=== PATIENT | female | born 1950 | race Caucasian/White ===

== ENCOUNTER 2016-10-07 19:41 | Emergency (ER) | payer MEDICARE, BC ==
--- NOTE | 2016-10-07 20:11 | XR ---
EXAMINATION TYPE: XR chest 1V portable DATE OF EXAM: 10/07/2016 COMPARISON: 03/19/2014 HISTORY: Altered mental status. Tube placement. TECHNIQUE: Single frontal view of the chest is obtained. FINDINGS: Endotracheal tube appears in good position. There is a nasogastric tube noted. There is le ft axillary pacemaker with the lead tips in the right ventricle. There are chest leads. Exam is limit ed by patient size. There is mild pulmonary congestion. Heart appears enlarged. IMPRESSION: Endotracheal tube is in good position. There is probably congestive heart failure.
[2016-10-07] MEDS ORDERED: PHYTONADIONE 10 MG in SODIUM CHLORIDE 0.9% 50 ML IVPB STA (20:16)
[2016-10-07] MEDS ORDERED: levETIRAcetam IV 1,000 MG in SALINE 1 100ML.BAG IVPB STA (20:17)
--- NOTE | 2016-10-07 20:27 | CT ---
EXAMINATION TYPE: CT brain wo con DATE OF EXAM: 10/07/2016 COMPARISON: NONE HISTORY: Patient unresponsive at time of exam. Altered mental status. CT DLP: 801.5 mGycm Automated exposure control for dose reduction was used. FINDINGS: There is a 5 x 2.5 cm area of increased attenuation in the left frontal lobe related to acute intrapa renchymal hemorrhage. There is slight mass effect and effacement of the adjacent sulci. Ventricles newell ve normal size. The calvarium is intact. IMPRESSION: ACUTE INTRAPARENCHYMAL LEFT FRONTAL LOBE HEMORRHAGE PROBABLY DUE TO HEMORRHAGIC INFARCT. THIS EXAM WA S DISCUSSED WITH EMERGENCY ROOM PHYSICIAN AT 8:25 PM.
[2016-10-07 20:52] LABS: Appearance,Urine Cloudy (Clear); Bacteria,Urine Many /hpf; Bilirubin,Urine Negative (Negative); Glucose,Urine (UA) Negative (Negative); Ketones,Urine 1+ (Negative); Leukocyte Esterase,Urine Large (Negative); Mucus,Urine Occasional /hpf; Nitrite,Urine Positive (Negative); Particle Count 61389; Protein,Urine 2+ (Negative); RBC,Urine 29 /hpf (0-5); Specific Gravity,Urine 1.017 (1.001-1.035); Squamous Epithelial Cell,Urine 2 /hpf (0-4); UA Billing (MACRO vs. MICRO) MICRO; Urobilinogen,Urine <2.0 mg/dL (<2.0); WBC,Urine >182 /hpf (0-5)
[2016-10-07 20:52] LABS: ALT 24 U/L (9-52); AST 20 U/L (14-36); Alkaline Phosphatase 81 U/L (38-126); Anion Gap 11 mmol/L; Anisocytosis Slight; Basophils # (A) 0.1 k/uL (0-0.2); Basophils % (A) 0 %; Blood Urea Nitrogen 19 mg/dL (7-17); CH 27.9; CHCM 32.7; Carbon Dioxide 20 mmol/L (22-30); Chloride 111 mmol/L (98-107); Creatine Kinase 54 U/L (30-135); Eosinophils % (A) 0 %; Glucose 118 mg/dL (74-99); HCT 40.8 % (34.0-46.0); HDW 2.94; HGB 13.6 gm/dL (11.4-16.0); Luc # (Auto) 0.11; Luc % (Auto) 1; Lymphocytes # (A) 0.9 k/uL (1.0-4.8); Lymphocytes % (A) 6 %; MCH 28.6 pg (25.0-35.0); MCHC 33.2 g/dL (31.0-37.0); MCV 85.9 fL (80.0-100.0); Mean Platelet Volume 9.3; Monocytes # (A) 0.4 k/uL (0-1.0); Monocytes % (A) 3 %; Neutrophils # (A) 12.8 k/uL (1.3-7.7); Neutrophils % (A) 90 %; Non-African American GFR(MDRD) >60 (>60 ml/min/1.73 sqM); RBC 4.75 m/uL (3.80-5.40); RDW 17.6 % (11.5-15.5); Sodium 142 mmol/L (137-145); Total Bilirubin 1.3 mg/dL (0.2-1.3); Total Protein 6.8 g/dL (6.3-8.2); WBC 14.3 k/uL (3.8-10.6); WBC (Perox) 13.56
[2016-10-07 20:57] LABS: INR 1.7 (<1.2); Partial Thromboplastin Time 27.3 sec (22.0-30.0); Prothrombin Time 16.8 sec (9.0-12.0)
[2016-10-07 21:04] LABS: Creatine Kinase MB 0.3 ng/mL (0.0-2.4); Troponin I <0.012 ng/mL (0.000-0.034)
[2016-10-07] MEDS ORDERED: PROPOFOL 1,000 MG/100 ML VIAL IV ONE (21:06)
[2016-10-07 21:07] VITALS: RESP 20
--- NOTE | 2016-10-07 21:11 | ED ---
General Adult HPI - General Chief complaint: Altered Mental Status Stated complaint: Unresponsive Time Seen by Provider: 10/07/16 19:52 Source: EMS, RN notes reviewed Mode of arrival: EMS Limitations: altered mental status - History of Present Illness Initial comments: 58-year-old female presenting with altered mental status, patient was transported by EMS. She is unable to give a history. She is on Coumadin. According to EMS history patient did complain of a headache, became unresponsive proximally 2 hours ago. During transport. Blood pressure was 230/ 130, right pupil 4 mm and sluggish, left pupil 3 mm and reactive, patient did have right-sided gaze, she was not moving any extremities spontaneously per EMS. - Related Data Home Medications Medication Instructions Recorded Confirmed Metoprolol Succinate [Toprol XL] 150 mg PO HS 02/09/15 10/07/16 Digoxin [Lanoxin] 125 mcg PO TID 10/07/16 10/07/16 Furosemide [Lasix] 40 mg PO DAILY 10/07/16 10/07/16 Lisinopril [Zestril] 20 mg PO DAILY 10/07/16 10/07/16 Metoprolol Succinate [Toprol XL] 200 mg PO QAM 10/07/16 10/07/16 Pravastatin Sodium [Pravachol] 20 mg PO BID 10/07/16 10/07/16 Allergies Allergy/AdvReac Type Severity Reaction Status Date / Time No Known Drug Allergies Allergy Unknown Verified 10/07/16 20:00 Review of Systems ROS Statement: Those systems with pertinent positive or pertinent negative responses have been documented in the HPI. Limitations: ROS unobtainable due to patients medical condition Past Medical History Past Medical History: Atrial Fibrillation, Heart Failure, COPD, GERD/Reflux, Hyperlipidemia, Hypertension Additional Past Medical History / Comment(s): PATIENT IS VERY SHORT OF BREATH TODAY (02/08/15), STATES SHE HAS BEEN LIKE THIS FOR MONTHS. SEE DR. BURNETT'S NOTE FOR CARDIAC HISTORY. KIDNEY STONES History of Any Multi-Drug Resistant Organisms: None Reported Past Surgical History: Joint Replacement, Pacemaker Additional Past Surgical History / Comment(s): LEFT TOTAL KNEE SURGERY WITH BONE GRAFT. Past Anesthesia/Blood Transfusion Reactions: No Reported Reaction Type of Cardiac Device: Permanent Pacemaker Device Placement Date:: 04/24/2013 Past Psychological History: Depression Smoking Status: Never smoker Past Alcohol Use History: None Reported Past Drug Use History: None Reported - Past Family History Father Additional Family Medical History / Comment(s): BRAIN ANEURYSM Mother Family Medical History: Coronary Artery Disease (CAD), Dementia Additional Family Medical History / Comment(s): FROM "HEART DISEASE " PER PATIENT. General Exam - General Exam Comments Initial Comments: 58-year-old female presented by EMS, initial examination revealed a hypertensive obese female with right gaze palsy, Pupils 4 mm sluggish, left pupil is 3 mm and reactive. Patient was unresponsive to deep sternal rub. She did withdraw to pain in the left upper and left lower extremity. There was no movement in the right upper or right lower extremity. Patient's head. The right. She does spontaneous respirations, however she was not protecting her airway. Lungs were equal, diminished bilaterally. Abdomen obese, soft, nondistended. 2+ pedal edema is present Limitations: altered mental status Course Vital Signs 10/07/16 10/07/16 19:54 20:33 Temperature 99.1 F Pulse Rate 121 H 112 H Respiratory 20 24 Rate Blood Pressure 173/111 166/95 O2 Sat by Pulse 98 99 Oximetry - Reevaluation(s) Reevaluation #1: 10/07/16 21:07 Patient was intubated for airway protection. Urgently taken to head CT. EKG Findings - EKG Comments: EKG Findings:: Sinus tachycardia ventricular rate of 106, QRS 78, QTC 494 Procedures - Intubation Time Out Performed: Yes Sedative: Etomidate Paralytic: Succinylcholine Laryngoscope: Pillo Size: 4 ET Tube Size: 7.5 ET Tube Uncuffed: No Tube Secured Depth (cm): 22 Tube Secured Location: lips Tube Placement Confirmation: visualized tube passing through cords, equal breath sounds bilaterally, no breath sounds over epigastrium, confirmation by capnometry Patient Tolerated Procedure: well Intubation Complications: none Medical Decision Making - Medical Decision Making 58-year-old female presenting with altered mental status, she complained of a headache prior to arrival. Initial evaluation patient is hypertensive, right- sided gaze, unequal pupils, she is on Coumadin. Patient was intubated and urgently taken to head CT. Head CT reviewed by myself reveals intraparenchymal hemorrhage. Patient is on Coumadin, she was given seizure prophylaxis, vitamin K, and fresh frozen plasma. Chest x-ray shows pulmonary edema, ET tube is in proper position. INR is 1.7, all other laboratory studies are pending. Patient will be transferred for neurosurgical evaluation. Diagnosis: Left intraparenchymal hemorrhage, on Coumadin. - Lab Data Result diagrams: 10/07/16 19:55 10/07/16 19:55 Lab Results 10/07/16 10/07/16 10/07/16 Range/Units 19:55 19:55 19:55 WBC 14.3 H (3.8-10.6) k/uL RBC 4.75 (3.80-5.40) m/uL Hgb 13.6 (11.4-16.0) gm/dL Hct 40.8 (34.0-46.0) % MCV 85.9 (80.0-100.0) fL MCH 28.6 (25.0-35.0) pg MCHC 33.2 (31.0-37.0) g/dL RDW 17.6 H (11.5-15.5) % Plt Count 213 (150-450) k/uL Neutrophils % 90 % Lymphocytes % 6 % Monocytes % 3 % Eosinophils % 0 % Basophils % 0 % Neutrophils # 12.8 H (1.3-7.7) k/uL Lymphocytes # 0.9 L (1.0-4.8) k/uL Monocytes # 0.4 (0-1.0) k/uL Eosinophils # 0.0 (0-0.7) k/uL Basophils # 0.1 (0-0.2) k/uL Anisocytosis Slight PT (9.0-12.0) sec INR (<1.2) APTT (22.0-30.0) sec Sodium 142 (137-145) mmol/L Potassium 5.0 (3.5-5.1) mmol/L Chloride 111 H (98-107) mmol/L Carbon Dioxide 20 L (22-30) mmol/L Anion Gap 11 mmol/L BUN 19 H (7-17) mg/dL Creatinine 0.80 (0.52-1.04) mg/dL Est GFR (MDRD) Af Amer >60 (>60 ml/min/1.73 sqM) Est GFR (MDRD) Non-Af >60 (>60 ml/min/1.73 sqM) Glucose 118 H (74-99) mg/dL Calcium 9.0 (8.4-10.2) mg/dL Total Bilirubin 1.3 (0.2-1.3) mg/dL AST 20 (14-36) U/L ALT 24 (9-52) U/L Alkaline Phosphatase 81 (38-126) U/L Total Creatine Kinase 54 (30-135) U/L Total Protein 6.8 (6.3-8.2) g/dL Albumin 4.0 (3.5-5.0) g/dL Urine Color Urine Appearance (Clear) Urine pH (5.0-8.0) Ur Specific [place] (1.001-1.035) Urine Protein (Negative) Urine Glucose (UA) (Negative) Urine Ketones (Negative) Urine Blood (Negative) Urine Nitrite (Negative) Urine Bilirubin (Negative) Urine Urobilinogen (<2.0) mg/dL Ur Leukocyte Esterase (Negative) Urine RBC (0-5) /hpf Urine WBC (0-5) /hpf Urine WBC Clumps (None) /hpf Ur Squamous Epith Cells (0-4) /hpf Urine Bacteria (None) /hpf Urine Mucus (None) /hpf 10/07/16 10/07/16 Range/Units 19:55 20:37 WBC (3.8-10.6) k/uL RBC (3.80-5.40) m/uL Hgb (11.4-16.0) gm/dL Hct (34.0-46.0) % MCV (80.0-100.0) fL MCH (25.0-35.0) pg MCHC (31.0-37.0) g/dL RDW (11.5-15.5) % Plt Count (150-450) k/uL Neutrophils % % Lymphocytes % % Monocytes % % Eosinophils % % Basophils % % Neutrophils # (1.3-7.7) k/uL Lymphocytes # (1.0-4.8) k/uL Monocytes # (0-1.0) k/uL Eosinophils # (0-0.7) k/uL Basophils # (0-0.2) k/uL Anisocytosis PT 16.8 H (9.0-12.0) sec INR 1.7 H (<1.2) APTT 27.3 (22.0-30.0) sec Sodium (137-145) mmol/L Potassium (3.5-5.1) mmol/L Chloride (98-107) mmol/L Carbon Dioxide (22-30) mmol/L Anion Gap mmol/L BUN (7-17) mg/dL Creatinine (0.52-1.04) mg/dL Est GFR (MDRD) Af Amer (>60 ml/min/1.73 sqM) Est GFR (MDRD) Non-Af (>60 ml/min/1.73 sqM) Glucose (74-99) mg/dL Calcium (8.4-10.2) mg/dL Total Bilirubin (0.2-1.3) mg/dL AST (14-36) U/L ALT (9-52) U/L Alkaline Phosphatase (38-126) U/L Total Creatine Kinase (30-135) U/L Total Protein (6.3-8.2) g/dL Albumin (3.5-5.0) g/dL Urine Color Yellow Urine Appearance Cloudy H (Clear) Urine pH 6.0 (5.0-8.0) Ur Specific [place] 1.017 (1.001-1.035) Urine Protein 2+ H (Negative) Urine Glucose (UA) Negative (Negative) Urine Ketones 1+ H (Negative) Urine Blood Moderate H (Negative) Urine Nitrite Positive H (Negative) Urine Bilirubin Negative (Negative) Urine Urobilinogen <2.0 (<2.0) mg/dL Ur Leukocyte Esterase Large H (Negative) Urine RBC 29 H (0-5) /hpf Urine WBC >182 H (0-5) /hpf Urine WBC Clumps Many H (None) /hpf Ur Squamous Epith Cells 2 (0-4) /hpf Urine Bacteria Many H (None) /hpf Urine Mucus Occasional H (None) /hpf Critical Care Time Critical Care Time: Yes Total Critical Care Time: 65 Disposition Clinical Impression: Intracranial hemorrhage Disposition: OTHER INSTITUTION NOT DEFINED Condition: Serious Referrals: Ritchie Rose MD [Primary Care Provider] - 1-2 days Time of Disposition: 21:10 - Out of Hospital Transfer - Req. Specs Out of Hospital Transfer - Requested Specifics: Surgical ICU (Artie Hubbell)
[2016-10-07 21:52] LABS: ABG Base Excess -5.1 mmol/L; ABG HCO3 19 mmol/L (21-25); ABG PCO2 33 mmHg (35-45); ABG PH 7.38 (7.35-7.45); ABG PO2 268 mmHg (83-108); ABG TCO2 20 mmol/L (19-24)
[2016-10-07 21:54] VITALS: BP 166/80; PULSE 103; TEMP 100
== END 2016-10-07 22:24 | disposition short-term general hospital (02) ==
LOC: EC 19:41
DX: I62.9 Nontraumatic intracranial hemorrhage, unspecified (principal); I48.91 Unspecified atrial fibrillation; I11.0 Hypertensive heart disease with heart failure; I50.9 Heart failure, unspecified; E78.5 Hyperlipidemia, unspecified; E66.9 Obesity, unspecified; Z68.43 Body mass index [BMI] 50.0-59.9, adult; Z79.01 Long term (current) use of anticoagulants; Z79.899 Other long term (current) drug therapy
CPT/HCPCS: 99291; 31500; 96365; 96368; 36415; 36600; 94002; 93005; 86900; 86901; 80053; 82550; 82553; 82805; 84484; 85025; 85610; 85730; 86850; 81001; 80306; 71010; 70450; P9059; J3430; J2704; J1953

== ENCOUNTER 2017-06-04 13:42 | Day surgery (SDC) | payer MEDICARE, BC ==
[2017-05-29 14:09] VITALS: BMI 58.7
[~2017-06-04 13:42] MED LIST: SODIUM CHLORIDE 0.9% 1,000 ML IV SCH; ceFAZolin 1,000 MG in SODIUM CHLORIDE 0.9% IRRIGATIO 250 ML IRRIGATION ONE; ceFAZolin IN SWFI 2 GM/20 ML SYRINGE IVP ONE
[2017-06-04 14:20] LABS: Basophils # (A) 0.1 k/uL (0-0.2); Basophils % (A) 1 %; Eosinophils # (A) 0.3 k/uL (0-0.7); Eosinophils % (A) 4 %; HCT 44.5 % (34.0-46.0); HGB 14.9 gm/dL (11.4-16.0); Lymphocytes # (A) 0.9 k/uL (1.0-4.8); Lymphocytes % (A) 11 %; MCH 27.5 pg (25.0-35.0); MCHC 33.4 g/dL (31.0-37.0); MCV 82.4 fL (80.0-100.0); Mean Platelet Volume 8.8; Monocytes # (A) 0.4 k/uL (0-1.0); Monocytes % (A) 5 %; Neutrophils # (A) 6.1 k/uL (1.3-7.7); Neutrophils % (A) 78 %; Platelet Count 200 k/uL (150-450); RBC 5.41 m/uL (3.80-5.40); RDW 15.4 % (11.5-15.5); WBC 7.9 k/uL (3.8-10.6)
[2017-06-04 14:33] LABS: Anion Gap 12 mmol/L; Blood Urea Nitrogen 15 mg/dL (7-17); Calcium 9.6 mg/dL (8.4-10.2); Carbon Dioxide 24 mmol/L (22-30); Chloride 108 mmol/L (98-107); Glucose 98 mg/dL (74-99); Potassium 4.3 mmol/L (3.5-5.1); Sodium 144 mmol/L (137-145)
[2017-06-04] MEDS ORDERED: ACETAMINOPHEN TAB 325 MG TAB PO PRN (17:52)
[2017-06-04] MEDS ORDERED: ceFAZolin IN SWFI 2 GM/20 ML SYRINGE IVP SCH ×2 (18:00→22:00)
--- NOTE | 2017-06-04 18:01 | P.DS ---
Providers Attending physician: Memo Boo Primary care physician: [facility] Course: Patient underwent successful biventricular pacemaker generator change She received 3 g of Kefzol preoperatively and 2 g of at 10 PM and was discharged home on same day Impression Permanent atrial fibrillation Unable to anticoagulate history of intracerebral bleed Cardiomyopathy Left bundle branch block Congestive heart failure Bradycardia Status post biventricular pacemaker generator change Device was at [facility] Plan Oral antibiotics 2 doses She will follow-up with the device clinic in 5 days She is to keep the wound dry for 5 days She will follow-up with Dr. Marshall in about 4 months Plan - Discharge Summary Discharge Rx Participant: Yes New Discharge Prescriptions: Continue Lisinopril [Zestril] 20 mg PO DAILY Digoxin [Lanoxin] 125 mcg PO MOWEFR Atorvastatin [Lipitor] 40 mg PO HS Metoprolol Succinate [Toprol XL] 200 mg PO DAILY traMADol HCL [Ultram] 50 mg PO BID Discharge Medication List Digoxin [Lanoxin] 125 mcg PO MOWEFR 10/07/16 [History] Lisinopril [Zestril] 20 mg PO DAILY 10/07/16 [History] Atorvastatin [Lipitor] 40 mg PO HS 05/29/17 [History] Metoprolol Succinate [Toprol XL] 200 mg PO DAILY 05/29/17 [History] traMADol HCL [Ultram] 50 mg PO BID 05/29/17 [History] Follow up Appointment(s)/Referral(s): Memo Boo MD [STAFF PHYSICIAN] - 6 Weeks Activity/Diet/Wound Care/Special Instructions: Keep wound dry for 5 days. Follow-up in the device clinic in [address] Marshall in about 3-4 months No changes in medications Patient is not a candidate for anticoagulation Discharge Disposition: HOME SELF-CARE
[2017-06-04] MEDS ORDERED: MIDAZOLAM 2 MG/2 ML VIAL ONE (18:02)
[2017-06-04] MEDS ORDERED: fentaNYL (PF) 50 MCG/ML 2 ML AMP ONE (18:02)
[2017-06-04] MEDS ORDERED: MIDAZOLAM 2 MG/2 ML VIAL IV ONE (18:03)
[2017-06-04] MEDS: fentaNYL (PF) 50 MCG/ML 2 ML AMP IV ONE ×2 (18:15→18:53)
[2017-06-04] MEDS ORDERED: LIDOCAINE 1% INJ 10MG/ML (20 ML MDV) SQ ONE ×2 (18:15)
--- NOTE | 2017-06-04 18:57 | P.PCN ---
Preoperative Diagnosis: Patient underwent EP procedure under conscious sedation/moderate sedation, monitoring of the level of consciousness and physiologic parameters including but not limited to vital signs and oxygenation. Patient tolerated the procedure well without any acute complications. Start time: 1812 Stop time: 0 37 minutes
[2017-06-04] MEDS ORDERED: METOPROLOL SUCCINATE (ER) 100 MG TAB.ER.24H PO STA (19:02)
[2017-06-04] MEDS ORDERED: ACETAMINOPHEN IV (For NPO) 1,000 MG in EMPTY BAG 1 BAG IVPB ONE (19:30)
[2017-06-04 19:43] VITALS: PULSE 81; TEMP 97.8
--- NOTE | 2017-06-04 22:31 | CE ---
CARDIAC ELECTROPHYSIOLOGY REPORT Ana Sheppard is a 66-year-old female with known bradycardia, cardiomyopathy, status post biventricular pacemaker, now in permanent atrial fibrillation, whose device was at [facility]. She was brought in for a biventricular pacemaker generator change. She was brought to the EP lab in a fasting state. Written informed consent was obtained prior to the procedure. The left shoulder area was prepped and draped as per protocol. Lidocaine 1% was used for local anesthesia. An incision was made directly over the previous surgical site and carried down to the level of the generator. The scar tissue was excised. Partial capsulectomy was performed. Hemostasis was assured. The old generator (Medtronic C4TR01, serial #[id number]) was explanted. The new generator, [employer] model #HF1652 serial #[id number], was implanted. The atrial lead was a Medtronic model #5592, serial number [id number]. Pacing impedance was 410 ohms. Fibrillatory wave sensing was 1 mV. The RV lead was a Medtronic model #5092, serial #[id number]. R-waves 11.3 mV and pacing impedance 440 ohms. Pacing threshold 0.75 v at 0.4 milliseconds. The LV lead was a Medtronic model #4396, serial #[id number]. Pacing impedance 510 ohms, pacing threshold 3.25 v at 1.5 milliseconds. The device was then programmed to VVTR mode 60-130 ppm. LV offset 20 milliseconds. The wound was closed in 3 layers and dressed per protocol. She received IV antibiotics just prior to the procedure. The patient tolerated the procedure well without any acute complications. RESULT: Successful biventricular pacemaker generator change for device at [facility]. MMODL / IJN: [id number] /
[2017-06-04 22:51] VITALS: BP 173/96
[2017-06-05 00:16] VITALS: RESP 18
== END 2017-06-04 23:15 | disposition home or self-care (01) ==
LOC: CATHEP 13:42 → 3OBS 18:50 → CATHEP 23:15
PROVIDERS: ATTEND Internal Medicine Clinical Cardiac Electrophysiology
DX: Z45.010 Encounter for checking and testing of cardiac pacemaker pulse generator [battery] (principal); I48.2 Chronic atrial fibrillation; I42.9 Cardiomyopathy, unspecified; I44.7 Left bundle-branch block, unspecified; I50.9 Heart failure, unspecified; R00.1 Bradycardia, unspecified; Z79.891 Long term (current) use of opiate analgesic; Z79.899 Other long term (current) drug therapy
CPT/HCPCS: 33229; 80048; 85025; C2621; J2250; J0690 ×3; J2001; J3010

== ENCOUNTER 2018-02-20 09:17 | Inpatient (IN) | payer MEDICARE, BC ==
[2018-02-20] MEDS ORDERED: ALBUTEROL NEBULIZED 2.5 MG/3 ML INHALATION STA (09:27)
[2018-02-20] MEDS ORDERED: IPRATROPIUM 0.5 MG/2.5 ML NEBU INHALATION STA (09:27)
[2018-02-20] MEDS ORDERED: methylPREDNISolone SOD SUCCI 125 MG/2 ML VIAL IV STA (09:27)
[2018-02-20] MEDS ORDERED: FUROSEMIDE 10 MG/ML 4 ML VIAL IV STA ×2 (09:33→11:07)
--- NOTE | 2018-02-20 09:36 | ED ---
General Adult HPI - General Chief complaint: Shortness of Breath Stated complaint: RENZO Time Seen by Provider: 02/20/18 09:25 Source: patient, RN notes reviewed, old records reviewed Mode of arrival: EMS Limitations: no limitations - History of Present Illness Initial comments: 67-year-old female presents with 24 hours of dyspnea. Patient is also had cough and rhinorrhea. No history of COPD, no history of tobacco use. Patient does have previous history of heart failure and history of atrial fibrillation status post pacemaker. Denies fever but states she's had some chills. Denies chest pain. Denies abdominal pain nausea or vomiting. Denies new lower extremity swelling or tenderness patient does have some chronic bilateral lower extremity pain which is unchanged from baseline. Patient reports recent weight gain. - Related Data Home Medications Medication Instructions Recorded Confirmed Digoxin [Lanoxin] 125 mcg PO MOWEFR 10/07/16 02/20/18 Atorvastatin [Lipitor] 40 mg PO HS 05/29/17 02/20/18 Acetaminophen Tab [Tylenol Tab] 1,000 mg PO BID 02/20/18 02/20/18 Irbesartan 300 mg PO DAILY 02/20/18 02/20/18 Metoprolol Succinate (ER) [Toprol 100 mg PO BID 02/20/18 02/20/18 Xl] Allergies Allergy/AdvReac Type Severity Reaction Status Date / Time aspirin AdvReac Unknown STATES SHE Verified 02/20/18 09:28 WAS TOLD NOT TO TAKE. NSAIDS (Non-Steroidal AdvReac Unknown STATES SHE Verified 02/20/18 09:28 Anti-Inflamma WAS TOLD TO AVOID Iodinated Contrast- Oral and AdvReac Verified 02/20/18 10:43 IV Dye Review of Systems ROS Statement: Those systems with pertinent positive or pertinent negative responses have been documented in the HPI. ROS Other: All systems not noted in ROS Statement are negative. 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 History of Any Multi-Drug Resistant Organisms: None Reported Past Surgical History: Joint Replacement, Pacemaker, Tonsillectomy Additional Past Surgical History / Comment(s): LEFT TOTAL KNEE WITH BONE GRAFT., Past Anesthesia/Blood Transfusion Reactions: No Reported Reaction Type of Cardiac Device: Permanent Pacemaker Device Placement Date:: 04/24/2013 Past Psychological History: Anxiety, Depression Smoking Status: Never smoker Past Alcohol Use History: Rare Past Drug Use History: None Reported - Past Family History Father Additional Family Medical History / Comment(s): BRAIN ANEURYSM Mother Family Medical History: Coronary Artery Disease (CAD), Dementia Additional Family Medical History / Comment(s): FROM "HEART DISEASE " PER PATIENT. General Exam Limitations: no limitations General appearance: alert, in no apparent distress Head exam: Present: atraumatic, normocephalic Eye exam: Present: normal appearance, PERRL ENT exam: Present: normal exam Neck exam: Present: normal inspection. Absent: tenderness, meningismus Respiratory exam: Present: respiratory distress, wheezes, decreased breath sounds. Absent: rhonchi Cardiovascular Exam: Present: regular rate, normal rhythm GI/Abdominal exam: Present: soft. Absent: distended, tenderness, guarding, rebound Extremities exam: Present: normal capillary refill, pedal edema. Absent: calf tenderness Neurological exam: Present: alert, oriented X3, motor sensory deficit Psychiatric exam: Present: normal affect, normal mood Skin exam: Present: warm, dry, intact. Absent: cyanosis, diaphoretic Course Vital Signs 02/20/18 02/20/18 02/20/18 09:22 09:30 09:32 Temperature 98.5 F Pulse Rate 71 92 94 Respiratory 30 H 12 Rate Blood Pressure 147/98 147/98 O2 Sat by Pulse 95 92 L Oximetry 02/20/18 02/20/18 02/20/18 10:00 10:10 10:20 Temperature Pulse Rate 92 96 Respiratory 20 19 Rate Blood Pressure 147/113 159/115 159/115 O2 Sat by Pulse 95 92 L Oximetry 02/20/18 02/20/18 02/20/18 10:30 10:40 10:50 Temperature Pulse Rate 89 93 93 Respiratory 20 19 18 Rate Blood Pressure 159/115 150/123 150/123 O2 Sat by Pulse 91 L 91 L 92 L Oximetry 02/20/18 02/20/18 11:21 11:33 Temperature 98.2 F Pulse Rate 96 Respiratory 24 Rate Blood Pressure 175/121 155/88 O2 Sat by Pulse 92 L Oximetry EKG Findings - EKG Comments: EKG Findings:: EKG: Atrial fibrillation left axis deviation, rate 97, QRS duration 82, QTC 431, no ST segment elevation Medical Decision Making - Medical Decision Making 67-year-old female with moderate to severe dyspnea. History of congestive heart failure. X-ray obtained, consistent with venous congestion and congestive heart failure. Significantly elevated BNP 8810. Normal white blood cell count, stable in room, normal CMP, negative troponin. Patient given nitroglycerin and Lasix in the emergency department. On reevaluation symptoms somewhat improved. She will be admitted for continued IV diuresis, telemetry, echo, cardiology consultation. Case discussed with admitting physician who will accept. - Lab Data Result diagrams: 02/20/18 09:35 02/20/18 09:35 Lab Results 02/20/18 02/20/18 02/20/18 Range/Units 09:35 09:35 09:35 WBC 6.2 (3.8-10.6) k/uL RBC 5.12 (3.80-5.40) m/uL Hgb 13.9 (11.4-16.0) gm/dL Hct 44.9 (34.0-46.0) % MCV 87.7 (80.0-100.0) fL MCH 27.2 (25.0-35.0) pg MCHC 31.0 (31.0-37.0) g/dL RDW 17.0 H (11.5-15.5) % Plt Count 155 (150-450) k/uL Neutrophils % 79 % Lymphocytes % 9 % Monocytes % 7 % Eosinophils % 3 % Basophils % 1 % Neutrophils # 4.9 (1.3-7.7) k/uL Lymphocytes # 0.5 L (1.0-4.8) k/uL Monocytes # 0.5 (0-1.0) k/uL Eosinophils # 0.2 (0-0.7) k/uL Basophils # 0.0 (0-0.2) k/uL Hypochromasia Moderate Anisocytosis Slight PT (9.0-12.0) sec INR (<1.2) APTT (22.0-30.0) sec Sodium 147 H (137-145) mmol/L Potassium 4.5 (3.5-5.1) mmol/L Chloride 113 H (98-107) mmol/L Carbon Dioxide 24 (22-30) mmol/L Anion Gap 10 mmol/L BUN 22 H (7-17) mg/dL Creatinine 0.83 (0.52-1.04) mg/dL Est GFR (CKD-EPI)AfAm 84 (>60 ml/min/1.73 sqM) Est GFR (CKD-EPI)NonAf 73 (>60 ml/min/1.73 sqM) Glucose 118 H (74-99) mg/dL Plasma Lactic Acid Eduardo (0.7-2.0) mmol/L Calcium 9.4 (8.4-10.2) mg/dL Magnesium 2.1 (1.6-2.3) mg/dL Total Bilirubin 1.3 (0.2-1.3) mg/dL AST 21 (14-36) U/L ALT 26 (9-52) U/L Alkaline Phosphatase 98 (38-126) U/L Total Creatine Kinase 81 (30-135) U/L CK-MB (CK-2) 1.4 (0.0-2.4) ng/mL CK-MB (CK-2) Rel Index 1.7 Troponin I <0.012 (0.000-0.034) ng/mL NT-Pro-B Natriuret Pep pg/mL Total Protein 7.1 (6.3-8.2) g/dL Albumin 4.0 (3.5-5.0) g/dL 02/20/18 02/20/18 02/20/18 Range/Units 09:35 09:35 09:35 WBC (3.8-10.6) k/uL RBC (3.80-5.40) m/uL Hgb (11.4-16.0) gm/dL Hct (34.0-46.0) % MCV (80.0-100.0) fL MCH (25.0-35.0) pg MCHC (31.0-37.0) g/dL RDW (11.5-15.5) % Plt Count (150-450) k/uL Neutrophils % % Lymphocytes % % Monocytes % % Eosinophils % % Basophils % % Neutrophils # (1.3-7.7) k/uL Lymphocytes # (1.0-4.8) k/uL Monocytes # (0-1.0) k/uL Eosinophils # (0-0.7) k/uL Basophils # (0-0.2) k/uL Hypochromasia Anisocytosis PT 10.7 (9.0-12.0) sec INR 1.1 (<1.2) APTT 22.0 (22.0-30.0) sec Sodium (137-145) mmol/L Potassium (3.5-5.1) mmol/L Chloride (98-107) mmol/L Carbon Dioxide (22-30) mmol/L Anion Gap mmol/L BUN (7-17) mg/dL Creatinine (0.52-1.04) mg/dL Est GFR (CKD-EPI)AfAm (>60 ml/min/1.73 sqM) Est GFR (CKD-EPI)NonAf (>60 ml/min/1.73 sqM) Glucose (74-99) mg/dL Plasma Lactic Acid Eduardo 1.2 (0.7-2.0) mmol/L Calcium (8.4-10.2) mg/dL Magnesium (1.6-2.3) mg/dL Total Bilirubin (0.2-1.3) mg/dL AST (14-36) U/L ALT (9-52) U/L Alkaline Phosphatase (38-126) U/L Total Creatine Kinase (30-135) U/L CK-MB (CK-2) (0.0-2.4) ng/mL CK-MB (CK-2) Rel Index Troponin I (0.000-0.034) ng/mL NT-Pro-B Natriuret Pep 8810 pg/mL Total Protein (6.3-8.2) g/dL Albumin (3.5-5.0) g/dL Critical Care Time Critical Care Time: Yes Total Critical Care Time: 35 Disposition Clinical Impression: Congestive heart failure Disposition: ADMITTED IP TO THIS [facility] Condition: Stable Is patient prescribed a controlled substance at d/c from ED?: No Referrals: Elieser Cooper DO [Primary Care Provider] - 1-2 days Decision to Admit Reason: Admit from EC Decision Date: 02/20/18 Decision Time: 12:05
[2018-02-20 10:07] LABS: Anisocytosis Slight; Basophils % (A) 1 %; Eosinophils # (A) 0.2 k/uL (0-0.7); Eosinophils % (A) 3 %; HCT 44.9 % (34.0-46.0); HGB 13.9 gm/dL (11.4-16.0); Hypochromasia Moderate; Lymphocytes # (A) 0.5 k/uL (1.0-4.8); Lymphocytes % (A) 9 %; MCH 27.2 pg (25.0-35.0); MCV 87.7 fL (80.0-100.0); Mean Platelet Volume 9.2; Monocytes # (A) 0.5 k/uL (0-1.0); Monocytes % (A) 7 %; Neutrophils # (A) 4.9 k/uL (1.3-7.7); Neutrophils % (A) 79 %; Platelet Count 155 k/uL (150-450); RBC 5.12 m/uL (3.80-5.40); WBC 6.2 k/uL (3.8-10.6)
[2018-02-20 10:20] LABS: Calcium 9.4 mg/dL (8.4-10.2); Magnesium 2.1 mg/dL (1.6-2.3); Potassium 4.5 mmol/L (3.5-5.1); Total Bilirubin 1.3 mg/dL (0.2-1.3); Total Protein 7.1 g/dL (6.3-8.2)
--- NOTE | 2018-02-20 10:24 | XR ---
EXAMINATION TYPE: XR chest 2V DATE OF EXAM: 02/20/2018 COMPARISON: 10/07/2016 HISTORY: Shortness of breath TECHNIQUE: Frontal and lateral views of the chest are obtained. FINDINGS: Scattered senescent parenchymal changes noted. Lung volumes are diminished. Perihilar and basilar infiltrates and small effusions are present. There is evidence of pulmonary michael ous congestion. Heart size is enlarged. Mediastinal structures are stable and grossly unremarkable. No evidence for hilar prominence. Degenerative changes dorsal spine. IMPRESSION: 1. Correlate for congestive failure. Underlying pneumonia is not excluded. Correlate clinically progr ess studies are recommended.
[2018-02-20 10:27] LABS: Creatine Kinase 81 U/L (30-135); INR 1.1 (<1.2); Prothrombin Time 10.7 sec (9.0-12.0)
[2018-02-20 10:40] LABS: Creatine Kinase MB 1.4 ng/mL (0.0-2.4); Troponin I <0.012 ng/mL (0.000-0.034)
[2018-02-20] MEDS ORDERED: NITROGLYCERIN SL TABS 0.4 MG TAB SUBLINGUAL STA (10:50)
[2018-02-20] MEDS ORDERED: NALOXONE 0.4 MG/ML 1 ML VIAL IV PRN (12:02)
[2018-02-20] MEDS ORDERED: INFLUENZA VACCINE (6 MOS+) 60 MCG/0.5 ML SYRINGE IM ONE (13:58)
--- NOTE | 2018-02-20 15:14 | ECHOF ---
Referral Reason:chf MEASUREMENTS -------- HEIGHT: 180.3 cm WEIGHT: 145.6 kg BP: 155/88 RVIDd: 4.0 cm (< 3.3) IVSd: 1.6 cm (0.6 - 1.1) LVIDd: 4.3 cm (3.9 - 5.3) LVPWd: 1.6 cm (0.6 - 1.1) IVSs: 1.9 cm LVIDs: 2.9 cm LVPWs: 1.6 cm LAESV Index (A-L): 29.64 ml/m Ao Diam: 3.3 cm (2.0 - 3.7) AV Cusp: 2.3 cm (1.5 - 2.6) LA Diam: 4.2 cm (2.7 - 3.8) MV EXCURSION: 18.351 mm (> 18.000) MV EF SLOPE: 138 mm/s (70 - 150) EPSS: 1.5 cm FINDINGS -------- Atrial fibrillation. Pacerwire seen in RV and RA. This was a technically difficult study with suboptimal views. The left ventricular size is normal. There is moderate concentric left ventricular hypertrophy. O verall left ventricular systolic function is normal with, an EF between 55 - 60 %. The right ventricle is severely enlarged. LA is midly dilated 29-33ml/m2. RA appears enlarged. Lumason used The aortic valve is trileaflet, and appears structurally normal. No aortic stenosis or regurgitation. Moderate mitral regurgitation is present. Moderate tricuspid regurgitation present. There is mild pulmonary hypertension. The right ventric ular systolic pressure, as measured by Doppler, is {RVSP}. The pulmonic valve was not well visualized. The aortic root size is normal. There is no pericardial effusion. CONCLUSIONS -------- 1. Atrial fibrillation. 2. Pacerwire seen in RV and RA. 3. This was a technically difficult study with suboptimal views. 4. The left ventricular size is normal. 5. There is moderate concentric left ventricular hypertrophy. 6. Overall left ventricular systolic function is normal with, an EF between 55 - 60 %. 7. The right ventricle is severely enlarged. 8. LA is midly dilated 29-33ml/m2. 9. RA appears enlarged. 10. Lumason used 11. The aortic valve is trileaflet, and appears structurally normal. No aortic stenosis or regurgitat ion. 12. Moderate mitral regurgitation is present. 13. Moderate tricuspid regurgitation present. 14. There is mild pulmonary hypertension. 15. The pulmonic valve was not well visualized. 16. The aortic root size is normal. 17. There is no pericardial effusion. LICENSE ISSUER: Amanda Craig RDCS
[2018-02-20] MEDS: LOSARTAN 50 MG TAB PO SCH (15:27)
[2018-02-20] MEDS: METOPROLOL SUCCINATE (ER) 100 MG TAB.ER.24H PO SCH ×2 (15:27→22:37)
[2018-02-20] MEDS: DIGOXIN 125 MCG TAB PO SCH (15:27)
[2018-02-20] MEDS: ACETAMINOPHEN TAB 500 MG TAB PO SCH (18:09)
[2018-02-20] MEDS: ATORVASTATIN 40 MG TAB PO SCH (20:56)
[2018-02-20] MEDS: FUROSEMIDE 10 MG/ML 4 ML VIAL IV SCH (20:56)
[2018-02-20] MEDS ORDERED: MAGNESIUM HYDROXIDE 2,400 MG/10 ML CUP PO PRN (23:09)
[2018-02-20] MEDS ORDERED: CALCIUM CARBONATE 500 MG CHEWABLE PO PRN (23:09)
[2018-02-20] MEDS ORDERED: ONDANSETRON 4 MG/2 ML VIAL IVP PRN (23:09)
[2018-02-20] MEDS ORDERED: MELATONIN 3 MG TABLET PO PRN (23:09)
[2018-02-20] MEDS ORDERED: LACTULOSE 20 GM/30 ML CUP PO PRN (23:09)
--- NOTE | 2018-02-21 | HP ---
HISTORY AND PHYSICAL DATE OF ADMISSION: 02/20/2018 DATE OF SERVICE: 02/20/2018 PRESENTING COMPLAINT: Short of breath. HISTORY OF PRESENTING COMPLAINT: This is a 67-year-old patient who follows with Dr. Cooper. She has a rather extensive medical history. Chronic stable medical conditions include hypertension, hyperlipidemia, atrial fibrillation, not taking any anticoagulation because of a brain bleed, GERD, osteoarthritis, diverticulosis, biventricular pacemaker, anxiety, depression. Patient has not been feeling well for a few weeks. Also has physical therapy at home. Lately noted that she was getting more tired, really could not get up, even from sitting positions. Patient's appetite is fair. She became more and more short of breath today and presented to the ER with some wheezing. Patient does sleep on a couch and is pretty much orthopneic. She also has edema of the lower extremities. Patient in the ER was found to have elevated BNP and was given Lasix, with which she is feeling a little bit better. Patient does follow with Dr. Boo from Cardiology. Denies any fever or chills. REVIEW OF SYSTEMS: CONSTITUTIONAL: Tired. HEENT: None. RESPIRATORY: As above. CARDIOVASCULAR: As above. GASTROINTESTINAL: None. GENITOURINARY: Urinary incontinence. MUSCULOSKELETAL: Arthritic pain in many joints. DERMATOLOGICAL: Some skin changes. HEMATOLOGICAL: None. LYMPHATICS: None. PSYCHIATRY: None. NEUROLOGICAL: None. PAST MEDICAL HISTORY: 1. Persistent atrial fibrillation. 2. Congestive heart failure from diastolic dysfunction. 3. Left eye keratoconus causing blurry vision. 4. GERD. 5. Hyperlipidemia. 6. Hypertension. 7. Osteoarthritis. 8. 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 9. Bradycardia. 10.Nephrolithiasis. 11.Anemia. 12.Lower GI bleed. 13.Diverticulosis. 14.Erythema nodosum. 15.Chronic knee pain. 16.Occasional back pain. 17.Right-sided sciatica. PAST SURGICAL HISTORY: 1. Pacemaker. 2. Tonsillectomy. 3. Biventricular pacemaker. Had a generator change in May of this year. 4. Cardioversion. 5. Cardiac cath in 2012 without intervention. 6. Left total knee with bone graft. PSYCH HISTORY: Anxiety, depression, PTSD. SOCIAL HISTORY: Lives by herself. Does use a walker. 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 No smoking. Alcohol rarely. FAMILY HISTORY: Coronary artery disease, brain aneurysm. HOME MEDICATIONS: 1. Lipitor 40 mg at bedtime. 2. Tylenol 1000 mg p.o. b.i.d. 3. Toprol-XL 100 mg b.i.d. 4. Irbesartan 300 mg p.o. daily. 5. Digoxin 125 mcg Sunday, Sunday, Sunday. ALLERGIES: 1. ASPIRIN. 2. IV CONTRAST. 3. NSAIDS. PHYSICAL EXAMINATION: Temperature 98.5, pulse 71, respiration 30, blood pressure 147/98, pulse ox 95% on 5 L. GENERAL APPEARANCE: Morbidly obese; BMI 64.8. Sitting up in a chair. Short of breath. EYES: Pupils equal. Conjunctivae normal. HEENT: External appearance of nose and ears normal. Oral cavity normal. NECK: Short, thick. Unable to assess. RESPIRATORY: Effort increased. LUNGS: Decreased breath sounds. CARDIOVASCULAR: Heart sounds irregular. Some edema. ABDOMEN: Distended. Soft. Liver and spleen not palpable. LYMPHATIC: No lymph node palpable in neck or axillae. PSYCHIATRY: Alert and oriented x3. Mood and affect slightly anxious. NEUROLOGICAL: Pupils equal. Cranial nerves grossly intact. Power and sensation grossly intact. INVESTIGATIONS: White count 6.2, hemoglobin 13.9, potassium 4.5, BUN 22, creatinine 0.83. ProBNP 8810. Troponin negative. Chest x-ray is a poor inspiratory film; maybe venous prominence. Last echocardiogram showed preserved LV function, dilated right ventricle, tricuspid regurgitation. ASSESSMENT: 1. Acute on chronic congestive heart failure from preserved left ventricular function/diastolic dysfunction and possibly from underlying atrial fibrillation. 2. Persistent atrial fibrillation; not a candidate for anticoagulation due to prior intracerebral bleed. 3. Morbid obesity with body mass index 64.8. 4. Essential hypertension. 5. Hyperlipidemia. 6. Gastroesophageal reflux disease. 7. Primary osteoarthritis, especially of the knees. 8. Colonic diverticulosis. 9. Left eye keratoconus with blurred vision, left eye. 10.Chronic urinary stress incontinence. 11.Anxiety and depression not otherwise specified. 12.Biventricular pacemaker. PLAN: Home medications will be resumed. Patient is put on IV Lasix. Cardiology was consulted. We will also get Physical Therapy involved. Electrolytes will be followed closely. Patient will probably need some strengthening exercises for her proximal muscles. Care was discussed with the patient. Questions were answered. MMODL / IJN: [id number] /
[2018-02-21 07:00] LABS: Anisocytosis Slight; Basophils % (A) 0 %; Eosinophils % (A) 0 %; HCT 43.3 % (34.0-46.0); HGB 12.7 gm/dL (11.4-16.0); Hypochromasia Marked; Lymphocytes # (A) 0.3 k/uL (1.0-4.8); Lymphocytes % (A) 5 %; MCH 26.6 pg (25.0-35.0); MCHC 29.4 g/dL (31.0-37.0); MCV 90.4 fL (80.0-100.0); Mean Platelet Volume 8.8; Monocytes # (A) 0.4 k/uL (0-1.0); Monocytes % (A) 7 %; Neutrophils # (A) 5.9 k/uL (1.3-7.7); Neutrophils % (A) 87 %; Platelet Count 146 k/uL (150-450); RBC 4.79 m/uL (3.80-5.40); RDW 16.9 % (11.5-15.5); WBC 6.8 k/uL (3.8-10.6)
[2018-02-21 07:10] LABS: Potassium 4.8 mmol/L (3.5-5.1)
[2018-02-21] MEDS: ACETAMINOPHEN TAB 500 MG TAB PO SCH ×2 (09:35→21:00)
[2018-02-21] MEDS: METOPROLOL SUCCINATE (ER) 100 MG TAB.ER.24H PO SCH ×2 (09:35→21:01)
[2018-02-21] MEDS: LOSARTAN 50 MG TAB PO SCH (09:35)
[2018-02-21] MEDS: FUROSEMIDE 10 MG/ML 4 ML VIAL IV SCH ×2 (09:36→21:02)
[2018-02-21] MEDS: ENOXAPARIN 40 MG/0.4 ML SYRINGE SQ SCH (09:36)
[2018-02-21] MEDS: NYSTATIN 100,000 UNIT/GM POWD 15 GM TOPICAL SCH (09:37)
--- NOTE | 2018-02-21 11:57 | P.CRDCN ---
History of Present Illness Consult date: 02/21/18 Requesting physician: Hector Felipe Consult reason: congestive heart failure Chief complaint: Short of breath History of present illness: This is a 67-year-old female with known history of cardio myopathy, bradycardia, status post biventricular pacemaker, permanent atrial fibrillation , history of intracerebral bleed, presented to the hospital with symptoms of progressively worsening shortness of breath. She did have an echocardiogram with Doppler study performed here which revealed an ejection fraction of 55-60% , moderate mitral regurg and moderate tricuspid regurg noted. Patient also has history of hypertension, hyperlipidemia. Chest x-ray shows congestive heart failure, underlying pneumonia not excluded. EKG shows atrial fibrillation with a moderately rapid ventricular response. White blood cell count 6.8, hemoglobin 12.7, platelet count 146. Sodium 145, potassium 4.8, BUN 24, creatinine 0.8. Magnesium 2.1, BNP 8810, troponin 0.012. Patient was initiated on IV Lasix in the emergency room, she does state today that overall she's feeling better, she's been urinating a significant amount although her weight today is not reflective of this. Past Medical History Past Medical History: Atrial Fibrillation, Heart Failure, CVA/TIA, Eye Disorder , GERD/Reflux, GI Bleed, Hyperlipidemia, Hypertension, Osteoarthritis (OA), Skin Disorder Additional Past Medical History / Comment(s): CVA 09/2016 pt states that it left her with slower speech, cardiopmyopathy, bradycardia, nephrolithiasis-passed stones twice on her own, anemia, lower GI bleed, diverticulosis, benign colon polyps, L eye keratoconus (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 History of Any Multi-Drug Resistant Organisms: None Reported Past Surgical History: Joint Replacement, Pacemaker, Tonsillectomy Additional Past Surgical History / Comment(s): 04/24/13 BiV pacemaker and had gen change in May 2017, cardioversion, cardiac cath in 2012 without intervention, LEFT TOTAL KNEE WITH BONE GRAFT, D&C, colonoscopy. Past Anesthesia/Blood Transfusion Reactions: No Reported Reaction Type of Cardiac Device: Permanent Pacemaker Device Placement Date:: 04/24/2013 placed and gen change in May 2017 Smoking Status: Never smoker - Past Family History Father Additional Family Medical History / Comment(s): BRAIN ANEURYSM Mother Family Medical History: Coronary Artery Disease (CAD), Dementia Additional Family Medical History / Comment(s): FROM "HEART DISEASE " PER PATIENT. Medications and Allergies Home Medications Medication Instructions Recorded Confirmed Type Digoxin [Lanoxin] 125 mcg PO MOWEFR 10/07/16 02/20/18 History Atorvastatin [Lipitor] 40 mg PO HS 05/29/17 02/20/18 History Acetaminophen Tab [Tylenol Tab] 1,000 mg PO BID 02/20/18 02/20/18 History Irbesartan 300 mg PO DAILY 02/20/18 02/20/18 History Metoprolol Succinate (ER) [Toprol 100 mg PO BID 02/20/18 02/20/18 History Xl] Allergies Allergy/AdvReac Type Severity Reaction Status Date / Time aspirin AdvReac Unknown STATES SHE Verified 02/20/18 12:47 WAS TOLD NOT TO TAKE. Iodinated Contrast- Oral and AdvReac Unknown STATES SHE Verified 02/20/18 12:48 IV Dye WAS TOLD TO AVOID NSAIDS (Non-Steroidal AdvReac Unknown STATES SHE Verified 02/20/18 12:47 Anti-Inflamma WAS TOLD TO AVOID Physical Exam Vitals: Vital Signs Temp Pulse Pulse Resp BP BP Pulse Ox 02/21/18 08:00 97.0 F L 76 20 142/95 99 02/21/18 04:00 76 20 02/21/18 03:40 97.5 F L 76 20 142/89 93 L 02/20/18 23:18 80 19 02/20/18 23:15 97.7 F 80 19 138/95 95 02/20/18 23:09 95 02/20/18 20:00 97.6 F 79 20 144/105 93 L 02/20/18 19:38 94 L 02/20/18 14:51 97.3 F L 64 24 166/120 91 L 02/20/18 13:19 90 24 160/93 93 L 02/20/18 11:33 155/88 02/20/18 11:21 98.2 F 96 24 175/121 92 L Intake and Output 02/20/18 02/21/18 02/21/18 22:59 06:59 14:59 Intake Total 522 Output Total 400 Balance 522 -400 Intake: Oral 522 Output: Urine 400 Other: Voiding Method Bedside Commode Bedside Commode # Voids 1 Weight 156.7 kg PHYSICAL EXAMINATION: GENERAL: 67-year-old female in no acute distress at the time of my examination HEENT: Head is atraumatic, normocephalic. Pupils equal, round. Sclera anicteric. Conjunctiva are clear. Mucous membranes of the mouth are moist. Neck is supple. There is no elevated jugular venous pressure. No carotid bruit is heard. HEART EXAMINATION: S1 and S2 irregularly irregular a systolic murmur is heard. CHEST EXAMINATION: Lungs reveal diminished air entry to bilateral bases. ABDOMEN: Soft, nontender. Patient has a significantly large abdominal apron. Bowel sounds are heard. No organomegaly noted. EXTREMITIES: 2+ peripheral pulses with evidence of peripheral edema and no calf tenderness noted. NEUROLOGIC patient is awake, alert and oriented 3 . . Results 02/21/18 06:25 02/21/18 06:25 CBC 02/21/18 Range/Units 06:25 WBC 6.8 (3.8-10.6) k/uL RBC 4.79 (3.80-5.40) m/uL Hgb 12.7 (11.4-16.0) gm/dL Hct 43.3 (34.0-46.0) % Plt Count 146 L (150-450) k/uL Comprehensive Metabolic Panel 02/21/18 Range/Units 06:25 Sodium 145 (137-145) mmol/L Potassium 4.8 (3.5-5.1) mmol/L Chloride 113 H (98-107) mmol/L Carbon Dioxide 23 (22-30) mmol/L BUN 24 H (7-17) mg/dL Creatinine 0.89 (0.52-1.04) mg/dL Glucose 130 H (74-99) mg/dL Calcium 9.0 (8.4-10.2) mg/dL Current Medications Generic Name Dose Route Start Last Admin Trade Name Freq PRN Reason Stop Dose Admin Acetaminophen 1,000 mg 02/20/18 21:00 02/21/18 09:35 Tylenol Tab PO 1,000 mg BID DOC Administration Alprazolam 0.25 mg 02/20/18 23:09 Xanax PO Q6HR PRN Anxiety Atorvastatin Calcium 40 mg 02/20/18 21:00 02/20/18 20:56 Lipitor PO 40 mg HS DOC Administration Calcium Carbonate/Glycine 500 mg 02/20/18 23:09 Tums PO Q4HR PRN Dyspepsia Digoxin 125 mcg 02/20/18 09:00 02/20/18 15:27 Lanoxin PO 125 mcg MOWEFR DOC Administration Enoxaparin Sodium 40 mg 02/21/18 09:00 02/21/18 09:36 Lovenox SQ 40 mg DAILY DOC Administration Furosemide 40 mg 02/20/18 21:00 02/21/18 09:36 Lasix IV 40 mg Q12HR DOC Administration Lactulose 20 gm 02/20/18 23:09 Cephulac PO DAILY PRN Constipation Losartan Potassium 100 mg 02/20/18 15:00 02/21/18 09:35 Cozaar PO 100 mg DAILY DOC Administration Magnesium Hydroxide 2,400 mg 02/20/18 23:09 Milk Of Magnesia PO DAILY PRN Constipation Melatonin 3 mg 02/20/18 23:09 Melatonin PO HS PRN Insomnia Metoprolol Succinate 100 mg 02/20/18 15:00 02/21/18 09:35 Toprol Xl PO 100 mg BID DOC Administration Naloxone HCl 0.2 mg 02/20/18 12:02 Narcan IV Q2M PRN Opioid Reversal Nystatin 1 applic 02/21/18 09:00 02/21/18 09:37 Mycostatin Powder TOPICAL 1 applic BID DOC Administration Ondansetron HCl 4 mg 02/20/18 23:09 Zofran IVP Q8HR PRN Nausea And Vomiting Intake and Output 02/20/18 02/21/18 02/21/18 22:59 06:59 14:59 Intake Total 522 Output Total 400 Balance 522 -400 Intake: Oral 522 Output: Urine 400 Other: Voiding Method Bedside Commode Bedside Commode # Voids 1 Weight 156.7 kg 02/21/18 06:25 02/21/18 06:25 EKG Interpretations (text) EKG shows atrial fibrillation with moderately rapid ventricular response. Assessment and Plan Plan: Assessment and plan #1 diastolic congestive heart failure acute on chronic #2 dilated cardiomyopathy status post bi-V pacemaker #3 chronic persistent atrial fibrillation #4 hypertension #5 diabetes #6 morbid obesity #7 history of cerebral bleed for this reason patient is not on anticoagulation. Plan Echocardiogram with Doppler study was performed which revealed an ejection fraction of 55-60%, moderate mitral regurg and moderate tricuspid regurg. We will continue current dose of IV Lasix, monitoring intake and output along with daily weights and daily lytes BUN and creatinine closely. Continue losartan, Lipitor, and metoprolol. Further recommendations to follow. DNP note has been reviewed, I agree with a documented findings and plan of care. Patient was seen and examined.
[2018-02-21] MEDS: ATORVASTATIN 40 MG TAB PO SCH (21:01)
--- NOTE | 2018-02-21 21:44 | PN ---
PROGRESS NOTE DATE OF SERVICE: 02/21/2018 PRESENTING COMPLAINT: Short of breath. INTERVAL HISTORY: This patient was admitted with CHF exacerbation. The patient has got a pacemaker. Feeling better. Did tolerate some diet. Did use a walker. Contemplating going to the ECF. She does not want to lose her independence from home. Did tolerate a diet. REVIEW OF SYSTEMS: Done for constitutional, cardiovascular, GI, pulmonary; relevant findings as above. CURRENT MEDICATIONS: Reviewed. They include IV Lasix. PHYSICAL EXAMINATION: Temperature 97.2, pulse77, respiration 20, blood pressure 140/90 pulse ox 98% on 4 L. GENERAL APPEARANCE: Sitting up on a chair, awake. EYES: Pupils equal. Conjunctivae normal. NECK: JVD unable to assess. Mass not palpable. RESPIRATORY: Effort increased. LUNGS: Distant breath sounds. CARDIOVASCULAR: Heart sounds irregular. Some edema. ABDOMEN: Distended, soft. Liver and spleen not palpable. PSYCHIATRY: Alert and oriented x3. Mood and affect normal. INVESTIGATIONS: White count 6.8, hemoglobin 12.7, potassium 4.8. BUN 24, creatinine 0.89. ASSESSMENT: 1. Acute on chronic congestive heart failure from preserved left ventricular function/diastolic dysfunction and contribution from atrial fibrillation. 2. Persistent atrial fibrillation. Not a candidate for any anticoagulation due to prior intracerebral bleed. 3. Morbid obesity with body mass index of 64.8. 4. Essential hypertension. 5. Hyperlipidemia. 6. Gastroesophageal reflux disease. 7. Primary osteoarthritis, especially of the knees. 8. Colonic diverticulosis. 9. Left eye keratoconus with blurred vision, left eye. 10.Chronic urinary stress incontinence. 11.Anxiety, depression not otherwise specified. 12.Biventricular pacemaker. 13.Bilateral lower extremity lymphedema. PLAN: Clinically doing better. I spoke to the high risk case manager about possible discharge to the ECF. Will check BNP tomorrow morning. Hopefully can be switched to oral Lasix tomorrow. MMODL / IJN: [id number] /
[2018-02-22 05:08] LABS: Glucose,Whole Blood 65 mg/dL (75-99)
[2018-02-22 05:21] LABS: Glucose,Whole Blood 65 mg/dL (75-99)
[2018-02-22] MEDS: FUROSEMIDE 10 MG/ML 4 ML VIAL IV SCH ×2 (05:36→19:38)
[2018-02-22] MEDS: NYSTATIN 100,000 UNIT/GM POWD 15 GM TOPICAL SCH ×3 (05:37→19:40)
[2018-02-22 05:42] LABS: Glucose,Whole Blood 70 mg/dL (75-99)
[2018-02-22 07:01] LABS: Glucose,Whole Blood 105 mg/dL (75-99)
[2018-02-22 07:59] LABS: Anisocytosis Slight; Basophils % (A) 0 %; Eosinophils # (A) 0.1 k/uL (0-0.7); Eosinophils % (A) 0 %; HCT 47.3 % (34.0-46.0); HGB 13.7 gm/dL (11.4-16.0); Hypochromasia Marked; Lymphocytes # (A) 0.3 k/uL (1.0-4.8); Lymphocytes % (A) 2 %; MCH 27.1 pg (25.0-35.0); MCV 93.5 fL (80.0-100.0); Mean Platelet Volume 8.9; Monocytes # (A) 0.4 k/uL (0-1.0); Monocytes % (A) 3 %; Neutrophils # (A) 15.5 k/uL (1.3-7.7); Neutrophils % (A) 95 %; Platelet Count 148 k/uL (150-450); RBC 5.06 m/uL (3.80-5.40); RDW 16.7 % (11.5-15.5); WBC 16.4 k/uL (3.8-10.6)
[2018-02-22 08:09] LABS: Calcium 9.2 mg/dL (8.4-10.2); Potassium 4.5 mmol/L (3.5-5.1)
[2018-02-22] MEDS: LOSARTAN 50 MG TAB PO SCH (08:21)
[2018-02-22] MEDS: METOPROLOL SUCCINATE (ER) 100 MG TAB.ER.24H PO SCH ×2 (08:21→19:37)
[2018-02-22] MEDS: DIGOXIN 125 MCG TAB PO SCH (08:21)
[2018-02-22] MEDS: ENOXAPARIN 40 MG/0.4 ML SYRINGE SQ SCH (08:21)
[2018-02-22] MEDS: ACETAMINOPHEN TAB 500 MG TAB PO SCH ×2 (08:21→19:37)
--- NOTE | 2018-02-22 14:42 | P.PN ---
Subjective Progress Note Date: 02/22/18 This is a 67-year-old female with known history of cardio myopathy, bradycardia, status post biventricular pacemaker, permanent atrial fibrillation , history of intracerebral bleed, presented to the hospital with symptoms of progressively worsening shortness of breath. She did have an echocardiogram with Doppler study performed here which revealed an ejection fraction of 55-60% , moderate mitral regurg and moderate tricuspid regurg noted. Patient also has history of hypertension, hyperlipidemia. Chest x-ray shows congestive heart failure, underlying pneumonia not excluded. EKG shows atrial fibrillation with a moderately rapid ventricular response. White blood cell count 6.8, hemoglobin 12.7, platelet count 146. Sodium 145, potassium 4.8, BUN 24, creatinine 0.8. Magnesium 2.1, BNP 8810, troponin 0.012. Patient was initiated on IV Lasix in the emergency room, she does state today that overall she's feeling better, she's been urinating a significant amount although her weight today is not reflective of this. 02/22/2018 Patient was seen and examined today, she states she had an episode this morning where she felt extremely chilled and shaky, her blood sugar at that time was in the 60 range. She has been putting out adequate amounts of urine but states that she has not been sleeping consecutively amount of time. Blood pressure 122 /78 with a heart rate in the 90s, 97% on 5 L of oxygen. White blood cell count 16.4, hemoglobin 13.7, platelet count 148. Sodium 148, potassium 4.5, BUN 32, creatinine 1.0. BNP level today 6220. Objective - Vital Signs Vital signs: Vital Signs Temp 97.9 F 02/22/18 11:58 Pulse 95 02/22/18 11:58 Resp 20 02/22/18 11:58 BP 122/79 02/22/18 11:58 Pulse Ox 97 02/22/18 11:58 Intake & Output 02/21/18 02/22/18 02/22/18 18:59 06:59 18:59 Intake Total 300 480 Output Total 300 Balance 0 480 Weight 156.7 kg Intake: Oral 300 480 Output: Urine 300 Other: Voiding Method Bedside Commode # Voids 2 2 2 - Exam PHYSICAL EXAMINATION: GENERAL: 67-year-old female in no acute distress at the time of my examination HEENT: Head is atraumatic, normocephalic. Pupils equal, round. Sclera anicteric. Conjunctiva are clear. Mucous membranes of the mouth are moist. Neck is supple. There is no elevated jugular venous pressure. No carotid bruit is heard. HEART EXAMINATION: S1 and S2 irregularly irregular a systolic murmur is heard. CHEST EXAMINATION: Lungs reveal diminished air entry to bilateral bases. ABDOMEN: Soft, nontender. Patient has a significantly large abdominal apron. Bowel sounds are heard. No organomegaly noted. EXTREMITIES: 2+ peripheral pulses with evidence of peripheral edema and no calf tenderness noted. NEUROLOGIC patient is awake, alert and oriented 3 . - Labs CBC & Chem 7: 02/22/18 06:43 02/22/18 06:43 Labs: Abnormal Lab Results - Last 24 Hours (Table) 02/22/18 02/22/18 02/22/18 Range/Units 05:07 05:20 05:40 WBC (3.8-10.6) k/uL Hct (34.0-46.0) % MCHC (31.0-37.0) g/dL RDW (11.5-15.5) % Plt Count (150-450) k/uL Neutrophils # (1.3-7.7) k/uL Lymphocytes # (1.0-4.8) k/uL Sodium (137-145) mmol/L Chloride (98-107) mmol/L Carbon Dioxide (22-30) mmol/L BUN (7-17) mg/dL POC Glucose (mg/dL) 65 L 65 L 70 L (75-99) mg/dL 02/22/18 02/22/18 02/22/18 Range/Units 06:43 06:43 06:49 WBC 16.4 H (3.8-10.6) k/uL Hct 47.3 H (34.0-46.0) % MCHC 29.0 L (31.0-37.0) g/dL RDW 16.7 H (11.5-15.5) % Plt Count 148 L (150-450) k/uL Neutrophils # 15.5 H (1.3-7.7) k/uL Lymphocytes # 0.3 L (1.0-4.8) k/uL Sodium 148 H (137-145) mmol/L Chloride 112 H (98-107) mmol/L Carbon Dioxide 21 L (22-30) mmol/L BUN 32 H (7-17) mg/dL POC Glucose (mg/dL) 105 H (75-99) mg/dL Microbiology - Last 24 Hours (Table) 02/20/18 09:35 Blood Culture - Preliminary Blood No Growth after 48 hours Assessment and Plan Plan: Assessment and plan #1 diastolic congestive heart failure acute on chronic #2 dilated cardiomyopathy status post bi-V pacemaker #3 chronic persistent atrial fibrillation #4 hypertension #5 diabetes #6 morbid obesity #7 history of cerebral bleed for this reason patient is not on anticoagulation. Plan Echocardiogram with Doppler study was performed which revealed an ejection fraction of 55-60%, moderate mitral regurg and moderate tricuspid regurg. We will continue current dose of IV Lasix, monitoring intake and output along with daily weights and daily lytes BUN and creatinine closely. Continue losartan, Lipitor, and metoprolol. Further recommendations to follow. DNP note has been reviewed, I agree with a documented findings and plan of care. Patient was seen and examined.
[2018-02-22 14:58] VITALS: BMI 69.7
[2018-02-22] MEDS: ATORVASTATIN 40 MG TAB PO SCH (19:37)
--- NOTE | 2018-02-23 01:11 | PN ---
PROGRESS NOTE DATE OF SERVICE: 02/22/2018. PRESENTING COMPLAINT: Chills. INTERVAL HISTORY: This patient presented with CHF exacerbation. Was on IV Lasix. Breathing is much improved. Overall feeling better this morning. An episode the patient was feeling chills but no fevers were noted. No urinary symptoms. The patient otherwise is tolerating a diet. 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 REVIEW OF SYSTEMS: Done for constitutional, cardiovascular, GI, pulmonary and relevant findings as above. CURRENT MEDICATIONS: Reviewed. PHYSICAL EXAMINATION: VITAL SIGNS: Temperature 97.9, pulse 96, respiration 20, blood pressure 100/58, pulse ox 99% on 5 L. GENERAL APPEARANCE: Lying in bed, tired. EYES: Pupils equal. Conjunctivae normal. NECK: JVD unable to assess. Mass not palpable. RESPIRATORY: Effort increased. LUNGS: Decreased distant breath sounds. CARDIOVASCULAR: Heart sounds irregular. Some edema. ABDOMEN: Distended, soft. Liver and spleen not palpable. PSYCHIATRY: Alert and oriented x3. Mood and affect tired-appearing. INVESTIGATIONS: White count 16.4, hemoglobin 13.7, platelets 148, potassium 4.5, sodium 148, BUN 32, creatinine 1.04. ASSESSMENT: 1. Acute on chronic congestive heart failure from preserved LV function/diastolic dysfunction contribution from atrial fibrillation. 2. Persistent atrial fibrillation not a candidate for any anticoagulation due to prior intracerebral bleed. 3. Morbid obesity BMI was 64.8. 4. Essential hypertension. 5. Hyperlipidemia. 6. Gastroesophageal reflux disease. 7. Primary osteoarthritis especially of the knees. 8. Colonic diverticulosis. 9. Left eye greater course with blurred vision. 10.Chronic urinary stress incontinence. 11.Anxiety and depression, not otherwise specified. 12.Biventricular pacemaker. 13.Bilateral lower extremity lymphedema. 14.Episodes of hypoglycemia may contribute to some symptoms. PLAN: Overall she is doing better. Increase the patient's oral intake to prevent hypoglycemia. Await to see if the patient qualifies to go to the [facility]. The patient probably on the hypovolemic side and the patient's Lasix will be discontinued p.o. Patient looking to go to [facility], that will likely happen on Sunday. MMODL / IJN: [id number] /
[2018-02-23 07:26] LABS: Anisocytosis Slight; Basophils % (A) 0 %; Eosinophils % (A) 0 %; HCT 42.9 % (34.0-46.0); Hypochromasia Marked; Lymphocytes # (A) 0.4 k/uL (1.0-4.8); Lymphocytes % (A) 3 %; MCH 27.2 pg (25.0-35.0); MCHC 30.2 g/dL (31.0-37.0); MCV 89.8 fL (80.0-100.0); Mean Platelet Volume 9.9; Monocytes # (A) 0.4 k/uL (0-1.0); Monocytes % (A) 3 %; Neutrophils # (A) 11.3 k/uL (1.3-7.7); Neutrophils % (A) 93 %; Platelet Count 124 k/uL (150-450); RBC 4.77 m/uL (3.80-5.40); RDW 16.8 % (11.5-15.5); WBC 12.2 k/uL (3.8-10.6)
[2018-02-23 07:45] LABS: Calcium 8.7 mg/dL (8.4-10.2); Potassium 4.2 mmol/L (3.5-5.1)
[2018-02-23] MEDS: LOSARTAN 50 MG TAB PO SCH (10:52)
[2018-02-23] MEDS: ACETAMINOPHEN TAB 500 MG TAB PO SCH ×2 (10:53→20:26)
[2018-02-23] MEDS: ENOXAPARIN 40 MG/0.4 ML SYRINGE SQ SCH (10:54)
[2018-02-23] MEDS: FUROSEMIDE 40 MG TAB PO SCH (10:54)
[2018-02-23] MEDS: METOPROLOL SUCCINATE (ER) 100 MG TAB.ER.24H PO SCH ×2 (10:54→20:26)
[2018-02-23] MEDS: NYSTATIN 100,000 UNIT/GM POWD 15 GM TOPICAL SCH ×2 (10:54→20:21)
--- NOTE | 2018-02-23 11:20 | P.PN ---
Subjective Progress Note Date: 02/23/18 This is a 67-year-old female with known history of cardio myopathy, bradycardia, status post biventricular pacemaker, permanent atrial fibrillation , history of intracerebral bleed, presented to the hospital with symptoms of progressively worsening shortness of breath. She did have an echocardiogram with Doppler study performed here which revealed an ejection fraction of 55-60% , moderate mitral regurg and moderate tricuspid regurg noted. Patient also has history of hypertension, hyperlipidemia. Chest x-ray shows congestive heart failure, underlying pneumonia not excluded. EKG shows atrial fibrillation with a moderately rapid ventricular response. White blood cell count 6.8, hemoglobin 12.7, platelet count 146. Sodium 145, potassium 4.8, BUN 24, creatinine 0.8. Magnesium 2.1, BNP 8810, troponin 0.012. Patient was initiated on IV Lasix in the emergency room, she does state today that overall she's feeling better, she's been urinating a significant amount although her weight today is not reflective of this. 02/22/2018 Patient was seen and examined today, she states she had an episode this morning where she felt extremely chilled and shaky, her blood sugar at that time was in the 60 range. She has been putting out adequate amounts of urine but states that she has not been sleeping consecutively amount of time. Blood pressure 122 /78 with a heart rate in the 90s, 97% on 5 L of oxygen. White blood cell count 16.4, hemoglobin 13.7, platelet count 148. Sodium 148, potassium 4.5, BUN 32, creatinine 1.0. BNP level today 6220. 02/23: Patient has been seen and examined today. She states she is feeling better but still has some shortness of breath. Pulse ox is 97% on 4 L, afebrile , heart rate is running in the 70s to 90s. Blood pressure 110/70. White count is 12.2, hemoglobin 13.0, creatinine 1.01. We will plan to increase Lasix to 40 mg IV every 12 hours for today and start oral Lasix tomorrow at 40 mg morning 20 mg in the evening. Patient states her discharge plan is for [facility]. Objective - Vital Signs Vital signs: Vital Signs Temp 97.2 F L 02/23/18 04:00 Pulse 93 02/23/18 08:00 Resp 20 02/23/18 08:00 BP 110/70 02/23/18 08:00 Pulse Ox 97 02/23/18 09:18 Intake & Output 02/22/18 02/23/18 02/23/18 18:59 06:59 18:59 Intake Total 720 300 Output Total 1200 Balance 720 -900 Weight 156.7 kg 155.8 kg Intake: Oral 720 300 Output: Urine 1200 Other: Voiding Method Bedside Commode # Voids 4 2 - Exam PHYSICAL EXAMINATION: GENERAL: 67-year-old female in no acute distress at the time of my examination HEENT: Head is atraumatic, normocephalic. Pupils equal, round. Sclera anicteric. Conjunctiva are clear. Mucous membranes of the mouth are moist. Neck is supple. There is no elevated jugular venous pressure. No carotid bruit is heard. HEART EXAMINATION: S1 and S2 irregularly irregular a systolic murmur is heard. CHEST EXAMINATION: Lungs reveal diminished air entry to bilateral bases. ABDOMEN: Soft, nontender. Patient has a significantly large abdominal apron. Bowel sounds are heard. No organomegaly noted. EXTREMITIES: 2+ peripheral pulses with 1+ evidence of peripheral edema and no calf tenderness noted. NEUROLOGIC patient is awake, alert and oriented 3 . - Labs CBC & Chem 7: 02/23/18 06:41 02/23/18 06:41 Labs: Abnormal Lab Results - Last 24 Hours (Table) 02/23/18 02/23/18 Range/Units 06:41 06:41 WBC 12.2 H (3.8-10.6) k/uL MCHC 30.2 L (31.0-37.0) g/dL RDW 16.8 H (11.5-15.5) % Plt Count 124 L (150-450) k/uL Neutrophils # 11.3 H (1.3-7.7) k/uL Lymphocytes # 0.4 L (1.0-4.8) k/uL Chloride 109 H (98-107) mmol/L BUN 34 H (7-17) mg/dL Microbiology - Last 24 Hours (Table) 02/20/18 09:35 Blood Culture - Preliminary Blood No Growth after 48 hours Assessment and Plan Plan: #1 diastolic congestive heart failure acute on chronic #2 dilated cardiomyopathy status post bi-V pacemaker #3 chronic persistent atrial fibrillation #4 hypertension #5 diabetes #6 morbid obesity #7 history of cerebral bleed for this reason patient is not on anticoagulation. Plan Echocardiogram with Doppler study was performed which revealed an ejection fraction of 55-60%, moderate mitral regurg and moderate tricuspid regurg. Lasix will be changed to IV for 2 doses of 40 mg today and return to oral tomorrow at 40 and the morning and 20 in the afternoon. Continue monitoring intake and output along with daily weights and daily lytes BUN and creatinine closely. Continue losartan, Lipitor, and metoprolol. Further recommendations to follow. Nurse practitioner note has been reviewed, I agree with document of findings and plan of care. Patient has been seen and examined.
[2018-02-23] MEDS: FUROSEMIDE 10 MG/ML 4 ML VIAL IV SCH ×2 (13:46→20:27)
--- NOTE | 2018-02-23 15:05 | P.PN ---
Subjective Progress Note Date: 02/23/18 Principal diagnosis: Ms. Sheppard is a 67-year-old female with a past medical history of morbid obesity , congestive heart failure, atrial fibrillation, hypertension admitted to the hospital with a chief complaint of difficulty in breathing and lower extremity edema. She is currently being treated for CHF exacerbation still on IV Lasix. This morning patient is sitting by a chair besides the appears to be no acute distress. Patient mentions that her breathing is much better compared to yesterday. On review of systems- Constitutional- Patient denies having any fevers chills or rigors. Cardiovascular- no palpitations or chest pain Respiratory-difficulty in breathing is improved. No cough. GI- no abdominal pain nausea vomiting or diarrhea. -no dysuria or hematuria Active Medications Acetaminophen (Tylenol Tab) 1,000 mg PO BID [facility] Last Admin: 02/23/18 10:53 Dose: 1,000 mg Alprazolam (Xanax) 0.25 mg PO Q6HR PRN PRN Reason: Anxiety Atorvastatin Calcium (Lipitor) 40 mg PO HS [facility] Last Admin: 02/22/18 19:37 Dose: 40 mg Calcium Carbonate/Glycine (Tums) 500 mg PO Q4HR PRN PRN Reason: Dyspepsia Digoxin (Lanoxin) 125 mcg PO MOWEFR [facility] Last Admin: 02/22/18 08:21 Dose: 125 mcg Enoxaparin Sodium (Lovenox) 40 mg SQ DAILY [facility] Last Admin: 02/23/18 10:54 Dose: 40 mg Furosemide (Lasix) 40 mg PO DAILY [facility] Last Admin: 02/23/18 10:54 Dose: 40 mg Furosemide (Lasix) 40 mg IV Q12HR [facility] Stop: 02/23/18 21:01 Last Admin: 02/23/18 13:46 Dose: 40 mg Furosemide (Lasix) 20 mg PO 1600 [facility] Lactulose (Cephulac) 20 gm PO DAILY PRN PRN Reason: Constipation Losartan Potassium (Cozaar) 100 mg PO DAILY [facility] Last Admin: 02/23/18 10:52 Dose: 100 mg Magnesium Hydroxide (Milk Of Magnesia) 2,400 mg PO DAILY PRN PRN Reason: Constipation Melatonin (Melatonin) 3 mg PO HS PRN PRN Reason: Insomnia Metoprolol Succinate (Toprol Xl) 100 mg PO BID [facility] Last Admin: 12/08/18 10:54 Dose: 100 mg Naloxone HCl (Narcan) 0.2 mg IV Q2M PRN PRN Reason: Opioid Reversal Nystatin (Mycostatin Powder) 1 applic TOPICAL BID [facility] Last Admin: 02/23/18 10:54 Dose: Not Given Ondansetron HCl (Zofran) 4 mg IVP Q8HR PRN PRN Reason: Nausea And Vomiting Objective - Vital Signs Vital signs: Vital Signs Temp 97.2 F L 02/23/18 04:00 Pulse 85 02/23/18 12:00 Resp 19 02/23/18 12:00 BP 125/65 02/23/18 12:00 Pulse Ox 97 02/23/18 12:00 Intake & Output 02/22/18 02/23/18 02/23/18 18:59 06:59 18:59 Intake Total 720 300 118 Output Total 1200 Balance 720 -900 118 Weight 156.7 kg 155.8 kg Intake: Oral 720 300 118 Output: Urine 1200 Other: Voiding Method Bedside Commode # Voids 4 2 - Exam GENERAL EXAM GEN. APPEARANCE: alert, in no apparent distress: Morbidly obese. HEAD EXAM: atraumatic, normocephalic, normal inspection EYE EXAM: normal appearance, PERRL, EOMI. Absent: scleral icterus, conjunctival injection, periorbital swelling ENT EXAM: normal exam, mucous membranes moist NECK EXAM: normal inspection. Absent: tenderness, meningismus, full ROM, lymphadenopathy RESPIRATORY EXAM: Distant breath sounds bilaterally. No wheezes. Mild basal crackles. CARDIOVASCULAR EXAM: Irregularly irregular GI/ABDOMINAL EXAM: Soft, nontender. Huge body habitus. EXTREMITIES EXAM: Mild pitting edema bilaterally. NEUROLOGICAL EXAM: alert, oriented X3, no focal neurological deficits. PSYCHIATRIC EXAM: normal affect, normal mood - Labs CBC & Chem 7: 02/23/18 06:41 02/23/18 06:41 Labs: Abnormal Lab Results - Last 24 Hours (Table) 02/23/18 02/23/18 Range/Units 06:41 06:41 WBC 12.2 H (3.8-10.6) k/uL MCHC 30.2 L (31.0-37.0) g/dL RDW 16.8 H (11.5-15.5) % Plt Count 124 L (150-450) k/uL Neutrophils # 11.3 H (1.3-7.7) k/uL Lymphocytes # 0.4 L (1.0-4.8) k/uL Chloride 109 H (98-107) mmol/L BUN 34 H (7-17) mg/dL Microbiology - Last 24 Hours (Table) 02/20/18 09:35 Blood Culture - Preliminary Blood No Growth after 72 hours Assessment and Plan Assessment: ASSESSMENT Acute on chronic congestive heart failure with preserved LV function Diastolic dysfunction Persistent atrial fibrillation Essential hypertension Morbid obesity with BMI of 64.8 Hyperlipidemia GERD Primary osteoarthritis of bilateral knees Colonic diverticulosis Chronic urinary stress incontinence Anxiety with depression Biventricular pacemaker Bilateral lower extremity lymphedema Plan; patient is still getting IV Lasix for CHF exacerbation that will be continued. Overall patient's respiratory status has improved. Cardiology on board following the patient. We'll continue with the current medication regimen. Overall prognosis is guarded. Further recommendations to follow depending on the progress of the patient.
[2018-02-23] MEDS: FUROSEMIDE 20 MG TAB PO SCH (15:37)
[2018-02-23] MEDS: ATORVASTATIN 40 MG TAB PO SCH (20:26)
[2018-02-23] MEDS: ALPRAZolam 0.25 MG TAB PO PRN (23:20)
[2018-02-24 06:58] LABS: Calcium 8.3 mg/dL (8.4-10.2); Potassium 3.9 mmol/L (3.5-5.1)
[2018-02-24] MEDS: LOSARTAN 50 MG TAB PO SCH (09:49)
[2018-02-24] MEDS: METOPROLOL SUCCINATE (ER) 100 MG TAB.ER.24H PO SCH ×3 (09:49→20:52)
[2018-02-24] MEDS: ENOXAPARIN 40 MG/0.4 ML SYRINGE SQ SCH (09:49)
[2018-02-24] MEDS: FUROSEMIDE 40 MG TAB PO SCH (09:49)
[2018-02-24] MEDS: NYSTATIN 100,000 UNIT/GM POWD 15 GM TOPICAL SCH ×2 (09:50→20:58)
[2018-02-24] MEDS: ACETAMINOPHEN TAB 500 MG TAB PO SCH ×2 (09:50→20:52)
--- NOTE | 2018-02-24 13:58 | P.PN ---
Subjective Progress Note Date: 02/24/18 Principal diagnosis: CHF exacerbation Ms. Sheppard is a 67-year-old female with a past medical history of morbid obesity , congestive heart failure, atrial fibrillation, hypertension admitted to the hospital with a chief complaint of difficulty in breathing and lower extremity edema. She is currently being treated for CHF exacerbation still on IV Lasix. This morning patient is sitting by a chair besides, having her lunch. She has family members at the bedside. Patient mentions that her breathing is much better compared to yesterday. On review of systems- Constitutional- Patient denies having any fevers chills or rigors. Cardiovascular- no palpitations or chest pain Respiratory-difficulty in breathing is improving. No cough. GI- no abdominal pain nausea vomiting or diarrhea. -no dysuria or hematuria Active Medications Acetaminophen (Tylenol Tab) 1,000 mg PO BID [facility] Last Admin: 02/24/18 09:50 Dose: 1,000 mg Alprazolam (Xanax) 0.25 mg PO Q6HR PRN PRN Reason: Anxiety Last Admin: 02/23/18 23:20 Dose: 0.25 mg Atorvastatin Calcium (Lipitor) 40 mg PO HS [facility] Last Admin: 02/23/18 20:26 Dose: 40 mg Calcium Carbonate/Glycine (Tums) 500 mg PO Q4HR PRN PRN Reason: Dyspepsia Digoxin (Lanoxin) 125 mcg PO MOWEFR [facility] Last Admin: 02/22/18 08:21 Dose: 125 mcg Enoxaparin Sodium (Lovenox) 40 mg SQ DAILY [facility] Last Admin: 02/24/18 09:49 Dose: 40 mg Furosemide (Lasix) 40 mg PO DAILY [facility] Last Admin: 02/24/18 09:49 Dose: 40 mg Furosemide (Lasix) 20 mg PO 1600 [facility] Last Admin: 02/23/18 15:37 Dose: Not Given Lactulose (Cephulac) 20 gm PO DAILY PRN PRN Reason: Constipation Losartan Potassium (Cozaar) 100 mg PO DAILY [facility] Last Admin: 02/24/18 09:49 Dose: 100 mg Magnesium Hydroxide (Milk Of Magnesia) 2,400 mg PO DAILY PRN PRN Reason: Constipation Melatonin (Melatonin) 3 mg PO HS PRN PRN Reason: Insomnia Metoprolol Succinate (Toprol Xl) 100 mg PO TID [facility] Naloxone HCl (Narcan) 0.2 mg IV Q2M PRN PRN Reason: Opioid Reversal Nystatin (Mycostatin Powder) 1 applic TOPICAL BID [facility] Last Admin: 02/24/18 09:50 Dose: Not Given Ondansetron HCl (Zofran) 4 mg IVP Q8HR PRN PRN Reason: Nausea And Vomiting Objective - Vital Signs Vital signs: Vital Signs Temp 97 F L 02/24/18 03:06 Pulse 81 02/24/18 12:00 Resp 16 02/24/18 12:00 BP 99/50 02/24/18 12:00 Pulse Ox 99 02/24/18 12:00 Intake & Output 02/23/18 02/24/18 02/24/18 18:59 06:59 18:59 Intake Total 478 24 240 Output Total 700 300 Balance -222 -276 240 Weight 155.2 kg Intake: IV 24 0.9 20 furosemide 4 Oral 478 240 Output: Urine 700 300 Other: Voiding Method Bedside Commode Bedside Commode Diaper Diaper Incontinent Incontinent # Voids 3 - Exam GEN. APPEARANCE: alert, in no apparent distress: Morbidly obese. HEAD EXAM: atraumatic, normocephalic, normal inspection EYE EXAM: normal appearance, PERRL, EOMI. Absent: scleral icterus, conjunctival injection, periorbital swelling ENT EXAM: normal exam, mucous membranes moist NECK EXAM: normal inspection. Absent: tenderness, meningismus, full ROM, lymphadenopathy RESPIRATORY EXAM: Distant breath sounds bilaterally. No wheezes. Mild basal crackles. CARDIOVASCULAR EXAM: Irregularly irregular GI/ABDOMINAL EXAM: Soft, nontender. Huge body habitus. EXTREMITIES EXAM: Mild pitting edema bilaterally. NEUROLOGICAL EXAM: alert, oriented X3, no focal neurological deficits. PSYCHIATRIC EXAM: normal affect, normal mood - Labs CBC & Chem 7: 02/23/18 06:41 02/24/18 06:09 Labs: Abnormal Lab Results - Last 24 Hours (Table) 02/24/18 Range/Units 06:09 Chloride 111 H (98-107) mmol/L BUN 34 H (7-17) mg/dL Calcium 8.3 L (8.4-10.2) mg/dL Microbiology - Last 24 Hours (Table) 02/20/18 09:35 Blood Culture - Preliminary Blood No Growth after 96 hours Assessment and Plan Assessment: ASSESSMENT Acute on chronic congestive heart failure with preserved LV function Diastolic dysfunction Persistent atrial fibrillation Essential hypertension Morbid obesity with BMI of 64.8 Hyperlipidemia GERD Primary osteoarthritis of bilateral knees Colonic diverticulosis Chronic urinary stress incontinence Anxiety with depression Biventricular pacemaker Bilateral lower extremity lymphedema Plan; patient's IV Lasix has been changed to by mouth. She is getting 40 mg in the morning and 20 mg at night. Overall patient's respiratory status has improved. Cardiology on board following the patient. We'll continue with the current medication regimen. Overall prognosis is guarded. Further recommendations to follow depending on the progress of the patient.Anticipate discharge to [facility] tomorrow. Patient states that she is still concerned about going to a rehab place because she has not been there before, Will have social insurance analyst discuss with her about the discharge tomorrow.
--- NOTE | 2018-02-24 16:02 | PN ---
PROGRESS NOTE This is a 67-year-old obese lady with nonischemic cardiomyopathy, atrial fibrillation and a Bi-V ICD. She is feeling better. Breathing easier but tachycardic still. I will increase the Lopressor to 100 mg t.i.d. S1-S2 heard normally with slight tachycardia, irregular rhythm. Lungs reveal diminished air entry over both bases. Abdomen exam unchanged. Plan is to continue current medical regimen and increase Lopressor for optimizing rate control to 100 mg t.i.d. and see how she does. MMODL / IJN: [id number] /
[2018-02-24] MEDS: FUROSEMIDE 20 MG TAB PO SCH (17:24)
[2018-02-24] MEDS: ATORVASTATIN 40 MG TAB PO SCH (20:52)
[2018-02-25] MEDS: ALPRAZolam 0.25 MG TAB PO PRN (04:44)
[2018-02-25 07:37] LABS: Calcium 8.5 mg/dL (8.4-10.2); Potassium 3.8 mmol/L (3.5-5.1)
[2018-02-25] MEDS: LOSARTAN 50 MG TAB PO SCH (08:39)
[2018-02-25] MEDS: ACETAMINOPHEN TAB 500 MG TAB PO SCH ×2 (08:39→21:42)
[2018-02-25] MEDS: METOPROLOL SUCCINATE (ER) 100 MG TAB.ER.24H PO SCH ×3 (08:39→21:41)
[2018-02-25] MEDS: DIGOXIN 125 MCG TAB PO SCH (08:39)
[2018-02-25] MEDS: FUROSEMIDE 40 MG TAB PO SCH (08:39)
[2018-02-25] MEDS: ENOXAPARIN 40 MG/0.4 ML SYRINGE SQ SCH (08:40)
[2018-02-25] MEDS: NYSTATIN 100,000 UNIT/GM POWD 15 GM TOPICAL SCH ×2 (08:49→21:43)
[2018-02-25] MEDS: FUROSEMIDE 20 MG TAB PO SCH (16:36)
--- NOTE | 2018-02-25 17:17 | P.PN ---
Subjective Progress Note Date: 02/25/18 Principal diagnosis: CHF exacerbation Ms. Sheppard is a 67-year-old female with a past medical history of morbid obesity , congestive heart failure, atrial fibrillation, hypertension admitted to the hospital with a chief complaint of difficulty in breathing and lower extremity edema. She is currently being treated for CHF exacerbation still on IV Lasix. The patient has been [facility]. She is sitting up in a chair by the bedside and appears to be no acute distress. Patient states that she has been thinking of going to a prison and she is okay with it. On review of systems- Constitutional- Patient denies having any fevers chills or rigors. Cardiovascular- no palpitations or chest pain Respiratory-difficulty in breathing is improving. No cough. GI- no abdominal pain nausea vomiting or diarrhea. -no dysuria or hematuria Active Medications Acetaminophen (Tylenol Tab) 1,000 mg PO BID [facility] Last Admin: 02/25/18 08:39 Dose: 1,000 mg Alprazolam (Xanax) 0.25 mg PO Q6HR PRN PRN Reason: Anxiety Last Admin: 02/25/18 04:44 Dose: 0.25 mg Atorvastatin Calcium (Lipitor) 40 mg PO HS [facility] Last Admin: 02/24/18 20:52 Dose: 40 mg Calcium Carbonate/Glycine (Tums) 500 mg PO Q4HR PRN PRN Reason: Dyspepsia Digoxin (Lanoxin) 125 mcg PO MOWEFR [facility] Last Admin: 02/25/18 08:39 Dose: 125 mcg Enoxaparin Sodium (Lovenox) 40 mg SQ DAILY [facility] Last Admin: 02/25/18 08:40 Dose: 40 mg Furosemide (Lasix) 40 mg PO DAILY [facility] Last Admin: 02/25/18 08:39 Dose: 40 mg Furosemide (Lasix) 20 mg PO 1600 [facility] Last Admin: 02/25/18 16:36 Dose: 20 mg Lactulose (Cephulac) 20 gm PO DAILY PRN PRN Reason: Constipation Losartan Potassium (Cozaar) 100 mg PO DAILY [facility] Last Admin: 02/25/18 08:39 Dose: 100 mg Magnesium Hydroxide (Milk Of Magnesia) 2,400 mg PO DAILY PRN PRN Reason: Constipation Melatonin (Melatonin) 3 mg PO HS PRN PRN Reason: Insomnia Metoprolol Succinate (Toprol Xl) 100 mg PO TID [facility] Last Admin: 02/25/18 16:36 Dose: 100 mg Naloxone HCl (Narcan) 0.2 mg IV Q2M PRN PRN Reason: Opioid Reversal Nystatin (Mycostatin Powder) 1 applic TOPICAL BID [facility] Last Admin: 02/25/18 08:49 Dose: 1 applic Ondansetron HCl (Zofran) 4 mg IVP Q8HR PRN PRN Reason: Nausea And Vomiting Objective - Vital Signs Vital signs: Vital Signs Temp 98 F 02/25/18 08:00 Pulse 83 02/25/18 16:10 Resp 16 02/25/18 08:00 BP 108/66 02/25/18 16:10 Pulse Ox 93 L 02/25/18 08:00 Intake & Output 02/24/18 02/25/18 02/25/18 18:59 06:59 18:59 Intake Total 240 605 240 Output Total 700 Balance 240 -95 240 Weight 154.8 kg Intake: IV 0 0.9 0 furosemide 0 Oral 240 605 240 Output: Urine 700 Other: Voiding Method Bedside Commode Bedside Commode Bedside Commode Diaper Diaper Diaper Incontinent Incontinent Incontinent # Voids 2 - Exam GEN. APPEARANCE: alert, in no apparent distress: Morbidly obese. Sitting up in a chair by the bedside HEAD EXAM: atraumatic, normocephalic, normal inspection EYE EXAM : no pallor. No icterus. ENT EXAM: normal exam, mucous membranes moist NECK EXAM: No JVD. No thyromegaly. RESPIRATORY EXAM: Distant breath sounds bilaterally. No wheezes. Mild basal crackles. CARDIOVASCULAR EXAM: Irregularly irregular GI/ABDOMINAL EXAM: Soft, nontender. Huge body habitus. EXTREMITIES EXAM: Mild pitting edema bilaterally. NEUROLOGICAL EXAM: alert, oriented X3, no focal neurological deficits. PSYCHIATRIC EXAM: normal affect, normal mood - Labs CBC & Chem 7: 02/23/18 06:41 02/25/18 06:34 Labs: Abnormal Lab Results - Last 24 Hours (Table) 02/25/18 Range/Units 06:34 BUN 31 H (7-17) mg/dL Microbiology - Last 24 Hours (Table) 02/20/18 09:35 Blood Culture - Preliminary Blood No Growth after 120 hours Assessment and Plan Assessment: ASSESSMENT Acute on chronic congestive heart failure with preserved LV function Diastolic dysfunction Persistent atrial fibrillation Essential hypertension Morbid obesity with BMI of 64.8 Hyperlipidemia GERD Primary osteoarthritis of bilateral knees Colonic diverticulosis Chronic urinary stress incontinence Anxiety with depression Biventricular pacemaker Bilateral lower extremity lymphedema Plan; patient's IV Lasix has been changed to by mouth. She is getting 40 mg in the morning and 20 mg at night. Overall patient's respiratory status has improved. We'll continue with the current medication regimen. Overall prognosis is guarded. Patient has been cleared by cardiology. 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 Anticipate discharge in the next 24 hours.
[2018-02-25] MEDS: ATORVASTATIN 40 MG TAB PO SCH (21:41)
[2018-02-26 06:37] VITALS: TEMP 97.4
[2018-02-26] MEDS: LOSARTAN 50 MG TAB PO SCH (07:36)
[2018-02-26] MEDS: ENOXAPARIN 40 MG/0.4 ML SYRINGE SQ SCH (07:37)
[2018-02-26] MEDS: ACETAMINOPHEN TAB 500 MG TAB PO SCH (07:37)
[2018-02-26] MEDS: FUROSEMIDE 40 MG TAB PO SCH (07:37)
[2018-02-26] MEDS: METOPROLOL SUCCINATE (ER) 100 MG TAB.ER.24H PO SCH ×2 (07:38→15:25)
[2018-02-26] MEDS: NYSTATIN 100,000 UNIT/GM POWD 15 GM TOPICAL SCH (08:38)
[2018-02-26 09:53] LABS: Anion Gap 8 mmol/L; Blood Urea Nitrogen 27 mg/dL (7-17); Calcium 8.9 mg/dL (8.4-10.2); Carbon Dioxide 29 mmol/L (22-30); Chloride 108 mmol/L (98-107); Glucose 91 mg/dL (74-99); Potassium 4.2 mmol/L (3.5-5.1); Sodium 145 mmol/L (137-145)
[2018-02-26 09:55] LABS: Anisocytosis Slight; Basophils % (A) 0 %; Eosinophils # (A) 0.2 k/uL (0-0.7); Eosinophils % (A) 4 %; HCT 41.2 % (34.0-46.0); HGB 12.8 gm/dL (11.4-16.0); Hypochromasia Moderate; Lymphocytes # (A) 0.5 k/uL (1.0-4.8); Lymphocytes % (A) 9 %; MCHC 31.1 g/dL (31.0-37.0); MCV 86.7 fL (80.0-100.0); Monocytes # (A) 0.5 k/uL (0-1.0); Monocytes % (A) 9 %; Neutrophils # (A) 4.1 k/uL (1.3-7.7); Neutrophils % (A) 76 %; Platelet Count 134 k/uL (150-450); RBC 4.75 m/uL (3.80-5.40); RDW 16.4 % (11.5-15.5); WBC 5.4 k/uL (3.8-10.6)
[2018-02-26 12:03] VITALS: BP 142/83; RESP 17
[2018-02-26 12:56] VITALS: PULSE 85
[2018-02-26] MEDS: FUROSEMIDE 20 MG TAB PO SCH (15:25)
== END 2018-02-26 17:30 | DRG 292 ==
LOC: EC 09:17 → 3SCARD 12:02 → 3NMEDONC 02-25 12:00
PROVIDERS: ADMIT Hospitalist; ATTEND Hospitalist
DX: I11.0 Hypertensive heart disease with heart failure (principal); I48.1 Persistent atrial fibrillation; Z68.44 Body mass index [BMI] 60.0-69.9, adult; I50.33 Acute on chronic diastolic (congestive) heart failure; E11.649 Type 2 diabetes mellitus with hypoglycemia without coma; E66.01 Morbid (severe) obesity due to excess calories; L52 Erythema nodosum; I08.1 Rheumatic disorders of both mitral and tricuspid valves; E86.1 Hypovolemia; I42.0 Dilated cardiomyopathy; Z23 Encounter for immunization; E78.5 Hyperlipidemia, unspecified; I89.0 Lymphedema, not elsewhere classified; H18.602 Keratoconus, unspecified, left eye; M17.11 Unilateral primary osteoarthritis, right knee; G89.29 Other chronic pain; K59.00 Constipation, unspecified; G47.00 Insomnia, unspecified; K57.30 Diverticulosis of large intestine without perforation or abscess without bleeding; N39.3 Stress incontinence (female) (male); F41.9 Anxiety disorder, unspecified; F32.9 Major depressive disorder, single episode, unspecified; F43.10 Post-traumatic stress disorder, unspecified; K21.9 Gastro-esophageal reflux disease without esophagitis; M54.41 Lumbago with sciatica, right side; Z79.899 Other long term (current) drug therapy; Z86.73 Personal history of transient ischemic attack (TIA), and cerebral infarction without residual deficits; Z95.0 Presence of cardiac pacemaker; Z87.442 Personal history of urinary calculi; Z96.652 Presence of left artificial knee joint; Z86.2 Personal history of diseases of the blood and blood-forming organs and certain disorders involving the immune mechanism; Z86.010 Personal history of colon polyps; Z88.8 Allergy status to other drugs, medicaments and biological substances; Z91.041 Radiographic dye allergy status; Z82.49 Family history of ischemic heart disease and other diseases of the circulatory system; Z81.8 Family history of other mental and behavioral disorders
CPT/HCPCS: 36415; 71046; 80048; 80053; 82550; 82553; 83605; 83735; 83880; 84484; 85025; 85610; 85730; 87040; 93005; 93306; 94640; 94760; 96374; 99291

== ENCOUNTER 2018-07-25 22:55 | Observation (INO) | payer MEDICARE, BC ==
[2018-07-25] MEDS ORDERED: SODIUM CHLORIDE 0.9% 1,000 ML IV STA (23:16)
[2018-07-25] MEDS ORDERED: IPRATROPIUM-ALBUTEROL 3 ML NEB INHALATION STA (23:19)
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
[2018-07-25 23:33] LABS: Anisocytosis Slight; Basophils # (A) 0.1 k/uL (0-0.2); Basophils % (A) 1 %; Eosinophils # (A) 0.2 k/uL (0-0.7); Eosinophils % (A) 4 %; HCT 43.8 % (34.0-46.0); HGB 13.7 gm/dL (11.4-16.0); Hypochromasia Slight; Lymphocytes # (A) 0.6 k/uL (1.0-4.8); Lymphocytes % (A) 11 %; MCH 27.7 pg (25.0-35.0); MCHC 31.3 g/dL (31.0-37.0); MCV 88.6 fL (80.0-100.0); Monocytes # (A) 0.5 k/uL (0-1.0); Monocytes % (A) 8 %; Neutrophils # (A) 4.1 k/uL (1.3-7.7); Neutrophils % (A) 74 %; Platelet Count 139 k/uL (150-450); RBC 4.95 m/uL (3.80-5.40); RDW 17.2 % (11.5-15.5); WBC 5.5 k/uL (3.8-10.6)
[2018-07-25 23:45] LABS: Calcium 9.7 mg/dL (8.4-10.2); Potassium 3.7 mmol/L (3.5-5.1)
[2018-07-26] MEDS ORDERED: methylPREDNISolone SOD SUCCI 125 MG/2 ML VIAL IV STA ×2 (00:32→16:30)
[2018-07-26] MEDS ORDERED: IPRATROPIUM-ALBUTEROL 3 ML NEB INHALATION PRN (00:32)
--- NOTE | 2018-07-26 00:38 | XR ---
EXAM: XR Chest, 2 Views CLINICAL HISTORY: ITS.REASON XR Reason: difficulty breathing TECHNIQUE: Frontal and lateral views of the chest. COMPARISON: Chest x-ray dated 02/20/2018. FINDINGS: Lungs: Reidentified mild prominence of interstitial structures diffusely, which may represent pulmonary condition/edema. Pleural space: Unremarkable. No pneumothorax. Heart: Moderate to severe cardiomegaly. Mediastinum: This exam is a markedly limited, possibly due to patient's body habitus and/or large hiatal hernia. Bones/joints: Moderate degenerative changes of the thoracic spine. Lymph nodes: Reidentified bilateral perihilar opacities, right greater than left. These could represent pulmonary congestion/edema and/or lymphadenopathy or masses. Tubes, lines and devices: 3-lead AICD overlying the left chest wall. IMPRESSION: 1. This exam is a markedly limited, possibly due to patient's body habitus and/or large hiatal hernia. 2. Reidentified bilateral perihilar opacities, right greater than left. These could represent pulmonary congestion/edema and/or lymphadenopathy or masses. 3. Reidentified mild prominence of interstitial structures diffusely, which may represent pulmonary condition/edema.
[2018-07-26] MEDS ORDERED: ACETAMINOPHEN TAB 500 MG TAB PO PRN (00:45)
[2018-07-26] MEDS: methylPREDNISolone SOD SUCCI 125 MG/2 ML VIAL IV SCH ×3 (05:57→16:32)
[2018-07-26] MEDS: IPRATROPIUM-ALBUTEROL 3 ML NEB INHALATION SCH ×3 (08:27→16:34)
[2018-07-26 08:40] VITALS: PULSE 76
[2018-07-26] MEDS ORDERED: DIGOXIN 125 MCG TAB PO SCH (09:00)
[2018-07-26] MEDS ORDERED: LOSARTAN 50 MG TAB PO SCH (09:00)
[2018-07-26] MEDS ORDERED: FUROSEMIDE 40 MG TAB PO SCH (09:00)
[2018-07-26] MEDS ORDERED: METOPROLOL SUCCINATE (ER) 100 MG TAB.ER.24H PO SCH (09:00)
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
[2018-07-26 14:42] VITALS: BP 154/76; RESP 16; TEMP 97.9
[2018-07-26] MEDS ORDERED: RX INFO: IV CONTRAST WAS GIVEN 1 EACH MISC MISCELLANE PRN (16:13)
[2018-07-26] MEDS ORDERED: FAMOTIDINE 20 MG/2 ML VIAL IV STA (16:30)
[2018-07-26] MEDS ORDERED: diphenhydrAMINE 50 MG/ML 1 ML VIAL IVP STA (16:30)
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
[2018-07-26] MEDS ORDERED: ATORVASTATIN 40 MG TAB PO SCH (21:00)
--- NOTE | 2018-07-27 13:07 | DS ---
DISCHARGE SUMMARY DATE OF ADMISSION: 07/26/2018 DATE OF DISCHARGE: 07/26/2018 ADDENDUM: Please refer to my H and P for the discharge summary on this patient. MMODL / IJN: [id number] /
== END 2018-07-26 18:47 | disposition home or self-care (01) ==
LOC: EC 22:55 → 4SSUR 07-26 00:33
PROVIDERS: ADMIT Hospitalist; ATTEND Hospitalist
DX: J98.01 Acute bronchospasm (principal); E66.01 Morbid (severe) obesity due to excess calories; Z68.44 Body mass index [BMI] 60.0-69.9, adult; J70.5 Respiratory conditions due to smoke inhalation; T59.811A Toxic effect of smoke, accidental (unintentional), initial encounter; X00.0XXA Exposure to flames in uncontrolled fire in building or structure, initial encounter; E78.5 Hyperlipidemia, unspecified; F32.9 Major depressive disorder, single episode, unspecified; F43.10 Post-traumatic stress disorder, unspecified; I11.0 Hypertensive heart disease with heart failure; I42.9 Cardiomyopathy, unspecified; I48.2 Chronic atrial fibrillation; I50.32 Chronic diastolic (congestive) heart failure; I89.0 Lymphedema, not elsewhere classified; J96.01 Acute respiratory failure with hypoxia; K21.9 Gastro-esophageal reflux disease without esophagitis; K44.9 Diaphragmatic hernia without obstruction or gangrene; K57.30 Diverticulosis of large intestine without perforation or abscess without bleeding; M19.91 Primary osteoarthritis, unspecified site; N39.3 Stress incontinence (female) (male); Z79.899 Other long term (current) drug therapy; Z86.010 Personal history of colon polyps; Z86.73 Personal history of transient ischemic attack (TIA), and cerebral infarction without residual deficits; Z87.442 Personal history of urinary calculi; Z95.0 Presence of cardiac pacemaker; Z88.6 Allergy status to analgesic agent; Z91.041 Radiographic dye allergy status; Z82.49 Family history of ischemic heart disease and other diseases of the circulatory system
CPT/HCPCS: 96361 ×2; 99285; 96376; 96374; 36415; 94640 ×2; 94760; 80048; 82375; 85025; 71046; G0378; J2930; 96375

== ENCOUNTER 2018-12-18 15:40 | Emergency (ER) | payer MEDICARE, BC ==
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
[2018-12-18 17:21] LABS: Anisocytosis Slight; Basophils % (A) 1 %; Eosinophils # (A) 0.1 k/uL (0-0.7); Eosinophils % (A) 3 %; HCT 45.9 % (34.0-46.0); HGB 13.6 gm/dL (11.4-16.0); Hypochromasia Marked; Lymphocytes # (A) 0.4 k/uL (1.0-4.8); Lymphocytes % (A) 10 %; MCH 28.9 pg (25.0-35.0); MCHC 29.6 g/dL (31.0-37.0); MCV 97.7 fL (80.0-100.0); Macrocytosis Slight; Mean Platelet Volume 8.8; Monocytes # (A) 0.4 k/uL (0-1.0); Monocytes % (A) 8 %; Neutrophils # (A) 3.5 k/uL (1.3-7.7); Neutrophils % (A) 77 %; Platelet Count 140 k/uL (150-450); RDW 17.2 % (11.5-15.5); WBC 4.6 k/uL (3.8-10.6)
[2018-12-18 17:29] LABS: INR 1.1 (<1.2); Partial Thromboplastin Time 23.1 sec (22.0-30.0); Prothrombin Time 11.5 sec (9.0-12.0)
[2018-12-18 17:30] LABS: Albumin 3.8 g/dL (3.5-5.0); Calcium 9.1 mg/dL (8.4-10.2); Magnesium 2.4 mg/dL (1.6-2.3); Phosphorus 4.9 mg/dL (2.5-4.5); Potassium 4.2 mmol/L (3.5-5.1); Total Bilirubin 1.5 mg/dL (0.2-1.3); Total Protein 6.7 g/dL (6.3-8.2)
--- NOTE | 2018-12-18 17:52 | XR ---
EXAMINATION TYPE: XR abdomen acute w cxr DATE OF EXAM: 12/18/2018 COMPARISON: 07/26/2018 HISTORY: Short of breath TECHNIQUE: Supine, upright, and left side down lateral decubitus views of the abdomen are obtained. FINDINGS: Heart is enlarged. There is blunting right costophrenic angle. There is mild pulmonary congestion. Th ere is a left axillary pacemaker noted.. IMPRESSION: Mild heart failure probably not changed compared to old exam.
[2018-12-18 18:09] VITALS: RESP 20
[2018-12-18] MEDS ORDERED: FAMOTIDINE 20 MG/2 ML VIAL IV STA (18:47)
[2018-12-18] MEDS ORDERED: diphenhydrAMINE 50 MG/ML 1 ML VIAL IVP STA (18:47)
[2018-12-18] MEDS ORDERED: methylPREDNISolone SOD SUCCI 125 MG/2 ML VIAL IV STA (18:47)
[2018-12-18] MEDS ORDERED: FUROSEMIDE 10 MG/ML 4 ML VIAL IV STA (19:31)
[2018-12-18 20:07] VITALS: BP 113/58; PULSE 82; TEMP 98
== END 2018-12-18 20:40 | disposition home or self-care (01) ==
LOC: EC 15:40
DX: I11.0 Hypertensive heart disease with heart failure (principal); I50.9 Heart failure, unspecified; R10.9 Unspecified abdominal pain; I48.91 Unspecified atrial fibrillation; E78.5 Hyperlipidemia, unspecified; M19.90 Unspecified osteoarthritis, unspecified site; Z88.6 Allergy status to analgesic agent; Z91.041 Radiographic dye allergy status; Z79.899 Other long term (current) drug therapy; Z95.0 Presence of cardiac pacemaker; Z96.652 Presence of left artificial knee joint; Z95.818 Presence of other cardiac implants and grafts; Z87.19 Personal history of other diseases of the digestive system; Z82.49 Family history of ischemic heart disease and other diseases of the circulatory system
CPT/HCPCS: 36415; 74022; 80053; 82550; 83735; 83880; 84100; 84443; 84484; 85025; 85610; 85730; 87040; 93005; 99285

== ENCOUNTER 2018-12-18 20:57 | Inpatient (IN) | payer MEDICARE, BC ==
[2018-12-18] MEDS ORDERED: diphenhydrAMINE 50 MG/ML 1 ML VIAL IVP STA (21:55)
[2018-12-18] MEDS ORDERED: FAMOTIDINE 20 MG/2 ML VIAL IV STA (21:55)
[2018-12-18] MEDS ORDERED: methylPREDNISolone SOD SUCCI 125 MG/2 ML VIAL IV STA (21:55)
[2018-12-18] MEDS ORDERED: IPRATROPIUM-ALBUTEROL 3 ML NEB INHALATION STA (21:55)
--- NOTE | 2018-12-18 21:55 | ED ---
SOB HPI - General Chief Complaint: Shortness of Breath Stated Complaint: revisit Time Seen by Provider: 12/18/18 21:40 Source: patient, family, RN notes reviewed, old records reviewed Mode of arrival: ambulatory Limitations: no limitations - History of Present Illness Initial Comments: This is a 68-year-old female the ER for evaluation patient was seen in ER earlier today for similar complaints. Patient's complaining of increasing shortness of breath difficulty breathing difficulty with activities of daily living and difficulty with ambulation. Patient also significant lower extremity and diffuse edema. Increased weight gain. Patient denying any new pain or pain currently. Again no fevers. Patient has no symptoms change from prior to today day MD Complaint: shortness of breath, anxiety -: hour(s) Severity: moderate Severity scale (1-10): 6 Quality: dull Consistency: constant Improves With: oxygen, rest Worsens With: exertion, medication Known History Of: COPD, congestive heart failure Context: recent URI Associated Symptoms: orthopnea, lower abdominal swelling, parasthesias Treatments Prior to Arrival: none - Related Data Home Medications Medication Instructions Recorded Confirmed Digoxin [Lanoxin] 125 mcg PO MOWEFR 10/07/16 12/18/18 Atorvastatin [Lipitor] 40 mg PO HS 05/29/17 12/18/18 Irbesartan [Avapro] 300 mg PO DAILY 07/25/18 12/18/18 Metoprolol Succinate (ER) [Toprol 100 mg PO BID 07/25/18 12/18/18 XL] traMADol HCL 50 mg PO Q6H PRN 12/18/18 12/18/18 Previous Rx's Medication Instructions Recorded Furosemide [Lasix] 40 mg PO DAILY #30 tab 02/26/18 Allergies Allergy/AdvReac Type Severity Reaction Status Date / Time aspirin AdvReac Unknown STATES SHE Verified 12/18/18 21:31 WAS TOLD NOT TO TAKE. Iodinated Contrast Media AdvReac Unknown STATES SHE Verified 12/18/18 21:31 [Iodinated Contrast- Oral WAS TOLD and IV Dye] TO AVOID NSAIDS (Non-Steroidal AdvReac Unknown STATES SHE Verified 12/18/18 21:31 Anti-Inflamma WAS TOLD TO AVOID Review of Systems ROS Statement: Those systems with pertinent positive or pertinent negative responses have been documented in the HPI. ROS Other: All systems not noted in ROS Statement are negative. 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 Past Anesthesia/Blood Transfusion Reactions: No Reported Reaction Type of Cardiac Device: Permanent Pacemaker Device Placement Date:: 04/24/2013 placed and gen change in May 2017 Past Psychological History: Anxiety, Depression, PTSD Smoking Status: Never smoker Past Alcohol Use History: Rare Past Drug Use History: None Reported - Past Family History Father Additional Family Medical History / Comment(s): BRAIN ANEURYSM Mother Family Medical History: Coronary Artery Disease (CAD), Dementia Additional Family Medical History / Comment(s): FROM "HEART DISEASE" PER PATIENT. General Exam Limitations: no limitations General appearance: alert, in no apparent distress Head exam: Present: atraumatic, normocephalic, normal inspection Eye exam: Present: normal appearance, EOMI. Absent: scleral icterus, conjunctival injection, periorbital swelling ENT exam: Present: normal exam, mucous membranes moist Neck exam: Present: normal inspection. Absent: tenderness, meningismus, lymphadenopathy Respiratory exam: Present: respiratory distress, rhonchi, decreased breath sounds, prolonged expiratory. Absent: wheezes, rales, stridor Cardiovascular Exam: Present: regular rate, normal rhythm, normal heart sounds. Absent: systolic murmur, diastolic murmur, rubs, gallop, clicks GI/Abdominal exam: Present: soft, normal bowel sounds. Absent: distended, tenderness, guarding, rebound, rigid Extremities exam: Present: normal inspection, full ROM, normal capillary refill. Absent: tenderness, pedal edema, joint swelling, calf tenderness Back exam: Present: normal inspection Neurological exam: Present: alert, oriented X3, CN II-XII intact Psychiatric exam: Present: normal affect, normal mood Skin exam: Present: warm, dry, intact, normal color. Absent: rash Course Vital Signs 12/18/18 12/18/18 12/18/18 21:22 21:29 22:00 Temperature 98.0 F Pulse Rate 76 114 H 97 Pulse Rate [ Right] Respiratory 22 22 21 Rate Blood Pressure 110/79 145/99 128/88 Blood Pressure [Right Arm] O2 Sat by Pulse 98 94 L 97 Oximetry 12/18/18 12/18/18 12/18/18 22:30 23:00 23:23 Temperature Pulse Rate 108 H 98 90 Pulse Rate [ Right] Respiratory 22 22 Rate Blood Pressure 132/94 172/102 Blood Pressure [Right Arm] O2 Sat by Pulse 97 96 Oximetry 12/18/18 12/19/18 12/19/18 23:30 00:00 01:00 Temperature Pulse Rate 92 99 90 Pulse Rate [ Right] Respiratory 22 20 Rate Blood Pressure 131/96 134/96 Blood Pressure [Right Arm] O2 Sat by Pulse 95 97 Oximetry 12/19/18 12/19/18 12/19/18 02:00 03:00 04:00 Temperature Pulse Rate 95 90 94 Pulse Rate [ Right] Respiratory 21 20 21 Rate Blood Pressure 113/68 130/94 125/68 Blood Pressure [Right Arm] O2 Sat by Pulse 96 95 95 Oximetry 12/19/18 12/19/18 05:00 07:00 Temperature 97.4 F L Pulse Rate 96 Pulse Rate [ 91 Right] Respiratory 22 17 Rate Blood Pressure 122/94 Blood Pressure 116/70 [Right Arm] O2 Sat by Pulse 94 L 92 L Oximetry - Reevaluation(s) Reevaluation #1: 12/18/18 21:54 medical record and ER visits are reviewed Patient is seen in the ER earlier today significant shortness of breath is increasing currently Medical Decision Making - Medical Decision Making 68 female the ER for evaluation of significant shortness of breath especially with exertion severe CHF with underlying obesity hypoventilation syndrome, patient unable to get CAT scan here in the ER secondary to wait and body habitus. Patient be admitted for continued diaphoresis and monitoring of cardiopulmonary status - Lab Data Result diagrams: 12/23/18 04:31 12/23/18 04:31 Lab Results 12/18/18 12/18/18 Range/Units 02:06 22:48 D-Dimer 3.18 H (<0.60) mg/L FEU Sodium 141 (137-145) mmol/L Potassium 4.9 (3.5-5.1) mmol/L Chloride 114 H (98-107) mmol/L Carbon Dioxide 15 L (22-30) mmol/L Anion Gap 12 mmol/L BUN 23 H (7-17) mg/dL Creatinine 0.91 (0.52-1.04) mg/dL Est GFR (CKD-EPI)AfAm 74 (>60 ml/min/1.73 sqM) Est GFR (CKD-EPI)NonAf 64 (>60 ml/min/1.73 sqM) Glucose 90 (74-99) mg/dL Calcium 9.1 (8.4-10.2) mg/dL Total Bilirubin 1.5 H (0.2-1.3) mg/dL AST 18 (14-36) U/L ALT 10 (9-52) U/L Alkaline Phosphatase 62 (38-126) U/L Total Protein 6.7 (6.3-8.2) g/dL Albumin 3.8 (3.5-5.0) g/dL - Radiology Data Radiology results: report reviewed (Chest x-ray and studies from earlier in the day reviewed, unable to obtain computed tomography scan here in the ER) Disposition Clinical Impression: Bronchospasm, acute, Congestive heart failure, Bilateral leg edema, Anasarca Disposition: ADMITTED IP TO THIS HOSP Condition: Fair Is patient prescribed a controlled substance at d/c from ED?: No
[2018-12-18 23:09] LABS: Albumin 3.8 g/dL (3.5-5.0); Calcium 9.1 mg/dL (8.4-10.2); Potassium 4.9 mmol/L (3.5-5.1); Total Bilirubin 1.5 mg/dL (0.2-1.3); Total Protein 6.7 g/dL (6.3-8.2)
[2018-12-19] MEDS ORDERED: LABETALOL 5 MG/ML VIAL MDV IVP STA (00:18)
[2018-12-19] MEDS: FUROSEMIDE 10 MG/ML 4 ML VIAL IV SCH ×4 (00:44→22:16)
[2018-12-19] MEDS ORDERED: ENOXAPARIN 40 MG/0.4 ML SYRINGE SQ STA ×2 (03:19→03:22)
[2018-12-19] MEDS ORDERED: traMADol HCL 50 MG TABLET PO PRN (08:05)
[2018-12-19] MEDS: IPRATROPIUM-ALBUTEROL 3 ML NEB INHALATION PRN (08:13)
[2018-12-19] MEDS: METOPROLOL SUCCINATE (ER) 100 MG TAB.ER.24H PO SCH ×2 (09:36→22:16)
[2018-12-19] MEDS: LOSARTAN 50 MG TAB PO SCH (09:36)
[2018-12-19] MEDS: ENOXAPARIN 40 MG/0.4 ML SYRINGE SQ SCH (09:37)
[2018-12-19] MEDS ORDERED: methylPREDNISolone SOD SUCCI 125 MG/2 ML VIAL IV ONE (10:00)
--- NOTE | 2018-12-19 10:40 | US ---
EXAMINATION TYPE: US venous doppler duplex LE DATE OF EXAM: 12/19/2018 10:26 AM COMPARISON: NONE CLINICAL HISTORY: elevated d-dimer. Exam limited due to large body habitus. SIDE PERFORMED: Bilateral TECHNIQUE: The lower extremity deep venous system is examined utilizing real time linear array sonog pito with graded compression, doppler sonography and color-flow sonography. VESSELS IMAGED: External Iliac Vein (EIV) Common Femoral Vein Deep Femoral Vein Greater Saphenous Vein * Femoral Vein Popliteal Vein Grayscale, color doppler, spectral doppler imaging performed of the deep veins of the lower extremiti es. There is normal flow, compressibility, vascular waveforms. Right Leg: Limited. Appears negative for DVT. Left Leg: Limited. Appears negative for DVT. IMPRESSION: Limited exam due to large body habitus. No sonographic evidence of deep venous thrombosi s within the bilateral lower extremities.
[2018-12-19] MEDS: ACETAMINOPHEN TAB 325 MG TAB PO PRN ×2 (11:14→23:42)
--- NOTE | 2018-12-19 12:00 | ECHOF ---
Referral Reason:CHF MEASUREMENTS -------- HEIGHT: 149.9 cm WEIGHT: 132.9 kg BP: RVIDd: 4.0 cm (< 3.3) IVSd: 1.4 cm (0.6 - 1.1) LVIDd: 3.8 cm (3.9 - 5.3) LVPWd: 1.2 cm (0.6 - 1.1) IVSs: 2.0 cm LVIDs: 2.5 cm LVPWs: 1.9 cm LA Diam: 4.3 cm (2.7 - 3.8) LAESV Index (A-L): 43.02 ml/m Ao Diam: 3.5 cm (2.0 - 3.7) AV Cusp: 1.7 cm (1.5 - 2.6) MV EXCURSION: 26.725 mm (> 18.000) MV EF SLOPE: 128 mm/s (70 - 150) EPSS: 0.3 cm RAP: 15.00 mmHg RVSP: 79.62 mmHg TAPSE: 16.49 mm FINDINGS -------- Atrial fibrillation. This was a technically adequate study. The left ventricular size is normal. There is moderate concentric left ventricular hypertrophy. O verall left ventricular systolic function is normal with, an EF between 65 - 70 %. There is septal flattening in diastole and systole which is consistent with right ventricular pressure and volume ove rload. The right ventricle is moderately enlarged. The right ventricular systolic function is moderately i mpaired. LA is severely dilated >40 ml/m2 The right atrium is normal in size. Interatrial and interventricular septum intact. There is mild aortic valve sclerosis. The mitral valve leaflets are mildly thickened. Mild mitral annular calcification present. Modera te mitral regurgitation is present , predominately a posteriorly directed jet. Moderate prolapse of the anterior mitral valve leaflet. Severe tricuspid regurgitation present. There is severe pulmonary hypertension. The right ventric ular systolic pressure, as measured by Doppler, is 79.62mmHg. Trace/mild (physiologic) pulmonic regurgitation. The aortic root size is normal. The inferior vena cava is dilated with no significant inspiratory collapse which is consistent estima eddie right atrial pressure of >15 mmHg. There is no pericardial effusion. CONCLUSIONS -------- 1. Atrial fibrillation. 2. This was a technically adequate study. 3. The left ventricular size is normal. 4. There is moderate concentric left ventricular hypertrophy. 5. Overall left ventricular systolic function is normal with, an EF between 65 - 70 %. 6. There is septal flattening in diastole and systole which is consistent with right ventricular pres sure and volume overload. 7. The right ventricle is moderately enlarged. 8. The right ventricular systolic function is moderately impaired. 9. LA is severely dilated >40 ml/m2 10. The right atrium is normal in size. 11. Interatrial and interventricular septum intact. 12. There is mild aortic valve sclerosis. 13. The mitral valve leaflets are mildly thickened. 14. Mild mitral annular calcification present. 15. Moderate mitral regurgitation is present. 16. , predominately a posteriorly directed jet. 17. Moderate prolapse of the anterior mitral valve leaflet. 18. Severe tricuspid regurgitation present. 19. There is severe pulmonary hypertension. 20. The right ventricular systolic pressure, as measured by Doppler, is 79.62mmHg. 21. Trace/mild (physiologic) pulmonic regurgitation. 22. The aortic root size is normal. 23. The inferior vena cava is dilated with no significant inspiratory collapse which is consistent es timated right atrial pressure of >15 mmHg. 24. There is no pericardial effusion. [employer] JUSTICE: Araceli Sosa RDCS
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
[2018-12-19] MEDS ORDERED: FAMOTIDINE 20 MG/2 ML VIAL IV ONE (15:30)
[2018-12-19] MEDS ORDERED: diphenhydrAMINE 50 MG/ML 1 ML VIAL IVP ONE (15:30)
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
[2018-12-19] MEDS: ATORVASTATIN 40 MG TAB PO SCH (22:15)
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
[2018-12-20] MEDS: ACETAMINOPHEN TAB 325 MG TAB PO PRN ×2 (07:20→16:50)
[2018-12-20] MEDS: FUROSEMIDE 10 MG/ML 4 ML VIAL IV SCH (07:21)
[2018-12-20] MEDS: ENOXAPARIN 40 MG/0.4 ML SYRINGE SQ SCH (08:43)
[2018-12-20] MEDS: METOPROLOL SUCCINATE (ER) 100 MG TAB.ER.24H PO SCH ×2 (08:46→20:35)
[2018-12-20] MEDS: DIGOXIN 125 MCG TAB PO SCH (08:46)
--- NOTE | 2018-12-20 09:18 | CT ---
CT CHEST FOR PULMONARY EMBOLISM. EXAMINATION TYPE: CT angio chest DATE OF EXAM: 12/19/2018 INDICATION: Short of breath, elevated d-dimer CT DLP: 818.3 mGycm, Automated exposure control for dose reduction was used. CONTRAST: Patient injected with 100 mL of Isovue 370. COMPARISON: None TECHNIQUE: CT of the chest is performed on a spiral scan at 2 mm thick sections. Study is performed with intravenous contrast timed for evaluation for pulmonary embolism. This will limit additional po rtions of the evaluation. 3-D MIP images reconstructed by the technologist are reviewed on the compu ter in the coronal and sagittal planes. Mammogram is limited with loss of contrast during the exam. I mages are presented for final interpretation 12/20/2018. FINDINGS: No persistent filling defects are evident to suggest an acute pulmonary embolism. However, this is so mewhat limited and smaller peripheral pulmonary emboli may not be identified. No mediastinal or hilar adenopathy enlarged by CT criteria is evident. The ascending aorta diameter at the level of the main pulmonary artery is 3.5 cm. The main pulmonary artery diameter at the bifur cation is 3.6 cm. Some mild pulmonary hypertension may be present. No right heart strain is identifie d. There is a small right pleural effusion. Compressive atelectasis is within the dependent right lung b ase. Small amount of ascites is present. Edema within the soft tissues appears to be present. Limited CT section through the upper abdomen are unremarkable. IMPRESSIONS: 1. No large central pulmonary emboli are evident. Smaller pulmonary emboli may not be visualized limi eddie exam. 2. Small right pleural effusion with adjacent compressive atelectasis or pneumonia. 3. Ascites.
[2018-12-20] MEDS ORDERED: SPIRONOLACTONE 25 MG TAB PO SCH (10:15)
[2018-12-20] MEDS: LOSARTAN 50 MG TAB PO SCH (10:39)
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
[2018-12-20 13:05] LABS: Calcium 9.2 mg/dL (8.4-10.2); Potassium 5.1 mmol/L (3.5-5.1)
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
[2018-12-20 15:54] LABS: Appearance,Urine Turbid (Clear); Bilirubin,Urine Negative (Negative); Blood,Urine Large (Negative); Color,Urine Dark Brown; Glucose,Urine (UA) Negative (Negative); Ketones,Urine Negative (Negative); Leukocyte Esterase,Urine Small (Negative); Mucus,Urine Rare /hpf; Nitrite,Urine Negative (Negative); PH, Urine 5.5 (5.0-8.0); Protein,Urine 2+ (Negative); RBC,Urine >182 /hpf (0-5); Specific Gravity,Urine 1.027 (1.001-1.035); WBC,Urine >182 /hpf (0-5)
[2018-12-20] MEDS: FUROSEMIDE 100 MG in SODIUM CHLORIDE 0.9% 90 ML IV SCH (16:00)
[2018-12-20] MEDS: ATORVASTATIN 40 MG TAB PO SCH (20:30)
[2018-12-20] MEDS: SPIRONOLACTONE 25 MG TAB PO SCH (20:35)
[2018-12-20] MEDS: METOLAZONE 5 MG TAB PO SCH (20:35)
--- NOTE | 2018-12-20 23:11 | P.PN ---
Progress Note - Text Progress Note Date: 12/20/18 History of presenting complaint: This is a 68-year-old patient who follows Dr. Cooper. 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 SHELL Dawn. Has a rather extensive medical history. Chronic stable medical conditions include GERD, hyperlipidemia, hypertension, Werner arthritis, had a stroke in 2017 left her with a slow speech, diverticulosis. Patient also has a history of CHF and atrial fibrillation. Patient is chronically short of breath. Put for last few days she's getting more and more short of breath. Slight cough. No sputum production. Some wheezing. No fever no chills. Increasing edema. Decreased appetite. Admitted for the same. Quite a bit short of breath at rest. Admitted with acute CHF exacerbation. Also expressed some suicidal ideation the past. Noticed by the nurse. Psychiatry consultation was done. Today-breathing a bit better. Not suicidal. Sister is visiting. Did tolerate her diet. Review of systems: Was done for constitutional, cardiovascular, GI, pulmonary. relevant finding as above Active Medications Acetaminophen (Tylenol Tab) 650 mg PO Q6HR PRN PRN Reason: Fever and/ or Mild Pain Last Admin: 12/20/18 16:50 Dose: 650 mg Documented by: Albuterol/Ipratropium (Duoneb 0.5 Mg-3 Mg/3 Ml Soln) 3 ml INHALATION RT-QID PRN PRN Reason: Shortness Of Breath Or Wheezing Last Admin: 12/19/18 08:13 Dose: 3 ml Documented by: Atorvastatin Calcium (Lipitor) 40 mg PO HS [facility] Last Admin: 12/20/18 20:30 Dose: Not Given Documented by: Digoxin (Lanoxin) 125 mcg PO MoWeFr@0900 [facility] Last Admin: 12/20/18 08:46 Dose: 125 mcg Documented by: Enoxaparin Sodium (Lovenox) 30 mg SQ DAILY [facility] Furosemide 100 mg/ Sodium (Chloride) 100 mls @ 10 mls/hr IV .Q10H [facility] Last Admin: 12/20/18 16:00 Dose: 10 mg/hr, 10 mls/hr Documented by: Losartan Potassium (Cozaar) 100 mg PO DAILY [facility] Last Admin: 12/20/18 10:39 Dose: Not Given Documented by: Metolazone (Zaroxolyn) 5 mg PO DAILY [facility] Last Admin: 12/20/18 20:35 Dose: 5 mg Documented by: Metoprolol Succinate (Toprol Xl) 100 mg PO BID [facility] Last Admin: 12/20/18 20:35 Dose: 100 mg Documented by: Spironolactone (Aldactone) 25 mg PO BID [facility] Last Admin: 12/20/18 20:35 Dose: 25 mg Documented by: Tramadol HCl (Tramadol Hcl) 50 mg PO Q6H PRN PRN Reason: Moderate Pain Physical examination: VITAL SIGNS: GENERAL: 65.5, laying in bed, short of breath. EYES: Pupils equal. Conjunctiva normal. HEENT: External appearance of nose and ears normal, oral cavity grossly normal. NECK: Short and thick, JVD unable to assess; masses not palpable. HEART: Heart sounds muffled; edema present. LUNGS: Respiratory rate increased; distant breath sounds. ABDOMEN: Soft, nontender, liver spleen not palpable, no masses palpable. PSYCH: [Alert and oriented x3; mood and affect anxious l. NEUROLOGICAL: Cranial nerves grossly intact; no facial asymmetry, power and sensation grossly intact. LYMPHATICS: No lymph nodes palpable in the axilla and neck INVESTIGATIONS, reviewed in the clinical context: Potassium 5.1. Bun 32 pressure 1.52 Chest CTA-negative for PE 2-D echo-EF 65-70%, moderate concentric left medical hypertrophy, moderate mitral regurgitation, severe tricuspid regurgitation, severe pulmonary hypertension, moderate prolapse of the anterior mitral valve leaflet Admission testing Potassium 4.9 bun 23 creatinine 0.91 Lower extremity Doppler-negative Assessment: -Acute congestive heart failure exacerbation from diastolic dysfunction EF 65- 70%, slow to respond -Acute on chronic cor pulmonale, exacerbation, slow to respond -Severe secondary pulmonary hypertension from CHF -Acute renal failure, prerenal from diuresis -Hypertensive heart disease -Moderate mitral regurgitation, severe tricuspid regurgitation, mitral valve prolapse, nontraumatic -GERD -Hyperlipidemia -Essential hypertension -Primary osteoarthritis -Chronic diverticulosis -Morbid obesity BMI 65.5 -Possibly obesity hypoventilation syndrome -Traumatic hematuria -Depression- Plan: Patient on Lasix drip. Continue strict I's and O's. For close eye on renal function. Other medications to continue. Awaiting psych input. Discussed with the patient and the sister..
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
[2018-12-21] MEDS: ACETAMINOPHEN TAB 325 MG TAB PO PRN ×2 (01:42→08:06)
[2018-12-21] MEDS: FUROSEMIDE 100 MG in SODIUM CHLORIDE 0.9% 90 ML IV SCH (02:48)
[2018-12-21] MEDS: METOPROLOL SUCCINATE (ER) 100 MG TAB.ER.24H PO SCH ×2 (08:06→21:37)
[2018-12-21] MEDS: SPIRONOLACTONE 25 MG TAB PO SCH (08:06)
[2018-12-21] MEDS: LOSARTAN 50 MG TAB PO SCH (08:07)
[2018-12-21] MEDS: METOLAZONE 5 MG TAB PO SCH (08:07)
[2018-12-21] MEDS: ENOXAPARIN 30 MG/0.3 ML SYRINGE SQ SCH (08:07)
[2018-12-21] MEDS: NIFEdipine XL 30 MG TAB.ER.24 PO SCH (10:58)
[2018-12-21] MEDS ORDERED: DEXTROSE/WATER 1 250ML.BAG with DOPamine DRIP 800 MG IV SCH (11:00)
--- NOTE | 2018-12-21 12:38 | P.PN ---
Subjective This is a pleasant 68-year-old female past medical history significant for idiopathic nonischemic cardiomyopathy, permanent atrial fibrillation, permanent pacemaker implantation, CVA, hypertension, dyslipidemia, chronic diastolic heart failure and morbid obesity. She follows with Dr. Boo in the office. We have been asked to see her in consultation for shortness of breath. She states she has been getting increasingly short of breath over the past month. She apparently stopped taking her prescribed lasix because it was causing her to urinate too much and she had no control over when she would go. She denies chest pain, dizziness or palpitations. She initially presented on December 18 with multiple complaints including inability to perform activities of daily living however she left AMA. At that time she had a chest x-ray obtained that revealed mild heart failure unchanged from previous exam. She came back to the emergency department a few hours later agreeing to be admitted. She underwent a CT of her chest was negative for pulmonary embolism, small right pleural effusion and ascites. Bilateral venous duplex negative for DVT. Echocardiogram obtained reveals preserved LV systolic function with ejection fraction 65-70%, septal flattening in diastole consistent with RVSP elevation and volume overload, severely dilated left atrium, moderate MR with a predominantly posteriorly directed jet, moderate prolapse of the anterior mitral leaflet, severe tricuspid regurgitation and severe pulmonary hypertension with RVSP of 79 mmHg. Laboratory data reviewed, WBC 4.6, hemoglobin 13.6, platelets 140, sodium 142, potassium 5.1, creatinine 1.52 with a GFR of 35, cardiac enzymes negative 1, proBNP 11,900, magnesium 2.4, TSH 2.71, d-dimer 3.18. Current daily cardiac medications include atorvastatin 40 mg daily, digoxin 125 g on Sunday and Sunday, Lasix 40 mg daily, irbesartan 300 mg daily and Toprol 100 mg twice a day. Barton catheter noted in dependent drainage bag with dark tea-colored urine. 12/21/2018 Patient is seen and examined today with Dr. Dawn. She is sitting up and appears much more comfortable from a respiratory status. Lasix drip initiated yesterday. She only has 300 mL of urine output for the previous 24 hours. Urine in Barton bag continues to be tea-colored. Blood pressure 96/62 heart rate 78 afebrile maintaining oxygen saturation on nasal cannula. Laboratory data reviewed, sodium 143, potassium 1.71. GENERAL: This is a 68-year-old female in no apparent distress at the time of my examination. Morbidly obese. HEENT: Head is atraumatic, normocephalic. Pupils are equal, round. Sclerae anicteric. Conjunctivae are clear. Mucous membranes of the mouth are moist. Neck is supple. Difficult to assess for jugular venous distention secondary to body habitus. No carotid bruit is heard. LUNGS: Clear bilaterally with no rales, rhonchi or wheezes. Diminished bilatera lly. No chest wall tenderness is noted on palpation or with deep breathing. HEART: Irregular rate and rhythm with systolic ejection murmur at the apex, no rubs or gallops. S1 and S2 heard. ABDOMEN: Soft, nontender. Bowel sounds are heard. No organomegaly noted. Morbidly obese. EXTREMITIES: Bilateral lower extremity edema, non-pitting with dry, flaking and cracked skin. ASSESSMENT Acute on chronic diastolic right-sided heart failure Severe pulmonary hypertension History of idiopathic nonischemic cardiomyopathy Permanent atrial fibrillation History of sick sinus syndrome status post permanent pacemaker implantation Hypertension Dyslipidemia Valvular heart disease Morbid obesity, BMI 70 PLAN Discontinue Lasix infusion and Zaroxolyn. Initiate on dopamine for renal perfusion along with Lasix 60 mg by mouth twice a day. Gentle hydration at 50 mL per hour. Initiated on dofetilide 30 mg daily. Transfer to selective care unit. Recommend nephrology consultation. We will continue to follow and make recommendations accordingly. Nurse Practitioner note has been reviewed, I agree with a documented findings and plan of care. Patient was seen and examined. Objective - Vital Signs Vital signs: Vital Signs Temp 98 F 12/21/18 07:00 Pulse 78 12/21/18 08:00 Resp 16 12/21/18 08:00 BP 96/62 12/21/18 07:00 Pulse Ox 96 12/21/18 07:00 Intake & Output 12/20/18 12/21/18 12/21/18 18:59 06:59 18:59 Intake Total 100 Output Total 300 Balance -300 100 Weight 157.5 kg 125.5 kg Intake: Intake, IV Titration 100 Amount Furosemide 100 mg In 100 Sodium Chloride 0.9% 90 ml @ 10 MG/HR 10 mls/hr IV .Q10H DOC Rx#: [id number] Output: Urine 300 Other: Voiding Method Indwelling Catheter Indwelling Catheter Indwelling Catheter - Labs CBC & Chem 7: 12/21/18 06:45 Labs: Abnormal Lab Results - Last 24 Hours (Table) 12/20/18 12/20/18 12/21/18 Range/Units 12:18 15:00 06:45 Chloride 111 H 113 H (98-107) mmol/L Carbon Dioxide 17 L 18 L (22-30) mmol/L BUN 32 H 37 H (7-17) mg/dL Creatinine 1.52 H 1.71 H (0.52-1.04) mg/dL Glucose 122 H (74-99) mg/dL Urine Appearance Turbid H (Clear) Urine Protein 2+ H (Negative) Urine Blood Large H (Negative) Ur Leukocyte Esterase Small H (Negative) Urine RBC >182 H (0-5) /hpf Urine WBC >182 H (0-5) /hpf Urine WBC Clumps Many H (None) /hpf Urine Mucus Rare H (None) /hpf
[2018-12-21] MEDS: DEXTROSE/WATER 1 250ML.BAG with DOPamine DRIP 800 MG IV SCH (13:30)
[2018-12-21] MEDS: SODIUM CHLORIDE 0.9% 1,000 ML IV SCH (16:09)
[2018-12-21] MEDS: DOBUTamine DRIP 500 MG in DEXTROSE/WATER 1 250ML.BAG IV SCH (17:07)
[2018-12-21] MEDS: FUROSEMIDE 20 MG TAB PO SCH (17:08)
--- NOTE | 2018-12-21 19:23 | P.PN ---
Progress Note - Text Progress Note Date: 12/21/18 History of presenting complaint: This is a 68-year-old patient who follows Dr. Cooper. 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 Has a rather extensive medical history. Chronic stable medical conditions include GERD, hyperlipidemia, hypertension, Werner arthritis, had a stroke in 2017 left her with a slow speech, diverticulosis. Patient also has a history of CHF and atrial fibrillation. Patient is chronically short of breath. Put for last few days she's getting more and more short of breath. Slight cough. No sputum production. Some wheezing. No fever no chills. Increasing edema. Decreased appetite. Admitted for the same. Quite a bit short of breath at rest. Admitted with acute CHF exacerbation. Also expressed some suicidal ideation the past. Noticed by the nurse. Psychiatry consultation was done. Seen by psychiatry. Flushing to have PTSD and depression. Patient reluctant to start any antidepressants. Today-Breathing continues to improve. Seen by cardiology. Started on dobutamine drip. Review of systems: Was done for constitutional, cardiovascular, GI, pulmonary. relevant finding as above Active Medications Acetaminophen (Tylenol Tab) 650 mg PO Q6HR PRN PRN Reason: Fever and/ or Mild Pain Last Admin: 12/21/18 08:06 Dose: 650 mg Documented by: Albuterol/Ipratropium (Duoneb 0.5 Mg-3 Mg/3 Ml Soln) 3 ml INHALATION RT-QID PRN PRN Reason: Shortness Of Breath Or Wheezing Last Admin: 12/19/18 08:13 Dose: 3 ml Documented by: Atorvastatin Calcium (Lipitor) 40 mg PO HS [facility] Last Admin: 12/20/18 20:30 Dose: Not Given Documented by: Digoxin (Lanoxin) 125 mcg PO MoWeFr@0900 [facility] Last Admin: 12/20/18 08:46 Dose: 125 mcg Documented by: Enoxaparin Sodium (Lovenox) 30 mg SQ DAILY [facility] Last Admin: 12/21/18 08:07 Dose: 30 mg Documented by: Furosemide (Lasix) 60 mg PO BID@0900,1600 [facility] Last Admin: 12/21/18 17:08 Dose: 60 mg Documented by: Sodium Chloride (Saline 0.9%) 1,000 mls @ 50 mls/hr IV .Q20H [facility] Last Admin: 12/21/18 16:09 Dose: Not Given Documented by: Dopamine HCl/Dextrose 800 mg/ (IV Solution) 250 mls @ 5.883 mls/hr IV .Q24H [facility] Last Admin: 12/21/18 13:30 Dose: Not Given Documented by: Dobutamine HCl/Dextrose 500 mg (/ IV Solution) 250 mls @ 9.413 mls/hr IV .Q24H [facility] Last Admin: 12/21/18 17:07 Dose: 2.5 mcg/kg/min, 9.413 mls/hr Documented by: Losartan Potassium (Cozaar) 50 mg PO DAILY [facility] Metoprolol Succinate (Toprol Xl) 100 mg PO BID [facility] Last Admin: 12/21/18 08:06 Dose: 100 mg Documented by: Nifedipine (Procardia Xl) 30 mg PO DAILY [facility] Last Admin: 12/21/18 10:58 Dose: Not Given Documented by: Spironolactone (Aldactone) 25 mg PO BID [facility] Last Admin: 12/21/18 08:06 Dose: 25 mg Documented by: Tramadol HCl (Tramadol Hcl) 50 mg PO Q6H PRN PRN Reason: Moderate Pain Physical examination: VITAL SIGNS: 98, 78, 16, 96/62, 96% on nasal cannula GENERAL: Sitting up, awake, in bed EYES: Pupils equal. Conjunctiva normal. HEENT: External appearance of nose and ears normal, oral cavity grossly normal. NECK: Short and thick, JVD unable to assess; masses not palpable. HEART: Heart sounds muffled; edema present. LUNGS: Respiratory rate increased; distant breath sounds. ABDOMEN: Soft, nontender, liver spleen not palpable, no masses palpable. PSYCH: [Alert and oriented x3; mood and affect anxious l. INVESTIGATIONS, reviewed in the clinical context: Potassium 5 bun 37 creatinine 1.7 to Chest CTA-negative for PE 2-D echo-EF 65-70%, moderate concentric left medical hypertrophy, moderate mitral regurgitation, severe tricuspid regurgitation, severe pulmonary hypertension, moderate prolapse of the anterior mitral valve leaflet Admission testing Potassium 4.9 bun 23 creatinine 0.91 Lower extremity Doppler-negative Assessment: -Acute congestive heart failure exacerbation from diastolic dysfunction EF 65- 70%, improved -Acute on chronic cor pulmonale, exacerbation, improved -Severe secondary pulmonary hypertension from CHF -Acute renal failure, prerenal from diuresis, worsening -Hypertensive heart disease -Moderate mitral regurgitation, severe tricuspid regurgitation, mitral valve prolapse, nontraumatic -GERD -Hyperlipidemia -Essential hypertension -Primary osteoarthritis -Chronic diverticulosis -Morbid obesity BMI 65.5 -Possibly obesity hypoventilation syndrome -Traumatic hematuria -Depression- Plan: Earlier today patient put on dobutamine drip. Switched to by mouth Lasix. I think patient is euvolemic. Creatinine has been going up.
[2018-12-21] MEDS: ATORVASTATIN 40 MG TAB PO SCH (21:35)
[2018-12-22] MEDS: ACETAMINOPHEN TAB 325 MG TAB PO PRN (00:17)
[2018-12-22] MEDS ORDERED: traMADol HCL 50 MG TABLET PO PRN (02:20)
[2018-12-22] MEDS ORDERED: traMADol 50 MG TAB ONE (02:23)
[2018-12-22] MEDS: SPIRONOLACTONE 25 MG TAB PO SCH ×3 (02:25→20:10)
[2018-12-22] MEDS: SODIUM CHLORIDE 0.9% 1,000 ML IV SCH (06:04)
[2018-12-22 06:29] LABS: Anisocytosis Slight; HCT 43.9 % (34.0-46.0); HGB 13.1 gm/dL (11.4-16.0); Hypochromasia Marked; MCH 30.1 pg (25.0-35.0); MCHC 29.8 g/dL (31.0-37.0); MCV 101.1 fL (80.0-100.0); Macrocytosis Slight; Mean Platelet Volume 8.6; Platelet Count 115 k/uL (150-450); RBC 4.34 m/uL (3.80-5.40); RDW 16.9 % (11.5-15.5); WBC 8.1 k/uL (3.8-10.6)
[2018-12-22 06:31] LABS: Calcium 8.9 mg/dL (8.4-10.2); Potassium 5.1 mmol/L (3.5-5.1)
[2018-12-22] MEDS: ENOXAPARIN 30 MG/0.3 ML SYRINGE SQ SCH (08:16)
[2018-12-22] MEDS: FUROSEMIDE 20 MG TAB PO SCH (08:17)
[2018-12-22] MEDS: METOPROLOL SUCCINATE (ER) 100 MG TAB.ER.24H PO SCH (08:18)
[2018-12-22] MEDS: NIFEdipine XL 30 MG TAB.ER.24 PO SCH (08:18)
[2018-12-22] MEDS: IPRATROPIUM-ALBUTEROL 3 ML NEB INHALATION PRN (08:51)
[2018-12-22] MEDS ORDERED: LOSARTAN 50 MG TAB PO SCH (09:00)
--- NOTE | 2018-12-22 09:09 | XR ---
EXAMINATION TYPE: XR chest 1V portable DATE OF EXAM: 12/22/2018 HISTORY: sob. REFERENCE: Previous study dated 07/26/2018. FINDINGS: There is a bipolar pacemaker place on the left. This appears to be an interval change. The heart is enlarged. There is bibasilar infiltrates. I cannot exclude small effusions. IMPRESSION: 1. LIMITED EXAMINATION DUE TO PATIENT BODY HABITUS. 2. CARDIOMEGALY. 3. BIBASILAR AIRSPACE DISEASE, WORSE ON THE RIGHT LEFT. 4. I CANNOT EXCLUDE SMALL, BILATERAL EFFUSIONS.
[2018-12-22 12:07] LABS: ABG Base Excess -9.3 mmol/L; ABG HCO3 20 mmol/L (21-25); ABG Oxygen Saturation 96.6 % (94-97); ABG PCO2 55 mmHg (35-45); ABG PO2 91 mmHg (83-108); ABG TCO2 21 mmol/L (19-24); Allen Test Performed? Yes
[2018-12-22 12:10] LABS: ABG PH 7.16 (7.35-7.45)
--- NOTE | 2018-12-22 12:30 | CONS ---
CONSULTATION REASON FOR CONSULT: Renal failure. HISTORY OF PRESENT ILLNESS: The patient is a 68-year-old female with a history of coronary artery disease, type 2 diabetes, cardiomyopathy, EF 65-70% on current cardiac echocardiogram. The patient was admitted to the hospital with shortness of breath and volume overload, acute on top of chronic diastolic heart failure. She was diuresed initially. She was maintained on Lasix drip. Serum creatinine has increased from 0.9-1.8 mg/dL today. It looks like patient was started on dobutamine drip and dopamine drip yesterday. She was also maintained on Cozaar. Systolic blood pressure is noted to be low. This morning it was 87 mmHg. Previously she had been at 116-106 mmHg systolic. Lasix has been switched to p.o. The patient has an indwelling Barton catheter. Urine output about 800 mL last 8 hours. The patient is complaining of shortness of breath. She is not sure if she is better than on initial admission. I do see her weight is down quite a bit as compared to her initial admission weight. Patient also had a chest CT angiogram on 12/20/2018 with 100 mL of IV contrast. PAST MEDICAL HISTORY: Significant for atrial fibrillation, CVA/TIA, gastroesophageal reflux disease, hypertension, hyperlipidemia, history of nephrolithiasis, cardiomyopathy, diastolic dysfunction, dilated left atrium, diverticulosis, bradycardia, history of erythema nodosum, depression, posttraumatic stress disorder, osteoarthritis. PAST SURGICAL HISTORY: Pacemaker placement, cardioversion, cardiac cath, left knee arthroplasty with bone graft, colonoscopy, D&Cs. SOCIAL HISTORY: Negative for smoking, drug abuse or alcohol abuse. Meds before admission included digoxin, Lipitor, Lasix, Avapro, Toprol, tramadol. ALLERGIES: Include ASPIRIN, IV CONTRAST, NSAIDS. REVIEW OF SYSTEMS: As per HPI. Other systems negative. EXAMINATION: Patient is comfortable, awake, alert. She is weak, not in any acute distress. Blood pressure this morning 87/54, heart rate 83 per minute, patient is afebrile. Examination of the heart S1, S2. Examination of the lungs, bilateral breath sounds are heard. Abdomen is soft, obese, distended. Examination of lower extremities shows edema with chronic skin changes. There is chronic edema noted which seems to have decreased recently. 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 LAB: Show sodium 141, potassium 5.1, chloride 113, CO2 is 18, BUN 42, serum creatinine 1.8, hemoglobin 13.1 g/dL. UA shows 2+ protein, blood is large, WBCs more than 182. ASSESSMENT: 1. Acute kidney injury, multifactorial, currently nonoliguric secondary to hypotension hypoperfusion as well as recent contrast administration causing some degree of contrast nephropathy. There is also component of cardiorenal syndrome. The patient has diastolic dysfunction. She is maintained on dobutamine and dopamine. Blood pressure remains on the lower side. We need to hold off on the angiotensin receptor blockers and other antihypertensive medications. Potassium is borderline. I will leave the Aldactone on for now and we will repeat labs in a.m. If her urine output remains low we will need to hold off the lactone as she will likely develop hyperkalemia. 2. Acute on top of chronic diastolic heart failure. 3. Mild metabolic acidosis, non gap secondary to renal failure. 4. Pyuria, rule out underlying urine infection. 5. Rule out chronic kidney disease. Patient does have proteinuria. We will need to recheck her urine once the urine is clear. PLAN: 1. DC Cozaar as systolic blood pressure is in the 80s and patient is oliguric. I will add midodrine. Consider discontinuation of dobutamine as ejection fraction is about 65-70 percent. I will discuss with Cardiology. 2. Add oral sodium bicarb if the acidosis is worse. I will hold off on the bicarb for now as it will add a sodium load. 3. Check urine cultures for the pyuria. Avoid any nephrotoxic agents. If serum potassium is higher, we will need to hold off on the Aldactone. Thank you for this consultation. We will continue to follow the patient with you during her hospitalization. MMODL / IJN: [id number] /
[2018-12-22 13:37] LABS: Glucose,Whole Blood 88 mg/dL (75-99)
--- NOTE | 2018-12-22 14:18 | P.PN ---
Subjective Progress Note Date: 12/22/18 Principal diagnosis: Shortness of breath Pt resting in bed this a.m. with mild confusion. She has no current complaints of chest pain, chest pressure or palpitations. Continues with complaints of shortness of breath on 4L NC and with continued oral diuresis. Barton catheter continues to have dark red/tea colored urine. Generalized edema. Low blood pressure, 87/54. Pt refusing to take oral meds at this time. Dobutamine and Dopamine drips continue. No anticoagulation for Atrial Flutter due to GIB HX. Prognosis guarded. WIll follow. PHYSICAL EXAM: VITAL SIGNS: 87/54. HR 85. Tele - atrial flutter GENERAL: Morbid obesity, in no acute distress. HEENT: Head is atraumatic, normocephalic. Pupils are equal, round. Extra ocular movements intact. Mucous membranes moist. Neck supple. No JVD. No carotid bruit. No thyromegaly. LUNGS: CTA in upper lobes but completely diminished at the bases, even with current breathing treatment. No wheezes, rales or rhonchi. No chest wall tenderness on palpation or with deep breathing. HEART: Irregular rate and rhythm, no rubs or gallops. S1 and S2 heard. III/IV systolic murmur. ABDOMEN: Abdominal exam, obese pendulum. Bowel sounds x4 quads. Soft, non- tender, without masses, organomegaly, or abdominal aorta enlargement. EXTREMITIES/VASCULAR: Extremities have easily palpable radial, femoral, dorsalis pedis and posterior tibial pulses. No cyanosis, calf tenderness. 3-4+ BLE edema. NEUROLOGIC: Patient is awake, confused and oriented x1. No focal neurologic abnormalities. Objective - Vital Signs Vital signs: Vital Signs Temp 98.2 F 12/22/18 08:22 Pulse 84 12/22/18 09:04 Resp 28 H 12/22/18 08:22 BP 87/54 12/22/18 08:22 Pulse Ox 95 12/22/18 08:22 Intake & Output 12/21/18 12/22/18 12/22/18 18:59 06:59 18:59 Output Total 200 850 Balance -200 -850 Weight 125.5 kg 123.6 kg Output: Urine 200 850 Other: Voiding Method Indwelling Catheter Indwelling Catheter Indwelling Catheter - Labs CBC & Chem 7: 12/22/18 05:56 12/22/18 05:56 Labs: Abnormal Lab Results - Last 24 Hours (Table) 12/22/18 12/22/18 12/22/18 Range/Units 05:56 05:56 12:03 MCV 101.1 H (80.0-100.0) fL MCHC 29.8 L (31.0-37.0) g/dL RDW 16.9 H (11.5-15.5) % Plt Count 115 L (150-450) k/uL ABG pH 7.16 L* (7.35-7.45) ABG pCO2 55 H (35-45) mmHg ABG HCO3 20 L (21-25) mmol/L Chloride 113 H (98-107) mmol/L Carbon Dioxide 18 L (22-30) mmol/L BUN 42 H (7-17) mg/dL Creatinine 1.80 H (0.52-1.04) mg/dL Glucose 109 H (74-99) mg/dL
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
[2018-12-22] MEDS: traMADol 50 MG TAB PO PRN ×2 (17:12→23:55)
[2018-12-22] MEDS: MIDODRINE 5 MG TAB PO SCH (19:03)
[2018-12-22] MEDS: FUROSEMIDE 10 MG/ML 10 ML VIAL IV SCH (20:01)
[2018-12-22] MEDS: ATORVASTATIN 40 MG TAB PO SCH (20:10)
[2018-12-22] MEDS: DOBUTamine DRIP 500 MG in DEXTROSE/WATER 1 250ML.BAG IV SCH (20:10)
--- NOTE | 2018-12-22 20:12 | P.PN ---
Progress Note - Text Progress Note Date: 12/22/18 Interval history: This is a 68-year-old patient who follows Dr. Cooper. 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 Has a rather extensive medical history. Chronic stable medical conditions include GERD, hyperlipidemia, hypertension, Werner arthritis, had a stroke in 2017 left her with a slow speech, diverticulosis. Patient also has a history of CHF and atrial fibrillation. Patient is chronically short of breath. Put for last few days she's getting more and more short of breath. Slight cough. No sputum production. Some wheezing. No fever no chills. Increasing edema. Decreased appetite. Admitted for the same. Quite a bit short of breath at rest. Admitted with acute CHF exacerbation. Also expressed some suicidal ideation the past. Noticed by the nurse. Psychiatry consultation was done. Seen by psychiatry. Boyce to have PTSD and depression. Patient reluctant to start any antidepressants. On December 21 started on dobutamine drip by cardiology. Today-bit more lethargic. But arousable. Able to answer questions. Patient is refusing oral medications. I did order blood gases. Came back to show elevated pCO2 and a pH of 7.15. Told the nurse to call Dr. Nieves. Patient being moved to ICU. Review of systems: Was done for constitutional, cardiovascular, GI, pulmonary. relevant finding as above Active Medications Acetaminophen (Tylenol Tab) 650 mg PO Q6HR PRN PRN Reason: Fever and/ or Mild Pain Last Admin: 12/22/18 00:17 Dose: 650 mg Documented by: Albuterol/Ipratropium (Duoneb 0.5 Mg-3 Mg/3 Ml Soln) 3 ml INHALATION RT-QID PRN PRN Reason: Shortness Of Breath Or Wheezing Last Admin: 12/22/18 08:51 Dose: 3 ml Documented by: Atorvastatin Calcium (Lipitor) 40 mg PO HS [facility] Last Admin: 12/21/18 21:35 Dose: Not Given Documented by: Digoxin (Lanoxin) 125 mcg PO MoWeFr@0900 [facility] Last Admin: 12/20/18 08:46 Dose: 125 mcg Documented by: Enoxaparin Sodium (Lovenox) 30 mg SQ DAILY [facility] Last Admin: 12/22/18 08:16 Dose: 30 mg Documented by: Furosemide (Lasix) 60 mg IV Q12HR [facility] Last Admin: 12/22/18 20:01 Dose: 60 mg Documented by: Dopamine HCl/Dextrose 800 mg/ (IV Solution) 250 mls @ 5.883 mls/hr IV .Q24H [facility] Last Admin: 12/21/18 13:30 Dose: Not Given Documented by: Dobutamine HCl/Dextrose 500 mg (/ IV Solution) 250 mls @ 9.413 mls/hr IV .Q24H [facility] Last Admin: 12/21/18 17:07 Dose: 2.5 mcg/kg/min, 9.413 mls/hr Documented by: Midodrine (Proamatine) 10 mg PO AC-TID [facility] Last Admin: 12/22/18 19:03 Dose: Not Given Documented by: Spironolactone (Aldactone) 25 mg PO BID [facility] Last Admin: 12/22/18 08:18 Dose: Not Given Documented by: Tramadol HCl (Ultram) 50 mg PO Q6H PRN PRN Reason: Moderate Pain Last Admin: 12/22/18 17:12 Dose: 50 mg Documented by: Physical examination: VITAL SIGNS: 98.2, 85, 28, 87/54, 95% on 4 L GENERAL: Sitting up, lethargic but arousable, on oxygen EYES: Pupils equal. Conjunctiva normal. HEENT: External appearance of nose and ears normal, oral cavity grossly normal. NECK: Short and thick, JVD unable to assess; masses not palpable. HEART: Heart sounds muffled; edema present. LUNGS: Respiratory rate increased; distant breath sounds. ABDOMEN: Soft, nontender, liver spleen not palpable, no masses palpable. PSYCH: Lethargic but arousable can answer questions l. INVESTIGATIONS, reviewed in the clinical context: White count 8.1 hemoglobin 13.1 platelets 115 potassium 5.1 bun 42 creatinine 1.80 bicarb 18 ABGs-pH of 7.16 pCO2 55 bicarb 20 Admission testing Potassium 4.9 bun 23 creatinine 0.91 Lower extremity Doppler-negative Chest CTA-negative for PE 2-D echo-EF 65-70%, moderate concentric left medical hypertrophy, moderate mitral regurgitation, severe tricuspid regurgitation, severe pulmonary hypertension, moderate prolapse of the anterior mitral valve leafle Assessment: -Acute congestive heart failure exacerbation from diastolic dysfunction EF 65- 70%, improved -Acute on chronic cor pulmonale, exacerbation, improved -Severe secondary pulmonary hypertension from CHF -Acute renal failure, prerenal from diuresis, worsening -Acute mixed metabolic and respiratory acidosis -Hypertensive heart disease -Moderate mitral regurgitation, severe tricuspid regurgitation, mitral valve prolapse, nontraumatic -GERD -Hyperlipidemia -Essential hypertension -Primary osteoarthritis -Chronic diverticulosis -Morbid obesity BMI 65.5 -Possibly obesity hypoventilation syndrome -Traumatic hematuria -Depression- -Acute metabolic encephalopathy from electrolyte abnormalities Plan: Patient not doing too well. Patient will be moved to the ICU. I did try to briefly addressed the CODE STATUS with the patient. At this point patient wishes to remain full code. Spoke to the nurse. Patient also put on dopamine drip. Prognosis guarded.
[2018-12-22] MEDS: DEXTROSE/WATER 1 250ML.BAG with DOPamine DRIP 800 MG IV SCH (20:13)
[2018-12-22] MEDS ORDERED: traMADol 50 MG TAB PO STA (21:04)
[2018-12-23 04:49] LABS: Anisocytosis Slight; HCT 42.9 % (34.0-46.0); HGB 12.9 gm/dL (11.4-16.0); Hypochromasia Marked; MCH 29.8 pg (25.0-35.0); MCHC 30.2 g/dL (31.0-37.0); MCV 98.8 fL (80.0-100.0); Macrocytosis Slight; Mean Platelet Volume 9.1; RBC 4.34 m/uL (3.80-5.40); RDW 16.8 % (11.5-15.5); WBC 7.1 k/uL (3.8-10.6)
[2018-12-23 05:10] LABS: Calcium 8.9 mg/dL (8.4-10.2)
[2018-12-23 05:23] LABS: Potassium 5.3 mmol/L (3.5-5.1)
[2018-12-23 06:30] LABS: Platelet Count 82 k/uL (150-450)
[2018-12-23] MEDS: MIDODRINE 5 MG TAB PO SCH ×3 (06:36→17:54)
[2018-12-23] MEDS: IPRATROPIUM-ALBUTEROL 3 ML NEB INHALATION PRN ×2 (07:49→10:55)
--- NOTE | 2018-12-23 07:58 | XR ---
EXAMINATION TYPE: XR chest 1V portable DATE OF EXAM: 12/23/2018 COMPARISON: 12/22/2018 HISTORY: Shortness of breath TECHNIQUE: Single frontal view of the chest is obtained. FINDINGS: There is a trace left pleural effusion that is partially obscured by the patient's multile ad left-sided cardiac device and small right pleural effusion. Bibasilar airspace disease is also aga in seen. Cardiomediastinal silhouette is rotated an enlarged. No sizable pneumothorax. Osseous struct ures appear intact. IMPRESSION: Stable small right and trace left pleural effusion and bibasilar airspace disease. Given the enlarged cardiomediastinal silhouette findings are likely on the basis of congestive heart failu re.
[2018-12-23] MEDS: DIGOXIN 125 MCG TAB PO SCH (09:27)
[2018-12-23] MEDS: FUROSEMIDE 10 MG/ML 10 ML VIAL IV SCH ×2 (09:28→21:09)
[2018-12-23] MEDS: ENOXAPARIN 30 MG/0.3 ML SYRINGE SQ SCH (09:28)
--- NOTE | 2018-12-23 09:32 | PN ---
PROGRESS NOTE PULMONARY/CRITICAL CARE PROGRESS NOTE DATE OF SERVICE: December 23, 2018 This is a 68-year-old female who was admitted on December 19. She came to the ICU on December 22 primarily because of mental status changes and lethargy. Her blood gases at that time showed a pO2 of 91, a pCO2 of 55, and a pH 7.16. The blood gases are consistent with a combined respiratory and metabolic acidosis. Anyway, the patient was placed on BiPAP at 12 and 4 and 35%. I told the nurse this morning to see if we could not transition her to nasal cannula at 2 to 3 L. Currently, she is on dopamine at 2.5 mcg/kg per minute and dobutamine at 2.5 mcg/kg per minute. Her IV is 0.9 at 20 mL an hour. She seems to be doing reasonably well, although it is difficult to assess her with a BiPAP mask in place. Her medical problems include acute exacerbation of chronic congestive heart failure, severe pulmonary hypertension, chronic atrial fibrillation, cardiomyopathy, anxiety/depression, status post pacemaker insertion, GERD, history of CVA, hypertension, hyperlipidemia, morbid obesity, medical debility, gait dysfunction, and medical noncompliance. Her acute hypercapnic respiratory failure is certainly multifactorial in part related to Pickwickian syndrome as well as diastolic congestive heart failure and obesity related restrictive lung disease. Again we will try to transition her over to nasal cannula today. PHYSICAL EXAMINATION: VITAL SIGNS: Current vital signs are reviewed. Her temperature is 97.4, heart rate 85 and irregular, respiratory rate 12, blood pressure 106/85, mean 92 and 3 L saturations is 98%. GENERAL: Appears in no acute distress. Currently with BiPAP mask in place. HEENT: Examination is grossly unremarkable. Mask is noted. NECK: Supple. Full range of motion. No adenopathy or thyromegaly. Neck veins are flat. CARDIOVASCULAR: Examination reveals irregular rhythm and rate. S1, S2 normal. Heart rate about 85 to 90 beats per minute. No distinct murmur noted. No S3, S4. LUNGS: Reveal diminished breath sounds throughout. A few scattered rhonchi. No wheezes or crackles. Breath sounds diminished. ABDOMEN: Obese. Bowel sounds are heard. EXTREMITIES: Are intact. Mild edema noted. No cyanosis or clubbing. SKIN: Without rash. NEUROLOGIC: Examination is difficult to assess. LABS: Labs are reviewed. White count 7.1, hemoglobin 12.9 hematocrit 42.9, platelet count 82,000. The blood gases are noted. Sodium 140, potassium 5.3, chloride 113, CO2 of 14. Anion gap is 13. BUN and creatinine were 45 and 1.72. Chest x-ray shows small bilateral pleural effusions and bibasilar airspace disease. It appears that she probably has evidence of CHF on chest x-ray given her cardiomegaly. Microbiology is currently negative. MEDICATIONS: Medications are reviewed. ASSESSMENT: 1. Acute exacerbation of chronic congestive heart failure, with diastolic dysfunction. 2. No evidence of pulmonary embolism on CT angiogram. 3. Probable congestive heart failure. 4. Severe pulmonary hypertension. 5. Chronic atrial fibrillation. 6. History of gastrointestinal bleed. 7. History of cardiomyopathy, status post pacemaker placement. 8. Anxiety/depression. 9. Gastroesophageal reflux disease. 10.Previous history of cerebrovascular accident. 11.History of hypertension. 12.History of hyperlipidemia. 13.History of morbid obesity. 14.General medical debility. 15.Medical noncompliance. 16.Acute hypercapnic respiratory failure, multifactorial in part related to Pickwickian syndrome, diastolic congestive heart failure, and restrictive lung disease secondary to obesity. PLAN: Currently, the patient will be trialed off the BiPAP to nasal cannula at 2 to 3 L. She continues on dopamine and dobutamine per Cardiology. Repeat blood gas could not be obtained. Additional recommendations and suggestions are forthcoming. We will make sure that she is not on any sedatives, hypnotics, narcotics or tranquilizers, which may affect her respiratory status. Prognosis is guarded. We will continue to follow closely. MMODL / IJN: [id number] /
--- NOTE | 2018-12-23 12:28 | PN ---
PROGRESS NOTE The patient is seen for followup for acute kidney injury. She was transferred to the ICU yesterday afternoon because of hypotension, borderline urine output. Patient remains on dobutamine and dopamine at 2.5 mcg. Urine output seems to have improved. I added midodrine 10 mg t.i.d. The patient's Lasix has been switched to IV. She has put out about 80 to 85 mL of urine per hour. PHYSICAL EXAMINATION: On examination this morning, patient is comfortable. She is not in any acute distress. Blood pressure this morning was 114/61, O2 sats 94% on 3 L nasal cannula. EXAMINATION OF THE HEART: S1, S2. EXAMINATION OF THE LUNGS: Decreased breath sounds at the bases. ABDOMEN: Soft. Morbidly obese. Examination of lower extremities shows chronic skin changes and chronic edema, which seems to have decreased. PAINT GRINDER EXAM: Grossly intact. LAB: Labs show sodium 140, potassium 5.3, chloride 113, CO2 is 14, BUN 45, serum creatinine 1.72. Hemoglobin was 12.9 g/dL. ASSESSMENT: 1. Acute kidney injury, cardiorenal and secondary to hypotension hypoperfusion currently nonoliguric with some improvement in serum creatinine. Continue with the IV Lasix for now. Consider decreasing Lasix to 40 mg q.12 hours depending upon hemodynamic status and respiratory status later this afternoon. 2. Mild hyperkalemia associated with acute kidney injury. Maintain patient off of Aldactone. 3. Metabolic acidosis secondary to renal failure. No ongoing diarrhea noted. Will add sodium bicarb. If her acidosis worsens, I will switch her to IV bicarb. 4. Severe pulmonary hypertension. 5. Severe right-sided heart failure. 6. Acute hypoxic respiratory failure secondary to congestive heart failure. PLAN: Continue with IV Lasix for now. Add oral sodium bicarb. Repeat labs in a.m. Decrease Lasix depending on hemodynamics status and volume status later today. MMODL / IJN: [id number] /
--- NOTE | 2018-12-23 17:04 | P.PN ---
Progress Note - Text Progress Note Date: 12/23/18 Interval history: This is a 68-year-old patient who follows Dr. Cooper. 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 Has a rather extensive medical history. Chronic stable medical conditions include GERD, hyperlipidemia, hypertension, Werner arthritis, had a stroke in 2017 left her with a slow speech, diverticulosis. Patient also has a history of CHF and atrial fibrillation. Patient is chronically short of breath. Put for last few days she's getting more and more short of breath. Slight cough. No sputum production. Some wheezing. No fever no chills. Increasing edema. Decreased appetite. Admitted for the same. Quite a bit short of breath at rest. Admitted with acute CHF exacerbation. Also expressed some suicidal ideation the past. Noticed by the nurse. Psychiatry consultation was done. Seen by psychiatry. [place] to have PTSD and depression. Patient reluctant to start any antidepressants. On December 21 started on dobutamine drip by cardiology. Also put on a dopamine drip.. Patient was moved to the ICU. Today-in the ICU. Remains on dopamine and dobutamine drip.. Some urine output. Nephrology switched and IV bicarbonate. Also on Lasix IV 60 mg every 12. Patient not been wanting to eat her food also refusing her medications. Does feel rather tired. Sleeping most of the time. But arousable. Review of systems: Was done for constitutional, cardiovascular, GI, pulmonary. relevant finding as above Active Medications Acetaminophen (Tylenol Tab) 650 mg PO Q6HR PRN PRN Reason: Fever and/ or Mild Pain Last Admin: 12/22/18 00:17 Dose: 650 mg Documented by: Albuterol/Ipratropium (Duoneb 0.5 Mg-3 Mg/3 Ml Soln) 3 ml INHALATION RT-QID PRN PRN Reason: Shortness Of Breath Or Wheezing Last Admin: 12/23/18 10:55 Dose: 3 ml Documented by: Atorvastatin Calcium (Lipitor) 40 mg PO [facility] Last Admin: 12/22/18 20:10 Dose: Not Given Documented by: Digoxin (Lanoxin) 125 mcg PO [id number] [facility] Last Admin: 12/23/18 09:27 Dose: 125 mcg Documented by: Enoxaparin Sodium (Lovenox) 30 mg SQ DAILY [facility] Last Admin: 12/23/18 09:28 Dose: 30 mg Documented by: Furosemide (Lasix) 60 mg IV Q12HR [facility] Last Admin: 12/23/18 09:28 Dose: 60 mg Documented by: Dopamine HCl/Dextrose 800 mg/ (IV Solution) 250 mls @ 5.883 mls/hr IV .Q24H [facility] Last Admin: 12/22/18 20:13 Dose: 5.883 mls/hr Documented by: Dobutamine HCl/Dextrose 500 mg (/ IV Solution) 250 mls @ 9.413 mls/hr IV .Q24H [facility] Last Admin: 12/22/18 20:10 Dose: 2.5 mcg/kg/min, 9.413 mls/hr Documented by: Midodrine (Proamatine) 10 mg PO AC-TID [facility] Last Admin: 12/23/18 12:19 Dose: 10 mg Documented by: Sodium Bicarbonate (Sodium Bicarbonate Tab) 650 mg PO BID [facility] Tramadol HCl (Ultram) 50 mg PO Q6H PRN PRN Reason: Moderate Pain Last Admin: 12/22/18 23:55 Dose: 50 mg Documented by: Physical examination: VITAL SIGNS: 96.6, 80, 11, 11 6/63, 96% on 3 L GENERAL: Propped up in bed, lethargic but arousable with nasal cannula EYES: Pupils equal. Conjunctiva normal. HEENT: External appearance of nose and ears normal, oral cavity grossly normal. NECK: Short and thick, JVD unable to assess; masses not palpable. HEART: Heart sounds muffled; edema present. LUNGS: Respiratory rate normal; distant breath sounds. ABDOMEN: Soft, nontender, liver spleen not palpable, no masses palpable. PSYCH: Lethargic but arousable can answer questions . INVESTIGATIONS, reviewed in the clinical context: White count 7.1 hemoglobin 12.9 platelets 82 potassium 5.3 bun 45 creatinine 1.72, bicarb 14 Admission testing Potassium 4.9 bun 23 creatinine 0.91 Lower extremity Doppler-negative Chest CTA-negative for PE 2-D echo-EF 65-70%, moderate concentric left medical hypertrophy, moderate mitral regurgitation, severe tricuspid regurgitation, severe pulmonary hypertension, moderate prolapse of the anterior mitral valve leafle Assessment: -Acute congestive heart failure exacerbation from diastolic dysfunction EF 65- 70%, slowly improving, remains on IV Lasix -Acute on chronic cor pulmonale, exacerbation, slowly improving -Severe secondary pulmonary hypertension from CHF -Acute renal failure, prerenal from diuresis, not improving, admission creatinine was normal at 0.91 -Acute mixed metabolic and respiratory acidosis -Hypertensive heart disease -Moderate mitral regurgitation, severe tricuspid regurgitation, mitral valve prolapse, nontraumatic -GERD -Hyperlipidemia -Essential hypertension -Primary osteoarthritis -Chronic diverticulosis -Morbid obesity BMI 65.5 -Possibly obesity hypoventilation syndrome -Traumatic hematuria -Depression- -Acute metabolic encephalopathy from electrolyte abnormalities -Medical deconditioning, worsening Plan: I did talk to the patient at length. Did reinforce the fact that she has to take her medicines and food otherwise she's she is getting progressively get much worse and deconditioning. Patient did express that she understands. Patient is agreeable to eat her food with assistance. Did speak to nurse Mathias. Prognosis guarded.
[2018-12-23] MEDS: DEXTROSE/WATER 1 250ML.BAG with DOPamine DRIP 800 MG IV SCH (19:30)
--- NOTE | 2018-12-23 20:46 | PN ---
PROGRESS NOTE This lady has severe pulmonary hypertension, right heart failure, chronic atrial fibrillation and also a biventricular ICD. She was transferred to the ICU yesterday because of both dopamine and dobutamine drips, low urine output. With the addition of dopamine and dobutamine drip, her urine output has improved. She looks clinically somewhat better, more stable than yesterday. She is making urine. Her potassium is high. I will discontinue Aldactone. Her vitals are stable today. There is JVD of 1 to 2 cm. No carotid bruit, S1, S2 heard normally. Systolic murmur is audible at the left lower sternal border. Lungs reveal diminished air entry. Abdomen is distended. Lower extremity edema has improved. RECOMMENDATIONS: I am recommending that we continue dopamine and dobutamine at 2.5 mcg and also discontinue Aldactone. Urine output is good. We will continue current management. Prognosis remains guarded. MMODL / IJN: [id number] /
[2018-12-23] MEDS: traMADol 50 MG TAB PO PRN (21:06)
[2018-12-23] MEDS: ATORVASTATIN 40 MG TAB PO SCH (21:09)
[2018-12-23] MEDS: SODIUM BICARBONATE TAB 650 MG TAB PO SCH (21:11)
[2018-12-23 22:29] LABS: ABG Base Excess -5.5 mmol/L; ABG HCO3 21 mmol/L (21-25); ABG Oxygen Saturation 93.4 % (94-97); ABG PCO2 44 mmHg (35-45); ABG PH 7.29 (7.35-7.45); ABG PO2 68 mmHg (83-108); ABG TCO2 23 mmol/L (19-24); Allen Test Performed? Yes
[2018-12-23] MEDS: DOBUTamine DRIP 500 MG in DEXTROSE/WATER 1 250ML.BAG IV SCH (22:50)
[2018-12-24] MEDS: traMADol 50 MG TAB PO PRN (05:06)
[2018-12-24 06:09] LABS: Anisocytosis Slight; HCT 45.9 % (34.0-46.0); HGB 13.5 gm/dL (11.4-16.0); Hypochromasia Marked; MCH 30.1 pg (25.0-35.0); MCHC 29.5 g/dL (31.0-37.0); Macrocytosis Moderate; Mean Platelet Volume 9.1; RDW 16.9 % (11.5-15.5); WBC 6.8 k/uL (3.8-10.6)
[2018-12-24 06:19] LABS: Platelet Count 98 k/uL (150-450)
[2018-12-24 06:22] LABS: Calcium 9.1 mg/dL (8.4-10.2); Potassium 4.7 mmol/L (3.5-5.1)
[2018-12-24] MEDS: MIDODRINE 5 MG TAB PO SCH ×3 (06:38→17:50)
[2018-12-24 07:03] LABS: Albumin 3.9 g/dL (3.5-5.0); Total Bilirubin 1.3 mg/dL (0.2-1.3); Total Protein 6.8 g/dL (6.3-8.2)
--- NOTE | 2018-12-24 07:29 | PN ---
PROGRESS NOTE PULMONARY/CRITICAL CARE PROGRESS NOTE DATE OF SERVICE: December 24, 2018 This is a 68-year-old female who was admitted back on December 19. She came to the ICU on the because of mental status changes and lethargy. At that time, blood gases showed a pO2 of 91, a pCO2 of 55, and a pH of 7.16. Blood gases are consistent with a combined respiratory and metabolic acidosis. Anyway, the patient was placed on BiPAP at 12 and 4 and 35%. The patient was transitioned over to nasal cannula at 4 L. She remains on dopamine at 2.5 mcg/kg per minute and dobutamine at 2.5 mcg/kg per minute as per Cardiology. Her saline IV is running at 20 mL an hour. I did tell the nurse to make sure all sedatives, hypnotics, tranquilizers and narcotics were discontinued as last night, her mental status really worsened. This morning, she seemed to be much more awake and alert. In addition to the above, she has a history of congestive heart failure, severe pulmonary hypertension, chronic atrial fibrillation, cardiomyopathy, anxiety/depression, status post pacemaker insertion, GERD, history of CVA, hypertension, hyperlipidemia, morbid obesity, general medical debility, gait dysfunction, and medical noncompliance. Her hypercapnic respiratory failure is multifactorial in part related to Pickwickian syndrome as well as diastolic heart failure and restrictive lung disease secondary to obesity. PHYSICAL EXAMINATION: VITAL SIGNS: Current vital signs are reviewed. Her temperature is 96.9, heart rate 98, respiratory rate 16, blood pressure 122/62, mean 82, saturations are 96% on 4 L. GENERAL: Appears in no acute distress. HEENT: Examination is grossly unremarkable. Mucous membranes are moist. Nasal O2 noted. NECK: Supple. Full range of motion. No adenopathy. Neck veins are flat. CARDIOVASCULAR: Examination reveals irregular rhythm and rate. Heart rate 98 beats per minute. The patient is clearly in atrial fibrillation. S1, S2 normal. No distinct murmur noted. LUNGS: Reveal a few scattered rhonchi. No wheezes or crackles. Breath sounds are equal bilaterally. ABDOMEN: Obese. Bowel sounds are heard. EXTREMITIES: Are intact. There is mild edema. SKIN: Without rash. NEUROLOGIC: Examination is difficult to assess but she does appear to be alert and oriented. She does move all 4 extremities. Microbiology is showing gram-negative bacilli in the urine. LABS: Labs are reviewed. White count 6.8, hemoglobin 13.5, hematocrit 45.9, platelet count 98,000. Repeat blood gases last night show pO2 of 68, a pCO2 of 44, and a pH of 7.29, certainly much improved over her initial blood gases. Sodium 140, potassium 4.7, chloride 110, CO2 is 20. Anion gap is 10. BUN and creatinine were 44 and 1.53. Chest x-ray done this morning, not yet officially read, shows some fluid in the right chest. There is a right pleural effusion. The patient is rotated. There may be some basilar atelectasis or infiltrate. MEDICATIONS: Medications are reviewed. She remains on Tylenol, Lipitor, dopamine, digoxin, dobutamine, Lovenox, Lasix, updrafts, metoprolol, midodrine, and sodium bicarbonate tablets. ASSESSMENT: 1. Acute exacerbation of chronic congestive heart failure with diastolic dysfunction. 2. No evidence of pulmonary embolism on CT angiogram. 3. Congestive heart failure. 4. Severe pulmonary hypertension. 5. Chronic atrial fibrillation. 6. History of gastrointestinal bleed. 7. History of cardiomyopathy, status post pacemaker placement. 8. Anxiety/depression. 9. Gastroesophageal reflux disease. 10.Previous history of cerebrovascular accident. 11.History of hypertension. 12.Hyperlipidemia. 13.Morbid obesity. 14.General medical debility. 15.Medical noncompliance. 16.Hypercapnic respiratory failure, multifactorial, in part related to Pickwickian syndrome, diastolic congestive heart failure, and restrictive lung disease secondary to obesity. 17.Rule out urinary tract infection with gram negatives, identification pending. 18.Renal insufficiency. PLAN: The patient's medications are reviewed. She is currently not on any antibiotics. I will add an antibiotic for potential urinary tract infection. I probably will add some Rocephin. Otherwise, the patient seems to be doing better. Her blood gases certainly were improved. Her medications are reviewed. Everything seems to be appropriate. Hopefully, we will be able to wean off the dobutamine and dopamine. Code status needs to be addressed again. Prognosis is guarded. We will continue to follow. No additional recommendations are made. Will await identification and sensitivities on the gram-negative in her urine. MMODL / IJN: [id number] /
[2018-12-24] MEDS: FUROSEMIDE 10 MG/ML 10 ML VIAL IV SCH ×2 (08:15→21:16)
[2018-12-24] MEDS: ENOXAPARIN 30 MG/0.3 ML SYRINGE SQ SCH (08:15)
[2018-12-24] MEDS: METOPROLOL TARTRATE 25 MG TAB PO SCH ×2 (08:17→21:17)
[2018-12-24] MEDS: SODIUM BICARBONATE TAB 650 MG TAB PO SCH ×2 (08:17→21:18)
--- NOTE | 2018-12-24 08:24 | XR ---
EXAMINATION TYPE: XR chest 1V portable DATE OF EXAM: 12/24/2018 COMPARISON: 12/23/2018 HISTORY: Congestive heart failure. Follow-up exam. TECHNIQUE: Single frontal view of the chest is obtained. FINDINGS: Similar fluid overload is seen with small layering right pleural effusion and associated a irspace disease and trace left pleural effusion. Cardiomediastinal silhouette is enlarged and shifted to the right secondary to patient rotation. Right minor fissural fluid is also noted. Multilead left -sided cardiac device is seen. No acute osseous pathology. IMPRESSION: Stable cardiogenic fluid overload with small layering right pleural effusion and associa eddie airspace disease and trace left pleural effusion.
[2018-12-24] MEDS ORDERED: cefTRIAXone 1,000 MG VIAL (IM USE) IM SCH (09:00)
[2018-12-24] MEDS: SODIUM CHLORIDE 0.9% 500 ML 500 ML IV SCH ×2 (09:39→21:15)
--- NOTE | 2018-12-24 10:21 | PN ---
PROGRESS NOTE Mrs. Sheppard has a right heart failure, probable sleep apnea syndrome, chronic atrial fibrillation. She is making urine. Dopamine and dobutamine drips are at 2.5 mcg. I will add a small dose of Lopressor provided the heart rate and blood pressure are acceptable. Urine output has improved a lot. Vitals are stable today. She is on midodrine. S1, S2 heard normally, but irregular rate and rhythm. Short systolic murmur noted. Lungs reveal improved air entry. Abdomen is distended. Bowel sounds are diminished. Lower extremities reveal diminished pulses. No significant edema. Plan is to continue current medical regimen. Add a small dose of Lopressor if she tolerates. MMODL / IJN: [id number] /
--- NOTE | 2018-12-24 16:03 | PN ---
PROGRESS NOTE Patient is seen for followup for acute kidney injury which is mainly cardiorenal as well as secondary to hypotension and hypoperfusion. Urine output has picked up. Patient remains on dobutamine and dopamine. Her creatinine is down to 1.53. Patient is maintained on Lasix 60 mg IV q.12 hours. Overall she is much better. Her mentation has improved as well. On examination this morning, blood pressure was 139/90, heart rate of 87 per minute. She is afebrile. EXAMINATION OF THE HEART: S1 and S2. EXAMINATION OF LUNGS: Bilateral breath sounds are heard. ABDOMEN: Soft, non-tender. Morbidly obese. Examination of lower extremities shows chronic skin changes. Chronic edema is noted. DIRECTOR PAYMENT exam is grossly intact. Labs show sodium 140, potassium 4.7, BUN 44, creatinine 1.53, hemoglobin 13.5 g/dL. ASSESSMENT: 1. Acute kidney injury, cardiorenal as well as secondary to hypotension and hypoperfusion, currently improving. We can discontinue the dopamine, as blood pressure is currently on the higher side. 2. Non-gap metabolic acidosis secondary to renal failure, maintained on oral sodium bicarb and improved. 3. Severe right-sided heart failure. 4. Severe pulmonary hypertension. 5. Morbid obesity. PLAN: Continue with IV Lasix. Recommend discontinuation of dopamine. Repeat labs in a.m. Continue to avoid nephrotoxic agents. MMODL / IJN: [id number] /
--- NOTE | 2018-12-24 17:24 | P.PN ---
Progress Note - Text Progress Note Date: 12/24/18 Interval history: This is a 68-year-old patient who follows Dr. Cooper. 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 Has a rather extensive medical history. Chronic stable medical conditions include GERD, hyperlipidemia, hypertension, Werner arthritis, had a stroke in 2017 left her with a slow speech, diverticulosis. Patient also has a history of CHF and atrial fibrillation. Patient is chronically short of breath. Put for last few days she's getting more and more short of breath. Slight cough. No sputum production. Some wheezing. No fever no chills. Increasing edema. Decreased appetite. Admitted for the same. Quite a bit short of breath at rest. Admitted with acute CHF exacerbation. Also expressed some suicidal ideation the past. Noticed by the nurse. Psychiatry consultation was done. Seen by psychiatry. [place] to have PTSD and depression. Patient reluctant to start any antidepressants. On December 21 started on dobutamine drip by cardiology. Also put on a dopamine drip.. Patient was moved to the ICU. Today-in the ICU. Patient remains on dobutamine and dopamine drip. Up in a chair. Tired. Oral intake variable. Tired. Still lethargic. But able to answer questions. Has been over 5 L in negative fluid balance last 2 days Review of systems: Was done for constitutional, cardiovascular, GI, pulmonary. relevant finding as above Active Medications Acetaminophen (Tylenol Tab) 650 mg PO Q6HR PRN PRN Reason: Fever and/ or Mild Pain Last Admin: 12/22/18 00:17 Dose: 650 mg Documented by: Albuterol/Ipratropium (Duoneb 0.5 Mg-3 Mg/3 Ml Soln) 3 ml INHALATION RT-QID PRN PRN Reason: Shortness Of Breath Or Wheezing Last Admin: 12/23/18 10:55 Dose: 3 ml Documented by: Atorvastatin Calcium (Lipitor) 40 mg PO HS [facility] Last Admin: 12/23/18 21:09 Dose: 40 mg Documented by: Digoxin (Lanoxin) 125 mcg PO [id number] [facility] Last Admin: 12/23/18 09:27 Dose: 125 mcg Documented by: Enoxaparin Sodium (Lovenox) 30 mg SQ DAILY [facility] Last Admin: 12/24/18 08:15 Dose: 30 mg Documented by: Furosemide (Lasix) 60 mg IV Q12HR [facility] Last Admin: 12/24/18 08:15 Dose: 60 mg Documented by: Dopamine HCl/Dextrose 800 mg/ (IV Solution) 250 mls @ 5.883 mls/hr IV .Q24H [facility] Last Admin: 12/23/18 19:30 Dose: 5.883 mls/hr Documented by: Dobutamine HCl/Dextrose 500 mg (/ IV Solution) 250 mls @ 9.413 mls/hr IV .Q24H [facility] Last Admin: 12/23/18 22:50 Dose: 2.5 mcg/kg/min, 9.413 mls/hr Documented by: Ceftriaxone Sodium 1 gm/ (Sodium Chloride) 50 mls @ 100 mls/hr IVPB Q24HR [facility] Last Admin: 12/24/18 09:21 Dose: 100 mls/hr Documented by: Sodium Chloride (Saline 0.9%) 500 mls @ 20 mls/hr IV .Q24H [facility] Last Admin: 12/24/18 09:39 Dose: 20 mls/hr Documented by: Metoprolol Tartrate (Lopressor) 25 mg PO BID [facility] Last Admin: 12/24/18 08:17 Dose: 25 mg Documented by: Midodrine (Proamatine) 10 mg PO AC-TID [facility] Last Admin: 12/24/18 12:48 Dose: 10 mg Documented by: Sodium Bicarbonate (Sodium Bicarbonate Tab) 650 mg PO BID [facility] Last Admin: 12/24/18 08:17 Dose: 650 mg Documented by: Physical examination: VITAL SIGNS: 98.6, 93, 22, 127/92, 93% on 4 L GENERAL: Sitting up in a easy chair tired but awake EYES: Pupils equal. Conjunctiva normal. HEENT: External appearance of nose and ears normal, oral cavity grossly normal. NECK: Short and thick, JVD unable to assess; masses not palpable. HEART: Heart sounds muffled; edema present. LUNGS: Respiratory rate increased distant breath sounds. ABDOMEN: Soft, nontender, liver spleen not palpable, no masses palpable. Barton catheter. PSYCH: Tired but able to answer questions INVESTIGATIONS, reviewed in the clinical context: 16.8 hemoglobin 13.5 potassium 4.7 bun 44 creatinine 1.53 Admission testing Potassium 4.9 bun 23 creatinine 0.91 Lower extremity Doppler-negative Chest CTA-negative for PE 2-D echo-EF 65-70%, moderate concentric left medical hypertrophy, moderate mitral regurgitation, severe tricuspid regurgitation, severe pulmonary hypertension, moderate prolapse of the anterior mitral valve leafle Assessment: -Acute congestive heart failure exacerbation from diastolic dysfunction EF 65- 70%, slow to respond, remains on IV Lasix IV dobutamine and dopamine. -Acute on chronic cor pulmonale, exacerbation, slow to respond -Severe secondary pulmonary hypertension from CHF -Acute renal failure, prerenal from diuresis, cardiorenal, not improving, admission creatinine was normal at 0.91 -Acute mixed metabolic and respiratory acidosis -Hypertensive heart disease -Moderate mitral regurgitation, severe tricuspid regurgitation, mitral valve prolapse, nonrheumatic -GERD -Hyperlipidemia -Essential hypertension -Primary osteoarthritis -Chronic diverticulosis -Morbid obesity BMI 65.5 -Possibly obesity hypoventilation syndrome -Traumatic hematuria -Depression- -Acute metabolic encephalopathy from electrolyte abnormalities -Medical deconditioning, worsening Plan: Continue patient on IV Lasix, IV dobutamine, IV dopamine. Following that less closely. Prognosis guarded. Remains in ICU.
[2018-12-24] MEDS: ATORVASTATIN 40 MG TAB PO SCH (21:17)
[2018-12-25] MEDS: DEXTROSE/WATER 1 250ML.BAG with DOPamine DRIP 800 MG IV SCH ×2 (03:53→17:40)
[2018-12-25] MEDS: DOBUTamine DRIP 500 MG in DEXTROSE/WATER 1 250ML.BAG IV SCH ×2 (03:53→17:40)
[2018-12-25 05:36] LABS: Anisocytosis Slight; HGB 13.4 gm/dL (11.4-16.0); Hypochromasia Moderate; MCH 30.1 pg (25.0-35.0); MCHC 31.2 g/dL (31.0-37.0); Mean Platelet Volume 8.1; RBC 4.45 m/uL (3.80-5.40); RDW 16.3 % (11.5-15.5); WBC 6.7 k/uL (3.8-10.6)
[2018-12-25 05:39] LABS: MCV 96.6 fL (80.0-100.0)
[2018-12-25 05:43] LABS: Calcium 8.9 mg/dL (8.4-10.2); Potassium 4.2 mmol/L (3.5-5.1)
[2018-12-25 05:56] LABS: Platelet Count 97 k/uL (150-450)
--- NOTE | 2018-12-25 07:34 | PN ---
PROGRESS NOTE PULMONARY/CRITICAL CARE PROGRESS NOTE: DATE OF SERVICE: December 25, 2018 This is a 68-year-old female who was admitted back on December 19. She came to the ICU on the because of mental status changes and lethargy. At that time her blood gases revealed a metabolic and a respiratory acidosis with her pCO2 being 55 and a pH being 7.16. The patient was placed on BiPAP at 12 and 4 and 35% and more recently has transitioned over to nasal prongs at 4 L. She remains on 0.9 at 20 mL an hour. She is getting dopamine at 2.5 mcg/kg per minute dobutamine at 2.5 mcg/kg per minute. Her chest x-ray continues to show worsening volume status. She is diuresing well. Over the last 4 or 5 days, she is minus 6 L. Klebsiella pneumoniae was found in her urine, which is sensitive to the Rocephin that she is on. She has a number of medical problems that has been delineated in my notes ongoing. Her dopamine and dobutamine are being managed by Cardiology. I am not sure what the endpoint is. The patient herself is doing reasonably well. She is lying flat in bed. Does not appear to be in any respiratory distress. Is not moving about very much though. PHYSICAL EXAMINATION: VITAL SIGNS: Current vital signs include a temperature 98.5, heart rate 87, respiratory rate 16, blood pressure 97/77, and saturations are 97% on 4 L. GENERAL: Appears in no acute distress. HEENT: Examination is grossly unremarkable. Nasal prongs noted. NECK: Supple. Full range of motion. No adenopathy or thyromegaly. Neck veins are flat. CARDIOVASCULAR: Examination reveals a regular rhythm rate. Heart rate about 85 to 90 beats per minute. It is hard to tell if she is in atrial fibrillation or is just the sinus rhythm with premature beats. No clear-cut murmur. Heart sounds are distant. LUNGS: Reveal coarse rhonchi. There are some bibasilar crackles. No wheezes. ABDOMEN: Is obese. Bowel sounds are heard. EXTREMITIES: Reveal edema. It is improved. SKIN: Without rash. NEUROLOGIC: Examination is brief but nonfocal. LABS: Labs are reviewed. White count 6.7, hemoglobin 13.4, hematocrit 43, platelet count 97,000. Sodium, potassium normal. Chloride 109, CO2 of 22. Anion gap of 9. BUN and creatinine were 42 and 1.27. Microbiology as I mentioned earlier shows evidence of Klebsiella pneumoniae in the urine. It is sensitive to Rocephin. Chest x-ray has been evaluated. MEDICATIONS: The rest of her medications have been evaluated. ASSESSMENT: 1. Acute exacerbation of chronic congestive heart failure with diastolic dysfunction. 2. No evidence of pulmonary embolism on CT angiogram. 3. Severe pulmonary hypertension. 4. Chronic atrial fibrillation. 5. History of gastrointestinal bleed. 6. History of cardiomyopathy, status post pacemaker placement. 7. Anxiety/depression. 8. Gastroesophageal reflux disease. 9. Previous history of cerebrovascular accident. 10.History of hypertension. 11.Hyperlipidemia. 12.Morbid obesity. 13.General medical debility. 14.Medical noncompliance. 15.Hypercapnic respiratory failure, multifactorial, in part related to Pickwickian syndrome, diastolic congestive heart failure, and restrictive lung disease secondary to obesity. 16.Klebsiella pneumoniae urinary tract infection. 17.Renal insufficiency. PLAN: Currently, the patient is receiving appropriate medications. Cardiology is managing for dopamine and dobutamine. We will continue to follow. She is on Rocephin for a Klebsiella pneumoniae urinary tract infection. Chest x-ray continues to show diffuse bilateral infiltrates consistent with fluid overload. She is still a FULL CODE. That needs to be addressed in my opinion. Her overall prognosis remains poor. We will continue to follow. MMODL / IJN: [id number] /
[2018-12-25] MEDS: MIDODRINE 5 MG TAB PO SCH ×4 (08:16→17:41)
[2018-12-25] MEDS: SODIUM BICARBONATE TAB 650 MG TAB PO SCH ×3 (08:16→20:40)
[2018-12-25] MEDS: ENOXAPARIN 30 MG/0.3 ML SYRINGE SQ SCH ×2 (08:17→08:22)
[2018-12-25] MEDS: METOPROLOL TARTRATE 25 MG TAB PO SCH ×4 (08:17→20:39)
[2018-12-25] MEDS: FUROSEMIDE 10 MG/ML 10 ML VIAL IV SCH ×3 (08:17→20:40)
[2018-12-25] MEDS: DIGOXIN 125 MCG TAB PO SCH ×3 (08:17→11:06)
--- NOTE | 2018-12-25 08:38 | XR ---
EXAMINATION TYPE: XR chest 1V portable DATE OF EXAM: 12/25/2018 COMPARISON: 12/24/2018 HISTORY: Adventitious breath sounds returned as of breath. TECHNIQUE: Single frontal view of the chest is obtained. FINDINGS: Cardiomediastinal silhouette is again markedly enlarged and rotated secondary to patient p ositioning. Increasing right pleural effusion now moderate and persistent trace left pleural effusion . Right minor fissural fluid is seen. Minimal pulmonary vascular congestion. No acute osseous patholo gy. No sizable pneumothorax. IMPRESSION: Slightly worsening moderate right pleural effusion and persistent trace left pleural eff usion with mild pulmonary vascular congestion, cardiogenic fluid overload sequela.
--- NOTE | 2018-12-25 11:00 | PN ---
PROGRESS NOTE Mrs. Sheppard has chronic pulmonary hypertension with sleep apnea syndrome. She has chronic atrial fibrillation and also Bi V pacemaker. On a dobutamine and dopamine drip, she is doing better. She is putting out urine, hemodynamically stable. Blood pressure is decent. Tolerating the beta blockers well. Vitals are stable. Blood pressure 120/70, pulse rate of 80 per minute, irregular. JVD of 1 cm. No carotid bruit. S1, S2 heard normally, short systolic murmur is audible at the left sternal border. There are no gallops. Lungs reveal improved air entry. Abdomen is distended, nontender. Lower extremities reveal significant improvement in edema. Plan is to continue the current program of diuresis and dobutamine and dopamine for 1 more day and keep an eye on the electrolytes. Based on the progress tomorrow, we can hopefully change the diuretic regimen. We will increase the patient and increase activity for the patient have her sit up in the chair. MMYOKASTA / ELAINEN: [id number] /
[2018-12-25] MEDS: SODIUM CHLORIDE 0.9% 500 ML 500 ML IV SCH (11:11)
[2018-12-25] MEDS: ACETAMINOPHEN TAB 325 MG TAB PO PRN (19:08)
--- NOTE | 2018-12-25 20:16 | PN ---
PROGRESS NOTE Patient is seen for followup for acute kidney injury, mainly associated with hypotension, some element of contrast nephropathy and cardiorenal syndrome. She currently has been refusing medications this morning. Patient stated that she did not want to take the Lasix. Her renal function has improved significantly. Urine output is improved. Patient remains on IV Lasix 60 mg q.12 hours. Her creatinine is down to 1.27 today. On examination this morning, blood pressure was 132/92, heart rate 90 per minute. She is afebrile. EXAMINATION OF THE HEART: S1 and S2. EXAMINATION OF LUNGS: Decreased breath sounds at bases. ABDOMEN: Soft, obese. Examination of lower extremities shows chronic skin changes. 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 Labs show sodium of 140, potassium 4.2, BUN 42, creatinine 1.27, hemoglobin 13.4. ASSESSMENT: Acute kidney injury secondary to hypotension, contrast nephropathy, cardiorenal syndrome, currently improving. Continue with IV Lasix. I have discussed with the patient that if she wants to stop all medications, then she needs to consider other options like hospice. However, given significant improvement in her overall condition and renal function, she should consider otherwise. Repeat labs in a.m. MMODL / IJN: [id number] /
[2018-12-25] MEDS: ATORVASTATIN 40 MG TAB PO SCH (20:39)
--- NOTE | 2018-12-25 21:00 | P.PN ---
Progress Note - Text Progress Note Date: 12/25/18 Interval history: This is a 68-year-old patient who follows Dr. Cooper. Her rib stiffener and heel dipper Dr. SHELL Dawn. Has a rather extensive medical history. Chronic stable medical conditions include GERD, hyperlipidemia, hypertension, Werner arthritis, had a stroke in 2017 left her with a slow speech, diverticulosis. Patient also has a history of CHF and atrial fibrillation. Patient is chronically short of breath. Put for last few days she's getting more and more short of breath. Slight cough. No sputum production. Some wheezing. No fever no chills. Increasing edema. Decreased appetite. Admitted for the same. Quite a bit short of breath at rest. Admitted with acute CHF exacerbation. Also expressed some suicidal ideation the past. Noticed by the nurse. Psychiatry consultation was done. Seen by psychiatry. Apollo to have PTSD and depression. Patient reluctant to start any antidepressants. On December 21 started on dobutamine drip by cardiology. Also put on a dopamine drip. Today-in the ICU. Patient remains on dobutamine and dopamine drip. Remains on Lasix 60 mg IV every 12. Continues to include negative fluid balance. Patient eating smaller amounts. More awake a bit. Also's questions. Review of systems: Was done for constitutional, cardiovascular, GI, pulmonary. relevant finding as above Active Medications Acetaminophen (Tylenol Tab) 650 mg PO Q6HR PRN PRN Reason: Fever and/ or Mild Pain Last Admin: 12/25/18 19:08 Dose: 650 mg Documented by: Albuterol/Ipratropium (Duoneb 0.5 Mg-3 Mg/3 Ml Soln) 3 ml INHALATION RT-QID PRN PRN Reason: Shortness Of Breath Or Wheezing Last Admin: 12/23/18 10:55 Dose: 3 ml Documented by: Atorvastatin Calcium (Lipitor) 40 mg PO HS [facility] Last Admin: 12/25/18 20:39 Dose: Not Given Documented by: Digoxin (Lanoxin) 125 mcg PO [id number] [facility] Last Admin: 12/25/18 11:06 Dose: 125 mcg Documented by: Enoxaparin Sodium (Lovenox) 30 mg SQ DAILY [facility] Last Admin: 12/25/18 08:22 Dose: Not Given Documented by: Furosemide (Lasix) 60 mg IV Q12HR [facility] Last Admin: 12/25/18 20:40 Dose: 60 mg Documented by: Dopamine HCl/Dextrose 800 mg/ (IV Solution) 250 mls @ 5.883 mls/hr IV .Q24H [facility] Last Admin: 12/25/18 17:40 Dose: Not Given Documented by: Dobutamine HCl/Dextrose 500 mg (/ IV Solution) 250 mls @ 9.413 mls/hr IV .Q24H [facility] Last Admin: 12/25/18 17:40 Dose: Not Given Documented by: Ceftriaxone Sodium 1 gm/ (Sodium Chloride) 50 mls @ 100 mls/hr IVPB Q24HR [facility] Last Admin: 12/25/18 08:17 Dose: 100 mls/hr Documented by: Sodium Chloride (Saline 0.9%) 500 mls @ 20 mls/hr IV .Q24H [facility] Last Admin: 12/25/18 11:11 Dose: Not Given Documented by: Metoprolol Tartrate (Lopressor) 25 mg PO BID [facility] Last Admin: 12/25/18 20:39 Dose: 25 mg Documented by: Midodrine (Proamatine) 10 mg PO AC-TID [facility] Last Admin: 12/25/18 17:41 Dose: Not Given Documented by: Sodium Bicarbonate (Sodium Bicarbonate Tab) 650 mg PO BID [facility] Last Admin: 12/25/18 20:40 Dose: 650 mg Documented by: Physical examination: VITAL SIGNS: 98.8, 90, 19, 129/74, 91% on 5 L GENERAL: EYES: Pupils equal. Conjunctiva normal. HEENT: External appearance of nose and ears normal, oral cavity grossly normal. NECK: Short and thick, JVD unable to assess; masses not palpable. HEART: Heart sounds muffled; edema present. LUNGS: Respiratory rate increased distant breath sounds. ABDOMEN: Soft, nontender, liver spleen not palpable, no masses palpable. Barton catheter. PSYCH: Tired but able to answer questions INVESTIGATIONS, reviewed in the clinical context: Bun 42 creatinine 1.27 potassium 4.2 Admission testing Potassium 4.9 bun 23 creatinine 0.91 Lower extremity Doppler-negative Chest CTA-negative for PE 2-D echo-EF 65-70%, moderate concentric left medical hypertrophy, moderate mitral regurgitation, severe tricuspid regurgitation, severe pulmonary hypertension, moderate prolapse of the anterior mitral valve leafle Assessment: -Acute congestive heart failure exacerbation from diastolic dysfunction EF 65- 70%, slow to respond, remains on IV Lasix IV dobutamine and dopamine. -Acute on chronic cor pulmonale, exacerbation, slow to respond -Severe secondary pulmonary hypertension from CHF -Acute renal failure, prerenal from diuresis, cardiorenal, some improvement, admission creatinine was normal at 0.91 -Acute mixed metabolic and respiratory acidosis -Hypertensive heart disease -Moderate mitral regurgitation, severe tricuspid regurgitation, mitral valve prolapse, nonrheumatic -GERD -Hyperlipidemia -Essential hypertension -Primary osteoarthritis -Chronic diverticulosis -Morbid obesity BMI 65.5 -Possibly obesity hypoventilation syndrome -Traumatic hematuria -Depression- -Acute metabolic encephalopathy from electrolyte abnormalities -Medical deconditioning, worsening Plan: Continue patient on IV Lasix, IV dobutamine, IV dopamine. Discussed with the patient. Prognosis guarded. Making good urine output. Creatinine is actually improving. Remains in the ICU.
[2018-12-26 04:51] LABS: Anisocytosis Slight; HCT 42.2 % (34.0-46.0); HGB 13.3 gm/dL (11.4-16.0); Hypochromasia Slight; MCH 29.5 pg (25.0-35.0); MCHC 31.6 g/dL (31.0-37.0); MCV 93.6 fL (80.0-100.0); Mean Platelet Volume 8.4; Platelet Count 100 k/uL (150-450); RBC 4.51 m/uL (3.80-5.40); RDW 16.4 % (11.5-15.5)
[2018-12-26 05:01] LABS: Potassium 3.8 mmol/L (3.5-5.1)
--- NOTE | 2018-12-26 07:20 | XR ---
EXAMINATION TYPE: XR chest 1V portable DATE OF EXAM: 12/26/2018 CLINICAL HISTORY: Difficulty breathing progress study. TECHNIQUE: Single AP portable upright view of the chest is obtained. COMPARISON: Chest x-ray from one day earlier and older studies. CTA chest 1 week earlier. FINDINGS: Persistent marked cardiomegaly with dual lead pacemaker. Persistent small to moderate size right pleural effusion and associated right basilar atelectasis and/or infiltrate. Osseous structure s are intact. Left lung is clear. IMPRESSION: Overall stable findings, significant cardiomegaly with small to moderate size right ple ural effusion and associated right lower lung atelectasis and/or infiltrate all noted.
[2018-12-26] MEDS: MIDODRINE 5 MG TAB PO SCH ×3 (07:52→18:18)
--- NOTE | 2018-12-26 07:53 | PN ---
PROGRESS NOTE PULMONARY CRITICAL CARE PROGRESS NOTE: DATE OF SERVICE: 12/26/2018 This is a 68-year-old female admitted back on December 19, 2018. She came to the ICU on 12/22 because of mental status changes and lethargy. At that time, blood gases revealed a respiratory and metabolic acidosis. Her pCO2 was 55 and pH of 7.16. She was placed on BiPAP at 12 and 4 and 35% and more recently has been transitioned over to 4 L by nasal cannula. Per Cardiology, she remains on dopamine at 2.5 mcg/kg per minute and dobutamine at 2.5 mcg/kg per minute. Her O2 saturation at 4 L. Her 0.9 IV is at 20 mL an hour. She was discovered to have a Klebsiella pneumoniae urinary tract infection and for that she was on Rocephin. The plan is hopefully to discontinue the cardiotonic agents sometime this morning. She remains a FULL CODE. She feels like she is improving. We would like to see her get out of bed. She denies any chest pain or chest discomfort. She is not short of breath at this time. She has diuresed significantly, more than 6 L. Vital signs are reviewed. Temperature is 98, heart rate 102, respiratory rate 19, blood pressure 116/87 mean 96, saturations are 92%-93% on 4 L. Appears in no acute distress. HEENT: Examination is grossly unremarkable. Mucous membranes are moist. Nasal O2 noted. Neck is supple. Full range of motion. No adenopathy, thyromegaly or neck vein distention. CARDIOVASCULAR: Examination reveals a regular rhythm and rate. She is clearly in atrial fibrillation. Heart rate is hovering right around 100 to 105 beats per minute. No murmur noted. Heart sounds are distant. LUNGS: Reveal a few scattered rhonchi and crackles. Breath sounds are diminished. She does not really take deep breaths. ABDOMEN: Obese. Bowel sounds are heard. EXTREMITIES: Intact. There is edema. SKIN: Without rash. NEUROLOGIC: Examination is brief but nonfocal. LABS: Reviewed. White count 9, hemoglobin 13.3, hematocrit 42.2, platelet count 100,000. Sodium 140, potassium 3.8, chloride is 105, CO2 is 28, anion gap is is 7. BUN and creatinine were 39 and 1.05. Cortisol was 26. Microbiologic study show Klebsiella pneumoniae in the urine. Sensitivities have been checked. Chest x-ray shows diffuse bilateral infiltrates with bilateral pleural effusions. Generally speaking, her chest x-ray has shown improvement. Medications are all reviewed. ASSESSMENT: 1. Acute exacerbation of chronic congestive heart failure with diastolic dysfunction. 2. No evidence of pulmonary embolism on CT angiogram. 3. Severe pulmonary hypertension. 4. Chronic atrial fibrillation. 5. History of gastrointestinal bleed. 6. History of cardiomyopathy, status post pacemaker placement. 7. Anxiety/depression. 8. Gastroesophageal reflux disease. 9. Previous history of cerebrovascular accident. 10.History of hypertension. 11.History of hyperlipidemia. 12.Morbid obesity. 13.General medical debility. 14.Medical noncompliance. 15.Klebsiella pneumoniae urinary tract infection. 16.Hypercapnic respiratory failure, multifactorial in part related to Pickwickian syndrome, diastolic heart failure, and obesity related to restrictive lung disease. 17.Renal insufficiency. PLAN: Hopefully, Cardiology will turn off the dopamine and dobutamine so we can progress this lady. Currently, she is a FULL CODE. Her IV is at 0.9 at 20 mL an hour. She is receiving 4 L nasal cannula. She has been significantly diuresed. Would like to see her, get up out of bed and sit in the chair. Additional recommendations and suggestions are forthcoming. Prognosis is guarded. We will continue to follow. MMODL / IJN: [id number] /
[2018-12-26] MEDS ORDERED: POTASSIUM CHLORIDE ER 20 MEQ TAB.ER PO SCH (08:00)
[2018-12-26] MEDS: METOPROLOL TARTRATE 25 MG TAB PO SCH ×2 (08:02→21:34)
[2018-12-26] MEDS: ENOXAPARIN 30 MG/0.3 ML SYRINGE SQ SCH (08:02)
[2018-12-26] MEDS: SODIUM BICARBONATE TAB 650 MG TAB PO SCH ×2 (08:02→21:34)
[2018-12-26] MEDS: FUROSEMIDE 10 MG/ML 10 ML VIAL IV SCH ×2 (08:02→21:34)
[2018-12-26] MEDS: LOSARTAN 25 MG TAB PO SCH (08:03)
--- NOTE | 2018-12-26 08:13 | PN ---
PROGRESS NOTE Mrs. Sheppard has right heart failure, pulmonary hypertension with history of obstructive sleep apnea syndrome. In addition, she has renal failure secondary to hypovolemia and decreased cardiac output, but this has improved. She has chronic atrial fibrillation. With a combination of dopamine and dobutamine drip, she has improved a lot. Weight is done. Fluid is out. Creatinine has improved. I will discontinue both the dopamine and dobutamine and will place her on 12.5 mg of losartan, increase activity and move her to telemetry. Vitals are stable. Urine output is excellent. Weight is down. JVD is 1 cm. No carotid bruit. S1, S2 heard normally, short systolic murmur is audible at left lower sternal border. No gallops. Lungs reveal improved air entry. Abdomen is soft. Lower extremity edema has almost completely resolved. MMODL / IJN: [id number] /
[2018-12-26] MEDS: ACETAMINOPHEN TAB 325 MG TAB PO PRN ×2 (08:14→23:42)
[2018-12-26] MEDS: SODIUM CHLORIDE 0.9% 500 ML 500 ML IV SCH (08:19)
--- NOTE | 2018-12-26 14:26 | CDI ---
Documentation Clarification Form Date: December 26, 2018 CDS: Meri Kearney, CCS, CCDS Admit Date: 12/19/2018 Patient Name: Ana Sheppard Discharge Date: ATTENTION: The Clinical Documentation Specialists (CDI) and [facility] Coding Staff appreciate your assistance in clarifying documentation. Please respond to the clarification below the line at the bottom and electronically sign. The CDI & [facility] Coding staff will review the response and follow-up if needed. Please note: Queries are made part of the Legal Health Record. If you have any questions, please contact the author of this message via ITS. Dear Dr. Mary Durand: Per Nephrology consult: "Rule out chronic kidney disease. Patient does have proteinuria. We will need to recheck her urine once the urine is clear." History/Risk Factors: GERD, Hyperlipidemia, hypertension, OA, CVA 2017 w/residual slow speech, diverticulosis, CHF, obesity & atrial fibrillation Clinical Indicators: Presented with SOB & decreased appetite. Admitted with acute exacerbation of CHF & OHS. BUN: - - 37 - 42 - 45 - 44 - 42 - 39 Creatinine: (0.91) - 1.52^ - 1.71^ - 1.80^ - 1.72^ - 1.53^ - 1.27^ - 1.05^ GFR: 64 - 35 - 30 - 28 - 30 - 34 - 43 - 54 Treatment: INH Albuterol, IV Benadryl, IV Pepcid, IV Solumedrol, IV Lasix, IV Trandate In order to capture the severity of condition, please clarify if the condition signifies: CKD ruled out CKD ruled in: CKD Stage 1 (GFR > 90) CKD Stage 2 (GFR 60-89) CKD Stage 3 (GFR 30-59) Other, please specify Unable to determine (Last Revision: June 2017) likely stage 3CKD MTDD
--- NOTE | 2018-12-26 16:14 | PN ---
PROGRESS NOTE Patient is seen for followup for acute kidney injury. Renal function has improved significantly. Patient is off the dobutamine and dopamine drips. She has had good urine output. She is maintained on IV Lasix. On examination, blood pressure was 110/72, heart rate 77 per minute. Patient is afebrile. EXAMINATION OF THE HEART: S1 and S2. EXAMINATION OF LUNGS: Bilateral breath sounds are heard. ABDOMEN: Soft, non-tender, obese. Examination of lower extremities shows chronic skin changes. Chronic edema is noted. Labs show sodium 140, potassium 3.8, chloride 105, BUN 39, creatinine 1.05, hemoglobin 13.3 g/dL. ASSESSMENT: 1. Acute kidney injury, component of acute tubular necrosis from contrast nephropathy as well as hypotension, hypoperfusion and cardiorenal syndrome, now improving. Continue with IV Lasix. 2. Severe right-sided heart failure. 3. Hypervolemia and acute on top of chronic congestive heart failure, now improved. Continue with the IV Lasix for now. 4. Morbid obesity. 5. Metabolic acidosis secondary to renal failure, currently improved. PLAN: Repeat labs as outpatient. Avoid nephrotoxic medications. Continue with IV Lasix. MMODL / IJN: [id number] /
[2018-12-26] MEDS: ATORVASTATIN 40 MG TAB PO SCH ×2 (21:34→21:36)
[2018-12-27 05:13] LABS: Anisocytosis Slight; HCT 39.7 % (34.0-46.0); HGB 12.8 gm/dL (11.4-16.0); Hypochromasia Slight; MCH 30.3 pg (25.0-35.0); MCHC 32.2 g/dL (31.0-37.0); Mean Platelet Volume 8.5; Platelet Count 109 k/uL (150-450); RBC 4.22 m/uL (3.80-5.40); WBC 8.3 k/uL (3.8-10.6)
[2018-12-27 05:29] LABS: Calcium 8.6 mg/dL (8.4-10.2); Potassium 3.5 mmol/L (3.5-5.1)
[2018-12-27] MEDS ORDERED: Potassium Replacement Protocol 1 EACH MISC MISCELLANE PRN (06:50)
--- NOTE | 2018-12-27 08:18 | PN ---
PROGRESS NOTE DATE OF SERVICE: December 27, 2018 This is a 68-year-old female who was admitted back on December 19. She initially came to the ICU on the 22 of December with complaints of mental status changes and lethargy. At that time, a blood gas showed both metabolic and respiratory acidosis. Her pCO2 was 55 and a pH was 7.16. She was initially placed on BiPAP at 12 and 4 at 35%. She was transitioned over to nasal O2 at 3 L. She is doing relatively well. Yesterday, her dopamine at 2.5 mcg/kg per minute was discontinued as well dobutamine at 2.5 mcg/kg per minute was discontinued. She was discovered to have a Klebsiella pneumoniae urinary tract infection. Some of her mental status changes could relate to septic encephalopathy. She remains a FULL CODE. She is not getting any additional IV fluids. Her O2 has been titrated down from 4 to 3 L. She is feeling better. She has been diuresed significantly more than 6.5 L. Overall situation has improved. She is much more awake and alert. The patient could be transferred out to the cardiac unit. PHYSICAL EXAMINATION: VITAL SIGNS: Current vital signs are reviewed. Temperature is 97.8, heart rate 87, respiratory rate 22, blood pressure 114/69, mean 84, saturations are in the mid 90s on the 3 L. GENERAL: Appears in no acute distress. Much more awake and alert. No respiratory difficulty. No audible wheezing or use of accessory muscles. No conversational dyspnea. HEENT: Examination is grossly unremarkable. Nasal prongs are noted. NECK: Supple. Full range of motion. No adenopathy or thyromegaly. Neck veins are flat. CARDIOVASCULAR: Examination reveals an irregular rhythm and rate. The patient is clearly in atrial fibrillation. Heart rate in the high 80s and low 90s. No murmur. S1, S2 normal. LUNGS: Reveal a few scattered rhonchi and crackles. Breath sounds have improved. No wheezes. Breath sounds are equal bilaterally. They are diminished throughout. ABDOMEN: Obese. Bowel sounds are heard. EXTREMITIES: Are intact. There is some mild edema. No cyanosis or clubbing. SKIN: Without rash. NEUROLOGIC: Examination is brief but nonfocal. LABS: Labs are reviewed. White count 8.3, hemoglobin 12.8, hematocrit 39.7, platelet count 109,000. Sodium, potassium, chloride normal. CO2 is 32. Anion gap 6. BUN and creatinine were 36 and 0.94. She does have prerenal azotemia from her diuresis. Microbiology as I mentioned was positive for Klebsiella pneumoniae in her urine from December 22. She is being treated for that. Her most recent chest x-ray was done yesterday. It shows stable findings with cardiomegaly and small to moderate right pleural effusion. There is some minimal basilar atelectasis or infiltrate. MEDICATIONS: Medications are reviewed. ASSESSMENT: 1. Acute exacerbation of chronic congestive heart failure with diastolic dysfunction, much improved. 2. No evidence of pulmonary embolism on CT angiogram. 3. Severe pulmonary hypertension. 4. Chronic atrial fibrillation. 5. History of gastrointestinal bleed. 6. History of cardiomyopathy, status post pacemaker placement. 7. History of anxiety/depression. 8. History of gastroesophageal reflux disease. 9. Previous history of cerebrovascular accident. 10.History of hypertension. 11.History of hyperlipidemia. 12.Morbid obesity. 13.General medical debility. 14.Medical noncompliance. 15.Klebsiella pneumoniae urinary tract infection. 16.Renal insufficiency. 17.Hypercapnic respiratory failure, multifactorial, in part related to Pickwickian syndrome, diastolic heart failure, and obesity related to restrictive lung disease. PLAN: The patient is currently off the dopamine and dobutamine. She has been significantly diuresed. She has some mild prerenal azotemia. Chest x-ray is stable to improved. Her oxygenation has improved. Her mental status is vastly improved. We are waiting to transfer her out to the cardiac unit. MMODL / ELAINEN: [id number] /
[2018-12-27] MEDS: ENOXAPARIN 40 MG/0.4 ML SYRINGE SQ SCH (08:22)
[2018-12-27] MEDS: FUROSEMIDE 10 MG/ML 10 ML VIAL IV SCH ×2 (08:22→22:21)
[2018-12-27] MEDS: POTASSIUM CHLORIDE ER 20 MEQ TAB.ER PO SCH ×2 (08:23→08:30)
[2018-12-27] MEDS: MIDODRINE 5 MG TAB PO SCH ×3 (08:24→18:09)
[2018-12-27] MEDS: METOPROLOL TARTRATE 25 MG TAB PO SCH ×2 (08:25→22:20)
[2018-12-27] MEDS: SODIUM BICARBONATE TAB 650 MG TAB PO SCH (08:25)
[2018-12-27] MEDS: LOSARTAN 25 MG TAB PO SCH (08:25)
[2018-12-27] MEDS: DIGOXIN 125 MCG TAB PO SCH (08:25)
[2018-12-27 10:37] VITALS: BMI 60.5
--- NOTE | 2018-12-27 10:44 | P.PN ---
Progress Note - Text Progress Note Date: 12/26/18 Interval history: This is a 68-year-old patient who follows Dr. Cooper. Her benefit director Dr. SHELL Dawn. Has a rather extensive medical history. Chronic stable medical conditions include GERD, hyperlipidemia, hypertension, Werner arthritis, had a stroke in 2017 left her with a slow speech, diverticulosis. Patient also has a history of CHF and atrial fibrillation. Patient is chronically short of breath. Put for last few days she's getting more and more short of breath. Slight cough. No sputum production. Some wheezing. No fever no chills. Increasing edema. Decreased appetite. Admitted for the same. Quite a bit short of breath at rest. Admitted with acute CHF exacerbation. Also expressed some suicidal ideation the past. Noticed by the nurse. Psychiatry consultation was done. Seen by psychiatry. [place] to have PTSD and depression. Patient reluctant to start any antidepressants. On December 21 started on dobutamine drip by cardiology. Also put on a dopamine drip. Today-dopamine and dobutamine drip have been stopped. Feels a bit better. Oral intake improving. More perky.. Review of systems: Was done for constitutional, cardiovascular, GI, pulmonary. relevant finding as above Active Medications Acetaminophen (Tylenol Tab) 650 mg PO Q6HR PRN PRN Reason: Fever and/ or Mild Pain Last Admin: 12/25/18 19:08 Dose: 650 mg Documented by: Albuterol/Ipratropium (Duoneb 0.5 Mg-3 Mg/3 Ml Soln) 3 ml INHALATION RT-QID PRN PRN Reason: Shortness Of Breath Or Wheezing Last Admin: 12/23/18 10:55 Dose: 3 ml Documented by: Atorvastatin Calcium (Lipitor) 40 mg PO HS [facility] Last Admin: 12/25/18 20:39 Dose: Not Given Documented by: Digoxin (Lanoxin) 125 mcg PO MoWeFr@0900 [facility] Last Admin: 12/25/18 11:06 Dose: 125 mcg Documented by: Enoxaparin Sodium (Lovenox) 30 mg SQ DAILY [facility] Last Admin: 12/25/18 08:22 Dose: Not Given Documented by: Furosemide (Lasix) 60 mg IV Q12HR [facility] Last Admin: 12/25/18 20:40 Dose: 60 mg Documented by: Dopamine HCl/Dextrose 800 mg/ (IV Solution) 250 mls @ 5.883 mls/hr IV .Q24H [facility] Last Admin: 12/25/18 17:40 Dose: Not Given Documented by: Dobutamine HCl/Dextrose 500 mg (/ IV Solution) 250 mls @ 9.413 mls/hr IV .Q24H [facility] Last Admin: 12/25/18 17:40 Dose: Not Given Documented by: Ceftriaxone Sodium 1 gm/ (Sodium Chloride) 50 mls @ 100 mls/hr IVPB Q24HR [facility] Last Admin: 12/25/18 08:17 Dose: 100 mls/hr Documented by: Sodium Chloride (Saline 0.9%) 500 mls @ 20 mls/hr IV .Q24H [facility] Last Admin: 12/25/18 11:11 Dose: Not Given Documented by: Metoprolol Tartrate (Lopressor) 25 mg PO BID [facility] Last Admin: 12/25/18 20:39 Dose: 25 mg Documented by: Midodrine (Proamatine) 10 mg PO AC-TID [facility] Last Admin: 12/25/18 17:41 Dose: Not Given Documented by: Sodium Bicarbonate (Sodium Bicarbonate Tab) 650 mg PO BID [facility] Last Admin: 12/25/18 20:40 Dose: 650 mg Documented by: Physical examination: VITAL SIGNS: 98.2, 84, 23, 11 4/69, 94% on 4 L GENERAL: Propped up in bed, awake EYES: Pupils equal. Conjunctiva normal. HEENT: External appearance of nose and ears normal, oral cavity grossly normal. NECK: Short and thick, JVD unable to assess; masses not palpable. HEART: Heart sounds muffled; edema present. LUNGS: Respiratory rate increased distant breath sounds. ABDOMEN: Soft, nontender, liver spleen not palpable, no masses palpable. Barton catheter. PSYCH: Tired but able to answer questions INVESTIGATIONS, reviewed in the clinical context: Potassium 3.5 creatinine 0.94 white count 8.3 Admission testing Potassium 4.9 bun 23 creatinine 0.91 Lower extremity Doppler-negative Chest CTA-negative for PE 2-D echo-EF 65-70%, moderate concentric left medical hypertrophy, moderate mitral regurgitation, severe tricuspid regurgitation, severe pulmonary hypertension, moderate prolapse of the anterior mitral valve leafle Assessment: -Acute congestive heart failure exacerbation from diastolic dysfunction EF 65- 70%, improving slowly, remains on IV Lasix . -Acute on chronic cor pulmonale, exacerbation, improving slowly -Severe secondary pulmonary hypertension from CHF -Acute renal failure, prerenal from diuresis, cardiorenal, some improvement, admission creatinine was normal at 0.91 -Acute mixed metabolic and respiratory acidosis -Hypertensive heart disease -Moderate mitral regurgitation, severe tricuspid regurgitation, mitral valve prolapse, nonrheumatic -GERD -Hyperlipidemia -Essential hypertension -Primary osteoarthritis -Chronic diverticulosis -Morbid obesity BMI 65.5 -Possibly obesity hypoventilation syndrome -Traumatic hematuria -Depression- -Acute metabolic encephalopathy from electrolyte abnormalities, with some improvement -Medical deconditioning, Plan: Remains on IV Lasix. Dopamine and dobutamine have been discontinued by cardiology.. Renal function is improving actually. Patient encouraged again to increase oral intake.
--- NOTE | 2018-12-27 13:44 | PN ---
PROGRESS NOTE This lady has right heart failure, pulmonary hypertension, chronic atrial fib with a wide Bi V pacemaker. She is doing well overall. Urine output is excellent. Blood pressure is maintaining. She is off dopamine and dobutamine for 24 hours and urine output is well maintained. Vital signs stable. S1, S2 heard normally, irregular rate and rhythm noted, short systolic murmur noted. Lungs revealed improved air entry. Abdomen is soft. Lower extremity edema has resolved. I am recommending that we can increase activity and move her to telemetry. She is slightly hypokalemic. I will supplement potassium. MMODL / IJN: [id number] /
--- NOTE | 2018-12-27 17:48 | PN ---
PROGRESS NOTE Patient is seen for followup for acute kidney injury which was multifactorial, including secondary to hypotension, contrast nephropathy and cardiorenal syndrome. Renal function has improved significantly. Serum creatinine is down to 0.9 mg/dL today. Patient has had good urine output. She is maintained on IV Lasix. Overall she is doing much better, with improvement in mentation and volume status as well. On examination this morning, blood pressure was 114/69, heart rate 87 per minute. Patient is afebrile. EXAMINATION OF THE HEART: S1 and S2. EXAMINATION OF LUNGS: Bilateral breath sounds are heard. ABDOMEN: Soft, non-tender. Abdomen is morbidly obese. Examination of lower extremities shows chronic skin changes. Edema is much improved. DIRECTOR MUSIC exam is grossly intact. Labs show sodium 141, potassium 3.5, chloride 103. CO2 is 32. BUN 36, creatinine 0.94. ASSESSMENT: 1. Acute kidney injury, multifactorial, including contrast nephropathy, hypotension, hypoperfusion and cardiorenal syndrome, currently improved. Continue with the IV Lasix for now. 2. Metabolic acidosis initially, currently resolved. I will discontinue the sodium bicarb, particularly as mild mild metabolic alkalosis is expected from diuresis as well. 3. Chronic hypotension, maintained on midodrine. Cortisol level was not low. Status post dopamine and dobutamine. 4. Hyperkalemia initially, currently improved. 5. Severe volume overload, now improved. 6. Severely dilated right ventricle with elevated right heart pressures and severe pulmonary hypertension. 7. Diastolic heart failure. PLAN: Discontinue sodium bicarb. Replace potassium. Repeat labs in a.m. We may continue with the Lasix for now. MMODL / IJN: [id number] /
--- NOTE | 2018-12-27 17:54 | P.PN ---
Progress Note - Text Progress Note Date: 12/27/18 Interval history: This is a 68-year-old patient who follows Dr. Cooper. Her dope worker Dr. SHELL Dawn. Has a rather extensive medical history. Chronic stable medical conditions include GERD, hyperlipidemia, hypertension, Werner arthritis, had a stroke in 2017 left her with a slow speech, diverticulosis. Patient also has a history of CHF and atrial fibrillation. Patient is chronically short of breath. Put for last few days she's getting more and more short of breath. Slight cough. No sputum production. Some wheezing. No fever no chills. Increasing edema. Decreased appetite. Admitted for the same. Quite a bit short of breath at rest. Admitted with acute CHF exacerbation. Also expressed some suicidal ideation the past. Noticed by the nurse. Psychiatry consultation was done. Seen by psychiatry. [place] to have PTSD and depression. Patient reluctant to start any antidepressants. On December 21 started on dobutamine and dopamine drip. Was transferred to the ICU. On December 26 dopamine and dobutamine drip was discontinued. Today-slowly eating small amounts. Remains on IV bolus Lasix. Making good urine output. about 13 L in negative fluid balance. Up in a easy chair. More awake. Review of systems: Was done for constitutional, cardiovascular, GI, pulmonary. relevant finding as above Active Medications Acetaminophen (Tylenol Tab) 650 mg PO Q6HR PRN PRN Reason: Fever and/ or Mild Pain Last Admin: 12/26/18 23:42 Dose: 650 mg Documented by: Albuterol/Ipratropium (Duoneb 0.5 Mg-3 Mg/3 Ml Soln) 3 ml INHALATION RT-QID PRN PRN Reason: Shortness Of Breath Or Wheezing Last Admin: 12/23/18 10:55 Dose: 3 ml Documented by: Atorvastatin Calcium (Lipitor) 40 mg PO HS [facility] Last Admin: 12/26/18 21:36 Dose: Not Given Documented by: Cephalexin (Keflex) 250 mg PO TID [facility] Digoxin (Lanoxin) 125 mcg PO MoWeFr@0900 [facility] Last Admin: 12/27/18 08:25 Dose: 125 mcg Documented by: Enoxaparin Sodium (Lovenox) 40 mg SQ DAILY [facility] Last Admin: 12/27/18 08:22 Dose: 40 mg Documented by: Furosemide (Lasix) 60 mg IV Q12HR [facility] Last Admin: 12/27/18 08:22 Dose: 60 mg Documented by: Losartan Potassium (Cozaar) 12.5 mg PO DAILY [facility] Last Admin: 12/27/18 08:25 Dose: 12.5 mg Documented by: Metoprolol Tartrate (Lopressor) 25 mg PO BID [facility] Last Admin: 12/27/18 08:25 Dose: 25 mg Documented by: Midodrine (Proamatine) 10 mg PO AC-TID [facility] Last Admin: 12/27/18 12:22 Dose: 10 mg Documented by: Miscellaneous Information (Potassium Per Protocol) 1 each MISCELLANE DAILY PRN; Protocol PRN Reason: Per Protocol Physical examination: VITAL SIGNS: 98.7, 22, 128/89, 84% on 4 L GENERAL: Sitting up in a recliner. A bit more awake EYES: Pupils equal. Conjunctiva normal. HEENT: External appearance of nose and ears normal, oral cavity grossly normal. NECK: Short and thick, JVD unable to assess; masses not palpable. HEART: Heart sounds muffled; edema present. LUNGS: Respiratory rate increased distant breath sounds. ABDOMEN: Soft, nontender, liver spleen not palpable, no masses palpable. Barton catheter. PSYCH: Tired but able to answer questions INVESTIGATIONS, reviewed in the clinical context: White count 8.3 hemoglobin 12.8 platelets 109 potassium 3.5 bun 36 creatinine 0.94 Admission testing Potassium 4.9 bun 23 creatinine 0.91 Lower extremity Doppler-negative Chest CTA-negative for PE 2-D echo-EF 65-70%, moderate concentric left medical hypertrophy, moderate mitral regurgitation, severe tricuspid regurgitation, severe pulmonary hypertension, moderate prolapse of the anterior mitral valve leafle Assessment: -Acute congestive heart failure exacerbation from diastolic dysfunction EF 65- 70%, improving slowly, remains on IV Lasix . -Acute on chronic cor pulmonale, exacerbation, improving slowly -Severe secondary pulmonary hypertension from CHF -Acute renal failure, prerenal from diuresis, cardiorenal, some improvement, admission creatinine was normal at 0.91 -Acute mixed metabolic and respiratory acidosis -Hypertensive heart disease -Moderate mitral regurgitation, severe tricuspid regurgitation, mitral valve prolapse, nonrheumatic -GERD -Hyperlipidemia -Essential hypertension -Primary osteoarthritis -Chronic diverticulosis -Morbid obesity BMI 65.5 -Possibly obesity hypoventilation syndrome -Traumatic hematuria -Depression- -Acute metabolic encephalopathy from electrolyte abnormalities, with some improvement -Medical deconditioning, Plan: Remains on IV bolus Lasix. Follow I's closely. Orders have been placed to be moved out of the ICU. Encouraged to increase oral intake. Discharge planning: [facility]
[2018-12-27] MEDS: ATORVASTATIN 40 MG TAB PO SCH (22:20)
[2018-12-27] MEDS: CEPHALEXIN 250 MG CAP PO SCH (22:20)
[2018-12-28 07:22] LABS: Basophils % (A) 0 %; Eosinophils # (A) 0.3 k/uL (0-0.7); Eosinophils % (A) 3 %; HCT 41.8 % (34.0-46.0); Hypochromasia Slight; Lymphocytes # (A) 0.4 k/uL (1.0-4.8); Lymphocytes % (A) 5 %; MCH 29.6 pg (25.0-35.0); MCHC 31.2 g/dL (31.0-37.0); MCV 94.9 fL (80.0-100.0); Mean Platelet Volume 8.9; Monocytes # (A) 0.8 k/uL (0-1.0); Monocytes % (A) 10 %; Neutrophils # (A) 6.5 k/uL (1.3-7.7); Neutrophils % (A) 80 %; Platelet Count 112 k/uL (150-450); RDW 15.9 % (11.5-15.5); WBC 8.2 k/uL (3.8-10.6)
[2018-12-28 07:38] LABS: Calcium 8.6 mg/dL (8.4-10.2)
[2018-12-28] MEDS: FUROSEMIDE 10 MG/ML 10 ML VIAL IV SCH ×2 (08:25→21:04)
[2018-12-28] MEDS: MIDODRINE 5 MG TAB PO SCH ×3 (08:26→17:58)
[2018-12-28] MEDS: ENOXAPARIN 40 MG/0.4 ML SYRINGE SQ SCH (08:26)
[2018-12-28] MEDS: LOSARTAN 25 MG TAB PO SCH (08:26)
[2018-12-28] MEDS: METOPROLOL TARTRATE 25 MG TAB PO SCH ×2 (08:26→21:04)
[2018-12-28] MEDS: CEPHALEXIN 250 MG CAP PO SCH ×3 (09:29→21:34)
--- NOTE | 2018-12-28 10:41 | P.PN ---
Subjective Patient is seen in follow-up for acute kidney injury. Renal function has improved since admission. Currently maintained on IV Lasix 60 mg twice daily. Patient has diastolic CHF with moderate mitral regurgitation and severe tricuspid regurgitation and pulmonary hypertension. Dyspnea and edema have both improved. She admits to good urine output. Oral intake is gradually improving. Vital signs are stable. General: The patient appeared well nourished and normally developed. HEENT: Head exam is unremarkable. Neck is without jugular venous distension. LUNGS: Breath sounds decreased. HEART: Rate and Rhythm are regular. First and second heart sounds normal. No murmurs, rubs or gallops. ABDOMEN: Abdominal exam reveals normal bowel sounds. Non-tender. EXTREMITITES: 1+ edema. Objective - Vital Signs Vital signs: Vital Signs Temp 98.2 F 12/28/18 07:00 Pulse 87 12/28/18 07:00 Resp 20 12/28/18 07:00 BP 116/78 12/28/18 07:00 Pulse Ox 96 12/28/18 07:00 Intake & Output 12/27/18 12/28/18 12/28/18 18:59 06:59 18:59 Intake Total 50 Output Total 1750 1600 425 Balance -1700 -1600 -425 Weight 136 kg Intake: IV 50 cefTRIAXone 1 gm In 50 Sodium Chloride 0.9% 50 ml @ 100 mls/hr IVPB Q24HR [facility] Rx#:[id number] Output: Urine 1750 1600 425 Other: Voiding Method Indwelling Catheter Indwelling Catheter Indwelling Catheter # Voids 480 # Bowel Movements 1 - Labs CBC & Chem 7: 12/28/18 06:58 12/28/18 06:58 Labs: Abnormal Lab Results - Last 24 Hours (Table) 12/28/18 12/28/18 Range/Units 06:58 06:58 RDW 15.9 H (11.5-15.5) % Plt Count 112 L (150-450) k/uL Lymphocytes # 0.4 L (1.0-4.8) k/uL Carbon Dioxide 36 H (22-30) mmol/L BUN 34 H (7-17) mg/dL Assessment and Plan Plan: Assessment: 1. Acute kidney injury mostly prerenal secondary to cardiorenal syndrome. Renal function improved. Creatinine 0.94 today. 2. Acute on chronic diastolic CHF with moderate mitral regurgitation, severe tricuspid regurgitation and pulmonary hypertension. 3. Volume overload maintained on diuretics. Improving. 4. Chronic hypotension maintained on midodrine. Status post dopamine and dobutamine. 5. Metabolic acidosis due to acute kidney injury. Resolved. Plan: Maintain IV Lasix 60 mg twice daily. Encourage oral intake. Avoid nephrotoxins. Repeat electrolytes in the morning.
--- NOTE | 2018-12-28 12:28 | P.PN ---
Subjective Progress Note Date: 12/28/18 Principal diagnosis: CHF This is a pleasant 68-year-old female patient with a past medical history significant for chronic diastolic congestive heart failure, valvular heart disea se with known moderate MR and moderate TR, chronic atrial fibrillation, status post pacemaker, as well as obesity, was admitted to the hospital with acute exacerbation of congestive heart failure as well as acute renal failure. On follow-up with her today, she seems to be doing better indeterminable shortness of breath. She denies any chest pain or chest discomfort. The kidney function has been trending in the right direction. She maintain on Lasix at 60 mg twice a day. Nephrology service continued to follow-up with the patient. The plan is to send the patient to extended-care facility probably this coming Sunday. Objective - Vital Signs Vital signs: Vital Signs Temp 98.2 F 12/28/18 07:00 Pulse 87 12/28/18 07:00 Resp 20 12/28/18 07:00 BP 116/78 12/28/18 07:00 Pulse Ox 96 12/28/18 07:00 Intake & Output 12/27/18 12/28/18 12/28/18 18:59 06:59 18:59 Intake Total 50 Output Total 1750 1600 425 Balance -1700 -1600 -425 Weight 136 kg Intake: IV 50 cefTRIAXone 1 gm In 50 Sodium Chloride 0.9% 50 ml @ 100 mls/hr IVPB Q24HR [facility] Rx#:[id number] Output: Urine 1750 1600 425 Other: Voiding Method Indwelling Catheter Indwelling Catheter Indwelling Catheter # Voids 480 # Bowel Movements 1 - Constitutional General appearance: Present: no acute distress - Respiratory Respiratory: bilateral: diminished - Cardiovascular Rhythm: irregularly irregular Heart sounds: normal: S1, S2 - Labs CBC & Chem 7: 12/28/18 06:58 12/28/18 06:58 Labs: Abnormal Lab Results - Last 24 Hours (Table) 12/28/18 12/28/18 Range/Units 06:58 06:58 RDW 15.9 H (11.5-15.5) % Plt Count 112 L (150-450) k/uL Lymphocytes # 0.4 L (1.0-4.8) k/uL Carbon Dioxide 36 H (22-30) mmol/L BUN 34 H (7-17) mg/dL Assessment and Plan Assessment: Assessment #1 congestive heart failure exacerbation secondary to diastole dysfunction #2 chronic atrial fibrillation was controlled heart rate #3 status post by the pacemaker acute renal failure which has improved Plan #1 continue the current medical regimen #2 continue monitoring the kidney function and electrolytes #3 follow-up with the patient
--- NOTE | 2018-12-28 13:28 | PN ---
PROGRESS NOTE DATE OF SERVICE: December 28, 2018 This is a 68-year-old female who was admitted way back on December 19. She initially came into the ICU on the with complaints of mental status changes and lethargy and a blood gas showed metabolic and respiratory acidosis. She was initially treated with BiPAP therapy and then transitioned over to 4 L and 3 L by nasal cannula. Initially, she was on dopamine at 2.5 mcg/kg per minute dobutamine at 2.5 mcg/minute for a number of days. They were eventually weaned off. The patient was also discovered to have a Klebsiella pneumoniae urinary tract infection. Currently, she is doing much better. The patient's overall status is much improved. She was transferred out of the ICU to the floor. She has been diuresed significantly. Her breathing has dramatically improved. Her oxygenation has improved. PHYSICAL EXAMINATION: VITAL SIGNS: Current vital signs reviewed. Temperature 98.2, heart rate 87, respiratory 20, blood pressure 116/78 mean 90 and saturations are 96% on 3 L. GENERAL: Appears in no acute distress. HEENT examination is grossly unremarkable. Mucous membranes are moist. No oral lesions. NECK: Supple. Full range of motion. No adenopathy or thyromegaly. Neck veins are flat. CARDIOVASCULAR examination reveals irregular rhythm rate. She is clearly in atrial fibrillation. Heart rate about 80 beats per minute. S1, S2 normal. No murmur. Heart sounds are distant. LUNGS: Reveal relatively clear breath sounds. A few scattered crackles. No wheezes or rhonchi. ABDOMEN: Obese. Bowel sounds are heard. EXTREMITIES are intact. She does have edema. It is improved. There is also some chronic venous stasis changes and erythema of the lower extremities. SKIN without any significant rash other than areas of ecchymoses. NEUROLOGIC: Examination is nonfocal. LABS: Reviewed. White count 8.2, hemoglobin 13, hematocrit 41.8, platelet count 112,000, sodium 142, potassium 4, chloride 99, CO2 36. Anion gap is 7. BUN and creatinine were 34 and 0.94. The rest of the labs look okay. Microbiology reveals Klebsiella pneumoniae in the urine from December 22. Medications are reviewed. No x-rays to review. ASSESSMENT: 1. Acute exacerbation of chronic congestive heart failure with diastolic dysfunction, much improved. 2. No evidence of pulmonary embolism on CT angiogram. 3. Severe pulmonary hypertension. 4. Chronic atrial fibrillation. 5. History of gastrointestinal bleed. 6. History of cardiomyopathy, status post pacemaker placement. 7. History of anxiety/depression. 8. History of gastroesophageal reflux disease. 9. Previous history of cerebrovascular accident. 10.History of hypertension. 11.History of hyperlipidemia. 12.Morbid obesity. 13.General medical debility. 14.Medical noncompliance. 15.Klebsiella pneumoniae urinary tract infection. 16.Renal insufficiency. 17.Hypercapnic respiratory failure, multifactorial, in part related to Pickwickian syndrome, diastolic heart failure, and obesity related to restrictive lung disease. PLAN: All-in-all, the patient is doing well. She is certainly not ready for discharge. From the pulmonary standpoint, she is much more stable. Her respiratory status has improved dramatically over the last 4 or 5 days. She is currently just on O2 at 3 L. Not using the BiPAP anymore. We will continue to see the patient only as needed. Additional recommendations and suggestions are forthcoming. [id number] / IJN: [id number] /
[2018-12-28] MEDS: ATORVASTATIN 40 MG TAB PO SCH (21:12)
--- NOTE | 2018-12-28 22:49 | P.PN ---
Subjective Progress Note Date: 12/28/18 Principal diagnosis: Acute on Chronic CHF exacerbation is a 68-year-old patient who follows Dr. Cooper. 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 Has a rather extensive medical history. Chronic stable medical conditions include GERD, hyperlipidemia, hypertension, Werner arthritis, had a stroke in 2017 left her with a slow speech, diverticulosis. Patient also has a history of CHF and atrial fibrillation. Patient is chronically short of breath. Put for last few days she's getting more and more short of breath. Slight cough. No sputum production. Some wheezing. No fever no chills. Increasing edema. Decreased appetite. Admitted for the same. Quite a bit short of breath at rest. Admitted with acute CHF exacerbation. Also expressed some suicidal ideation the past. Noticed by the nurse. Psychiatry consultation was done. Seen by psychiatry. [place] to have PTSD and depression. Patient reluctant to start any antidepressants. On December 21 started on dobutamine and dopamine drip. Was transferred to the ICU. On December 26 dopamine and dobutamine drip was d iscontinued. Transfered out of ICU on December 27. On 12/28/18 - Patient is seen on the general medical floors. Patient states that she is short of breath. She still continues to be on IV Lasix. Overall the patient states that she is doing much better. She denies having any chest pain or palpitations. Still has mild swelling of her lower extremities. She denies having any abdominal pain nausea vomiting or diarrhea. Active Medications Acetaminophen (Tylenol Tab) 650 mg PO Q6HR PRN PRN Reason: Fever and/ or Mild Pain Last Admin: 12/26/18 23:42 Dose: 650 mg Documented by: Albuterol/Ipratropium (Duoneb 0.5 Mg-3 Mg/3 Ml Soln) 3 ml INHALATION RT-QID PRN PRN Reason: Shortness Of Breath Or Wheezing Last Admin: 12/23/18 10:55 Dose: 3 ml Documented by: Atorvastatin Calcium (Lipitor) 40 mg PO HS [facility] Last Admin: 12/28/18 21:12 Dose: Not Given Documented by: Cephalexin (Keflex) 250 mg PO TID [facility] Last Admin: 12/28/18 21:34 Dose: 250 mg Documented by: Digoxin (Lanoxin) 125 mcg PO MoWeFr@0900 [facility] Last Admin: 12/27/18 08:25 Dose: 125 mcg Documented by: Enoxaparin Sodium (Lovenox) 40 mg SQ DAILY [facility] Last Admin: 12/28/18 08:26 Dose: 40 mg Documented by: Furosemide (Lasix) 60 mg IV Q12HR [facility] Last Admin: 12/28/18 21:04 Dose: 60 mg Documented by: Losartan Potassium (Cozaar) 12.5 mg PO DAILY [facility] Last Admin: 12/28/18 08:26 Dose: 12.5 mg Documented by: Metoprolol Tartrate (Lopressor) 25 mg PO BID [facility] Last Admin: 12/28/18 21:04 Dose: 25 mg Documented by: Midodrine (Proamatine) 10 mg PO AC-TID [facility] Last Admin: 12/28/18 17:58 Dose: 10 mg Documented by: Miscellaneous Information (Potassium Per Protocol) 1 each MISCELLANE DAILY PRN; Protocol PRN Reason: Per Protocol Objective - Vital Signs Vital signs: Vital Signs Temp 98.9 F 12/28/18 19:48 Pulse 82 12/28/18 19:48 Resp 16 12/28/18 19:48 BP 115/71 12/28/18 19:48 Pulse Ox 95 12/28/18 19:48 Intake & Output 12/28/18 12/28/18 12/29/18 06:59 18:59 06:59 Intake Total 200 Output Total 1600 1025 Balance -1600 -825 Intake: Oral 200 Output: Urine 1600 1025 Other: Voiding Method Indwelling Catheter Indwelling Catheter Indwelling Catheter # Voids 480 # Bowel Movements 1 - Exam GENERAL: Sitting up in a recliner. A bit more awake EYES: Pupils equal. Conjunctiva normal. HEENT: External appearance of nose and ears normal, oral cavity grossly normal. NECK: Short and thick, JVD unable to assess; masses not palpable. HEART: Heart sounds muffled; edema present. LUNGS: Respiratory rate increased distant breath sounds. ABDOMEN: Soft, nontender, normal bowel sounds , no masses palpable. PSYCH: Tired , not depressed - Labs CBC & Chem 7: 12/28/18 06:58 12/29/18 06:18 Labs: Abnormal Lab Results - Last 24 Hours (Table) 12/28/18 12/28/18 Range/Units 06:58 06:58 RDW 15.9 H (11.5-15.5) % Plt Count 112 L (150-450) k/uL Lymphocytes # 0.4 L (1.0-4.8) k/uL Carbon Dioxide 36 H (22-30) mmol/L BUN 34 H (7-17) mg/dL Assessment and Plan Assessment: Assessment: -Acute congestive heart failure exacerbation from diastolic dysfunction EF 65- 70%, improving slowly, remains on IV Lasix . -Acute on chronic cor pulmonale, exacerbation, improving slowly -Severe secondary pulmonary hypertension from CHF -Acute renal failure, prerenal from diuresis and cardiorenal syndrome -Acute mixed metabolic and respiratory acidosis -Hypertensive heart disease -Moderate mitral regurgitation, severe tricuspid regurgitation, mitral valve prolapse, nonrheumatic -GERD -Hyperlipidemia -Essential hypertension -Primary osteoarthritis -Chronic diverticulosis -Morbid obesity BMI 65.5 -Possibly obesity hypoventilation syndrome -Traumatic hematuria -Depression- -Acute metabolic encephalopathy from electrolyte abnormalities, with some improvement -Medical deconditioning, Plan: Remains on IV Lasix 60 mg BID. Follow I's closely. Continue with the rest of her medication regimen. Encouraged to increase oral intake. Discharge planning: [facility]
[2018-12-29 07:09] LABS: Calcium 8.6 mg/dL (8.4-10.2); Magnesium 1.7 mg/dL (1.6-2.3); Potassium 3.7 mmol/L (3.5-5.1)
--- NOTE | 2018-12-29 09:18 | P.PN ---
Subjective Progress Note Date: 12/29/18 Principal diagnosis: CHF This is a pleasant 68-year-old female patient with a past medical history significant for chronic diastolic congestive heart failure, valvular heart disea se with known moderate MR and moderate TR, chronic atrial fibrillation, status post pacemaker, as well as obesity, was admitted to the hospital with acute exacerbation of congestive heart failure as well as acute renal failure. On follow-up with the patient today, December 292018, the patient stated that the shortness of breath is better. She denies any symptoms of chest pain or chest discomfort. She continues to be on Lasix IV. The kidney function continues to be stable. The plan is to discharge the patient to extended-care facility this coming Sunday. I would keep the patient on Lasix IV till tomorrow and she can be switched into Lasix by mouth. Objective - Vital Signs Vital signs: Vital Signs Temp 98.6 F 12/29/18 01:21 Pulse 87 12/29/18 01:21 Resp 18 12/29/18 01:21 BP 123/79 12/29/18 01:21 Pulse Ox 97 12/29/18 01:21 Intake & Output 12/28/18 12/29/18 12/29/18 18:59 06:59 18:59 Intake Total 200 Output Total 1025 1875 Balance -825 -1875 Intake: Oral 200 Output: Urine 1025 1875 Other: Voiding Method Indwelling Catheter Indwelling Catheter - Constitutional General appearance: Present: no acute distress - Respiratory Respiratory: bilateral: diminished - Cardiovascular Heart sounds: normal: S1, S2 - Labs CBC & Chem 7: 12/28/18 06:58 12/29/18 06:18 Labs: Abnormal Lab Results - Last 24 Hours (Table) 12/29/18 Range/Units 06:18 Carbon Dioxide 35 H (22-30) mmol/L BUN 33 H (7-17) mg/dL Assessment and Plan Assessment: Assessment #1 congestive heart failure exacerbation secondary to diastole dysfunction #2 chronic atrial fibrillation was controlled heart rate #3 status post by the pacemaker acute renal failure which has improved Plan #1 continue the current medical regimen including Lasix IV till tomorrow #2 continue monitoring the kidney function and electrolytes #3 follow-up with the patient
[2018-12-29] MEDS: CEPHALEXIN 250 MG CAP PO SCH ×3 (09:41→21:00)
[2018-12-29] MEDS: METOPROLOL TARTRATE 25 MG TAB PO SCH ×2 (09:41→21:00)
[2018-12-29] MEDS: LOSARTAN 25 MG TAB PO SCH (09:41)
[2018-12-29] MEDS: ACETAMINOPHEN TAB 325 MG TAB PO PRN (09:42)
[2018-12-29] MEDS: MIDODRINE 5 MG TAB PO SCH ×3 (09:42→17:48)
[2018-12-29] MEDS: FUROSEMIDE 10 MG/ML 10 ML VIAL IV SCH ×2 (09:42→20:59)
[2018-12-29] MEDS: ENOXAPARIN 40 MG/0.4 ML SYRINGE SQ SCH (09:42)
--- NOTE | 2018-12-29 11:10 | P.PN ---
Subjective Patient is seen in follow-up for acute kidney injury. Renal function has improved since admission. Currently maintained on IV Lasix 60 mg twice daily. Patient has diastolic CHF with moderate mitral regurgitation and severe tricuspid regurgitation and pulmonary hypertension. Dyspnea and edema have both improved. She admits to good urine output. Oral intake is gradually improving. No active complaints at this time. No changes overnight. Vital signs are stable. General: The patient appeared well nourished and normally developed. HEENT: Head exam is unremarkable. Neck is without jugular venous distension. LUNGS: Breath sounds decreased. HEART: Rate and Rhythm are regular. First and second heart sounds normal. No murmurs, rubs or gallops. ABDOMEN: Abdominal exam reveals normal bowel sounds. Non-tender. EXTREMITITES: 1+ edema. Objective - Vital Signs Vital signs: Vital Signs Temp 98.2 F 12/29/18 07:00 Pulse 87 12/29/18 08:00 Resp 14 12/29/18 08:00 BP 114/71 12/29/18 07:00 Pulse Ox 93 L 12/29/18 07:00 Intake & Output 12/28/18 12/29/18 12/29/18 18:59 06:59 18:59 Intake Total 200 296 Output Total 1025 1875 350 Balance -825 -1875 -54 Intake: Oral 200 296 Output: Urine 1025 1875 350 Other: Voiding Method Indwelling Catheter Indwelling Catheter Indwelling Catheter # Voids 480 - Labs CBC & Chem 7: 12/28/18 06:58 12/29/18 06:18 Labs: Abnormal Lab Results - Last 24 Hours (Table) 12/29/18 Range/Units 06:18 Carbon Dioxide 35 H (22-30) mmol/L BUN 33 H (7-17) mg/dL Assessment and Plan Plan: Assessment: 1. Acute kidney injury mostly prerenal secondary to cardiorenal syndrome. Renal function improved. Creatinine 0.84 today. 2. Acute on chronic diastolic CHF with moderate mitral regurgitation, severe tricuspid regurgitation and pulmonary hypertension. 3. Volume overload maintained on diuretics. Improving. 4. Chronic hypotension maintained on midodrine. Status post dopamine and dobutamine. 5. Metabolic acidosis due to acute kidney injury. Resolved. Plan: Maintain IV Lasix 60 mg twice daily. Encourage oral intake. Avoid nephrotoxins. Repeat electrolytes in the morning.
[2018-12-29] MEDS: ATORVASTATIN 40 MG TAB PO SCH (20:59)
--- NOTE | 2018-12-30 | P.PN ---
Subjective Progress Note Date: 12/29/18 Principal diagnosis: Acute on Chronic CHF exacerbation is a 68-year-old patient who follows Dr. Cooper. 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 Has a rather extensive medical history. Chronic stable medical conditions include GERD, hyperlipidemia, hypertension, Werner arthritis, had a stroke in 2017 left her with a slow speech, diverticulosis. Patient also has a history of CHF and atrial fibrillation. Patient is chronically short of breath. Put for last few days she's getting more and more short of breath. Slight cough. No sputum production. Some wheezing. No fever no chills. Increasing edema. Decreased appetite. Admitted for the same. Quite a bit short of breath at rest. Admitted with acute CHF exacerbation. Also expressed some suicidal ideation the past. Noticed by the nurse. Psychiatry consultation was done. Seen by psychiatry. [place] to have PTSD and depression. Patient reluctant to start any antidepressants. On December 21 started on dobutamine and dopamine drip. Was transferred to the ICU. On December 26 dopamine and dobutamine drip was d iscontinued. Transfered out of ICU on December 27. On 12/29 - Patient is seen on the general medical floors. Patient states that she is short of breath. She still continues to be on IV Lasix. Overall the patient states that she is doing much better. She denies having any chest pain or palpitations. Still has mild swelling of her lower extremities. She denies having any abdominal pain nausea vomiting or diarrhea. Active Medications Acetaminophen (Tylenol Tab) 650 mg PO Q6HR PRN PRN Reason: Fever and/ or Mild Pain Last Admin: 12/29/18 09:42 Dose: 650 mg Documented by: Albuterol/Ipratropium (Duoneb 0.5 Mg-3 Mg/3 Ml Soln) 3 ml INHALATION RT-QID PRN PRN Reason: Shortness Of Breath Or Wheezing Last Admin: 12/23/18 10:55 Dose: 3 ml Documented by: Atorvastatin Calcium (Lipitor) 40 mg PO HS [facility] Last Admin: 12/29/18 20:59 Dose: Not Given Documented by: Cephalexin (Keflex) 250 mg PO TID [facility] Last Admin: 12/29/18 21:00 Dose: 250 mg Documented by: Digoxin (Lanoxin) 125 mcg PO MoWeFr@0900 [facility] Last Admin: 12/27/18 08:25 Dose: 125 mcg Documented by: Enoxaparin Sodium (Lovenox) 40 mg SQ DAILY [facility] Last Admin: 12/29/18 09:42 Dose: 40 mg Documented by: Furosemide (Lasix) 60 mg IV Q12HR [facility] Last Admin: 12/29/18 20:59 Dose: 60 mg Documented by: Losartan Potassium (Cozaar) 12.5 mg PO DAILY [facility] Last Admin: 12/29/18 09:41 Dose: 12.5 mg Documented by: Metoprolol Tartrate (Lopressor) 25 mg PO BID [facility] Last Admin: 12/29/18 21:00 Dose: 25 mg Documented by: Midodrine (Proamatine) 10 mg PO AC-TID [facility] Last Admin: 12/29/18 17:48 Dose: 10 mg Documented by: Miscellaneous Information (Potassium Per Protocol) 1 each MISCELLANE DAILY PRN; Protocol PRN Reason: Per Protocol Objective - Vital Signs Vital signs: Vital Signs Temp 97.9 F 12/29/18 14:32 Pulse 81 12/29/18 14:32 Resp 16 12/29/18 14:32 BP 113/76 12/29/18 14:32 Pulse Ox 95 12/29/18 14:32 Intake & Output 12/28/18 12/29/18 12/29/18 18:59 06:59 18:59 Intake Total 200 922 Output Total 1025 1875 1450 Balance -825 -1875 -528 Intake: Oral 200 922 Output: Urine 1025 1875 1450 Uretheral (Barton) 1100 Other: Voiding Method Indwelling Catheter Indwelling Catheter Indwelling Catheter # Voids 480 - Exam GENERAL: Sitting up in a recliner. EYES: Pupils equal. Conjunctiva normal. HEENT: External appearance of nose and ears normal, oral cavity grossly normal. NECK: Short and thick, JVD unable to assess; masses not palpable. HEART: Heart sounds muffled; edema present. LUNGS: Respiratory rate increased distant breath sounds. ABDOMEN: Soft, nontender, normal bowel sounds , no masses palpable. - Labs CBC & Chem 7: 12/28/18 06:58 12/29/18 06:18 Labs: Abnormal Lab Results - Last 24 Hours (Table) 12/29/18 Range/Units 06:18 Carbon Dioxide 35 H (22-30) mmol/L BUN 33 H (7-17) mg/dL Assessment and Plan Assessment: Assessment: -Acute congestive heart failure exacerbation from diastolic dysfunction EF 65- 70%, improving slowly . -Acute on chronic cor pulmonale, exacerbation, improving slowly -Severe secondary pulmonary hypertension from CHF -Acute renal failure, prerenal from diuresis and cardiorenal syndrome -Acute mixed metabolic and respiratory acidosis -Hypertensive heart disease -Moderate mitral regurgitation, severe tricuspid regurgitation, mitral valve prolapse, nonrheumatic -GERD -Hyperlipidemia -Essential hypertension -Primary osteoarthritis -Chronic diverticulosis -Morbid obesity BMI 65.5 -Possibly obesity hypoventilation syndrome -Traumatic hematuria -Depression- -Acute metabolic encephalopathy from electrolyte abnormalities, with some improvement -Medical deconditioning, Plan: Remains on IV Lasix 60 mg BID. Follow I's closely. Continue with the rest of her medication regimen. Encouraged to increase oral intake. Continue with the current medication regimen. Anticipate discharge in the next 24-48 hrs. Overall prognosis is poor.
[2018-12-30] MEDS: ACETAMINOPHEN TAB 325 MG TAB PO PRN (04:29)
[2018-12-30 07:35] VITALS: RESP 16
[2018-12-30] MEDS: FUROSEMIDE 10 MG/ML 10 ML VIAL IV SCH (09:38)
[2018-12-30] MEDS: ENOXAPARIN 40 MG/0.4 ML SYRINGE SQ SCH (09:38)
[2018-12-30] MEDS: METOPROLOL TARTRATE 25 MG TAB PO SCH (09:39)
[2018-12-30] MEDS: MIDODRINE 5 MG TAB PO SCH ×2 (09:39→12:40)
[2018-12-30] MEDS: CEPHALEXIN 250 MG CAP PO SCH ×2 (09:39→15:53)
[2018-12-30] MEDS: LOSARTAN 25 MG TAB PO SCH (09:40)
[2018-12-30] MEDS: DIGOXIN 125 MCG TAB PO SCH (09:40)
[2018-12-30] MEDS ORDERED: SPIRONOLACTONE 25 MG TAB PO SCH (10:15)
--- NOTE | 2018-12-30 10:44 | P.PN ---
Subjective This is a pleasant 68-year-old female past medical history significant for idiopathic nonischemic cardiomyopathy, permanent atrial fibrillation, permanent pacemaker implantation, CVA, hypertension, dyslipidemia, chronic diastolic heart failure and morbid obesity. She follows with Dr. Boo in the office. She is seen and examined sitting up in bed on the medical floor in no acute distress. The plan is transfer to [facility] today. She denies worsening shortness of breath. She has had no chest pain, dizziness or palpitations. She states she has been working with physical therapy daily. Blood pressure 134/76 heart rate 82 afebrile and maintaining oxygen saturation on nasal cannula. Laboratory data reviewed, sodium 142, potassium 3.7, creatinine 0.84, magnesium 1.7. Currently maintained on IV lasix 60 BID, digoxin 125 mcg, atorvastatin 40 mg daily, losartan 12.5 mg daily, lopressor 25 mg BID and midodrine 10 mg TID. GENERAL: This is a 68-year-old female in no apparent distress at the time of my examination. Morbidly obese. HEENT: Head is atraumatic, normocephalic. Pupils are equal, round. Sclerae anicteric. Conjunctivae are clear. Mucous membranes of the mouth are moist. Neck is supple. Difficult to assess for jugular venous distention secondary to body habitus. No carotid bruit is heard. LUNGS: Clear bilaterally with no rales, rhonchi or wheezes. Diminished bilaterally. No chest wall tenderness is noted on palpation or with deep breathing. HEART: Irregular rate and rhythm with systolic ejection murmur at the apex, no rubs or gallops. S1 and S2 heard. ABDOMEN: Soft, nontender. Bowel sounds are heard. No organomegaly noted. Morbidly obese. EXTREMITIES: Bilateral lower extremity trace pitting edema. ASSESSMENT Acute on chronic diastolic right-sided heart failure Severe pulmonary hypertension History of idiopathic nonischemic cardiomyopathy Permanent atrial fibrillation History of sick sinus syndrome status post permanent pacemaker implantation Hypertension Dyslipidemia Valvular heart disease Morbid obesity, BMI 70 PLAN Transition to oral diuretics, lasix 80 mg BID and initiate on aldactone 25 mg daily. Discontinue digoxin. BMP in 1 week as an outpatient. Follow up with Dr. Boo in 2 weeks, appointment to be made prior to discharge. Nurse Practitioner note has been reviewed, I agree with a documented findings and plan of care. Patient was seen and examined. Objective - Vital Signs Vital signs: Vital Signs Temp 98.4 F 12/30/18 06:50 Pulse 82 12/30/18 06:50 Resp 16 12/30/18 06:50 BP 134/76 12/30/18 06:50 Pulse Ox 95 12/30/18 07:17 Intake & Output 12/29/18 12/30/18 12/30/18 18:59 06:59 18:59 Intake Total 922 180 Output Total 1450 600 Balance -528 -600 180 Intake: Oral 922 180 Output: Urine 1450 600 Uretheral (Barton) 1100 Other: Voiding Method Indwelling Catheter Indwelling Catheter Indwelling Catheter # Voids 480 - Labs CBC & Chem 7: 12/28/18 06:58 12/29/18 06:18
--- NOTE | 2018-12-30 13:58 | PN ---
PROGRESS NOTE Patient is seen for followup for acute kidney injury. Her renal function has improved significantly. Volume status has also improved. PHYSICAL EXAMINATION: On examination today, blood pressure was 134/76, heart rate of 82 per minute, she is afebrile. Examination of the heart S1, S2. Examination of the lungs, bilateral breath sounds are heard. Abdomen is soft. Morbidly obese. Examination of the lower extremities shows chronic skin changes. Edema is significantly improved. LABS: Show sodium 142, potassium 3.7, chloride 98, BUN 33, serum creatinine 0.84. ASSESSMENT: 1. Acute kidney injury cardiorenal and secondary to contrast nephropathy as well as hypotension. Renal function has improved significantly. 2. Volume overload, status post diuresis. 3. Severe right-sided heart failure. 4. Chronic hypotension, maintained on midodrine. PLAN: Continue current dose of Lasix. May continue with the Cozaar. I will DC the midodrine and we will sign off. MMODL / IJN: [id number] /
[2018-12-30 14:35] VITALS: BP 135/88; PULSE 77; TEMP 97.8
--- NOTE | 2018-12-30 14:59 | P.DS ---
Providers Date of admission: 12/19/18 15:46 Expected date of discharge: 12/30/18 Attending physician: Hector Felipe Consults: 12/19/18 08:02 Consult Physician Urgent Consulting Provider: Brianna Archuleta Consult Reason/Comments: Elevated D-dimer, SOB Do you want consulting provider notified?: Yes 12/19/18 12:30 Consult Physician Urgent Consulting Provider: Hu Cruz Consult Reason/Comments: Client stated suicidal thoughts in the recent past Do you want consulting provider notified?: Yes 12/19/18 14:40 Consult Physician Urgent Consulting Provider: Ezequiel Aguilera Consult Reason/Comments: Increased hematuria Do you want consulting provider notified?: Yes 12/19/18 23:26 Consult Physician Routine Consulting Provider: Benigno Rai Consult Reason/Comments: chf Do you want consulting provider notified?: Yes 12/21/18 10:33 Consult Physician Routine Consulting Provider: Mary Durand Consult Reason/Comments: poor urine output Do you want consulting provider notified?: Yes Primary care physician: Elieser Cooper [facility] Course: Chief complaint: Shortness of breath, swelling in lower extremities, and abdominal wall History of present illness: Ms. Sheppard is a 68-year-old morbidly obese white female patient of Dr. Cooper with past medical history of chronic A. fib not on chronic anticoagulation for history of GI bleeding, cardiomyopathy with permanent pacemaker implantation, chronic congestive heart failure with diastolic dysfunction, anxiety, depression, GERD/reflux, hypertension, hyperlipidemia, previous history of CVA, and a lifetime nonsmoker. Patient came into the emergency Department for evaluation on 12/18/2018 with multiple complaints including decreased ability to function, inability to ambulate, shortness of breath, abdominal pain, distended abdomen, and tenderness throughout her abdomen and lower extremity edema. Denies any chest pain, denied any fever or chills, denied any palpitations, no cough or congestion. Acute abdomen series revealed enlarged heart, blunting of the right costophrenic angle, mild pulmonary congestion, consistent with mild heart failure. Labs revealed normal white count, a 4.6, hemoglobin was 13.6, chemistry revealed sodium of 141, potassium is 4.9, chloride is 114, CO2 is 15, B1 is 23, creatinine 0.91. ProBNP was significantly elevated , troponin was negative 1, LFTs were within normal limits, d-dimer was elevated at 3.18. She underwent a CT of her chest was negative for pulmonary embolism, small right pleural effusion and ascites. Bilateral venous duplex negative for DVT. Echocardiogram obtained reveals preserved LV systolic function with ejection fraction 65-70%, septal flattening in diastole consistent with RVSP elevation and volume overload, severely dilated left atrium, moderate MR with a predominantly posteriorly directed jet, moderate prolapse of the anterior mitral leaflet, severe tricuspid regurgitation and severe pulmonary hypertension with RVSP of 79 mmHg. Barton catheter noted in dependent drainage bag with dark tea- colored urine.Also expressed some suicidal ideation the past. Noticed by the nurse. Psychiatry consultation was done. Seen by psychiatry. [place] to have PTSD and depression. Patient reluctant to start any antidepressants. Lower extremity Doppler-negative Chest CTA-negative for PE 2-D echo-EF 65-70%, moderate concentric left medical hypertrophy, moderate mitral regurgitation, severe tricuspid regurgitation, severe pulmonary hypertension, moderate prolapse of the anterior mitral valve leafle Patient was treated for acute CHF exacerbation with aggressive diuresis, her symptoms of lower extremity swelling and breathing improved significantly. She was in the ICU from December 21 to December 26. Patient's urine culture was also positive for Klebsiella pneumonia and completed antibiotic treatment. Her Barton's catheter has been discontinued. During her hospital stay she was followed by cardiology, pulmonary, nephrology services very closely. She has been cleared by all of them to be discharged. Patient states that she is back to her baseline. Patient's vitals Vital Signs - 8 hr 12/30/18 12/30/18 07:17 14:11 Temperature 97.8 F Pulse Rate [ 77 Pulse Oximetery ] Respiratory 16 Rate Blood Pressure 135/88 [Right Arm] O2 Sat by Pulse 95 93 L Oximetry - Exam GENERAL: Sitting up in a recliner. EYES: Pupils equal. Conjunctiva normal. HEENT: External appearance of nose and ears normal, oral cavity grossly normal. NECK: Short and thick, JVD unable to assess; masses not palpable. HEART: Heart sounds muffled; edema present. LUNGS: Respiratory rate increased distant breath sounds. ABDOMEN: Soft, nontender, normal bowel sounds , no masses palpable. PSYCH: Tired , not depressed DISCHARGE DIAGNOSIS -Acute congestive heart failure exacerbation from diastolic dysfunction EF 65- 70% -Acute on chronic cor pulmonale, exacerbation -Severe secondary pulmonary hypertension from CHF -Acute renal failure, prerenal from diuresis and cardiorenal syndrome -Acute mixed metabolic and respiratory acidosis -Hypertensive heart disease -Moderate mitral regurgitation, severe tricuspid regurgitation, mitral valve prolapse, nonrheumatic -GERD - UTI with Klebisella pneumonia -Hyperlipidemia -Essential hypertension -Primary osteoarthritis -Chronic diverticulosis -Morbid obesity BMI 65.5 -Possibly obesity hypoventilation syndrome -Traumatic hematuria -Depression -Acute metabolic encephalopathy from electrolyte abnormalities, with some improvement -Chronic Medical deconditioning, Follow up : She is advised to follow up with cardiology Dr. Boo in 1 week. Urology appointment was made in the first week of January. And advised to follow up with her PCP in 1-2 days. [facility] More than 40 minutes spent worse that discharge of the patient. Patient Condition at Discharge: Fair Plan - Discharge Summary Discharge Rx Participant: Yes New Discharge Prescriptions: No Action Digoxin [Lanoxin] 125 mcg PO MOWEFR Atorvastatin [Lipitor] 40 mg PO HS Furosemide [Lasix] 40 mg PO DAILY #30 tab Irbesartan [Avapro] 300 mg PO DAILY Metoprolol Succinate (ER) [Toprol XL] 100 mg PO BID traMADol HCL 50 mg PO Q6H PRN PRN Reason: Pain Discharge Medication List Digoxin [Lanoxin] 125 mcg PO MOWEFR 10/07/16 [History] Atorvastatin [Lipitor] 40 mg PO HS 05/29/17 [History] Furosemide [Lasix] 40 mg PO DAILY #30 tab 02/26/18 [Rx] Irbesartan [Avapro] 300 mg PO DAILY 07/25/18 [History] Metoprolol Succinate (ER) [Toprol XL] 100 mg PO BID 07/25/18 [History] traMADol HCL 50 mg PO Q6H PRN 12/18/18 [History] Follow up Appointment(s)/Referral(s): Memo Boo MD [STAFF PHYSICIAN] - 01/13/19 9:45 am (Appt on 01/07 for echo was cancelled) Ezequiel Aguilera MD [STAFF PHYSICIAN] - 01/21/19 2:20 pm (for cystoscopy ) [facility], [NON-STAFF] - As Needed Elieser Cooper DO [Primary Care Provider] - 1-2 days Ambulatory/Diagnostic Orders: Basic Metabolic Panel [LAB.AMB] Time Frame: 1 Week, Location: None Selected
[2018-12-30] MEDS ORDERED: FUROSEMIDE 80 MG TAB PO SCH (16:00)
== END 2018-12-30 16:56 | DRG 291 ==
LOC: EC 20:57 → UNDOADMOB 23:38 → 3NMEDONC 23:38 → 4SSUR 23:38 → OBSVTOIN 12-19 15:46 → 3SCARD 12-21 13:09 → 2SICU 12-22 13:17 → 4SSUR 12-28 03:44
PROVIDERS: ADMIT Hospitalist; ATTEND Hospitalist
PROC: 05HD33Z Insertion of Infusion Device into Right Cephalic Vein, Percutaneous Approach (ICD-10-PCS; principal; 2018-12-23 10:00)
DX: I13.0 Hypertensive heart and chronic kidney disease with heart failure and stage 1 through stage 4 chronic kidney disease, or unspecified chronic kidney disease (principal); J96.02 Acute respiratory failure with hypercapnia; G93.41 Metabolic encephalopathy; J96.01 Acute respiratory failure with hypoxia; I50.33 Acute on chronic diastolic (congestive) heart failure; N17.0 Acute kidney failure with tubular necrosis; E66.2 Morbid (severe) obesity with alveolar hypoventilation; E87.4 Mixed disorder of acid-base balance; N39.0 Urinary tract infection, site not specified; T83.83XA Hemorrhage due to genitourinary prosthetic devices, implants and grafts, initial encounter; Z68.44 Body mass index [BMI] 60.0-69.9, adult; I48.20 Chronic atrial fibrillation, unspecified; I42.8 Other cardiomyopathies; E87.5 Hyperkalemia; B96.1 Klebsiella pneumoniae [K. pneumoniae] as the cause of diseases classified elsewhere; T50.8X5A Adverse effect of diagnostic agents, initial encounter; N14.1 Nephropathy induced by other drugs, medicaments and biological substances; I27.81 Cor pulmonale (chronic); E11.22 Type 2 diabetes mellitus with diabetic chronic kidney disease; I25.10 Atherosclerotic heart disease of native coronary artery without angina pectoris; N20.0 Calculus of kidney; I27.29 Other secondary pulmonary hypertension; R26.9 Unspecified abnormalities of gait and mobility; K57.90 Diverticulosis of intestine, part unspecified, without perforation or abscess without bleeding; K21.9 Gastro-esophageal reflux disease without esophagitis; E78.5 Hyperlipidemia, unspecified; I08.1 Rheumatic disorders of both mitral and tricuspid valves; E87.6 Hypokalemia; R31.0 Gross hematuria; M19.91 Primary osteoarthritis, unspecified site; R53.81 Other malaise; N18.3 Chronic kidney disease, stage 3 (moderate); T50.2X5A Adverse effect of carbonic-anhydrase inhibitors, benzothiadiazides and other diuretics, initial encounter; I95.89 Other hypotension; E86.1 Hypovolemia; J44.9 Chronic obstructive pulmonary disease, unspecified; F43.10 Post-traumatic stress disorder, unspecified; M25.569 Pain in unspecified knee; F32.9 Major depressive disorder, single episode, unspecified; Z96.652 Presence of left artificial knee joint; Z91.19 Patient's noncompliance with other medical treatment and regimen; Z95.0 Presence of cardiac pacemaker; Z79.899 Other long term (current) drug therapy; Z86.73 Personal history of transient ischemic attack (TIA), and cerebral infarction without residual deficits; Z87.442 Personal history of urinary calculi; Z87.19 Personal history of other diseases of the digestive system; Z87.440 Personal history of urinary (tract) infections; Z82.49 Family history of ischemic heart disease and other diseases of the circulatory system; Z88.6 Allergy status to analgesic agent; Z91.041 Radiographic dye allergy status; Z90.89 Acquired absence of other organs; Z81.8 Family history of other mental and behavioral disorders; Z91.81 History of falling; Z86.2 Personal history of diseases of the blood and blood-forming organs and certain disorders involving the immune mechanism
CPT/HCPCS: 36410; 36415; 36600; 51702; 71045; 71275; 74022; 76937; 80048; 80053; 81001; 82533; 82550; 82805; 83735; 83880; 84100; 84443; 84484; 85025; 85027; 85379; 85610; 85730; 87040; 87077; 87086; 87186; 93005; 93306; 93970; 94640; 94660; 94760; 96374; 96375; 99285

== ENCOUNTER 2019-01-21 17:41 | Inpatient (IN) | payer MEDICARE, BC ==
[2019-01-21] MEDS ORDERED: SODIUM CHLORIDE 0.9% 500 ML 500 ML IV STA (18:06)
[2019-01-21] MEDS ORDERED: HYDROmorphone 1 MG/ML 1 ML SYRINGE IVP STA (18:06)
[2019-01-21] MEDS ORDERED: ONDANSETRON 4 MG/2 ML VIAL IVP STA (18:06)
--- NOTE | 2019-01-21 18:14 | ED ---
General Adult HPI - General Chief complaint: Abdominal Pain Stated complaint: abdominal pain/vomiting Time Seen by Provider: 01/21/19 17:45 Source: patient, EMS, RN notes reviewed Mode of arrival: EMS - History of Present Illness Initial comments: This is a 68-year-old female presents emergency department stating she had diverticulitis and was in the ICU at the beginning of December. Patient states from there she went to the shelter. Patient states last night she started having abdominal pain and abdominal pain is gotten worse. Patient also states she's been vomiting since this morning. Patient states she's had no diarrhea but had a small bowel movement. Patient denies any fever chills. Patient states the pain is in the middle abdomen of the bellybutton. Patient denies any chest pain difficulty breathing first breath. Patient denies any dysuria hematuria urinary frequency. Patient states the pain does radiate to her back a little. Patient denies any previous abdominal surgeries. - Related Data Home Medications Medication Instructions Recorded Confirmed Atorvastatin [Lipitor] 40 mg PO HS 05/29/17 12/18/18 traMADol HCL 50 mg PO Q6H PRN 12/18/18 12/18/18 Previous Rx's Medication Instructions Recorded Furosemide [Lasix] 80 mg PO BID@0900,1600 30 Days #60 12/30/18 tab Losartan [Cozaar] 12.5 mg PO DAILY 30 Days #30 tab 12/30/18 Metoprolol Tartrate [Lopressor] 25 mg PO BID 30 Days #60 tab 12/30/18 Spironolactone [Aldactone] 25 mg PO DAILY 30 Days #30 tab 12/30/18 Allergies Allergy/AdvReac Type Severity Reaction Status Date / Time aspirin AdvReac Unknown STATES SHE Verified 12/18/18 21:31 WAS TOLD NOT TO TAKE. Iodinated Contrast Media AdvReac Unknown STATES SHE Verified 12/18/18 21:31 [Iodinated Contrast- Oral WAS TOLD and IV Dye] TO AVOID NSAIDS (Non-Steroidal AdvReac Unknown STATES SHE Verified 12/18/18 21:31 Anti-Inflamma WAS TOLD TO AVOID Review of Systems ROS Statement: Those systems with pertinent positive or pertinent negative responses have been documented in the HPI. ROS Other: All systems not noted in ROS Statement are negative. 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 Past Anesthesia/Blood Transfusion Reactions: No Reported Reaction Type of Cardiac Device: Permanent Pacemaker Device Placement Date:: 04/24/2013 placed and gen change in May 2017 Past Psychological History: Anxiety, Depression, PTSD Smoking Status: Never smoker Past Alcohol Use History: Rare Past Drug Use History: None Reported - Past Family History Father Additional Family Medical History / Comment(s): BRAIN ANEURYSM Mother Family Medical History: Coronary Artery Disease (CAD), Dementia Additional Family Medical History / Comment(s): FROM "HEART DISEASE" PER PATIENT. General Exam - General Exam Comments Initial Comments: GENERAL: Patient is well-developed and well-nourished. Patient is nontoxic and well- hydrated and is in moderate distress. ENT: Neck is soft and supple. No significant lymphadenopathy is noted. Oropharynx is clear. Moist mucous membranes. Neck has full range of motion without eliciting any pain. EYES: The sclera were anicteric and conjunctiva were pink and moist. Extraocular movements were intact and pupils were equal round and reactive to light. Eyelids were unremarkable. PULMONARY: Unlabored respirations. Good breath sounds bilaterally. No audible rales rhonchi or wheezing was noted. CARDIOVASCULAR: There is a regular rate and rhythm without any murmurs gallops or rubs. ABDOMEN: Abdomen is very tender just above the umbilicus there is an area of firmness that could be consistent with a hernia. SKIN: Skin is clear with no lesions or rashes and otherwise unremarkable. NEUROLOGIC: Patient is alert and oriented x3. Cranial nerves II through XII are grossly intact. Motor and sensory are also intact. Normal speech, volume and content. Symmetrical smile. MUSCULOSKELETAL: Normal extremities with adequate strength and full range of motion. LYMPHATICS: No significant lymphadenopathy is noted PSYCHIATRIC: Normal psychiatric evaluation. Course Vital Signs 01/21/19 01/21/19 01/21/19 17:45 19:00 19:25 Temperature 97 F L Pulse Rate 102 H 108 H Respiratory 18 16 Rate Blood Pressure 138/109 141/98 O2 Sat by Pulse 95 92 L 93 L Oximetry Medical Decision Making - Medical Decision Making EKG shows atrial fibrillation with rapid ventricular response at 106 bpm QRS is 94 QT interval 346 QTC is 459. Patient's EKG shows no ST segment elevation there is some T-wave inversions in the inferior leads. I evaluated the patient's old labs and chart and I did not see any indication of diverticulitis even though that is with the patient told me was the reason she was noted to ICU. From reading the chart sounds that she was negative for congestive heart. Computed tomography scan shows incarcerated hernia with small bowel obstruction. I started the patient on antibiotics I gave the patient pain medicine nausea medicine and IV fluids. I also put an NG and the patient. I spoke with Dr. Clement he wanted the patient hydrated and receive fluids as well as an NG tube and he would take the patient to the OR. - Lab Data Result diagrams: 01/21/19 18:40 01/21/19 18:40 Lab Results 01/21/19 01/21/19 01/21/19 Range/Units 18:40 18:40 18:40 WBC 9.5 (3.8-10.6) k/uL RBC 5.10 (3.80-5.40) m/uL Hgb 14.9 (11.4-16.0) gm/dL Hct 45.1 (34.0-46.0) % MCV 88.4 D (80.0-100.0) fL MCH 29.2 (25.0-35.0) pg MCHC 33.0 (31.0-37.0) g/dL RDW 15.9 H (11.5-15.5) % Plt Count 144 L (150-450) k/uL Neutrophils % 92 % Lymphocytes % 4 % Monocytes % 3 % Eosinophils % 0 % Basophils % 0 % Neutrophils # 8.7 H (1.3-7.7) k/uL Lymphocytes # 0.4 L (1.0-4.8) k/uL Monocytes # 0.3 (0-1.0) k/uL Eosinophils # 0.0 (0-0.7) k/uL Basophils # 0.0 (0-0.2) k/uL Sodium 141 (137-145) mmol/L Potassium 4.7 (3.5-5.1) mmol/L Chloride 98 (98-107) mmol/L Carbon Dioxide 25 (22-30) mmol/L Anion Gap 18 mmol/L BUN 24 H (7-17) mg/dL Creatinine 1.34 H (0.52-1.04) mg/dL Est GFR (CKD-EPI)AfAm 46 (>60 ml/min/1.73 sqM) Est GFR (CKD-EPI)NonAf 40 (>60 ml/min/1.73 sqM) Glucose 134 H (74-99) mg/dL Plasma Lactic Acid Eduardo 2.7 H* (0.7-2.0) mmol/L Calcium 10.3 H (8.4-10.2) mg/dL Total Bilirubin 2.4 H (0.2-1.3) mg/dL AST 36 (14-36) U/L ALT 26 (9-52) U/L Alkaline Phosphatase 109 (38-126) U/L Troponin I (0.000-0.034) ng/mL Total Protein 8.1 (6.3-8.2) g/dL Albumin 4.7 (3.5-5.0) g/dL Amylase 70 (30-110) U/L Lipase 146 (23-300) U/L 01/21/19 Range/Units 18:40 WBC (3.8-10.6) k/uL RBC (3.80-5.40) m/uL Hgb (11.4-16.0) gm/dL Hct (34.0-46.0) % MCV (80.0-100.0) fL MCH (25.0-35.0) pg MCHC (31.0-37.0) g/dL RDW (11.5-15.5) % Plt Count (150-450) k/uL Neutrophils % % Lymphocytes % % Monocytes % % Eosinophils % % Basophils % % Neutrophils # (1.3-7.7) k/uL Lymphocytes # (1.0-4.8) k/uL Monocytes # (0-1.0) k/uL Eosinophils # (0-0.7) k/uL Basophils # (0-0.2) k/uL Sodium (137-145) mmol/L Potassium (3.5-5.1) mmol/L Chloride (98-107) mmol/L Carbon Dioxide (22-30) mmol/L Anion Gap mmol/L BUN (7-17) mg/dL Creatinine (0.52-1.04) mg/dL Est GFR (CKD-EPI)AfAm (>60 ml/min/1.73 sqM) Est GFR (CKD-EPI)NonAf (>60 ml/min/1.73 sqM) Glucose (74-99) mg/dL Plasma Lactic Acid Eduardo (0.7-2.0) mmol/L Calcium (8.4-10.2) mg/dL Total Bilirubin (0.2-1.3) mg/dL AST (14-36) U/L ALT (9-52) U/L Alkaline Phosphatase (38-126) U/L Troponin I 0.016 (0.000-0.034) ng/mL Total Protein (6.3-8.2) g/dL Albumin (3.5-5.0) g/dL Amylase (30-110) U/L Lipase (23-300) U/L Critical Care Time Critical Care Time: Yes Total Critical Care Time: 35 Disposition Clinical Impression: Incarcerated hernia, Lactic acidosis, Small bowel obstruction Disposition: ADMITTED IP TO THIS HOSP Referrals: Elieser Cooper DO [Primary Care Provider] - 1-2 days Time of Disposition: 20:02
[2019-01-21 18:55] LABS: Albumin 4.7 g/dL (3.5-5.0); Calcium 10.3 mg/dL (8.4-10.2); Potassium 4.7 mmol/L (3.5-5.1); Total Bilirubin 2.4 mg/dL (0.2-1.3); Total Protein 8.1 g/dL (6.3-8.2)
--- NOTE | 2019-01-21 18:57 | CT ---
EXAMINATION TYPE: CT abdomen pelvis wo con DATE OF EXAM: 01/21/2019 COMPARISON: None HISTORY: Abdominal and back pain. Vomiting. CT DLP: 1319.4 mGycm Automated exposure control for dose reduction was used. TECHNIQUE: Helical acquisition of images was performed from the lung bases through the pelvis. FINDINGS: There is some mild atelectasis at the lung bases. Heart is moderately enlarged. Liver shows no focal defect. There are multiple calcified gallstones. Spleen is intact. There is no pancreatic mass. The b ile ducts are not dilated. There is a large right-sided ventral hernia that contains multiple bowel l oops. There are some dilated fluid-filled loops of small bowel that measure up to 4.5 cm. This hernia is a periumbilical hernia. There is fat stranding around the anterior abdomen. The distal ileum is n ot dilated. Appendix appears normal. There are numerous diverticula in the sigmoid colon. Bladder dis tends smoothly. There is no free fluid in the pelvis. Kidneys have normal size and contour. There is no hydronephrosis. There are few right side renal calc josette up to 5 mm. There is no evidence of a solid renal mass. There is tiny calculus posterior left kid mathieu. There is no ascites. There is no sign of free air. There is a degenerative first-degree L4-5 spo ndylolisthesis. There is no spondylolysis. IMPRESSION: THERE IS LARGE INCARCERATED PERIUMBILICAL HERNIA THAT CONTAINS MULTIPLE BOWEL LOOPS. THERE IS SMALL B OWEL DILATION SUGGESTIVE OF MECHANICAL BOWEL OBSTRUCTION RELATED TO THE HERNIA. MULTIPLE NONOBSTRUCTING RENAL CALCULI. CHOLELITHIASIS. MODERATELY SEVERE CARDIOMEGALY.
[2019-01-21 19:02] LABS: Basophils % (A) 0 %; Eosinophils % (A) 0 %; HCT 45.1 % (34.0-46.0); HGB 14.9 gm/dL (11.4-16.0); Lymphocytes # (A) 0.4 k/uL (1.0-4.8); Lymphocytes % (A) 4 %; MCH 29.2 pg (25.0-35.0); Mean Platelet Volume 9.6; Monocytes # (A) 0.3 k/uL (0-1.0); Monocytes % (A) 3 %; Neutrophils # (A) 8.7 k/uL (1.3-7.7); Neutrophils % (A) 92 %; Platelet Count 144 k/uL (150-450); RDW 15.9 % (11.5-15.5); WBC 9.5 k/uL (3.8-10.6)
[2019-01-21 19:17] LABS: MCV 88.4 fL (80.0-100.0)
[2019-01-21] MEDS ORDERED: PIPERACILLIN-TAZOBACTAM 3.375 GM in SODIUM CHLORIDE 0.9% 100 ML IVPB STA (19:55)
[2019-01-21] MEDS ORDERED: SODIUM CHLORIDE 0.9% 1,000 ML IV ONE ×2 (19:57→20:03)
--- NOTE | 2019-01-21 20:56 | XR ---
EXAMINATION TYPE: XR chest 1V portable DATE OF EXAM: 01/21/2019 COMPARISON: 12/26/2018 HISTORY: Check tube placement TECHNIQUE: Single frontal view of the chest is obtained. FINDINGS: Heart is enlarged. There is mild pulmonary congestion. There is left axillary pacemaker. T here is nasogastric tube with the tip in the gastric fundus. There is slight blunting right costophre akua angle. IMPRESSION: Mild congestive heart failure that is improved compared to last exam. NG tube in good po sition.
[2019-01-21] MEDS ORDERED: ROCURONIUM BROMIDE 10 MG/ML 10 ML VIAL IV ONE (21:11)
[2019-01-21] MEDS ORDERED: MIDAZOLAM 2 MG/2 ML VIAL ONE (21:11)
[2019-01-21] MEDS ORDERED: GLYCOPYRROLATE 0.2 MG/ML 2 ML VIAL ONE (21:11)
[2019-01-21] MEDS ORDERED: SUCCINYLCHOLINE CHLORIDE VIAL 200 MG/10 ML VIAL IV ONE (21:11)
[2019-01-21] MEDS ORDERED: NEOSTIGMINE 1 MG/ML 10 ML VIAL ONE (21:11)
[2019-01-21] MEDS ORDERED: fentaNYL (PF) 50 MCG/ML 2 ML AMP ONE (21:11)
[2019-01-21] MEDS ORDERED: PHENYLEPHRINE-0.9% NACL SYG 1 MG/10 ML SYRINGE ONE (21:11)
[2019-01-21] MEDS ORDERED: ETOMIDATE 2 MG/ML 10 ML VIAL ONE (21:11)
[2019-01-21] MEDS ORDERED: LACTATED RINGERS 1,000 ML IV ONE ×3 (21:20→22:29)
--- NOTE | 2019-01-21 21:21 | P.GSHP ---
History of Present Illness H&P Date: 01/21/19 Chief Complaint: Nausea vomiting, abdominal pain This is a 68-year-old female who was admitted through the emergency room. Patient complaints of abdominal pain severe nausea vomiting. Patient's found have an incarcerated ventral hernia with a large amount of small bowel within the hernia. 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 Past Anesthesia/Blood Transfusion Reactions: No Reported Reaction Type of Cardiac Device: Permanent Pacemaker Device Placement Date:: 04/24/2013 placed and gen change in May 2017 Past Psychological History: Anxiety, Depression, PTSD Smoking Status: Never smoker Past Alcohol Use History: Rare Past Drug Use History: None Reported - Past Family History Father Additional Family Medical History / Comment(s): BRAIN ANEURYSM Mother Family Medical History: Coronary Artery Disease (CAD), Dementia Additional Family Medical History / Comment(s): FROM "HEART DISEASE" PER PATIENT. Medications and Allergies Home Medications Medication Instructions Recorded Confirmed Type Atorvastatin [Lipitor] 40 mg PO HS 05/29/17 01/21/19 History Furosemide [Lasix] 80 mg PO BID@0900,1600 30 Days #60 12/30/18 01/21/19 Rx tab Losartan [Cozaar] 12.5 mg PO DAILY 30 Days #30 tab 12/30/18 01/21/19 Rx Metoprolol Tartrate [Lopressor] 25 mg PO BID 30 Days #60 tab 12/30/18 01/21/19 Rx Acetaminophen [Tylenol] 650 mg PO Q6H PRN 01/21/19 01/21/19 History Magnesium Hydroxide [Milk of 2,400 mg PO Q72H PRN 01/21/19 01/21/19 History Magnesia] Potassium Chloride ER [K-Dur 20] 20 meq PO BID@0800,2000 01/21/19 01/21/19 History Spironolactone 50 mg PO DAILY 01/21/19 01/21/19 History Tolnaftate [Tolnaftate 1%] 1 applic TOPICAL TID PRN 01/21/19 01/21/19 History Allergies Allergy/AdvReac Type Severity Reaction Status Date / Time aspirin AdvReac Unknown STATES SHE Verified 01/21/19 20:24 WAS TOLD NOT TO TAKE. Iodinated Contrast Media AdvReac Unknown STATES SHE Verified 01/21/19 20:24 [Iodinated Contrast- Oral WAS TOLD and IV Dye] TO AVOID NSAIDS (Non-Steroidal AdvReac Unknown STATES SHE Verified 01/21/19 20:24 Anti-Inflamma WAS TOLD TO AVOID Surgical - Exam Vital Signs Temp Pulse Resp BP Pulse Ox 97 F L 102 H 18 138/109 95 01/21/19 17:45 01/21/19 17:45 01/21/19 17:45 01/21/19 17:45 01/21/19 17:45 - General well developed, well nourished, no distress - Eyes PERRL - ENT normal pinna - Neck no masses - Respiratory normal expansion - Cardiovascular Rhythm: regular - Abdomen Abdomen is distended. There is marked tenderness throughout. There is a large supraumbilical mass containing bowel. Abdomen: soft Results - Labs 01/21/19 18:40 01/21/19 18:40 Abnormal Lab Results - Last 24 Hours (Table) 01/21/19 01/21/19 01/21/19 Range/Units 18:40 18:40 18:40 RDW 15.9 H (11.5-15.5) % Plt Count 144 L (150-450) k/uL Neutrophils # 8.7 H (1.3-7.7) k/uL Lymphocytes # 0.4 L (1.0-4.8) k/uL BUN 24 H (7-17) mg/dL Creatinine 1.34 H (0.52-1.04) mg/dL Glucose 134 H (74-99) mg/dL Plasma Lactic Acid Eduardo 2.7 H* (0.7-2.0) mmol/L Calcium 10.3 H (8.4-10.2) mg/dL Total Bilirubin 2.4 H (0.2-1.3) mg/dL Diabetes panel 01/21/19 Range/Units 18:40 Sodium 141 (137-145) mmol/L Potassium 4.7 (3.5-5.1) mmol/L Chloride 98 (98-107) mmol/L Carbon Dioxide 25 (22-30) mmol/L BUN 24 H (7-17) mg/dL Creatinine 1.34 H (0.52-1.04) mg/dL Glucose 134 H (74-99) mg/dL Calcium 10.3 H (8.4-10.2) mg/dL AST 36 (14-36) U/L ALT 26 (9-52) U/L Alkaline Phosphatase 109 (38-126) U/L Total Protein 8.1 (6.3-8.2) g/dL Albumin 4.7 (3.5-5.0) g/dL Calcium panel 01/21/19 Range/Units 18:40 Calcium 10.3 H (8.4-10.2) mg/dL Albumin 4.7 (3.5-5.0) g/dL Pituitary panel 01/21/19 Range/Units 18:40 Sodium 141 (137-145) mmol/L Potassium 4.7 (3.5-5.1) mmol/L Chloride 98 (98-107) mmol/L Carbon Dioxide 25 (22-30) mmol/L BUN 24 H (7-17) mg/dL Creatinine 1.34 H (0.52-1.04) mg/dL Glucose 134 H (74-99) mg/dL Calcium 10.3 H (8.4-10.2) mg/dL Adrenal panel 01/21/19 Range/Units 18:40 Sodium 141 (137-145) mmol/L Potassium 4.7 (3.5-5.1) mmol/L Chloride 98 (98-107) mmol/L Carbon Dioxide 25 (22-30) mmol/L BUN 24 H (7-17) mg/dL Creatinine 1.34 H (0.52-1.04) mg/dL Glucose 134 H (74-99) mg/dL Calcium 10.3 H (8.4-10.2) mg/dL Total Bilirubin 2.4 H (0.2-1.3) mg/dL AST 36 (14-36) U/L ALT 26 (9-52) U/L Alkaline Phosphatase 109 (38-126) U/L Total Protein 8.1 (6.3-8.2) g/dL Albumin 4.7 (3.5-5.0) g/dL Assessment and Plan Assessment: Incarcerated ventral hernia. Patient will undergo exploratory laparotomy tonight. The risk of bowel resection has been discussed the patient's family.
[2019-01-21] MEDS ORDERED: ACETAMINOPHEN TAB 325 MG TAB PO PRN (22:29)
[2019-01-21] MEDS ORDERED: NALOXONE 0.4 MG/ML 1 ML VIAL IV PRN (22:29)
--- NOTE | 2019-01-21 22:35 | P.OP ---
Date of Procedure: 01/21/19 Preoperative Diagnosis: Incarcerated ventral hernia Postoperative Diagnosis: Strangulated of ventral hernia with ischemic small bowel Incarcerated umbilical hernia Procedure(s) Performed: Exploratory laparotomy Small bowel resection Repair of strangulated ventral hernia Repair of incarcerated umbilical hernia Partial omentectomy Anesthesia: FLORENTINO Surgeon: Oren Clement Estimated Blood Loss (ml): 10 Pathology: other (Small bowel, omentum, incarcerated umbilical hernia, ventral hernia sac) Condition: stable Disposition: PACU Description of Procedure: The patient's placed the operative table in the supine position. She received general anesthesia. Her abdomen was prepped and draped usual fashion. The abdomen was entered through a midline incision. There was a large incarcerated ventral hernia. The hernia sac was dissected free from some taste tissues. The hernia sac was then opened. There was serosanguineous ascites within the hernia sac. There is also evidence of gangrenous small bowel. The hernia sac was opened and then the neck of the hernia was opened. There was internal hernia within the ventral hernia. Creating a strangulated segment of small bowel. The small bowel resected by using the GI stapler and the Enseal device. A [id number] functional end-to-end staple anastomosis created using the MARTHA and TA staplers. Another incarcerated umbilical hernia was seen. This contained pressured omentum. The hernia sac was dissected free the omentum was within the hernia sac this was transected with the Enseal device. The hernia was quite large measured prostate 4 cm diameter and 10 cm in length with. The umbilicus was taken with the hernia. The specimens of pathology. At this point the fascia was closed with looped #1 PDS suture. The suture was used to repair both the ventral and umbilical hernia. A JESSIKA drain is placed in the subcutaneous tissues. This was brought through separate stab incision. The skin was closed alesha. Patient top she will was sent to recovery room in stable condition.
[2019-01-21] MEDS: HYDROmorphone 0.5 MG/0.5 ML SYRINGE IVP ONE ×2 (23:20→23:27)
[2019-01-22] LABS: Glucose,Whole Blood 117 mg/dL (75-99)
[2019-01-22] MEDS ORDERED: SODIUM CHLORIDE 0.9% 2,000 ML IV ONE (02:46)
[2019-01-22 04:56] LABS: Basophils % (A) 0 %; Eosinophils # (A) 0.1 k/uL (0-0.7); Eosinophils % (A) 1 %; HCT 37.1 % (34.0-46.0); Hypochromasia Slight; Lymphocytes # (A) 0.5 k/uL (1.0-4.8); Lymphocytes % (A) 4 %; MCH 29.9 pg (25.0-35.0); MCHC 32.4 g/dL (31.0-37.0); MCV 92.5 fL (80.0-100.0); Mean Platelet Volume 9.4; Monocytes # (A) 0.9 k/uL (0-1.0); Monocytes % (A) 7 %; Neutrophils # (A) 12.4 k/uL (1.3-7.7); Neutrophils % (A) 87 %; Platelet Count 119 k/uL (150-450); RBC 4.01 m/uL (3.80-5.40); RDW 15.8 % (11.5-15.5); WBC 14.2 k/uL (3.8-10.6)
[2019-01-22 05:10] LABS: Albumin 3.3 g/dL (3.5-5.0); Calcium 8.4 mg/dL (8.4-10.2); Potassium 5.2 mmol/L (3.5-5.1); Total Bilirubin 1.7 mg/dL (0.2-1.3); Total Protein 6.1 g/dL (6.3-8.2)
[2019-01-22] MEDS: HYDROmorphone 0.5 MG/0.5 ML SYRINGE IVP PRN ×3 (05:14→23:56)
[2019-01-22] MEDS: NOREPINEPHRINE 4 MG in SODIUM CHLORIDE 0.9% 250 ML IV SCH (06:30)
[2019-01-22] MEDS ORDERED: SODIUM CHLORIDE 0.9% 1,000 ML IV ONE (07:07)
--- NOTE | 2019-01-22 07:39 | XR ---
EXAMINATION TYPE: XR chest 1V DATE OF EXAM: 01/22/2019 COMPARISON: 01/21/2019 HISTORY: Congestive heart failure TECHNIQUE: Single frontal view of the chest is obtained. FINDINGS: There is improved aeration of the lungs. Cardiomediastinal silhouette is enlarged with mul tilead left-sided cardiac device. Enteric tube appears stable in placement. This appears to extend pa st the [id number]. No sizable pneumothorax. Subtle blunting of the left costophrenic angle is impr edward aeration of the right. IMPRESSION: Overall improved aeration of the lungs with trace left pleural effusion remaining.
[2019-01-22] MEDS: PIPERACILLIN-TAZOBACTAM 3.375 GM in SODIUM CHLORIDE 0.9% 100 ML IVPB SCH ×3 (08:52→23:29)
[2019-01-22] MEDS ORDERED: ENOXAPARIN 30 MG/0.3 ML SYRINGE SQ SCH (09:00)
[2019-01-22] MEDS: SODIUM CHLORIDE 0.9% 1,000 ML IV SCH ×3 (10:00→23:30)
--- NOTE | 2019-01-22 11:41 | CDI ---
Documentation Clarification Form Date: 01/22/2019 11:29:54 AM From: Christine Daniels RN CCDS Admit Date: 01/21/2019 8:03:00 PM Patient Name: Ana Sheppard Visit Number: [id number] Discharge Date: ATTENTION: The Clinical Documentation Specialists (CDI) and [facility] Coding Staff appreciate your assistance in clarifying documentation. Please respond to the clarification below the line at the bottom and electronically sign. The CDI & [facility] Coding staff will review the response and follow-up if needed. Please note: Queries are made part of the Legal Health Record. If you have any questions, please contact the author of this message via ITS. Dr. Oren Clement Heart Failure is documented in the H&P under medical history 01/21/2019 History/Risk Factors: 68-year-old female presents to the ED with abdominal pain with vomiting. Medical history Atrial Fibrillation, Heart Failure Clinical Indicators: VS/Pulse OX: 138/109 102 97.0 18 95% ra Echocardiogram Results:12/19/2018 Moderate concentric left ventricular hypertrophy. Left ventricular systolic function is normal with an EF between 65% - 70% there is septal flattening is diastole and systole which is consistent with right ventricular pressure and volume overload Chest X Ray:01/21/2019 mild congestive heart failure that is improved compared to prior exam. Treatment: Home Medications include Lasix 80mg po bid; Spironolactone 50mg po daily; Cozaar 12.5mg po daily In your professional opinion, can you please clarify the acuity and type of CHF if known? * Chronic Diastolic Heart Failure * Heart failure ruled out * Unable to Determine * Other, please specify (Last Revision: June 2017) Unable to determine MTDD
[2019-01-22 11:56] LABS: Appearance,Urine Turbid (Clear); Bacteria,Urine Few /hpf; Bilirubin,Urine Negative (Negative); Blood,Urine Moderate (Negative); Color,Urine Dark Brown; Glucose,Urine (UA) Negative (Negative); Ketones,Urine Negative (Negative); Leukocyte Esterase,Urine Large (Negative); Nitrite,Urine Negative (Negative); PH, Urine 5.5 (5.0-8.0); Protein,Urine 2+ (Negative); RBC,Urine >182 /hpf (0-5); Specific Gravity,Urine 1.017 (1.001-1.035); Squamous Epithelial Cell,Urine 4 /hpf (0-4); Urobilinogen,Urine <2.0 mg/dL (<2.0)
--- NOTE | 2019-01-22 13:29 | P.PN ---
Subjective Progress Note Date: 01/22/19 CHIEF COMPLAINT: Abdominal pain HISTORY OF PRESENT ILLNESS: 68-year-old female who is status post exploratory laparotomy, small bowel resection, repair of strangulated ventral hernia, repair of incarcerated umbilical hernia, and partial omentectomy with Dr. Clement. Postop day #1. Patient examined this morning in the ICU. She reports her abdominal pain is tolerable. Denies nausea. NG to LIS with minimal output. Denies passing flatus. JESSIKA with 140 mL sanguinous drainage thus far today. Hemoglobin 12.0, down from 14.9. Patient has received 3L in fluid boluses. Urinary output has been marginal but improving per nursing. She is on Levophed at 4mcg currently. PHYSICAL EXAM: VITAL SIGNS: Reviewed. GENERAL: Well-developed in no acute distress. HEENT: NG to LIS. No sclera icterus. Extraocular movements grossly intact. Moist buccal mucosa. Head is atraumatic, normocephalic. ABDOMEN: Obese. Soft. Nondistended. Midline incision with shadowing present. JESSIKA drain with sanguinous drainage. Abdominal binder present. NEUROLOGIC: Alert and oriented. Cranial nerves II through XII grossly intact. ASSESSMENT: 1. Strangulated ventral hernia with ischemic small bowel and incarcerated umbilical hernia, s/p exploratory laparotomy, small bowel resection, repair of strangulated ventral hernia, repair of incarcerated umbilical hernia, and partial omentectomy 2. Acute blood loss anemia, secondary to surgery, expected PLAN: 1. Continue ICU management per Dr. Magaña 2. Continue IV fluids. Wean levophed as tolerated to maintain MAP greater than 65. 3. Continue montes catheter for strict I&O 4. Continue NG to LIS. Nursing to advance NG slightly. 5. NPO except ice chips 6. Obtain incentive spirometer. Patient encouraged to use 10 times an hour while awake 7. Consult PT/OT Nurse practitioner note has been reviewed by physician. Signing provider agrees with the documented findings, assessment, and plan of care. Objective - Vital Signs Vital signs: Vital Signs Temp 97.6 F 01/22/19 07:45 Pulse 101 H 01/22/19 11:00 Resp 11 L 01/22/19 11:00 BP 95/73 01/22/19 11:00 Pulse Ox 94 L 01/22/19 11:00 Intake & Output 1101/22/19 01/22/19 18:59 06:59 18:59 Intake Total 3400 1742.432 Output Total 455 335 Balance 2945 1407.432 Weight 127.006 kg 103.6 kg Intake: IV 3400 1700 Lactated Ringers 1,000 ml 750 250 @ 150 mls/hr IV .Q6H40M [facility] Rx#:[id number] Sodium Chloride 0.9% 1, 200 000 ml @ 100 mls/hr IV . Q10H [facility] Rx#:[id number] Sodium Chloride 0.9% 1, 250 000 ml @ 150 mls/hr IV . Q6H40M [facility] Rx#:[id number] Sodium Chloride 0.9% 1, 1000 1200 000 ml @ 999 mls/hr IV . Q1H1M [facility] Rx#:[id number] Intake, IV Titration 42.432 Amount Norepinephrine 4 mg In 42.432 Sodium Chloride 0.9% 250 ml @ 0.05 MCG/KG/MIN 19. 736 mls/hr IV .[id number] [facility] Rx#:[id number] Output: Drainage 30 30 Abdomen 30 30 Urine 225 305 Estimated Blood Loss 200 Other: Voiding Method Indwelling Catheter - Labs CBC & Chem 7: 01/22/19 04:43 01/22/19 04:43 Labs: Abnormal Lab Results - Last 24 Hours (Table) 01/21/19 01/21/19 01/21/19 Range/Units 18:40 18:40 18:40 WBC (3.8-10.6) k/uL RDW 15.9 H (11.5-15.5) % Plt Count 144 L (150-450) k/uL Neutrophils # 8.7 H (1.3-7.7) k/uL Lymphocytes # 0.4 L (1.0-4.8) k/uL Potassium (3.5-5.1) mmol/L BUN 24 H (7-17) mg/dL Creatinine 1.34 H (0.52-1.04) mg/dL Glucose 134 H (74-99) mg/dL POC Glucose (mg/dL) (75-99) mg/dL Plasma Lactic Acid Eduardo 2.7 H* (0.7-2.0) mmol/L Calcium 10.3 H (8.4-10.2) mg/dL Total Bilirubin 2.4 H (0.2-1.3) mg/dL Total Protein (6.3-8.2) g/dL Albumin (3.5-5.0) g/dL 01/21/19 01/22/19 01/22/19 Range/Units 23:49 04:43 04:43 WBC 14.2 H (3.8-10.6) k/uL RDW 15.8 H (11.5-15.5) % Plt Count 119 L (150-450) k/uL Neutrophils # 12.4 H (1.3-7.7) k/uL Lymphocytes # 0.5 L (1.0-4.8) k/uL Potassium 5.2 H (3.5-5.1) mmol/L BUN 27 H (7-17) mg/dL Creatinine 1.25 H (0.52-1.04) mg/dL Glucose 107 H (74-99) mg/dL POC Glucose (mg/dL) 117 H (75-99) mg/dL Plasma Lactic Acid Eduardo (0.7-2.0) mmol/L Calcium (8.4-10.2) mg/dL Total Bilirubin 1.7 H (0.2-1.3) mg/dL Total Protein 6.1 L (6.3-8.2) g/dL Albumin 3.3 L (3.5-5.0) g/dL
--- NOTE | 2019-01-22 16:19 | P.CNPUL ---
History of Present Illness Consult date: 01/22/19 Chief complaint: Abdominal pain History of present illness: This is a 68-year-old female patient who came into the emergency department yesterday because of an acute abdominal pain. The patient had severe abdominal pain associated with some nausea and vomiting. The patient was seen by general surgery. The patient underwent a CAT scan of the abdomen and pelvis in the emergency department and the patient was found to have a large incarcerated umbilical hernia that contained multiple bowel loops. There was a small bowel dilatation suggestive of mechanical bowel obstruction related to the hernia. At that point, the patient a white cell count of 9.5. The patient left against level was at 2.4. The patient's creatinine was at 1.34. The patient was taken to the operating room and the patient was found to have incarcerated/strangulate d ventral hernia with ischemic small bowel. A slight laparotomy was done. The patient underwent repair of a significant ventral hernia. The patient underwent a repair of the incarcerated umbilical hernia. Partial omentectomy was done. Estimated blood loss was less than 10 mL. The JESSKIA drain was placed and following that the patient was brought into the intensive care unit. The patient overnig ht required a total of 3 L of IV fluids for hemodynamic support. She was becoming hypotensive. She received maintenance IV fluids and currently she is on normal saline at the rate of 150 mL an hour. Levo fed was also added at a dose of 0.05 mg per KG per minute which is minimal at this point in time. The patient is covered with antibiotics and currently is on IV Zosyn. She is awake and alert. No signs of any significant respiratory distress. No bowel sounds are activity at this point in time. No major edema lower extremities. No angina. No altered mentation. Family is at the bedside. Lactic acid level has dropped down to 1.4. The patient's kidney function is also improved and the patient's creatinine is down to 1.25. Rest of the liver function tests are all within normal limits. Review of Systems Constitutional: Reports lethargy, Reports night sweats Eyes: denies as per HPI, denies blurred vision, denies bulging eye, denies decreased vision, denies diplopia, denies discharge, denies dry eye, denies irritation, denies itching, denies pain, denies photophobia, denies loss of peripheral vision, denies loss of vision, denies tunnel vision/blind spots Ears: deny: decreased hearing, ear discharge, earache, tinnitus Ears, nose, mouth and throat: Denies headache, Denies sore throat Breasts: absent: as per HPI, change in shape, gynecomastia, masses, nipple discharge, pain, skin changes, swelling Cardiovascular: Reports decreased exercise tolerance, Reports dyspnea on exertion, Reports irregular heart beat, Reports shortness of breath (Chronic shortness of breath and exertional dyspnea) Respiratory: Reports dyspnea Gastrointestinal: Reports abdominal pain, Reports loss of appetite, Reports nausea, Reports vomiting Genitourinary: Reports as per HPI Menstruation: Reports as per HPI Musculoskeletal: Reports as per HPI Musculoskeletal: bilateral: ankle swelling, absent: ankle pain, ankle stiffness Integumentary: Denies pruritus, Denies rash Neurological: Reports as per HPI, Reports weakness Psychiatric: Reports as per HPI Endocrine: Reports as per HPI, Reports fatigue Hematologic/Lymphatic: Reports as per HPI Allergic/Immunologic: Reports as per HPI Past Medical History Past Medical History: Atrial Fibrillation, Heart Failure, CVA/TIA, Eye Disorder, GERD/Reflux, GI Bleed, Hyperlipidemia, Hypertension, Osteoarthritis (OA), Skin Disorder Additional Past Medical History / Comment(s): CVA with previous history of left- sided weakness and impaired speech, right-sided heart failure with significant pulmonary hypertension and a preserved LV function, chronic atrial fibrillation, hyperlipidemia, hypertension, osteoarthritis, benign colonic polyps, diverticulosis, previous history of GI bleed, chronic knee pain and lower extremities bilaterally, severe pulmonary hypertension/cor pulmonale, moderate mitral regurgitation and severe tricuspid regurgitation and mitral valve prolapse related to non-rheumatologic, diverticulosis, depression, morbid obesity with a BMI of 46.1.occasional back pain and R sided sciatica History of Any Multi-Drug Resistant Organisms: None Reported Past Surgical History: Joint Replacement, Pacemaker, Tonsillectomy Additional Past Surgical History / Comment(s): 04/24/13 BiV pacemaker and had gen change in May 2017, cardioversion, cardiac cath in 2012 without intervention, LEFT TOTAL KNEE WITH BONE GRAFT, D&C, colonoscopy. Past Anesthesia/Blood Transfusion Reactions: No Reported Reaction Type of Cardiac Device: Permanent Pacemaker Device Placement Date:: 04/24/2013 placed and gen change in May 2017 Past Psychological History: Anxiety, Depression, PTSD Smoking Status: Never smoker Past Alcohol Use History: Rare Past Drug Use History: None Reported - Past Family History Father Additional Family Medical History / Comment(s): BRAIN ANEURYSM Mother Family Medical History: Coronary Artery Disease (CAD), Dementia Additional Family Medical History / Comment(s): FROM "HEART DISEASE" PER PATIENT. Medications and Allergies Home Medications Medication Instructions Recorded Confirmed Type Atorvastatin [Lipitor] 40 mg PO HS 05/29/17 01/21/19 History Furosemide [Lasix] 80 mg PO BID@0900,1600 30 Days #60 12/30/18 01/21/19 Rx tab Losartan [Cozaar] 12.5 mg PO DAILY 30 Days #30 tab 12/30/18 01/21/19 Rx Metoprolol Tartrate [Lopressor] 25 mg PO BID 30 Days #60 tab 12/30/18 01/21/19 Rx Acetaminophen [Tylenol] 650 mg PO Q6H PRN 01/21/19 01/21/19 History Magnesium Hydroxide [Milk of 2,400 mg PO Q72H PRN 01/21/19 01/21/19 History Magnesia] Potassium Chloride ER [K-Dur 20] 20 meq PO BID@0800,199901/21/19 01/21/19 History Spironolactone 50 mg PO DAILY 01/21/19 01/21/19 History Tolnaftate [Tolnaftate 1%] 1 applic TOPICAL TID PRN 01/21/19 01/21/19 History Allergies Allergy/AdvReac Type Severity Reaction Status Date / Time aspirin AdvReac Unknown STATES SHE Verified 01/21/19 20:24 WAS TOLD NOT TO TAKE. Iodinated Contrast Media AdvReac Unknown STATES SHE Verified 01/21/19 20:24 [Iodinated Contrast- Oral WAS TOLD and IV Dye] TO AVOID NSAIDS (Non-Steroidal AdvReac Unknown STATES SHE Verified 01/21/19 20:24 Anti-Inflamma WAS TOLD TO AVOID Physical Exam Vitals: Vital Signs Temp Pulse Pulse Resp BP BP Pulse Ox 01/22/19 15:00 120 H 17 108/70 96 01/22/19 14:45 117 H 23 101/71 96 01/22/19 14:30 105 H 17 99/68 96 01/22/19 14:15 110 H 18 79/54 97 01/22/19 14:00 121 H 15 91/61 97 01/22/19 13:45 121 H 14 93/49 96 01/22/19 13:30 113 H 14 102/61 96 01/22/19 13:15 104 H 18 106/69 97 01/22/19 13:00 122 H 21 101/68 99 01/22/19 12:45 110 H 12 107/69 96 01/22/19 12:30 105 H 17 89/62 99 01/22/19 12:15 109 H 16 84/65 96 01/22/19 12:00 107 H 12 94/66 95 01/22/19 11:45 112 H 15 105/72 97 01/22/19 11:30 113 H 22 90/67 97 01/22/19 11:15 111 H 14 96/63 97 01/22/19 11:00 101 H 11 L 95/73 94 L 01/22/19 10:45 109 H 15 102/66 97 01/22/19 10:30 112 H 18 95/61 95 01/22/19 10:15 105 H 13 90/59 94 L 01/22/19 10:00 117 H 14 85/64 95 01/22/19 09:45 106 H 13 85/69 94 L 01/22/19 09:30 100 12 85/65 94 L 01/22/19 09:15 107 H 13 97/73 94 L 01/22/19 09:00 103 H 12 92/63 95 01/22/19 08:45 104 H 11 L 109/95 94 L 01/22/19 08:30 98 12 101/58 95 01/22/19 08:15 104 H 11 L 102/70 94 L 01/22/19 08:00 112 H 14 90/68 95 01/22/19 07:45 97.6 F 105 H 11 L 99/61 97 01/22/19 07:40 21 01/22/19 07:30 105 H 12 87/52 95 01/22/19 07:15 105 H 11 L 84/60 94 L 01/22/19 07:00 101 H 11 L 84/67 95 01/22/19 06:45 105 H 12 79/58 94 L 01/22/19 06:30 125 H 14 66/38 94 L 01/22/19 06:15 129 H 12 62/41 94 L 11/06/19 06:00 128 H 11 L 89/72 95 01/22/19 05:30 12 86/68 96 01/22/19 05:00 113 H 16 90/59 97 01/22/19 04:30 107 H 17 83/62 97 01/22/19 04:00 98 F 121 H 20 85/54 97 01/22/19 03:30 107 H 16 95/60 97 01/22/19 03:00 104 H 17 84/37 96 01/22/19 02:30 112 H 16 88/64 95 01/22/19 02:00 112 H 15 86/67 93 L 01/22/19 01:30 105 H 18 80/61 94 L 01/22/19 01:00 110 H 17 76/57 95 01/22/19 00:30 112 H 16 99/60 94 L 01/22/19 00:00 97.7 F 117 H 20 102/85 93 L 01/21/19 23:55 94 L 01/21/19 23:30 120 H 20 146/79 93 L 01/21/19 23:15 119 H 20 148/70 100 01/21/19 22:58 98.8 F 142 H 22 140/77 95 01/21/19 21:30 100 18 107/63 93 L 01/21/19 19:25 93 L 01/21/19 19:00 108 H 16 141/98 92 L 01/21/19 17:45 97 F L 102 H 18 138/109 95 Intake and Output 01/22/19 01/22/19 01/22/19 06:59 14:59 22:59 Intake Total 2100 2237.429 150 Output Total 205 585 45 Balance 1895 1652.429 105 Intake: IV 2100 2150 150 Lactated Ringers 1,000 ml 750 250 @ 150 mls/hr IV .Q6H40M [facility] Rx#:[id number] Sodium Chloride 0.9% 1, 200 000 ml @ 100 mls/hr IV . Q10H [facility] Rx#:[id number] Sodium Chloride 0.9% 1, 700 150 000 ml @ 150 mls/hr IV . Q6H40M [facility] Rx#:[id number] Sodium Chloride 0.9% 1, 1000 1200 000 ml @ 999 mls/hr IV . Q1H1M [facility] Rx#:[id number] Intake, IV Titration 87.429 Amount Norepinephrine 4 mg In 87.429 Sodium Chloride 0.9% 250 ml @ 0.05 MCG/KG/MIN 19. 736 mls/hr IV .[id number] [facility] Rx#:[id number] Output: Gastric Drainage 100 Drainage 30 70 Abdomen 30 70 Urine 175 415 45 Other: Voiding Method Indwelling Catheter Indwelling Catheter Weight 103.6 kg Morbidly obese, comfortable likely distress. The patient has an NG tube in place. Head exam was generally normal. There was no scleral icterus or corneal arcus. Mucous membranes were moist. Neck was supple and without jugular venous distension, thyromegaly, or carotid bruits. Carotids were easily palpable bilaterally. There was no adenopathy. Mallampati class IV and the patient has significant crowding of posterior oropharynx. Lungs sounds are diminished in lung bases bilaterally otherwise clear. Heart sounds reveal accentuation of second heart sound. It's irregular S1-S2. No significant right ventricular heave or thrill. The patient has a grade 2 systolic ejection murmur in the left lateral sternal border. Abdomen is obese soft nontender. No direct tenderness or rebound tensile guarding at this point in time. Bowel sounds are absent. Surgical wound site over the mid abdominal wall is dry clean and intact. JESSIKA drain is in place. Output is serosanguineous. Examination of the extremities revealed easily palpable radial, femoral and pedal pulses. There was no cyanosis, clubbing there is trace edema in lower extremity bilaterally and poor toenail hygiene Neurologically the patient is awake and alert and is no focal neurological deficit. Examination of the skin revealed no evidence of significant rashes, suspicious appearing nevi or other concerning lesions. The wound over the anterior abdominal wall is dry clean and intact and there is no evidence of any bleeding. Results - Laboratory Findings CBC and BMP: 01/22/19 04:43 01/22/19 04:43 Abnormal lab findings: Abnormal Labs 01/21/19 01/21/19 01/21/19 18:40 18:40 18:40 WBC RDW 15.9 H Plt Count 144 L Neutrophils # 8.7 H Lymphocytes # 0.4 L Potassium BUN 24 H Creatinine 1.34 H Glucose 134 H POC Glucose (mg/dL) Plasma Lactic Acid Eduardo 2.7 H* Calcium 10.3 H Total Bilirubin 2.4 H Total Protein Albumin Urine Appearance Urine Protein Urine Blood Ur Leukocyte Esterase Urine RBC Urine WBC Urine WBC Clumps Urine Bacteria 01/21/19 01/22/19 01/22/19 23:49 04:43 04:43 WBC 14.2 H RDW 15.8 H Plt Count 119 L Neutrophils # 12.4 H Lymphocytes # 0.5 L Potassium 5.2 H BUN 27 H Creatinine 1.25 H Glucose 107 H POC Glucose (mg/dL) 117 H Plasma Lactic Acid Eduardo Calcium Total Bilirubin 1.7 H Total Protein 6.1 L Albumin 3.3 L Urine Appearance Urine Protein Urine Blood Ur Leukocyte Esterase Urine RBC Urine WBC Urine WBC Clumps Urine Bacteria 01/22/19 11:15 WBC RDW Plt Count Neutrophils # Lymphocytes # Potassium BUN Creatinine Glucose POC Glucose (mg/dL) Plasma Lactic Acid Eduardo Calcium Total Bilirubin Total Protein Albumin Urine Appearance Turbid H Urine Protein 2+ H Urine Blood Moderate H Ur Leukocyte Esterase Large H Urine RBC >182 H Urine WBC >182 H Urine WBC Clumps Many H Urine Bacteria Few H - Diagnostic Findings Chest x-ray: image reviewed Assessment and Plan Plan: 1 incarcerated small bowel with strangulation and a large ventral hernia. The patient underwent small bowel resection, expiratory laparotomy, repair of ventral hernia with partial omentectomy and the patient is postop day #1 2 hypotension, he sustained IV fluids and the patient is also on low-dose pressors. 3 mild lactic acidosis, improving 4 acute kidney injury secondary to above, none oliguric in nature. Rule out prerenal factors versus ATN 5 morbid obesity with a BMI of 46.1 6 Cor pulmonale with severe pulmonary hypertension and right-sided heart failure 7 non-rheumatologic mitral regurgitation moderate in severity and severe tricuspid regurgitation 8 hyperlipidemia 9 hypertension 10 acid reflux 11 severe osteoarthritis 12 chronic diverticulosis 13 suspect chronic obesity hypoventilation syndrome/obstructive sleep apnea. 14 chronic medical deconditioning Plan Continue IV fluids with normal saline today to 150 mL an hour. Wean pressors. Continue IV Zosyn. The left for pain control. Lovenox for DVT prophylaxis. Monitor NG output. Keep the patient nothing by mouth for now. Monitor JESSIKA output. Keep the patient ICU for now. Discussed the case with general surgery. We'll follow.
[2019-01-22] MEDS ORDERED: SODIUM CHLORIDE 0.9% 500 ML 500 ML IV ONE (18:15)
[2019-01-23 05:59] LABS: Anisocytosis Slight; Basophils % (A) 0 %; Eosinophils % (A) 0 %; HCT 31.5 % (34.0-46.0); HGB 10.2 gm/dL (11.4-16.0); Hypochromasia Slight; Lymphocytes # (A) 0.4 k/uL (1.0-4.8); Lymphocytes % (A) 5 %; MCH 30.1 pg (25.0-35.0); MCHC 32.3 g/dL (31.0-37.0); MCV 93.4 fL (80.0-100.0); Mean Platelet Volume 8.9; Monocytes # (A) 0.6 k/uL (0-1.0); Monocytes % (A) 7 %; Neutrophils # (A) 7.2 k/uL (1.3-7.7); Neutrophils % (A) 86 %; Platelet Count 115 k/uL (150-450); RBC 3.38 m/uL (3.80-5.40); RDW 16.3 % (11.5-15.5); WBC 8.3 k/uL (3.8-10.6)
[2019-01-23 06:17] LABS: Potassium 4.5 mmol/L (3.5-5.1)
[2019-01-23] MEDS: HYDROmorphone 0.5 MG/0.5 ML SYRINGE IVP PRN (06:17)
--- NOTE | 2019-01-23 06:55 | P.CONS ---
History of Present Illness - Reason for Consult Consult date: 01/22/19 Abdominal infection Requesting physician: Oren Clement - Chief Complaint Abdominal pain and vomiting 1 day - History of Present Illness Patient is a 68-year-old female presenting to the ER at [facility] yesterday with a chief complaints of abdominal pain and vomiting of one days duration the patient described the pain to be more acute in onset and has been mostly in the mid abdominal area described the pain to be more of a sharp and colicky in nature with intensity of almost 10 out of 10 and no significant radiation but with associated nausea and vomiting the patient did have some chills but denies high-grade fever with these symptoms the patient was evaluated by the ER physician with a CT of abdominal pelvis suggestive of mechanical small bowel obstruction patient had did have a lactic acid of 2.4 and white count was 9.5 patient was subsequently evaluated by the surgery and was taken to the OR she was noticed to have strngulated ventral hernia with loops of bowel patient is status post repair of the ventral and a umbilical hernia the patient subsequently has been admitted to the ICU because of hypotension requiring fluid boluses patient was started on Zosyn and infectious disease was consulted for further recommendation for antibiotic therapy Patient has time of my evaluation today is afebrile, she has been complaining of some nausea but no further vomiting abdominal pain is currently controlled with the pain medication and denies having any chest pain shortness of breath or cough and no urinary symptoms Review of Systems Positive point has been mentioned in the HPI rest of the systems are negative 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 states that it left her with slower speech, cardiopmyopathy, bradycardia, nephrolithiasis-passed stones twice on her own, anemia, lower GI bleed, diverticulosis, benign colon polyps, 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 Past Anesthesia/Blood Transfusion Reactions: No Reported Reaction Type of Cardiac Device: Permanent Pacemaker Device Placement Date:: 04/24/2013 placed and gen change in May 2017 Past Psychological History: Anxiety, Depression, PTSD Smoking Status: Never smoker Past Alcohol Use History: Rare Past Drug Use History: None Reported - Past Family History Father Additional Family Medical History / Comment(s): BRAIN ANEURYSM Mother Family Medical History: Coronary Artery Disease (CAD), Dementia Additional Family Medical History / Comment(s): FROM "HEART DISEASE" PER PATIENT. Medications and Allergies Home Medications Medication Instructions Recorded Confirmed Type Atorvastatin [Lipitor] 40 mg PO HS 05/29/17 01/21/19 History Furosemide [Lasix] 80 mg PO BID@0900,1600 30 Days #60 12/30/18 01/21/19 Rx tab Losartan [Cozaar] 12.5 mg PO DAILY 30 Days #30 tab 12/30/18 01/21/19 Rx Metoprolol Tartrate [Lopressor] 25 mg PO BID 30 Days #60 tab 12/30/18 01/21/19 Rx Acetaminophen [Tylenol] 650 mg PO Q6H PRN 01/21/19 01/21/19 History Magnesium Hydroxide [Milk of 2,400 mg PO Q72H PRN 01/21/19 01/21/19 History Magnesia] Potassium Chloride ER [K-Dur 20] 20 meq PO BID@0800,2000 01/21/19 01/21/19 History Spironolactone 50 mg PO DAILY 01/21/19 01/21/19 History Tolnaftate [Tolnaftate 1%] 1 applic TOPICAL TID PRN 01/21/19 01/21/19 History Allergies Allergy/AdvReac Type Severity Reaction Status Date / Time aspirin AdvReac Unknown STATES SHE Verified 01/21/19 20:24 WAS TOLD NOT TO TAKE. Iodinated Contrast Media AdvReac Unknown STATES SHE Verified 01/21/19 20:24 [Iodinated Contrast- Oral WAS TOLD and IV Dye] TO AVOID NSAIDS (Non-Steroidal AdvReac Unknown STATES SHE Verified 01/21/19 20:24 Anti-Inflamma WAS TOLD TO AVOID Physical Exam Vitals: Vital Signs Temp Pulse Pulse Resp BP BP Pulse Ox 01/22/19 13:00 122 H 21 101/68 99 01/22/19 12:45 110 H 12 107/69 96 01/22/19 12:30 105 H 18 89/62 99 01/22/19 12:15 109 H 16 84/65 96 01/22/19 12:00 107 H 12 94/66 95 01/22/19 11:45 112 H 15 105/72 97 01/22/19 11:30 113 H 22 90/67 97 01/22/19 11:15 111 H 14 96/63 97 01/22/19 11:00 101 H 11 L 95/73 94 L 01/22/19 10:45 109 H 15 102/66 97 01/22/19 10:30 112 H 18 95/61 95 01/22/19 10:15 105 H 13 90/59 94 L 01/22/19 10:00 117 H 14 85/64 95 01/22/19 09:45 106 H 13 85/69 94 L 01/22/19 09:30 100 12 85/65 94 L 01/22/19 09:15 107 H 13 97/73 94 L 01/22/19 09:00 103 H 12 92/63 95 01/22/19 08:45 104 H 11 L 109/95 94 L 01/22/19 08:30 98 12 101/58 95 01/22/19 08:15 104 H 11 L 102/70 94 L 01/22/19 08:00 112 H 14 90/68 95 01/22/19 07:45 97.6 F 105 H 11 L 99/61 97 01/22/19 07:30 105 H 12 87/52 95 01/22/19 07:15 105 H 11 L 84/60 94 L 01/22/19 07:00 101 H 11 L 84/67 95 01/22/19 06:45 105 H 12 79/58 94 L 01/22/19 06:30 125 H 14 66/38 94 L 01/22/19 06:15 129 H 12 62/41 94 L 01/22/19 06:00 128 H 11 L 89/72 95 01/22/19 05:30 12 86/68 96 01/22/19 05:00 113 H 16 90/59 97 01/22/19 04:30 107 H 17 83/62 97 01/22/19 04:00 98 F 121 H 20 85/54 97 01/22/19 03:30 107 H 16 95/60 97 01/22/19 03:00 104 H 17 84/37 96 01/22/19 02:30 112 H 16 88/64 95 01/22/19 02:00 112 H 15 86/67 93 L 01/22/19 01:30 105 H 18 80/61 94 L 01/22/19 01:00 110 H 17 76/57 95 01/22/19 00:30 112 H 16 99/60 94 L 01/22/19 00:00 97.7 F 117 H 20 102/85 93 L 01/21/19 23:55 94 L 01/21/19 23:30 120 H 20 146/79 93 L 01/21/19 23:15 119 H 20 148/70 100 01/21/19 22:58 98.8 F 142 H 22 140/77 95 01/21/19 21:30 100 18 107/63 93 L 01/21/19 19:25 93 L 01/21/19 19:00 108 H 16 141/98 92 L 01/21/19 17:45 97 F L 102 H 18 138/109 95 Intake and Output 01/21/19 01/22/19 01/22/19 22:59 06:59 14:59 Intake Total 1300 2100 2042.432 Output Total 250 205 510 Balance 1050 1895 1532.432 Intake: IV 1300 2100 2000 Lactated Ringers 1,000 ml 750 250 @ 150 mls/hr IV .Q6H40M [facility] Rx#:[id number] Sodium Chloride 0.9% 1, 200 000 ml @ 100 mls/hr IV . Q10H [facility] Rx#:[id number] Sodium Chloride 0.9% 1, 550 000 ml @ 150 mls/hr IV . Q6H40M [facility] Rx#:[id number] Sodium Chloride 0.9% 1, 1000 1200 000 ml @ 999 mls/hr IV . Q1H1M [facility] Rx#:[id number] Intake, IV Titration 42.432 Amount Norepinephrine 4 mg In 42.432 Sodium Chloride 0.9% 250 ml @ 0.05 MCG/KG/MIN 19. 736 mls/hr IV .[id number] [facility] Rx#:[id number] Output: Gastric Drainage 100 Drainage 30 30 Abdomen 30 30 Urine 50 175 380 Estimated Blood Loss 200 Other: Voiding Method Indwelling Catheter Weight 127.006 kg 103.6 kg GENERAL DESCRIPTION: An elderly female lying in bed, no distress. No tachypnea or accessory muscle of respiration use. HEENT: Shows Pallor , no scleral icterus. Oral mucous membrane is dry. No pharyngeal erythema or thrush NECK: Trachea central, no thyromegaly. LUNGS: Unlabored breathing. Clear to auscultation anteriorly. No wheeze or crackle. HEART: S1, S2, regular rate and rhythm. No loud murmur ABDOMEN: Soft, mild distention and mid abdominal tenderness , no guarding or rigidity, no organomegaly EXTREMITIES: No edema of feet. SKIN: No rash, no masses palpable. NEUROLOGICAL: The patient is awake, alert, oriented x3, mood and affect normal. Results CBC & Chem 7: 01/23/19 05:09 01/23/19 05:09 Labs: Abnormal Lab Results - Last 24 Hours (Table) 01/21/19 01/21/19 01/21/19 Range/Units 18:40 18:40 18:40 WBC (3.8-10.6) k/uL RDW 15.9 H (11.5-15.5) % Plt Count 144 L (150-450) k/uL Neutrophils # 8.7 H (1.3-7.7) k/uL Lymphocytes # 0.4 L (1.0-4.8) k/uL Potassium (3.5-5.1) mmol/L BUN 24 H (7-17) mg/dL Creatinine 1.34 H (0.52-1.04) mg/dL Glucose 134 H (74-99) mg/dL POC Glucose (mg/dL) (75-99) mg/dL Plasma Lactic Acid Eduardo 2.7 H* (0.7-2.0) mmol/L Calcium 10.3 H (8.4-10.2) mg/dL Total Bilirubin 2.4 H (0.2-1.3) mg/dL Total Protein (6.3-8.2) g/dL Albumin (3.5-5.0) g/dL Urine Appearance (Clear) Urine Protein (Negative) Urine Blood (Negative) Ur Leukocyte Esterase (Negative) Urine RBC (0-5) /hpf Urine WBC (0-5) /hpf Urine WBC Clumps (None) /hpf Urine Bacteria (None) /hpf 01/21/19 01/22/19 01/22/19 Range/Units 23:49 04:43 04:43 WBC 14.2 H (3.8-10.6) k/uL RDW 15.8 H (11.5-15.5) % Plt Count 119 L (150-450) k/uL Neutrophils # 12.4 H (1.3-7.7) k/uL Lymphocytes # 0.5 L (1.0-4.8) k/uL Potassium 5.2 H (3.5-5.1) mmol/L BUN 27 H (7-17) mg/dL Creatinine 1.25 H (0.52-1.04) mg/dL Glucose 107 H (74-99) mg/dL POC Glucose (mg/dL) 117 H (75-99) mg/dL Plasma Lactic Acid Eduardo (0.7-2.0) mmol/L Calcium (8.4-10.2) mg/dL Total Bilirubin 1.7 H (0.2-1.3) mg/dL Total Protein 6.1 L (6.3-8.2) g/dL Albumin 3.3 L (3.5-5.0) g/dL Urine Appearance (Clear) Urine Protein (Negative) Urine Blood (Negative) Ur Leukocyte Esterase (Negative) Urine RBC (0-5) /hpf Urine WBC (0-5) /hpf Urine WBC Clumps (None) /hpf Urine Bacteria (None) /hpf 01/22/19 Range/Units 11:15 WBC (3.8-10.6) k/uL RDW (11.5-15.5) % Plt Count (150-450) k/uL Neutrophils # (1.3-7.7) k/uL Lymphocytes # (1.0-4.8) k/uL Potassium (3.5-5.1) mmol/L BUN (7-17) mg/dL Creatinine (0.52-1.04) mg/dL Glucose (74-99) mg/dL POC Glucose (mg/dL) (75-99) mg/dL Plasma Lactic Acid Eduardo (0.7-2.0) mmol/L Calcium (8.4-10.2) mg/dL Total Bilirubin (0.2-1.3) mg/dL Total Protein (6.3-8.2) g/dL Albumin (3.5-5.0) g/dL Urine Appearance Turbid H (Clear) Urine Protein 2+ H (Negative) Urine Blood Moderate H (Negative) Ur Leukocyte Esterase Large H (Negative) Urine RBC >182 H (0-5) /hpf Urine WBC >182 H (0-5) /hpf Urine WBC Clumps Many H (None) /hpf Urine Bacteria Few H (None) /hpf Assessment and Plan Assessment: 1-patient admitted hospital with acute abdominal this patient who did have a strangulated ventral hernia patient is status post repair of the same the likely organism we need to cover will be the enteric gram-negative both aerobes and anaerobes (1) Incarcerated hernia Current Visit: Yes Status: Acute Code(s): K46.0 - UNSP ABDOMINAL HERNIA WITH OBSTRUCTION, WITHOUT GANGRENE SNOMED Code(s): 22474682 Plan: 1-the patient will be covered with Zosyn 3.375 g every 8 hours 2-gentle IV fluid We will follow on clinical condition and cultures to further adjust medication if needed Thank you for this consultation will follow this patient with you Time with Patient: Greater than 30
[2019-01-23] MEDS: SODIUM CHLORIDE 0.9% 1,000 ML IV SCH ×3 (07:12→19:53)
[2019-01-23] MEDS: NOREPINEPHRINE 4 MG in SODIUM CHLORIDE 0.9% 250 ML IV SCH ×3 (08:31→16:27)
[2019-01-23] MEDS: PIPERACILLIN-TAZOBACTAM 3.375 GM in SODIUM CHLORIDE 0.9% 100 ML IVPB SCH ×2 (08:32→16:11)
--- NOTE | 2019-01-23 09:26 | P.PN ---
Subjective Progress Note Date: 01/23/19 On 01/23/2019 the patient is postop day #1. The patient is awake and alert. The patient was able to sit up on a chair. She is in a positive fluid balance as the patient was given several boluses of IV fluid and currently she is on a normal saline running at 150 mL an hour. Urine output has dropped since early this morning as the patient was taken off the norepinephrine infusion. Currently she is having urine output of less than 20 mL. Heart rate is in atrial fibrillation and on and off she is tachycardic with a maximum heart rate of 140. Output from the NG is minimal at this point in time. She hasn't been taking her beta blockers. The patient is afebrile. Her renal function is stable at creatinine of 1.23 which is essentially comparable to yesterday. BUN is at 2016 pressors at present within normal limits. White cell count is at 8.3. Hemoglobin is at 10.2. The patient has a JESSIKA drain and output is less than 100 mL an hour. No bowel activity year. No gas. No flatus. No other significant events overnight. She is awake and alert. No altered mentation. Objective - Vital Signs Vital signs: Vital Signs Temp 97.6 F 01/23/19 08:00 Pulse 116 H 01/23/19 09:00 Resp 19 01/23/19 09:00 BP 86/69 01/23/19 09:00 Pulse Ox 94 L 01/23/19 09:00 Intake & Output 01/22/19 01/23/19 01/23/19 18:59 06:59 18:59 Intake Total 3043.350 1876.835 450 Output Total 755 690 55 Balance 2288.350 1186.835 395 Weight 108.6 kg Intake: IV 2950 1800 450 Lactated Ringers 1,000 ml 250 @ 150 mls/hr IV .Q6H40M [facility] Rx#:[id number] Piperacillin-Tazobactam 3 200 .375 gm In Sodium Chloride 0.9% 100 ml @ 200 mls/hr IVPB ONCE STA Rx#:[id number] Sodium Chloride 0.9% 1, 1300 1800 450 000 ml @ 150 mls/hr IV . Q6H40M [facility] Rx#:[id number] Sodium Chloride 0.9% 1, 1200 000 ml @ 999 mls/hr IV . Q1H1M [facility] Rx#:[id number] Intake, IV Titration 93.350 76.835 Amount Norepinephrine 4 mg In 93.350 76.835 Sodium Chloride 0.9% 250 ml @ 0.05 MCG/KG/MIN 19. 736 mls/hr IV .[id number] [facility] Rx#:[id number] Output: Gastric Drainage 100 50 Drainage 70 80 30 Abdomen 70 80 30 Urine 585 560 25 Other: Voiding Method Indwelling Catheter Indwelling Catheter - Exam Morbidly obese, comfortable likely distress. The patient has an NG tube in place. Head exam was generally normal. There was no scleral icterus or corneal arcus. Mucous membranes were moist. Neck was supple and without jugular venous distension, thyromegaly, or carotid bruits. Carotids were easily palpable bilaterally. There was no adenopathy. Mallampati class IV and the patient has significant crowding of posterior oropharynx. Lungs sounds are diminished in lung bases bilaterally otherwise clear. Heart sounds reveal accentuation of second heart sound. It's irregular S1-S2. No significant right ventricular heave or thrill. The patient has a grade 2 systolic ejection murmur in the left lateral sternal border. Abdomen is obese soft nontender. No direct tenderness or rebound tensile guarding at this point in time. Bowel sounds are absent. Surgical wound site over the mid abdominal wall is dry clean and intact. JESSIKA drain is in place. Output is serosanguineous. Examination of the extremities revealed easily palpable radial, femoral and pedal pulses. There was no cyanosis, clubbing there is trace edema in lower extremity bilaterally and poor toenail hygiene Neurologically the patient is awake and alert and is no focal neurological deficit. Examination of the skin revealed no evidence of significant rashes, suspicious appearing nevi or other concerning lesions. The wound over the anterior abdominal wall is dry clean and intact and there is no evidence of any bleeding. - Labs CBC & Chem 7: 01/23/19 05:09 01/23/19 05:09 Labs: Abnormal Lab Results - Last 24 Hours (Table) 01/22/19 01/23/19 01/23/19 Range/Units 11:15 05:09 05:09 RBC 3.38 L (3.80-5.40) m/uL Hgb 10.2 L (11.4-16.0) gm/dL Hct 31.5 L (34.0-46.0) % RDW 16.3 H (11.5-15.5) % Plt Count 115 L (150-450) k/uL Lymphocytes # 0.4 L (1.0-4.8) k/uL Chloride 109 H (98-107) mmol/L BUN 26 H (7-17) mg/dL Creatinine 1.23 H (0.52-1.04) mg/dL Calcium 8.0 L (8.4-10.2) mg/dL Urine Appearance Turbid H (Clear) Urine Protein 2+ H (Negative) Urine Blood Moderate H (Negative) Ur Leukocyte Esterase Large H (Negative) Urine RBC >182 H (0-5) /hpf Urine WBC >182 H (0-5) /hpf Urine WBC Clumps Many H (None) /hpf Urine Bacteria Few H (None) /hpf Microbiology - Last 24 Hours (Table) 01/21/19 23:52 Blood Culture - Preliminary Blood No Growth after 24 hours 01/22/19 11:15 Urine Culture - Preliminary Urine,Clean Catch Assessment and Plan Plan: 1 incarcerated small bowel with strangulation and a large ventral hernia. The patient underwent small bowel resection, expiratory laparotomy, repair of ventral hernia with partial omentectomy and the patient is postop day #2 on today's evaluation, the JESSIKA drain is in place. The NG tube is in place. Output is minimal. Surgical wound site is dry clean and intact. No flatus for bowel moments.. 2 hypotension, he sustained IV fluids and the patient is also on low-dose pressors. The patient's blood pressure improved and she was taken off the pressors earlier this morning at around 3 AM. Currently she is having a low ur ine output. Nevertheless her mean arterial pressure is around 80 and the patient is receiving normal saline at the rate of 150 mL an hour. 3 mild lactic acidosis, improving 4 acute kidney injury secondary to above, none oliguric in nature. Rule out prerenal factors versus ATN creatinine stable at 1.2 5 morbid obesity with a BMI of 46.1 6 Cor pulmonale with severe pulmonary hypertension and right-sided heart failure 7 non-rheumatologic mitral regurgitation moderate in severity and severe t ricuspid regurgitation 8 hyperlipidemia 9 hypertension 10 acid reflux 11 severe osteoarthritis 12 chronic diverticulosis 13 suspect chronic obesity hypoventilation syndrome/obstructive sleep apnea. 14 chronic medical deconditioning Plan Continue IV fluids with normal saline today to 150 mL an hour. A bolus of half a liter of normal saline. Discontinue the pressors. Continued IV Zosyn. Lovenox for DVT prophylaxis. May start metoprolol low-dose metoprolol 12.5 mg by mouth twice a day through the NG. Monitor the heart rate. Mobility. Incentive spirometer. Routine postoperative postsurgical management. We'll continue to follow. Monitor the platelet count. Monitor the cultures were obtained intraoperatively. Continued IV Zosyn. Keep the patient ICU.
[2019-01-23] MEDS ORDERED: SODIUM CHLORIDE 0.9% 500 ML 500 ML IV ONE (09:27)
[2019-01-23] MEDS: ENOXAPARIN 40 MG/0.4 ML SYRINGE SQ SCH (09:38)
[2019-01-23] MEDS: METOPROLOL TARTRATE 12.5 MG TAB PO SCH ×2 (09:39→21:42)
--- NOTE | 2019-01-23 13:41 | P.PN ---
Subjective Progress Note Date: 01/23/19 CHIEF COMPLAINT: Abdominal pain HISTORY OF PRESENT ILLNESS: 68-year-old female who is status post exploratory laparotomy, small bowel resection, repair of strangulated ventral hernia, repair of incarcerated umbilical hernia, and partial omentectomy with Dr. Clement. Postop day #2. Patient examined at the bedside in the intensive care unit with Dr. Clement. Patient is currently sitting up in the chair. She reports her pain is tolerable at this time. NG tube with minimal output over the last 24 hours. She denies passing flatus. WBC 8.3. Hemoglobin 10.2. PHYSICAL EXAM: VITAL SIGNS: Reviewed. GENERAL: Well-developed in no acute distress. HEENT: NG to LIS. No sclera icterus. Extraocular movements grossly intact. Moist buccal mucosa. Head is atraumatic, normocephalic. ABDOMEN: Obese. Soft. Nondistended. Midline incision with shadowing present. JESSIKA drain with sanguinous drainage. Abdominal binder present. NEUROLOGIC: Alert and oriented. Cranial nerves II through XII grossly intact. ASSESSMENT: 1. Strangulated ventral hernia with ischemic small bowel and incarcerated umbilical hernia, s/p exploratory laparotomy, small bowel resection, repair of strangulated ventral hernia, repair of incarcerated umbilical hernia, and partial omentectomy 2. Acute blood loss anemia, secondary to surgery, expected PLAN: 1. Continue ICU management per Dr. Magaña 2. Continue IV fluids 3. Continue montes catheter for strict I&O 4. Discontinue NG tube 5. Begin ice chips and popsicles today 6. Continue use of incentive spirometer. Patient encouraged to use 10 times an hour while awake 7. Increase activity as tolerated. PT/OT on consult 8. Monitor labs. Repeat in AM 9. Consult Dr. Felipe for medical management Nurse practitioner note has been reviewed by physician. Signing provider agrees with the documented findings, assessment, and plan of care. Objective - Vital Signs Vital signs: Vital Signs Temp 98.7 F 01/23/19 12:00 Pulse 112 H 01/23/19 13:15 Resp 16 01/23/19 13:15 BP 107/62 01/23/19 13:15 Pulse Ox 86 L 01/23/19 13:15 Intake & Output 01/22/19 01/23/19 01/23/19 18:59 06:59 18:59 Intake Total 3043.350 3671.168 0265 Output Total 755 690 152 Balance 2288.350 5177.116 4270 Weight 108.6 kg Intake: IV 2950 1800 1650 Lactated Ringers 1,000 ml 250 @ 150 mls/hr IV .Q6H40M [facility] Rx#:[id number] Piperacillin-Tazobactam 3 200 .375 gm In Sodium Chloride 0.9% 100 ml @ 200 mls/hr IVPB ONCE ST[facility] Rx#:[id number] Piperacillin-Tazobactam 3 100 .375 gm In Sodium Chloride 0.9% 100 ml @ 25 mls/hr IVPB Q8HR [facility] Rx# :[id number] Sodium Chloride 0.9% 1, 1300 1800 1050 000 ml @ 150 mls/hr IV . Q6H40M [facility] Rx#:[id number] Sodium Chloride 0.9% 1, 1200 000 ml @ 999 mls/hr IV . Q1H1M [facility] Rx#:[id number] Sodium Chloride 0.9% 500 500 ml 500 ml @ 999 mls/hr IV .Q31M [facility] Rx#:[id number] Intake, IV Titration 93.350 76.835 0 Amount Norepinephrine 4 mg In 93.350 76.835 0 Sodium Chloride 0.9% 250 ml @ 0.05 MCG/KG/MIN 19. 736 mls/hr IV .[id number] [facility] Rx#:[id number] Oral 360 Output: Gastric Drainage 100 50 Drainage 70 80 30 Abdomen 70 80 30 Urine 585 560 122 Other: Voiding Method Indwelling Catheter Indwelling Catheter Indwelling Catheter - Labs CBC & Chem 7: 01/23/19 05:09 01/23/19 05:09 Labs: Abnormal Lab Results - Last 24 Hours (Table) 01/23/19 01/23/19 Range/Units 05:09 05:09 RBC 3.38 L (3.80-5.40) m/uL Hgb 10.2 L (11.4-16.0) gm/dL Hct 31.5 L (34.0-46.0) % RDW 16.3 H (11.5-15.5) % Plt Count 115 L (150-450) k/uL Lymphocytes # 0.4 L (1.0-4.8) k/uL Chloride 109 H (98-107) mmol/L BUN 26 H (7-17) mg/dL Creatinine 1.23 H (0.52-1.04) mg/dL Calcium 8.0 L (8.4-10.2) mg/dL Microbiology - Last 24 Hours (Table) 01/21/19 23:52 Blood Culture - Preliminary Blood No Growth after 24 hours 01/22/19 11:15 Urine Culture - Preliminary Urine,Clean Catch
--- NOTE | 2019-01-23 17:46 | PN ---
PROGRESS NOTE DATE OF SERVICE: 01/23/2019 REASON FOR FOLLOWUP: Secondary peritonitis and abdominal wall infection. INTERVAL HISTORY: The patient is currently afebrile. Patient is breathing comfortably. The patient's pain is currently controlled. Denies having any chest pain, shortness of breath or cough. No nausea, vomiting. PHYSICAL EXAMINATION: Blood pressure 102/58 with a pulse of 103. Temperature 98. She is 96% on 2 L nasal cannula. General description is an elderly female up in the chair in no distress. Respiratory system: Unlabored breathing. Clear to auscultation anteriorly. Heart S1, S2. Regular rate and rhythm. Abdomen soft, no tenderness. LABS: Hemoglobin 10.2, white count 8.3 with a BUN of 26, creatinine 1.23. Urine has been positive. Urine showing gram-negative bacilli. DIAGNOSTIC IMPRESSION AND PLAN: Patient admitted to the hospital with acute abdomen in this patient who did have an incarcerated ventral hernia status post repair. The patient at this time is covered with Zosyn. White count has normalized. That will be continued for now. Monitor clinical course closely. Continue supportive care. MMODL / IJN: [id number] /
[2019-01-23] MEDS ORDERED: DEXTROSE/WATER 1 250ML.BAG with DOPamine DRIP 800 MG IV SCH (18:00)
--- NOTE | 2019-01-23 19:49 | P.CONS ---
History of Present Illness - Reason for Consult Consult date: 01/23/19 Medical management Requesting physician: Oren Clement - Chief Complaint Abdominal pain - History of Present Illness History of presenting complaint: This is a 68-year-old patient who follows Dr. Cooper. Her animal nutrition consultant Dr. SHELL Dawn. Has a rather extensive medical history. Chronic stable medical conditions include GERD, hyperlipidemia, hypertension, Werner arthritis, had a stroke in 2017 left her with a slow speech, diverticulosis. Also has PTSD and depression. Patient also has a history of CHF EF of 65-70%, chronic cor pulmonale, severe secondary pulmonary hypertension and atrial fibrillation. At the [facility] patient started having increasing nausea vomiting abdominal pain that persisted. Patient brought down to the ER. Computed tomography scan of the abdomen showed incarcerated abdominal wall hernia., But small bowel obstruction. Patient underwent small bowel resection, repair of strangulated ventral hernia and incarcerated umbilical hernia and partial omentectomy. Patient has a JESSIKA drain. Initially in the ICU. Today-laying in bed. Remains nothing by mouth with medications. Patient has received at least 4 L of fluid. Not much urine output. Patient's a been on low-dose levo fed. Review of systems: GEN.: Tired EYES: None HEENT: None NECK: None RESPIRATORY: As above CARDIOVASCULAR: None GASTROINTESTINAL: Has a GENITOURINARY: None MUSCULOSKELETAL: Pain in the joints LYMPHATICS: None HEMATOLOGICAL: None PSYCHIATRY: Anxious NEUROLOGICAL: Slow speech from previous stroke Social history: Does not smoke. Alcohol rarely. 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 At the [facility] Physical examination: VITAL SIGNS: 97.6, 105, 21, 102/72, 97% on 3 L GENERAL: BMI 40.4, laying in bed, tired. EYES: Pupils equal. Conjunctiva pale HEENT: External appearance of nose and ears normal, oral cavity grossly normal. NECK: Short and thick, JVD unable to assess; masses not palpable. HEART: Heart sounds muffled; edema present. LUNGS: Respiratory rate increased; distant breath sounds. ABDOMEN: Soft, tender, dressing over the incision wound, liver spleen not palpable, no masses palpable. PSYCH: [Alert and oriented x3; mood and affect normal. NEUROLOGICAL: Cranial nerves grossly intact; no facial asymmetry, power and sensation grossly intact. LYMPHATICS: No lymph nodes palpable in the axilla and neck INVESTIGATIONS, reviewed in the clinical context: White count 8.3 hemoglobin 10.2. Has 115 potassium 4.5 bun 26 creatinine 1.23 UA positive Computed tomography scan abdomen-incarcerated abdominal wall hernia with small bowel at the same. Patient's creatinine was 0.84 on 12/29/2018 Assessment: -Acute incarcerated abdominal ventral wall hernia with small bowel, leading to repair of the same, -Acute kidney injury likely ATN, from hypertension -Chronic congestive heart failure from diastolic dysfunction EF 65-70% -Chronic cor pulmonale -Severe secondary pulmonary hypertension from CHF -Hypertensive heart disease -Moderate mitral regurgitation, severe tricuspid regurgitation, mitral valve prolapse, nontraumatic t -GERD -Hyperlipidemia -Essential hypertension -Primary osteoarthritis -Chronic diverticulosis -Morbid obesity BMI 65.5 -Possibly obesity hypoventilation syndrome Plan: Patient has received at least 4 L of fluid. Poor urine output. Patient getting levo fed for blood pressure support. We'll add dopamine 2.5 mcg/m. Follows I's and O's closely. Patient in the ICU. Other medications to continue. Remains nothing by mouth. Patient is also on IV Zosyn. Thank you Dr. 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 Past Anesthesia/Blood Transfusion Reactions: No Reported Reaction Type of Cardiac Device: Permanent Pacemaker Device Placement Date:: 04/24/2013 placed and gen change in May 2017 Past Psychological History: Anxiety, Depression, PTSD Smoking Status: Never smoker Past Alcohol Use History: Rare Past Drug Use History: None Reported - Past Family History Father Additional Family Medical History / Comment(s): BRAIN ANEURYSM Mother Family Medical History: Coronary Artery Disease (CAD), Dementia Additional Family Medical History / Comment(s): FROM "HEART DISEASE" PER PATIENT. Medications and Allergies Home Medications Medication Instructions Recorded Confirmed Type Atorvastatin [Lipitor] 40 mg PO HS 05/29/17 01/21/19 History Furosemide [Lasix] 80 mg PO BID@0900,1600 30 Days #60 12/30/18 01/21/19 Rx tab Losartan [Cozaar] 12.5 mg PO DAILY 30 Days #30 tab 12/30/18 01/21/19 Rx Metoprolol Tartrate [Lopressor] 25 mg PO BID 30 Days #60 tab 12/30/18 01/21/19 Rx Acetaminophen [Tylenol] 650 mg PO Q6H PRN 01/21/19 01/21/19 History Magnesium Hydroxide [Milk of 2,400 mg PO Q72H PRN 01/21/19 01/21/19 History Magnesia] Potassium Chloride ER [K-Dur 20] 20 meq PO BID@0800,199901/21/19 01/21/19 History Spironolactone 50 mg PO DAILY 01/21/19 01/21/19 History Tolnaftate [Tolnaftate 1%] 1 applic TOPICAL TID PRN 01/21/19 01/21/19 History Allergies Allergy/AdvReac Type Severity Reaction Status Date / Time aspirin AdvReac Unknown STATES SHE Verified 01/21/19 20:24 WAS TOLD NOT TO TAKE. Iodinated Contrast Media AdvReac Unknown STATES SHE Verified 01/21/19 20:24 [Iodinated Contrast- Oral WAS TOLD and IV Dye] TO AVOID NSAIDS (Non-Steroidal AdvReac Unknown STATES SHE Verified 01/21/19 20:24 Anti-Inflamma WAS TOLD TO AVOID Physical Exam Vitals: Vital Signs Temp Pulse Resp BP Pulse Ox 01/23/19 19:00 125 H 16 137/89 93 L 01/23/19 18:45 121 H 17 112/82 91 L 01/23/19 18:30 105 H 16 130/79 94 L 01/23/19 18:15 108 H 20 110/64 93 L 01/23/19 18:00 105 H 17 106/69 95 01/23/19 17:45 110 H 17 115/69 95 01/23/19 17:30 100 16 104/73 97 01/23/19 17:15 96 23 110/68 95 01/23/19 17:00 100 20 104/54 99 01/23/19 16:45 96 16 98/65 96 01/23/19 16:30 117 H 20 95/68 95 01/23/19 16:15 108 H 19 110/71 96 01/23/19 16:00 97.6 F 105 H 21 102/72 97 01/23/19 15:45 97 12 96/74 92 L 01/23/19 15:30 100 16 101/74 97 01/23/19 15:15 105 H 21 104/72 90 L 01/23/19 15:00 106 H 13 100/73 98 01/23/19 14:45 113 H 23 118/76 98 01/23/19 14:30 111 H 22 107/78 100 01/23/19 14:15 112 H 20 103/63 97 01/23/19 14:00 98 16 95/73 95 01/23/19 13:45 106 H 17 102/68 96 01/23/19 13:30 108 H 22 96/61 97 01/23/19 13:15 112 H 16 107/62 86 L 01/23/19 13:00 101 H 25 H 103/59 85 L 01/23/19 12:45 113 H 27 H 105/68 95 01/23/19 12:30 110 H 22 111/68 93 L 01/23/19 12:15 106 H 14 94/70 96 01/23/19 12:00 98.7 F 109 H 20 117/68 97 01/23/19 11:45 107 H 22 102/80 96 01/23/19 11:30 110 H 24 117/79 96 01/23/19 11:15 112 H 25 H 89/72 96 01/23/19 11:00 101 H 13 97/69 95 01/23/19 10:45 106 H 17 99/73 97 01/23/19 10:30 112 H 17 110/71 96 01/23/19 10:15 104 H 12 103/71 99 01/23/19 10:00 110 H 13 106/73 96 01/23/19 09:45 122 H 24 94/69 95 01/23/19 09:30 121 H 14 104/71 97 01/23/19 09:15 129 H 17 97/70 96 01/23/19 09:00 116 H 19 86/69 94 L 01/23/19 08:45 122 H 17 95/74 97 01/23/19 08:30 116 H 21 99/72 96 01/23/19 08:15 117 H 16 98/43 94 L 01/23/19 08:00 97.6 F 125 H 12 90/69 92 L 01/23/19 07:45 128 H 17 86/60 95 01/23/19 07:30 124 H 13 84/54 94 L 01/23/19 07:15 124 H 14 93/55 93 L 01/23/19 07:00 133 H 10 L 80/60 94 L 01/23/19 06:45 131 H 11 L 85/59 94 L 01/23/19 06:30 130 H 16 118/60 92 L 01/23/19 06:15 123 H 19 105/76 92 L 01/23/19 06:00 124 H 21 92/70 95 01/23/19 05:45 114 H 13 89/71 95 01/23/19 05:30 118 H 19 100/71 94 L 01/23/19 05:15 108 H 17 91/60 96 01/23/19 05:00 118 H 16 108/74 95 01/23/19 04:45 117 H 14 84/61 95 01/23/19 04:30 116 H 15 76/60 95 01/23/19 04:15 118 H 16 101/66 94 L 01/23/19 04:00 97.9 F 122 H 22 86/63 95 01/23/19 03:45 112 H 12 87/57 93 L 01/23/19 03:30 113 H 12 98/53 93 L 01/23/19 03:15 122 H 16 105/75 93 L 01/23/19 03:00 123 H 14 99/61 95 01/23/19 02:45 120 H 12 90/61 93 L 01/23/19 02:30 118 H 13 90/62 92 L 01/23/19 02:15 121 H 18 101/66 92 L 01/23/19 02:00 116 H 19 94/66 93 L 01/23/19 01:45 125 H 14 77/58 94 L 01/23/19 01:30 120 H 12 80/54 92 L 01/23/19 01:15 122 H 15 85/55 93 L 01/23/19 01:00 138 H 22 83/65 93 L 01/23/19 00:45 138 H 18 90/59 94 L 01/23/19 00:30 131 H 15 82/57 93 L 01/23/19 00:15 133 H 14 94/61 93 L 01/23/19 00:00 97.9 F 128 H 20 106/64 95 01/22/19 23:45 116 H 17 109/69 95 01/22/19 23:30 121 H 21 105/73 94 L 01/22/19 23:15 125 H 21 93/72 97 01/22/19 23:00 116 H 16 97/71 96 01/22/19 22:45 124 H 16 95/68 95 01/22/19 22:30 114 H 16 101/66 95 01/22/19 22:15 117 H 22 108/72 95 01/22/19 22:00 122 H 22 103/78 97 01/22/19 21:45 122 H 21 102/68 98 01/22/19 21:30 120 H 15 87/63 96 01/22/19 21:15 126 H 16 91/60 96 01/22/19 21:00 123 H 19 108/71 95 01/22/19 20:45 120 H 20 102/76 98 01/22/19 20:30 109 H 15 115/68 95 01/22/19 20:15 116 H 19 105/72 95 01/22/19 20:00 97.8 F 113 H 15 94/69 97 01/22/19 19:45 115 H 17 106/65 94 L Intake and Output 01/23/19 01/23/19 01/23/19 06:59 14:59 22:59 Intake Total 8979.447 8669 1126.241 Output Total 430 227 205 Balance 087.241 9012 921.241 Intake: IV 1200 1800 800 Piperacillin-Tazobactam 3 100 50 .375 gm In Sodium Chloride 0.9% 100 ml @ 25 mls/hr IVPB Q8HR [facility] Rx# :[id number] Sodium Chloride 0.9% 1, 1200 1200 750 000 ml @ 150 mls/hr IV . Q6H40M [facility] Rx#:[id number] Sodium Chloride 0.9% 500 500 ml 500 ml @ 999 mls/hr IV .Q31M ONE Rx#:[id number] Intake, IV Titration 11.709 0 86.241 Amount Norepinephrine 4 mg In 11.709 0 86.241 Sodium Chloride 0.9% 250 ml @ 0.05 MCG/KG/MIN 19. 736 mls/hr IV .[id number] [facility] Rx#:[id number] Oral 360 240 Output: Gastric Drainage 50 15 Drainage 40 60 35 Abdomen 40 60 35 Urine 340 152 170 Other: Voiding Method Indwelling Catheter Indwelling Catheter Indwelling Catheter Weight 108.6 kg Results CBC & Chem 7: 01/23/19 05:09 01/23/19 05:09 Labs: Abnormal Lab Results - Last 24 Hours (Table) 01/23/19 01/23/19 Range/Units 05:09 05:09 RBC 3.38 L (3.80-5.40) m/uL Hgb 10.2 L (11.4-16.0) gm/dL Hct 31.5 L (34.0-46.0) % RDW 16.3 H (11.5-15.5) % Plt Count 115 L (150-450) k/uL Lymphocytes # 0.4 L (1.0-4.8) k/uL Chloride 109 H (98-107) mmol/L BUN 26 H (7-17) mg/dL Creatinine 1.23 H (0.52-1.04) mg/dL Calcium 8.0 L (8.4-10.2) mg/dL Microbiology - Last 24 Hours (Table) 01/22/19 11:15 Urine Culture - Preliminary Urine,Clean Catch Gram Neg Bacilli 01/21/19 23:52 Blood Culture - Preliminary Blood No Growth after 24 hours
[2019-01-23] MEDS: METOCLOPRAMIDE 5 MG/ML 2 ML VIAL IVP PRN (19:55)
[2019-01-24] MEDS: PIPERACILLIN-TAZOBACTAM 3.375 GM in SODIUM CHLORIDE 0.9% 100 ML IVPB SCH ×4 (00:38→23:43)
[2019-01-24] MEDS: SODIUM CHLORIDE 0.9% 1,000 ML IV SCH ×3 (03:37→17:32)
[2019-01-24 05:16] LABS: Anisocytosis Slight; HCT 26.5 % (34.0-46.0); HGB 8.8 gm/dL (11.4-16.0); Hypochromasia Slight; MCH 30.2 pg (25.0-35.0); MCV 91.5 fL (80.0-100.0); Mean Platelet Volume 8.9; RDW 16.4 % (11.5-15.5)
[2019-01-24 05:21] LABS: Calcium 7.7 mg/dL (8.4-10.2); Potassium 3.8 mmol/L (3.5-5.1)
[2019-01-24 05:46] LABS: Eosinophils # (M) 0.14 k/uL (0-0.7); Lymphocytes # (M) 0.63 k/uL (1.0-4.8); Monocytes # (M) 0.63 k/uL (0-1.0); Neutrophils % (M) 80 %; Nucleated Red Blood Cells 0 /100 WBC (0-0); Platelet Count 93 k/uL (150-450); Total Cells Counted 100
[2019-01-24] MEDS ORDERED: Potassium Replacement Protocol 1 EACH MISC MISCELLANE PRN (06:15)
[2019-01-24] MEDS ORDERED: POTASSIUM CHLORIDE ER 20 MEQ TAB.ER PO SCH (07:00)
--- NOTE | 2019-01-24 07:50 | XR ---
EXAMINATION TYPE: XR chest 1V DATE OF EXAM: 01/24/2019 COMPARISON: 01/22/2019 HISTORY: Shortness of breath TECHNIQUE: Single frontal view of the chest is obtained. FINDINGS: Cardiomediastinal silhouette is enlarged. And enteric tube has been removed in the interim . Multilead left-sided cardiac device is seen. Improved aeration of the lung bases. No sizable pneumo thorax or pleural effusion remaining. Trace amount interfissural fluid on the right. Diffuse osseous demineralization. IMPRESSION: Redemonstration of enlarged cardiac mediastinal silhouette. No sizable remaining pleural effusion or pneumothorax. No pulmonary vascular congestion.
[2019-01-24] MEDS: METOPROLOL TARTRATE 12.5 MG TAB PO SCH ×2 (08:26→20:55)
[2019-01-24] MEDS: ENOXAPARIN 40 MG/0.4 ML SYRINGE SQ SCH (08:26)
[2019-01-24] MEDS: HYDROcodone/APAP 5-325MG 1 EACH TAB PO PRN (10:27)
[2019-01-24] MEDS: NOREPINEPHRINE 4 MG in SODIUM CHLORIDE 0.9% 250 ML IV SCH (11:37)
[2019-01-24] MEDS: METOCLOPRAMIDE 5 MG/ML 2 ML VIAL IVP PRN (13:07)
--- NOTE | 2019-01-24 13:51 | P.PN ---
Subjective Progress Note Date: 01/24/19 Principal diagnosis: Incarcerated small bowel with strangulation and a large ventral hernia, status post a small bowel resection, exposure laparotomy and repair of ventral hernia On 01/24/2019 patient seen in follow-up in the intensive care unit, this is postoperative day 3, status post small bowel resection, exploratory laparotomy and repair of ventral hernia with partial omentectomy for incarcerated small bowel, strangulation and large ventral hernia. Denies any acute complaints, vital signs have been stable, she is on 2 L of oxygen with a pulse ox of 94-97%, hemodynamically stable. Urine output has improved, and patient is making about 30-35 ML per hour, she was briefly on dopamine however she became tachycardic and dopamine has been discontinued, she remains in A. fib with a controlled rate. No difficulty breathing. She is working on her incentive spirometer, lung sounds are diminished, with a few bibasilar crackles, no cough or congestion. Bowel sounds are present, hypoactive, patient has not passed any gas yet or has not had any bowel movement. At abdominal incisions clean dry and intact, covered with dressing, and there is abdominal binder in place, no fever or chills. She remains on IV fluids with 0.9 normal saline at a rate of 150 ML per hour, she is tolerating ice chips, no nausea vomiting no diarrhea, today's labs have been reviewed, showing white blood cell count of 7.0, hemoglobin is 8.8, sodium of 142, potassium is 3.8, chloride is 114, CO2 is 21, B1 is 25 and creatinine is 1.09. Urinalysis showed a limited white count and positive leuks, and urine culture was positive for Enterobacter cloacae, antibiotic coverage is with Zosyn which the organism is susceptible to. Otherwise patient is doing well, and she is stable to go out of intensive care unit today. Follow-up chest x-ray has been reviewed, showing no pulmonary vessel congestion or pleural effusion or pneumothorax Objective - Vital Signs Vital signs: Vital Signs Temp 98.6 F 01/24/19 08:15 Pulse 93 01/24/19 12:00 Resp 21 01/24/19 12:00 BP 107/62 01/24/19 12:00 Pulse Ox 88 L 01/24/19 12:00 Intake & Output 01/23/19 01/24/19 01/24/19 18:59 06:59 18:59 Intake Total 3108.478 1831.842 950 Output Total 372 740 710 Balance 2736.478 1091.842 240 Weight 111.9 kg 111.9 kg Intake: IV 2425 1825 900 Piperacillin-Tazobactam 3 125 25 100 .375 gm In Sodium Chloride 0.9% 100 ml @ 25 mls/hr IVPB Q8HR [facility] Rx# :[id number] Sodium Chloride 0.9% 1, 1800 1800 800 000 ml @ 100 mls/hr IV . Q10H [facility] Rx#:[id number] Sodium Chloride 0.9% 500 500 ml 500 ml @ 999 mls/hr IV .Q31M [facility] Rx#:[id number] Intake, IV Titration 83.478 6.842 Amount Norepinephrine 4 mg In 83.478 6.842 Sodium Chloride 0.9% 250 ml @ 0.05 MCG/KG/MIN 19. 736 mls/hr IV .[id number] [facility] Rx#:[id number] Oral 600 50 Output: Gastric Drainage 15 Drainage 95 65 40 Abdomen 95 65 40 Urine 262 675 670 Other: Voiding Method Indwelling Catheter Indwelling Catheter Indwelling Catheter - Exam GENERAL EXAM: Alert, pleasant, 68-year-old obese white female, on 2 L of oxygen, sitting up in the recliner in no acute distress HEAD: Normocephalic/atraumatic. EYES: Normal reaction of pupils, equal size. Conjunctiva pink, sclera white. NOSE: Clear with pink turbinates. THROAT: No erythema or exudates. NECK: No masses, no JVD, no thyroid enlargement, no adenopathy. CHEST: No chest wall deformity. Symmetrical expansion. LUNGS: Equal air entry with no crackles, wheeze, rhonchi or dullness. CVS: Regular rate and rhythm, normal S1 and S2, no gallops, no murmurs, no rubs ABDOMEN: Soft, obese, nontender. Surgical incision is clean dry and intact, covered with the dressing, JESSIKA drain with small amount of serosanguineous output, compress and draining. Abdominal binder is on No hepatosplenomegaly, normal bowel sounds, no guarding or rigidity. EXTREMITIES: No clubbing, 1+ nonpitting edema, no cyanosis, 2+ pulses and upper and lower extremities. MUSCULOSKELETAL: Muscle strength and tone normal. SPINE: No scoliosis or deformity SKIN: No rashes CENTRAL NERVOUS SYSTEM: Alert and oriented -3. No focal deficits, tone is normal in all 4 extremities. PSYCHIATRIC: Alert and oriented -3. Appropriate affect. Intact judgment and insight. - Labs CBC & Chem 7: 01/24/19 04:44 01/24/19 04:44 Labs: Abnormal Lab Results - Last 24 Hours (Table) 01/24/19 01/24/19 Range/Units 04:44 04:44 RBC 2.90 L (3.80-5.40) m/uL Hgb 8.8 L (11.4-16.0) gm/dL Hct 26.5 L (34.0-46.0) % RDW 16.4 H (11.5-15.5) % Plt Count 93 L (150-450) k/uL Lymphocytes # (Manual) 0.63 L (1.0-4.8) k/uL Chloride 114 H (98-107) mmol/L Carbon Dioxide 21 L (22-30) mmol/L BUN 25 H (7-17) mg/dL Creatinine 1.09 H (0.52-1.04) mg/dL Calcium 7.7 L (8.4-10.2) mg/dL Microbiology - Last 24 Hours (Table) 01/22/19 11:15 Urine Culture - Final Urine,Clean Catch Enterobacter cloacae 01/21/19 23:52 Blood Culture - Preliminary Blood No Growth after 48 hours Assessment and Plan Plan: 1 incarcerated small bowel with strangulation and a large ventral hernia. The patient underwent small bowel resection, expiratory laparotomy, repair of ventral hernia with partial omentectomy and the patient is postop day #3 on today's evaluation, the JESSIKA drain is in place. The NG tube is in place. Output is minimal. Surgical wound site is dry clean and intact. No flatus for bowel moments.. 2 hypotension, he sustained IV fluids and the patient is also on low-dose pressors. The patient's blood pressure improved and she was taken off the pressors earlier this morning at around 3 AM. Currently she is having a low urine output. Nevertheless her mean arterial pressure is around 80 and the patient is receiving normal saline at the rate of 150 mL an hour. 3 mild lactic acidosis, improving 4 acute kidney injury secondary to above, none oliguric in nature. Rule out prerenal factors versus ATN creatinine stable at 1.2 5 morbid obesity with a BMI of 46.1 6 Cor pulmonale with severe pulmonary hypertension and right-sided heart failure 7 non-rheumatologic mitral regurgitation moderate in severity and severe tricuspid regurgitation 8 hyperlipidemia 9 hypertension 10 acid reflux 11 severe osteoarthritis 12 chronic diverticulosis 13 suspect chronic obesity hypoventilation syndrome/obstructive sleep apnea. 14 chronic medical deconditioning Plan: Continue encouraging deep breathing and coughing, today's chest x-ray has been reviewed. Patient is maintaining stable O2 saturations on 2 L, continue with IV fluids at a rate of 100 ML per hour, patient is tolerating ice chips, no nausea or vomiting, has not has gas, but bowel sounds are active, incisions clean dry and intact, today's labs have been reviewed, no acute events overnight, patient is tolerating activity, sitting up in the chair, in no acute distress. From pulmonary perspective she stable to go out of intensive care unit today to regular general medical floor with remote telemetry, heart rate is better controlled, remains in A. fib. Urine output has improved. Continue encouraging incentive spirometry use I performed a history & physical examination of the patient and discussed their management with my nurse practitioner, Ct Palomares. I reviewed the nurse practitioner's note and agree with the documented findings and plan of care. L annette sounds are positive for diminished breath sounds. The findings and the impression was discussed with the patient. I attest to the documentation by the nurse practitioner. Time with Patient: Less than 30
--- NOTE | 2019-01-24 16:08 | P.PN ---
Progress Note - Text Progress Note Date: 01/24/19 The patient is resting comfortably in her chair. She states she feels better. She has minimal incisional pain. She has not had any significant flatus. On exam her vital signs are stable. Her abdomen is soft. Incision site is clean dry and intact. Status post small bowel resection and repair of strangulated ventral hernia. Patient will have her diet advanced once she has return of bowel function.
--- NOTE | 2019-01-24 18:02 | PN ---
PROGRESS NOTE DATE OF SERVICE: 01/24/2019 REASON FOR FOLLOWUP: Incarcerated abdominal hernia and possible secondary peritonitis. INTERVAL HISTORY: The patient is currently afebrile. The patient has been breathing comfortably. The patient has been transferred out of the ICU. Currently denies having any chest pain. No cough. No nausea. His abdominal pain is currently controlled. No diarrhea. PHYSICAL EXAMINATION: Blood pressure 107/62 with a pulse of 93, temperature 98.6. She is 94% on 2 L nasal cannula. General description is an elderly female up in the chair in no distress. Respiratory system: Unlabored breathing. Decreased breath sounds in the bases. No wheeze. Heart S1, S2. Regular rate and rhythm. Abdomen soft, no tenderness. LABS: Hemoglobin 8.8, white count 7.0, BUN of 25, creatinine 1.09. DIAGNOSTIC IMPRESSION AND PLAN: Patient with incarcerated abdominal hernia, status post operative repair of the same with concern for possible secondary peritonitis with ischemic bowel status post resection. Patient is currently covered with Zosyn. White count is normal. The patient advised incentive spirometry and monitor clinical course closely. Continue supportive care. MMODL / IJN: [id number] /
--- NOTE | 2019-01-24 18:27 | P.PN ---
Progress Note - Text Progress Note Date: 01/24/19 - Chief Complaint Abdominal pain - History of Present Illness History of presenting complaint: This is a 68-year-old patient who follows Dr. Cooper. Her cost recorder Dr. SHELL Dawn. Has a rather extensive medical history. Chronic stable medical conditions include GERD, hyperlipidemia, hypertension, Wenrer arthritis, had a stroke in 2017 left her with a slow speech, diverticulosis. Also has PTSD and depression. Patient also has a history of CHF EF of 65-70%, chronic cor pulmonale, severe secondary pulmonary hypertension and atrial fibrillation. At the [facility] patient started having increasing nausea vomiting abdominal pain that persisted. Patient brought down to the ER. Computed tomography scan of the abdomen showed incarcerated abdominal wall hernia., But small bowel obstruction. Patient underwent small bowel resection, repair of strangulated ventral hernia and incarcerated umbilical hernia and partial omentectomy. Patient has a JESSIKA drain. Initially in the ICU. Today-patient has been up in a chair. On ice chips and popsicles. No flatus. Pain is controlled. Had some nausea earlier. Review of systems: Was done for constitutional, cardiovascular, GI, pulmonary. relevant finding as above Active Medications Acetaminophen (Tylenol Tab) 650 mg PO Q6HR PRN PRN Reason: Mild Pain or Fever >= 100.5 Last Admin: 01/23/19 11:48 Dose: 650 mg Documented by: Hydrocodone Bitart/Acetaminophen ([place] 5-325) 2 each PO Q6HR PRN PRN Reason: Moderate to Severe Pain Last Admin: 01/24/19 10:27 Dose: 1 each Documented by: Enoxaparin Sodium (Lovenox) 40 mg SQ DAILY COUNTS INCLUDE 234 BEDS AT THE [facility] Last Admin: 01/24/19 08:26 Dose: 40 mg Documented by: Hydromorphone HCl (Dilaudid) 1 mg IVP Q3HR PRN PRN Reason: Moderate to Severe Pain Last Admin: 01/23/19 06:17 Dose: 0.5 mg Documented by: Piperacillin Sod/Tazobactam (Sod 3.375 gm/ Sodium Chloride) 100 mls @ 25 mls/hr IVPB Q8HR DOC Last Admin: 01/24/19 17:26 Dose: 25 mls/hr Documented by: Sodium Chloride (Saline 0.9%) 1,000 mls @ 100 mls/hr IV .Q10H COUNTS INCLUDE 234 BEDS AT THE [facility] Last Admin: 01/24/19 17:32 Dose: Not Given Documented by: Metoclopramide HCl (Reglan) 10 mg IVP Q6H PRN PRN Reason: Nausea And Vomiting Last Admin: 01/24/19 13:07 Dose: 10 mg Documented by: Metoprolol Tartrate (Lopressor) 12.5 mg PO BID COUNTS INCLUDE 234 BEDS AT THE [facility] Last Admin: 01/24/19 08:26 Dose: 12.5 mg Documented by: Miscellaneous Information (Potassium Per Protocol) 1 each MISCELLANE DAILY PRN; Protocol PRN Reason: Per Protocol Naloxone HCl (Narcan) 0.2 mg IV Q2M PRN PRN Reason: Opioid Reversal Physical examination: VITAL SIGNS: Afebrile, 90, 17, 98/66, 97% on 2 L GENERAL: Laying in bed, awake EYES: Pupils equal. Conjunctiva pale HEENT: External appearance of nose and ears normal, oral cavity grossly normal. NECK: Short and thick, JVD unable to assess; masses not palpable. HEART: Heart sounds muffled; edema present. LUNGS: Respiratory rate increased; distant breath sounds. ABDOMEN: Soft, tender, dressing over the incision wound, liver spleen not palpable, no masses palpable. Bowel sounds present PSYCH: [Alert and oriented x3; mood and affect normal. INVESTIGATIONS, reviewed in the clinical context: White count 7 hemoglobin 8.8 calcium 3.8 bun 25 creatinine 1.09 Previous testing White count 8.3 hemoglobin 10.2. Has 115 potassium 4.5 bun 26 creatinine 1.23 UA positive Computed tomography scan abdomen-incarcerated abdominal wall hernia with small bowel at the same. Patient's creatinine was 0.84 on 12/29/2018 Assessment: -Acute incarcerated abdominal ventral wall hernia with small bowel, leading to repair of the same, -Acute kidney injury likely ATN, from hypotension -Acute postop blood loss anemia as expected from surgery -Chronic congestive heart failure from diastolic dysfunction EF 65-70% -Chronic cor pulmonale -Severe secondary pulmonary hypertension from CHF -Hypertensive heart disease -Moderate mitral regurgitation, severe tricuspid regurgitation, mitral valve prolapse, nontraumatic t -GERD -Hyperlipidemia -Essential hypertension -Primary osteoarthritis -Chronic diverticulosis -Morbid obesity BMI 65.5 -Possibly obesity hypoventilation syndrome Plan: Patient moved out of ICU. On ice chips and popsicles. Keep a eye on hemoglobin. Repeat labs in the morning. Care was discussed with the patient. Thank you Dr. Clement
[2019-01-25] MEDS: SODIUM CHLORIDE 0.9% 1,000 ML IV SCH ×2 (05:30→07:48)
[2019-01-25 07:42] LABS: Anisocytosis Slight; Basophils % (A) 0 %; Eosinophils # (A) 0.1 k/uL (0-0.7); Eosinophils % (A) 1 %; HCT 25.3 % (34.0-46.0); HGB 8.2 gm/dL (11.4-16.0); Hypochromasia Slight; Lymphocytes # (A) 0.4 k/uL (1.0-4.8); Lymphocytes % (A) 7 %; MCHC 32.5 g/dL (31.0-37.0); MCV 92.4 fL (80.0-100.0); Mean Platelet Volume 9.5; Monocytes # (A) 0.3 k/uL (0-1.0); Monocytes % (A) 5 %; Neutrophils # (A) 4.9 k/uL (1.3-7.7); Neutrophils % (A) 84 %; RBC 2.74 m/uL (3.80-5.40); RDW 16.5 % (11.5-15.5); WBC 5.8 k/uL (3.8-10.6)
[2019-01-25] MEDS: ENOXAPARIN 40 MG/0.4 ML SYRINGE SQ SCH (07:48)
[2019-01-25] MEDS: METOPROLOL TARTRATE 12.5 MG TAB PO SCH ×2 (07:48→20:34)
[2019-01-25 07:53] LABS: Calcium 7.8 mg/dL (8.4-10.2); Platelet Count 96 k/uL (150-450)
[2019-01-25] MEDS: METOCLOPRAMIDE 5 MG/ML 2 ML VIAL IVP PRN ×3 (07:54→23:40)
[2019-01-25] MEDS: PIPERACILLIN-TAZOBACTAM 3.375 GM in SODIUM CHLORIDE 0.9% 100 ML IVPB SCH ×3 (08:08→23:42)
--- NOTE | 2019-01-25 10:13 | XR ---
EXAMINATION TYPE: XR chest 1V DATE OF EXAM: 01/25/2019 HISTORY: Shortness of breath. COMPARISON: 01/24/2019 TECHNIQUE: Single view of the chest is submitted. FINDINGS: Demonstrated are scattered senescent parenchymal change. There is no evidence for focal infiltrate. The heart is stable. Hilar and mediastinal structures are within normal limits. Degenerative changes are seen of the dorsal spine. IMPRESSION: 1. Chronic changes without evidence for acute pulmonary disease.
--- NOTE | 2019-01-25 12:41 | PN ---
PROGRESS NOTE DATE OF SERVICE: 01/25/2019 REASON FOR FOLLOWUP: Incarcerated bowel and possible secondary peritonitis. INTERVAL HISTORY: The patient is currently afebrile. Patient is breathing comfortably. Denies having any nausea or vomiting. Has been tolerating ice chips. Denies any chest pain. No shortness of breath or cough. PHYSICAL EXAMINATION: Blood pressure is 113/75 with a pulse of 90, temperature 97.8. She is 92% on room air. General description is an elderly female up in the bed in no distress. Respiratory system: Unlabored breathing with decreased breath sounds at the base. No wheeze. Heart S1, S2. Regular rate and rhythm. Abdomen soft, no tenderness. LABS: Hemoglobin 8.1, white count 5.8. BUN of 23, creatinine 1.02. DIAGNOSTIC IMPRESSION AND PLAN: Patient with strangulated internal hernia status post repair with concern for possible secondary peritonitis with ischemic small bowel status post resection. Patient is currently covered with Zosyn, to continue for now. Her white count is normal. She is afebrile. Family at the bedside. Their questions were answered. MMODL / IJN: [id number] /
--- NOTE | 2019-01-25 13:07 | P.PN ---
Subjective Progress Note Date: 01/25/19 On 01/25/2019, the patient is doing well. She is postop day #4. status post small bowel resection, exploratory laparotomy and repair of ventral hernia with partial omentectomy for incarcerated small bowel, strangulation and large ventral hernia. The patient is doing well. NG tube is removed. He is passing flatus. No stool or bowel activity yet. No pain on than some limited pain at the surgical wound site. She remains on IV Zosyn. Her usual urine culture was also positive for Enterobacter and the patient is covered with antibiotics. No fever. No chills. JESSIKA drain is in place. Also taking some ice chips and popsicles. She remains in atrial fibrillation. Rates controlled for now. Objective - Vital Signs Vital signs: Vital Signs Temp 97.8 F 01/25/19 11:14 Pulse 98 01/25/19 11:14 Resp 20 01/25/19 11:14 BP 113/75 01/25/19 11:14 Pulse Ox 92 L 01/25/19 11:14 Intake & Output 01/24/19 01/25/19 01/25/19 18:59 06:59 18:59 Intake Total 950 Output Total 710 1030 20 Balance 240 -1030 -20 Weight 111.9 kg Intake: IV 900 Piperacillin-Tazobactam 3 100 .375 gm In Sodium Chloride 0.9% 100 ml @ 25 mls/hr IVPB Q8HR DOC Rx# :[id number] Sodium Chloride 0.9% 1, 800 000 ml @ 100 mls/hr IV . Q10H DOC Rx#:[id number] Oral 50 Output: Drainage 40 30 20 Abdomen 40 30 20 Urine 670 1000 Other: Voiding Method Indwelling Catheter - Exam Morbidly obese, comfortable likely distress. Head exam was generally normal. There was no scleral icterus or corneal arcus. Mucous membranes were moist. Neck was supple and without jugular venous distension, thyromegaly, or carotid bruits. Carotids were easily palpable bilaterally. There was no adenopathy. M allampati class IV and the patient has significant crowding of posterior oropharynx. Lungs sounds are diminished in lung bases bilaterally otherwise clear. Heart sounds reveal accentuation of second heart sound. It's irregular S1-S2. No significant right ventricular heave or thrill. The patient has a grade 2 systolic ejection murmur in the left lateral sternal border. Abdomen is obese soft nontender. No direct tenderness or rebound tensile guarding at this point in time. Bowel sounds are absent. Surgical wound site over the mid abdominal wall is dry clean and intact. JESSIKA drain is in place. Output is serosanguineous. Examination of the extremities revealed easily palpable radial, femoral and pedal pulses. There was no cyanosis, clubbing there is trace edema in lower extremity bilaterally and poor toenail hygiene Neurologically the patient is awake and alert and is no focal neurological deficit. Examination of the skin revealed no evidence of significant rashes, suspicious appearing nevi or other concerning lesions. The wound over the anterior abdominal wall is dry clean and intact and there is no evidence of any bleeding. - Labs CBC & Chem 7: 01/25/19 07:22 01/25/19 07:22 Labs: Abnormal Lab Results - Last 24 Hours (Table) 01/25/19 01/25/19 Range/Units 07:22 07:22 RBC 2.74 L (3.80-5.40) m/uL Hgb 8.2 L (11.4-16.0) gm/dL Hct 25.3 L (34.0-46.0) % RDW 16.5 H (11.5-15.5) % Plt Count 96 L (150-450) k/uL Lymphocytes # 0.4 L (1.0-4.8) k/uL Sodium 146 H (137-145) mmol/L Chloride 116 H (98-107) mmol/L BUN 23 H (7-17) mg/dL Calcium 7.8 L (8.4-10.2) mg/dL Microbiology - Last 24 Hours (Table) 01/21/19 23:52 Blood Culture - Preliminary Blood No Growth after 72 hours 01/22/19 11:15 Urine Culture - Final Urine,Clean Catch Enterobacter cloacae Assessment and Plan Plan: 1 incarcerated small bowel with strangulation and a large ventral hernia. The patient underwent small bowel resection, expiratory laparotomy, repair of ventral hernia with partial omentectomy and the patient is postop day #4 on today's evaluation, the JESSIKA drain is in place. The NG tube removed and the JESSIKA drain is still in place. 2 Enterobacter UTI 3 mild lactic acidosis, improving 4 acute kidney injury secondary to above, recovered 5 morbid obesity with a BMI of 46.1 6 Cor pulmonale with severe pulmonary hypertension and right-sided heart failure 7 non-rheumatologic mitral regurgitation moderate in severity and severe tricuspid regurgitation 8 hyperlipidemia 9 hypertension 10 acid reflux 11 severe osteoarthritis 12 chronic diverticulosis 13 suspect chronic obesity hypoventilation syndrome/obstructive sleep apnea. 14 chronic medical deconditioning Plan Continue IV fluids with normal saline today to 75 mL an hour. The IV Zosyn. Incentive spirometer. Mobility. Advance diet as tolerated. We'll continue to see on a when necessary basis.
[2019-01-25] MEDS: SODIUM CHLORIDE 0.45% 1,000 ML IV SCH (14:06)
--- NOTE | 2019-01-25 14:09 | P.PN ---
Subjective Progress Note Date: 01/25/19 CHIEF COMPLAINT: Small bowel obstruction HISTORY OF PRESENT ILLNESS: The patient is a 68-year-old female status post resection for incarcerated ventral umbilical hernia. Her pain is controlled. She is clinically stable. No increased abdominal pain. She is tolerating ice chips and popsicles. ROS: No reports of nausea and vomiting. No bowel movements. No fevers or chills. No new chest pain. No productive sputum PHYSICAL EXAM: VITAL SIGNS: Reviewed CONSTITUTIONAL: Well developed and in no acute distress. EYES: Conjuctivae without sclera icterus. Extraocular movements grossly intact. HEAD, EARS, NOSE, THROAT: Moist buccal mucosa. Head is atraumatic, normocephalic. Hears conversational speech. No nasal drainage. RESPIRATORY: Non-labored respirations and equal bilateral excursions. CARDIOVASCULAR: Palpable 2+ radial pulses. ABDOMEN: Morbidly obese. Soft. No peritonitis. JESSIKA serosanguineous. Dressing intact MUSCULOSKELETAL: No gross deformity of the lower extremities noted. No clubbing. No cyanosis. SKIN: Good skin turgor. Well perfused. NEUROLOGIC: Cranial nerves I through XII grossly intact. No focal or lateralizing signs. PSYCH: Appropriate affect. Alert and oriented to person, place and time. : Barton catheter is present. CLINCAL LABS: White blood cell count normal ASSESSMENT: 1. Small bowel obstruction PLAN: 1. Recommend removal of Barton. 2. Ambulation advised. Objective - Vital Signs Vital signs: Vital Signs Temp 97.8 F 01/25/19 11:14 Pulse 98 01/25/19 11:14 Resp 20 01/25/19 11:14 BP 113/75 01/25/19 11:14 Pulse Ox 92 L 01/25/19 11:14 Intake & Output 01/24/19 01/25/19 01/25/19 18:59 06:59 18:59 Intake Total 950 900 Output Total 710 1030 20 Balance 240 -1030 880 Weight 111.9 kg Intake: IV 900 900 Piperacillin-Tazobactam 3 100 100 .375 gm In Sodium Chloride 0.9% 100 ml @ 25 mls/hr IVPB Q8HR DOC Rx# :[id number] Sodium Chloride 0.9% 1, 800 800 000 ml @ 100 mls/hr IV . Q10H DOC Rx#:[id number] Oral 50 Output: Drainage 40 30 20 Abdomen 40 30 20 Urine 670 1000 Other: Voiding Method Indwelling Catheter - Labs CBC & Chem 7: 01/26/19 07:29 01/26/19 07:29 Labs: Abnormal Lab Results - Last 24 Hours (Table) 01/25/19 01/25/19 Range/Units 07:22 07:22 RBC 2.74 L (3.80-5.40) m/uL Hgb 8.2 L (11.4-16.0) gm/dL Hct 25.3 L (34.0-46.0) % RDW 16.5 H (11.5-15.5) % Plt Count 96 L (150-450) k/uL Lymphocytes # 0.4 L (1.0-4.8) k/uL Sodium 146 H (137-145) mmol/L Chloride 116 H (98-107) mmol/L BUN 23 H (7-17) mg/dL Calcium 7.8 L (8.4-10.2) mg/dL Microbiology - Last 24 Hours (Table) 01/21/19 23:52 Blood Culture - Preliminary Blood No Growth after 72 hours 01/22/19 11:15 Urine Culture - Final Urine,Clean Catch Enterobacter cloacae Assessment and Plan (1) Morbid obesity due to excess calories Current Visit: Yes Status: Acute Code(s): E66.01 - MORBID (SEVERE) OBESITY DUE TO EXCESS CALORIES SNOMED Code(s): 144025700 (2) BMI 50.0-59.9, adult Current Visit: Yes Status: Acute Code(s): Z68.43 - BODY MASS INDEX (BMI) 50.0-59.9, ADULT SNOMED Code(s): 466653763 (3) Ischemic necrosis of small bowel Current Visit: Yes Status: Acute Code(s): K55.029 - ACUTE INFARCTION OF SMALL INTESTINE, EXTENT UNSPECIFIED SNOMED Code(s): 440798382 (4) Strangulated ventral hernia Current Visit: Yes Status: Acute Code(s): K43.6 - OTHER AND UNSP VENTRAL HERNIA WITH OBSTRUCTION, W/O GANGRENE SNOMED Code(s): 143006812 (5) Strangulated ventral incisional hernia Current Visit: Yes Status: Acute Code(s): K43.0 - INCISIONAL HERNIA WITH OBSTRUCTION, WITHOUT GANGRENE SNOMED Code(s): 521991652 (6) Incarcerated hernia Current Visit: Yes Status: Acute Code(s): K46.0 - UNSP ABDOMINAL HERNIA WITH OBSTRUCTION, WITHOUT GANGRENE SNOMED Code(s): 49760942 (7) Small bowel obstruction Current Visit: Yes Status: Acute Code(s): K56.609 - UNSP INTESTNL OBST, UNSP TO PARTIAL VERSUS COMPLETE OBST SNOMED Code(s): 665215206 (8) Anasarca Current Visit: No Status: Acute Code(s): R60.1 - GENERALIZED EDEMA SNOMED Code(s): 192402402 (9) Bilateral leg edema Current Visit: No Status: Acute Code(s): R60.0 - LOCALIZED EDEMA SNOMED Code(s): 435962796 (10) Congestive heart failure Current Visit: No Status: Acute Code(s): I50.9 - HEART FAILURE, UNSPECIFIED SNOMED Code(s): 85924791
--- NOTE | 2019-01-25 14:25 | P.PN ---
Subjective 68-year-old patient who follows Dr. Cooper. Her licensed surveyor Dr. SHELL Dawn. Has a rather extensive medical history. Chronic stable medical conditions include GERD, hyperlipidemia, hypertension, Werner arthritis, had a stroke in 2017 left her with a slow speech, diverticulosis. Also has PTSD and depression. Patient also has a history of CHF EF of 65-70%, chronic cor pulmonale, severe secondary pulmonary hypertension and atrial fibrillation. At the ECF patient started having increasing nausea vomiting abdominal pain that persisted. Patient brought down to the ER. Computed tomography scan of the abdomen showed incarcerated abdominal wall hernia., But small bowel obstruction. Patient underwent small bowel resection, repair of strangulated ventral hernia and incarcerated umbilical hernia and partial omentectomy. Patient has a JESSIKA drain. Initially in the ICU. 01/25/2019 Patient was evaluated on the floor today. Patient is clinically doing well patient still has a Barton catheter which need to be removed. Patient has Enterobacter cloaca in the urine which is resistant to Zosyn she is receiving. Infectious disease is following the patient patient may not require antibiotics for this once the Barton catheter is removed. Constitutional: Denied any fatigue denied any fever. Cardio vascular: denied any chest pain, palpitations Gastrointestinal denied any nausea vomiting Pulmonary: Denied any shortness of breath cough Neurologic denied any new focal deficits All inpatient medications were reviewed and appropriate changes in these medications as dictated in the interval history and assessment and plan. Objective - Vital Signs Vital signs: Vital Signs Temp 97.8 F 01/25/19 11:14 Pulse 98 01/25/19 11:14 Resp 20 01/25/19 11:14 BP 113/75 01/25/19 11:14 Pulse Ox 92 L 01/25/19 11:14 Intake & Output 01/24/19 01/25/19 01/25/19 18:59 06:59 18:59 Intake Total 950 900 Output Total 710 1030 20 Balance 240 -1030 880 Weight 111.9 kg Intake: IV 900 900 Piperacillin-Tazobactam 3 100 100 .375 gm In Sodium Chloride 0.9% 100 ml @ 25 mls/hr IVPB Q8HR DOC Rx# :[id number] Sodium Chloride 0.9% 1, 800 800 000 ml @ 100 mls/hr IV . Q10H DOC Rx#:[id number] Oral 50 Output: Drainage 40 30 20 Abdomen 40 30 20 Urine 670 1000 Other: Voiding Method Indwelling Catheter - Exam PHYSICAL EXAMINATION: GENERAL: The patient is alert and oriented x3, not in any acute distress. Obese HEENT: Pupils are round and equally reacting to light. EOMI. No scleral icterus. No conjunctival pallor. Normocephalic, atraumatic. No pharyngeal erythema. No thyromegaly. CARDIOVASCULAR: S1 and S2 present. No murmurs, rubs, or gallops. PULMONARY: Chest is clear to auscultation, no wheezing or crackles. ABDOMEN: Surgical site area is clean and does have good bowel sounds for the catheter in place MUSCULOSKELETAL: No joint swelling or deformity. EXTREMITIES: No cyanosis, clubbing, or pedal edema. NEUROLOGICAL: Gross neurological examination did not reveal any focal deficits. SKIN: No rashes. - Labs CBC & Chem 7: 01/25/19 07:22 01/25/19 07:22 Labs: Abnormal Lab Results - Last 24 Hours (Table) 01/25/19 01/25/19 Range/Units 07:22 07:22 RBC 2.74 L (3.80-5.40) m/uL Hgb 8.2 L (11.4-16.0) gm/dL Hct 25.3 L (34.0-46.0) % RDW 16.5 H (11.5-15.5) % Plt Count 96 L (150-450) k/uL Lymphocytes # 0.4 L (1.0-4.8) k/uL Sodium 146 H (137-145) mmol/L Chloride 116 H (98-107) mmol/L BUN 23 H (7-17) mg/dL Calcium 7.8 L (8.4-10.2) mg/dL Microbiology - Last 24 Hours (Table) 01/21/19 23:52 Blood Culture - Preliminary Blood No Growth after 72 hours 01/22/19 11:15 Urine Culture - Final Urine,Clean Catch Enterobacter cloacae Assessment and Plan Plan: -Acute incarcerated abdominal ventral wall hernia with small bowel, leading to repair of the same, she will Zosyn which will be continued -Possible Barton catheter related urinary tract infection Barton catheter will be removed and patient is on Zosyn although Citrobacter in the urine is resistant to Zosyn may not be additional antibiotics and medics at as per infectious disease -Acute kidney injury likely ATN, from hypotension improved now If and patient oxygen saturations are down because of which I'll obtain a chest x-ray which shows any fluid overload IV fluids will be discontinued -Acute postop blood loss anemia as expected from surgery -Chronic congestive heart failure from diastolic dysfunction EF 65-70% doubt any acute exacerbation -Chronic cor pulmonale -Severe secondary pulmonary hypertension from CHF and multiple valvular disease -Hypertensive heart disease -Moderate mitral regurgitation, severe tricuspid regurgitation, mitral valve prolapse, nontraumatic t -GERD -Hyperlipidemia -Essential hypertension -Primary osteoarthritis -Chronic diverticulosis -Morbid obesity BMI 65.5 -Possibly obesity hypoventilation syndrome
[2019-01-26] MEDS: SODIUM CHLORIDE 0.45% 1,000 ML IV SCH (03:44)
[2019-01-26 07:55] LABS: Anisocytosis Slight; Basophils % (A) 0 %; Eosinophils # (A) 0.1 k/uL (0-0.7); Eosinophils % (A) 1 %; HCT 27.6 % (34.0-46.0); HGB 8.9 gm/dL (11.4-16.0); Hypochromasia Slight; Lymphocytes # (A) 0.5 k/uL (1.0-4.8); Lymphocytes % (A) 9 %; MCH 29.5 pg (25.0-35.0); MCHC 32.1 g/dL (31.0-37.0); MCV 91.9 fL (80.0-100.0); Mean Platelet Volume 10.3; Monocytes # (A) 0.3 k/uL (0-1.0); Monocytes % (A) 5 %; Neutrophils # (A) 4.4 k/uL (1.3-7.7); Neutrophils % (A) 83 %; Platelet Count 112 k/uL (150-450); Poikilocytosis Slight; RDW 16.9 % (11.5-15.5); WBC 5.3 k/uL (3.8-10.6)
[2019-01-26 08:08] LABS: Calcium 8.4 mg/dL (8.4-10.2); Magnesium 1.2 mg/dL (1.6-2.3); Potassium 4.1 mmol/L (3.5-5.1)
--- NOTE | 2019-01-26 08:14 | XR ---
EXAMINATION TYPE: XR chest 1V DATE OF EXAM: 01/26/2019 HISTORY: SOB. REFERENCE: Previous study dated 01/25/2019. FINDINGS: There is a bipolar pacemaker place on the left. There is cardiomegaly. The study is rotated but I could not exclude some right basilar airspace disea se. The left lung appears clear. Pleural spaces are clear. IMPRESSION: 1. CARDIOMEGALY. 2. I COULD NOT EXCLUDE SOME RIGHT BASILAR AIRSPACE DISEASE.
[2019-01-26] MEDS: METOPROLOL TARTRATE 12.5 MG TAB PO SCH ×2 (08:34→19:59)
[2019-01-26] MEDS: METOCLOPRAMIDE 5 MG/ML 2 ML VIAL IVP PRN ×2 (08:35→13:47)
[2019-01-26] MEDS: ENOXAPARIN 40 MG/0.4 ML SYRINGE SQ SCH (08:38)
[2019-01-26] MEDS: HYDROcodone/APAP 5-325MG 1 EACH TAB PO PRN (08:38)
[2019-01-26] MEDS: PIPERACILLIN-TAZOBACTAM 3.375 GM in SODIUM CHLORIDE 0.9% 100 ML IVPB SCH ×3 (08:38→23:38)
--- NOTE | 2019-01-26 13:39 | P.PN ---
Subjective 68-year-old patient who follows Dr. Cooper. 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 Has a rather extensive medical history. Chronic stable medical conditions include GERD, hyperlipidemia, hypertension, Werner arthritis, had a stroke in 2017 left her with a slow speech, diverticulosis. Also has PTSD and depression. Patient also has a history of CHF EF of 65-70%, chronic cor pulmonale, severe secondary pulmonary hypertension and atrial fibrillation. At the [facility] patient started having increasing nausea vomiting abdominal pain that persisted. Patient brought down to the ER. Computed tomography scan of the abdomen showed incarcerated abdominal wall hernia., But small bowel obstruction. Patient underwent small bowel resection, repair of strangulated ventral hernia and incarcerated umbilical hernia and partial omentectomy. Patient has a JESSIKA drain. Initially in the ICU. 01/25/2019 Patient was evaluated on the floor today. Patient is clinically doing well patient still has a Barton catheter which need to be removed. Patient has Enterobacter cloaca in the urine which is resistant to Zosyn she is receiving. Infectious disease is following the patient patient may not require antibiotics for this once the Barton catheter is removed. 01/26/2019 Patient is complaining of some nausea may be related to medications Constitutional: Denied any fatigue denied any fever. Cardio vascular: denied any chest pain, palpitations Gastrointestinal denied any vomiting Pulmonary: Denied any shortness of breath cough Neurologic denied any new focal deficits All inpatient medications were reviewed and appropriate changes in these medications as dictated in the interval history and assessment and plan. Objective - Vital Signs Vital signs: Vital Signs Temp 97.6 F 01/26/19 11:04 Pulse 106 H 01/26/19 11:04 Resp 18 01/26/19 11:04 BP 116/72 01/26/19 11:04 Pulse Ox 93 L 01/26/19 11:04 Intake & Output 01/25/19 01/26/19 01/26/19 18:59 06:59 18:59 Intake Total 900 1620 600 Output Total 60 40 Balance 840 1580 600 Intake: IV 900 Piperacillin-Tazobactam 3 100 .375 gm In Sodium Chloride 0.9% 100 ml @ 25 mls/hr IVPB Q8HR DOC Rx# :[id number] Sodium Chloride 0.9% 1, 800 000 ml @ 100 mls/hr IV . Q10H DOC Rx#:[id number] Intake, IV Titration 900 600 Amount Piperacillin-Tazobactam 3 100 .375 gm In Sodium Chloride 0.9% 100 ml @ 25 mls/hr IVPB Q8HR [facility] Rx# :[id number] Sodium Chloride 0.45% 1, 800 600 000 ml @ 75 mls/hr IV . [id number] [facility] Rx#:[id number] Oral 720 Output: Drainage 60 40 Abdomen 60 40 Other: Voiding Method Diaper Incontinent # Voids 2 - Exam PHYSICAL EXAMINATION: GENERAL: The patient is alert and oriented x3, not in any acute distress. Obese HEENT: Pupils are round and equally reacting to light. EOMI. No scleral icterus. No conjunctival pallor. Normocephalic, atraumatic. No pharyngeal erythema. No thyromegaly. CARDIOVASCULAR: S1 and S2 present. No murmurs, rubs, or gallops. PULMONARY: Chest is clear to auscultation, no wheezing or crackles. ABDOMEN: Surgical site area is clean and does have good bowel sounds for the catheter in place MUSCULOSKELETAL: No joint swelling or deformity. EXTREMITIES: No cyanosis, clubbing, or pedal edema. NEUROLOGICAL: Gross neurological examination did not reveal any focal deficits. SKIN: No rashes. - Labs CBC & Chem 7: 01/26/19 07:29 01/26/19 07:29 Labs: Abnormal Lab Results - Last 24 Hours (Table) 01/26/19 01/26/19 Range/Units 07:29 07:29 RBC 3.00 L (3.80-5.40) m/uL Hgb 8.9 L (11.4-16.0) gm/dL Hct 27.6 L (34.0-46.0) % RDW 16.9 H (11.5-15.5) % Plt Count 112 L (150-450) k/uL Lymphocytes # 0.5 L (1.0-4.8) k/uL Chloride 114 H (98-107) mmol/L Carbon Dioxide 20 L (22-30) mmol/L BUN 23 H (7-17) mg/dL Creatinine 1.07 H (0.52-1.04) mg/dL Magnesium 1.2 L (1.6-2.3) mg/dL Microbiology - Last 24 Hours (Table) 01/21/19 23:52 Blood Culture - Preliminary Blood No Growth after 96 hours Assessment and Plan Plan: -Acute incarcerated abdominal ventral wall hernia with small bowel, leading to repair of the same, she will Zosyn which will be continued -Possible Barton catheter related urinary tract infection Barton catheter will be removed and patient is on Zosyn although Citrobacter in the urine is resistant to Zosyn may not be additional antibiotics and medics at as per infectious disease -Acute kidney injury likely ATN, from hypotension improved now If and patient oxygen saturations are down because of which I'll obtain a chest x-ray which shows any fluid overload IV fluids will be discontinued -Acute postop blood loss anemia as expected from surgery -Chronic congestive heart failure from diastolic dysfunction EF 65-70% doubt any acute exacerbation -Chronic cor pulmonale -Severe secondary pulmonary hypertension from CHF and multiple valvular disease -Hypertensive heart disease -Moderate mitral regurgitation, severe tricuspid regurgitation, mitral valve prolapse, nontraumatic t -GERD -Hyperlipidemia -Essential hypertension -Primary osteoarthritis -Chronic diverticulosis -Morbid obesity BMI 65.5 -Possibly obesity hypoventilation syndrome
--- NOTE | 2019-01-26 15:42 | P.PN ---
Subjective Progress Note Date: 01/26/19 CHIEF COMPLAINT: Small bowel obstruction HISTORY OF PRESENT ILLNESS: The patient is a 68-year-old female status post resection for incarcerated ventral umbilical hernia. She has nausea today compared to yesterday. Barton was discontinued from yesterday. She is tolerating ice and some popsicles. ROS: No fevers or chills. No new chest pain. No productive sputum PHYSICAL EXAM: VITAL SIGNS: Reviewed CONSTITUTIONAL: Well developed and in no acute distress. EYES: Conjuctivae without sclera icterus. Extraocular movements grossly intact. HEAD, EARS, NOSE, THROAT: Moist buccal mucosa. Head is atraumatic, normocephalic. Hears conversational speech. No nasal drainage. RESPIRATORY: Non-labored respirations and equal bilateral excursions. CARDIOVASCULAR: Palpable 2+ radial pulses. Tachycardic. ABDOMEN: Obese, no peritonitis. JESSIKA sanguineous MUSCULOSKELETAL: No gross deformity of the lower extremities noted. No clubbing. No cyanosis. SKIN: Good skin turgor. Well perfused. NEUROLOGIC: Cranial nerves I through XII grossly intact. No focal or lateralizing signs. PSYCH: Appropriate affect. Alert and oriented to person, place and time. : Barton catheter is present. CLINCAL LABS: White blood cell count normal ASSESSMENT: 1. Small bowel obstruction PLAN: 1. Continue ice chips and popsicles only. 2. Antiemetics advised. Objective - Vital Signs Vital signs: Vital Signs Temp 97.6 F 01/26/19 11:04 Pulse 106 H 01/26/19 11:04 Resp 18 01/26/19 11:04 BP 116/72 01/26/19 11:04 Pulse Ox 93 L 01/26/19 11:04 Intake & Output 01/25/19 01/26/19 01/26/19 18:59 06:59 18:59 Intake Total 900 1620 600 Output Total 60 40 Balance 840 1580 600 Intake: IV 900 Piperacillin-Tazobactam 3 100 .375 gm In Sodium Chloride 0.9% 100 ml @ 25 mls/hr IVPB Q8HR DOC Rx# :[id number] Sodium Chloride 0.9% 1, 800 000 ml @ 100 mls/hr IV . Q10H [facility] Rx#:[id number] Intake, IV Titration 900 600 Amount Piperacillin-Tazobactam 3 100 .375 gm In Sodium Chloride 0.9% 100 ml @ 25 mls/hr IVPB Q8HR [facility] Rx# :[id number] Sodium Chloride 0.45% 1, 800 600 000 ml @ 75 mls/hr IV . [id number] [facility] Rx#:[id number] Oral 720 Output: Drainage 60 40 Abdomen 60 40 Other: Voiding Method Diaper Incontinent # Voids 2 - Labs CBC & Chem 7: 01/26/19 07:29 01/26/19 07:29 Labs: Abnormal Lab Results - Last 24 Hours (Table) 01/26/19 01/26/19 Range/Units 07:29 07:29 RBC 3.00 L (3.80-5.40) m/uL Hgb 8.9 L (11.4-16.0) gm/dL Hct 27.6 L (34.0-46.0) % RDW 16.9 H (11.5-15.5) % Plt Count 112 L (150-450) k/uL Lymphocytes # 0.5 L (1.0-4.8) k/uL Chloride 114 H (98-107) mmol/L Carbon Dioxide 20 L (22-30) mmol/L BUN 23 H (7-17) mg/dL Creatinine 1.07 H (0.52-1.04) mg/dL Magnesium 1.2 L (1.6-2.3) mg/dL Microbiology - Last 24 Hours (Table) 01/21/19 23:52 Blood Culture - Preliminary Blood No Growth after 96 hours Assessment and Plan (1) BMI 50.0-59.9, adult Current Visit: Yes Status: Acute Code(s): Z68.43 - BODY MASS INDEX (BMI) 50.0-59.9, ADULT SNOMED Code(s): 863873356 (2) Incarcerated hernia Current Visit: Yes Status: Acute Code(s): K46.0 - UNSP ABDOMINAL HERNIA WITH OBSTRUCTION, WITHOUT GANGRENE SNOMED Code(s): 04238045 (3) Ischemic necrosis of small bowel Current Visit: Yes Status: Acute Code(s): K55.029 - ACUTE INFARCTION OF SMALL INTESTINE, EXTENT UNSPECIFIED SNOMED Code(s): 087276176 (4) Morbid obesity due to excess calories Current Visit: Yes Status: Acute Code(s): E66.01 - MORBID (SEVERE) OBESITY DUE TO EXCESS CALORIES SNOMED Code(s): 642901505 (5) Small bowel obstruction Current Visit: Yes Status: Acute Code(s): K56.609 - UNSP INTESTNL OBST, UNSP TO PARTIAL VERSUS COMPLETE OBST SNOMED Code(s): 895420087 (6) Strangulated ventral hernia Current Visit: Yes Status: Acute Code(s): K43.6 - OTHER AND UNSP VENTRAL HERNIA WITH OBSTRUCTION, W/O GANGRENE SNOMED Code(s): 748669674 (7) Strangulated ventral incisional hernia Current Visit: Yes Status: Acute Code(s): K43.0 - INCISIONAL HERNIA WITH OBSTRUCTION, WITHOUT GANGRENE SNOMED Code(s): 239665807
--- NOTE | 2019-01-26 17:32 | PN ---
PROGRESS NOTE DATE OF SERVICE: 01/26/2019 REASON FOR FOLLOWUP: 1. Incarcerated internal hernia with possible secondary peritonitis. 2. Positive urine culture, likely colonization/contamination. INTERVAL HISTORY: The patient is currently afebrile. Patient has been breathing comfortably. The patient denies having any chest pain. No shortness of breath. No cough. No nausea, vomiting. Abdominal pain is currently controlled. No nausea. Denies having any diarrhea. Barton catheter has been discontinued. Denies any urinary symptoms. PHYSICAL EXAMINATION: Blood pressure 116/72 with a pulse of 106, temperature 97.6. She is 93% on 2 L nasal cannula. General description is an elderly female up in the chair in no distress. Respiratory system: Unlabored breathing. Clear to auscultation anteriorly. Heart S1, S2. Regular rate and rhythm. Abdomen soft. No tenderness. Extremities: No edema of the feet. LABS: Hemoglobin 8.8, white count 5.3 with a BUN of 23, creatinine 1.07. DIAGNOSTIC IMPRESSION AND PLAN: 1. Patient with internal hernia with small bowel ischemia status post resection and repair of the internal hernia. The patient seems to have shown overall clinical improvement on Zosyn to continue to finish therapy with oral antibiotics on discharge. 2. Positive urine cultures, low Enterobacter likely contamination/colonizer. Clinically doubt symptomatic urinary tract infection. MMODL / IJN: [id number] /
[2019-01-27 07:48] LABS: Anisocytosis Slight; HCT 28.3 % (34.0-46.0); Hypochromasia Slight; MCH 29.5 pg (25.0-35.0); MCHC 31.7 g/dL (31.0-37.0); MCV 92.8 fL (80.0-100.0); Mean Platelet Volume 9.6; Platelet Count 110 k/uL (150-450); Poikilocytosis Slight; RBC 3.05 m/uL (3.80-5.40); RDW 16.8 % (11.5-15.5); WBC 5.8 k/uL (3.8-10.6)
[2019-01-27 07:58] LABS: Calcium 8.6 mg/dL (8.4-10.2); Potassium 4.1 mmol/L (3.5-5.1)
[2019-01-27] MEDS: PIPERACILLIN-TAZOBACTAM 3.375 GM in SODIUM CHLORIDE 0.9% 100 ML IVPB SCH ×3 (08:04→23:57)
[2019-01-27] MEDS: ENOXAPARIN 40 MG/0.4 ML SYRINGE SQ SCH (08:04)
[2019-01-27] MEDS: METOPROLOL TARTRATE 12.5 MG TAB PO SCH ×2 (08:04→20:36)
[2019-01-27] MEDS: METOCLOPRAMIDE 5 MG/ML 2 ML VIAL IVP PRN (08:04)
--- NOTE | 2019-01-27 10:35 | P.PN ---
Subjective Progress Note Date: 01/27/19 CHIEF COMPLAINT: Abdominal pain HISTORY OF PRESENT ILLNESS: 68-year-old female who is status post exploratory laparotomy, small bowel resection, repair of strangulated ventral hernia, repair of incarcerated umbilical hernia, and partial omentectomy with Dr. Clement performed on 01/21/2019. Patient reports 3-4 episodes of bilious emesis yesterday. She denies emesis this morning but states she felt very nauseous and was close to vomiting but received antiemetics which helped her nausea. She has been able to tolerate some ice chips and half a popsicle. Patient reports she is passing flatus. She denies bowel movement. She reports she is out of bed yesterday for a majority of the day. She does feel very weak and rundown. PHYSICAL EXAM: VITAL SIGNS: Reviewed. GENERAL: Well-developed in no acute distress. HEENT: No sclera icterus. Extraocular movements grossly intact. Moist buccal mucosa. Head is atraumatic, normocephalic. ABDOMEN: Obese. Soft. Nondistended. Midline incision with shadowing present. JESSIKA drain with sanguinous drainage. Abdominal binder present. NEUROLOGIC: Alert and oriented. Cranial nerves II through XII grossly intact. ASSESSMENT: 1. Strangulated ventral hernia with ischemic small bowel and incarcerated umbilical hernia, s/p exploratory laparotomy, small bowel resection, repair of strangulated ventral hernia, repair of incarcerated umbilical hernia, and partial omentectomy 2. Acute blood loss anemia, secondary to surgery, expected PLAN: 1. Continue ice chips and popsicles only. May have a few sips of juice per patient request 2. Begin Reglan 10mg IV Q6 hours 3. Continue antiemetics 4. Begin PPN as patient has been almost a week without significant nutrition 5. Obtain midline catheter 6. Replace magnesium IV 7. Will advance diet when patients nausea improves 8. Continue use of incentive spirometer. Patient encouraged to use 10 times an hour while awake 9. Increase activity as tolerated. PT/OT on consult Nurse practitioner note has been reviewed by physician. Signing provider agrees with the documented findings, assessment, and plan of care. Objective - Vital Signs Vital signs: Vital Signs Temp 98.3 F 01/27/19 05:00 Pulse 103 H 01/27/19 05:00 Resp 16 01/27/19 05:00 BP 116/78 01/27/19 05:00 Pulse Ox 96 01/27/19 05:00 Intake & Output 01/26/19 01/27/19 01/27/19 18:59 06:59 18:59 Intake Total 600 100 Output Total 40 30 Balance 600 60 -30 Intake: IV 100 Piperacillin-Tazobactam 3 100 .375 gm In Sodium Chloride 0.9% 100 ml @ 25 mls/hr IVPB Q8HR DOC Rx# :[id number] Intake, IV Titration 600 Amount Sodium Chloride 0.45% 1, 600 000 ml @ 75 mls/hr IV . [id number] DOC Rx#:[id number] Output: Drainage 40 30 Abdomen 40 30 Other: Voiding Method Diaper Diaper Incontinent Incontinent # Voids 1 - Labs CBC & Chem 7: 01/27/19 06:36 01/27/19 06:36 Labs: Abnormal Lab Results - Last 24 Hours (Table) 01/27/19 01/27/19 01/27/19 Range/Units 06:36 06:36 06:36 RBC 3.05 L (3.80-5.40) m/uL Hgb 9.0 L (11.4-16.0) gm/dL Hct 28.3 L (34.0-46.0) % RDW 16.8 H (11.5-15.5) % Plt Count 110 L (150-450) k/uL Chloride 113 H (98-107) mmol/L Carbon Dioxide 19 L (22-30) mmol/L BUN 24 H (7-17) mg/dL Creatinine 1.08 H (0.52-1.04) mg/dL Magnesium 1.3 L (1.6-2.3) mg/dL Microbiology - Last 24 Hours (Table) 01/21/19 23:52 Blood Culture - Preliminary Blood No Growth after 120 hours
[2019-01-27 10:55] LABS: Phosphorus 3.4 mg/dL (2.5-4.5)
[2019-01-27] MEDS ORDERED: MVI, ADULT NO.4 WITH VIT K 10 ML, TRACE (CONC-1ML/DOSE) 1 ML in AMINO ACID 4.25%-D10W+L... IV SCH ×3 (11:30)
[2019-01-27] MEDS ORDERED: FAT EMULSION 20% 250 ML IV SCH (11:30)
[2019-01-27] MEDS ORDERED: BARIUM SULFATE 450 ML ORAL.SUSP BOTTLE PO PRN (11:33)
[2019-01-27] MEDS: MAGNESIUM SULFATE-D5W PMX 1 GM in DEXTROSE/WATER 1 100ML.BAG IVPB SCH ×3 (13:23→19:20)
[2019-01-27] MEDS: METOCLOPRAMIDE 5 MG/ML 2 ML VIAL IVP SCH ×3 (13:23→23:57)
--- NOTE | 2019-01-27 14:32 | P.PN ---
Subjective Progress Note Date: 01/27/19 Principal diagnosis: 68-year-old patient who follows Dr. Cooper. 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 Has a rather extensive medical history. Chronic stable medical conditions include GERD, hyperlipidemia, hypertension, Werner arthritis, had a stroke in 2017 left her with a slow speech, diverticulosis. Also has PTSD and depression. Patient also has a history of CHF EF of 65-70%, chronic cor pulmonale, severe secondary pulmonary hypertension and atrial fibrillation. At the [facility] patient started having increasing nausea vomiting abdominal pain that persisted. Patient brought down to the ER. Computed tomography scan of the abdomen showed incarcerated abdominal wall hernia., But small bowel obstruction. Patient underwent small bowel resection, repair of strangulated ventral hernia and incarcerated umbilical hernia and partial omentectomy. Patient has a JESSIKA drain. Initially in the ICU. 01/25/2019 Patient was evaluated on the floor today. Patient is clinically doing well patient still has a Barton catheter which need to be removed. Patient has Enterobacter cloaca in the urine which is resistant to Zosyn she is receiving. Infectious disease is following the patient patient may not require antibiotics for this once the Barton catheter is removed. 01/26/2019 Patient is complaining of some nausea may be related to medications Constitutional: Denied any fatigue denied any fever. Cardio vascular: denied any chest pain, palpitations Gastrointestinal denied any vomiting Pulmonary: Denied any shortness of breath cough Neurologic denied any new focal deficits All inpatient medications were reviewed and appropriate changes in these medications as dictated in the interval history and assessment and plan. 01/27/2019 Patient is sitting up in bed in no acute distress. No acute overnight issues. Patient states that she is fatigued and having generalized weakness and states that she has been up multiple times with physical therapy and was up for long periods of time in the chair yesterday and would like to get some rest. Patient states that she did not sleep very well last night. Currently patient denies any chest pain, palpitations, or shortness of breath. Patient has been afebrile. Patient continues to have some intermittent nausea but is tolerating ice chips. Surgery is following closely. Patient is being started on PPN for poor oral intake and will be monitored closely. Surgical dressing is dry and intact and JESSIKA drain noted to have sanguinous drainage. Abdominal binder noted on exam and expressed the importance with the patient wearing the abdominal binder around the surgical site to help with discomfort as it was noted to be rolled up underneath the breasts. Patient states that is seen as she moves positions the abdominal binder moves up and rolls up around her breasts. Discussed with the patient at length about continuing to use her incentive spirometer and patient states that she has been. PT/OT following. When discussed with the patient about possible discharge plans patient states that she will be returning to [facility]. Case management and social work are following. Objective - Vital Signs Vital signs: Vital Signs Temp 97.8 F 01/27/19 12:03 Pulse 92 01/27/19 12:03 Resp 17 01/27/19 12:03 BP 105/69 01/27/19 12:03 Pulse Ox 95 01/27/19 12:03 Intake & Output 01/26/19 01/27/19 01/27/19 18:59 06:59 18:59 Intake Total 600 100 Output Total 40 30 Balance 600 60 -30 Weight 111.9 kg Intake: IV 100 Piperacillin-Tazobactam 3 100 .375 gm In Sodium Chloride 0.9% 100 ml @ 25 mls/hr IVPB Q8HR [facility] Rx# :[id number] Intake, IV Titration 600 Amount Sodium Chloride 0.45% 1, 600 000 ml @ 75 mls/hr IV . [id number] [facility] Rx#:[id number] Output: Drainage 40 30 Abdomen 40 30 Other: Voiding Method Diaper Diaper Incontinent Incontinent # Voids 1 - Exam GENERAL: The patient is alert and oriented x3, not in any acute distress. Obese HEENT: Pupils are round and equally reacting to light. EOMI. No scleral icterus. No conjunctival pallor. Normocephalic, atraumatic. No pharyngeal erythema. No thyromegaly. CARDIOVASCULAR: S1 and S2 present. No murmurs, rubs, or gallops. PULMONARY: Chest is clear to auscultation, no wheezing or crackles. ABDOMEN: Surgical site area is clean, dressing is dry and intact, and does have good bowel sounds, Barton catheter in place MUSCULOSKELETAL: No joint swelling or deformity. EXTREMITIES: No cyanosis, clubbing, or pedal edema. SCDs noted bilaterally NEUROLOGICAL: Gross neurological examination did not reveal any focal deficits. SKIN: No rashes. - Labs CBC & Chem 7: 01/27/19 06:36 01/27/19 06:36 Labs: Abnormal Lab Results - Last 24 Hours (Table) 01/27/19 01/27/19 01/27/19 Range/Units 06:36 06:36 06:36 RBC 3.05 L (3.80-5.40) m/uL Hgb 9.0 L (11.4-16.0) gm/dL Hct 28.3 L (34.0-46.0) % RDW 16.8 H (11.5-15.5) % Plt Count 110 L (150-450) k/uL Chloride 113 H (98-107) mmol/L Carbon Dioxide 19 L (22-30) mmol/L BUN 24 H (7-17) mg/dL Creatinine 1.08 H (0.52-1.04) mg/dL Magnesium 1.3 L (1.6-2.3) mg/dL Microbiology - Last 24 Hours (Table) 01/21/19 23:52 Blood Culture - Preliminary Blood No Growth after 120 hours Assessment and Plan Assessment: -Acute incarcerated abdominal ventral wall hernia with small bowel, leading to repair of the same, she is currently on Zosyn which will be continued -Possible Barton catheter related urinary tract infection. Barton catheter will be removed and patient is on Zosyn although Citrobacter in the urine is resistant to Zosyn may not be additional antibiotics and medics at as per infectious disease -Acute kidney injury likely ATN, from hypotension improved now -Hypomagnesemia, currently being replaced -Acute postop blood loss anemia as expected from surgery; current hemoglobin is 9.0 -Chronic congestive heart failure from diastolic dysfunction EF 65-70% doubt any acute exacerbation -Chronic cor pulmonale -Severe secondary pulmonary hypertension from CHF and multiple valvular disease -Hypertensive heart disease -Moderate mitral regurgitation, severe tricuspid regurgitation, mitral valve prolapse, non-traumatic -GERD -Hyperlipidemia -Essential hypertension -Primary osteoarthritis -Chronic diverticulosis -Morbid obesity BMI 65.5 -Possibly obesity hypoventilation syndrome
--- NOTE | 2019-01-27 15:17 | PN ---
PROGRESS NOTE DATE OF SERVICE: 01/27/2019 REASON FOR FOLLOWUP: A strangulated internal hernia with possible secondary peritonitis. INTERVAL HISTORY: The patient is currently afebrile. Patient complains of feeling slightly nauseated today but did not have any vomiting except one episode yesterday. Denies having any chest pain, shortness of breath or cough, no worsening abdominal pain. Did not have any bowel movement, though has positive gas. PHYSICAL EXAMINATION: Blood pressure is 105/69 with a pulse of 92, temperature 97.8, she is 95% on room air. General description is an elderly female, lying in bed in no distress. RESPIRATORY SYSTEM: Unlabored breathing, decreased breath sounds at the base, no wheeze. HEART: S1, S2. Regular rate and rhythm. ABDOMEN: Soft, no tenderness. LABS: Hemoglobin with white count 5.8, BUN of 24, creatinine 1.08. DIAGNOSTIC IMPRESSION AND PLAN: Patient with an strangulated internal hernia, status post laparotomy and repair of the same with resection of the ischemic small bowel with concern for possible secondary peritonitis. Patient is currently covered with Zosyn to continue. Will monitor her clinical course closely. Switching to p.o. once her oral intake is improved. Continue supportive care. MMODL / IJN: [id number] /
--- NOTE | 2019-01-27 17:46 | CT ---
EXAMINATION TYPE: CT abdomen pelvis wo con DATE OF EXAM: 01/27/2019 COMPARISON: 01/21/2019 HISTORY: nausea CT DLP: 1199.40 mGycm Automated exposure control for dose reduction was used. TECHNIQUE: Helical acquisition of images was performed from the lung bases through the pelvis. FINDINGS: Heart is enlarged. There is mild right pleural effusion. There is mild pleural thickening also left p osterior lung base. There is some atelectasis at both lung bases. There is no pericardial effusion. Liver shows no focal defect. Spleen is intact. There is no sign of pancreatic mass. There are multipl e calcified gallstones. Bile ducts are not dilated. Stomach is intact. There is no adrenal mass. Kidneys have normal size. There is no hydronephrosis. Th ere are a few right-sided renal calculi that measure up to 4 mm. There is no hydronephrosis. There is no retroperitoneal adenopathy. Ureters are not dilated. There is some free fluid in the pelvis. There are multiple sigmoid diverticula. There is oral contrast in the small bowel and also in the large bowel down to the rectum. I do not se e evidence for mechanical obstruction. There are multiple distended gas-filled loops of small bowel t hat measure up to 3.3 cm. There is extensive subcutaneous edema around the abdomen and anterior pelvis. There is a first-degree L4-5 spondylolisthesis without spondylolysis. There is no lumbar compression fracture. Bony pelvis i s intact. There is a large rounded subcutaneous fluid collection over the anterior abdomen with a drain. This m easures 10 cm with high attenuation. IMPRESSION: COMPARED TO RECENT EXAM THERE HAS BEEN CLOSURE OF THE LARGE RIGHT SIDE ABDOMINAL WALL VENTRAL HERNIA. THERE IS HIGH ATTENUATION LARGE SUBCUTANEOUS FLUID COLLECTION IN THE MIDLINE ANTERIOR ABDOMEN CONSIS TENT WITH SUBCUTANEOUS HEMATOMA WITH A DRAIN IN GOOD POSITION. EXTENSIVE SUBCUTANEOUS EDEMA IS A CHANGE COMPARED TO OLD EXAM. SMALL BOWEL IS DILATED CONSISTENT WITH ILEUS. I DO NOT SEE EVIDENCE FOR MECHANICAL BOWEL OBSTRUCTION. NONOBSTRUCTING RIGHT RENAL CALCULI. CHOLELITHIASIS. PLEURAL EFFUSIONS AND BASILAR ATELECTASIS COULD R ELATE TO SOME CONGESTIVE HEART FAILURE THAT IS NEW COMPARED TO LAST EXAM.
[2019-01-27 18:22] LABS: Glucose,Whole Blood 141 mg/dL (75-99)
[2019-01-27 23:56] LABS: Glucose,Whole Blood 101 mg/dL (75-99)
[2019-01-28] MEDS ORDERED: 1: MVI, ADULT NO.4 WITH VIT K 10 ML, TRACE (CONC-1ML/DOSE) 1 ML in AMINO ACID 4.25%-D10W IV SCH ×3 (05:00)
[2019-01-28 05:47] LABS: Glucose,Whole Blood 152 mg/dL (75-99)
[2019-01-28] MEDS: INSULIN ASPART (NovoLOG) 100 UNIT/ML VIAL SQ SCH ×5 (05:50→22:12)
[2019-01-28] MEDS: METOCLOPRAMIDE 5 MG/ML 2 ML VIAL IVP SCH ×3 (05:50→17:57)
[2019-01-28] MEDS: 1: MVI, ADULT NO.4 WITH VIT K 10 ML, TRACE (CONC-1ML/DOSE) 1 ML in AMINO ACID 4.25%-D10W IV SCH ×9 (05:56→22:13)
[2019-01-28] MEDS: PIPERACILLIN-TAZOBACTAM 3.375 GM in SODIUM CHLORIDE 0.9% 100 ML IVPB SCH ×3 (07:43→23:59)
[2019-01-28] MEDS: METOPROLOL TARTRATE 12.5 MG TAB PO SCH ×2 (07:46→21:03)
[2019-01-28] MEDS: ENOXAPARIN 40 MG/0.4 ML SYRINGE SQ SCH (07:46)
[2019-01-28 08:11] LABS: Albumin 3.1 g/dL (3.5-5.0); Calcium 8.6 mg/dL (8.4-10.2); Magnesium 1.7 mg/dL (1.6-2.3); Phosphorus 3.1 mg/dL (2.5-4.5); Potassium 3.7 mmol/L (3.5-5.1); Total Bilirubin 1.1 mg/dL (0.2-1.3); Total Protein 5.7 g/dL (6.3-8.2)
[2019-01-28 12:04] LABS: Glucose,Whole Blood 144 mg/dL (75-99)
--- NOTE | 2019-01-28 14:13 | P.PN ---
Subjective Progress Note Date: 01/28/19 CHIEF COMPLAINT: Abdominal pain HISTORY OF PRESENT ILLNESS: 68-year-old female who is status post exploratory laparotomy, small bowel resection, repair of strangulated ventral hernia, repair of incarcerated umbilical hernia, and partial omentectomy with Dr. Clement performed on 01/21/2019. Patient denies any further episodes of vomiting. She does report some mild nausea this morning. Passing flatus and having bowel movements. Pain is controlled with current regimen. She reports she was up in the chair yesterday for most of the day. PHYSICAL EXAM: VITAL SIGNS: Reviewed. GENERAL: Well-developed in no acute distress. HEENT: No sclera icterus. Extraocular movements grossly intact. Moist buccal mucosa. Head is atraumatic, normocephalic. ABDOMEN: Obese. Soft. Nondistended. Midline incision with shadowing present. JESSIKA drain with sanguinous drainage. NEUROLOGIC: Alert and oriented. Cranial nerves II through XII grossly intact. ASSESSMENT: 1. Strangulated ventral hernia with ischemic small bowel and incarcerated umbilical hernia, s/p exploratory laparotomy, small bowel resection, repair of strangulated ventral hernia, repair of incarcerated umbilical hernia, and partial omentectomy 2. Acute blood loss anemia, secondary to surgery, expected PLAN: -Begin clear liquid diet. If patient tolerates, may advance to full liquid diet -If patient is able to tolerate full liquid diet for dinner, wean off PPN tonight -Increase activity as tolerated. PT/OT on consult -Incentive spirometer 10 times an hour while awake -Possible discharge within the next 24-48 hours. Patient to be discharged to [facility] at discharge Nurse practitioner note has been reviewed by physician. Signing provider agrees with the documented findings, assessment, and plan of care. Objective - Vital Signs Vital signs: Vital Signs Temp 97.6 F 01/28/19 12:10 Pulse 100 01/28/19 12:10 Resp 18 01/28/19 12:10 BP 112/64 01/28/19 12:10 Pulse Ox 93 L 01/28/19 12:10 Intake & Output 01/27/19 01/28/19 01/28/19 18:59 06:59 18:59 Intake Total 1100 1624 Output Total 30 19 30 Balance 1070 1605 -30 Weight 122 kg Intake: IV 900 280 Piperacillin-Tazobactam 3 100 200 .375 gm In Sodium Chloride 0.9% 100 ml @ 25 mls/hr IVPB Q8HR DOC Rx# :[id number] Sodium Chloride 0.9% 1, 800 80 000 ml @ 100 mls/hr IV . Q10H [facility] [place] Rx#:[id number] Intake, IV Titration 1194 Amount Fat Emulsion 20% 250 ml @ 80 21 mls/hr IV MoWeFr@0900 DOC Rx#:[id number] Magnesium Sulfate-D5w Pmx 200 1 gm In Dextrose/Water 1 100ml.bag @ 100 mls/hr IVPB Q1H DOC Rx#: [id number] Mvi, Adult No.4 with Vit 200 K 10 ml Trace (Conc-1Ml/ Dose) 1 ml In Amino Acid 4.25%-D10w+Lytes*E* 1,000 ml @ 50 mls/hr IV . [id number] DOC Rx#:[id number] Mvi, Adult No.4 with Vit 714 K 10 ml Trace (Conc-1Ml/ Dose) 1 ml In Amino Acid 4.25%-D10w+Lytes*E* 1,000 ml @ 83 mls/hr IV .BY DURATION [facility] [place] Rx#: [id number] Oral 200 150 Output: Drainage 30 19 30 Abdomen 30 19 30 Other: Voiding Method Diaper Diaper Diaper Incontinent Incontinent Incontinent # Voids 1 1 # Bowel Movements 1 - Labs CBC & Chem 7: 01/27/19 06:36 01/28/19 06:42 Labs: Abnormal Lab Results - Last 24 Hours (Table) 01/27/19 01/27/19 01/28/19 Range/Units 18:09 23:54 05:46 Chloride (98-107) mmol/L Carbon Dioxide (22-30) mmol/L BUN (7-17) mg/dL Glucose (74-99) mg/dL POC Glucose (mg/dL) 141 H 101 H 152 H (75-99) mg/dL Total Protein (6.3-8.2) g/dL Albumin (3.5-5.0) g/dL 01/28/19 01/28/19 Range/Units 06:42 11:48 Chloride 110 H (98-107) mmol/L Carbon Dioxide 19 L (22-30) mmol/L BUN 23 H (7-17) mg/dL Glucose 144 H (74-99) mg/dL POC Glucose (mg/dL) 144 H (75-99) mg/dL Total Protein 5.7 L (6.3-8.2) g/dL Albumin 3.1 L (3.5-5.0) g/dL Microbiology - Last 24 Hours (Table) 01/21/19 23:52 Blood Culture - Final Blood No Growth after 144 hours
--- NOTE | 2019-01-28 14:57 | P.PN ---
Subjective Progress Note Date: 01/28/19 Principal diagnosis: 68-year-old patient who follows Dr. Cooper. 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 Has a rather extensive medical history. Chronic stable medical conditions include GERD, hyperlipidemia, hypertension, Werner arthritis, had a stroke in 2017 left her with a slow speech, diverticulosis. Also has PTSD and depression. Patient also has a history of CHF EF of 65-70%, chronic cor pulmonale, severe secondary pulmonary hypertension and atrial fibrillation. At the [facility] patient started having increasing nausea vomiting abdominal pain that persisted. Patient brought down to the ER. Computed tomography scan of the abdomen showed incarcerated abdominal wall hernia., But small bowel obstruction. Patient underwent small bowel resection, repair of strangulated ventral hernia and incarcerated umbilical hernia and partial omentectomy. Patient has a JESSIKA drain. Initially in the ICU. 01/25/2019 Patient was evaluated on the floor today. Patient is clinically doing well patient still has a Barton catheter which need to be removed. Patient has Enterobacter cloaca in the urine which is resistant to Zosyn she is receiving. Infectious disease is following the patient patient may not require antibiotics for this once the Barton catheter is removed. 01/26/2019 Patient is complaining of some nausea may be related to medications Constitutional: Denied any fatigue denied any fever. Cardio vascular: denied any chest pain, palpitations Gastrointestinal denied any vomiting Pulmonary: Denied any shortness of breath cough Neurologic denied any new focal deficits All inpatient medications were reviewed and appropriate changes in these medications as dictated in the interval history and assessment and plan. 01/27/2019 Patient is sitting up in bed in no acute distress. No acute overnight issues. Patient states that she is fatigued and having generalized weakness and states that she has been up multiple times with physical therapy and was up for long periods of time in the chair yesterday and would like to get some rest. Patient states that she did not sleep very well last night. Currently patient denies any chest pain, palpitations, or shortness of breath. Patient has been afebrile. Patient continues to have some intermittent nausea but is tolerating ice chips. Surgery is following closely. Patient is being started on PPN for poor oral intake and will be monitored closely. Surgical dressing is dry and intact and JESSIKA drain noted to have sanguinous drainage. Abdominal binder noted on exam and expressed the importance with the patient wearing the abdominal binder around the surgical site to help with discomfort as it was noted to be rolled up underneath the breasts. Patient states that is seen as she moves positions the abdominal binder moves up and rolls up around her breasts. Discussed with the patient at length about continuing to use her incentive spirometer and patient states that she has been. PT/OT following. When discussed with the patient about possible discharge plans patient states that she will be returning to [facility]. Case management and social work are following. 01/28/2019 Patient is sitting up in the bed in no acute distress with no acute overnight issues. Patient states that she feels slightly better today and was seen by surgery today and is starting clear liquids and may advance as tolerated. Patient is currently maintained on PPN for poor oral intake and is being monitored closely. Surgical dressing remains dry and intact with alesha noted. Patient will continue to work with PT/OT for strength and mobility and will be returning to [facility] upon discharge. Currently patient denies any chest pain, shortness of breath, or palpitations. Patient is afebrile. Joni perez denies any nausea or vomiting and is currently tolerating clear liquids. Will continue to monitor closely. Objective - Vital Signs Vital signs: Vital Signs Temp 97.6 F 01/28/19 12:10 Pulse 100 01/28/19 12:10 Resp 18 01/28/19 12:10 BP 112/64 01/28/19 12:10 Pulse Ox 93 L 01/28/19 12:10 Intake & Output 01/27/19 01/28/19 01/28/19 18:59 06:59 18:59 Intake Total 1100 1624 Output Total 30 19 30 Balance 1070 1605 -30 Weight 122 kg Intake: IV 900 280 Piperacillin-Tazobactam 3 100 200 .375 gm In Sodium Chloride 0.9% 100 ml @ 25 mls/hr IVPB Q8HR DOC Rx# :[id number] Sodium Chloride 0.9% 1, 800 80 000 ml @ 100 mls/hr IV . Q10H DOC Rx#:[id number] Intake, IV Titration 1194 Amount Fat Emulsion 20% 250 ml @ 80 21 mls/hr IV MoWeFr@0900 DOC Rx#:[id number] Magnesium Sulfate-D5w Pmx 200 1 gm In Dextrose/Water 1 100ml.bag @ 100 mls/hr IVPB Q1H DOC Rx#: [id number] Mvi, Adult No.4 with Vit 200 K 10 ml Trace (Conc-1Ml/ Dose) 1 ml In Amino Acid 4.25%-D10w+Lytes*E* 1,000 ml @ 50 mls/hr IV . [id number] [facility] Rx#:[id number] Mvi, Adult No.4 with Vit 714 K 10 ml Trace (Conc-1Ml/ Dose) 1 ml In Amino Acid 4.25%-D10w+Lytes*E* 1,000 ml @ 83 mls/hr IV .BY DURATION DOC Rx#: [id number] Oral 200 150 Output: Drainage 30 19 30 Abdomen 30 19 30 Other: Voiding Method Diaper Diaper Diaper Incontinent Incontinent Incontinent # Voids 1 1 # Bowel Movements 1 - Exam GENERAL: The patient is alert and oriented x3, not in any acute distress. Obese HEENT: Pupils are round and equally reacting to light. EOMI. No scleral icterus. No conjunctival pallor. Normocephalic, atraumatic. No pharyngeal erythema. No thyromegaly. CARDIOVASCULAR: S1 and S2 present. No murmurs, rubs, or gallops. PULMONARY: Chest is clear to auscultation, no wheezing or crackles. ABDOMEN: Surgical site area is clean, dressing is dry and intact, alesha noted, and does have good bowel sounds, Barton catheter in place, JESSIKA drain noted on the right with sanguinous drainage MUSCULOSKELETAL: No joint swelling or deformity. EXTREMITIES: No cyanosis, clubbing, or pedal edema. SCDs noted bilaterally NEUROLOGICAL: Gross neurological examination did not reveal any focal deficits. SKIN: No rashes. - Labs CBC & Chem 7: 01/27/19 06:36 01/28/19 06:42 Labs: Abnormal Lab Results - Last 24 Hours (Table) 01/27/19 01/27/19 01/28/19 Range/Units 18:09 23:54 05:46 Chloride (98-107) mmol/L Carbon Dioxide (22-30) mmol/L BUN (7-17) mg/dL Glucose (74-99) mg/dL POC Glucose (mg/dL) 141 H 101 H 152 H (75-99) mg/dL Total Protein (6.3-8.2) g/dL Albumin (3.5-5.0) g/dL 01/28/19 01/28/19 Range/Units 06:42 11:48 Chloride 110 H (98-107) mmol/L Carbon Dioxide 19 L (22-30) mmol/L BUN 23 H (7-17) mg/dL Glucose 144 H (74-99) mg/dL POC Glucose (mg/dL) 144 H (75-99) mg/dL Total Protein 5.7 L (6.3-8.2) g/dL Albumin 3.1 L (3.5-5.0) g/dL Microbiology - Last 24 Hours (Table) 01/21/19 23:52 Blood Culture - Final Blood No Growth after 144 hours Assessment and Plan Assessment: -Acute incarcerated abdominal ventral wall hernia with small bowel, leading to repair of the same, she is currently on Zosyn which will be continued -Possible Barton catheter related urinary tract infection. Barton catheter will be removed and patient is on Zosyn although Citrobacter in the urine is resistant to Zosyn may not be additional antibiotics and medics at as per infectious disease -Acute kidney injury likely ATN, from hypotension improved now -Hypomagnesemia, improved currently 1.7 -Acute postop blood loss anemia as expected from surgery; current hemoglobin is 9.0 -Chronic congestive heart failure from diastolic dysfunction EF 65-70% doubt any acute exacerbation -Chronic cor pulmonale -Severe secondary pulmonary hypertension from CHF and multiple valvular disease -Hypertensive heart disease -Moderate mitral regurgitation, severe tricuspid regurgitation, mitral valve prolapse, non-traumatic -GERD -Hyperlipidemia -Essential hypertension -Primary osteoarthritis -Chronic diverticulosis -Morbid obesity BMI 65.5 -Possibly obesity hypoventilation syndrome -DVT prophylaxis: Lovenox
--- NOTE | 2019-01-28 23:26 | PN ---
PROGRESS NOTE DATE OF SERVICE: 01/28/2019 REASON FOR FOLLOWUP: Incarcerated internal hernia with ischemic small bowel, status post resection. INTERVAL HISTORY: The patient is currently afebrile. The patient is breathing comfortably. The patient did have bowel movement. He denies any further nausea or vomiting. No chest pain, shortness of breath or cough. PHYSICAL EXAMINATION: Blood pressure 131/79 with a pulse of 103, temperature of 97.8. She is 98% on 2 L nasal cannula. General description is an elderly female up in the bed in no distress. RESPIRATORY SYSTEM: Unlabored breathing with decreased breath sounds at the base. No wheeze. HEART: S1, S2. Regular rate and rhythm. ABDOMEN: Soft. No tenderness. LABS: BUN of 23, creatinine 0.87. DIAGNOSTIC IMPRESSION AND PLAN: Patient with secondary peritonitis in this patient who did have incarcerated internal hernia and small bowel ischemia, status post resection and repair of the internal hernia. The patient is slowly clinically improving. We will keep the patient on Zosyn and switch to oral antibiotic when overall intake is improved and continue with supportive care. MMODL / IJN: [id number] /
[2019-01-29] MEDS: METOCLOPRAMIDE 5 MG/ML 2 ML VIAL IVP SCH ×4 (00:01→18:05)
[2019-01-29] MEDS: INSULIN ASPART (NovoLOG) 100 UNIT/ML VIAL SQ SCH ×3 (04:08→16:01)
[2019-01-29 07:42] LABS: Albumin 2.8 g/dL (3.5-5.0); Calcium 8.5 mg/dL (8.4-10.2); Magnesium 1.7 mg/dL (1.6-2.3); Phosphorus 3.2 mg/dL (2.5-4.5); Potassium 3.5 mmol/L (3.5-5.1); Total Bilirubin 1.3 mg/dL (0.2-1.3); Total Protein 5.3 g/dL (6.3-8.2)
[2019-01-29] MEDS: 1: MVI, ADULT NO.4 WITH VIT K 10 ML, TRACE (CONC-1ML/DOSE) 1 ML in AMINO ACID 4.25%-D10W IV SCH ×3 (08:27)
[2019-01-29] MEDS: PIPERACILLIN-TAZOBACTAM 3.375 GM in SODIUM CHLORIDE 0.9% 100 ML IVPB SCH ×2 (09:54→16:23)
[2019-01-29] MEDS: METOPROLOL TARTRATE 12.5 MG TAB PO SCH ×2 (09:55→21:01)
[2019-01-29] MEDS: ENOXAPARIN 40 MG/0.4 ML SYRINGE SQ SCH (09:55)
--- NOTE | 2019-01-29 11:34 | P.PN ---
Subjective Progress Note Date: 01/29/19 CHIEF COMPLAINT: Abdominal pain HISTORY OF PRESENT ILLNESS: 68-year-old female who is status post exploratory laparotomy, small bowel resection, repair of strangulated ventral hernia, repair of incarcerated umbilical hernia, and partial omentectomy with Dr. Clement performed on 01/21/2019. Patient examined at the bedside. Abdominal pain is tolerable. Tolerating liquid diet. Denies nausea vomiting. Passing flatus and having bowel movements. PHYSICAL EXAM: VITAL SIGNS: Reviewed. GENERAL: Well-developed in no acute distress. HEENT: No sclera icterus. Extraocular movements grossly intact. Moist buccal mucosa. Head is atraumatic, normocephalic. ABDOMEN: Obese. Soft. Nondistended. Midline incision with shadowing present. JESSIKA drain with sanguinous drainage. NEUROLOGIC: Alert and oriented. Cranial nerves II through XII grossly intact. ASSESSMENT: 1. Strangulated ventral hernia with ischemic small bowel and incarcerated umbilical hernia, s/p exploratory laparotomy, small bowel resection, repair of strangulated ventral hernia, repair of incarcerated umbilical hernia, and partial omentectomy 2. Acute blood loss anemia, secondary to surgery, expected PLAN: -Advance diet -Increase activity as tolerated. PT/OT on consult -Incentive spirometer 10 times an hour while awake -Patient requesting to stay until tomorrow as she does not feel she is ready to be discharged today. Will plan on DC tomorrow morning to [facility] at discharge Nurse practitioner note has been reviewed by physician. Signing provider agrees with the documented findings, assessment, and plan of care. Objective - Vital Signs Vital signs: Vital Signs Temp 97.4 F L 01/29/19 04:52 Pulse 75 01/29/19 08:19 Resp 18 01/29/19 08:45 BP 100/61 01/29/19 08:19 Pulse Ox 93 L 01/29/19 08:19 Intake & Output 01/28/19 01/29/19 01/29/19 18:59 06:59 18:59 Intake Total 1128.45 1120 2.55 Output Total 480 18 Balance 648.45 1102 2.55 Weight 122.6 kg 122.3 kg Intake: IV 400 Piperacillin-Tazobactam 3 200 .375 gm In Sodium Chloride 0.9% 100 ml @ 25 mls/hr IVPB Q8HR DOC Rx# :[id number] Sodium Chloride 0.9% 1, 200 000 ml @ 100 mls/hr IV . Q10H DOC Rx#:[id number] Intake, IV Titration 1008.45 2.55 Amount Mvi, Adult No.4 with Vit 1008.45 2.55 K 10 ml Trace (Conc-1Ml/ Dose) 1 ml In Amino Acid 4.25%-D10w+Lytes*E* 1,000 ml @ 83 mls/hr IV .BY DURATION DOC Rx#: [id number] Oral 120 720 Output: Drainage 80 18 Abdomen 80 18 Urine 400 Other: Voiding Method Diaper Diaper Diaper Incontinent Incontinent Incontinent # Voids 2 1 - Labs CBC & Chem 7: 01/27/19 06:36 01/29/19 06:50 Labs: Abnormal Lab Results - Last 24 Hours (Table) 01/28/19 01/29/19 Range/Units 11:48 06:50 Chloride 110 H (98-107) mmol/L Carbon Dioxide 21 L (22-30) mmol/L BUN 23 H (7-17) mg/dL POC Glucose (mg/dL) 144 H (75-99) mg/dL Total Protein 5.3 L (6.3-8.2) g/dL Albumin 2.8 L (3.5-5.0) g/dL
--- NOTE | 2019-01-29 14:03 | PN ---
PROGRESS NOTE DATE OF SERVICE: 01/29/2019 REASON FOR FOLLOWUP: Secondary peritonitis, strangulated abdominal hernia. INTERVAL HISTORY: The patient is currently afebrile. The patient is breathing comfortably. The patient denies having any chest pain. No shortness of breath or cough. No nausea, no vomiting. Did have a bowel movement and no diarrhea. PHYSICAL EXAMINATION: Blood pressure is 169/62 with a pulse of 101, temperature 97.8, she is 97% on room air. General description is an elderly female, lying in bed in no distress. RESPIRATORY SYSTEM: Unlabored breathing, clear to auscultation anteriorly. HEART: S1, S2. Regular rate and rhythm. ABDOMEN: Soft, no distention, guarding or rigidity. LABS: Creatinine 0.80. No CBC was done today. Recent CT done on the 01/27 did show large fluid collection, likely hematoma. Clinically, patient not behaving as abscess. DIAGNOSTIC IMPRESSION AND PLAN: Patient with recent abdominal surgery for incarcerated strangulated hernia with small- bowel resection, concern for possible secondary peritonitis. Patient is currently on Zosyn. Patient's white count is normal. Not running any fever. CT did show large fluid, possible hematoma, as clinically not behaving as abscess. Keep the patient on Zosyn and watch the clinical course closely. Continue supportive care. MMODL / IJN: [id number] /
[2019-01-29] MEDS: HYDROcodone/APAP 5-325MG 1 EACH TAB PO PRN (16:20)
--- NOTE | 2019-01-29 19:18 | P.PN ---
Progress Note - Text Progress Note Date: 01/29/19 - Chief Complaint Abdominal pain History of presenting complaint: This is a 68-year-old patient who follows Dr. Cooper. 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 Has a rather extensive medical history. Chronic stable medical conditions include GERD, hyperlipidemia, hypertension, Werner arthritis, had a stroke in 2017 left her with a slow speech, diverticulosis. Also has PTSD and depression. Patient also has a history of CHF EF of 65-70%, chronic cor pulmonale, severe secondary pulmonary hypertension and atrial fibrillation. At the ECF patient started having increasing nausea vomiting abdominal pain that persisted. Patient brought down to the ER. Computed tomography scan of the abdomen showed incarcerated abdominal wall hernia., But small bowel obstruction. Patient underwent small bowel resection, repair of strangulated ventral hernia and incarcerated umbilical hernia and partial omentectomy. Concern for secondary peritonitis. Patient on IV Zosyn. Computed tomography scan done on January 27 showed a large subcutaneous fluid collection believed to be hematoma. Patient has a JESSIKA drain. Patient initially was in the ICU then moved to the medical floor.. Today-sitting up in a chair. Brother and [id number] visiting. Diet was advanced to a regular diet by surgery this morning. Has had bowel movements. No pain. No nausea vomiting. Did walk 20 feet with a rolling walker but physical therapy Review of systems: Was done for constitutional, cardiovascular, GI, pulmonary. relevant finding as above Active Medications Acetaminophen (Tylenol Tab) 650 mg PO Q6HR PRN PRN Reason: Mild Pain or Fever >= 100.5 Last Admin: 01/23/19 11:48 Dose: 650 mg Documented by: Hydrocodone Bitart/Acetaminophen ([place] 5-325) 2 each PO Q6HR PRN PRN Reason: Moderate to Severe Pain Last Admin: 01/29/19 16:20 Dose: 1 each Documented by: Enoxaparin Sodium (Lovenox) 40 mg SQ DAILY DOC Last Admin: 01/29/19 09:55 Dose: 40 mg Documented by: Piperacillin Sod/Tazobactam (Sod 3.375 gm/ Sodium Chloride) 100 mls @ 25 mls/hr IVPB Q8HR DOC Last Admin: 01/29/19 16:23 Dose: 25 mls/hr Documented by: Insulin Aspart (Novolog) 0 unit SQ Q6HR DOC; Protocol Last Admin: 01/29/19 16:01 Dose: Not Given Documented by: Metoclopramide HCl (Reglan) 10 mg IVP Q6HR [facility] Last Admin: 01/29/19 18:05 Dose: 10 mg Documented by: Metoprolol Tartrate (Lopressor) 12.5 mg PO BID [facility] Last Admin: 01/29/19 09:55 Dose: 12.5 mg Documented by: Miscellaneous Information (Potassium Per Protocol) 1 each MISCELLANE DAILY PRN; Protocol PRN Reason: Per Protocol Naloxone HCl (Narcan) 0.2 mg IV Q2M PRN PRN Reason: Opioid Reversal Physical examination: VITAL SIGNS: 97.8, 101, 18, 11 6/62, 97% on room air GENERAL: Sitting up in a chair, comfortable EYES: Pupils equal. Conjunctiva pale HEENT: External appearance of nose and ears normal, oral cavity grossly normal. NECK: Short and thick, JVD unable to assess; masses not palpable. HEART: Heart sounds muffled; edema present. LUNGS: Respiratory rate normal; distant breath sounds. ABDOMEN: Soft, tender, dressing over the incision wound, liver spleen not palpable, no masses palpable. Bowel sounds present PSYCH: Alert and oriented x3; mood and affect normal. INVESTIGATIONS, reviewed in the clinical context: Potassium 3.5 creatinine 0.8 hemoglobin 9 Previous testing White count 8.3 hemoglobin 10.2. Has 115 potassium 4.5 bun 26 creatinine 1.23 UA positive Computed tomography scan abdomen-incarcerated abdominal wall hernia with small bowel at the same. Patient's creatinine was 0.84 on 12/29/2018 Assessment: -Acute incarcerated abdominal ventral wall hernia with small bowel, leading to repair of the same, -Acute kidney injury likely ATN, from hypotension, corrected -Acute postop blood loss anemia as expected from surgery -Chronic congestive heart failure from diastolic dysfunction EF 65-70% -Chronic cor pulmonale -Severe secondary pulmonary hypertension from CHF -Hypertensive heart disease -Moderate mitral regurgitation, severe tricuspid regurgitation, mitral valve prolapse, nontraumatic t -GERD -Hyperlipidemia -Essential hypertension -Primary osteoarthritis -Chronic diverticulosis -Morbid obesity BMI 54.5 -Possibly obesity hypoventilation syndrome Plan: Care was discussed with the patient and family the bedside. Questions were answered. Overall doing much better. Hopefully DC'd to the the F tomorrow. Thank you Dr. Clement
[2019-01-30] MEDS: PIPERACILLIN-TAZOBACTAM 3.375 GM in SODIUM CHLORIDE 0.9% 100 ML IVPB SCH ×2 (00:10→08:35)
[2019-01-30] MEDS: METOCLOPRAMIDE 5 MG/ML 2 ML VIAL IVP SCH ×3 (00:10→11:27)
[2019-01-30 07:52] LABS: ALT 20 U/L (9-52); AST 16 U/L (14-36); African American GFR (CKD) >90 (>60 ml/min/1.73 sqM); Alkaline Phosphatase 55 U/L (38-126); Anion Gap 9 mmol/L; Blood Urea Nitrogen 20 mg/dL (7-17); Calcium 8.8 mg/dL (8.4-10.2); Carbon Dioxide 21 mmol/L (22-30); Chloride 109 mmol/L (98-107); Glucose 84 mg/dL (74-99); Magnesium 1.7 mg/dL (1.6-2.3); Phosphorus 3.3 mg/dL (2.5-4.5); Potassium 3.5 mmol/L (3.5-5.1); Sodium 139 mmol/L (137-145); Total Bilirubin 1.5 mg/dL (0.2-1.3); Total Protein 5.6 g/dL (6.3-8.2)
[2019-01-30] MEDS: METOPROLOL TARTRATE 12.5 MG TAB PO SCH (08:36)
[2019-01-30] MEDS: ENOXAPARIN 40 MG/0.4 ML SYRINGE SQ SCH (08:36)
[2019-01-30 09:36] VITALS: BMI 54.5
--- NOTE | 2019-01-30 09:52 | P.DS ---
Providers Date of admission: 01/21/19 20:03 Expected date of discharge: 01/30/19 Attending physician: Oren Clement Consults: 01/21/19 22:29 Consult Physician Routine Consulting Provider: Soledad Magaña Consult Reason/Comments: Medical management Do you want consulting provider notified?: Yes Consult Physician Routine Consulting Provider: Darian Lassiter Consult Reason/Comments: Strangulated hernia, small bowel resection Do you want consulting provider notified?: Yes, Notify in am 01/21/19 22:32 Consult Physician Routine Consulting Provider: Soledad Magaña Consult Reason/Comments: ICU management Do you want consulting provider notified?: Already Contacted 01/23/19 12:24 Consult Physician Routine Consulting Provider: Hector Felipe Consult Reason/Comments: medical management Do you want consulting provider notified?: Yes Primary care physician: Elieser Va Hospital Course: 68-year-old female who presented to the ER with a chief complaint of abdominal pain. Patient underwent exploratory laparotomy, small bowel resection, repair of strangulated ventral hernia, repair of incarcerated umbilical hernia, and partial omentectomy with Dr. Clement on 01/21/2019. Patient is doing well postoperatively without any immediate complications. She is tolerating diet. Passing flatus and having bowel movements. Pain is controlled on oral medi cations. Vital signs have been stable. She is stable for discharge to subacute rehab today. Please see EMR for further hospital course details. Discharge Diagnosis: 1. Strangulated ventral hernia with ischemic small bowel and incarcerated umbilical hernia, s/p exploratory laparotomy, small bowel resection, repair of strangulated ventral hernia, repair of incarcerated umbilical hernia, and partial omentectomy 2. Acute blood loss anemia, secondary to surgery, expected Nurse practitioner note has been reviewed by physician. Signing provider agrees with the documented findings, assessment, and plan of care. Plan - Discharge Summary Discharge Rx Participant: Yes New Discharge Prescriptions: New Acetaminophen Tab [Tylenol Tab] 650 mg PO Q4H PRN #30 tablet PRN Reason: Pain No Action Atorvastatin [Lipitor] 40 mg PO HS Losartan [Cozaar] 12.5 mg PO DAILY 30 Days #30 tab Furosemide [Lasix] 80 mg PO BID@0900,1600 30 Days #60 tab Metoprolol Tartrate [Lopressor] 25 mg PO BID 30 Days #60 tab Acetaminophen [Tylenol] 650 mg PO Q6H PRN PRN Reason: Pain Or Fever > 100.5 Tolnaftate [Tolnaftate 1%] 1 applic TOPICAL TID PRN PRN Reason: CANDIDIASIS Potassium Chloride ER [K-Dur 20] 20 meq PO BID@799,1999 Spironolactone 50 mg PO DAILY Magnesium Hydroxide [Milk of Magnesia] 2,400 mg PO Q72H PRN PRN Reason: Constipation Discharge Medication List Atorvastatin [Lipitor] 40 mg PO HS 05/29/17 [History] Furosemide [Lasix] 80 mg PO BID@0900,1600 30 Days #60 tab 12/30/18 [Rx] Losartan [Cozaar] 12.5 mg PO DAILY 30 Days #30 tab 12/30/18 [Rx] Metoprolol Tartrate [Lopressor] 25 mg PO BID 30 Days #60 tab 12/30/18 [Rx] Acetaminophen [Tylenol] 650 mg PO Q6H PRN 01/21/19 [History] Magnesium Hydroxide [Milk of Magnesia] 2,400 mg PO Q72H PRN 01/21/19 [History] Potassium Chloride ER [K-Dur 20] 20 meq PO BID@01/21/19 [History] Spironolactone 50 mg PO DAILY 01/21/19 [History] Tolnaftate [Tolnaftate 1%] 1 applic TOPICAL TID PRN 01/21/19 [History] Acetaminophen Tab [Tylenol Tab] 650 mg PO Q4H PRN #30 tablet 01/30/19 [Rx] Follow up Appointment(s)/Referral(s): Elieser Cooper DO [Primary Care Provider] - 1-2 days Oren Clement MD [STAFF PHYSICIAN] - 1 Week Activity/Diet/Wound Care/Special Instructions: Tylenol as needed for pain Keep a log of JESSIKA drain output You may shower. No tub baths or soaking Activity as tolerated Diet as tolerated
--- NOTE | 2019-01-30 12:20 | PN ---
PROGRESS NOTE DATE OF SERVICE: 01/30/2019 REASON FOR FOLLOWUP: Incarcerated internal hernia with secondary peritonitis. INTERVAL HISTORY: The patient is currently afebrile. The patient is breathing comfortably. Patient denies having any chest pain or cough. Nausea but no vomiting. Has been tolerating her diet and no diarrhea. PHYSICAL EXAMINATION: Blood pressure is 118/75 with a pulse of 68, temperature is 97.4. She is 92% on room air. General description is an elderly female up in the chair in no distress. RESPIRATORY SYSTEM: Unlabored breathing and is clear to auscultation anteriorly. HEART: S1, S2. Regular rate and rhythm. ABDOMEN: Soft. No tenderness. LABS: BUN is 20, creatinine 0.77. DIAGNOSTIC IMPRESSION AND PLAN: Patient with secondary peritonitis in a patient who did have an incarcerated internal hernia with strangulation, status post resection of portion bowel. The patient is currently covered with Zosyn with overall improvement being afebrile. White count normal. We will give a short course of oral Cipro and Flagyl for about a week and close outpatient followup. Plan of care was discussed with the nurse practitioner for admitting team. MMODL / IJN: [id number] /
[2019-01-30 12:26] VITALS: BP 120/76; PULSE 73; RESP 17; TEMP 98
--- NOTE | 2019-01-31 19:58 | P.PN ---
Progress Note - Text Progress Note Date: 01/30/19 - Chief Complaint Abdominal pain History of presenting complaint: This is a 68-year-old patient who follows Dr. Cooper. 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 Has a rather extensive medical history. Chronic stable medical conditions include GERD, hyperlipidemia, hypertension, Werner arthritis, had a stroke in 2017 left her with a slow speech, diverticulosis. Also has PTSD and depression. Patient also has a history of CHF EF of 65-70%, chronic cor pulmonale, severe secondary pulmonary hypertension and atrial fibrillation. At the [facility] patient started having increasing nausea vomiting abdominal pain that persisted. Patient brought down to the ER. Computed tomography scan of the abdomen showed incarcerated abdominal wall hernia., But small bowel obstruction. Patient underwent small bowel resection, repair of strangulated ventral hernia and incarcerated umbilical hernia and partial omentectomy. Concern for secondary peritonitis. Patient on IV Zosyn. Computed tomography scan done on January 27 showed a large subcutaneous fluid collection believed to be hematoma. Patient has a JESSIKA drain. Patient initially was in the ICU then moved to the medical floor.. Today-sitting up in a chair. Cough. Did tolerate her meals. Had a bowel movement. Pain well controlled. No new issues. Review of systems: Was done for constitutional, cardiovascular, GI, pulmonary. relevant finding as above current medications reviewed in today's electronic records Physical examination: VITAL SIGNS: 97.4, 68, 16, 11 8/75, 92% room air GENERAL: Sitting up in a chair, comfortable EYES: Pupils equal. Conjunctiva pale HEENT: External appearance of nose and ears normal, oral cavity grossly normal. NECK: Short and thick, JVD unable to assess; masses not palpable. HEART: Heart sounds muffled; edema present. LUNGS: Respiratory rate normal; distant breath sounds. ABDOMEN: Soft, tender, dressing over the incision wound, liver spleen not palpable, no masses palpable. Bowel sounds present PSYCH: Alert and oriented x3; mood and affect normal. INVESTIGATIONS, reviewed in the clinical context: potassium 3.5 creatinine 0.77 Previous testing White count 8.3 hemoglobin 10.2. Has 115 potassium 4.5 bun 26 creatinine 1.23 UA positive Computed tomography scan abdomen-incarcerated abdominal wall hernia with small bowel at the same. Patient's creatinine was 0.84 on 12/29/2018 Assessment: -Acute incarcerated abdominal ventral wall hernia with small bowel, leading to repair of the same, -Acute kidney injury likely ATN, from hypotension, corrected -Acute postop blood loss anemia as expected from surgery -Chronic congestive heart failure from diastolic dysfunction EF 65-70% -Chronic cor pulmonale -Severe secondary pulmonary hypertension from CHF -Hypertensive heart disease -Moderate mitral regurgitation, severe tricuspid regurgitation, mitral valve prolapse, nontraumatic t -GERD -Hyperlipidemia -Essential hypertension -Primary osteoarthritis -Chronic diverticulosis -Morbid obesity BMI 54.5 -Possibly obesity hypoventilation syndrome Plan: continue current medication treatment plan. Stable to discharge to [facility]. Care was discussed the patient. Thank you Dr. Clement
--- NOTE | 2019-02-03 12:16 | CDI ---
Documentation Clarification Form Date: 02/03/2019 12:05:39 PM From: Letha Rizo Phone: If you have a question about this query, please contact Jimena Brewer Continuous Improvement Manager at [phone] between 8am and 5pm. Admit Date: 01/21/2019 8:03:00 PM Patient Name: Ana Sheppard Visit Number: [id number] Discharge Date: 01/30/2019 3:10:00 PM ATTENTION: The Clinical Documentation Specialists (CDI) and [facility] Coding Staff appreciate your assistance in clarifying documentation. Please respond to the clarification below the line at the bottom and electronically sign. The CDI & [facility] Coding staff will review the response and follow-up if needed. Please note: Queries are made part of the Legal Health Record. If you have any questions, please contact the author of this message via ITS. Dr. Oren Clement Conflicting documentation has been found in the medical record: PN 01/28 "Possilbe Barton Catheter related UTI" ID documents the patient may not require antibiotics once Barton Catheter is removed. PN 01/26 Lcinically doubt symptomatic UTI. Please clarify if patient had a UTI, if so was it due to Barton, or was UTI ruled out. History/Risk Factors: Perotinitis, gangrenous small bowel with incarcerated hernia. Barton catheter Treatment: antibiotics In your opinion, what is the most clinically appropriate diagnosis for this patient? UTI UTI due to Barton catheter UTI ruled out Other explanation of clinical findings Unable to determine (no explanation for clinical findings) unable to determine MTDD
== END 2019-01-30 15:10 | DRG 329 ==
LOC: SUPCPDRO 17:41 → EC 17:41 → 4SSUR 20:03 → 2SICU 22:20 → 3NMEDONC 01-24 12:52
PROVIDERS: ADMIT Surgery; ATTEND Surgery
PROC: 0WQF0ZZ Repair Abdominal Wall, Open Approach (ICD-10-PCS; 2019-01-21)
PROC: 0WQF0ZZ Repair Abdominal Wall, Open Approach (ICD-10-PCS; 2019-01-21)
PROC: 0DB80ZZ Excision of Small Intestine, Open Approach (ICD-10-PCS; principal; 2019-01-21 20:33)
PROC: 0DBU0ZZ Excision of Omentum, Open Approach (ICD-10-PCS; 2019-01-21 20:33)
PROC: 05HY33Z Insertion of Infusion Device into Upper Vein, Percutaneous Approach (ICD-10-PCS; 2019-01-27)
DX: K43.1 Incisional hernia with gangrene (principal); K65.9 Peritonitis, unspecified; N17.0 Acute kidney failure with tubular necrosis; I50.32 Chronic diastolic (congestive) heart failure; N39.0 Urinary tract infection, site not specified; D62 Acute posthemorrhagic anemia; E87.2 Acidosis; I48.20 Chronic atrial fibrillation, unspecified; Z16.11 Resistance to penicillins; Z68.44 Body mass index [BMI] 60.0-69.9, adult; I69.354 Hemiplegia and hemiparesis following cerebral infarction affecting left non-dominant side; I42.9 Cardiomyopathy, unspecified; R18.8 Other ascites; K55.1 Chronic vascular disorders of intestine; Z68.42 Body mass index [BMI] 45.0-49.9, adult; L76.32 Postprocedural hematoma of skin and subcutaneous tissue following other procedure; K42.0 Umbilical hernia with obstruction, without gangrene; B96.89 Other specified bacterial agents as the cause of diseases classified elsewhere; E66.01 Morbid (severe) obesity due to excess calories; E78.5 Hyperlipidemia, unspecified; E83.42 Hypomagnesemia; F32.9 Major depressive disorder, single episode, unspecified; F43.10 Post-traumatic stress disorder, unspecified; I08.1 Rheumatic disorders of both mitral and tricuspid valves; I11.0 Hypertensive heart disease with heart failure; I27.29 Other secondary pulmonary hypertension; K21.9 Gastro-esophageal reflux disease without esophagitis; M19.91 Primary osteoarthritis, unspecified site; Z79.899 Other long term (current) drug therapy; Z82.49 Family history of ischemic heart disease and other diseases of the circulatory system; Z87.19 Personal history of other diseases of the digestive system; Z87.442 Personal history of urinary calculi; Z86.010 Personal history of colon polyps; I95.9 Hypotension, unspecified; I69.328 Other speech and language deficits following cerebral infarction; H54.62 Unqualified visual loss, left eye, normal vision right eye; M54.31 Sciatica, right side; G89.29 Other chronic pain; Z82.0 Family history of epilepsy and other diseases of the nervous system; K57.90 Diverticulosis of intestine, part unspecified, without perforation or abscess without bleeding; Z88.6 Allergy status to analgesic agent; Z91.041 Radiographic dye allergy status; I27.81 Cor pulmonale (chronic)
CPT/HCPCS: 36410; 36415; 71045; 74176; 76937; 80048; 80053; 81001; 82150; 82330; 83605; 83690; 83735; 84100; 84478; 84484; 85025; 85027; 87040; 87077; 87086; 87186; 88302; 88307; 96361; 96374; 96375; 99291

== ENCOUNTER 2019-03-18 17:02 | Inpatient (IN) | payer MEDICARE, BC ==
--- NOTE | 2019-03-18 17:33 | ED ---
General Adult HPI - General Chief complaint: Skin/Abscess/Foreign Body Stated complaint: Postsurgical drainage Time Seen by Provider: 03/18/19 17:14 Source: patient, RN notes reviewed Mode of arrival: EMS Limitations: no limitations - History of Present Illness Initial comments: Patient is a pleasant 68-year-old female presenting to the emergency department with drainage from her abdomen. Patient did have emergent hernia repair surgery done recently. Today after physical therapy agent did notice a large amount of drainage which continues. Patient denies any pain. Patient has had decreased appetite since surgery but is still tolerating oral intake. Patient denies any fevers. No constipation or diarrhea. Patient has been passing less gas than normal. - Related Data Home Medications Medication Instructions Recorded Confirmed Atorvastatin [Lipitor] 40 mg PO HS 05/29/17 01/21/19 Magnesium Hydroxide [Milk of 2,400 mg PO Q72H PRN 01/21/19 01/21/19 Magnesia] Spironolactone 50 mg PO DAILY 01/21/19 01/21/19 Tolnaftate [Tolnaftate 1%] 1 applic TOPICAL TID PRN 01/21/19 01/21/19 Previous Rx's Medication Instructions Recorded Metoprolol Tartrate [Lopressor] 25 mg PO BID 30 Days #60 tab 12/30/18 Acetaminophen Tab [Tylenol Tab] 650 mg PO Q4H PRN #30 tablet 01/30/19 Ciprofloxacin HCl [Cipro] 500 mg PO Q12H #14 tab 01/30/19 Metoprolol Tartrate [Lopressor] 12.5 mg PO BID tab 01/30/19 metroNIDAZOLE [Flagyl] 500 mg PO Q8HR #21 tab 01/30/19 Allergies Allergy/AdvReac Type Severity Reaction Status Date / Time aspirin AdvReac Unknown STATES SHE Verified 03/18/19 17:22 WAS TOLD NOT TO TAKE. Iodinated Contrast Media AdvReac Unknown STATES SHE Verified 03/18/19 17:22 [Iodinated Contrast- Oral WAS TOLD and IV Dye] TO AVOID NSAIDS (Non-Steroidal AdvReac Unknown STATES SHE Verified 03/18/19 17:22 Anti-Inflamma WAS TOLD TO AVOID Review of Systems ROS Statement: Those systems with pertinent positive or pertinent negative responses have been documented in the HPI. ROS Other: All systems not noted in ROS Statement are negative. Constitutional: Denies: fever Eyes: Denies: eye pain ENT: Denies: ear pain Respiratory: Denies: cough Cardiovascular: Denies: chest pain Endocrine: Denies: fatigue Gastrointestinal: Reports: as per HPI Genitourinary: Denies: dysuria Musculoskeletal: Denies: back pain Skin: Denies: rash Neurological: Denies: weakness 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 states that it left her with slower speech, cardiopmyopathy, bradycardia, nephrolithiasis-passed stones twice on her own, anemia, lower GI bleed, diverticulosis, benign colon polyps, 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 Past Anesthesia/Blood Transfusion Reactions: No Reported Reaction Type of Cardiac Device: Permanent Pacemaker Device Placement Date:: 04/24/2013 placed and gen change in May 2017 Past Psychological History: Anxiety, Depression, PTSD Smoking Status: Never smoker Past Alcohol Use History: Rare Past Drug Use History: None Reported - Past Family History Father Additional Family Medical History / Comment(s): BRAIN ANEURYSM Mother Family Medical History: Coronary Artery Disease (CAD), Dementia Additional Family Medical History / Comment(s): FROM "HEART DISEASE" PER PATIENT. General Exam Limitations: no limitations General appearance: alert Head exam: Present: normocephalic Eye exam: Present: normal appearance, PERRL ENT exam: Present: normal oropharynx Neck exam: Present: normal inspection Respiratory exam: Present: normal lung sounds bilaterally Cardiovascular Exam: Present: regular rate, normal rhythm GI/Abdominal exam: Present: soft, other (Vertical incision with him. Portion with pinpoint opening with serous brown fluid drainage.). Absent: distended, tenderness Extremities exam: Present: normal inspection Neurological exam: Present: alert Psychiatric exam: Present: normal affect, normal mood Skin exam: Present: erythema (Trace erythema near the surgical site) Course Vital Signs 03/18/19 03/18/19 17:19 18:07 Temperature 98.3 F 98.9 F Pulse Rate 108 H 110 H Respiratory 21 17 Rate Blood Pressure 138/89 113/86 O2 Sat by Pulse 96 97 Oximetry EKG Findings - EKG Comments: EKG Findings:: Demand pacer with a rate of 99. QRS 88. QT 338. QTC 433. Right axis. Nonspecific ST-T. Medical Decision Making - Medical Decision Making Case was detail with Dr. Sarah who does feel the patient needs to be admitted and recommends computed tomography scan of the abdomen pelvis with oral contrast, long preparation. - Lab Data Result diagrams: 03/18/19 17:44 Lab Results 03/18/19 03/18/19 Range/Units 17:44 17:44 Sodium 139 (137-145) mmol/L Potassium 3.8 (3.5-5.1) mmol/L Chloride 110 H (98-107) mmol/L Carbon Dioxide 17 L (22-30) mmol/L Anion Gap 12 mmol/L BUN 15 (7-17) mg/dL Creatinine 0.67 (0.52-1.04) mg/dL Est GFR (CKD-EPI)AfAm >90 (>60 ml/min/1.73 sqM) Est GFR (CKD-EPI)NonAf 90 (>60 ml/min/1.73 sqM) Glucose 96 (74-99) mg/dL Plasma Lactic Acid Eduardo 1.4 (0.7-2.0) mmol/L Calcium 9.1 (8.4-10.2) mg/dL Total Bilirubin 1.2 (0.2-1.3) mg/dL AST 21 (14-36) U/L ALT 10 (4-34) U/L Alkaline Phosphatase 119 (38-126) U/L Total Protein 6.7 (6.3-8.2) g/dL Albumin 3.4 L (3.5-5.0) g/dL Disposition Clinical Impression: Fistula Disposition: ADMITTED IP TO THIS HOSP Is patient prescribed a controlled substance at d/c from ED?: No Referrals: Elieser Cooper DO [Primary Care Provider] - 1-2 days Decision Time: 18:11
[2019-03-18] MEDS ORDERED: IOPAMIDOL CONTRAST (ORAL USE) VIAL PO PRN (18:07)
[2019-03-18 18:08] LABS: ALT 10 U/L (4-34); AST 21 U/L (14-36); African American GFR (CKD) >90 (>60 ml/min/1.73 sqM); Albumin 3.4 g/dL (3.5-5.0); Alkaline Phosphatase 119 U/L (38-126); Anion Gap 12 mmol/L; Blood Urea Nitrogen 15 mg/dL (7-17); Calcium 9.1 mg/dL (8.4-10.2); Carbon Dioxide 17 mmol/L (22-30); Chloride 110 mmol/L (98-107); Glucose 96 mg/dL (74-99); Non-African American GFR(CKD) 90 (>60 ml/min/1.73 sqM); Potassium 3.8 mmol/L (3.5-5.1); Sodium 139 mmol/L (137-145); Total Bilirubin 1.2 mg/dL (0.2-1.3); Total Protein 6.7 g/dL (6.3-8.2)
[2019-03-18] MEDS ORDERED: FAMOTIDINE 20 MG/2 ML VIAL IV ONE (18:09)
[2019-03-18] MEDS ORDERED: diphenhydrAMINE 50 MG/ML 1 ML VIAL IVP ONE (18:09)
[2019-03-18] MEDS ORDERED: methylPREDNISolone SOD SUCCI 125 MG/2 ML VIAL IV ONE (18:09)
[2019-03-18] MEDS ORDERED: AMPICILLIN-SULBACTAM 1.5 GM in SODIUM CHLORIDE 0.9% 50 ML IVPB STA (18:11)
[2019-03-18] MEDS ORDERED: NALOXONE 0.4 MG/ML 1 ML VIAL IV PRN (18:12)
[2019-03-18 18:13] LABS: INR 1.1 (<1.2); Partial Thromboplastin Time 31.5 sec (22.0-30.0); Prothrombin Time 11.4 sec (9.0-12.0)
[2019-03-18] MEDS: SODIUM CHLORIDE 0.9% 1,000 ML IV SCH (18:17)
[2019-03-18 19:00] LABS: Appearance,Urine Cloudy (Clear); Bacteria,Urine Many /hpf; Bilirubin,Urine Negative (Negative); Blood,Urine Negative (Negative); Color,Urine Yellow; Glucose,Urine (UA) Negative (Negative); Hyaline Casts,Urine 16 /lpf (0-2); Ketones,Urine Negative (Negative); Leukocyte Esterase,Urine Negative (Negative); Mucus,Urine Rare /hpf; Nitrite,Urine Negative (Negative); PH, Urine 5.5 (5.0-8.0); Protein,Urine 1+ (Negative); RBC,Urine 2 /hpf (0-5); Specific Gravity,Urine 1.034 (1.001-1.035); WBC,Urine 6 /hpf (0-5)
[2019-03-18 19:07] LABS: Anisocytosis Slight; Basophils % (A) 0 %; Eosinophils # (A) 0.1 k/uL (0-0.7); Eosinophils % (A) 1 %; HCT 36.9 % (34.0-46.0); HGB 11.3 gm/dL (11.4-16.0); Hypochromasia Slight; Lymphocytes # (A) 0.3 k/uL (1.0-4.8); Lymphocytes % (A) 5 %; MCHC 30.7 g/dL (31.0-37.0); MCV 94.5 fL (80.0-100.0); Mean Platelet Volume 9.3; Monocytes # (A) 0.4 k/uL (0-1.0); Monocytes % (A) 5 %; Neutrophils # (A) 5.8 k/uL (1.3-7.7); Neutrophils % (A) 88 %; RDW 17.3 % (11.5-15.5); WBC 6.6 k/uL (3.8-10.6)
[2019-03-18 19:16] LABS: Platelet Count 287 k/uL (150-450)
--- NOTE | 2019-03-18 22:19 | CT ---
EXAMINATION TYPE: CT abdomen pelvis wo con DATE OF EXAM: 03/18/2019 COMPARISON: 01/27/2019 HISTORY: Post double hernia surgery. CT DLP: 2077.2 mGycm Automated exposure control for dose reduction was used. Multiple axial sections were obtained from the diaphragm to the floor the pelvis with oral contrast o nly. There is right pleural effusion. Heart is enlarged. There is no pericardial effusion. There is hiatal hernia. There are multiple calcified gallstones. Liver shows no focal defect. Spleen is intact. There is no e vidence of pancreatic mass. There is no adrenal mass. Kidneys have normal size. There is no hydronephrosis. There are a few calcu li in the right kidney that measure up to 5 mm. There is no retroperitoneal adenopathy. Appendix appe ars normal. Bladder distends smoothly. There is small amount of free fluid in the pelvis. There is si gmoid diverticula. There is no sign of diverticulitis. There is no ascites. There is no mesenteric edema. There is no sign of a bowel obstruction. There is extensive subcutaneous edema around the Abdomen. There is lower abdominal anterior wall fluid collection that measures 9 x 4 cm extending to the skin surface. This is apparently at the site of umbilical hernia. There is multilevel spondylotic change in the lumbar spine. There is a degenerative first-degree L4-5 spondylolisthesis. Bony pelvis appears intact. IMPRESSION: Large subcutaneous fluid collection on the lower anterior abdominal wall consistent with umbilical he rnia that contains low-attenuation fluid in could BE seroma or chronic hematoma. Abscess is possible. There is been removal of drainage catheter in the fluid collection compared to last exam. Fluid appe ars overall slightly smaller. There is extensive subcutaneous edema around the abdomen that is probably worse than last exam. Right pleural effusion and cardiomegaly. Pleural fluid improved compared to last exam. Cholelithiasis . There is small amount of fluid in the pelvis improved slightly compared to last exam.
[2019-03-18] MEDS: AMPICILLIN-SULBACTAM 1.5 GM in SODIUM CHLORIDE 0.9% 50 ML IVPB SCH (23:51)
[2019-03-19] MEDS: ACETAMINOPHEN TAB 325 MG TAB PO PRN ×2 (01:17→05:21)
[2019-03-19] MEDS: SODIUM CHLORIDE 0.9% 1,000 ML IV SCH ×3 (01:44→15:42)
[2019-03-19] MEDS: METOPROLOL SUCCINATE (ER) 100 MG TAB.ER.24H PO SCH ×3 (01:44→21:00)
[2019-03-19 12:18] LABS: Anisocytosis Slight; Basophils % (A) 0 %; Eosinophils # (A) 0.1 k/uL (0-0.7); Eosinophils % (A) 2 %; HCT 34.2 % (34.0-46.0); HGB 10.7 gm/dL (11.4-16.0); Hypochromasia Moderate; Lymphocytes # (A) 0.5 k/uL (1.0-4.8); Lymphocytes % (A) 9 %; MCHC 31.3 g/dL (31.0-37.0); MCV 95.8 fL (80.0-100.0); Macrocytosis Slight; Mean Platelet Volume 9.4; Monocytes # (A) 0.4 k/uL (0-1.0); Monocytes % (A) 7 %; Neutrophils # (A) 4.8 k/uL (1.3-7.7); Neutrophils % (A) 80 %; Platelet Count 341 k/uL (150-450); RBC 3.57 m/uL (3.80-5.40); RDW 17.4 % (11.5-15.5)
[2019-03-19 12:27] LABS: Potassium 4.5 mmol/L (3.5-5.1)
[2019-03-19 12:28] LABS: African American GFR (CKD) >90 (>60 ml/min/1.73 sqM); Anion Gap 10 mmol/L; Blood Urea Nitrogen 14 mg/dL (7-17); Calcium 8.6 mg/dL (8.4-10.2); Carbon Dioxide 14 mmol/L (22-30); Chloride 113 mmol/L (98-107); Glucose 80 mg/dL (74-99); Non-African American GFR(CKD) >90 (>60 ml/min/1.73 sqM); Sodium 137 mmol/L (137-145)
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
[2019-03-19] MEDS: AMPICILLIN-SULBACTAM 1.5 GM in SODIUM CHLORIDE 0.9% 50 ML IVPB SCH ×2 (14:33→15:42)
[2019-03-19] MEDS: PANTOPRAZOLE 40 MG/10 ML VIAL IV SCH (14:33)
[2019-03-20] MEDS: AMPICILLIN-SULBACTAM 1.5 GM in SODIUM CHLORIDE 0.9% 50 ML IVPB SCH ×3 (00:19→17:55)
[2019-03-20] MEDS: SODIUM CHLORIDE 0.9% 1,000 ML IV SCH ×3 (00:21→20:02)
--- NOTE | 2019-03-20 06:55 | CONS ---
CONSULTATION REASON FOR CONSULTATION: Advice regarding atrial ablation, CHF and other multiple medical issues requested by Dr. Monte. HISTORY OF PRESENT ILLNESS: This 68-year-old woman with a past medical history of atrial fibrillation, history of CVA, TIA, GERD, history of hypertension, hyperlipidemia, being followed by Dr. Elieser Cooper in the outpatient setting was admitted with history of the complaints of drainage from the right anterior abdominal wound. The patient had emergency surgery for small bowel obstruction due to incisional hernia. The patient has some darkish of fluid oozing from the abdominal cavity from the abdominal wall and the patient was taken to [facility] and admitted for further evaluation and treatment. The abdomen pelvis CAT scan done in the ER showed large subcutaneous fluid collection in the lower anterior abdominal wall consistent with umbilical hernia contains low attenuation fluid could be seroma or chronic hematoma or abscess. Extensive subcutaneous edema was also noted. There is no history of any fever, rigors. No history of headache, loss of consciousness, seizure. No history of shortness of breath. PAST MEDICAL HISTORY: History of CHF, history of atrial fibrillation, history of DJD, history of hypertension, hyperlipidemia, history of CVA, TIA. MEDICATIONS: Medications prior to admission home medications are: 1. Aldactone 50 mg p.o. daily. 2. Toprol XL 100 mg p.o. b.i.d. 3. Tylenol 650 q.4 p.r.n. ALLERGIES: ASPIRIN, IODINATED CONTRAST, NSAIDS. FAMILY HISTORY: History of CAD, dementia, brain aneurysm. SOCIAL HISTORY: No history of smoking. No history of alcohol intake. REVIEW OF SYSTEMS: ENT: No diminished hearing or diminished vision. CARDIOVASCULAR SYSTEM: No angina. RESPIRATORY SYSTEM: No cough or hemoptysis. GI: As mentioned earlier. : No dysuria. NERVOUS SYSTEM: No numbness or weakness. ALLERGY/IMMUNOLOGY: No asthma or hayfever. MUSCULOSKELETAL: As mentioned earlier. HEMATOLOGY/ONCOLOGY: No history of anemia. ENDOCRINE: No history of diabetes or hypothyroidism. CONSTITUTIONAL: As mentioned earlier. DERMATOLOGY: Negative. RHEUMATOLOGY: Negative. PSYCHIATRY: As mentioned earlier. PHYSICAL EXAMINATION: The patient is alert and oriented x3. Pulse 58, blood pressure 119/84, respirations 16, temperature 98.2, pulse ox 97% on room air. HEENT: Conjunctivae normal. NECK: No jugular venous distention. CARDIOVASCULAR: S1, S2 muffled. RESPIRATORY: Breath sounds diminished at the bases. Scattered rhonchi. No crackles. ABDOMEN: Soft, minimal discomfort on the right lower part and status post incision and drainage recently which has mostly healed. The dressing over the lower abdominal part is soft with brownish fluid. There was no guarding or rigidity. No mass palpable. Bowel sounds present. No ascites. LEGS: No edema, no swelling. NERVOUS SYSTEM: Higher function as mentioned earlier. Moves all 4 limbs. No focal motor or sensory deficits. LYMPHATICS: No lymphadenopathy of the neck, axillae or groin. SKIN: No ulcer, rash or bleeding. JOINTS: No active deforming arthropathy. LABS: WBC 6, hemoglobin 10.7. Sodium 137, potassium 4.5. CO2 is 14. ASSESSMENT: 1. Large subcutaneous fluid collection in the lower anterior abdominal wall, possibly seroma. Rule out abscess or infection. 2. Morbid obesity. 3. Recent acute incarcerated abdominal ventral hernia with small bowel and repair. 4. Congestive heart failure with chronic diastolic dysfunction, ejection fraction 65% to 70%. 5. Chronic cor pulmonale. 6. Severe pulmonary hypertension. 7. Hypertension. 8. Moderate mitral regurgitation, severe tricuspid disease, mitral prolapse, nonrheumatic. 9. Gastroesophageal reflux disease. 10.Hyperlipidemia. 11.History of hypertension. 12.History of degenerative joint disease. 13.History of chronic diverticulosis. 14.Obesity with body mass index of 58.6. 15.Anemia, normocytic anemia of chronic disease. 16.Decreased CO2. RECOMMENDATION: This 68-year-old woman who presented with multiple medical issues, at this time I recommend to continue current medications, continue symptomatic treatment, continue with broad-spectrum IV antibiotics. Otherwise I would also recommend cultures. Resume the home medications. Continue with Lasix. Also recommend a chest x-ray to evaluate for any evidence of fluid overload and continue to monitor. Further recommendations to follow. Closely follow with Surgery. See orders for details. Repeat labs will be ordered. MMODL / IJN: [id number] /
[2019-03-20 07:29] LABS: INR 1.2 (<1.2); Prothrombin Time 12.5 sec (9.0-12.0)
[2019-03-20] MEDS: PANTOPRAZOLE 40 MG/10 ML VIAL IV SCH (08:56)
[2019-03-20 09:42] VITALS: BMI 58.6
--- NOTE | 2019-03-20 11:20 | P.PN ---
<Devora Grant Aby - Last Filed: 03/20/19 11:12> Subjective Progress Note Date: 03/20/19 CHIEF COMPLAINT: Surgical site infection HISTORY OF PRESENT ILLNESS: Patient examined at the bedside. She reports mild abdominal discomfort. She continues to have brown drainage from her abdominal incision. Denies nausea or vomiting. Vital signs are stable. She is afebrile. PHYSICAL EXAM: VITALS: Reviewed CONSTITUTIONAL: Well developed and in no acute distress. EYES: Conjuctivae without sclera icterus. Pupils are equally round and reactive to light. Extraocular movements grossly intact. HEAD, EARS, NOSE, THROAT: Moist buccal mucosa. Head is atraumatic, normo cephalic. Hears conversational speech. No nasal drainage. NECK: Supple. No JV distention. RESPIRATORY: Non-labored respirations and equal bilateral excursions. CARDIOVASCULAR: Palpable 2+ radial pulses. ABDOMEN: Soft. Non-tender. Nondistended. Protuberant pannus. Small amount of brown/sanguinous drainage at midline incision site. LYMPH: No neck lymphadenopathy. No axillary lymphadenopathy. MUSCULOSKELETAL: Nail and fingers with good capillary refill. SKIN: Warm and well perfused with good skin turgor. NEUROLOGIC: Cranial nerves I through XII grossly intact. Sensation upper and extremities intact. No focal or lateralizing signs. PSYCH: Appropriate affect. Alert and oriented to person, place and time. Displays appropriate insight. ASSESSMENT: 1. Large subcutaneous abdominal wall fluid collection 2. Anasarca 3. Dilated congestive cardiomyopathy 4. Super morbid obesity, BMI 58.6 5. Inadequate protein intake PLAN: Patient scheduled for drainage of fluid collection with drain placement today per IR Continue antibiotics. Await culture results from fluid drainage. Advance diet this afternoon after IR drainage Nurse practitioner note has been reviewed by physician. Signing provider agrees with the documented findings, assessment, and plan of care. Objective - Vital Signs Vital signs: Vital Signs Temp 97.8 F 03/20/19 07:47 Pulse 94 03/20/19 08:00 Resp 18 03/20/19 08:00 BP 118/83 03/20/19 07:47 Pulse Ox 92 L 03/20/19 07:47 Intake & Output 03/19/19 03/20/19 03/20/19 18:59 06:59 18:59 Intake Total 540 Balance 540 Weight 136.078 kg Intake: Oral 540 Other: Voiding Method Diaper Diaper Diaper # Voids 1 1 - Labs CBC & Chem 7: 03/19/19 11:39 03/19/19 11:39 Labs: Abnormal Lab Results - Last 24 Hours (Table) 03/19/19 03/19/19 03/20/19 Range/Units 11:39 11:39 07:09 RBC 3.57 L (3.80-5.40) m/uL Hgb 10.7 L (11.4-16.0) gm/dL RDW 17.4 H (11.5-15.5) % Lymphocytes # 0.5 L (1.0-4.8) k/uL PT 12.5 H (9.0-12.0) sec INR 1.2 H (<1.2) Chloride 113 H (98-107) mmol/L Carbon Dioxide 14 L (22-30) mmol/L Microbiology - Last 24 Hours (Table) 03/18/19 17:20 Gram Stain - Preliminary Abdomen Wound Culture - Preliminary Gram Neg Bacilli 03/18/19 17:44 Blood Culture - Preliminary Blood No Growth after 24 hours <Toya Monte N - Last Filed: 03/20/19 22:57> Subjective Patient is s/p drainage of fluid collection seroma over 40+mL. Cultures obtained. May need tailor of antibiotics. Objective - Vital Signs Vital signs: Vital Signs Temp 97.4 F L 03/20/19 13:25 Pulse 96 03/20/19 16:15 Resp 17 03/20/19 16:15 BP 165/89 03/20/19 13:25 Pulse Ox 94 L 03/20/19 13:25 Intake & Output 03/20/19 03/20/19 03/21/19 06:59 18:59 06:59 Intake Total 1130 Output Total 45 Balance 1085 Weight 136.078 kg Intake: Intake, IV Titration 450 Amount Ampicillin-Sulbactam 1.5 50 gm In Sodium Chloride 0.9 % 50 ml @ 100 mls/hr IVPB Q8HR DOC Rx#:[id number] Sodium Chloride 0.9% 1, 400 000 ml @ 130 mls/hr IV . Q7H42M DOC Rx#:[id number] Oral 680 Output: Drainage 45 Abdomen 45 Other: Voiding Method Diaper Diaper # Voids 1 3 - Labs CBC & Chem 7: 03/19/19 11:39 03/19/19 11:39 Labs: Abnormal Lab Results - Last 24 Hours (Table) 03/20/19 Range/Units 07:09 PT 12.5 H (9.0-12.0) sec INR 1.2 H (<1.2) Microbiology - Last 24 Hours (Table) 03/20/19 11:30 Gram Stain - Preliminary Aspirate Body Fluid Culture - Preliminary 03/18/19 17:20 Gram Stain - Final Abdomen Wound Culture - Final Klebsiella pneumoniae 03/18/19 17:44 Blood Culture - Preliminary Blood No Growth after 48 hours 03/19/19 11:30 Fungal Culture - Preliminary Abdominal Fluid 03/20/19 11:30 Anaerobic Culture - Preliminary Abdominal Fluid Assessment and Plan (1) Abdominal wall abscess at site of surgical wound Current Visit: Yes Status: Acute Code(s): T81.49XA - INFECTION FOLLOWING A P ROCEDURE, OTHER SURGICAL SITE, INIT SNOMED Code(s): 609732388 (2) History of small bowel obstruction Current Visit: Yes Status: Acute Code(s): Z87.19 - PERSONAL HISTORY OF OTHER DISEASES OF THE DIGESTIVE SYSTEM SNOMED Code(s): 209200485722424 (3) Recurrent right pleural effusion Current Visit: Yes Status: Acute Code(s): J90 - PLEURAL EFFUSION, NOT EL SEWHERE CLASSIFIED SNOMED Code(s): 49431866 (4) Dilated cardiomyopathy Current Visit: Yes Status: Acute Code(s): I42.0 - DILATED CARDIOMYOPATHY SNOMED Code(s): 302030419 (5) Anasarca Current Visit: No Status: Acute Code(s): R60.1 - GENERALIZED EDEMA SNOMED Code(s): 892190620 (6) BMI 50.0-59.9, adult Current Visit: No Status: Acute Code(s): Z68.43 - BODY MASS INDEX (BMI) 50.0-59.9, ADULT SNOMED Code(s): 360831706 (7) Congestive heart failure Current Visit: No Status: Acute Code(s): I50.9 - HEART FAILURE, UNSPECIFIED SNOMED Code(s): 25581139 (8) Incarcerated hernia Current Visit: No Status: Acute Code(s): K46.0 - UNSP ABDOMINAL HERNIA WITH OBSTRUCTION, WITHOUT GANGRENE SNOMED Code(s): 40695557 (9) Morbid obesity due to excess calories Current Visit: No Status: Acute Code(s): E66.01 - MORBID (SEVERE) OBESITY DUE TO EXCESS CALORIES SNOMED Code(s): 828313055 (10) Small bowel obstruction Current Visit: No Status: Acute Code(s): K56.609 - UNSP INTESTNL OBST, UNSP TO PARTIAL VERSUS COMPLETE OBST SNOMED Code(s): 307637450
--- NOTE | 2019-03-20 11:38 | US ---
Ultrasound-guided drainage catheter insertion. DATE OF EXAM: 03/20/2019 CLINICAL HISTORY: Anterior subcutaneous fluid collection requested for drainage catheter insertion The procedure was discussed with the patient. The risks, complications, benefits, and alternatives we re discussed and any questions were answered. Informed consent was obtained. The patient was placed s upine on the ultrasound table and prepped and draped in the usual sterile fashion. All elements of maximal barrier technique were utilized. Under ultrasound guidance, access into the subcutaneous collection was easily achieved utilizing a catheter trocar system following application of local anesthesia. Catheter was placed within the cavity and repeat imaging demonstrated ideal plac ement under real-time and post procedure. Sample sent to pathology for analysis. The patient was stable throughout the procedure and remained stable upon discharge from Department of Radiology. IMPRESSION: Successful subcutaneous fluid collection drainage catheter insertion under ultrasound guidance.
[2019-03-20] MEDS: ENOXAPARIN 40 MG/0.4 ML SYRINGE SQ SCH (11:58)
[2019-03-20] MEDS: SPIRONOLACTONE 25 MG TAB PO SCH (12:02)
[2019-03-20] MEDS: METOPROLOL SUCCINATE (ER) 100 MG TAB.ER.24H PO SCH ×2 (12:02→22:01)
[2019-03-20] MEDS: ACETAMINOPHEN TAB 325 MG TAB PO PRN ×2 (17:57→22:41)
--- NOTE | 2019-03-20 22:09 | PN ---
PROGRESS NOTE DATE OF SERVICE: 03/20/2019 This 68-year-old woman who was admitted with large subcutaneous fluid collection in the lower anterior abdominal wall, had a JESSIKA drain ultrasound replaced by Interventional Radiology. Darkish brownish fluid is being draining at this time. No chest pain. No palpitations. No fever. The wound cultures growing gram-negative bacilli. PHYSICAL EXAM: Alert and oriented x3. The pulse is 96. Blood pressure 160/89, respiration 17, temperature 97.4, pulse ox 94% on room air. HEENT: Conjunctivae normal. NECK: No JVD. CARDIOVASCULAR SYSTEM: S1, S2 muffled. RESPIRATORY SYSTEM: Breath sounds diminished at the bases. No rhonchi. No crackles. ABDOMEN: Soft, obese. Abdominal wall fluid collection present. Drainage present as mentioned earlier. Otherwise, soft, nontender. No guarding. No rigidity. No mass palpable. Legs are no edema. No swelling. LABS: WBC 6, hemoglobin 10.7, and CO2 is 14. Cultures are pending at this time. ASSESSMENT: 1. Large subcutaneous fluid collection in the lower anterior abdominal wall, possibly seroma hematoma, rule out abscess or infection status post JESSIKA drain ultrasound- guided. 2. Morbid obesity. 3. Recent acute incarcerated abdominal wall hernia with small-bowel repair. 4. Congestive heart failure with chronic diastolic dysfunction ejection fraction 65% to 70%. 5. Chronic cor pulmonale. 6. Severe pulmonary hypertension. 7. Hypertension. 8. Moderate mitral regurgitation, severe tricuspid regurgitation, mitral valve prolapse, nonrheumatic. 9. Gastroesophageal reflux disease. 10.Hyperlipidemia. 11.History of hypertension. 12.History of degenerative joint disease. 13.History of chronic diverticulosis. 14.Obesity with body mass index of 58.6. 15.Anemia, normocytic anemia of chronic disease. 16.Decreased CO2. RECOMMENDATIONS AND DISCUSSION: Recommend to continue current medications, monitor, management and symptomatic treatment. Otherwise, at this time, I recommend continue with current medications, continue with symptomatic treatment. Continue with repeat labs ordered. Continue the broad-spectrum IV antibiotics. I would also recommend infectious disease evaluation, gram-negative bacilli grown from the culture. Guarded prognosis. Further recommendations to follow. MMODL / IJN: [id number] /
[2019-03-21] MEDS: AMPICILLIN-SULBACTAM 1.5 GM in SODIUM CHLORIDE 0.9% 50 ML IVPB SCH ×3 (00:45→16:18)
[2019-03-21] MEDS: SODIUM CHLORIDE 0.9% 1,000 ML IV SCH ×2 (01:11→16:18)
[2019-03-21] MEDS: ACETAMINOPHEN TAB 325 MG TAB PO PRN (04:29)
[2019-03-21 07:49] LABS: Potassium 5.3 mmol/L (3.5-5.1)
[2019-03-21 08:09] LABS: Glucose,Whole Blood 92 mg/dL (75-99)
[2019-03-21] MEDS: PANTOPRAZOLE 40 MG/10 ML VIAL IV SCH (08:09)
[2019-03-21] MEDS: ENOXAPARIN 40 MG/0.4 ML SYRINGE SQ SCH (08:09)
[2019-03-21 08:13] LABS: Anisocytosis Slight; Basophils # (A) 0.1 k/uL (0-0.2); Basophils % (A) 1 %; Eosinophils # (A) 0.1 k/uL (0-0.7); Eosinophils % (A) 2 %; HCT 36.8 % (34.0-46.0); HGB 11.3 gm/dL (11.4-16.0); Hypochromasia Marked; Lymphocytes # (A) 0.7 k/uL (1.0-4.8); Lymphocytes % (A) 12 %; MCH 29.9 pg (25.0-35.0); MCHC 30.7 g/dL (31.0-37.0); MCV 97.4 fL (80.0-100.0); Macrocytosis Slight; Mean Platelet Volume 9.6; Monocytes # (A) 0.6 k/uL (0-1.0); Monocytes % (A) 10 %; Neutrophils # (A) 4.3 k/uL (1.3-7.7); Neutrophils % (A) 72 %; Platelet Count 381 k/uL (150-450); RBC 3.78 m/uL (3.80-5.40); RDW 17.6 % (11.5-15.5); WBC 5.9 k/uL (3.8-10.6)
[2019-03-21] MEDS: SPIRONOLACTONE 25 MG TAB PO SCH (10:59)
[2019-03-21] MEDS: METOPROLOL SUCCINATE (ER) 100 MG TAB.ER.24H PO SCH ×2 (10:59→20:53)
--- NOTE | 2019-03-21 11:13 | P.PN ---
<Devora Grant A - Last Filed: 03/21/19 11:08> Subjective Progress Note Date: 03/21/19 CHIEF COMPLAINT: Surgical site infection HISTORY OF PRESENT ILLNESS: Patient examined at the bedside. She underwent drainage of subcutaneous fluid collection with drainage catheter insertion. Cultures are pending. Culture from abdomen completed on 03/18/19 are positive for Klebsiella. Infectious disease has been consulted. She denies abdominal pain this morning. She reports being tired and did not sleep well last night. PHYSICAL EXAM: VITALS: Reviewed CONSTITUTIONAL: Well developed and in no acute distress. EYES: Conjuctivae without sclera icterus. Pupils are equally round and reactive to light. Extraocular movements grossly intact. HEAD, EARS, NOSE, THROAT: Moist buccal mucosa. Head is atraumatic, normocephalic. Hears conversational speech. No nasal drainage. NECK: Supple. No JV distention. RESPIRATORY: Non-labored respirations and equal bilateral excursions. CARDIOVASCULAR: Palpable 2+ radial pulses. ABDOMEN: Soft. Non-tender. Nondistended. Protuberant pannus. Drainage catheter with brown/sanguinous drainage. LYMPH: No neck lymphadenopathy. No axillary lymphadenopathy. MUSCULOSKELETAL: Nail and fingers with good capillary refill. SKIN: Warm and well perfused with good skin turgor. NEUROLOGIC: Cranial nerves I through XII grossly intact. Sensation upper and extremities intact. No focal or lateralizing signs. PSYCH: Appropriate affect. Alert and oriented to person, place and time. Displays appropriate insight. ASSESSMENT: 1. Large subcutaneous abdominal wall fluid collection 2. Anasarca 3. Dilated congestive cardiomyopathy 4. Super morbid obesity, BMI 58.6 5. Inadequate protein intake PLAN: Continue diet as tolerated Increase activity as tolerated. PT/OT on consult Continue antibiotics. Infectious disease on consult. Await culture results from fluid drainage. Nurse practitioner note has been reviewed by physician. Signing provider agrees with the documented findings, assessment, and plan of care. Objective - Vital Signs Vital signs: Vital Signs Temp 97.6 F 03/21/19 07:20 Pulse 99 03/21/19 11:00 Resp 15 03/21/19 07:20 BP 110/70 03/21/19 11:00 Pulse Ox 96 03/21/19 07:20 Intake & Output 03/20/19 03/21/19 03/21/19 18:59 06:59 18:59 Intake Total 1130 Output Total 45 Balance 1085 Weight 136.078 kg Intake: Intake, IV Titration 450 Amount Ampicillin-Sulbactam 1.5 50 gm In Sodium Chloride 0.9 % 50 ml @ 100 mls/hr IVPB Q8HR [facility] Rx#:[id number] Sodium Chloride 0.9% 1, 400 000 ml @ 60 mls/hr IV . [id number] DOC Rx#:[id number] Oral 680 Output: Drainage 45 Abdomen 45 Other: Voiding Method Diaper Diaper # Voids 3 2 - Labs CBC & Chem 7: 03/21/19 07:08 03/21/19 07:08 Labs: Abnormal Lab Results - Last 24 Hours (Table) 03/21/19 03/21/19 Range/Units 07:08 07:08 RBC 3.78 L (3.80-5.40) m/uL Hgb 11.3 L (11.4-16.0) gm/dL MCHC 30.7 L (31.0-37.0) g/dL RDW 17.6 H (11.5-15.5) % Lymphocytes # 0.7 L (1.0-4.8) k/uL Sodium 136 L (137-145) mmol/L Potassium 5.3 H (3.5-5.1) mmol/L Chloride 109 H (98-107) mmol/L Carbon Dioxide 17 L (22-30) mmol/L BUN 20 H (7-17) mg/dL Microbiology - Last 24 Hours (Table) 03/20/19 11:30 Gram Stain - Preliminary Aspirate Body Fluid Culture - Preliminary 03/18/19 17:20 Gram Stain - Final Abdomen Wound Culture - Final Klebsiella pneumoniae 03/18/19 17:44 Blood Culture - Preliminary Blood No Growth after 48 hours 03/19/19 11:30 Fungal Culture - Preliminary Abdominal Fluid 03/20/19 11:30 Anaerobic Culture - Preliminary Abdominal Fluid <Toya Monte N - Last Filed: 03/22/19 08:27> Subjective Notify the cultures grew Klebsiella. Otherwise, management per infectious disease. No additional surgical intervention. Continue drain likely upon discharge Objective - Vital Signs Vital signs: Vital Signs Temp 98.0 F 03/22/19 00:51 Pulse 79 03/22/19 01:37 Resp 16 03/22/19 03:26 BP 114/69 03/22/19 00:51 Pulse Ox 97 03/22/19 00:51 Intake & Output 03/21/19 03/22/19 03/22/19 18:59 06:59 18:59 Output Total 350 Balance -350 Output: Urine 350 Other: Voiding Method Diaper - Labs CBC & Chem 7: 03/22/19 05:53 03/22/19 05:53 Labs: Abnormal Lab Results - Last 24 Hours (Table) 03/22/19 03/22/19 Range/Units 05:53 05:53 Hgb 11.3 L (11.4-16.0) gm/dL MCHC 30.8 L (31.0-37.0) g/dL RDW 17.9 H (11.5-15.5) % Lymphocytes # 0.7 L (1.0-4.8) k/uL Sodium 136 L (137-145) mmol/L Chloride 109 H (98-107) mmol/L Carbon Dioxide 17 L (22-30) mmol/L BUN 25 H (7-17) mg/dL Microbiology - Last 24 Hours (Table) 03/18/19 17:44 Blood Culture - Preliminary Blood No Growth after 72 hours Assessment and Plan (1) Abdominal wall abscess at site of surgical wound Current Visit: Yes Status: Acute Code(s): T81.49XA - INFECTION FOLLOWING A PROCEDURE, OTHER SURGICAL SITE, INIT SNOMED Code(s): 604028589 (2) History of small bowel obstruction Current Visit: Yes Status: Acute Code(s): Z87.19 - PERSONAL HISTORY OF OTHER DISEASES OF THE DIGESTIVE SYSTEM SNOMED Code(s): 861826772052858 (3) Recurrent right pleural effusion Current Visit: Yes Status: Acute Code(s): J90 - PLEURAL EFFUSION, NOT ELSEWHERE CLASSIFIED SNOMED Code(s): 41633869 (4) Dilated cardiomyopathy Current Visit: Yes Status: Acute Code(s): I42.0 - DILATED CARDIOMYOPATHY SNOMED Code(s): 685027711 (5) Anasarca Current Visit: No Status: Acute Code(s): R60.1 - GENERALIZED EDEMA SNOMED Code(s): 750098588 (6) BMI 50.0-59.9, adult Current Visit: No Status: Acute Code(s): Z68.43 - BODY MASS INDEX (BMI) 50.0-59.9, ADULT SNOMED Code(s): 277122762 (7) Congestive heart failure Current Visit: No Status: Acute Code(s): I50.9 - HEART FAILURE, UNSPECIFIED SNOMED Code(s): 85950851 (8) Incarcerated hernia Current Visit: No Status: Acute Code(s): K46.0 - UNSP ABDOMINAL HERNIA WITH OBSTRUCTION, WITHOUT GANGRENE SNOMED Code(s): 36265195 (9) Morbid obesity due to excess calories Current Visit: No Status: Acute Code(s): E66.01 - MORBID (SEVERE) OBESITY DUE TO EXCESS CALORIES SNOMED Code(s): 310860074 (10) Small bowel obstruction Current Visit: No Status: Acute Code(s): K56.609 - UNSP INTESTNL OBST, UNSP TO PARTIAL VERSUS COMPLETE OBST SNOMED Code(s): 460018647
[2019-03-21 11:35] LABS: Glucose,Whole Blood 94 mg/dL (75-99)
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
[2019-03-21 17:01] LABS: Glucose,Whole Blood 95 mg/dL (75-99)
--- NOTE | 2019-03-21 21:12 | PN ---
PROGRESS NOTE DATE OF SERVICE: 03/21/2019 This 68-year-old woman who was admitted with a large subcutaneous fluid collection is also having possible seroma hematoma. The patient had a JESSIKA drain yesterday. The patient is on broad-spectrum IV antibiotics. Infectious Disease, Dr. Lassiter, is seeing the patient and the cultures showing possible Klebsiella pneumonia. The patient is on Rocephin 2 g and med line for IV antibiotics for at least 2-3 weeks is being plan at this time. No chest pain, no palpitation. EXAM: Alert and oriented x3. Pulse 93, blood pressure 131/87, respiration 16, temp 97.2, pulse ox 98% on room air. HEENT: Conjunctivae normal. Oral mucosa moist. NECK: No jugular venous distention. No lymph node enlargement. CARDIOVASCULAR: S1, S2. RESPIRATORY: Diminished breath sounds at the bases. No rhonchi, no crackles. ABDOMEN: Soft, obese. LEGS: No edema, no swelling. NERVOUS SYSTEM: No focal deficits. LAB STUDIES: WBC 5.2, hemoglobin 11.2, sodium 130, potassium 5.3. ASSESSMENT: 1. Large subcutaneous fluid collection of low anterior abdominal wall with possible seroma hematoma with Klebsiella pneumonia, status post JESSIKA drain ultrasound-guided. 2. Morbid obesity. 3. Recent incarcerated abdominal wall hernia repair with small bowel repair. 4. Congestive heart failure with chronic diastolic dysfunction, ejection fraction 65- 70%. 5. Chronic cor pulmonale. 6. Severe pulmonary hypertension. 7. Hypertension. 8. Moderate mitral regurgitation, severe tricuspid regurgitation, mitral prolapse, nonrheumatic. 9. Gastroesophageal reflux disease. 10.Hyperlipidemia. 11.History of hypertension. 12.History of degenerative joint disease. 13.History of chronic diverticulosis. 14.Obesity with body mass index of 58.6. 15.Anemia, normocytic anemia of chronic disease. 16.Decreased CO2. DISCUSSION AND RECOMMENDATIONS: Continue current medications, continue to monitor, continue symptomatic treatment. Otherwise, at this time I recommend continue with broad-spectrum IV antibiotics as mentioned earlier. Closely follow with Surgery. PICC line insertion for prolonged antibiotic treatment. Further recommendations to follow. MMODL / IJN: [id number] /
[2019-03-22] MEDS: ACETAMINOPHEN TAB 325 MG TAB PO PRN ×2 (01:31→22:24)
[2019-03-22 06:35] LABS: Calcium 8.9 mg/dL (8.4-10.2); Potassium 4.7 mmol/L (3.5-5.1)
[2019-03-22 07:06] LABS: Anisocytosis Slight; Basophils % (A) 1 %; Eosinophils # (A) 0.2 k/uL (0-0.7); Eosinophils % (A) 2 %; HCT 36.8 % (34.0-46.0); HGB 11.3 gm/dL (11.4-16.0); Hypochromasia Slight; Lymphocytes # (A) 0.7 k/uL (1.0-4.8); Lymphocytes % (A) 10 %; MCH 29.4 pg (25.0-35.0); MCHC 30.8 g/dL (31.0-37.0); MCV 95.5 fL (80.0-100.0); Macrocytosis Slight; Mean Platelet Volume 9.4; Monocytes # (A) 0.6 k/uL (0-1.0); Monocytes % (A) 9 %; Neutrophils # (A) 5.2 k/uL (1.3-7.7); Neutrophils % (A) 77 %; Platelet Count 354 k/uL (150-450); RBC 3.85 m/uL (3.80-5.40); RDW 17.9 % (11.5-15.5); WBC 6.7 k/uL (3.8-10.6)
[2019-03-22 07:23] LABS: Large Platelets Present
[2019-03-22] MEDS: ENOXAPARIN 40 MG/0.4 ML SYRINGE SQ SCH (08:15)
[2019-03-22] MEDS: SPIRONOLACTONE 25 MG TAB PO SCH (08:16)
[2019-03-22] MEDS: METOPROLOL SUCCINATE (ER) 100 MG TAB.ER.24H PO SCH ×2 (08:16→19:42)
[2019-03-22] MEDS: PANTOPRAZOLE 40 MG TABLET PO SCH (08:16)
[2019-03-22] MEDS: SODIUM CHLORIDE 0.9% 1,000 ML IV SCH ×2 (10:33→19:45)
--- NOTE | 2019-03-22 11:53 | PN ---
PROGRESS NOTE DATE OF SERVICE: 03/22/2019 REASON FOR FOLLOWUP: Infected abdominal wall seroma. INTERVAL HISTORY: The patient is currently afebrile. Patient is breathing comfortably. Patient denies having any chest pain. No shortness of breath or cough. There has been generalized weakness. Denies having any worsening abdominal pain. No nausea, no vomiting and no diarrhea. PHYSICAL EXAMINATION: Blood pressure 113/82 with a pulse of 99, temperature 97.4. She is 92% on room air. General description is an elderly female, lying in bed in no distress. RESPIRATORY SYSTEM: Unlabored breathing, clear to auscultation anteriorly. HEART: S1, S2. Regular rate and rhythm. ABDOMEN: Soft, no tenderness. The drainage catheter mostly with dark fluid, nonpurulent. LABS: Hemoglobin 11.2, white count of 6.7, creatinine 0.94. DIAGNOSTIC IMPRESSION AND PLAN: Patient with abdominal wall seroma/hematoma with question of possible infected culture with Klebsiella. Patient is covered with Rocephin 2 g daily to continue. Will monitor clinical course closely. Continue supportive care. MMODL / IJN: [id number] /
--- NOTE | 2019-03-22 22:13 | PN ---
PROGRESS NOTE DATE OF SERVICE: 03/22/2019 This 68-year-old woman was admitted with large subcutaneous collection after surgery. She has a JESSIKA drain at this time. The culture showed Klebsiella pneumonia and as well as current bacterium strain. The patient is on broad-spectrum IV antibiotics. Dr. Lassiter is following the patient closely. No chest pain. No palpitations. No fever. EXAM: Alert and oriented x3. The pulse is 92, blood pressure 121/87, respirations 16, temperature 98 degrees, pulse ox 93% on room air. HEENT: Conjunctivae normal. Oral mucosa moist. NECK: No jugular venous distention. No lymph node enlargement. CARDIOVASCULAR: S1, S2. RESPIRATORY: Diminished breath sounds at the bases. A few scattered rhonchi and crackles. ABDOMEN: Soft. Abdominal wall swelling present. LEGS: No edema, no swelling. NERVOUS SYSTEM: No focal deficits. LABS: WBC 6.2, hemoglobin 11.3. ASSESSMENT: 1. Subcutaneous fluid collection of low anterior abdominal wall with possible seroma hematoma with infected hematoma with Klebsiella pneumonia, status post JESSIKA drain ultrasound-guided. 2. Morbid obesity. 3. Recent incarcerated abdominal hernia repair with small bowel repair. 4. Congestive heart failure with chronic diastolic dysfunction, ejection fraction 65- 70%. 5. Chronic cor pulmonale. 6. History of pulmonary hypertension. 7. Hypertension. 8. Moderate mitral regurgitation, severe tricuspid regurgitation, mitral valve prolapse but nonrheumatic. 9. Gastroesophageal reflux disease. 10.Hyperlipidemia. 11.History of hypertension. 12.History of degenerative joint disease. 13.History of colonic diverticulosis. 14.Obesity with body mass index of 58.6. 15.Anemia, normocytic anemia of chronic disease. 16.Decreased CO2. RECOMMENDATIONS AND DISCUSSION: Recommend to continue current medications, continue symptomatic treatment. Otherwise, at this time I recommend continue the IV antibiotics per Dr. Lassiter. The patient is on IV Rocephin. Closely monitor with Surgery. Further recommendations to follow. MMODL / IJN: [id number] /
[2019-03-23 07:31] LABS: Anisocytosis Slight; Basophils % (A) 1 %; Eosinophils # (A) 0.2 k/uL (0-0.7); Eosinophils % (A) 3 %; HCT 36.7 % (34.0-46.0); HGB 11.4 gm/dL (11.4-16.0); Hypochromasia Moderate; Lymphocytes # (A) 0.7 k/uL (1.0-4.8); Lymphocytes % (A) 11 %; MCH 30.3 pg (25.0-35.0); MCHC 31.2 g/dL (31.0-37.0); MCV 97.2 fL (80.0-100.0); Macrocytosis Slight; Mean Platelet Volume 9.4; Monocytes # (A) 0.5 k/uL (0-1.0); Monocytes % (A) 8 %; Neutrophils # (A) 4.8 k/uL (1.3-7.7); Neutrophils % (A) 76 %; Platelet Count 378 k/uL (150-450); RBC 3.78 m/uL (3.80-5.40); RDW 17.9 % (11.5-15.5); WBC 6.3 k/uL (3.8-10.6)
[2019-03-23 07:41] LABS: Calcium 9.2 mg/dL (8.4-10.2); Potassium 4.9 mmol/L (3.5-5.1)
[2019-03-23] MEDS: ENOXAPARIN 40 MG/0.4 ML SYRINGE SQ SCH (08:37)
[2019-03-23] MEDS: SPIRONOLACTONE 25 MG TAB PO SCH (08:38)
[2019-03-23] MEDS: PANTOPRAZOLE 40 MG TABLET PO SCH (08:38)
[2019-03-23] MEDS: METOPROLOL SUCCINATE (ER) 100 MG TAB.ER.24H PO SCH ×2 (08:38→19:16)
--- NOTE | 2019-03-23 11:34 | P.PN ---
Progress Note - Text Progress Note Date: 03/23/19 Patient's resting comfortably. She is has no complaints of pain. On exam her vital signs are stable. Abdomen soft. She has less drainage in her pigtail drainage catheter bag. Status post drainage of abdominal wall seroma. Patient is stable from a surgical standpoint and may be discharged home per medicine.
[2019-03-23] MEDS: SODIUM CHLORIDE 0.9% 1,000 ML IV SCH (18:56)
--- NOTE | 2019-03-23 19:50 | PN ---
PROGRESS NOTE DATE OF SERVICE: 03/23/2019 REASON FOR FOLLOW UP: Abdominal wall seroma. INTERVAL HISTORY: The patient is currently afebrile. Patient is breathing comfortably. Denies having any chest pain or cough. Still having drainage from her drainage catheter, but no worsening. Denies abdominal pain. No nausea, vomiting or diarrhea. PHYSICAL EXAMINATION: Blood pressure 120/77 with a pulse of 90, temperature 97.5. She is 93% on room air. General description is an elderly female lying in bed in no distress. Respiratory system: Unlabored breathing, clear to auscultation anteriorly. Heart S1, S2. Regular rate and rhythm. Abdomen soft, no tenderness. Extremities: No edema of the feet. LABS: Hemoglobin 11.4, white count 6.2, BUN of 27, creatinine 0.97. The CT-guided drainage fluid showing corynebacterium species which is more likely skin juan. Abdominal culture with Klebsiella pneumonia. DIAGNOSTIC IMPRESSION AND PLAN: Patient with abdominal wall seroma. Clinical suspicion is low for underlying abscess in this patient with no fever or elevated white count and the fluid looks mostly blood- stained. Will discuss with the medical team. Discharge is to home. Will go with p.o. antibiotic. However, for any reason, patient needs to go to the rehab may consider short course of IV Rocephin and monitor clinical course closely. MMODL / IJN: [id number] /
--- NOTE | 2019-03-23 21:18 | PN ---
PROGRESS NOTE DATE OF SERVICE: 03/23/2019 This 68-year-old woman who was admitted with abdominal wall infected hematoma possibly, had a JESSIKA drain. No chest pain. No palpitations. No fever. The culture is showing Klebsiella pneumonia as well as Corynebacterium strain. Multiple consultants including Surgery and Infectious Disease following the patient. No chest pain. No palpitations. No fever. EXAM: Alert and oriented x3. Pulse 88, blood pressure 149/80, respiration 17, temperature 98 degrees, pulse ox 94% on room air. HEENT: Conjunctivae normal. Oral mucosa moist. NECK: No jugular venous distention. No lymph node enlargement. CARDIOVASCULAR: S1, S2. RESPIRATORY: Diminished breath sounds at the bases. Scattered rhonchi and crackles. ABDOMEN: Soft. JESSIKA drain present. Minimal tenderness. LEGS: No edema, no swelling. NERVOUS SYSTEM: No focal deficits. LABS: WBC 6.2, hemoglobin 11.4, sodium 136. ASSESSMENT: 1. Subcutaneous fluid collection over the anterior abdominal wall with possible seroma hematoma with infected wound with Klebsiella pneumonia status post JESSIKA drain, ultrasound-guided. 2. Morbid obesity. 3. Recent incarcerated abdominal hernia repair with small bowel repair. 4. Congestive heart failure with chronic diastolic dysfunction, ejection fraction 65- 70%. 5. Chronic cor pulmonale. 6. History of pulmonary hypertension. 7. Hypertension. 8. Moderate mitral regurgitation, severe tricuspid regurgitation, mitral valve prolapse, nonrheumatic. 9. Gastroesophageal reflux disease. 10.Hyperlipidemia. 11.History of hypertension. 12.History of degenerative joint disease. 13.History of colonic diverticulosis. 14.Obesity with body mass index of 58.6. 15.Anemia, normocytic anemia of chronic disease. 16.Decreased CO2. RECOMMENDATION: Recommend to continue current medication, continue symptomatic treatment. Otherwise, at this time I would recommend continue with broad-spectrum IV antibiotics prolonged IV antibiotics per Infectious Disease. Guarded prognosis. Further recommendations to follow. MMODL / IJN: [id number] /
[2019-03-24] MEDS: ACETAMINOPHEN TAB 325 MG TAB PO PRN ×3 (00:28→21:25)
[2019-03-24 03:19] VITALS: RESP 16
[2019-03-24] MEDS: ENOXAPARIN 40 MG/0.4 ML SYRINGE SQ SCH (07:54)
[2019-03-24] MEDS: PANTOPRAZOLE 40 MG TABLET PO SCH (07:54)
[2019-03-24] MEDS: SPIRONOLACTONE 25 MG TAB PO SCH (08:05)
[2019-03-24] MEDS: METOPROLOL SUCCINATE (ER) 100 MG TAB.ER.24H PO SCH ×2 (08:05→21:23)
[2019-03-24] MEDS: SODIUM CHLORIDE 0.9% 1,000 ML IV SCH (10:58)
--- NOTE | 2019-03-24 11:44 | P.PN ---
Subjective Progress Note Date: 03/24/19 CHIEF COMPLAINT: Surgical site infection HISTORY OF PRESENT ILLNESS: Patient examined at the bedside. She underwent drainage of subcutaneous fluid collection with drainage catheter insertion. She denies abdominal pain this morning. Tolerating diet. Denies nausea or vomiting. Vital signs stable. She is afebrile. PHYSICAL EXAM: VITALS: Reviewed CONSTITUTIONAL: Well developed and in no acute distress. ABDOMEN: Soft. Non-tender. Nondistended. Protuberant pannus. Drainage catheter with brown/sanguinous drainage. SKIN: Warm and well perfused with good skin turgor. PSYCH: Appropriate affect. Alert and oriented to person, place and time. Displays appropriate insight. ASSESSMENT: 1. Large subcutaneous abdominal wall fluid collection 2. Anasarca 3. Dilated congestive cardiomyopathy 4. Super morbid obesity, BMI 58.6 5. Inadequate protein intake PLAN: Continue diet as tolerated Increase activity as tolerated. PT/OT on consult Continue antibiotics. Infectious disease on consult. Discharge per medicine with drainage catheter in place. Patient to follow up outpatient with Dr. Clement. Nurse practitioner note has been reviewed by physician. Signing provider agrees with the documented findings, assessment, and plan of care. Objective - Vital Signs Vital signs: Vital Signs Temp 97.5 F L 03/24/19 07:00 Pulse 76 03/24/19 07:00 Resp 16 03/24/19 07:00 BP 112/72 03/24/19 08:17 Pulse Ox 97 03/24/19 07:00 Intake & Output 03/23/19 03/24/19 03/24/19 18:59 06:59 18:59 Intake Total 236 Output Total 10 10 Balance -10 -10 236 Intake: Oral 236 Output: Drainage 10 10 Abdomen 10 10 Other: Voiding Method Diaper Diaper - Labs CBC & Chem 7: 03/23/19 07:11 03/23/19 07:11 Labs: Microbiology - Last 24 Hours (Table) 03/18/19 17:44 Blood Culture - Preliminary Blood No Growth after 120 hours 03/20/19 11:30 Anaerobic Culture - Preliminary Abdominal Fluid
--- NOTE | 2019-03-24 22:14 | P.PN ---
Progress Note - Text Progress Note Date: 03/24/19 Interval history: This is a 68-year-old patient who follows Dr. Cooper. Her venture capital analyst Dr. SHELL Dawn. Has a rather extensive medical history. Chronic stable medical conditions include GERD, hyperlipidemia, hypertension, Werner arthritis, had a stroke in 2017 left her with a slow speech, diverticulosis. Also has PTSD and depression. Patient also has a history of CHF EF of 65-70%, chronic cor pulmonale, severe secondary pulmonary hypertension and atrial fibrillation. 2 months ago-underwent small bowel resection, repair of strangulated ventral hernia and incarcerated umbilical hernia and partial omentectomy. Now presents with lower abdominal pain and distention. Computed tomography scan showed a large subcutaneous fluid collection on the lower anterior abdominal wall . Drain has been placed. Today-idiopathic chair. Tired. Drain in place. Some lower back pain. No fever no chills.. Review of systems: Was done for constitutional, cardiovascular, GI, pulmonary. relevant finding as above Active Medications Acetaminophen (Tylenol Tab) 650 mg PO Q4H PRN PRN Reason: Pain Last Admin: 03/24/19 21:25 Dose: 650 mg Documented by: Enoxaparin Sodium (Lovenox) 40 mg SQ DAILY [facility] Last Admin: 03/24/19 07:54 Dose: 40 mg Documented by: Sodium Chloride (Saline 0.9%) 1,000 mls @ 60 mls/hr IV .[id number] [facility] Last Admin: 03/24/19 10:58 Dose: Not Given Documented by: Ceftriaxone Sodium 2 gm/ (Sodium Chloride) 50 mls @ 100 mls/hr IVPB Q24HR [facility] Last Admin: 03/24/19 07:54 Dose: 100 mls/hr Documented by: Metoprolol Succinate (Toprol Xl) 100 mg PO BID [facility] Last Admin: 03/24/19 21:23 Dose: 100 mg Documented by: Naloxone HCl (Narcan) 0.2 mg IV Q2M PRN PRN Reason: Opioid Reversal Pantoprazole Sodium (Protonix) 40 mg PO AC-BRKFST [facility] Last Admin: 03/24/19 07:54 Dose: 40 mg Documented by: Spironolactone (Aldactone) 50 mg PO DAILY [facility] Last Admin: 03/24/19 08:05 Dose: 50 mg Documented by: Physical examination: VITAL SIGNS: 97.7, 87, 16, 126/79, 90% room air GENERAL: Sitting up in a chair, comfortable EYES: Pupils equal. Conjunctiva pale HEENT: External appearance of nose and ears normal, oral cavity grossly normal. NECK: Short and thick, JVD unable to assess; masses not palpable. HEART: Heart sounds muffled; edema present. LUNGS: Respiratory rate normal; distant breath sounds. ABDOMEN: Soft, tender, JESSIKA drain in place,, liver spleen not palpable, no masses palpable. Bowel sounds present PSYCH: Alert and oriented x3; mood and affect normal. INVESTIGATIONS, reviewed in the clinical context: White count 6.3 hemoglobin 11.4 potassium 4.9 creatinine 0.97 Previous testing Computed tomography scan of the abdomen-fluid collection of lower anterior abdominal wall Wound culture-Corynebacterium striatum, Klebsiella pneumoniae, Assessment: -Acute lower abdominal wall fluid collection, JESSIKA drain in place, with cultures growing Pneumoniae No Corynebacterium Stratum. -Status post-incarcerated abdominal ventral wall hernia with small bowel, leading to repair of the same,-2 months ago -Chronic congestive heart failure from diastolic dysfunction EF 65-70% -Chronic cor pulmonale -Severe secondary pulmonary hypertension from CHF -Hypertensive heart disease -Moderate mitral regurgitation, severe tricuspid regurgitation, mitral valve prolapse, nontraumatic t -GERD -Hyperlipidemia -Essential hypertension -Primary osteoarthritis -Chronic diverticulosis -Morbid obesity BMI 54.5 -Possibly obesity hypoventilation syndrome Plan: Patient currently in IV ceftriaxone. Due to prophylaxis. Continue current medication treatment plan. Oral intake improving though patient does not have much of an appetite.
--- NOTE | 2019-03-24 23:17 | PN ---
PROGRESS NOTE DATE OF SERVICE: 03/24/2019 REASON FOR FOLLOWUP: Abdominal wall seroma. INTERVAL HISTORY: The patient is currently afebrile. Patient has been complaining of not feeling well. Denies having any chest pain, shortness of breath or cough. No significant abdominal pain. No nausea, vomiting or diarrhea. PHYSICAL EXAMINATION: Blood pressure 126/79 with a pulse of 87, temperature 97.7. She is 90% on room air. General description is an elderly female in the bed in no distress. Respiratory system: Unlabored breathing, clear to auscultation anteriorly. Heart S1, S2. Regular rate and rhythm. ABDOMEN: Soft. Drainage catheter to help drain blood-stained dark fluid. LABS: Hemoglobin 11.4, white count 6.3, creatinine 0.97. Abdominal culture with chronic bacteria. DIAGNOSTIC IMPRESSION AND PLAN: Patient admitted to the hospital with bleeding from upper abdominal incision in this patient who did have recent surgery for a hernia with evidence of fluid collection that has been drained, superficial culture positive for Klebsiella, is mostly chronic bacteria, more likely skin juan. The patient is currently on Rocephin that she will continue for about 2 weeks and close outpatient followup. Continue supportive care. MMODL / IJN: [id number] /
[2019-03-25] MEDS: ACETAMINOPHEN TAB 325 MG TAB PO PRN (07:00)
[2019-03-25] MEDS: PANTOPRAZOLE 40 MG TABLET PO SCH (07:03)
[2019-03-25] MEDS: SPIRONOLACTONE 25 MG TAB PO SCH (07:17)
[2019-03-25] MEDS: METOPROLOL SUCCINATE (ER) 100 MG TAB.ER.24H PO SCH (07:17)
[2019-03-25] MEDS: ENOXAPARIN 40 MG/0.4 ML SYRINGE SQ SCH (07:18)
--- NOTE | 2019-03-25 12:54 | P.PN ---
Subjective Progress Note Date: 03/25/19 CHIEF COMPLAINT: Surgical site infection HISTORY OF PRESENT ILLNESS: Patient examined at the bedside. She underwent drainage of subcutaneous fluid collection with drainage catheter insertion. She denies abdominal pain this morning. Tolerating diet. Denies nausea or vomiting. Vital signs stable. She is afebrile. PHYSICAL EXAM: VITALS: Reviewed CONSTITUTIONAL: Well developed and in no acute distress. ABDOMEN: Soft. Non-tender. Nondistended. Protuberant pannus. Drainage catheter with brown/sanguinous drainage. SKIN: Warm and well perfused with good skin turgor. PSYCH: Appropriate affect. Alert and oriented to person, place and time. Displays appropriate insight. ASSESSMENT: 1. Large subcutaneous abdominal wall fluid collection 2. Anasarca 3. Dilated congestive cardiomyopathy 4. Super morbid obesity, BMI 58.6 5. Inadequate protein intake PLAN: Continue diet as tolerated Increase activity as tolerated. PT/OT on consult Continue antibiotics. Infectious disease on consult. Discharge per medicine with drainage catheter in place. Patient to follow up outpatient with Dr. Clement. Nurse practitioner note has been reviewed by physician. Signing provider agrees with the documented findings, assessment, and plan of care. Objective - Vital Signs Vital signs: Vital Signs Temp 98.2 F 03/25/19 07:00 Pulse 73 03/25/19 07:00 Resp 16 03/25/19 07:00 BP 115/84 03/25/19 07:00 Pulse Ox 91 L 03/25/19 07:00 Intake & Output 03/24/19 03/25/19 03/25/19 18:59 06:59 18:59 Intake Total 416 Output Total 450 Balance 416 -450 Weight 136.078 kg Intake: Oral 416 Output: Urine 450 Other: Voiding Method Diaper Diaper - Labs CBC & Chem 7: 03/23/19 07:11 03/23/19 07:11 Labs: Microbiology - Last 24 Hours (Table) 03/18/19 17:44 Blood Culture - Final Blood No Growth after 144 hours 03/20/19 11:30 Anaerobic Culture - Final Abdominal Fluid
--- NOTE | 2019-03-25 14:26 | P.DS ---
Providers Date of admission: 03/20/19 15:15 Expected date of discharge: 03/25/19 Attending physician: Hector Felipe Consults: 03/18/19 18:12 Consult Physician Urgent Consulting Provider: Oren Clement Consult Reason/Comments: medical care Do you want consulting provider notified?: Yes 03/20/19 18:48 Consult Physician Routine Consulting Provider: Darian Lassiter Consult Reason/Comments: ABD WALL infection? Do you want consulting provider notified?: Yes Primary care physician: Elieserkeeley Cooper [facility] Course: Regarding course: This is a 68-year-old patient who follows Dr. Cooper. Her radiation technician Dr. SHELL Dawn. Has a rather extensive medical history. Chronic stable medical conditions include GERD, hyperlipidemia, hypertension, osteoarthritis, had a stroke in 2017 left her with a slow speech, diverticulosis. Also has PTSD and depression. CHF EF of 65-70%, chronic cor pulmonale, severe secondary pulmonary hypertension and atrial fibrillation. 2 months ago-underwent small bowel resection, repair of strangulated ventral hernia and incarcerated umbilical hernia and partial omentectomy. Now presents with lower abdominal pain and distention. Computed tomography scan showed a large subcutaneous fluid collection on the lower anterior abdominal wall . Drain has been placed. Cultures were positive for Corynebacterium stratum and Klebsiella pneumoniae. Treat with IV ceftriaxone. Today-. Drain remains in place. We will complete 2 more weeks of IV antibiotics. Has been cleared both by ID and general surgery. Care was discussed with the patient. Appetite is slowly improving. Did have a bowel movement. Pain is controlled. Discussion and discharge planning more than 35 minutes Physical examination: VITAL SIGNS: 98.2, 73, 16, 11 5/84, 91% GENERAL: Sitting up in a chair, comfortable EYES: Pupils equal. Conjunctiva pale HEENT: External appearance of nose and ears normal, oral cavity grossly normal. NECK: Short and thick, JVD unable to assess; masses not palpable. HEART: Heart sounds muffled; edema present. LUNGS: Respiratory rate normal; distant breath sounds. ABDOMEN: Soft, tender, JESSIKA drain in place,, liver spleen not palpable, no masses palpable. Bowel sounds present PSYCH: Alert and oriented x3; mood and affect normal. INVESTIGATIONS, reviewed in the clinical context: White count 6.3 hemoglobin 11.4 potassium 4.9 creatinine 0.97 Previous testing Computed tomography scan of the abdomen-fluid collection of lower anterior abdominal wall Wound culture-Corynebacterium striatum, Klebsiella pneumoniae, Assessment: -Acute lower abdominal wall fluid collection, JESSIKA drain in place, with cultures growing Klebsiella Pneumoniae and Corynebacterium Stratum. -Status post-incarcerated abdominal ventral wall hernia with small bowel, leading to repair of the same,-2 months ago -Chronic congestive heart failure from diastolic dysfunction EF 65-70% -Chronic cor pulmonale -Severe secondary pulmonary hypertension from CHF -Hypertensive heart disease -Moderate mitral regurgitation, severe tricuspid regurgitation, mitral valve prolapse, nontraumatic t -GERD -Hyperlipidemia -Essential hypertension -Primary osteoarthritis -Chronic diverticulosis -Morbid obesity BMI 54.5 -Possibly obesity hypoventilation syndrome Disposition: [facility]CF/[facility] Patient Condition at Discharge: Stable Plan - Discharge Summary Discharge Rx Participant: No New Discharge Prescriptions: New cefTRIAXone [Rocephin] 2 gm IVPB Q24HR #14 vial Continue Spironolactone 50 mg PO DAILY Acetaminophen Tab [Tylenol] 650 mg PO Q4H PRN #30 tablet PRN Reason: Pain Metoprolol Succinate (ER) [Toprol XL] 100 mg PO BID Discharge Medication List Spironolactone 50 mg PO DAILY 01/21/19 [History] Acetaminophen Tab [Tylenol] 650 mg PO Q4H PRN #30 tablet 01/30/19 [Rx] Metoprolol Succinate (ER) [Toprol XL] 100 mg PO BID 03/18/19 [History] cefTRIAXone [Rocephin] 2 gm IVPB Q24HR #14 vial 03/25/19 [Rx] Follow up Appointment(s)/Referral(s): Hu Patterson DO [STAFF PHYSICIAN] - 03/26/19 Elieser Cooper DO [Primary Care Provider] - 2 Weeks Darian Lassiter MD [STAFF PHYSICIAN] - 2 Weeks Oren Clement MD [STAFF PHYSICIAN] - 1 Week
[2019-03-25 16:30] VITALS: BP 114/82; PULSE 75; TEMP 98
--- NOTE | 2019-03-25 22:54 | PN ---
PROGRESS NOTE DATE OF SERVICE: 03/25/2019 REASON FOR FOLLOWUP: Abdominal wall seroma, infected. INTERVAL HISTORY: The patient was seen on rounds this morning. The patient has been afebrile. She was breathing comfortably. Still complaining of not feeling well. No chest pain, shortness of breath or cough. No abdominal pain. Overall drainage in the drainage catheter has decreased. PHYSICAL EXAMINATION: Blood pressure 114/82 with a pulse of 75, temperature 98. She is 92% on room air. General description is an elderly female up in the chair in no distress. RESPIRATORY SYSTEM: Unlabored breathing. Clear to auscultation anteriorly. HEART: S1, S2. Regular rate and rhythm. ABDOMEN: Soft. No tenderness. Drainage catheter mostly blood-stained drainage. LABS: Hemoglobin 11.4, white count 6.3, BUN of 27, creatinine 0.97. DIAGNOSTIC IMPRESSION AND PLAN: Patient with abdominal wall seroma, question of infection, as the superficial cultures were positive, though deep culture has been mostly corynebacterium, likely contamination. The patient at this time is covered with Rocephin 2 grams; to continue for about a week or 10 days with close outpatient followup. MMODL / IJN: [id number] /
== END 2019-03-25 17:35 | DRG 863 ==
LOC: EC 17:02 → INTOOBSV 18:12 → 4SSUR 18:12 → OBSVTOIN 03-20 15:15
PROVIDERS: ADMIT Hospitalist; ATTEND Hospitalist
PROC: 0J9830Z Drainage of Abdomen Subcutaneous Tissue and Fascia with Drainage Device, Percutaneous Approach (ICD-10-PCS; principal; 2019-03-20)
PROC: 05HY33Z Insertion of Infusion Device into Upper Vein, Percutaneous Approach (ICD-10-PCS; 2019-03-24 18:50)
DX: T81.41XA Infection following a procedure, superficial incisional surgical site, initial encounter (principal); L02.211 Cutaneous abscess of abdominal wall; I42.0 Dilated cardiomyopathy; Z68.43 Body mass index [BMI] 50.0-59.9, adult; I50.32 Chronic diastolic (congestive) heart failure; E66.01 Morbid (severe) obesity due to excess calories; I27.29 Other secondary pulmonary hypertension; D63.8 Anemia in other chronic diseases classified elsewhere; L52 Erythema nodosum; I11.0 Hypertensive heart disease with heart failure; B96.1 Klebsiella pneumoniae [K. pneumoniae] as the cause of diseases classified elsewhere; I69.928 Other speech and language deficits following unspecified cerebrovascular disease; R40.2362 Coma scale, best motor response, obeys commands, at arrival to emergency department; R40.2142 Coma scale, eyes open, spontaneous, at arrival to emergency department; R40.2252 Coma scale, best verbal response, oriented, at arrival to emergency department; I08.1 Rheumatic disorders of both mitral and tricuspid valves; E11.9 Type 2 diabetes mellitus without complications; K21.9 Gastro-esophageal reflux disease without esophagitis; E78.5 Hyperlipidemia, unspecified; F43.10 Post-traumatic stress disorder, unspecified; F32.9 Major depressive disorder, single episode, unspecified; M54.41 Lumbago with sciatica, right side; G89.29 Other chronic pain; M19.91 Primary osteoarthritis, unspecified site; K57.30 Diverticulosis of large intestine without perforation or abscess without bleeding; H18.602 Keratoconus, unspecified, left eye; M25.569 Pain in unspecified knee; Z79.899 Other long term (current) drug therapy; Z71.3 Dietary counseling and surveillance; Z86.79 Personal history of other diseases of the circulatory system; Z87.442 Personal history of urinary calculi; Z87.19 Personal history of other diseases of the digestive system; Z86.010 Personal history of colon polyps; Z95.0 Presence of cardiac pacemaker; Z96.652 Presence of left artificial knee joint; Z88.6 Allergy status to analgesic agent; Z91.041 Radiographic dye allergy status; Y83.8 Other surgical procedures as the cause of abnormal reaction of the patient, or of later complication, without mention of misadventure at the time of the procedure; Y92.039 Unspecified place in apartment as the place of occurrence of the external cause; W19.XXXA Unspecified fall, initial encounter; Z82.49 Family history of ischemic heart disease and other diseases of the circulatory system
CPT/HCPCS: 10030; 36410; 36415; 74176; 76937; 76942; 80048; 80053; 81001; 83605; 85025; 85610; 85730; 87040; 87070; 87075; 87077; 87102; 87186; 87205; 88108; 88305; 93005; 96365; 99284

== ENCOUNTER 2019-04-01 06:31 | Inpatient (IN) | payer MEDICARE, BC ==
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
[2019-04-01 08:11] LABS: Amorphous Sediment,Urine Few /hpf; Appearance,Urine Turbid (Clear); Bacteria,Urine Occasional /hpf; Bilirubin,Urine Negative (Negative); Blood,Urine Moderate (Negative); Color,Urine Yellow; Glucose,Urine (UA) Negative (Negative); Hyaline Casts,Urine 30 /lpf (0-2); Ketones,Urine Trace (Negative); Leukocyte Esterase,Urine Large (Negative); Mucus,Urine Occasional /hpf; Nitrite,Urine Negative (Negative); PH, Urine 5.5 (5.0-8.0); Protein,Urine 2+ (Negative); RBC,Urine 10 /hpf (0-5); Specific Gravity,Urine 1.022 (1.001-1.035); Squamous Epithelial Cell,Urine 17 /hpf (0-4); Urobilinogen,Urine <2.0 mg/dL (<2.0); WBC,Urine 88 /hpf (0-5)
--- NOTE | 2019-04-01 08:18 | XR ---
EXAMINATION TYPE: XR chest 2V DATE OF EXAM: 04/01/2019 COMPARISON: Prior chest x-ray dated 01/26/2019 HISTORY: Shortness of breath and weakness TECHNIQUE: Frontal and lateral views of the chest are obtained. FINDINGS: The heart remains enlarged, patient is rotated. Generator is in left pectoral region, ther e are leads in the right atrium, right ventricle, coronary sinus. No evident pneumothorax or sizable effusion. Central vascularity appears prominently, the aorta is dense. Right hemidiaphragm remains el evated. Difficult to exclude retrocardiac density. IMPRESSION: Rotated exam, cardiomegaly. Correlate to exclude pulmonary venous hypertension and early interstitial edema, volume overload. Follow-up recommended.
[2019-04-01 08:49] LABS: INR 1.4 (<1.2); Partial Thromboplastin Time 31.5 sec (22.0-30.0); Prothrombin Time 14.4 sec (9.0-12.0)
[2019-04-01 09:04] LABS: Anisocytosis Slight; HCT 39.4 % (34.0-46.0); HGB 12.1 gm/dL (11.4-16.0); Hypochromasia Marked; MCHC 30.8 g/dL (31.0-37.0); MCV 97.4 fL (80.0-100.0); Macrocytosis Slight; Mean Platelet Volume 10.7; Platelet Count 168 k/uL (150-450); Poikilocytosis Moderate; RBC 4.05 m/uL (3.80-5.40); RDW 18.6 % (11.5-15.5)
[2019-04-01 09:09] LABS: Calcium 8.6 mg/dL (8.4-10.2); Magnesium 2.2 mg/dL (1.6-2.3); Potassium 4.8 mmol/L (3.5-5.1); Total Bilirubin 0.8 mg/dL (0.2-1.3); Total Protein 6.1 g/dL (6.3-8.2)
[2019-04-01 09:29] LABS: Eosinophils # (M) 0.11 k/uL (0-0.7); Lymphocytes # (M) 0.54 k/uL (1.0-4.8); Monocytes # (M) 0.97 k/uL (0-1.0); Neutrophils # (M) 9.29 k/uL (1.3-7.7); Neutrophils % (M) 86 %; Nucleated Red Blood Cells 1 /100 WBC (0-0); Total Cells Counted 200; WBC 10.8 k/uL (3.8-10.6)
[2019-04-01 09:31] LABS: Large Platelets Present; Polychromasia Present
[2019-04-01] MEDS ORDERED: FUROSEMIDE 10 MG/ML 4 ML VIAL IV STA (09:56)
[2019-04-01] MEDS ORDERED: NITROGLYCERIN SL TABS 0.4 MG TAB SUBLINGUAL PRN (09:58)
[2019-04-01] MEDS ORDERED: FUROSEMIDE 100 MG in SODIUM CHLORIDE 0.9% 90 ML IV SCH (12:30)
[2019-04-01] MEDS ORDERED: DOBUTamine DRIP 500 MG in DEXTROSE/WATER 1 250ML.BAG IV SCH (12:30)
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
[2019-04-01] MEDS: SODIUM CHLORIDE 0.9% 1,000 ML IV SCH ×2 (14:35→21:19)
[2019-04-01] MEDS ORDERED: traMADol 50 MG TAB PO PRN (15:43)
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
[2019-04-01] MEDS ORDERED: FUROSEMIDE 10 MG/ML 4 ML VIAL IV SCH ×2 (16:00→21:00)
[2019-04-01] MEDS: PANTOPRAZOLE 40 MG/10 ML VIAL IVP SCH (16:59)
[2019-04-01] MEDS: HEPARIN SODIUM,PORCINE 5,000 UNIT/ML 1 ML VIAL SQ SCH (16:59)
[2019-04-01 17:26] LABS: Glucose,Whole Blood 90 mg/dL (75-99)
--- NOTE | 2019-04-01 18:27 | XR ---
EXAMINATION TYPE: XR chest 1V portable DATE OF EXAM: 04/01/2019 COMPARISON: Today HISTORY: Short of breath TECHNIQUE: FINDINGS: There is some mild infiltrate right lower lobe. There is no gross heart failure. Heart is m oderately enlarged. There is a left axillary pacemaker. There is right-sided central venous catheter with the tip in the right atrium. No pneumothorax. IMPRESSION: Cardiomegaly. There is some infiltrate right lower lobe that appears slightly worse than exam this morning. No obvious heart failure.
--- NOTE | 2019-04-01 18:48 | PN ---
see consult report MMODL / IJN: [id number] / MARKELL
[2019-04-01] MEDS: ONDANSETRON 4 MG/2 ML VIAL IVP PRN (19:24)
[2019-04-01] MEDS: DOBUTamine DRIP 500 MG in DEXTROSE/WATER 1 250ML.BAG IV SCH (19:51)
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
[2019-04-01] MEDS: CEFEPIME 2 GM in SODIUM CHLORIDE 0.9% 100 ML IVPB SCH (21:18)
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
[2019-04-02] MEDS: HEPARIN SODIUM,PORCINE 5,000 UNIT/ML 1 ML VIAL SQ SCH ×4 (01:17→23:46)
[2019-04-02 03:05] LABS: Glucose,Whole Blood 91 mg/dL (75-99)
[2019-04-02 04:55] LABS: Anisocytosis Slight; HCT 33.2 % (34.0-46.0); HGB 10.4 gm/dL (11.4-16.0); Hypochromasia Marked; MCH 29.9 pg (25.0-35.0); MCHC 31.3 g/dL (31.0-37.0); MCV 95.7 fL (80.0-100.0); Macrocytosis Slight; Platelet Count 106 k/uL (150-450); Poikilocytosis Moderate; RBC 3.47 m/uL (3.80-5.40); RDW 18.4 % (11.5-15.5); WBC 8.3 k/uL (3.8-10.6)
[2019-04-02 05:13] LABS: Calcium 8.2 mg/dL (8.4-10.2); Potassium 4.4 mmol/L (3.5-5.1)
--- NOTE | 2019-04-02 05:27 | PCN ---
PROCEDURE NOTE PROCEDURE: Placement of right subclavian central line. PREOPERATIVE DIAGNOSIS: Acute congestive heart failure and hypotension requiring Dobutrex. POSTOPERATIVE DIAGNOSIS: Acute congestive heart failure and hypotension requiring Dobutrex. ANESTHESIA USED: 2 mL of 1% lidocaine. PROCEDURE: The patient was placed in a Trendelenburg position, the area below the clavicle and the area posterior to the sternocleidomastoid muscle were prepared in a sterile fashion and drapes were applied. Initially I attempted to cannulate the right internal jugular vein; however, wire would not thread easily through the internal jugular vein after cannulation. Then moved to the right subclavian, using the infraclavicular approach. The right subclavian vein was easily cannulated, and a guidewire was placed. A Cook catheter was inserted over the guidewire, and the guidewire was removed. Good blood flow was noted. No evidence of any immediate complications. Chest x-ray was ordered postoperatively. MMODL / IJN: [id number] /
--- NOTE | 2019-04-02 05:34 | PCN ---
PROCEDURE NOTE PROCEDURE: Placement of left brachial arterial line. PREOPERATIVE DIAGNOSES: Hypotension, congestive heart failure, and possible sepsis. POSTOPERATIVE DIAGNOSES: Hypotension, congestive heart failure, and possible sepsis. ANESTHESIA USED: None deployed. PROCEDURE: The left brachial region was prepared in a sterile fashion and drapes were applied. The left brachial artery was palpated, cannulated, and a guidewire was placed. A Cook catheter was inserted over the guidewire, and the guidewire was removed. Good blood flow and good waveform were noted, no evidence of any immediate complication. Line was secured using 3.0 silk sutures. MMODL / IJN: [id number] /
[2019-04-02] MEDS: DOBUTamine DRIP 500 MG in DEXTROSE/WATER 1 250ML.BAG IV SCH ×2 (06:16→20:13)
[2019-04-02] MEDS ORDERED: FUROSEMIDE 10 MG/ML 4 ML VIAL IV STA (07:37)
--- NOTE | 2019-04-02 08:04 | XR ---
EXAMINATION TYPE: XR chest 1V portable DATE OF EXAM: 04/02/2019 COMPARISON: 04/01/2019 INDICATION: CHF TECHNIQUE: Single frontal view of the chest is obtained. FINDINGS: The heart size is enlarged. The pulmonary vasculature is normal. There appears to be subsegmental atelectasis at the right base which may have some change release manager the in terval. Worsening is not clearly evident. Pacemaker overlies left chest. IMPRESSION: 1. Cardiomegaly. 2. Mild right lower lobe subsegmental atelectasis
--- NOTE | 2019-04-02 08:34 | PN ---
PROGRESS NOTE This is a 68-year-old lady with a chronic persistent atrial fibrillation, history of severe sleep apnea syndrome, pulmonary hypertension, right heart failure, who came into the hospital with significant weight gain, edema, hypotension. She was in the right heart failure yesterday. Her BNP was over 52,000. She has been initiated on aggressive diuresis and dobutamine. This morning, she feels somewhat better. She is making urine. Her blood pressure is in the 116 systolic on dobutamine 5 mcg. Vitals are stable. Heart rate is in the 80s, atrial fibrillation. Her blood pressure is about 116/70. There is JVD of 2 cm. No carotid bruit, S1-S2 heard normally, ejection systolic murmur audible at left lower sternal border and base. Lungs reveal diminished air entry both bases. Abdomen is distended. Lower extremity edema is significant. IMPRESSION: 1. Right heart failure with severe pulmonary hypertension secondary to sleep apnea syndrome. 2. Morbid obesity. 3. Chronic persistent atrial fibrillation. 4. History of biventricular pacemaker with generator change in 2018. PLAN: For today is to place her on a Lasix drip at 10 mg/hour, continue the dobutamine drip, supplement her potassium, add a small dose of amlodipine and metoprolol and see how she does. Her creatinine is better. She is making urine. Clinically there is modest but definite improvement. MMODL / IJN: [id number] /
[2019-04-02] MEDS: FUROSEMIDE 100 MG in SODIUM CHLORIDE 0.9% 90 ML IV SCH ×2 (09:05→20:12)
[2019-04-02] MEDS: METOPROLOL TARTRATE 25 MG TAB PO SCH ×2 (09:06→21:13)
[2019-04-02] MEDS: amLODIPine 2.5 MG TAB PO SCH (09:06)
[2019-04-02] MEDS: PANTOPRAZOLE 40 MG/10 ML VIAL IVP SCH (09:06)
--- NOTE | 2019-04-02 11:54 | ECHOF ---
Referral Reason:chf MEASUREMENTS -------- HEIGHT: 149.9 cm WEIGHT: 121.1 kg BP: 103/67 RVIDd: 4.9 cm (< 3.3) IVSd: 1.1 cm (0.6 - 1.1) LVIDd: 4.3 cm (3.9 - 5.3) LVPWd: 1.4 cm (0.6 - 1.1) IVSs: 1.9 cm LVIDs: 2.2 cm LVPWs: 2.0 cm LAESV Index (A-L): 67.92 ml/m Ao Diam: 3.4 cm (2.0 - 3.7) AV Cusp: 1.7 cm (1.5 - 2.6) RAP: 20.00 mmHg RVSP: 115.19 mmHg FINDINGS -------- Undetermined rhythm. This was a technically adequate study. The left ventricular size is normal. There is mild concentric left ventricular hypertrophy. Overa ll left ventricular systolic function is low-normal with, an EF between 50 - 55 %. Left ventricular fillimg pressure cannot be estimated due to severe mitral regurgitation. The right ventricle is severely enlarged. The right ventricular systolic function is moderately imp aired. Paradoxical motion of the right ventricular septum is consistent with right ventricular over load and/or elevated right ventricular end-diastolic pressure. LA is severely dilated >40 ml/m2 The right atrium is moderately enlarged. Electronic pacemaker lead seen in the right atrial cavity. Interatrial and interventricular septum intact. The aortic valve is trileaflet and appears structurally normal. There is no evidence of aortic regu rgitation. There is no evidence of aortic stenosis. Moderate mitral annular calcification present. Severe mitral regurgitation is present. Severe tricuspid regurgitation present. There is severe pulmonary hypertension. The right ventric ular systolic pressure, as measured by Doppler, is 115.19mmHg. Trace/mild (physiologic) pulmonic regurgitation. The aortic root size is normal. The inferior vena cava is dilated with no significant inspiratory collapse which is consistent estima eddie right atrial pressure of >20 mmHg. There is a trivial pericardial effusion present. CONCLUSIONS -------- 1. Undetermined rhythm. 2. This was a technically adequate study. 3. The left ventricular size is normal. 4. There is mild concentric left ventricular hypertrophy. 5. Overall left ventricular systolic function is low-normal with, an EF between 50 - 55 %. 6. Left ventricular fillimg pressure cannot be estimated due to severe mitral regurgitation. 7. The right ventricle is severely enlarged. 8. The right ventricular systolic function is moderately impaired. 9. Paradoxical motion of the right ventricular septum is consistent with right ventricular overload a nd/or elevated right ventricular end-diastolic pressure. 10. LA is severely dilated >40 ml/m2 11. The right atrium is moderately enlarged. 12. Electronic pacemaker lead seen in the right atrial cavity. 13. Interatrial and interventricular septum intact. 14. The aortic valve is trileaflet and appears structurally normal. 15. There is no evidence of aortic regurgitation. 16. There is no evidence of aortic stenosis. 17. Moderate mitral annular calcification present. 18. Severe mitral regurgitation is present. 19. Severe tricuspid regurgitation present. 20. There is severe pulmonary hypertension. 21. The right ventricular systolic pressure, as measured by Doppler, is 115.19mmHg. 22. Trace/mild (physiologic) pulmonic regurgitation. 23. The aortic root size is normal. 24. The inferior vena cava is dilated with no significant inspiratory collapse which is consistent es timated right atrial pressure of >20 mmHg. 25. There is a trivial pericardial effusion present. PROPERTY CLERK: Jeanie Brown RDCS
--- NOTE | 2019-04-02 12:59 | P.PN ---
Subjective Progress Note Date: 04/02/19 Principal diagnosis: Acute on chronic diastolic congestive heart failure and hypotension, possible sepsis. 68-year-old female patient of Dr. Cooper, with past medical history of chronic congestive heart failure with diastolic dysfunction, chronic A. fib not on chronic anticoagulation for history of GI bleeding, cardiomyopathy with permanent pacemaker implantation, anxiety, depression, GERD/reflux, hypertension, hyperlipidemia, previous history of CVA, morbid obesity, gait dy sfunction. In January 2019 patient was hospitalized for acute abdominal pain and was found to have an incarcerated umbilical hernia that contained multiple bowel loops. She underwent surgery for strangulated ventral hernia repair, patient had recovered and was sent to [facility] on Cipro and Flagyl for 1 week. In February while working with physical therapy there was any drainage noted from the abdominal wound, patient was hospitalized again, wound culture positive for Klebsiella pneumonia. She was treated with Unasyn, she underwent ultrasound guided continuous catheter placement for abdominal fluid collection, she was discharged back to [facility] with Rocephin infusions. On 04/01/2019 patient presented to the emergency department with low blood pressure readings, and she had been complaining of generalized weakness, fatigue 's been progressive. Patient is also admitted to shortness of breath when lying flat. She states that she had had some bilious vomiting, nausea, she had reached oral intake, denied any cough or congestion, no chest pain. Denied any diarrhea, denied any abdominal pain, umbilical percutaneous drain is still in place with small amount of bilious drainage. According to the nursing staff show blood pressures were acceptable however subsequently patient did become hypotensive with a systolic blood pressures as low as 50-80. Chest x-ray showed cardiomegaly, pulmonary venous hypertension and early interstitial edema, volume overload. EKG showed the ventricular paced rhythm, labs were reviewed showing low blood cell count of 10.8, hemoglobin of 12.1, INR 1.4, sodium is 138, potassium is 4.8, chloride is 108, CO2 17, BUN is 50 creatinine is 2.25, troponins were negative 2, proBNP was 53,200, urinalysis showed evidence of large amount of leuks, bacteria and white blood cells. Patient has received a dose of Rocephin, she has been started on dobutamine per cardiology recommendations, echocardiogram is pending, currently blood pressures have improved, 100/73, patient is in A. fib with a controlled rate, room air pulse ox is 99%. She is awaiting a bed in the intensive care unit Patient was reevaluated today on 04/02/2019, patient remains on Dobutrex, remains on Lasix drip which was recommended by cardiology. She is on 10 mg of Lasix per hour. And Dobutrex at 5 mcg/kg/m. Feeling better, breathing easier, she seems to have excellent urine output with the Lasix drip. Patient remains empirically on antibiotics, cultures are pending. Shortly after the patient arrived to the ICU yesterday, I placed a right subclavian central line, and a left brachial arterial line. Her labs today showed WBC count of 8.3 hemoglobin is 10.4, electrolytes are normal however she has slightly low bicarb of 18 and her renal functioning showed a BUN of 49 and creatinine 2.0. Slightly improved compared to yesterday, and I believe that's mostly with Dobutrex. Patient is not requiring any pressors, she is only on inotropic support. Echocardiogram showed good LV function. However she has significantly elevated right-sided ventricular systolic pressure of 1:15. She has severe mitral regurgitation and severe tricuspid regurgitation. Objective - Vital Signs Vital signs: Vital Signs Temp 98.1 F 04/02/19 12:00 Pulse 94 04/02/19 12:30 Resp 15 04/02/19 12:30 BP 98/69 04/01/19 17:00 Pulse Ox 96 04/02/19 12:30 Intake & Output 04/01/19 04/02/19 04/02/19 18:59 06:59 18:59 Intake Total 495.229 130 Output Total 150 1540 600 Balance -150 -1044.771 -470 Weight 121.109 kg 126.7 kg 126.7 kg Intake: IV 306 130 Pressure bags 66 30 Sodium Chloride 0.9% 1, 240 100 000 ml @ 20 mls/hr IV . Q24H DOC Rx#:[id number] Intake, IV Titration 189.229 Amount DOBUTamine DRIP 500 mg In 189.229 Dextrose/Water 1 250ml. bag @ 5 MCG/KG/MIN 18.166 mls/hr IV .[id number] DOC Rx#:[id number] Output: Urine 150 1540 600 Uretheral (Barton) 150 Other: Voiding Method Indwelling Catheter Indwelling Catheter Indwelling Catheter ABP, PAP, CO, CI - Last Documented Arterial Blood Pressure 97/60 - Exam Physical Exam: Revealed a 68-year-old female, morbidly obese, on 2 L nasal cannula, in no distress. Head: Atraumatic, normocephalic. HEENT:[Neck is supple.] [No neck masses.] [No thyromegaly.] [No JVD.] PERRLA, EOMI, dry mucous membranes. Right subclavian central line is noted. Chest: Symmetrical chest expansion. [Clear throughout, no crackles, no rhonchi, no wheezes.] Cardiac Exam: Irregular irregular rhythm. [Normal S1 and S2, no S3 gallop, 3/6 systolic murmur thought the precordium.] Abdomen: [Soft, nontender. No hepatosplenomegaly, normal bowel sounds, no guarding or rigidity. Abdomen is nontender, obese, there is intra umbilical drain with small amount of bilious drainage Extremities: [No clubbing, chronic venous stasis changes noted bilaterally with 2+ pitting edema. Neurological Exam: Alert and oriented 3. [No focal neurologic deficit.] Psychiatric: Normal mood, affect and normal mental status examination. Skin: Chronic venous stasis changes noted in lower extremities otherwise unremarkable Musculoskeletal good muscle tone, no deformities, good muscle strength bilaterally. - Labs CBC & Chem 7: 04/02/19 04:41 04/02/19 04:41 Labs: Abnormal Lab Results - Last 24 Hours (Table) 04/02/19 04/02/19 Range/Units 04:41 04:41 RBC 3.47 L (3.80-5.40) m/uL Hgb 10.4 L (11.4-16.0) gm/dL Hct 33.2 L (34.0-46.0) % RDW 18.4 H (11.5-15.5) % Plt Count 106 L (150-450) k/uL Sodium 136 L (137-145) mmol/L Chloride 110 H (98-107) mmol/L Carbon Dioxide 18 L (22-30) mmol/L BUN 49 H (7-17) mg/dL Creatinine 2.00 H (0.52-1.04) mg/dL Calcium 8.2 L (8.4-10.2) mg/dL HDL Cholesterol 20 L (40-60) mg/dL Microbiology - Last 24 Hours (Table) 04/01/19 07:40 Urine Culture - Preliminary Urine,Voided Assessment and Plan Assessment: #1. Acute on chronic diastolic congestive heart failure. #2. Acute kidney injury related to ATN #3. Acute urinary tract infection, urine cultures pending #4. Recent hospitalization in February for intra-abdominal abscess, with placement of ultrasound-guided percutaneous drain, with wound cultures positive for Klebsiella pneumonia patient was discharged back to subacute rehab with Rocephin infusions #5. Recent surgery in January 2019 for repair of incarcerated internal hernia with secondary peritonitis, status post resection of a portion of the bowel, at that time patient completed a course of Cipro and Flagyl for 1 week at the [facility] post discharge #6. Chronic A. fib, not on anticoagulation related to history of GI bleeding #7. Severe pulmonary hypertension #8. Morbid obesity #9. Non-rheumatic mitral regurgitation, moderate in severity and severe tricuspid regurgitation #10. Hypertension #11. Hyperlipidemia #12. GERD/reflux #13. Severe osteoarthritis #14. Suspect chronic obesity hypoventilation syndrome/obstructive sleep apnea #15. Chronic medical deconditioning #16. Chronic diverticulosis #17: Hypotension on presentation, possibility of sepsis is not entirely ruled out. Especially with the patient having previous history of multiple urinary tract infections and intra-abdominal abscess. Hence we'll continue antibiotics. Her hypotension could be also related to her diastolic congestive heart failure. Recommendation: Continue to monitor in the ICU. Continue Lasix drip. Continue dobutamine. Continue GI and DVT prophylaxis. Continue antibiotics. Continue GI and DVT prophylaxis. We'll continue to follow closely in the ICU. Time with Patient: Less than 30
--- NOTE | 2019-04-02 14:55 | CONS ---
CONSULTATION REASON FOR CONSULTATION: Renal failure. HISTORY OF PRESENT ILLNESS: The patient is a 68-year-old female who was admitted to the hospital yesterday with complaints of shortness of breath, weakness. The patient was also hypotensive. She was initially on pressors, currently off of pressors. The patient was noted to be significantly volume overloaded and is maintained on a Lasix drip. Yesterday she was on intravenous push Lasix q. 12 hours and this morning it was changed to a drip. The patient was hospitalized in January for incarcerated umbilical hernia and is status post surgery and repair of ventral hernia. She was discharged to [facility] following the surgery. The patient did have complication of wound infection and has been on antibiotics. She denied any nausea or vomiting. Serum creatinine was 2.25 mg/dL yesterday, it is at 2.0 mg/dL today. Previous laboratories showed serum creatinine 0.97 on 03/23/2019. Currently the patient is off of pressors. PAST MEDICAL HISTORY: Hypertension, recent abdominal surgery for incarcerated umbilical hernia, history of atrial fibrillation, cerebrovascular accident, transient ischemic attack, gastroesophageal reflux disease, hypertension, osteoarthritis, hyperlipidemia, cardiomyopathy. PAST SURGICAL HISTORY: Bowel resection, tonsillectomy, cardiac catheterization, left total knee arthroplasty, colonoscopy, cardioversion. SOCIAL HISTORY: Negative for smoking, drug abuse, or alcohol abuse. MEDICATIONS: Medications prior to admission included Dulcolax, Lopressor, Aldactone, Ultram, Rocephin. ALLERGIES: ALLERGIES INCLUDE ASPIRIN, INTRAVENOUS CONTRAST, AND NSAIDS. PHYSICAL EXAMINATION: On examination, patient is currently comfortable, awake. She is not in any acute distress. Blood pressure is 97/60, heart rate 94 per minute. Patient is afebrile. EXAMINATION OF THE HEART: S1, S2. EXAMINATION OF THE LUNGS: Decreased breath sounds at the bases. Bilateral basilar crackles are heard. ABDOMEN: Soft, nontender, obese. Examination of lower extremities shows edema 2+ bilaterally. HOME DECORATOR EXAM: Grossly intact. LABORATORY DATA: Laboratories show sodium 136, potassium 4.4, chloride 110, CO2 is 18, BUN 14, and creatinine 2.0. Hemoglobin of 10.4 grams/dL. Urinalysis shows 2+ protein, blood moderate, WBCs 88. ASSESSMENT: 1. Acute kidney injury, cardiorenal, currently slightly improved. Continue with the Lasix drip for now. 2. Metabolic acidosis, non-gap, secondary to renal failure. Patient was also hypotensive yesterday. I do not see a recent lactic acid level. Continue to monitor for now and repeat laboratories in the morning. Suspect some degree of alkalosis associated with diuresis. 3. Congestive heart failure, acute on top of chronic, mainly diastolic. Ejection fraction 50% to 55% on echocardiogram. Left atrium is severely dilated. 4. Recent surgery for incarcerated umbilical hernia, incarcerated ventral hernia in January 2019, status post surgery and antibiotics for wound infection and intraabdominal abscess formation. 5. Chronic atrial fibrillation maintained on anticoagulation. 6. Severe pulmonary hypertension. PLAN: Continue with the Lasix drip. Repeat laboratories in the a.m. Continue to avoid nephrotoxic agents. Thank you for this consultation. Will continue to follow the patient with you during her hospitalization. MMODL / IJN: [id number] /
[2019-04-02] MEDS ORDERED: BARIUM SULFATE 450 ML ORAL.SUSP BOTTLE PO PRN (15:02)
[2019-04-02] MEDS: ONDANSETRON 4 MG/2 ML VIAL IVP PRN (15:47)
[2019-04-02] MEDS: FLUCONAZOLE 100 MG TAB PO SCH (15:48)
--- NOTE | 2019-04-02 16:07 | P.PN ---
Progress Note - Text Progress Note Date: 04/02/19 Chief Complaint: Feeling unwell Interval history: This is a 68-year-old patient who follows Dr. Cooper. hospital cna Dr. SHELL Dawn. extensive medical history. Chronic stable medical conditions include GERD, hyperlipidemia, hypertension, osteoarthritis, had a stroke in 2017 left her with a slow speech, diverticulosis, PTSD ,depression, CHF EF of 65-70%, chronic cor pulmonale, severe secondary pulmonary hypertension and atrial fibrillation. 2 months ago-underwent small bowel resection, repair of strangulated ventral hernia and incarcerated umbilical hernia and partial omentectomy. On March 20 admitted with abdominal pain computed tomography scan-showed a large subcutaneous fluid collection on the lower anterior abdominal wall . Drain was placed. Cultures were positive for Corynebacterium stratum and Klebsiella pneumoniae. Treat with IV ceftriaxone. Discharged on March 25 to the [facility]. Patient now presents with increasing weakness tiredness fatigue. Decreased appetite. Some shortness of breath. Increasing lower extremity swelling. The patient running low. Occasional bowel movement. Feeling tired and rundown. Initial blood pressure was in the 80s. Admitted to ICU. Started on IV fluids and dobutamine. Denies any obvious fever and chills. Admitted with-hypotension, acute kidney injury from a cardiorenal syndrome, acute on chronic cor pulmonale exacerbation. Today-. Remains in the ICU. Tired. Oral intake appetite minimally improved. Remains on Lasix and dobutamine drip. Patient is a 2000 mL in negative fluid balance. Review of systems: Was done for constitutional, cardiovascular, GI, pulmonary. relevant finding as above Active Medications Amlodipine Besylate (Norvasc) 2.5 mg PO DAILY [facility] Last Admin: 04/02/19 09:06 Dose: 2.5 mg Documented by: Fluconazole (Diflucan) 100 mg PO DAILY [facility] Last Admin: 04/02/19 15:48 Dose: 100 mg Documented by: Heparin Sodium (Porcine) (Heparin) 5,000 unit SQ Q8HR [facility] Last Admin: 04/02/19 09:06 Dose: 5,000 unit Documented by: Sodium Chloride (Saline 0.9%) 1,000 mls @ 20 mls/hr IV .Q24H [facility] Last Admin: 04/01/19 21:19 Dose: 20 mls/hr Documented by: Dobutamine HCl/Dextrose 500 mg (/ IV Solution) 250 mls @ 18.166 mls/hr IV .[id number] [facility] Last Admin: 04/02/19 06:16 Dose: 5 mcg/kg/min, 18.166 mls/hr Documented by: Cefepime HCl 2 gm/ Sodium (Chloride) 100 mls @ 200 mls/hr IVPB Q24H [facility] Last Admin: 04/01/19 21:18 Dose: 200 mls/hr Documented by: Furosemide 100 mg/ Sodium (Chloride) 100 mls @ 10 mls/hr IV .Q10H [facility] Last Admin: 04/02/19 09:05 Dose: 10 mg/hr, 10 mls/hr Documented by: Metoprolol Tartrate (Lopressor) 25 mg PO BID [facility] Last Admin: 04/02/19 09:06 Dose: 25 mg Documented by: Nitroglycerin (Nitrostat) 0.4 mg SUBLINGUAL Q5M PRN PRN Reason: Chest Pain Ondansetron HCl (Zofran) 4 mg IVP Q6HR PRN PRN Reason: Nausea And Vomiting Last Admin: 04/02/19 15:47 Dose: 4 mg Documented by: Pantoprazole Sodium (Protonix) 40 mg PO AC-BRKFST [facility] Tramadol HCl (Ultram) 50 mg PO Q6H PRN PRN Reason: Pain Physical examination: VITAL SIGNS: 98.1, 92, 15, 94/51, 99% GENERAL: Propped up in bed, tired, awake EYES: Pupils equal. Conjunctiva pale HEENT: External appearance of nose and ears normal, oral cavity grossly normal. NECK: Short and thick, JVD unable to assess; masses not palpable. HEART: Heart sounds muffled; edema present. LUNGS: Respiratory rate normal; distant breath sounds. ABDOMEN: Soft, tender, JESSIKA drain in place,, liver spleen not palpable, no masses palpable. Bowel sounds present PSYCH: Alert and oriented x3; mood and affect low INVESTIGATIONS, reviewed in the clinical context: White count 8.3, hemoglobin 10.4, platelets 106, potassium 4.4, bun 49, creatinine 2 Previous testing White count 10.8 hemoglobin 12.1 ProTime 14.4 potassium 4.8 BUN 50 creatinine 2.25 Bun 27 creatinine 0.97 on March 23 Chest x-ray film personally reviewed by me-cardiomegaly, questionable right- sided infiltrate EKG tracing personally reviewed by Meghan paced rhythm Previous testing Computed tomography scan of the abdomen-fluid collection of lower anterior abdominal wall Wound culture-Corynebacterium striatum, Klebsiella pneumoniae, Assessment: -Hypotension from acute cardiorenal syndrome -Acute lower abdominal wall fluid collection, JESSIKA drain in place, with cultures growing Klebsiella Pneumoniae and Corynebacterium Stratum., From last admission -Status post-incarcerated abdominal ventral wall hernia with small bowel, leading to repair of the same,-2 months ago -Acute on Chronic congestive heart failure from diastolic dysfunction EF 65-70%, slow to respond -Acute on Chronic cor pulmonale, exacerbation -Severe secondary pulmonary hypertension from CHF -Hypertensive heart disease -Moderate mitral regurgitation, severe tricuspid regurgitation, mitral valve prolapse, nontraumatic t -GERD -Hyperlipidemia -Essential hypertension, history of -Primary osteoarthritis -Chronic diverticulosis -Morbid obesity BMI 54.5 -Possibly obesity hypoventilation syndrome -Biventricular pacemaker -Metabolic acidosis from acute kidney injury Plan: Patient remains on IV cefepime, IV dobutamine, IV Lasix drip. Care was discussed with the patient and encourage oral intake. Follow I's and O's. Be f ollowed by multiple consultants. Patient also have some volume contraction.
--- NOTE | 2019-04-02 16:25 | CT ---
EXAMINATION TYPE: CT abdomen pelvis wo con DATE OF EXAM: 04/02/2019 HISTORY: Abdominal wall infected seroma. CT DLP: 1378.2 mGycm. Automated Exposure Control for Dose Reduction was Utilized. TECHNIQUE: CT scan of the abdomen and pelvis is performed without oral or IV contrast. COMPARISON: CT abdomen and pelvis March 18, 2019 and older CTs FINDINGS: Within the limitations of a non-contrast study, the following observations are made. Exam noticed suboptimal due to patient's large body habitus. LUNG BASES: Persistent cardiomegaly. Persistent small to moderate-sized right pleural effusion partia lly imaged with tiny left pleural effusion on current study. Both are increased in size from prior st udies. There is associated right basilar atelectasis and/or consolidation. LIVER/GB: Small dependent calcified gallstones in gallbladder redemonstrated without surrounding infl ammatory change. PANCREAS: No significant abnormality is seen. SPLEEN: No significant abnormality is seen. ADRENALS: Slight thickening to left adrenal gland stable. KIDNEYS: Barton catheter in decompressed bladder on current study. Cortical thinning bilaterally with small nonobstructing right renal calculi. BOWEL: No suspicious small or large bowel dilatation. Diverticula in left and sigmoid colon. Surgical changes to bowel with with sutures left upper quadrant axial image 36 redemonstrated. Focal mild pro minence and fecal material at this level again seen as there is suspected [id number]-sk-[id number] anastomosis. GENITAL ORGANS: Anteverted uterus. LYMPH NODES: No greater than 1cm abdominal or pelvic lymph nodes are appreciated. OSSEOUS STRUCTURES: Slight grade 1 anterolisthesis L4 on L5 mild to moderate disc space narrowing and vacuum disc phenomenon L4-L5 level. Multilevel spurring in the spine. Facet arthropathy lower lumbar levels. OTHER: Severe diffuse soft tissue anasarca. Inferior percutaneous pigtail drainage catheter through t hin-walled hypodense fluid collection left lower quadrant not as well-seen on prior study measuring a pproximately 6.8 x 3.5 cm current study axial image 59. If this correlates with fluid collection prio r study in the midline likely slightly smaller in size. IMPRESSION: Anterior abdominal wall thin-walled hyperdense fluid collection has new pigtail catheter and slightly smaller in size. Correlate with output results from drainage catheter. Severe diffuse so ft tissue anasarca redemonstrated.
--- NOTE | 2019-04-02 20:14 | PN ---
PROGRESS NOTE DATE OF SERVICE: 04/02/2019 REASON FOR FOLLOWUP: 1. Abdominal wall infected seroma. 2. UTI. INTERVAL HISTORY: The patient is currently afebrile. The patient is breathing comfortably. The patient denies having any chest pain or cough. No nausea, vomiting or abdominal pain or diarrhea. Overall output in the drainage catheter has significant decreased per the nurse. PHYSICAL EXAMINATION: Blood pressure 101/57 with a pulse of 90, temperature 98.1. She is 95% on room air. General description is an elderly female lying in bed in no distress. RESPIRATORY SYSTEM: Unlabored breathing. Clear to auscultation anteriorly. HEART: S1, S2. Regular rate and rhythm. ABDOMEN: Soft. No tenderness. LABS: Hemoglobin is 10.4, white count 8.3, BUN of 49, creatinine 2.0. Urine with Frida albicans. Blood culture has been negative. DIAGNOSTIC IMPRESSION AND PLAN: 1. Patient admitted to hospital with hypertension which is likely multifactorial in this patient with a possible cardiac component. She also has a urinary tract infection with urine showing Frida albicans. Diflucan will be added. 2. Patient with history of abdominal wall seroma, infected in this patient who has been on Rocephin in the outpatient setting. Overall drainage has decreased. We will obtain a CT with oral contrast only to determine if the seroma has resolved; to consider removal of the drainage catheter. Monitor clinical course closely. MMODL / IJN: [id number] /
[2019-04-02] MEDS: CEFEPIME 2 GM in SODIUM CHLORIDE 0.9% 100 ML IVPB SCH (21:10)
[2019-04-02] MEDS: SODIUM CHLORIDE 0.9% 1,000 ML IV SCH (21:15)
[2019-04-03] MEDS: FUROSEMIDE 100 MG in SODIUM CHLORIDE 0.9% 90 ML IV SCH ×2 (04:22→09:15)
[2019-04-03 04:30] LABS: Anisocytosis Slight; HCT 34.8 % (34.0-46.0); HGB 10.3 gm/dL (11.4-16.0); Hypochromasia Marked; MCH 28.4 pg (25.0-35.0); MCHC 29.7 g/dL (31.0-37.0); MCV 95.7 fL (80.0-100.0); Macrocytosis Slight; Mean Platelet Volume 10.6; Poikilocytosis Moderate; RBC 3.64 m/uL (3.80-5.40); RDW 18.7 % (11.5-15.5); WBC 7.5 k/uL (3.8-10.6)
[2019-04-03 04:49] LABS: Calcium 8.1 mg/dL (8.4-10.2); Potassium 4.4 mmol/L (3.5-5.1)
[2019-04-03 04:55] LABS: Platelet Count 94 k/uL (150-450)
--- NOTE | 2019-04-03 09:03 | XR ---
EXAMINATION TYPE: XR chest 1V portable DATE OF EXAM: 04/03/2019 COMPARISON: 04/02/2019 HISTORY: Congestive heart failure. Shortness of breath. TECHNIQUE: Single frontal view of the chest is obtained. FINDINGS: There is redemonstration of marked cardiomegaly. Multilead left-sided cardiac device is ag ain seen. There is blunting of the costophrenic angles with small layering pleural effusions. Diffuse interstitial prominence. Right-sided subclavian approach central venous catheter is similar in posit ion. IMPRESSION: Unchanged exam from the prior with small bilateral layering pleural effusions, interstit ial edema, and marked cardiomegaly.
--- NOTE | 2019-04-03 09:09 | PN ---
PROGRESS NOTE Mrs. Ana Sheppard is on a dobutamine and Lasix drip. Her creatinine has improved. Edema has come down. Weight has decreased. She is clinically doing better. Vital signs are stable. Blood pressure 110/70, pulse rate is about 80, irregular. JVD 2 cm. No carotid bruit. S1, S2 heard normally. Ejection systolic murmur at left lower sternal border. Lungs reveal diminished air entry. Lower extremity edema has improved. We will continue IV Lasix drip as well as the dobutamine drip and monitor her electrolytes closely. Prognosis remains guarded. MMODL / IJN: [id number] /
[2019-04-03] MEDS: FLUCONAZOLE 100 MG TAB PO SCH (09:15)
[2019-04-03] MEDS: METOPROLOL TARTRATE 25 MG TAB PO SCH ×2 (09:15→21:26)
[2019-04-03] MEDS: HEPARIN SODIUM,PORCINE 5,000 UNIT/ML 1 ML VIAL SQ SCH ×3 (09:15→23:47)
[2019-04-03] MEDS: PANTOPRAZOLE 40 MG TABLET PO SCH (09:15)
[2019-04-03] MEDS: DOBUTamine DRIP 500 MG in DEXTROSE/WATER 1 250ML.BAG IV SCH ×2 (10:18→23:48)
[2019-04-03] MEDS: amLODIPine 2.5 MG TAB PO SCH (10:39)
--- NOTE | 2019-04-03 11:41 | CDI ---
Documentation Clarification Form Date: 04/03/2019 11:30:54 AM From: Meri Kearney CCS, CCDS Admit Date: 04/01/2019 09:56:00 AM Patient Name: Ana Sheppard Visit Number: [id number] Discharge Date: ATTENTION: The Clinical Documentation Specialists (CDI) and [facility] Coding Staff appreciate your assistance in clarifying documentation. Please respond to the clarification below the line at the bottom and electronically sign. The CDI & [facility] Coding staff will review the response and follow-up if needed. Please note: Queries are made part of the Legal Health Record. If you have any questions, please contact the author of this message via ITS. Dr. Hector Felipe: A diagnosis of anemia lacks specificity to accurately reflect your patients severity of condition and clarification is needed. History/Risk Factors: Anemia nos, GERD, Hyperlipidemia, Hypertension, Osteoarthritis, Stroke '17 with residual slow speech, Diverticulosis status post recent bowel resection & ventral hernia repair, PTSD, Depression, Diastolic CHF, Chronic cor pulmonale, severe secondary pulmonary hypertension & atrial fibrillation. Clinical indicators: Presented with increasing weakness & fatigue, decreased appetite, sob, increasing lower extremity swelling, hypotensive, admitted to ICU with cardiorenal syndrome: LEAH with ATN & acute on chronic diastolic CHF & UTI, possible Sepsis. Hemoglobin: 12.1 - 10.4* - 10.3* Hematocrit: 39.4 - 33.2* - 34.8 Treatment: IV Rocephin, IV fluid rate 20, IV Dobutamine HCI/Dextrose, IV Protonix, IV Zofran, IV Lasix In order to capture the severity of condition, please clarify the type of anemia and etiology if known: Acute blood loss anemia Acute on chronic blood loss anemia Chronic blood loss anemia Iron deficiency anemia Hemolytic anemia Drug induced anemia Nutritional anemia Anemia of chronic kidney disease, if CKD is present Unable to determine Other, please specify (Last Revision: December 2016) Anemia of chronic disease MTDD
--- NOTE | 2019-04-03 12:24 | P.PN ---
Subjective Progress Note Date: 04/03/19 Principal diagnosis: Acute on chronic diastolic congestive heart failure and hypotension, possible sepsis. 68-year-old female patient of Dr. Cooper, with past medical history of chronic congestive heart failure with diastolic dysfunction, chronic A. fib not on chronic anticoagulation for history of GI bleeding, cardiomyopathy with permanent pacemaker implantation, anxiety, depression, GERD/reflux, hypertension, hyperlipidemia, previous history of CVA, morbid obesity, gait dy sfunction. In January 2019 patient was hospitalized for acute abdominal pain and was found to have an incarcerated umbilical hernia that contained multiple bowel loops. She underwent surgery for strangulated ventral hernia repair, patient had recovered and was sent to [facility] [place] on Cipro and Flagyl for 1 week. In February while working with physical therapy there was any drainage noted from the abdominal wound, patient was hospitalized again, wound culture positive for Klebsiella pneumonia. She was treated with Unasyn, she underwent ultrasound guided continuous catheter placement for abdominal fluid collection, she was discharged back to [facility] with Rocephin infusions. On 04/01/2019 patient presented to the emergency department with low blood pressure readings, and she had been complaining of generalized weakness, fatigue 's been progressive. Patient is also admitted to shortness of breath when lying flat. She states that she had had some bilious vomiting, nausea, she had reached oral intake, denied any cough or congestion, no chest pain. Denied any diarrhea, denied any abdominal pain, umbilical percutaneous drain is still in place with small amount of bilious drainage. According to the nursing staff show blood pressures were acceptable however subsequently patient did become hypotensive with a systolic blood pressures as low as 50-80. Chest x-ray showed cardiomegaly, pulmonary venous hypertension and early interstitial edema, volume overload. EKG showed the ventricular paced rhythm, labs were reviewed showing low blood cell count of 10.8, hemoglobin of 12.1, INR 1.4, sodium is 138, potassium is 4.8, chloride is 108, CO2 17, BUN is 50 creatinine is 2.25, troponins were negative 2, proBNP was 53,200, urinalysis showed evidence of large amount of leuks, bacteria and white blood cells. Patient has received a dose of Rocephin, she has been started on dobutamine per cardiology recommendations, echocardiogram is pending, currently blood pressures have improved, 100/73, patient is in A. fib with a controlled rate, room air pulse ox is 99%. She is awaiting a bed in the intensive care unit Patient was reevaluated today on 04/02/2019, patient remains on Dobutrex, remains on Lasix drip which was recommended by cardiology. She is on 10 mg of Lasix per hour. And Dobutrex at 5 mcg/kg/m. Feeling better, breathing easier, she seems to have excellent urine output with the Lasix drip. Patient remains empirically on antibiotics, cultures are pending. Shortly after the patient arrived to the ICU yesterday, I placed a right subclavian central line, and a left brachial arterial line. Her labs today showed WBC count of 8.3 hemoglobin is 10.4, electrolytes are normal however she has slightly low bicarb of 18 and her renal functioning showed a BUN of 49 and creatinine 2.0. Slightly improved compared to yesterday, and I believe that's mostly with Dobutrex. Patient is not requiring any pressors, she is only on inotropic support. Echocardiogram showed good LV function. However she has significantly elevated right-sided ventricular systolic pressure of 1:15. She has severe mitral regurgitation and severe tricuspid regurgitation. Reevaluated today on 04/03/2019, patient remains on Lasix drip at 10 mg per hour remains on dobutamine at 5 mcg/kg/m. Continues to have excellent urine output, patient is negative over 3-1/2 L in the last 3 days. Her renal functioning is surprisingly better. Patient is on 2 L nasal cannula, comfortable, in no distress, blood pressure is marginal but not requiring any pressors. Remains mostly on inotropic support/dobutamine. WBC count is 7.5 hemoglobin is 10.3 left lites are normal BUN is down to 47 creatinine is down to 1.88. Blood cultures are negative. Urine is showing some Frida. Patient is being followed by infectious disease on the case. Objective - Vital Signs Vital signs: Vital Signs Temp 97.4 F L 04/03/19 08:00 Pulse 76 04/03/19 11:00 Resp 13 04/03/19 11:00 BP 105/77 04/03/19 11:00 Pulse Ox 97 04/03/19 11:00 Intake & Output 04/02/19 04/03/19 04/03/19 18:59 06:59 18:59 Intake Total 412 862.000 374 Output Total 1525 1950 660 Balance -1113 -1088.000 -286 Weight 126.4 kg 125.2 kg Intake: IV 312 412 124 Cefepime 2 gm In Sodium 100 Chloride 0.9% 100 ml @ 200 mls/hr IVPB Q24H DOC Rx#:[id number] Pressure bags 72 72 24 Sodium Chloride 0.9% 1, 240 240 100 000 ml @ 20 mls/hr IV . Q24H DOC Rx#:[id number] Intake, IV Titration 450.000 250 Amount DOBUTamine DRIP 500 mg In 250 250 Dextrose/Water 1 250ml. bag @ 5 MCG/KG/MIN 18.166 mls/hr IV .[id number] DOC Rx#:[id number] Furosemide 100 mg In 200.000 Sodium Chloride 0.9% 90 ml @ 10 MG/HR 10 mls/hr IV .Q10H DOC Rx#: [id number] Oral 100 Output: Urine 1525 1950 660 Other: Voiding Method Indwelling Catheter Indwelling Catheter Indwelling Catheter ABP, PAP, CO, CI - Last Documented Arterial Blood Pressure 98/57 - Exam Physical Exam: Revealed a 68-year-old female, morbidly obese, on 2 L nasal cannula, in no distress. Head: Atraumatic, normocephalic. HEENT:[Neck is supple.] [No neck masses.] [No thyromegaly.] [No JVD.] PERRLA, EOMI, dry mucous membranes. Chest: Symmetrical chest expansion. [Clear throughout, no crackles, no rhonchi, no wheezes.] Cardiac Exam: Irregular irregular rhythm. [Normal S1 and S2, no S3 gallop, 3/6 systolic murmur thought the precordium.] Abdomen: [Soft, nontender. No hepatosplenomegaly, normal bowel sounds, no guarding or rigidity. Abdomen is nontender, obese, there is intra umbilical drain with small amount of bilious drainage Extremities: [No clubbing, chronic venous stasis changes noted bilaterally with 2+ pitting edema. Right brachial PICC line is noted. Neurological Exam: Alert and oriented 3. [No focal neurologic deficit.] Psychiatric: Normal mood, affect and normal mental status examination. Skin: Chronic venous stasis changes noted in lower extremities otherwise unremarkable Musculoskeletal good muscle tone, no deformities, good muscle strength bilaterally. - Labs CBC & Chem 7: 04/03/19 04:15 04/03/19 04:15 Labs: Abnormal Lab Results - Last 24 Hours (Table) 04/03/19 04/03/19 Range/Units 04:15 04:15 RBC 3.64 L (3.80-5.40) m/uL Hgb 10.3 L (11.4-16.0) gm/dL MCHC 29.7 L (31.0-37.0) g/dL RDW 18.7 H (11.5-15.5) % Plt Count 94 L (150-450) k/uL Sodium 136 L (137-145) mmol/L Chloride 110 H (98-107) mmol/L Carbon Dioxide 18 L (22-30) mmol/L BUN 47 H (7-17) mg/dL Creatinine 1.88 H (0.52-1.04) mg/dL Calcium 8.1 L (8.4-10.2) mg/dL Microbiology - Last 24 Hours (Table) 04/01/19 10:53 Blood Culture - Preliminary Blood No Growth after 24 hours 04/01/19 07:40 Urine Culture - Final Urine,Voided Frida albicans Assessment and Plan Assessment: #1. Acute on chronic diastolic congestive heart failure. #2. Acute kidney injury related to ATN #3. Acute urinary tract infection, urine cultures pending #4. Recent hospitalization in February for intra-abdominal abscess, with placement of ultrasound-guided percutaneous drain, with wound cultures positive for Klebsiella pneumonia patient was discharged back to subacute rehab with Rocephin infusions #5. Recent surgery in January 2019 for repair of incarcerated internal hernia with secondary peritonitis, status post resection of a portion of the bowel, at that time patient completed a course of Cipro and Flagyl for 1 week at the [facility] post discharge #6. Chronic A. fib, not on anticoagulation related to history of GI bleeding #7. Severe pulmonary hypertension #8. Morbid obesity #9. Non-rheumatic mitral regurgitation, moderate in severity and severe tricuspid regurgitation #10. Hypertension #11. Hyperlipidemia #12. GERD/reflux #13. Severe osteoarthritis #14. Suspect chronic obesity hypoventilation syndrome/obstructive sleep apnea #15. Chronic medical deconditioning #16. Chronic diverticulosis #17: Hypotension on presentation, possibility of sepsis is not entirely ruled out. Especially with the patient having previous history of multiple urinary tract infections and intra-abdominal abscess. Hence we'll continue antibiotics. Her hypotension could be also related to her diastolic congestive heart failure. Cultures have remained negative. Recommendation: Continue to monitor in the ICU. As long as the patient is on dobutamine. And as long as we are keeping Lasix drip. Continue Lasix drip. Continue dobutamine. Continue GI and DVT prophylaxis. Continue antibiotics. As per infectious disease on the case. Continue GI and DVT prophylaxis. Advice RN to check the PICC line, if nonfunctional these to be removed. If functional will keep it and use it as needed. We'll continue to follow. Time with Patient: Less than 30
--- NOTE | 2019-04-03 15:42 | PN ---
PROGRESS NOTE Patient is seen for followup for acute kidney injury, mainly cardiorenal. She remains on dobutamine drip and Lasix drip. Overall, she has improved and she is complaining of less shortness of breath. PHYSICAL EXAMINATION: On examination today, blood pressure was 108/76, heart rate 84 per minute. She is afebrile. Examination of the heart S1, S2. Examination of the lungs, bilateral breath sounds are heard. Abdomen is soft, nontender, distended, obese with a JESSIKA drain noted. Examination of the lower extremities shows edema 2+ bilaterally. [employer] exam grossly intact. Patient moving all 4 extremities. LABS: Show sodium 136, potassium 4.4, chloride 110, CO2 is 18, BUN 47, creatinine 1.8. ASSESSMENT: 1. Acute kidney injury, cardiorenal, currently improving, continue with the dobutamine and Lasix drip. 2. Volume overload, now improving slowly. 3. Congestive heart failure, acute on top of chronic, mainly diastolic, ejection fraction 50%-55%. 4. Severely dilated left atrium. 5. Recent surgery for incarcerated umbilical hernia. In January, status post surgery and antibiotics and drainage of intraabdominal abscess formation postoperatively. 6. Chronic atrial fibrillation, maintained on anticoagulation. 7. Severe pulmonary hypertension. PLAN: Continue with the dobutamine drip and Lasix drip for now. Repeat labs in a.m. Monitor electrolytes. MMODL / IJN: [id number] /
--- NOTE | 2019-04-03 20:39 | P.PN ---
Progress Note - Text Progress Note Date: 04/03/19 Chief Complaint: Feeling unwell Interval history: This is a 68-year-old patient who follows Dr. Cooper. 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 SHELL Dawn. extensive medical history. Chronic stable medical conditions include GERD, hyperlipidemia, hypertension, osteoarthritis, had a stroke in 2017 left her with a slow speech, diverticulosis, PTSD ,depression, CHF EF of 65-70%, chronic cor pulmonale, severe secondary pulmonary hypertension and atrial fibrillation. 2 months ago-underwent small bowel resection, repair of strangulated ventral hernia and incarcerated umbilical hernia and partial omentectomy. On March 20 admitted with abdominal pain computed tomography scan-showed a large subcutaneous fluid collection on the lower anterior abdominal wall . Drain was placed. Cultures were positive for Corynebacterium stratum and Klebsiella pneumoniae. Treat with IV ceftriaxone. Discharged on March 25 to the [facility]. Patient now presents with increasing weakness tiredness fatigue. Decreased appetite. Some shortness of breath. Increasing lower extremity swelling. The patient running low. Occasional bowel movement. Feeling tired and rundown. Initial blood pressure was in the 80s. Admitted to ICU. Started on IV fluids and dobutamine. Denies any obvious fever and chills. Admitted with-hypotension, acute kidney injury from a cardiorenal syndrome, acute on chronic cor pulmonale exacerbation. Today-. ICU. Tired lethargic. Barely eating. Remains a bit. Remains on do butamine and Lasix drip. About 4.4 L in negative fluid balance is admission. Review of systems: Was done for constitutional, cardiovascular, GI, pulmonary. relevant finding as above Active Medications Amlodipine Besylate (Norvasc) 2.5 mg PO DAILY [facility] Last Admin: 04/03/19 10:39 Dose: 2.5 mg Documented by: Fluconazole (Diflucan) 100 mg PO DAILY [facility] Last Admin: 04/03/19 09:15 Dose: 100 mg Documented by: Heparin Sodium (Porcine) (Heparin) 5,000 unit SQ Q8HR [facility] Last Admin: 04/03/19 16:52 Dose: 5,000 unit Documented by: Sodium Chloride (Saline 0.9%) 1,000 mls @ 20 mls/hr IV .Q24H [facility] Last Admin: 04/02/19 21:15 Dose: 20 mls/hr Documented by: Dobutamine HCl/Dextrose 500 mg (/ IV Solution) 250 mls @ 18.166 mls/hr IV .[id number] [facility] Last Admin: 04/03/19 10:18 Dose: 5 mcg/kg/min, 18.166 mls/hr Documented by: Cefepime HCl 2 gm/ Sodium (Chloride) 100 mls @ 200 mls/hr IVPB Q24H [facility] Last Admin: 04/02/19 21:10 Dose: 200 mls/hr Documented by: Furosemide 100 mg/ Sodium (Chloride) 100 mls @ 10 mls/hr IV .Q10H [facility] Last Admin: 04/03/19 09:15 Dose: 10 mg/hr, 10 mls/hr Documented by: Metoprolol Tartrate (Lopressor) 25 mg PO BID [facility] Last Admin: 04/03/19 09:15 Dose: 25 mg Documented by: Nitroglycerin (Nitrostat) 0.4 mg SUBLINGUAL Q5M PRN PRN Reason: Chest Pain Ondansetron HCl (Zofran) 4 mg IVP Q6HR PRN PRN Reason: Nausea And Vomiting Last Admin: 04/02/19 15:47 Dose: 4 mg Documented by: Pantoprazole Sodium (Protonix) 40 mg PO AC-BRKFST [facility] Last Admin: 04/03/19 09:15 Dose: 40 mg Documented by: Tramadol HCl (Ultram) 50 mg PO Q6H PRN PRN Reason: Pain Last Admin: 04/02/19 17:33 Dose: 50 mg Documented by: Physical examination: VITAL SIGNS: 97.9, 80, 20, 108/76, 99% on 2 L GENERAL: Laying in bed, lethargic does open eyes EYES: Pupils equal. Conjunctiva pale HEENT: External appearance of nose and ears normal, oral cavity grossly normal. NECK: Short and thick, JVD unable to assess; masses not palpable. HEART: Heart sounds muffled; edema present. LUNGS: Respiratory rate normal; distant breath sounds. ABDOMEN: Soft, tender, JESSIKA drain in place,, liver spleen not palpable, no masses palpable. Bowel sounds present PSYCH: Tired, hardly answering questions INVESTIGATIONS, reviewed in the clinical context: White count 7.5 hemoglobin 10.3 potassium 4.4 bun 47 creatinine 1.88 Previous testing White count 10.8 hemoglobin 12.1 ProTime 14.4 potassium 4.8 BUN 50 creatinine 2.25 Bun 27 creatinine 0.97 on March 23 Chest x-ray film personally reviewed by me-cardiomegaly, questionable right- sided infiltrate EKG tracing personally reviewed by me-Prashant paced rhythm Previous testing Computed tomography scan of the abdomen-fluid collection of lower anterior abdominal wall Wound culture-Corynebacterium striatum, Klebsiella pneumoniae, Assessment: -Hypotension from acute cardiorenal syndrome -Acute lower abdominal wall fluid collection, JESSIKA drain in place, with cultures growing Klebsiella Pneumoniae and Corynebacterium Stratum., From last admission -Status post-incarcerated abdominal ventral wall hernia with small bowel, leading to repair of the same,-2 months ago -Acute on Chronic congestive heart failure from diastolic dysfunction EF 65-70%, slow to respond, remains a Lasix drip -Acute on Chronic cor pulmonale, exacerbation -Severe secondary pulmonary hypertension from CHF -Hypertensive heart disease -Moderate mitral regurgitation, severe tricuspid regurgitation, mitral valve prolapse, nontraumatic -GERD -Hyperlipidemia -Essential hypertension, history of -Primary osteoarthritis -Chronic diverticulosis -Morbid obesity BMI 54.5 -Possibly obesity hypoventilation syndrome -Biventricular pacemaker -Metabolic acidosis from acute kidney injury related -possible depression Plan: Patient encouraged to eat.. May be depressed. We'll get a psychiatry opinion. Remains on Lasix and dobutamine drip. Prognosis is guarded. Remains in the ICU. Making urine.
[2019-04-03] MEDS: CEFEPIME 2 GM in SODIUM CHLORIDE 0.9% 100 ML IVPB SCH (21:26)
[2019-04-03] MEDS: SODIUM CHLORIDE 0.9% 1,000 ML IV SCH (23:58)
--- NOTE | 2019-04-04 05:38 | PN ---
PROGRESS NOTE DATE OF SERVICE: 04/03/2019 REASON FOR FOLLOWUP: 1. Urinary tract infection. 2. Abdominal wall seroma. INTERVAL HISTORY: The patient is currently afebrile. The patient is breathing comfortably, complaining of feeling tired. No energy. Denies having any chest pain. No shortness of breath or cough. No abdominal pain. No diarrhea. PHYSICAL EXAMINATION: On examination, blood pressure is 101/67 with a pulse of 85, temperature 98. She is 95% on room air. General description is an elderly female lying in bed in no distress. RESPIRATORY SYSTEM: Unlabored breathing. Clear to auscultation anteriorly. HEART: S1, S2. Regular rate and rhythm. ABDOMEN: Soft. No tenderness. LABS: Hemoglobin is 10.3, white count 7.5, BUN of 47, creatinine 1.88. Urine with Frida albicans. Blood culture has been negative. CT of abdomen and pelvis did show decrease in size of the seroma but not complete resolution. DIAGNOSTIC IMPRESSION AND PLAN: 1. Patient with urinary tract infection. Urine with Frida albicans, covered with Diflucan. 2. Patient with abdominal wall seroma. Previous culture positive for Klebsiella. Patient is covered with cefepime. CT will be reviewed with the radiologist as the drainage catheter is likely draining and may need to have repositioning. Continue with supportive care. MMODL / IJN: [id number] /
[2019-04-04 06:11] LABS: Anisocytosis Slight; HCT 34.2 % (34.0-46.0); HGB 10.3 gm/dL (11.4-16.0); Hypochromasia Marked; MCH 28.8 pg (25.0-35.0); Macrocytosis Slight; Mean Platelet Volume 10.4; Poikilocytosis Moderate; RBC 3.56 m/uL (3.80-5.40); RDW 18.6 % (11.5-15.5); WBC 7.7 k/uL (3.8-10.6)
[2019-04-04 06:22] LABS: Calcium 8.1 mg/dL (8.4-10.2); Potassium 4.2 mmol/L (3.5-5.1)
[2019-04-04 06:28] LABS: Platelet Count 97 k/uL (150-450)
[2019-04-04] MEDS: FUROSEMIDE 100 MG in SODIUM CHLORIDE 0.9% 90 ML IV SCH ×3 (06:54→21:07)
[2019-04-04] MEDS: PANTOPRAZOLE 40 MG TABLET PO SCH (06:57)
--- NOTE | 2019-04-04 08:30 | XR ---
EXAMINATION TYPE: XR chest 1V portable DATE OF EXAM: 04/04/2019 COMPARISON: 04/03/2019 HISTORY: Congestive heart failure. Shortness of breath. TECHNIQUE: Single frontal view of the chest is obtained. FINDINGS: There is marked enlargement of the cardiomediastinal silhouette is seen on the prior with multilead left-sided cardiac device. Subclavian central venous catheter is seen on the right. Similar small layering pleural effusions and associated bibasilar airspace disease with interstitial promine nce throughout. IMPRESSION: Continued stability of the small pleural effusions and diffuse interstitial prominence, a result of cardiogenic fluid overload
[2019-04-04] MEDS: HEPARIN SODIUM,PORCINE 5,000 UNIT/ML 1 ML VIAL SQ SCH ×2 (08:53→16:28)
[2019-04-04] MEDS: METOPROLOL TARTRATE 25 MG TAB PO SCH ×2 (08:53→21:13)
[2019-04-04] MEDS: FLUCONAZOLE 100 MG TAB PO SCH (08:53)
[2019-04-04] MEDS: amLODIPine 2.5 MG TAB PO SCH (08:54)
--- NOTE | 2019-04-04 09:38 | PN ---
PROGRESS NOTE Mrs. Sheppard is in atrial fib controlled rate. She has severe right-sided failure with pulmonary hypertension and sleep apnea syndrome and chronic atrial fib with a biventricular pacemaker. She is on dobutamine and Lasix drips. We will continue this for at least another 24 hours. Urine output is decent. Creatinine has come down. Patient feels better. JVD is 2 cm. S1, S2 heard normally with irregular rate and rhythm. Short systolic murmur is audible at the base and left lower sternal border. Lungs reveal improved air entry. Abdomen is soft. Lower extremity edema has improved. IMPRESSION: 1. Sleep apnea syndrome with severe pulmonary hypertension and right heart failure. 2. Chronic atrial fibrillation. 3. Morbid obesity. 4. History of biventricular pacemaker. RECOMMENDATIONS: I am recommending that we continue the IV Lasix and dobutamine drip for now and possibly switch her to IV push Lasix tomorrow. MMODL / IJN: [id number] /
--- NOTE | 2019-04-04 11:38 | PN ---
PROGRESS NOTE The patient is seen for followup for acute kidney injury mainly cardiorenal. She has been maintained on Lasix drip and dobutamine drip. Renal function has been improving. Volume status has also improved. PHYSICAL EXAMINATION: On examination this morning, patient is comfortable. Blood pressure was 120/65, heart rate 89 per minute. Patient is afebrile. EXAMINATION OF THE HEART: S1, S2. EXAMINATION OF THE LUNGS: Decreased breath sounds at the bases. ABDOMEN: Soft, obese, nontender. Drain noted for intraabdominal abscess on previous admission. Examination lower extremities shows chronic skin changes, edema 1+ bilaterally. LABS: Labs show sodium 136, potassium 4.2, chloride 108, CO2 is 20, BUN 46, creatinine 1.84, hemoglobin 10.3 g/dL. ASSESSMENT: 1. Acute kidney injury, cardiorenal, somewhat improved. Renal function is stable since yesterday. Urine output was about 3.3 L for 24 hours. The patient is in negative balance of about 2 L. We will continue with the Lasix drip for now. 2. Metabolic acidosis secondary to renal failure, now improved. 3. Congestive heart failure acute on top of chronic mainly diastolic, ejection fraction 50% to 55%. 4. Severely dilated left atrium. 5. Recent surgery for incarcerated umbilical hernia, status post drainage of an intraabdominal abscess postoperatively. The patient still has a drain, however, output is significantly low. She has been maintained on antibiotics. Initial surgery was in January of 2019. 6. Chronic atrial fibrillation, maintained on anticoagulation. 7. Severe pulmonary hypertension. PLAN: Continue with the Lasix drip for now. Consider switching to IV push Lasix tomorrow. MMODL / IJN: [id number] /
--- NOTE | 2019-04-04 11:47 | P.PN ---
Subjective Progress Note Date: 04/04/19 Principal diagnosis: Acute on chronic diastolic congestive heart failure and hypotension, possible sepsis. 68-year-old female patient of Dr. Cooper, with past medical history of chronic congestive heart failure with diastolic dysfunction, chronic A. fib not on chronic anticoagulation for history of GI bleeding, cardiomyopathy with permanent pacemaker implantation, anxiety, depression, GERD/reflux, hypertension, hyperlipidemia, previous history of CVA, morbid obesity, gait dy sfunction. In January 2019 patient was hospitalized for acute abdominal pain and was found to have an incarcerated umbilical hernia that contained multiple bowel loops. She underwent surgery for strangulated ventral hernia repair, patient had recovered and was sent to [facility] [place] on Cipro and Flagyl for 1 week. In February while working with physical therapy there was any drainage noted from the abdominal wound, patient was hospitalized again, wound culture positive for Klebsiella pneumonia. She was treated with Unasyn, she underwent ultrasound guided continuous catheter placement for abdominal fluid collection, she was discharged back to [facility] with Rocephin infusions. On 04/01/2019 patient presented to the emergency department with low blood pressure readings, and she had been complaining of generalized weakness, fatigue 's been progressive. Patient is also admitted to shortness of breath when lying flat. She states that she had had some bilious vomiting, nausea, she had reached oral intake, denied any cough or congestion, no chest pain. Denied any diarrhea, denied any abdominal pain, umbilical percutaneous drain is still in place with small amount of bilious drainage. According to the nursing staff show blood pressures were acceptable however subsequently patient did become hypotensive with a systolic blood pressures as low as 50-80. Chest x-ray showed cardiomegaly, pulmonary venous hypertension and early interstitial edema, volume overload. EKG showed the ventricular paced rhythm, labs were reviewed showing low blood cell count of 10.8, hemoglobin of 12.1, INR 1.4, sodium is 138, potassium is 4.8, chloride is 108, CO2 17, BUN is 50 creatinine is 2.25, troponins were negative 2, proBNP was 53,200, urinalysis showed evidence of large amount of leuks, bacteria and white blood cells. Patient has received a dose of Rocephin, she has been started on dobutamine per cardiology recommendations, echocardiogram is pending, currently blood pressures have improved, 100/73, patient is in A. fib with a controlled rate, room air pulse ox is 99%. She is awaiting a bed in the intensive care unit Patient was reevaluated today on 04/02/2019, patient remains on Dobutrex, remains on Lasix drip which was recommended by cardiology. She is on 10 mg of Lasix per hour. And Dobutrex at 5 mcg/kg/m. Feeling better, breathing easier, she seems to have excellent urine output with the Lasix drip. Patient remains empirically on antibiotics, cultures are pending. Shortly after the patient arrived to the ICU yesterday, I placed a right subclavian central line, and a left brachial arterial line. Her labs today showed WBC count of 8.3 hemoglobin is 10.4, electrolytes are normal however she has slightly low bicarb of 18 and her renal functioning showed a BUN of 49 and creatinine 2.0. Slightly improved compared to yesterday, and I believe that's mostly with Dobutrex. Patient is not requiring any pressors, she is only on inotropic support. Echocardiogram showed good LV function. However she has significantly elevated right-sided ventricular systolic pressure of 1:15. She has severe mitral regurgitation and severe tricuspid regurgitation. Reevaluated today on 04/03/2019, patient remains on Lasix drip at 10 mg per hour remains on dobutamine at 5 mcg/kg/m. Continues to have excellent urine output, patient is negative over 3-1/2 L in the last 3 days. Her renal functioning is surprisingly better. Patient is on 2 L nasal cannula, comfortable, in no distress, blood pressure is marginal but not requiring any pressors. Remains mostly on inotropic support/dobutamine. WBC count is 7.5 hemoglobin is 10.3 left lites are normal BUN is down to 47 creatinine is down to 1.88. Blood cultures are negative. Urine is showing some Frida. Patient is being followed by infectious disease on the case. Reevaluated today on 04/04/2019, patient remains in the ICU, remains on the Peter X at 5 mcg/kg/m, and remains on Lasix at 10 mg per hour. Patient continues to have significant negative fluid balance, her renal functioning is continuing to improve, remains on 2 L nasal cannula, breathing is easier, and she was seen by cardiology today, I recommended that she stays on the Peter X and Lasix drip at 10 mg per hour. Patient is hemodynamically stable, not requiring any pressors. Her PICC line was checked yesterday and seems to be functional. Her CBC today showed a hemoglobin of 10.3 stable WBC count is 7.7 and a crit are normal BUN is 46 and creatinine is improving down to 1.84 from 2.25 on admission Objective - Vital Signs Vital signs: Vital Signs Temp 97.7 F 04/04/19 08:00 Pulse 89 04/04/19 09:00 Resp 23 04/04/19 09:00 BP 94/67 04/04/19 09:00 Pulse Ox 97 04/04/19 09:00 Intake & Output 04/03/19 04/04/19 04/04/19 18:59 06:59 18:59 Intake Total 612 777.241 78 Output Total 1710 1655 420 Balance -1098 -877.759 -342 Weight 125.2 kg 124.1 kg Intake: IV 362 432 78 Cefepime 2 gm In Sodium 100 Chloride 0.9% 100 ml @ 200 mls/hr IVPB Q24H DOC Rx#:[id number] Pressure bags 72 72 18 Sodium Chloride 0.9% 1, 290 260 60 000 ml @ 20 mls/hr IV . Q24H DOC Rx#:[id number] Intake, IV Titration 250 345.241 Amount DOBUTamine DRIP 500 mg In 250 245.241 Dextrose/Water 1 250ml. bag @ 5 MCG/KG/MIN 18.166 mls/hr IV .[id number] DOC Rx#:[id number] Furosemide 100 mg In 100 Sodium Chloride 0.9% 90 ml @ 10 MG/HR 10 mls/hr IV .Q10H DOC Rx#: [id number] Output: Urine 1710 1655 420 Other: Voiding Method Indwelling Catheter Indwelling Catheter Indwelling Catheter ABP, PAP, CO, CI - Last Documented Arterial Blood Pressure 109/59 - Exam Physical Exam: Revealed a 68-year-old female, morbidly obese, asymptomatic, remains on 2 L nasal cannula Head: Atraumatic, normocephalic. HEENT:[Neck is supple.] [No neck masses.] [No thyromegaly.] [No JVD.] PERRLA, EOMI, dry mucous membranes. Chest: Symmetrical chest expansion. [Clear throughout, no crackles, no rhonchi, no wheezes.] Right subclavian central line is noted. Cardiac Exam: Irregular irregular rhythm. [Normal S1 and S2, no S3 gallop, 3/6 systolic murmur thought the precordium.] Abdomen: [Soft, nontender. Morbidly obese. No hepatosplenomegaly, normal bowel sounds, no guarding or rigidity. Umbilical drain is noted, and that is to be addressed by interventional radiology today possibly will be discontinued. Extremities: [No clubbing, chronic venous stasis changes noted bilaterally with 2+ pitting edema. Right brachial PICC line is noted. Neurological Exam: Alert and oriented 3. [No focal neurologic deficit.] Psychiatric: Normal mood, affect and normal mental status examination. Skin: Chronic venous stasis changes noted in lower extremities Musculoskeletal good muscle tone, no deformities, good muscle strength bilaterally. - Labs CBC & Chem 7: 04/04/19 05:55 04/04/19 05:55 Labs: Abnormal Lab Results - Last 24 Hours (Table) 04/04/19 04/04/19 Range/Units 05:55 05:55 RBC 3.56 L (3.80-5.40) m/uL Hgb 10.3 L (11.4-16.0) gm/dL MCHC 30.0 L (31.0-37.0) g/dL RDW 18.6 H (11.5-15.5) % Plt Count 97 L (150-450) k/uL Sodium 136 L (137-145) mmol/L Chloride 108 H (98-107) mmol/L Carbon Dioxide 20 L (22-30) mmol/L BUN 46 H (7-17) mg/dL Creatinine 1.84 H (0.52-1.04) mg/dL Calcium 8.1 L (8.4-10.2) mg/dL Microbiology - Last 24 Hours (Table) 04/01/19 10:53 Blood Culture - Preliminary Blood No Growth after 48 hours Assessment and Plan Assessment: Acute on chronic diastolic congestive heart failure Acute urinary tract infection Acute kidney injury, cardiorenal, improving with inotropes. Recent history of intra-abdominal abscess requiring tube drainage. Chronic atrial fibrillation. History of incarcerated hernia repair with secondary peritonitis. Severe pulmonary hypertension Morbid obesity Moderate severe mitral regurgitation and severe tricuspid regurgitation Benign essential hypertension Chronic medical debility Obesity hypoventilation syndrome Severe osteoarthritis Dyslipidemia Recommendation: Continue to monitor in the ICU. While on Dobutrex. And while on Lasix drip. Continue Lasix drip. Continue dobutamine. Continue GI and DVT prophylaxis. Continue antibiotics. As per infectious disease on the case. Patient is now on cefepime. Continue GI and DVT prophylaxis. We'll continue to monitor. Long-term prognosis is definitely poor and guarded. Interventional radiology to address the umbilical drain and possibly discontinue it or advance it if necessary. Time with Patient: Less than 30
--- NOTE | 2019-04-04 12:21 | US ---
Ultrasound subcutaneous fluid collection with drainage catheter DATE OF EXAM: 04/04/2019 CLINICAL HISTORY: Assess catheter position Ultrasound performed bedside demonstrates a marked reduction in size the previously noted collection. The catheter is ideally situated within the collection. Approximately 3 cc of turbulent material was aspirated to confirm placement catheter. IMPRESSION: Catheter appears in good position
--- NOTE | 2019-04-04 14:01 | P.CN ---
Psychiatric Consult - . Consult date: 04/04/19 Consult:: 04/04/19 13:49 IDENTIFYING DATA: This patient is a 68-year-old female with chronic and multiple medical issues who currently lives in a house with her sister and is has no kids. HISTORY OF PRESENT ILLNESS: The patient underwent small bowel resection and repair of ventral hernia approximately 2 months ago and was admitted to the hospital on 03/20 for large fluid collection and treatment of infection and had a drain placed. Patient was presenting with shortness of breath decrease in appetite and lethargy and was placed on antibiotics and dobutamine for treatment. Patient was transferred to the ICU for management. Psychiatry was consulted for decreased interest in activities, eating and getting out of bed. Patient was seen at the bedside by report writer and was agreeable to speak. Patient spoke in a soft tone however states that she is feeling "better today" as compared to yesterday. She states that she is overwhelmed with her chronic medical conditions and spoke about having to make many decisions about her health care and her home environment and states that she is not able to care for herself at home and became dehydrated. Patient states that "I just want to be healthy that's what was making me sad". She spoke about ending up in the ICU after her bowel surgery and also going to [place] and having recurrent problems with her surgery postop care. She claims her mood is "sad" at this time and mainly correlated to her declining medical condition. She endorsed poor appetite and poor sleep at night. At this time patient denies any suicidal or homical ideations, intent or plan. Patient denies any auditory, visual hallucinations and denies any paranoia or delusions. At this time patient denies any recreational substance use or alcohol or cigarettes. PAST PSYCHIATRIC HISTORY: Patient denies any psychiatric inpatient admissions and denies being on any psychiatric medications in the past. She did state that she used to see a therapist as an outpatient approximately 3 years ago however cannot remember where. PAST MEDICAL HISTORY: GERD, hypertension, osteoarthritis, CVA in 2017, diverticulosis, H Opie, A. fib, cor pulmonale, CHF ALLERGIES: as per EMR. CHEMICAL DEPENDENCY HISTORY: as per HPI. FAMILY PSYCHIATRIC/SUBSTANCE USE HISTORY: She states that her brother had schizophrenia and her dad had depression. 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 She states that she is currently has no kids and lives with her sister in her house. MENTAL STATUS EXAM: General Appearance: Patient appears to be stated age is alert, attempts to cooperate however appears to be medically ill with marginal hygiene and grooming. Behavior: Patient is calmly lying in bed without any agitated behavior. Speech: Patient's speech is fluent and nonpressured. Soft tone of voice. Mood/Affect: Patient reports their mood is "sad", affect is congruent Suicidality/Homicidality: Patient denies having any suicidal or homicidal ideation intent or plan. Perceptions: Patient denies any visual hallucinations and denies any auditory hallucinations Though content/process: There is no evidence of any delusional thought content and thought process is linear and goal-directed. Memory and concentration: AOX3, grossly intact for the purposes of this session. Can spell "WORLD" backwards Judgment and insight: Fair IMPRESSIONS: Depressive disorder unspecified, rule out secondary to general medical conditions versus adjustment disorder with depressed mood. PLAN: -At this time patient does NOT meet criteria for inpatient psychiatric admission. -Would recommend the following medication changes/additions: We'll start Remeron 7.5 mg daily at bedtime for sleep/mood/appetite. This dose can be increased to 15 mg if patient is continuing to report poor sleep. Will hold off on any SSRIs at this time as it may negatively affect patient's bowels/stomach. -Offered support and empathy during evaluation at the bedside, as patient is dealing with multiple medical comorbidities/surgical complications and a poor quality of life which are having a direct impact on patient's mood and sleep at this time and mood/energy/sleep will likely improve with continued treatment and improvement in patient's medical condition. -Psychiatry will sign off at this point, please contact with any questions.
[2019-04-04 14:39] LABS: Color,BF Brown
[2019-04-04 14:40] LABS: Appearance,BF Cloudy; Nucleated Cells, Body Fluid 92500 /uL; RBC, Body Fluid 24500 /uL
[2019-04-04 14:43] LABS: Mononuclear WBC,Body Fluid 2 %; Polynuclear WBC,Body Fluid 97 %; Total Cells Counted,Body Fluid 100
--- NOTE | 2019-04-04 16:11 | PN ---
PROGRESS NOTE DATE OF SERVICE: 04/04/2019. REASON FOR FOLLOWUP: 1. UTI. 2. Abdominal wall seroma. INTERVAL HISTORY: The patient is currently afebrile. The patient is status post manipulation of her drainage catheter which has been advanced. Fluid seems to have been obtained for repeat cultures. The patient tolerated the procedure. Denies any chest pain. No nausea, no vomiting, no abdominal pain or diarrhea. PHYSICAL EXAMINATION: Blood pressure is 111/59 with a pulse of 96, temperature 97.7. She is 96% on 2 L nasal cannula. General description is a middle-aged female lying in bed in no distress. RESPIRATORY SYSTEM: Unlabored breathing. Clear to auscultation anteriorly. HEART: S1, S2. Regular rate and rhythm. ABDOMEN: Soft. No tenderness. LABS: White count 7.7. DIAGNOSTIC IMPRESSION AND PLAN: Patient admitted to hospital with hypertension which is likely multifactorial in this patient who did have a recent history of abdominal wall seroma that was drained. Culture was Klebsiella and Corynebacterium in a patient who is covered with Rocephin. She also has a component of UTI. The patient is currently covered with cefepime and Diflucan; to continue while waiting for the repeat urine culture to finalize. Monitor her clinical course closely. MMODL / IJN: [id number] /
[2019-04-04] MEDS: DOBUTamine DRIP 500 MG in DEXTROSE/WATER 1 250ML.BAG IV SCH (16:28)
--- NOTE | 2019-04-04 19:59 | P.PN ---
Progress Note - Text Progress Note Date: 04/04/19 Chief Complaint: Feeling unwell Interval history: This is a 68-year-old patient who follows Dr. Cooper. director foundation Dr. SHELL Dawn. extensive medical history. Chronic stable medical conditions include GERD, hyperlipidemia, hypertension, osteoarthritis, had a stroke in 2017 left her with a slow speech, diverticulosis, PTSD ,depression, CHF EF of 65-70%, chronic cor pulmonale, severe secondary pulmonary hypertension and atrial fibrillation. 2 months ago-underwent small bowel resection, repair of strangulated ventral hernia and incarcerated umbilical hernia and partial omentectomy. On March 20 admitted with abdominal pain computed tomography scan-showed a large subcutaneous fluid collection on the lower anterior abdominal wall . Drain was placed. Cultures were positive for Corynebacterium stratum and Klebsiella pneumoniae. Treat with IV ceftriaxone. Discharged on March 25 to the [facility]. Patient now presents with increasing weakness tiredness fatigue. Decreased appetite. Some shortness of breath. Increasing lower extremity swelling. The patient running low. Occasional bowel movement. Feeling tired and rundown. Initial blood pressure was in the 80s. Admitted to ICU. Started on IV fluids and dobutamine. Denies any obvious fever and chills. Admitted with-hypotension, acute kidney injury from a cardiorenal syndrome, acute on chronic cor pulmonale exacerbation. Today-. ICU. Remains weak and tired. Remains on IV Lasix drip and dobutamine drip. Good urine output. Seen by psychiatry. 4 depression. Add and Remeron. Eating small amounts. Being visited by her sister. Continues to be negative fluid balance Review of systems: Was done for constitutional, cardiovascular, GI, pulmonary. relevant finding as above Active Medications Amlodipine Besylate (Norvasc) 2.5 mg PO DAILY [facility] Last Admin: 04/04/19 08:54 Dose: 2.5 mg Documented by: Fluconazole (Diflucan) 100 mg PO DAILY [facility] Last Admin: 04/04/19 08:53 Dose: 100 mg Documented by: Heparin Sodium (Porcine) (Heparin) 5,000 unit SQ Q8HR [facility] Last Admin: 04/04/19 16:28 Dose: 5,000 unit Documented by: Sodium Chloride (Saline 0.9%) 1,000 mls @ 20 mls/hr IV .Q24H [facility] Last Admin: 01/16/20 23:58 Dose: 20 mls/hr Documented by: Dobutamine HCl/Dextrose 500 mg (/ IV Solution) 250 mls @ 18.166 mls/hr IV .[id number] [facility] Last Admin: 04/04/19 16:28 Dose: 5 mcg/kg/min, 18.166 mls/hr Documented by: Cefepime HCl 2 gm/ Sodium (Chloride) 100 mls @ 200 mls/hr IVPB Q24H [facility] Last Admin: 04/03/19 21:26 Dose: 200 mls/hr Documented by: Furosemide 100 mg/ Sodium (Chloride) 100 mls @ 10 mls/hr IV .Q10H [facility] Last Admin: 04/04/19 16:28 Dose: 10 mg/hr, 10 mls/hr Documented by: Metoprolol Tartrate (Lopressor) 25 mg PO BID [facility] Last Admin: 04/04/19 08:53 Dose: 25 mg Documented by: Mirtazapine (Remeron) 7.5 mg PO [facility] Nitroglycerin (Nitrostat) 0.4 mg SUBLINGUAL Q5M PRN PRN Reason: Chest Pain Ondansetron HCl (Zofran) 4 mg IVP Q6HR PRN PRN Reason: Nausea And Vomiting Last Admin: 04/02/19 15:47 Dose: 4 mg Documented by: Pantoprazole Sodium (Protonix) 40 mg PO AC-BRKFST [facility] Last Admin: 04/04/19 06:57 Dose: 40 mg Documented by: Tramadol HCl (Ultram) 50 mg PO Q12HR PRN PRN Reason: Pain Physical examination: VITAL SIGNS: 87, 16, 120/83, 93% on nasal cannula GENERAL: Laying in bed, but more awake today EYES: Pupils equal. Conjunctiva pale HEENT: External appearance of nose and ears normal, oral cavity grossly normal. NECK: Short and thick, JVD unable to assess; masses not palpable. HEART: Heart sounds muffled; edema present. LUNGS: Respiratory rate normal; distant breath sounds. ABDOMEN: Soft, tender, JESSIKA drain in the abdominal wall,, liver spleen not palpable, no masses palpable. Bowel sounds present PSYCH: Answering questions more awake INVESTIGATIONS, reviewed in the clinical context: White count 7.7 hemoglobin 10.3 progression 4.2 bun 46 creatinine 1.84 Previous testing White count 10.8 hemoglobin 12.1 ProTime 14.4 potassium 4.8 BUN 50 creatinine 2.25 Bun 27 creatinine 0.97 on March 23 Chest x-ray film personally reviewed by me-cardiomegaly, questionable right- sided infiltrate EKG tracing personally reviewed by me-Prashant paced rhythm Previous testing Computed tomography scan of the abdomen-fluid collection of lower anterior abdominal wall Wound culture-Corynebacterium striatum, Klebsiella pneumoniae, Assessment: -Hypotension from acute cardiorenal syndrome -Acute lower abdominal wall fluid collection, JESSIKA drain in place, with cultures growing Klebsiella Pneumoniae and Corynebacterium Stratum., From last admission -Status post-incarcerated abdominal ventral wall hernia with small bowel, leading to repair of the same,-2 months ago -Acute on Chronic congestive heart failure from diastolic dysfunction EF 65- 70%,, remains on dobutamine and Lasix drip, slow to respond -Acute on Chronic cor pulmonale, exacerbation -Severe secondary pulmonary hypertension from CHF -Hypertensive heart disease -Moderate mitral regurgitation, severe tricuspid regurgitation, mitral valve pro lapse, nontraumatic -GERD -Hyperlipidemia -Essential hypertension, history of -Primary osteoarthritis -Chronic diverticulosis -Morbid obesity BMI 54.5 -Possibly obesity hypoventilation syndrome -Biventricular pacemaker -Metabolic acidosis from acute kidney injury related -Depressive disorder unspecified Plan: Oral intake continues to report. Making good urine output. Started on Remeron as per psychiatry. Care was discussed with the patient. Continued Lasix and dobutamine drip.
[2019-04-04] MEDS: MIRTAZAPINE 15 MG TAB PO SCH (21:13)
[2019-04-04] MEDS: CEFEPIME 2 GM in SODIUM CHLORIDE 0.9% 100 ML IVPB SCH (21:14)
[2019-04-04] MEDS: SODIUM CHLORIDE 0.9% 1,000 ML IV SCH (22:30)
[2019-04-05] MEDS: HEPARIN SODIUM,PORCINE 5,000 UNIT/ML 1 ML VIAL SQ SCH ×4 (01:24→22:58)
[2019-04-05] MEDS: FUROSEMIDE 100 MG in SODIUM CHLORIDE 0.9% 90 ML IV SCH ×2 (03:10→16:30)
[2019-04-05] MEDS: DOBUTamine DRIP 500 MG in DEXTROSE/WATER 1 250ML.BAG IV SCH ×2 (03:10→04:48)
[2019-04-05 05:39] LABS: Anisocytosis Slight; HCT 35.8 % (34.0-46.0); Hypochromasia Marked; MCH 28.7 pg (25.0-35.0); MCHC 30.7 g/dL (31.0-37.0); MCV 93.5 fL (80.0-100.0); Macrocytosis Slight; Mean Platelet Volume 10.5; Platelet Count 105 k/uL (150-450); Poikilocytosis Moderate; RBC 3.83 m/uL (3.80-5.40); RDW 18.6 % (11.5-15.5); WBC 8.2 k/uL (3.8-10.6)
--- NOTE | 2019-04-05 06:29 | XR ---
EXAMINATION TYPE: XR chest 1V DATE OF EXAM: 04/05/2019 HISTORY: Follow up . REFERENCE: Previous study dated 04/04/2019. FINDINGS: A multilead pacing device is in place on the left. There is a right subclavian catheter in place. Its tip is in the superior vena cava. The heart is enlarged. There is vascular congestion and pulmonary edema. There are small, bilateral e ffusions. There is confluent bibasilar airspace disease. This may have worsened slightly. IMPRESSION: SLIGHT WORSENING IN APPEARANCE OF THE PATIENT'S PULMONARY EDEMA.
[2019-04-05 06:34] LABS: Eosinophils # (M) 0.08 k/uL (0-0.7); Lymphocytes # (M) 0.25 k/uL (1.0-4.8); Monocytes # (M) 0.82 k/uL (0-1.0); Neutrophils # (M) 7.05 k/uL (1.3-7.7); Neutrophils % (M) 86 %; Nucleated Red Blood Cells 0 /100 WBC (0-0); Total Cells Counted 100
[2019-04-05] MEDS: FLUCONAZOLE 100 MG TAB PO SCH (08:12)
[2019-04-05] MEDS: amLODIPine 2.5 MG TAB PO SCH (08:12)
[2019-04-05] MEDS: PANTOPRAZOLE 40 MG TABLET PO SCH (08:12)
[2019-04-05] MEDS: METOPROLOL TARTRATE 25 MG TAB PO SCH ×2 (08:13→20:37)
[2019-04-05] MEDS: ONDANSETRON 4 MG/2 ML VIAL IVP PRN (08:23)
--- NOTE | 2019-04-05 11:11 | P.PN ---
Subjective Progress Note Date: 04/05/19 This is 68-year-old obese female admitted because of shortness of breath and weakness hypotension. She has acute kidney injury from cardiorenal syndrome. She is responding to IV Lasix drip improved symptoms of less shortness of breath. She does have mild nausea sometimes. No chest pain. No fever chills no abdominal pain. She is a maintained IV Lasix drip at 10 mg and she may about 4 L of urine She is known with recent abdominal surgery for incarcerated umbilical hernia, atrial fibrillation CVA hypertension and cardiomyopathy. She had bowel resection cardiac catheterization in the past she had cardioversion as well Objective - Vital Signs Vital signs: Vital Signs Temp 98.5 F 04/05/19 04:00 Pulse 87 04/05/19 07:00 Resp 21 04/05/19 07:00 BP 132/70 04/05/19 07:00 Pulse Ox 91 L 04/05/19 07:00 Intake & Output 04/04/19 04/05/19 04/05/19 18:59 06:59 18:59 Intake Total 657.667 730.047 23 Output Total 1865 2615 175 Balance -1207.333 -1884.953 -152 Weight 121 kg Intake: IV 312 406 23 Cefepime 2 gm In Sodium 100 Chloride 0.9% 100 ml @ 200 mls/hr IVPB Q24H DOC Rx#:[id number] Pressure bags 72 66 3 Sodium Chloride 0.9% 1, 240 240 20 000 ml @ 20 mls/hr IV . Q24H DOC Rx#:[id number] Intake, IV Titration 345.667 324.047 Amount DOBUTamine DRIP 500 mg In 250 224.047 Dextrose/Water 1 250ml. bag @ 5 MCG/KG/MIN 18.166 mls/hr IV .[id number] DOC Rx#:[id number] Furosemide 100 mg In 95.667 100.0 Sodium Chloride 0.9% 90 ml @ 10 MG/HR 10 mls/hr IV .Q10H DOC Rx#: [id number] Output: Urine 1865 2615 175 Other: Voiding Method Indwelling Catheter Indwelling Catheter ABP, PAP, CO, CI - Last Documented Arterial Blood Pressure 100/71 Examination she is awake alert oriented. She is on nasal cannula oxygen HEENT exam no JVP neck is supple no facial asymmetry Lungs are significant for bilateral fine crackles at bases fair air entry bilaterally Heart sounds are unremarkable with normal sinus rhythm on the monitor Abdomen soft nontender obese Extremity exam was moderate edema Neurologically awake alert oriented but has generalized weakness. - Labs CBC & Chem 7: 04/05/19 05:22 04/05/19 05:22 Labs: Abnormal Lab Results - Last 24 Hours (Table) 04/05/19 04/05/19 Range/Units 05:22 05:22 Hgb 11.0 L (11.4-16.0) gm/dL MCHC 30.7 L (31.0-37.0) g/dL RDW 18.6 H (11.5-15.5) % Plt Count 105 L (150-450) k/uL Lymphocytes # (Manual) 0.25 L (1.0-4.8) k/uL Carbon Dioxide 21 L (22-30) mmol/L BUN 49 H (7-17) mg/dL Creatinine 1.71 H (0.52-1.04) mg/dL Calcium 8.0 L (8.4-10.2) mg/dL Microbiology - Last 24 Hours (Table) 04/04/19 11:45 Gram Stain - Preliminary Aspirate Body Fluid Culture - Preliminary 04/01/19 10:53 Blood Culture - Preliminary Blood No Growth after 72 hours Assessment and Plan Assessment: Impression 1. Acute kidney injury from cardiorenal syndrome. Creatinine improving to 1.71 today, from a peak of 2.25 on 04/01/2019. 2. Baseline creatinine 0.97 as of 03/23/2019 3. Mild degree of non-gap acidosis from acute kidney injury bicarb is improving to 21 4. Congestive heart failure with chest x-ray on 04/04/2019 showing the same Recommendation 1. Maintain IV Lasix drip at 10 mg an hour. 2. Watch her blood pressure she is on amlodipine 2.5, blood pressure in the 107 mm to 132 mm systolic. 3. Continue to monitor labs on a daily basis
--- NOTE | 2019-04-05 13:06 | P.PN ---
Subjective Progress Note Date: 04/05/19 Principal diagnosis: Heart failure/atrial fibrillation This is a very pleasant 68-year-old female patient with a past medical history significant for long-standing persistent atrial fibrillation, history of chronic diastolic congestive heart failure, hypertension, dyslipidemia, as well as history pacemaker, was admitted to the intensive care unit with heart failure. She was seen this morning, the chest x-ray this morning showed worsening in her heart failure. She continues to be on Lasix drip along with dobutamine. The kidney function continues to be stable. No indication that she did have any symptoms of chest pain or chest discomfort. The plan is to continue the patient on Lasix drip along with dobutamine drip for additional 24 hours. Objective - Vital Signs Vital signs: Vital Signs Temp 97.8 F 04/05/19 12:00 Pulse 80 04/05/19 12:00 Resp 16 04/05/19 12:00 BP 115/85 04/05/19 12:00 Pulse Ox 92 L 04/05/19 12:00 Intake & Output 04/04/19 04/05/19 04/05/19 18:59 06:59 18:59 Intake Total 657.667 730.047 338 Output Total 1865 2615 1325 Balance -1207.333 -1884.953 -987 Weight 121 kg Intake: IV 312 406 138 Cefepime 2 gm In Sodium 100 Chloride 0.9% 100 ml @ 200 mls/hr IVPB Q24H DOC Rx#:[id number] Pressure bags 72 66 18 Sodium Chloride 0.9% 1, 240 240 120 000 ml @ 20 mls/hr IV . Q24H DOC Rx#:[id number] Intake, IV Titration 345.667 324.047 Amount DOBUTamine DRIP 500 mg In 250 224.047 Dextrose/Water 1 250ml. bag @ 5 MCG/KG/MIN 18.166 mls/hr IV .[id number] DOC Rx#:[id number] Furosemide 100 mg In 95.667 100.0 Sodium Chloride 0.9% 90 ml @ 10 MG/HR 10 mls/hr IV .Q10H DOC Rx#: [id number] Oral 200 Output: Urine 1865 2615 1325 Other: Voiding Method Indwelling Catheter Indwelling Catheter Indwelling Catheter ABP, PAP, CO, CI - Last Documented Arterial Blood Pressure 100/71 - Constitutional General appearance: Present: no acute distress - Respiratory Respiratory: bilateral: diminished - Cardiovascular Rhythm: irregularly irregular - Labs CBC & Chem 7: 04/05/19 05:22 04/05/19 05:22 Labs: Abnormal Lab Results - Last 24 Hours (Table) 04/05/19 04/05/19 Range/Units 05:22 05:22 Hgb 11.0 L (11.4-16.0) gm/dL MCHC 30.7 L (31.0-37.0) g/dL RDW 18.6 H (11.5-15.5) % Plt Count 105 L (150-450) k/uL Lymphocytes # (Manual) 0.25 L (1.0-4.8) k/uL Carbon Dioxide 21 L (22-30) mmol/L BUN 49 H (7-17) mg/dL Creatinine 1.71 H (0.52-1.04) mg/dL Calcium 8.0 L (8.4-10.2) mg/dL Microbiology - Last 24 Hours (Table) 04/04/19 11:45 Gram Stain - Preliminary Aspirate Body Fluid Culture - Preliminary 04/01/19 10:53 Blood Culture - Preliminary Blood No Growth after 72 hours Assessment and Plan Assessment: Assessment #1 CHF exacerbation secondary to diastole dysfunction #2 long-standing persistent atrial fibrillation #3 status post permanent pacemaker #4 chronic renal failure #5 cor pulmonale #6 multiple comorbid conditions Plan #1 continue Lasix drip along with dobutamine drip #2 continue monitoring the kidney function and electrolytes #3 continue monitoring the chest x-ray #4 follow-up with the patient
--- NOTE | 2019-04-05 13:13 | P.PN ---
Subjective Progress Note Date: 04/05/19 Principal diagnosis: Acute on chronic diastolic congestive heart failure and hypotension, possible sepsis. 68-year-old female patient of Dr. Cooper, with past medical history of chronic congestive heart failure with diastolic dysfunction, chronic A. fib not on chronic anticoagulation for history of GI bleeding, cardiomyopathy with permanent pacemaker implantation, anxiety, depression, GERD/reflux, hypertension, hyperlipidemia, previous history of CVA, morbid obesity, gait dy sfunction. In January 2019 patient was hospitalized for acute abdominal pain and was found to have an incarcerated umbilical hernia that contained multiple bowel loops. She underwent surgery for strangulated ventral hernia repair, patient had recovered and was sent to [facility] [place] on Cipro and Flagyl for 1 week. In February while working with physical therapy there was any drainage noted from the abdominal wound, patient was hospitalized again, wound culture positive for Klebsiella pneumonia. She was treated with Unasyn, she underwent ultrasound guided continuous catheter placement for abdominal fluid collection, she was discharged back to [facility] with Rocephin infusions. On 04/01/2019 patient presented to the emergency department with low blood pressure readings, and she had been complaining of generalized weakness, fatigue 's been progressive. Patient is also admitted to shortness of breath when lying flat. She states that she had had some bilious vomiting, nausea, she had reached oral intake, denied any cough or congestion, no chest pain. Denied any diarrhea, denied any abdominal pain, umbilical percutaneous drain is still in place with small amount of bilious drainage. According to the nursing staff show blood pressures were acceptable however subsequently patient did become hypotensive with a systolic blood pressures as low as 50-80. Chest x-ray showed cardiomegaly, pulmonary venous hypertension and early interstitial edema, volume overload. EKG showed the ventricular paced rhythm, labs were reviewed showing low blood cell count of 10.8, hemoglobin of 12.1, INR 1.4, sodium is 138, potassium is 4.8, chloride is 108, CO2 17, BUN is 50 creatinine is 2.25, troponins were negative 2, proBNP was 53,200, urinalysis showed evidence of large amount of leuks, bacteria and white blood cells. Patient has received a dose of Rocephin, she has been started on dobutamine per cardiology recommendations, echocardiogram is pending, currently blood pressures have improved, 100/73, patient is in A. fib with a controlled rate, room air pulse ox is 99%. She is awaiting a bed in the intensive care unit Patient was reevaluated today on 04/02/2019, patient remains on Dobutrex, remains on Lasix drip which was recommended by cardiology. She is on 10 mg of Lasix per hour. And Dobutrex at 5 mcg/kg/m. Feeling better, breathing easier, she seems to have excellent urine output with the Lasix drip. Patient remains empirically on antibiotics, cultures are pending. Shortly after the patient arrived to the ICU yesterday, I placed a right subclavian central line, and a left brachial arterial line. Her labs today showed WBC count of 8.3 hemoglobin is 10.4, electrolytes are normal however she has slightly low bicarb of 18 and her renal functioning showed a BUN of 49 and creatinine 2.0. Slightly improved compared to yesterday, and I believe that's mostly with Dobutrex. Patient is not requiring any pressors, she is only on inotropic support. Echocardiogram showed good LV function. However she has significantly elevated right-sided ventricular systolic pressure of 1:15. She has severe mitral regurgitation and severe tricuspid regurgitation. Reevaluated today on 04/03/2019, patient remains on Lasix drip at 10 mg per hour remains on dobutamine at 5 mcg/kg/m. Continues to have excellent urine output, patient is negative over 3-1/2 L in the last 3 days. Her renal functioning is surprisingly better. Patient is on 2 L nasal cannula, comfortable, in no distress, blood pressure is marginal but not requiring any pressors. Remains mostly on inotropic support/dobutamine. WBC count is 7.5 hemoglobin is 10.3 left lites are normal BUN is down to 47 creatinine is down to 1.88. Blood cultures are negative. Urine is showing some Frida. Patient is being followed by infectious disease on the case. Reevaluated today on 04/04/2019, patient remains in the ICU, remains on dobutamine 5 mcg/kg/m, and remains on Lasix at 10 mg per hour. Patient continues to have significant negative fluid balance, her renal functioning is continuing to improve, remains on 2 L nasal cannula, breathing is easier, and she was seen by cardiology today, I recommended that she stays on the Peter X and Lasix drip at 10 mg per hour. Patient is hemodynamically stable, not requiring any pressors. Her PICC line was checked yesterday and seems to be functional. Her CBC today showed a hemoglobin of 10.3 stable WBC count is 7.7 and a crit are normal BUN is 46 and creatinine is improving down to 1.84 from 2.25 on admission Reevaluated today on 04/05/2019, remains in the ICU,remains on dobutamine at 5 mcg/kg/m, remains on Lasix at 10 mg per hour. Patient is feeling better, however her chest x-ray continues to show evidence of interstitial edema. Renal functioning seems to be improving. And that is mostly because of better renal perfusion while on Dobutrex. Remains in a negative fluid balance, she is over 6 L negative in the last few days. Hence I would recommend that we continue the same medications including dobutamine and Lasix drip.CBC is relatively normal electrodes are normal BUN is 49 creatinine is 1.71. Objective - Vital Signs Vital signs: Vital Signs Temp 97.8 F 04/05/19 12:00 Pulse 80 04/05/19 12:00 Resp 16 04/05/19 12:00 BP 115/85 04/05/19 12:00 Pulse Ox 92 L 04/05/19 12:00 Intake & Output 04/04/19 04/05/19 04/05/19 18:59 06:59 18:59 Intake Total 657.667 730.047 338 Output Total 1865 2615 1325 Balance -1207.333 -1884.953 -987 Weight 121 kg Intake: IV 312 406 138 Cefepime 2 gm In Sodium 100 Chloride 0.9% 100 ml @ 200 mls/hr IVPB Q24H DOC Rx#:[id number] Pressure bags 72 66 18 Sodium Chloride 0.9% 1, 240 240 120 000 ml @ 20 mls/hr IV . Q24H DOC Rx#:[id number] Intake, IV Titration 345.667 324.047 Amount DOBUTamine DRIP 500 mg In 250 224.047 Dextrose/Water 1 250ml. bag @ 5 MCG/KG/MIN 18.166 mls/hr IV .[id number] DOC Rx#:[id number] Furosemide 100 mg In 95.667 100.0 Sodium Chloride 0.9% 90 ml @ 10 MG/HR 10 mls/hr IV .Q10H [facility] Rx#: [id number] Oral 200 Output: Urine 3288 6525 1325 Other: Voiding Method Indwelling Catheter Indwelling Catheter Indwelling Catheter ABP, PAP, CO, CI - Last Documented Arterial Blood Pressure 100/71 - Exam Physical Exam: Revealed a 68-year-old female, morbidly obese, asymptomatic, remains on 3 L nasal cannula. Head: Atraumatic, normocephalic. HEENT:[Neck is supple.] [No neck masses.] [No thyromegaly.] [No JVD.] PERRLA, EOMI, dry mucous membranes. Chest: Symmetrical chest expansion. [Clear throughout, no crackles, no rhonchi, no wheezes.] Right subclavian central line is noted. Cardiac Exam: Irregular irregular rhythm. [Normal S1 and S2, no S3 gallop, 3/6 systolic murmur thought the precordium.] Abdomen: [Soft, nontender. Morbidly obese. No hepatosplenomegaly, normal bowel sounds, no guarding or rigidity. Umbilical drain is noted, and that is to be addressed by interventional radiology today possibly will be discontinued. Extremities: [No clubbing, chronic venous stasis changes noted bilaterally with 2+ pitting edema. Right brachial PICC line is noted. Neurological Exam: Alert and oriented 3. [No focal neurologic deficit.] Psychiatric: Normal mood, affect and normal mental status examination. Skin: Chronic venous stasis changes noted in lower extremities Musculoskeletal good muscle tone, no deformities, good muscle strength bilaterally. - Labs CBC & Chem 7: 04/05/19 05:22 04/05/19 05:22 Labs: Abnormal Lab Results - Last 24 Hours (Table) 04/05/19 04/05/19 Range/Units 05:22 05:22 Hgb 11.0 L (11.4-16.0) gm/dL MCHC 30.7 L (31.0-37.0) g/dL RDW 18.6 H (11.5-15.5) % Plt Count 105 L (150-450) k/uL Lymphocytes # (Manual) 0.25 L (1.0-4.8) k/uL Carbon Dioxide 21 L (22-30) mmol/L BUN 49 H (7-17) mg/dL Creatinine 1.71 H (0.52-1.04) mg/dL Calcium 8.0 L (8.4-10.2) mg/dL Microbiology - Last 24 Hours (Table) 04/01/19 10:53 Blood Culture - Preliminary Blood No Growth after 96 hours 04/04/19 11:45 Gram Stain - Preliminary Aspirate Body Fluid Culture - Preliminary Assessment and Plan Assessment: Acute on chronic diastolic congestive heart failure Acute urinary tract infection Acute kidney injury, cardiorenal, improving with inotropes. Recent history of intra-abdominal abscess requiring tube drainage. Chronic atrial fibrillation. History of incarcerated hernia repair with secondary peritonitis. Severe pulmonary hypertension Morbid obesity Moderate severe mitral regurgitation and severe tricuspid regurgitation Benign essential hypertension Chronic medical debility Obesity hypoventilation syndrome Severe osteoarthritis Dyslipidemia Recommendation: continue dobutamine and Lasix drip. Continue GI and DVT prophylaxis. Continue antibiotics. As per infectious disease on the case. Continue GI and DVT prophylaxis. We'll continue to monitor. Long-term prognosis is definitely poor and guarded. Interventional radiology addressed the umbilical drained yesterday, and it was advanced with ultrasound guidance consider switching to IV push Lasix or oral Lasix tomorrow and consider stopping Dobutrex in the next 24 hours. Time with Patient: Less than 30
[2019-04-05] MEDS: CEFEPIME 2 GM in SODIUM CHLORIDE 0.9% 100 ML IVPB SCH (20:36)
[2019-04-05] MEDS: MIRTAZAPINE 15 MG TAB PO SCH (20:38)
--- NOTE | 2019-04-05 21:58 | P.PN ---
Progress Note - Text Progress Note Date: 04/05/19 Chief Complaint: Feeling unwell Interval history: This is a 68-year-old patient who follows Dr. Cooper. medical translator Dr. SHELL Dawn. extensive medical history. Chronic stable medical conditions include GERD, hyperlipidemia, hypertension, osteoarthritis, had a stroke in 2017 left her with a slow speech, diverticulosis, PTSD ,depression, CHF EF of 65-70%, chronic cor pulmonale, severe secondary pulmonary hypertension and atrial fibrillation. 2 months ago-underwent small bowel resection, repair of strangulated ventral hernia and incarcerated umbilical hernia and partial omentectomy. On March 20 admitted with abdominal pain computed tomography scan-showed a large subcutaneous fluid collection on the lower anterior abdominal wall . Drain was placed. Cultures were positive for Corynebacterium stratum and Klebsiella pneumoniae. Treat with IV ceftriaxone. Discharged on March 25 to the [facility]. Patient now presents with increasing weakness tiredness fatigue. Decreased appetite. Some shortness of breath. Increasing lower extremity swelling. The patient running low. Occasional bowel movement. Feeling tired and rundown. Initial blood pressure was in the 80s. Admitted to ICU. Started on IV fluids and dobutamine. Denies any obvious fever and chills. Admitted with-hypotension, acute kidney injury from a cardiorenal syndrome, acute on chronic cor pulmonale exacerbation. Diagnosed with depression. Today-. ICU. Remains on IV Lasix and dobutamine drip. Remains in negative fluid balance. Close to 8 L. Oral appetite slightly better. Review of systems: Was done for constitutional, cardiovascular, GI, pulmonary. relevant finding as above Active Medications Amlodipine Besylate (Norvasc) 2.5 mg PO DAILY [facility] Last Admin: 04/05/19 08:12 Dose: 2.5 mg Documented by: Fluconazole (Diflucan) 100 mg PO DAILY [facility] Last Admin: 04/05/19 08:12 Dose: 100 mg Documented by: Heparin Sodium (Porcine) (Heparin) 5,000 unit SQ Q8HR [facility] Last Admin: 04/05/19 16:31 Dose: 5,000 unit Documented by: Sodium Chloride (Saline 0.9%) 1,000 mls @ 20 mls/hr IV .Q24H [facility] Last Admin: 04/04/19 22:30 Dose: 20 mls/hr Documented by: Dobutamine HCl/Dextrose 500 mg (/ IV Solution) 250 mls @ 18.166 mls/hr IV .[id number] [facility] Last Admin: 04/05/19 04:48 Dose: 5 mcg/kg/min, 18.166 mls/hr Documented by: Cefepime HCl 2 gm/ Sodium (Chloride) 100 mls @ 200 mls/hr IVPB Q24H [facility] Last Admin: 04/05/19 20:36 Dose: 200 mls/hr Documented by: Furosemide 100 mg/ Sodium (Chloride) 100 mls @ 10 mls/hr IV .Q10H [facility] Last Admin: 04/05/19 16:30 Dose: 10 mg/hr, 10 mls/hr Documented by: Metoprolol Tartrate (Lopressor) 25 mg PO BID [facility] Last Admin: 04/05/19 20:37 Dose: 25 mg Documented by: Mirtazapine (Remeron) 7.5 mg PO HS [facility] Last Admin: 04/05/19 20:38 Dose: 7.5 mg Documented by: Nitroglycerin (Nitrostat) 0.4 mg SUBLINGUAL Q5M PRN PRN Reason: Chest Pain Ondansetron HCl (Zofran) 4 mg IVP Q6HR PRN PRN Reason: Nausea And Vomiting Last Admin: 04/05/19 08:23 Dose: 4 mg Documented by: Pantoprazole Sodium (Protonix) 40 mg PO AC-BRKFST [facility] Last Admin: 04/05/19 08:12 Dose: 40 mg Documented by: Tramadol HCl (Ultram) 50 mg PO Q12HR PRN PRN Reason: Pain Physical examination: VITAL SIGNS: 97.6, 86, 15, 11 5/73, 92% on 2 L GENERAL: Laying in bed, awake, tired EYES: Pupils equal. Conjunctiva pale HEENT: External appearance of nose and ears normal, oral cavity grossly normal. NECK: Short and thick, JVD unable to assess; masses not palpable. HEART: Heart sounds muffled; edema decreased LUNGS: Respiratory rate normal; distant breath sounds. ABDOMEN: Soft, tender, JESSIKA drain in the abdominal wall,, liver spleen not palpable, no masses palpable. Bowel sounds present PSYCH: Answering questions INVESTIGATIONS, reviewed in the clinical context: White count 8.2 hemoglobin 11 progression for bun 49 creatinine 1.71 Previous testing White count 10.8 hemoglobin 12.1 ProTime 14.4 potassium 4.8 BUN 50 creatinine 2.25 Bun 27 creatinine 0.97 on March 23 Chest x-ray film personally reviewed by me-cardiomegaly, questionable right- sided infiltrate EKG tracing personally reviewed by me-Prashant paced rhythm Previous testing Computed tomography scan of the abdomen-fluid collection of lower anterior abdominal wall Wound culture-Corynebacterium striatum, Klebsiella pneumoniae, Assessment: -Hypotension from acute cardiorenal syndrome -Acute lower abdominal wall fluid collection, JESSIKA drain in place, with cultures growing Klebsiella Pneumoniae and Corynebacterium Stratum., From last admission -Status post-incarcerated abdominal ventral wall hernia with small bowel, leading to repair of the same,-2 months ago -Acute on Chronic congestive heart failure from diastolic dysfunction EF 65- 70%,, remains on dobutamine and Lasix drip, slow to respond -Acute on Chronic cor pulmonale, exacerbation -Severe secondary pulmonary hypertension from CHF -Hypertensive heart disease -Moderate mitral regurgitation, severe tricuspid regurgitation, mitral valve prolapse, nontraumatic -GERD -Hyperlipidemia -Essential hypertension, history of -Primary osteoarthritis -Chronic diverticulosis -Morbid obesity BMI 54.5 -Possibly obesity hypoventilation syndrome -Biventricular pacemaker -Metabolic acidosis from acute kidney injury related -Depressive disorder unspecified, started on Remeron Plan: Patient only slowly improving. Though continues to be negative fluid balance. Remains on IV Lasix and dobutamine drip. Encouraged patient to increase oral intake. Prognosis guarded.
[2019-04-05] MEDS: traMADol 50 MG TAB PO PRN (22:52)
--- NOTE | 2019-04-05 23:05 | PN ---
PROGRESS NOTE DATE OF SERVICE: 04/05/2019. REASON FOR FOLLOWUP: 1. UTI. 2. Abdominal wall seroma. INTERVAL HISTORY: The patient is currently afebrile. She has been breathing comfortably. The patient is hemodynamically stable, not requiring any pressor support. No nausea, no vomiting. No abdominal pain. No diarrhea. PHYSICAL EXAMINATION: Blood pressure is 111/55 with a pulse of 94, temperature 98. She is 96% on 2 L nasal cannula. General description is an elderly female lying in bed in no distress. RESPIRATORY SYSTEM: Unlabored breathing. Clear to auscultation anteriorly. Heart S1, S2. Regular rate and rhythm. ABDOMEN: Soft, no tenderness. EXTREMITIES: No edema of the feet. LABS: Hemoglobin is 11.1, white count 8.2, BUN of 49, and creatinine is 1.71. DIAGNOSTIC IMPRESSION AND PLAN: 1. Patient with a urinary tract infection, urine with Frida albicans with Diflucan. 2. The patient with abdominal wall seroma, previous culture, Klebsiella, status post drainage. Culture is pending. 3. Continue Cefepime. Monitor clinical course closely. MMODL / IJN: [id number] /
[2019-04-06 05:36] LABS: Anisocytosis Slight; HCT 34.8 % (34.0-46.0); HGB 10.8 gm/dL (11.4-16.0); Hypochromasia Marked; MCH 29.5 pg (25.0-35.0); MCV 95.3 fL (80.0-100.0); Macrocytosis Slight; Mean Platelet Volume 11.1; Platelet Count 108 k/uL (150-450); Poikilocytosis Moderate; RBC 3.66 m/uL (3.80-5.40); RDW 18.6 % (11.5-15.5); WBC 7.8 k/uL (3.8-10.6)
[2019-04-06 05:41] LABS: Potassium 4.2 mmol/L (3.5-5.1)
--- NOTE | 2019-04-06 05:53 | XR ---
EXAMINATION TYPE: XR chest 1V portable DATE OF EXAM: 04/06/2019 HISTORY: exertional dyspnea. REFERENCE: Previous study dated 04/05/2019. FINDINGS: The bipolar pacemaker is in place on the left. There is a right subclavian catheter in plac e. Its tip is in the right atrium. There is multichamber cardiac enlargement. There is bibasilar airspace disease. I suspect a left-side d effusion. There is vascular congestion and mild edema. There may be slight improvement in compariso n with previous study. The right hilum is prominent. I cannot exclude right hilar mass. IMPRESSION: THERE MAY BE SLIGHT IMPROVEMENT IN THE APPEARANCE OF THE CHEST.
[2019-04-06] MEDS: FUROSEMIDE 100 MG in SODIUM CHLORIDE 0.9% 90 ML IV SCH ×2 (05:58→17:40)
[2019-04-06] MEDS: SODIUM CHLORIDE 0.9% 1,000 ML IV SCH (05:58)
[2019-04-06] MEDS: DOBUTamine DRIP 500 MG in DEXTROSE/WATER 1 250ML.BAG IV SCH ×2 (05:59→22:32)
[2019-04-06] MEDS: PANTOPRAZOLE 40 MG TABLET PO SCH (06:00)
--- NOTE | 2019-04-06 07:26 | P.PN ---
Subjective Progress Note Date: 04/06/19 Principal diagnosis: Heart failure/atrial fibrillation This is a very pleasant 68-year-old female patient with a past medical history significant for long-standing persistent atrial fibrillation, history of chronic diastolic congestive heart failure, hypertension, dyslipidemia, as well as history pacemaker, was admitted to the intensive care unit with heart failure. The patient was on Lasix drip as well as dobutamine drip. She was seen today, April 062019. Overall she is feeling better. Clinically she looks better. Hemodynamically the blood pressure is marginally low and around 90 mmHg systolic. The creatinine continues to be stable. The chest x-ray was reviewed and showed some improvement. I would suggest DC the Lasix drip and start the patient on Lasix by mouth and also DC the dobutamine at this point. The patient is not on anticoagulation because of history of GI bleeding. Objective - Vital Signs Vital signs: Vital Signs Temp 98 F 04/06/19 04:30 Pulse 83 04/06/19 06:00 Resp 16 04/06/19 06:00 BP 96/86 04/06/19 06:00 Pulse Ox 93 L 04/06/19 06:00 Intake & Output 04/05/19 04/06/19 04/06/19 18:59 06:59 18:59 Intake Total 826 330 Output Total 2200 1865 Balance -1374 -1535 Weight 118 kg Intake: IV 276 230 Pressure bags 36 30 Sodium Chloride 0.9% 1, 240 200 000 ml @ 20 mls/hr IV . Q24H DOC Rx#:[id number] Intake, IV Titration 350 100 Amount DOBUTamine DRIP 500 mg In 250 Dextrose/Water 1 250ml. bag @ 5 MCG/KG/MIN 18.166 mls/hr IV .[id number] DOC Rx#:[id number] Furosemide 100 mg In 100 100 Sodium Chloride 0.9% 90 ml @ 10 MG/HR 10 mls/hr IV .Q10H DOC Rx#: [id number] Oral 200 Output: Urine 2200 1865 Other: Voiding Method Indwelling Catheter Indwelling Catheter ABP, PAP, CO, CI - Last Documented Arterial Blood Pressure 100/71 - Constitutional General appearance: Present: no acute distress - Respiratory Respiratory: bilateral: diminished - Cardiovascular Rhythm: irregularly irregular Heart sounds: normal: S1, S2 - Labs CBC & Chem 7: 04/06/19 05:07 04/06/19 05:07 Labs: Abnormal Lab Results - Last 24 Hours (Table) 04/06/19 04/06/19 Range/Units 05:07 05:07 RBC 3.66 L (3.80-5.40) m/uL Hgb 10.8 L (11.4-16.0) gm/dL RDW 18.6 H (11.5-15.5) % Plt Count 108 L (150-450) k/uL Sodium 136 L (137-145) mmol/L BUN 49 H (7-17) mg/dL Creatinine 1.68 H (0.52-1.04) mg/dL Calcium 8.0 L (8.4-10.2) mg/dL Microbiology - Last 24 Hours (Table) 04/01/19 10:53 Blood Culture - Preliminary Blood No Growth after 96 hours Assessment and Plan Assessment: Assessment #1 CHF exacerbation secondary to diastole dysfunction #2 long-standing persistent atrial fibrillation #3 status post permanent pacemaker #4 chronic renal failure #5 cor pulmonale #6 multiple comorbid conditions Plan #1 DC the Lasix drip and start the patient on Lasix by mouth #2 DC dobutamine #3 continue monitor the kidney function and electrolytes #4 follow-up with the patient
[2019-04-06] MEDS: METOPROLOL TARTRATE 25 MG TAB PO SCH ×2 (09:33→20:43)
[2019-04-06] MEDS: FLUCONAZOLE 100 MG TAB PO SCH (09:33)
[2019-04-06] MEDS: amLODIPine 2.5 MG TAB PO SCH (09:33)
[2019-04-06] MEDS: HEPARIN SODIUM,PORCINE 5,000 UNIT/ML 1 ML VIAL SQ SCH ×3 (09:33→20:44)
--- NOTE | 2019-04-06 10:14 | P.PN ---
Subjective Progress Note Date: 04/06/19 This is 68-year-old obese female admitted because of shortness of breath and weakness hypotension. She has acute kidney injury from cardiorenal syndrome. She is continuing to slowly improve. She is responding to IV Lasix drip improved symptoms of less shortness of breath. She denies any chest pain. No fever chills no abdominal pain. She is a maintained IV Lasix drip at 10 mg and she made about 4.6 L of urine She is known with recent abdominal surgery for incarcerated umbilical hernia, atrial fibrillation CVA hypertension and cardiomyopathy. She had bowel resection cardiac catheterization in the past she had cardioversion as well Objective - Vital Signs Vital signs: Vital Signs Temp 97.8 F 04/06/19 08:00 Pulse 102 H 04/06/19 09:30 Resp 21 04/06/19 09:30 BP 102/73 04/06/19 09:30 Pulse Ox 95 04/06/19 09:30 Intake & Output 04/05/19 04/06/19 04/06/19 18:59 06:59 18:59 Intake Total 826 353 69 Output Total 2200 2065 525 Balance -1460 -6661 -017 Weight 118 kg Intake: IV 276 253 69 Pressure bags 36 33 9 Sodium Chloride 0.9% 1, 240 220 60 000 ml @ 20 mls/hr IV . Q24H DOC Rx#:[id number] Intake, IV Titration 350 100 Amount DOBUTamine DRIP 500 mg In 250 Dextrose/Water 1 250ml. bag @ 5 MCG/KG/MIN 18.166 mls/hr IV .[id number] DOC Rx#:[id number] Furosemide 100 mg In 100 100 Sodium Chloride 0.9% 90 ml @ 10 MG/HR 10 mls/hr IV .Q10H [facility] Rx#: [id number] Oral 200 Output: Urine 2200 2065 525 Other: Voiding Method Indwelling Catheter Indwelling Catheter ABP, PAP, CO, CI - Last Documented Arterial Blood Pressure 100/71 Exam she is awake alert oriented. She is on nasal cannula oxygen sitting out in a chair obese. HEENT exam JVP is not noted neck is supple no facial asymmetry Lungs are significant for an occasional fine crackle at bases. Slightly harsh breath sounds Heart sounds are unremarkable she is in atrial flutter. No murmur rub gallop heard Abdomen soft nontender obese Extremity exam was moderate edema neurologically awake alert oriented - Labs CBC & Chem 7: 04/06/19 05:07 04/06/19 05:07 Labs: Abnormal Lab Results - Last 24 Hours (Table) 04/06/19 04/06/19 Range/Units 05:07 05:07 RBC 3.66 L (3.80-5.40) m/uL Hgb 10.8 L (11.4-16.0) gm/dL RDW 18.6 H (11.5-15.5) % Plt Count 108 L (150-450) k/uL Sodium 136 L (137-145) mmol/L BUN 49 H (7-17) mg/dL Creatinine 1.68 H (0.52-1.04) mg/dL Calcium 8.0 L (8.4-10.2) mg/dL Microbiology - Last 24 Hours (Table) 04/01/19 10:53 Blood Culture - Preliminary Blood No Growth after 96 hours Assessment and Plan Assessment: Impression 1. Acute kidney injury from cardiorenal syndrome. Creatinine improving to 1.68 today, from a peak of 2.25 on 04/01/2019. Urine output is 4.6 L on Lasix drip 2. Baseline creatinine 0.97 as of 03/23/2019 3. Mild degree of non-gap acidosis from acute kidney injury bicarb is improving to 21 to 25 4. Congestive heart failure with chest x-ray on 04/04/2019 showing radiological improvement Recommendation 1. Maintain IV Lasix drip at 10 mg an hour. 2. Maintain dobutamine 2. Watch her blood pressure she is on amlodipine 2.5, blood pressure in the 102 mm to 138 mm systolic. 3. Continue to monitor labs on a daily basis
--- NOTE | 2019-04-06 13:31 | P.PN ---
Subjective Progress Note Date: 04/06/19 Principal diagnosis: Acute on chronic diastolic congestive heart failure and hypotension, possible sepsis. 68-year-old female patient of Dr. Cooper, with past medical history of chronic congestive heart failure with diastolic dysfunction, chronic A. fib not on chronic anticoagulation for history of GI bleeding, cardiomyopathy with permanent pacemaker implantation, anxiety, depression, GERD/reflux, hypertension, hyperlipidemia, previous history of CVA, morbid obesity, gait dy sfunction. In January 2019 patient was hospitalized for acute abdominal pain and was found to have an incarcerated umbilical hernia that contained multiple bowel loops. She underwent surgery for strangulated ventral hernia repair, patient had recovered and was sent to [facility] [place] on Cipro and Flagyl for 1 week. In February while working with physical therapy there was any drainage noted from the abdominal wound, patient was hospitalized again, wound culture positive for Klebsiella pneumonia. She was treated with Unasyn, she underwent ultrasound guided continuous catheter placement for abdominal fluid collection, she was discharged back to [facility] with Rocephin infusions. On 04/01/2019 patient presented to the emergency department with low blood pressure readings, and she had been complaining of generalized weakness, fatigue 's been progressive. Patient is also admitted to shortness of breath when lying flat. She states that she had had some bilious vomiting, nausea, she had reached oral intake, denied any cough or congestion, no chest pain. Denied any diarrhea, denied any abdominal pain, umbilical percutaneous drain is still in place with small amount of bilious drainage. According to the nursing staff show blood pressures were acceptable however subsequently patient did become hypotensive with a systolic blood pressures as low as 50-80. Chest x-ray showed cardiomegaly, pulmonary venous hypertension and early interstitial edema, volume overload. EKG showed the ventricular paced rhythm, labs were reviewed showing low blood cell count of 10.8, hemoglobin of 12.1, INR 1.4, sodium is 138, potassium is 4.8, chloride is 108, CO2 17, BUN is 50 creatinine is 2.25, troponins were negative 2, proBNP was 53,200, urinalysis showed evidence of large amount of leuks, bacteria and white blood cells. Patient has received a dose of Rocephin, she has been started on dobutamine per cardiology recommendations, echocardiogram is pending, currently blood pressures have improved, 100/73, patient is in A. fib with a controlled rate, room air pulse ox is 99%. She is awaiting a bed in the intensive care unit Patient was reevaluated today on 04/02/2019, patient remains on Dobutrex, remains on Lasix drip which was recommended by cardiology. She is on 10 mg of Lasix per hour. And Dobutrex at 5 mcg/kg/m. Feeling better, breathing easier, she seems to have excellent urine output with the Lasix drip. Patient remains empirically on antibiotics, cultures are pending. Shortly after the patient arrived to the ICU yesterday, I placed a right subclavian central line, and a left brachial arterial line. Her labs today showed WBC count of 8.3 hemoglobin is 10.4, electrolytes are normal however she has slightly low bicarb of 18 and her renal functioning showed a BUN of 49 and creatinine 2.0. Slightly improved compared to yesterday, and I believe that's mostly with Dobutrex. Patient is not requiring any pressors, she is only on inotropic support. Echocardiogram showed good LV function. However she has significantly elevated right-sided ventricular systolic pressure of 1:15. She has severe mitral regurgitation and severe tricuspid regurgitation. Reevaluated today on 04/03/2019, patient remains on Lasix drip at 10 mg per hour remains on dobutamine at 5 mcg/kg/m. Continues to have excellent urine output, patient is negative over 3-1/2 L in the last 3 days. Her renal functioning is surprisingly better. Patient is on 2 L nasal cannula, comfortable, in no distress, blood pressure is marginal but not requiring any pressors. Remains mostly on inotropic support/dobutamine. WBC count is 7.5 hemoglobin is 10.3 left lites are normal BUN is down to 47 creatinine is down to 1.88. Blood cultures are negative. Urine is showing some Frida. Patient is being followed by infectious disease on the case. Reevaluated today on 04/04/2019, patient remains in the ICU, remains on dobutamine 5 mcg/kg/m, and remains on Lasix at 10 mg per hour. Patient continues to have significant negative fluid balance, her renal functioning is continuing to improve, remains on 2 L nasal cannula, breathing is easier, and she was seen by cardiology today, I recommended that she stays on the Peter X and Lasix drip at 10 mg per hour. Patient is hemodynamically stable, not requiring any pressors. Her PICC line was checked yesterday and seems to be functional. Her CBC today showed a hemoglobin of 10.3 stable WBC count is 7.7 and a crit are normal BUN is 46 and creatinine is improving down to 1.84 from 2.25 on admission Reevaluated today on 04/05/2019, remains in the ICU,remains on dobutamine at 5 mcg/kg/m, remains on Lasix at 10 mg per hour. Patient is feeling better, however her chest x-ray continues to show evidence of interstitial edema. Renal functioning seems to be improving. And that is mostly because of better renal perfusion while on Dobutrex. Remains in a negative fluid balance, she is over 6 L negative in the last few days. Hence I would recommend that we continue the same medications including dobutamine and Lasix drip.CBC is relatively normal electrodes are normal BUN is 49 creatinine is 1.71. Reevaluated today on 04/06/2019, patient remains in the ICU, remains on dobutamine and Lasix drip. However today I cut down the dose of dobutamine to 2.5 mcg/kg/m, and I cut down the Lasix to 5 mg per hour. Patient is clinically better, breathing easier, chest x-ray is showing improvement in her pulmonary edema, and her renal functioning seems to be steadily improving with Dobutrex. Patient remains in a negative fluid balance. Objective - Vital Signs Vital signs: Vital Signs Temp 97.8 F 04/06/19 08:00 Pulse 93 04/06/19 10:30 Resp 14 04/06/19 10:30 BP 113/76 04/06/19 10:30 Pulse Ox 91 L 04/06/19 10:30 Intake & Output 04/05/19 04/06/19 04/06/19 18:59 06:59 18:59 Intake Total 826 353 69 Output Total 2200 4715 525 Balance -3388 -4642 -979 Weight 118 kg Intake: IV 276 253 69 Pressure bags 36 33 9 Sodium Chloride 0.9% 1, 240 220 60 000 ml @ 20 mls/hr IV . Q24H [facility] Rx#:[id number] Intake, IV Titration 350 100 Amount DOBUTamine DRIP 500 mg In 250 Dextrose/Water 1 250ml. bag @ 5 MCG/KG/MIN 18.166 mls/hr IV .[id number] DOC Rx#:[id number] Furosemide 100 mg In 100 100 Sodium Chloride 0.9% 90 ml @ 10 MG/HR 10 mls/hr IV .Q10H DOC Rx#: [id number] Oral 200 Output: Urine 2200 2065 525 Other: Voiding Method Indwelling Catheter Indwelling Catheter ABP, PAP, CO, CI - Last Documented Arterial Blood Pressure 100/71 - Exam Physical Exam: Revealed a 68-year-old female, morbidly obese, asymptomatic, remains on 2 L nasal cannula Head: Atraumatic, normocephalic. HEENT:[Neck is supple.] [No neck masses.] [No thyromegaly.] [No JVD.] PERRLA, EOMI, dry mucous membranes. Chest: Symmetrical chest expansion. [Clear throughout, no crackles, no rhonchi, no wheezes.] Right subclavian central line is noted. Cardiac Exam: Irregular irregular rhythm. [Normal S1 and S2, no S3 gallop, 3/6 systolic murmur thought the precordium.] Abdomen: [Soft, nontender. Morbidly obese. No hepatosplenomegaly, normal bowel sounds, no guarding or rigidity. Umbilical drain is noted, and that is to be addressed by interventional radiology today possibly will be discontinued. Extremities: [No clubbing, chronic venous stasis changes noted bilaterally with 2+ pitting edema. Right brachial PICC line is noted. Neurological Exam: Alert and oriented 3. [No focal neurologic deficit.] Psychiatric: Normal mood, affect and normal mental status examination. Skin: Chronic venous stasis changes noted in lower extremities Musculoskeletal good muscle tone, no deformities, good muscle strength bilaterally. - Labs CBC & Chem 7: 04/06/19 05:07 04/06/19 05:07 Labs: Abnormal Lab Results - Last 24 Hours (Table) 04/06/19 04/06/19 Range/Units 05:07 05:07 RBC 3.66 L (3.80-5.40) m/uL Hgb 10.8 L (11.4-16.0) gm/dL RDW 18.6 H (11.5-15.5) % Plt Count 108 L (150-450) k/uL Sodium 136 L (137-145) mmol/L BUN 49 H (7-17) mg/dL Creatinine 1.68 H (0.52-1.04) mg/dL Calcium 8.0 L (8.4-10.2) mg/dL Microbiology - Last 24 Hours (Table) 04/01/19 10:53 Blood Culture - Preliminary Blood No Growth after 120 hours Assessment and Plan Assessment: Acute on chronic diastolic congestive heart failure Acute urinary tract infection Acute kidney injury, cardiorenal, improving with inotropes. Recent history of intra-abdominal abscess requiring tube drainage. This was readjusted by interventional radiology 2 days ago Chronic atrial fibrillation. History of incarcerated hernia repair with secondary peritonitis. Severe pulmonary hypertension Morbid obesity Moderate severe mitral regurgitation and severe tricuspid regurgitation Benign essential hypertension Chronic medical debility Obesity hypoventilation syndrome Severe osteoarthritis Dyslipidemia Recommendation: continue dobutamine and Lasix drip. However I cut down the dose to 5 mg of Lasix per hour and dobutamine to 2.5 mcg/kg/h Continue GI and DVT prophylaxis. Continue antibiotics. Continue GI and DVT prophylaxis. Consider transferring the patient to a monitor bed on selective once a bed becomes available. Long-term prognosis is definitely poor and guarded. Consider stopping Lasix and Dobutrex tomorrow and switching to oral Lasix at least 80 mg twice a day. We'll continue to follow. Updated her on her condition Time with Patient: Less than 30
--- NOTE | 2019-04-06 18:24 | P.PN ---
Progress Note - Text Progress Note Date: 04/06/19 Chief Complaint: Feeling unwell Interval history: This is a 68-year-old patient who follows Dr. Cooper. administration clerk Dr. SHELL Dawn. extensive medical history. Chronic stable medical conditions include GERD, hyperlipidemia, hypertension, osteoarthritis, had a stroke in 2017 left her with a slow speech, diverticulosis, PTSD ,depression, CHF EF of 65-70%, chronic cor pulmonale, severe secondary pulmonary hypertension and atrial fibrillation. 2 months ago-underwent small bowel resection, repair of strangulated ventral hernia and incarcerated umbilical hernia and partial omentectomy. On March 20 admitted with abdominal pain computed tomography scan-showed a large subcutaneous fluid collection on the lower anterior abdominal wall . Drain was placed. Cultures were positive for Corynebacterium stratum and Klebsiella pneumoniae. Treat with IV ceftriaxone. Discharged on March 25 to the [facility]. Patient now presents with increasing weakness tiredness fatigue. Decreased appetite. Some shortness of breath. Increasing lower extremity swelling. The patient running low. Occasional bowel movement. Feeling tired and rundown. Initial blood pressure was in the 80s. Admitted to ICU. Started on IV fluids and dobutamine. Denies any obvious fever and chills. Admitted with-hypotension, acute kidney injury from a cardiorenal syndrome, acute on chronic cor pulmonale exacerbation. Diagnosed with depression. Today-. ICU. Dose of Lasix drip decreased to 5 mg an hour and dobutamine decreased to 2.5 g an hour. Urine output good. Eating about 25%. Has had visitors. A bit more perky.. Review of systems: Was done for constitutional, cardiovascular, GI, pulmonary. relevant finding as above Active Medications Amlodipine Besylate (Norvasc) 2.5 mg PO DAILY [facility] Last Admin: 04/06/19 09:33 Dose: 2.5 mg Documented by: Fluconazole (Diflucan) 100 mg PO DAILY [facility] Last Admin: 04/06/19 09:33 Dose: 100 mg Documented by: Heparin Sodium (Porcine) (Heparin) 5,000 unit SQ Q8HR [facility] Last Admin: 04/06/19 16:38 Dose: 5,000 unit Documented by: Sodium Chloride (Saline 0.9%) 1,000 mls @ 20 mls/hr IV .Q24H [facility] Last Admin: 04/06/19 05:58 Dose: 20 mls/hr Documented by: Dobutamine HCl/Dextrose 500 mg (/ IV Solution) 250 mls @ 9.083 mls/hr IV .Q24H [facility] Last Admin: 04/06/19 05:59 Dose: 5 mcg/kg/min, 18.166 mls/hr Documented by: Cefepime HCl 2 gm/ Sodium (Chloride) 100 mls @ 200 mls/hr IVPB Q24H [facility] Last Admin: 04/05/19 20:36 Dose: 200 mls/hr Documented by: Furosemide 100 mg/ Sodium (Chloride) 100 mls @ 5 mls/hr IV .Q20H [facility] Last Admin: 04/06/19 17:40 Dose: Not Given Documented by: Metoprolol Tartrate (Lopressor) 25 mg PO BID [facility] Last Admin: 04/06/19 09:33 Dose: 25 mg Documented by: Mirtazapine (Remeron) 7.5 mg PO HS [facility] Last Admin: 04/05/19 20:38 Dose: 7.5 mg Documented by: Nitroglycerin (Nitrostat) 0.4 mg SUBLINGUAL Q5M PRN PRN Reason: Chest Pain Ondansetron HCl (Zofran) 4 mg IVP Q6HR PRN PRN Reason: Nausea And Vomiting Last Admin: 04/05/19 08:23 Dose: 4 mg Documented by: Pantoprazole Sodium (Protonix) 40 mg PO AC-BRKFST [facility] Last Admin: 04/06/19 06:00 Dose: 40 mg Documented by: Tramadol HCl (Ultram) 50 mg PO Q12HR PRN PRN Reason: Pain Last Admin: 04/05/19 22:52 Dose: 50 mg Documented by: Physical examination: VITAL SIGNS: 97.9, 80, 15, 104/68, 93% on 2 L GENERAL: Laying in bed, awake, tired EYES: Pupils equal. Conjunctiva pale HEENT: External appearance of nose and ears normal, oral cavity grossly normal. NECK: Short and thick, JVD unable to assess; masses not palpable. HEART: Heart sounds muffled; edema decreased LUNGS: Respiratory rate normal; distant breath sounds. ABDOMEN: Soft, tender, JESSIKA drain in the abdominal wall,, liver spleen not palpable, no masses palpable. Bowel sounds present PSYCH: Answering questions INVESTIGATIONS, reviewed in the clinical context: White count 7.8 hemoglobin 10.8 pressure 4.2 bun 49 creatinine 1.68 Previous testing White count 10.8 hemoglobin 12.1 ProTime 14.4 potassium 4.8 BUN 50 creatinine 2.25 Bun 27 creatinine 0.97 on March 23 Chest x-ray film personally reviewed by me-cardiomegaly, questionable right- sided infiltrate EKG tracing personally reviewed by me-Prashant paced rhythm Previous testing Computed tomography scan of the abdomen-fluid collection of lower anterior abdominal wall Wound culture-Corynebacterium striatum, Klebsiella pneumoniae, Assessment: -Hypotension from acute cardiorenal syndrome -Acute lower abdominal wall fluid collection, JESSIKA drain in place, with cultures growing Klebsiella Pneumoniae and Corynebacterium Stratum., From last admission -Status post-incarcerated abdominal ventral wall hernia with small bowel, leading to repair of the same, -Acute on Chronic congestive heart failure from diastolic dysfunction EF 65- 70%,, remains on dobutamine and Lasix drip, dose decreased -Acute on Chronic cor pulmonale, exacerbation -Severe secondary pulmonary hypertension from CHF -Hypertensive heart disease -Moderate mitral regurgitation, severe tricuspid regurgitation, mitral valve prolapse, nontraumatic -GERD -Hyperlipidemia -Essential hypertension, history of -Primary osteoarthritis -Chronic diverticulosis -Morbid obesity BMI 54.5 -Possibly obesity hypoventilation syndrome -Biventricular pacemaker -Metabolic acidosis from acute kidney injury related -Depressive disorder unspecified, started on Remeron Plan: Dose of both Lasix drip and dobutamine was decreased. Good urine output. Patient be moved out of ICU. Oral prognosis guarded.
[2019-04-06] MEDS: MIRTAZAPINE 15 MG TAB PO SCH (20:44)
[2019-04-06] MEDS: CEFEPIME 2 GM in SODIUM CHLORIDE 0.9% 100 ML IVPB SCH (20:45)
--- NOTE | 2019-04-06 22:34 | PN ---
PROGRESS NOTE DATE OF SERVICE: 04/06/2019 REASON FOR FOLLOWUP: 1. UTI. 2. Abdominal wall seroma. INTERVAL HISTORY: The patient is currently afebrile. The patient is breathing comfortably. Denies having any chest pain or any cough. No nausea, vomiting. No abdominal pain. No diarrhea. PHYSICAL EXAMINATION: Blood pressure 113/76, pulse of 84. Temperature 97.6. She is 92% on 2 L nasal cannula. General description is an elderly female lying in bed in no distress. Respiratory system: Unlabored breathing. Clear to auscultation anteriorly. Heart S1, S2. Regular rate and rhythm. ABDOMEN: Soft. No tenderness. LABS: Hemoglobin is 10.1, white count 7.8. BUN of 49, creatinine 1.68. DIAGNOSTIC IMPRESSION AND PLAN: Patient admitted to the hospital with hypertension, which is likely multifactorial in this patient who did have possible cardiac source as overall improvement with dobutamine. Currently doubt sepsis in patient with no fever or elevated white count. The patient did have positive while she is covered with Diflucan and abdominal wall fluid collection, status post readjustment of the catheter, cultures pending. Continue cefepime and Diflucan and monitor clinical course closely. MMODL / IJN: [id number] /
[2019-04-07] MEDS: SODIUM CHLORIDE 0.9% 1,000 ML IV SCH (05:15)
[2019-04-07] MEDS: PANTOPRAZOLE 40 MG TABLET PO SCH (05:18)
[2019-04-07] MEDS: traMADol 50 MG TAB PO PRN (05:19)
[2019-04-07 08:24] LABS: Calcium 8.3 mg/dL (8.4-10.2); Magnesium 1.6 mg/dL (1.6-2.3); Potassium 4.2 mmol/L (3.5-5.1)
[2019-04-07] MEDS: FUROSEMIDE 100 MG in SODIUM CHLORIDE 0.9% 90 ML IV SCH ×3 (08:42→20:04)
[2019-04-07] MEDS: FLUCONAZOLE 100 MG TAB PO SCH (08:49)
[2019-04-07] MEDS: amLODIPine 2.5 MG TAB PO SCH (08:49)
[2019-04-07] MEDS: METOPROLOL TARTRATE 25 MG TAB PO SCH ×2 (08:49→20:04)
[2019-04-07] MEDS: HEPARIN SODIUM,PORCINE 5,000 UNIT/ML 1 ML VIAL SQ SCH ×2 (08:50→17:08)
--- NOTE | 2019-04-07 09:13 | P.PN ---
Subjective Patient is seen in follow-up for acute kidney injury. Renal function is fairly stable. Creatinine 1.65 today. Still quite edematous. She is maintained on Lasix drip at 5 mL an hour along with dobutamine. She is nonoliguric. Oral intake is fair. Denies vomiting or diarrhea. Vital signs are stable. General: The patient appeared well nourished and normally developed. HEENT: Head exam is unremarkable. Neck is without jugular venous distension. LUNGS: Breath sounds decreased. HEART: Rate and Rhythm are regular. First and second heart sounds normal. No murmurs, rubs or gallops. ABDOMEN: Abdominal exam reveals normal bowel sounds. Non-tender and non- distended. EXTREMITITES: 2+ edema. Objective - Vital Signs Vital signs: Vital Signs Temp 97.4 F L 04/07/19 08:00 Pulse 92 04/07/19 08:00 Resp 18 04/07/19 08:00 BP 108/73 04/07/19 08:00 Pulse Ox 100 04/07/19 08:00 Intake & Output 04/06/19 04/07/19 04/07/19 18:59 06:59 18:59 Intake Total 184 705 Output Total 1690 3215 Balance -1506 -2510 Weight 121 kg Intake: IV 184 200 Cefepime 2 gm In Sodium 200 Chloride 0.9% 100 ml @ 200 mls/hr IVPB Q24H DOC Rx#:[id number] Pressure bags 24 Sodium Chloride 0.9% 1, 160 000 ml @ 20 mls/hr IV . Q24H DOC Rx#:[id number] Intake, IV Titration 505 Amount Cefepime 2 gm In Sodium 200 Chloride 0.9% 100 ml @ 200 mls/hr IVPB Q24H DOC Rx#:[id number] DOBUTamine DRIP 500 mg In 250 Dextrose/Water 1 250ml. bag @ 2.5 MCG/KG/MIN 9. 083 mls/hr IV .Q24H DOC Rx#:[id number] Furosemide 100 mg In 15 Sodium Chloride 0.9% 90 ml @ 5 MG/HR 5 mls/hr IV .Q20H DOC Rx#:[id number] Sodium Chloride 0.9% 1, 40 000 ml @ 20 mls/hr IV . Q24H DOC Rx#:[id number] Output: Drainage 15 Left Upper Abdomen 15 Urine 1690 3200 Other: Voiding Method Indwelling Catheter Indwelling Catheter Indwelling Catheter ABP, PAP, CO, CI - Last Documented Arterial Blood Pressure 100/71 - Labs CBC & Chem 7: 04/06/19 05:07 04/07/19 05:27 Labs: Abnormal Lab Results - Last 24 Hours (Table) 04/07/19 04/07/19 Range/Units 05:27 05:27 BUN 51 H (7-17) mg/dL Creatinine 1.65 H (0.52-1.04) mg/dL Calcium 8.3 L (8.4-10.2) mg/dL C-Reactive Protein 69.0 H (<10.0) mg/L Microbiology - Last 24 Hours (Table) 04/04/19 11:45 Gram Stain - Preliminary Aspirate Body Fluid Culture - Preliminary Gram Positive Bacilli Isolated 04/01/19 10:53 Blood Culture - Preliminary Blood No Growth after 120 hours Assessment and Plan Plan: Assessment: 1. Acute kidney injury mostly prerenal secondary to cardiorenal syndrome. Renal function stable. Creatinine 1.65 today. 2. Volume overload. 3. Acute on chronic diastolic CHF with severe mitral and tricuspid regurgitation. 4. Severe pulmonary hypertension. 5. Intra-abdominal abscess requiring tube drainage. Maintained on IV anti biotics. 6. Hypomagnesemia secondary to diuresis. Plan: Increase Lasix drip to 10 mL an hour for 24 hours. Continue to monitor renal function and urine output. Replace magnesium 2 g IV today. Repeat electrolytes in the morning.
[2019-04-07] MEDS: MAGNESIUM SULFATE-D5W PMX 1 GM in DEXTROSE/WATER 1 100ML.BAG IVPB SCH ×2 (10:32→11:40)
--- NOTE | 2019-04-07 12:02 | P.PN ---
Subjective Progress Note Date: 04/07/19 This is a very pleasant 68-year-old female patient with a past medical history significant for long-standing persistent atrial fibrillation, history of chronic diastolic congestive heart failure, hypertension, dyslipidemia, as well as history pacemaker, was admitted to the intensive care unit with heart failure. The patient was on Lasix drip as well as dobutamine drip. The Lasix drip was discontinued and patient was changed over to oral diuretics which she is on today. Appears that the patient is still on IV dobutamine. Patient is not on oral anticoagulation because of GI bleeding. Objective - Vital Signs Vital signs: Vital Signs Temp 97.4 F L 04/07/19 08:00 Pulse 92 04/07/19 08:00 Resp 18 04/07/19 08:00 BP 108/73 04/07/19 08:00 Pulse Ox 100 04/07/19 08:00 Intake & Output 04/06/19 04/07/19 04/07/19 18:59 06:59 18:59 Intake Total 284 705 Output Total 1690 3215 Balance -1406 -2510 Weight 121 kg Intake: IV 184 200 Cefepime 2 gm In Sodium 200 Chloride 0.9% 100 ml @ 200 mls/hr IVPB Q24H DOC Rx#:[id number] Pressure bags 24 Sodium Chloride 0.9% 1, 160 000 ml @ 20 mls/hr IV . Q24H DOC Rx#:[id number] Intake, IV Titration 100 505 Amount Cefepime 2 gm In Sodium 200 Chloride 0.9% 100 ml @ 200 mls/hr IVPB Q24H DOC Rx#:[id number] DOBUTamine DRIP 500 mg In 250 Dextrose/Water 1 250ml. bag @ 2.5 MCG/KG/MIN 9. 083 mls/hr IV .Q24H DOC Rx#:[id number] Furosemide 100 mg In 100 15 Sodium Chloride 0.9% 90 ml @ 5 MG/HR 5 mls/hr IV .Q20H DOC Rx#:[id number] Sodium Chloride 0.9% 1, 40 000 ml @ 20 mls/hr IV . Q24H DOC Rx#:[id number] Output: Drainage 15 Left Upper Abdomen 15 Urine 1690 3200 Other: Voiding Method Indwelling Catheter Indwelling Catheter Indwelling Catheter ABP, PAP, CO, CI - Last Documented Arterial Blood Pressure 100/71 - Exam Physical Exam: Revealed a 68-year-old female, morbidly obese, asymptomatic, remains on 2 L nasal cannula Head: Atraumatic, normocephalic. HEENT:[Neck is supple.] [No neck masses.] [No thyromegaly.] [No JVD.] PERRLA, EOMI, dry mucous membranes. Chest: Symmetrical chest expansion. [Clear throughout, no crackles, no rhonchi, no wheezes.] Right subclavian central line is noted. Cardiac Exam: Irregular irregular rhythm. [Normal S1 and S2, no S3 gallop, 3/6 systolic murmur thought the precordium.] Abdomen: [Soft, nontender. Morbidly obese. No hepatosplenomegaly, normal bowel sounds, no guarding or rigidity. Umbilical drain is noted, and that is to be addressed by interventional radiology today possibly will be discontinued. Extremities: [No clubbing, chronic venous stasis changes noted bilaterally with 2+ pitting edema. Right brachial PICC line is noted. Neurological Exam: Alert and oriented 3. [No focal neurologic deficit.] Psychiatric: Normal mood, affect and normal mental status examination. Skin: Chronic venous stasis changes noted in lower extremities Musculoskeletal good muscle tone, no deformities, good muscle strength bilaterally. - Labs CBC & Chem 7: 04/06/19 05:07 04/07/19 05:27 Labs: Abnormal Lab Results - Last 24 Hours (Table) 04/07/19 04/07/19 Range/Units 05:27 05:27 BUN 51 H (7-17) mg/dL Creatinine 1.65 H (0.52-1.04) mg/dL Calcium 8.3 L (8.4-10.2) mg/dL C-Reactive Protein 69.0 H (<10.0) mg/L Microbiology - Last 24 Hours (Table) 04/04/19 11:45 Gram Stain - Preliminary Aspirate Body Fluid Culture - Preliminary Gram Positive Bacilli Isolated 04/01/19 10:53 Blood Culture - Preliminary Blood No Growth after 120 hours Assessment and Plan Plan: Assessment andPlan: 1 diastolic congestive heart failure acute on chronic 2 hypotension,Currently improved after receiving mild IV fluids 3 Nonischemic cardiomyopathy 4 acute on chronic kidney injury 5 morbid obesity with a BMI of 46.1 6 Cor pulmonale with severe pulmonary hypertension and right-sided heart failure 7 non-rheumatologic mitral regurgitation moderate in severity and severe tricuspid regurgitation 8 hyperlipidemia 9 hypertension 10 acid reflux 11 severe osteoarthritis 12 chronic diverticulosis 13 chronic obesity hypoventilation syndrome/obstructive sleep apnea. 14 chronic medical deconditioning 15 bi-V pacemaker Plan We will discontinue the IV dobutamine and continue the patient on her other current medications. DNP note has been reviewed, I agree with a documented findings and plan of care. Patient was seen and examined.
--- NOTE | 2019-04-07 15:13 | P.PN ---
Subjective Progress Note Date: 04/07/19 Principal diagnosis: Acute exacerbation of diastolic congestive heart failure 68-year-old female patient of Dr. Cooper, with past medical history of chronic congestive heart failure with diastolic dysfunction, chronic A. fib not on chronic anticoagulation for history of GI bleeding, cardiomyopathy with permanent pacemaker implantation, anxiety, depression, GERD/reflux, hypert ension, hyperlipidemia, previous history of CVA, morbid obesity, gait dysfunction. In January 2019 patient was hospitalized for acute abdominal pain and was found to have an incarcerated umbilical hernia that contained multiple bowel loops. She underwent surgery for strangulated ventral hernia repair, patient had recovered and was sent to [facility] on Cipro and Flagyl for 1 week. In February while working with physical therapy there was any drainage noted from the abdominal wound, patient was hospitalized again, wound culture positive for Klebsiella pneumonia. She was treated with Unasyn, she underwent ultrasound guided continuous catheter placement for abdominal fluid collection, she was discharged back to [facility] with Rocephin infusions. On 04/01/2019 patient presented to the emergency department with low blood pressure readings, and she had been complaining of generalized weakness, fatigue 's been progressive. Patient is also admitted to shortness of breath when lying flat. She states that she had had some bilious vomiting, nausea, she had reached oral intake, denied any cough or congestion, no chest pain. Denied any diarrhea, denied any abdominal pain, umbilical percutaneous drain is still in place with small amount of bilious drainage. According to the nursing staff show blood pressures were acceptable however subsequently patient did become hypotensive with a systolic blood pressures as low as 50-80. Chest x-ray showed cardiomegaly, pulmonary venous hypertension and early interstitial edema, volume overload. EKG showed the ventricular paced rhythm, labs were reviewed showing low blood cell count of 10.8, hemoglobin of 12.1, INR 1.4, sodium is 138, potassium is 4.8, chloride is 108, CO2 17, BUN is 50 creatinine is 2.25, troponins were negative 2, proBNP was 53,200, urinalysis showed evidence of large amount of leuks, bacteria and white blood cells. Patient has received a dose of Rocephin, she has been started on dobutamine per cardiology recommendations, echocardiogram is pending, currently blood pressures have improved, 100/73, patient is in A. fib with a controlled rate, room air pulse ox is 99%. She is awaiting a bed in the intensive care unit Patient was reevaluated today on 04/02/2019, patient remains on Dobutrex, remains on Lasix drip which was recommended by cardiology. She is on 10 mg of Lasix per hour. And Dobutrex at 5 mcg/kg/m. Feeling better, breathing easier, she seems to have excellent urine output with the Lasix drip. Patient remains empirically on antibiotics, cultures are pending. Shortly after the patient arrived to the ICU yesterday, I placed a right subclavian central line, and a left brachial arterial line. Her labs today showed WBC count of 8.3 hemoglobin is 10.4, electrolytes are normal however she has slightly low bicarb of 18 and her renal functioning showed a BUN of 49 and creatinine 2.0. Slightly improved compared to yesterday, and I believe that's mostly with Dobutrex. Patient is not requiring any pressors, she is only on inotropic support. Echocardiogram showed good LV function. However she has significantly elevated right-sided ventricular systolic pressure of 1:15. She has severe mitral regurgitation and severe tricuspid regurgitation. Reevaluated today on 04/03/2019, patient remains on Lasix drip at 10 mg per hour remains on dobutamine at 5 mcg/kg/m. Continues to have excellent urine output, patient is negative over 3-1/2 L in the last 3 days. Her renal functioning is surprisingly better. Patient is on 2 L nasal cannula, comfortable, in no distress, blood pressure is marginal but not requiring any pressors. Remains mostly on inotropic support/dobutamine. WBC count is 7.5 hemoglobin is 10.3 left lites are normal BUN is down to 47 creatinine is down to 1.88. Blood cultures are negative. Urine is showing some Frida. Patient is being followed by infectious disease on the case. Reevaluated today on 04/04/2019, patient remains in the ICU, remains on dobutamine 5 mcg/kg/m, and remains on Lasix at 10 mg per hour. Patient continues to have significant negative fluid balance, her renal functioning is continuing to improve, remains on 2 L nasal cannula, breathing is easier, and she was seen by cardiology today, I recommended that she stays on the Peter X and Lasix drip at 10 mg per hour. Patient is hemodynamically stable, not requiring any pressors. Her PICC line was checked yesterday and seems to be functional. Her CBC today showed a hemoglobin of 10.3 stable WBC count is 7.7 and a crit are normal BUN is 46 and creatinine is improving down to 1.84 from 2.25 on admission Reevaluated today on 04/05/2019, remains in the ICU,remains on dobutamine at 5 mcg/kg/m, remains on Lasix at 10 mg per hour. Patient is feeling better, however her chest x-ray continues to show evidence of interstitial edema. Renal functioning seems to be improving. And that is mostly because of better renal perfusion while on Dobutrex. Remains in a negative fluid balance, she is over 6 L negative in the last few days. Hence I would recommend that we continue the same medications including dobutamine and Lasix drip.CBC is relatively normal electrodes are normal BUN is 49 creatinine is 1.71. Reevaluated today on 04/06/2019, patient remains in the ICU, remains on dobutamine and Lasix drip. However today I cut down the dose of dobutamine to 2.5 mcg/kg/m, and I cut down the Lasix to 5 mg per hour. Patient is clinically better, breathing easier, chest x-ray is showing improvement in her pulmonary edema, and her renal functioning seems to be steadily improving with Dobutrex. Patient remains in a negative fluid balance. On 04/07/2019 patient seen in follow-up on selective care unit, she is resting in bed, she is somnolent, but easily arousable, appears to be very fatigued, oral membranes are dry, patient has her lunch sitting in front of her she hasn't touched it, she states she is not feeling all that great, although she denies any specific complaints, is on 2 L of oxygen, her pulse ox is 98%, she appears to be quite fatigued, she is afebrile, hemodynamics are stable, she remains on dobutamine drip currently at 2-1/2 mics per kilo per minute, and he remains on Lasix drip at 10 mg per hour, is maintaining negative fluid balance, and -3916 mL over last 24 hours, lower extremity and abdominal wall edema improving, no nausea or vomiting, percutaneous drain in the abdomen draining minimal amount of bilious green drainage, fluid culture was positive for Corynebacterium striate him, urine culture showed Frida albicans. ID service is following, and patient is currently on cefepime and fluconazole for antibiotic coverage. On sounds are positive for fine rales and bilateral lower bases. Objective - Vital Signs Vital signs: Vital Signs Temp 97.8 F 04/07/19 12:00 Pulse 90 04/07/19 12:00 Resp 18 04/07/19 12:00 BP 106/70 04/07/19 12:00 Pulse Ox 98 04/07/19 12:00 Intake & Output 04/06/19 04/07/19 04/07/19 18:59 06:59 18:59 Intake Total 284 705 0 Output Total 1690 3215 725 Balance -1406 -3210 -725 Weight 121 kg 121 kg Intake: IV 184 200 Cefepime 2 gm In Sodium 200 Chloride 0.9% 100 ml @ 200 mls/hr IVPB Q24H DOC Rx#:[id number] Pressure bags 24 Sodium Chloride 0.9% 1, 160 000 ml @ 20 mls/hr IV . Q24H DOC Rx#:[id number] Intake, IV Titration 100 505 Amount Cefepime 2 gm In Sodium 200 Chloride 0.9% 100 ml @ 200 mls/hr IVPB Q24H DOC Rx#:[id number] DOBUTamine DRIP 500 mg In 250 Dextrose/Water 1 250ml. bag @ 2.5 MCG/KG/MIN 9. 083 mls/hr IV .Q24H DOC Rx#:[id number] Furosemide 100 mg In 100 15 Sodium Chloride 0.9% 90 ml @ 10 MG/HR 10 mls/hr IV .Q10H DOC Rx#: [id number] Sodium Chloride 0.9% 1, 40 000 ml @ 20 mls/hr IV . Q24H DOC Rx#:[id number] Oral 0 Output: Drainage 15 Left Upper Abdomen 15 Urine 1690 3200 725 Other: Voiding Method Indwelling Catheter Indwelling Catheter Indwelling Catheter ABP, PAP, CO, CI - Last Documented Arterial Blood Pressure 100/71 - Exam GENERAL EXAM: Lethargic, but arousable, weak, 68-year-old obese white female, resting on the gurney in the emergency department, with a room air pulse ox of 99% mild amount of distress from back pain which she states is chronic, comfortable in no apparent distress. HEAD: Normocephalic/atraumatic. EYES: Normal reaction of pupils, equal size. Conjunctiva pink, sclera white. NOSE: Clear with pink turbinates. THROAT: No erythema or exudates. NECK: No masses, no JVD, no thyroid enlargement, no adenopathy. CHEST: No chest wall deformity. Symmetrical expansion. LUNGS: Equal air entry with no crackles, wheeze, rhonchi or dullness. CVS: Irregular rate and rhythm, normal S1 and S2, no gallops, no murmurs, no rubs ABDOMEN: Soft, nontender. No hepatosplenomegaly, normal bowel sounds, no guarding or rigidity. Abdomen is nontender, obese, there is intra umbilical drain with small amount of bilious drainage EXTREMITIES: No clubbing, chronic lower extremity edema involving bilateral lower extremities, with some wrinkles, 2+ pitting no cyanosis, 2+ pulses and upper and lower extremities. MUSCULOSKELETAL: Muscle strength and tone normal. SPINE: No scoliosis or deformity SKIN: No rashes CENTRAL NERVOUS SYSTEM: Alert and oriented -3. No focal deficits, tone is normal in all 4 extremities. PSYCHIATRIC: Alert and oriented -3. Appropriate affect. Intact judgment and insight. - Labs CBC & Chem 7: 04/06/19 05:07 04/07/19 05:27 Labs: Abnormal Lab Results - Last 24 Hours (Table) 04/07/19 04/07/19 Range/Units 05:27 05:27 BUN 51 H (7-17) mg/dL Creatinine 1.65 H (0.52-1.04) mg/dL Calcium 8.3 L (8.4-10.2) mg/dL C-Reactive Protein 69.0 H (<10.0) mg/L Microbiology - Last 24 Hours (Table) 04/04/19 11:45 Gram Stain - Preliminary Aspirate Body Fluid Culture - Preliminary Corynebacterium striatum 04/01/19 10:53 Blood Culture - Final Blood No Growth after 144 hours Assessment and Plan Plan: Assessment: #1. Hypotension, could be related to possibility of underlying sepsis, and acute exacerbation of chronic congestive heart failure with diastolic dysfunction #2. Acute kidney injury related to cardiorenal syndrome, improving with inotropes #3. Acute urinary tract infection, urine cultures positive for Frida albicans #4. Recent hospitalization in February for intra-abdominal abscess, with placement of ultrasound-guided percutaneous drain, with wound cultures positive for Klebsiella pneumonia patient was discharged back to subacute rehab with Rocephin infusions. This was readjusted by interventional radiology 2 days ago, and the fluid culture from this admission is positive for Corynebacterium striata #5. Recent surgery in January 2019 for repair of incarcerated internal hernia with secondary peritonitis, status post resection of a portion of the bowel, at that time patient completed a course of Cipro and Flagyl for 1 week at the [facility] post discharge #6. Chronic A. fib, not on anticoagulation related to history of GI bleeding #7. Severe pulmonary hypertension #8. Morbid obesity #9. Non-rheumatic mitral regurgitation, moderate in severity and severe tricuspid regurgitation #10. Hypertension #11. Hyperlipidemia #12. GERD/reflux #13. Severe osteoarthritis #14. Suspect chronic obesity hypoventilation syndrome/obstructive sleep apnea #15. Chronic medical deconditioning #16. Chronic diverticulosis Plan: Continue current medical treatment, patient remains on dobutamine drip and the dose was weaned down to 2-1/2 mics per kilo per minute, remains on Lasix drip she is maintaining negative fluid balance, fluid volume status is improving, radiology is following, overall prognosis is extremely guarded, antibiotics per ID service recommendations. Renal profile is relatively stable, nephrology is following, maintaining stable oxygenation on 2 L, overall she seems to be very weak. Long-term prognosis is guarded I performed a history & physical examination of the patient and discussed their management with my nurse practitioner, Ct Palomares. I reviewed the nurse practitioner's note and agree with the documented findings and plan of care. Lung sounds are positive for diminished breath sounds. The findings and the impression was discussed with the patient. I attest to the documentation by the nurse practitioner. Time with Patient: Less than 30
[2019-04-07 19:45] LABS: Glucose,Whole Blood 105 mg/dL (75-99)
[2019-04-07] MEDS: ONDANSETRON 4 MG/2 ML VIAL IVP PRN (20:04)
[2019-04-07] MEDS: CEFEPIME 2 GM in SODIUM CHLORIDE 0.9% 100 ML IVPB SCH (20:05)
--- NOTE | 2019-04-07 21:29 | P.PN ---
Progress Note - Text Progress Note Date: 04/07/19 Chief Complaint: Feeling unwell Interval history: This is a 68-year-old patient who follows Dr. Cooper. general helper Dr. SHELL Dawn. extensive medical history. Chronic stable medical conditions include GERD, hyperlipidemia, hypertension, osteoarthritis, had a stroke in 2017 left her with a slow speech, diverticulosis, PTSD ,depression, CHF EF of 65-70%, chronic cor pulmonale, severe secondary pulmonary hypertension and atrial fibrillation. 2 months ago-underwent small bowel resection, repair of strangulated ventral hernia and incarcerated umbilical hernia and partial omentectomy. On March 20 admitted with abdominal pain computed tomography scan-showed a large subcutaneous fluid collection on the lower anterior abdominal wall . Drain was placed. Cultures were positive for Corynebacterium stratum and Klebsiella pneumoniae. Treat with IV ceftriaxone. Discharged on March 25 to the [facility]. Patient now presents with increasing weakness tiredness fatigue. Decreased appetite. Some shortness of breath. Increasing lower extremity swelling. The patient running low. Occasional bowel movement. Feeling tired and rundown. Initial blood pressure was in the 80s. Admitted to ICU. Started on IV fluids and dobutamine. Denies any obvious fever and chills. Admitted with-hypotension, acute kidney injury from a cardiorenal syndrome, acute on chronic cor pulmonale exacerbation. Diagnosed with depression. Today-. Moved to the medical floor. On dobutamine 2.5 mics an hour and Lasix 10 mg an hour drip. Continues to be negative fluid balance. Tired. Eating some. Laying in bed. Review of systems: Was done for constitutional, cardiovascular, GI, pulmonary. relevant finding as above Active Medications Amlodipine Besylate (Norvasc) 2.5 mg PO DAILY [facility] Last Admin: 04/07/19 08:49 Dose: 2.5 mg Documented by: Fluconazole (Diflucan) 100 mg PO DAILY [facility] Last Admin: 04/07/19 08:49 Dose: 100 mg Documented by: Heparin Sodium (Porcine) (Heparin) 5,000 unit SQ Q8HR [facility] Last Admin: 04/07/19 17:08 Dose: 5,000 unit Documented by: Sodium Chloride (Saline 0.9%) 1,000 mls @ 20 mls/hr IV .Q24H [facility] Last Admin: 04/07/19 05:15 Dose: Not Given Documented by: Dobutamine HCl/Dextrose 500 mg (/ IV Solution) 250 mls @ 9.083 mls/hr IV .Q24H [facility] Last Admin: 04/06/19 22:32 Dose: 2.5 mcg/kg/min, 9.083 mls/hr Documented by: Cefepime HCl 2 gm/ Sodium (Chloride) 100 mls @ 200 mls/hr IVPB Q24H [facility] Last Admin: 04/07/19 20:05 Dose: 200 mls/hr Documented by: Furosemide 100 mg/ Sodium (Chloride) 100 mls @ 10 mls/hr IV .Q10H [facility] Last Admin: 04/07/19 20:04 Dose: 10 mg/hr, 10 mls/hr Documented by: Metoprolol Tartrate (Lopressor) 25 mg PO BID [facility] Last Admin: 04/07/19 20:04 Dose: 25 mg Documented by: Mirtazapine (Remeron) 7.5 mg PO HS [facility] Last Admin: 04/06/19 20:44 Dose: 7.5 mg Documented by: Nitroglycerin (Nitrostat) 0.4 mg SUBLINGUAL Q5M PRN PRN Reason: Chest Pain Ondansetron HCl (Zofran) 4 mg IVP Q6HR PRN PRN Reason: Nausea And Vomiting Last Admin: 04/07/19 20:04 Dose: 4 mg Documented by: Pantoprazole Sodium (Protonix) 40 mg PO AC-BRKFST [facility] Last Admin: 04/07/19 05:18 Dose: 40 mg Documented by: Tramadol HCl (Ultram) 50 mg PO Q12HR PRN PRN Reason: Pain Last Admin: 04/07/19 05:19 Dose: 50 mg Documented by: Physical examination: VITAL SIGNS: 97.4, 92, 18, 108/73, 100% on 2 L GENERAL: Laying in bed, awake, tired EYES: Pupils equal. Conjunctiva pale HEENT: External appearance of nose and ears normal, oral cavity grossly normal. NECK: Short and thick, JVD unable to assess; masses not palpable. HEART: Heart sounds muffled; edema decreased LUNGS: Respiratory rate normal; distant breath sounds. ABDOMEN: Soft, tender, JESSIKA drain in the abdominal wall,, liver spleen not palpable, no masses palpable. Bowel sounds present PSYCH: Answering questions INVESTIGATIONS, reviewed in the clinical context: Bun 51 creatinine 1.65 Previous testing White count 10.8 hemoglobin 12.1 ProTime 14.4 potassium 4.8 BUN 50 creatinine 2.25 Bun 27 creatinine 0.97 on March 23 Chest x-ray film personally reviewed by me-cardiomegaly, questionable right- sided infiltrate EKG tracing personally reviewed by me-Prashant paced rhythm Previous testing Computed tomography scan of the abdomen-fluid collection of lower anterior abdominal wall Wound culture-Corynebacterium striatum, Klebsiella pneumoniae, Assessment: -Hypotension from acute cardiorenal syndrome -Acute lower abdominal wall fluid collection, JESSIKA drain in place, with cultures growing Klebsiella Pneumoniae and Corynebacterium Stratum., From last admission -Status post-incarcerated abdominal ventral wall hernia with small bowel, leading to repair of the same, -Acute on Chronic congestive heart failure from diastolic dysfunction EF 65- 70%,, remains on dobutamine and Lasix drip, slow to respond -Acute on Chronic cor pulmonale, exacerbation, slow to respond -Severe secondary pulmonary hypertension from CHF -Hypertensive heart disease -Moderate mitral regurgitation, severe tricuspid regurgitation, mitral valve pro lapse, nontraumatic -GERD -Hyperlipidemia -Essential hypertension, history of -Primary osteoarthritis -Chronic diverticulosis -Morbid obesity BMI 54.5 -Possibly obesity hypoventilation syndrome -Biventricular pacemaker -Metabolic acidosis from acute kidney injury related -Depressive disorder unspecified, started on Remeron Plan: -Remains on Lasix drip and dobutamine. Continues to be negative fluid balance. Encouraged oral intake. Follow electrolytes..
[2019-04-07] MEDS: MIRTAZAPINE 15 MG TAB PO SCH (22:33)
[2019-04-08] MEDS: HEPARIN SODIUM,PORCINE 5,000 UNIT/ML 1 ML VIAL SQ SCH ×3 (01:58→15:53)
[2019-04-08] MEDS: SODIUM CHLORIDE 0.9% 1,000 ML IV SCH (03:14)
[2019-04-08] MEDS: DOBUTamine DRIP 500 MG in DEXTROSE/WATER 1 250ML.BAG IV SCH ×2 (03:14→06:33)
[2019-04-08] MEDS: FUROSEMIDE 100 MG in SODIUM CHLORIDE 0.9% 90 ML IV SCH ×2 (06:32→18:13)
[2019-04-08] MEDS: PANTOPRAZOLE 40 MG TABLET PO SCH (06:33)
[2019-04-08 06:54] LABS: Calcium 8.3 mg/dL (8.4-10.2); Potassium 3.9 mmol/L (3.5-5.1)
[2019-04-08] MEDS: traMADol 50 MG TAB PO PRN (08:40)
[2019-04-08] MEDS: FLUCONAZOLE 100 MG TAB PO SCH (08:40)
[2019-04-08] MEDS: METOPROLOL TARTRATE 25 MG TAB PO SCH ×2 (08:41→21:00)
[2019-04-08] MEDS: amLODIPine 2.5 MG TAB PO SCH (08:41)
--- NOTE | 2019-04-08 11:13 | P.PN ---
Subjective Patient is seen in follow-up for acute kidney injury. Renal function is a little worse today which is due to diuresis. Creatinine 1.8 today. Still quite edematous. She is maintained on Lasix drip at 10 mL an hour along with dobutamine. She is nonoliguric. Oral intake is fair. Denies vomiting or diarrhea. Urine output documented is 4.9 L in the last 24 hours. Vital signs are stable. General: The patient appeared well nourished and normally developed. HEENT: Head exam is unremarkable. Neck is without jugular venous distension. LUNGS: Breath sounds decreased. HEART: Rate and Rhythm are regular. First and second heart sounds normal. No murmurs, rubs or gallops. ABDOMEN: Abdominal exam reveals normal bowel sounds. Non-tender and non- distended. EXTREMITITES: 2+ edema. Objective - Vital Signs Vital signs: Vital Signs Temp 97.2 F L 04/08/19 08:00 Pulse 91 04/08/19 08:00 Resp 16 04/08/19 08:00 BP 101/64 04/08/19 08:00 Pulse Ox 91 L 04/08/19 08:00 Intake & Output 04/07/19 04/08/19 04/08/19 18:59 06:59 18:59 Intake Total 0 534 540 Output Total 725 120 Balance -725 414 540 Weight 121 kg 125 kg Intake: IV 100 Cefepime 2 gm In Sodium 100 Chloride 0.9% 100 ml @ 200 mls/hr IVPB Q24H DOC Rx#:[id number] Intake, IV Titration 434 Amount DOBUTamine DRIP 500 mg In 250 Dextrose/Water 1 250ml. bag @ 2.5 MCG/KG/MIN 9. 083 mls/hr IV .Q24H DOC Rx#:[id number] Furosemide 100 mg In 184 Sodium Chloride 0.9% 90 ml @ 10 MG/HR 10 mls/hr IV .Q10H DOC Rx#: [id number] Oral 0 540 Output: Drainage 0 Left Upper Abdomen 0 Urine 725 120 Other: Voiding Method Indwelling Catheter Indwelling Catheter Indwelling Catheter # Voids 1 ABP, PAP, CO, CI - Last Documented Arterial Blood Pressure 100/71 - Labs CBC & Chem 7: 04/06/19 05:07 04/08/19 06:16 Labs: Abnormal Lab Results - Last 24 Hours (Table) 04/07/19 04/08/19 Range/Units 19:43 06:16 Sodium 135 L (137-145) mmol/L BUN 51 H (7-17) mg/dL Creatinine 1.80 H (0.52-1.04) mg/dL POC Glucose (mg/dL) 105 H (75-99) mg/dL Calcium 8.3 L (8.4-10.2) mg/dL Microbiology - Last 24 Hours (Table) 04/04/19 11:45 Gram Stain - Final Aspirate Body Fluid Culture - Final Corynebacterium striatum 04/01/19 10:53 Blood Culture - Final Blood No Growth after 144 hours Assessment and Plan Plan: Assessment: 1. Acute kidney injury mostly prerenal secondary to cardiorenal syndrome. Renal function a little worse due to diuresis. Creatinine 1.8 today. 2. Volume overload. 3. Acute on chronic diastolic CHF with severe mitral and tricuspid reg urgitation. 4. Severe pulmonary hypertension. 5. Intra-abdominal abscess requiring tube drainage. Maintained on IV antibiotics. 6. Hypomagnesemia secondary to diuresis. Better. Plan: Maintain Lasix drip at 10 mL an hour. Continue to monitor renal function and urine output. Repeat electrolytes in the morning. Hold amlodipine for systolic blood pressure less than 120.
--- NOTE | 2019-04-08 14:34 | P.PN ---
Subjective Progress Note Date: 04/08/19 Principal diagnosis: Acute exacerbation of diastolic congestive heart failure 68-year-old female patient of Dr. Cooper, with past medical history of chronic congestive heart failure with diastolic dysfunction, chronic A. fib not on chronic anticoagulation for history of GI bleeding, cardiomyopathy with permanent pacemaker implantation, anxiety, depression, GERD/reflux, hypert ension, hyperlipidemia, previous history of CVA, morbid obesity, gait dysfunction. In January 2019 patient was hospitalized for acute abdominal pain and was found to have an incarcerated umbilical hernia that contained multiple bowel loops. She underwent surgery for strangulated ventral hernia repair, patient had recovered and was sent to [facility] on Cipro and Flagyl for 1 week. In February while working with physical therapy there was any drainage noted from the abdominal wound, patient was hospitalized again, wound culture positive for Klebsiella pneumonia. She was treated with Unasyn, she underwent ultrasound guided continuous catheter placement for abdominal fluid collection, she was discharged back to [facility] with Rocephin infusions. On 04/01/2019 patient presented to the emergency department with low blood pressure readings, and she had been complaining of generalized weakness, fatigue 's been progressive. Patient is also admitted to shortness of breath when lying flat. She states that she had had some bilious vomiting, nausea, she had reached oral intake, denied any cough or congestion, no chest pain. Denied any diarrhea, denied any abdominal pain, umbilical percutaneous drain is still in place with small amount of bilious drainage. According to the nursing staff show blood pressures were acceptable however subsequently patient did become hypotensive with a systolic blood pressures as low as 50-80. Chest x-ray showed cardiomegaly, pulmonary venous hypertension and early interstitial edema, volume overload. EKG showed the ventricular paced rhythm, labs were reviewed showing low blood cell count of 10.8, hemoglobin of 12.1, INR 1.4, sodium is 138, potassium is 4.8, chloride is 108, CO2 17, BUN is 50 creatinine is 2.25, troponins were negative 2, proBNP was 53,200, urinalysis showed evidence of large amount of leuks, bacteria and white blood cells. Patient has received a dose of Rocephin, she has been started on dobutamine per cardiology recommendations, echocardiogram is pending, currently blood pressures have improved, 100/73, patient is in A. fib with a controlled rate, room air pulse ox is 99%. She is awaiting a bed in the intensive care unit Patient was reevaluated today on 04/02/2019, patient remains on Dobutrex, remains on Lasix drip which was recommended by cardiology. She is on 10 mg of Lasix per hour. And Dobutrex at 5 mcg/kg/m. Feeling better, breathing easier, she seems to have excellent urine output with the Lasix drip. Patient remains empirically on antibiotics, cultures are pending. Shortly after the patient arrived to the ICU yesterday, I placed a right subclavian central line, and a left brachial arterial line. Her labs today showed WBC count of 8.3 hemoglobin is 10.4, electrolytes are normal however she has slightly low bicarb of 18 and her renal functioning showed a BUN of 49 and creatinine 2.0. Slightly improved compared to yesterday, and I believe that's mostly with Dobutrex. Patient is not requiring any pressors, she is only on inotropic support. Echocardiogram showed good LV function. However she has significantly elevated right-sided ventricular systolic pressure of 1:15. She has severe mitral regurgitation and severe tricuspid regurgitation. Reevaluated today on 04/03/2019, patient remains on Lasix drip at 10 mg per hour remains on dobutamine at 5 mcg/kg/m. Continues to have excellent urine output, patient is negative over 3-1/2 L in the last 3 days. Her renal functioning is surprisingly better. Patient is on 2 L nasal cannula, comfortable, in no distress, blood pressure is marginal but not requiring any pressors. Remains mostly on inotropic support/dobutamine. WBC count is 7.5 hemoglobin is 10.3 left lites are normal BUN is down to 47 creatinine is down to 1.88. Blood cultures are negative. Urine is showing some Frida. Patient is being followed by infectious disease on the case. Reevaluated today on 04/04/2019, patient remains in the ICU, remains on dobutamine 5 mcg/kg/m, and remains on Lasix at 10 mg per hour. Patient continues to have significant negative fluid balance, her renal functioning is continuing to improve, remains on 2 L nasal cannula, breathing is easier, and she was seen by cardiology today, I recommended that she stays on the Peter X and Lasix drip at 10 mg per hour. Patient is hemodynamically stable, not requiring any pressors. Her PICC line was checked yesterday and seems to be functional. Her CBC today showed a hemoglobin of 10.3 stable WBC count is 7.7 and a crit are normal BUN is 46 and creatinine is improving down to 1.84 from 2.25 on admission Reevaluated today on 04/05/2019, remains in the ICU,remains on dobutamine at 5 mcg/kg/m, remains on Lasix at 10 mg per hour. Patient is feeling better, however her chest x-ray continues to show evidence of interstitial edema. Renal functioning seems to be improving. And that is mostly because of better renal perfusion while on Dobutrex. Remains in a negative fluid balance, she is over 6 L negative in the last few days. Hence I would recommend that we continue the same medications including dobutamine and Lasix drip.CBC is relatively normal electrodes are normal BUN is 49 creatinine is 1.71. Reevaluated today on 04/06/2019, patient remains in the ICU, remains on dobutamine and Lasix drip. However today I cut down the dose of dobutamine to 2.5 mcg/kg/m, and I cut down the Lasix to 5 mg per hour. Patient is clinically better, breathing easier, chest x-ray is showing improvement in her pulmonary edema, and her renal functioning seems to be steadily improving with Dobutrex. Patient remains in a negative fluid balance. On 04/07/2019 patient seen in follow-up on selective care unit, she is resting in bed, she is somnolent, but easily arousable, appears to be very fatigued, oral membranes are dry, patient has her lunch sitting in front of her she hasn't touched it, she states she is not feeling all that great, although she denies any specific complaints, is on 2 L of oxygen, her pulse ox is 98%, she appears to be quite fatigued, she is afebrile, hemodynamics are stable, she remains on dobutamine drip currently at 2-1/2 mics per kilo per minute, and he remains on Lasix drip at 10 mg per hour, is maintaining negative fluid balance, and -3916 mL over last 24 hours, lower extremity and abdominal wall edema improving, no nausea or vomiting, percutaneous drain in the abdomen draining minimal amount of bilious green drainage, fluid culture was positive for Corynebacterium striate him, urine culture showed Frida albicans. ID service is following, and patient is currently on cefepime and fluconazole for antibiotic coverage. On sounds are positive for fine rales and bilateral lower bases. The patient is seen today 04/08/2019 in follow-up on the selective care unit. She is awake and alert in no acute distress. Doing a bit better today compared to yesterday. Maintaining O2 saturations in the 90s on 3 L/m per nasal cannula. Afebrile. Sodium 135. Potassium 3.9. Creatinine 1.80. She remains on dobutamine at 2.5 mcg/kg/m. She is also on a Lasix drip at 10 mg per hour. Antibiotics in the form of cefepime. On Diflucan. Objective - Vital Signs Vital signs: Vital Signs Temp 98.1 F 04/08/19 12:20 Pulse 95 04/08/19 12:20 Resp 16 04/08/19 12:20 BP 93/60 04/08/19 12:20 Pulse Ox 93 L 04/08/19 12:20 Intake & Output 04/07/19 04/08/19 04/08/19 18:59 06:59 18:59 Intake Total 0 534 660 Output Total 725 120 0 Balance -725 414 660 Weight 121 kg 125 kg Intake: IV 100 Cefepime 2 gm In Sodium 100 Chloride 0.9% 100 ml @ 200 mls/hr IVPB Q24H DOC Rx#:[id number] Intake, IV Titration 434 120 Amount DOBUTamine DRIP 500 mg In 250 Dextrose/Water 1 250ml. bag @ 2.5 MCG/KG/MIN 9. 083 mls/hr IV .Q24H DOC Rx#:[id number] Furosemide 100 mg In 184 Sodium Chloride 0.9% 90 ml @ 10 MG/HR 10 mls/hr IV .Q10H DOC Rx#: [id number] Sodium Chloride 0.9% 1, 120 000 ml @ 20 mls/hr IV . Q24H DOC Rx#:[id number] Oral 0 540 Output: Drainage 0 0 Left Upper Abdomen 0 0 Urine 725 120 Other: Voiding Method Indwelling Catheter Indwelling Catheter Indwelling Catheter # Voids 1 ABP, PAP, CO, CI - Last Documented Arterial Blood Pressure 100/71 - Exam GENERAL EXAM: More awake today, weak, 68-year-old obese female patient, resting in bed, on 3 L nasal cannula O2 saturation 93% HEAD: Normocephalic/atraumatic. EYES: Normal reaction of pupils, equal size. Conjunctiva pink, sclera white. NOSE: Clear with pink turbinates. THROAT: No erythema or exudates. NECK: No masses, no JVD, no thyroid enlargement, no adenopathy. CHEST: No chest wall deformity. Symmetrical expansion. LUNGS: Equal air entry with crackles in the bilateral posterior bases. CVS: Irregular rate and rhythm, normal S1 and S2, no gallops, no murmurs, no rubs ABDOMEN: Soft, nontender. No hepatosplenomegaly, normal bowel sounds, no guarding or rigidity. Abdomen is nontender, obese, there is intra umbilical drain with small amount of bilious drainage EXTREMITIES: No clubbing, chronic lower extremity edema involving bilateral lower extremities, with some wrinkles, 2+ pitting no cyanosis, 2+ pulses and upper and lower extremities. MUSCULOSKELETAL: Muscle strength and tone normal. SPINE: No scoliosis or deformity SKIN: No rashes CENTRAL NERVOUS SYSTEM: No focal deficits, tone is normal in all 4 extremities. PSYCHIATRIC: Alert and oriented -3. Appropriate affect. Intact judgment and insight. - Labs CBC & Chem 7: 04/06/19 05:07 04/08/19 06:16 Labs: Abnormal Lab Results - Last 24 Hours (Table) 04/07/19 04/08/19 Range/Units 19:43 06:16 Sodium 135 L (137-145) mmol/L BUN 51 H (7-17) mg/dL Creatinine 1.80 H (0.52-1.04) mg/dL POC Glucose (mg/dL) 105 H (75-99) mg/dL Calcium 8.3 L (8.4-10.2) mg/dL Microbiology - Last 24 Hours (Table) 04/04/19 11:45 Gram Stain - Final Aspirate Body Fluid Culture - Final Corynebacterium striatum 04/01/19 10:53 Blood Culture - Final Blood No Growth after 144 hours Assessment and Plan Assessment: #1. Hypotension, recovered, could be related to possibility of underlying sepsis, and acute exacerbation of chronic congestive heart failure with diastolic dysfunction #2. Acute kidney injury related to cardiorenal syndrome, improving with inotropes #3. Acute urinary tract infection, urine cultures positive for Frida albicans, on Diflucan #4. Recent hospitalization in February for intra-abdominal abscess, with placement of ultrasound-guided percutaneous drain, with wound cultures positive for Klebsiella pneumonia patient was discharged back to subacute rehab with Rocephin infusions. This was readjusted by interventional radiology 2 days ago, and the fluid culture from this admission is positive for Corynebacterium striata #5. Recent surgery in January 2019 for repair of incarcerated internal hernia with secondary peritonitis, status post resection of a portion of the bowel, at that time patient completed a course of Cipro and Flagyl for 1 week at the [facility] post discharge #6. Chronic A. fib, not on anticoagulation related to history of GI bleeding #7. Severe pulmonary hypertension #8. Morbid obesity #9. Non-rheumatic mitral regurgitation, moderate in severity and severe tricuspid regurgitation #10. Hypertension #11. Hyperlipidemia #12. GERD/reflux #13. Severe osteoarthritis #14. Suspect chronic obesity hypoventilation syndrome/obstructive sleep apnea #15. Chronic medical deconditioning #16. Chronic diverticulosis Plan: The patient was seen and evaluated by Dr. Lemons. She is more alert today compared to yesterday. Remains on dobutamine and Lasix drips. We will continue to follow and make further recommendations based on her clinical status. Overall prognosis remains quite guarded. I, the cosigning physician, performed a history & physical examination of the patient. Lungs sounds crackles in the bilateral posterior bases. Maintaining good O2 saturations in the 90s on 3 L/m per nasal cannula. I discussed the asse ssment and plan of care with my nurse practitioner, Roro Smith. I attest to the above note as dictated by her.
--- NOTE | 2019-04-08 14:45 | P.PN ---
Subjective Progress Note Date: 04/08/19 This is a very pleasant 68-year-old female patient with a past medical history significant for long-standing persistent atrial fibrillation, history of chronic diastolic congestive heart failure, hypertension, dyslipidemia, as well as history pacemaker, was admitted to the intensive care unit with heart failure. The patient was on Lasix drip as well as dobutamine drip. The Lasix drip was discontinued and patient was changed over to oral diuretics which she is on today. Appears that the patient is still on IV dobutamine. Patient is not on oral anticoagulation because of GI bleeding. 04/08/2019 Patient was seen and examined today, appears a little more alert than yesterday, maintaining O2 sats ration's in the 90s on 3 L nasal cannula, sodium 135, potassium 3.9, creatinine 1.8. Patient continues to be on dobutamine and Lasix drip. Objective - Vital Signs Vital signs: Vital Signs Temp 98.1 F 04/08/19 12:20 Pulse 95 04/08/19 12:20 Resp 16 04/08/19 12:20 BP 93/60 04/08/19 12:20 Pulse Ox 93 L 04/08/19 12:20 Intake & Output 04/07/19 04/08/19 04/08/19 18:59 06:59 18:59 Intake Total 0 534 660 Output Total 725 120 0 Balance -725 414 660 Weight 121 kg 125 kg Intake: IV 100 Cefepime 2 gm In Sodium 100 Chloride 0.9% 100 ml @ 200 mls/hr IVPB Q24H DOC Rx#:[id number] Intake, IV Titration 434 120 Amount DOBUTamine DRIP 500 mg In 250 Dextrose/Water 1 250ml. bag @ 2.5 MCG/KG/MIN 9. 083 mls/hr IV .Q24H DOC Rx#:[id number] Furosemide 100 mg In 184 Sodium Chloride 0.9% 90 ml @ 10 MG/HR 10 mls/hr IV .Q10H DOC Rx#: [id number] Sodium Chloride 0.9% 1, 120 000 ml @ 20 mls/hr IV . Q24H DOC Rx#:[id number] Oral 0 540 Output: Drainage 0 0 Left Upper Abdomen 0 0 Urine 725 120 Other: Voiding Method Indwelling Catheter Indwelling Catheter Indwelling Catheter # Voids 1 ABP, PAP, CO, CI - Last Documented Arterial Blood Pressure 100/71 - Exam Physical Exam: Revealed a 68-year-old female, morbidly obese, asymptomatic, remains on 2 L nasal cannula Head: Atraumatic, normocephalic. HEENT:[Neck is supple.] [No neck masses.] [No thyromegaly.] [No JVD.] PERRLA, EOMI, dry mucous membranes. Chest: Symmetrical chest expansion. [Clear throughout, no crackles, no rhonchi, no wheezes.] Right subclavian central line is noted. Cardiac Exam: Irregular irregular rhythm. [Normal S1 and S2, no S3 gallop, 3/6 systolic murmur thought the precordium.] Abdomen: [Soft, nontender. Morbidly obese. No hepatosplenomegaly, normal bowel sounds, no guarding or rigidity. Umbilical drain is noted, and that is to be addressed by interventional radiology today possibly will be discontinued. Extremities: [No clubbing, chronic venous stasis changes noted bilaterally with 2+ pitting edema. Right brachial PICC line is noted. Neurological Exam: Alert and oriented 3. [No focal neurologic deficit.] Psychiatric: Normal mood, affect and normal mental status examination. Skin: Chronic venous stasis changes noted in lower extremities Musculoskeletal good muscle tone, no deformities, good muscle strength bilaterally. - Labs CBC & Chem 7: 04/06/19 05:07 04/08/19 06:16 Labs: Abnormal Lab Results - Last 24 Hours (Table) 04/07/19 04/08/19 Range/Units 19:43 06:16 Sodium 135 L (137-145) mmol/L BUN 51 H (7-17) mg/dL Creatinine 1.80 H (0.52-1.04) mg/dL POC Glucose (mg/dL) 105 H (75-99) mg/dL Calcium 8.3 L (8.4-10.2) mg/dL Microbiology - Last 24 Hours (Table) 04/04/19 11:45 Gram Stain - Final Aspirate Body Fluid Culture - Final Corynebacterium striatum 04/01/19 10:53 Blood Culture - Final Blood No Growth after 144 hours Assessment and Plan Plan: Assessment andPlan: 1 diastolic congestive heart failure acute on chronic 2 hypotension,Currently improved after receiving mild IV fluids 3 Nonischemic cardiomyopathy 4 acute on chronic kidney injury 5 morbid obesity with a BMI of 46.1 6 Cor pulmonale with severe pulmonary hypertension and right-sided heart failure 7 non-rheumatologic mitral regurgitation moderate in severity and severe tricuspid regurgitation 8 hyperlipidemia 9 hypertension 10 acid reflux 11 severe osteoarthritis 12 chronic diverticulosis 13 chronic obesity hypoventilation syndrome/obstructive sleep apnea. 14 chronic medical deconditioning 15 bi-V pacemaker Plan We'll continue with the IV Lasix drip and dobutamine drip as per nephrology's recommendation. Overall prognosis of this patient is guarded. DNP note has been reviewed, I agree with a documented findings and plan of care. Patient was seen and examined.
[2019-04-08] MEDS: CEFEPIME 2 GM in SODIUM CHLORIDE 0.9% 100 ML IVPB SCH (20:55)
[2019-04-08] MEDS: MIRTAZAPINE 15 MG TAB PO SCH (21:00)
--- NOTE | 2019-04-08 23:37 | PN ---
PROGRESS NOTE DATE OF SERVICE: 04/08/2019. REASON FOR FOLLOWUP: 1. UTI. 2. Abdominal wall seroma. INTERVAL HISTORY: The patient is currently afebrile. The patient is breathing comfortably. Denies having any chest pain or any cough. No nausea, vomiting, abdominal pain or diarrhea. PHYSICAL EXAMINATION: Blood pressure 139/82 with a pulse of 91, temperature 98.1. She is 92% on 3 L nasal cannula. General description is an elderly female lying in bed in no distress. RESPIRATORY SYSTEM: Unlabored breathing. Clear to auscultation anteriorly. HEART: S1, S2. Regular rate and rhythm. ABDOMEN: Soft. No tenderness. LABS: BUN 51, creatinine 1.80. DIAGNOSTIC IMPRESSION AND PLAN: 1. Patient with urinary tract infection, urine with Frida albicans, for which the patient is on Diflucan to finish her course of therapy. 2. Patient with abdominal wall seroma, status post manipulation of her drainage catheter. Culture has been corynebacterium, more likely skin contaminant. Antibiotic has been completed/discontinued. Will monitor her clinical course closely off antibiotic therapy and continue with supportive care. MMODL / IJN: [id number] /
[2019-04-09] MEDS: HEPARIN SODIUM,PORCINE 5,000 UNIT/ML 1 ML VIAL SQ SCH ×3 (00:08→16:32)
--- NOTE | 2019-04-09 00:47 | P.PN ---
Progress Note - Text Progress Note Date: 04/08/19 Chief Complaint: Feeling unwell Interval history: This is a 68-year-old patient who follows Dr. Cooper. 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 extensive medical history. Chronic stable medical conditions include GERD, hyperlipidemia, hypertension, osteoarthritis, had a stroke in 2017 left her with a slow speech, diverticulosis, PTSD ,depression, CHF EF of 65-70%, chronic cor pulmonale, severe secondary pulmonary hypertension and atrial fibrillation. 2 months ago-underwent small bowel resection, repair of strangulated ventral hernia and incarcerated umbilical hernia and partial omentectomy. On March 20 admitted with abdominal pain computed tomography scan-showed a large subcutaneous fluid collection on the lower anterior abdominal wall . Drain was placed. Cultures were positive for Corynebacterium stratum and Klebsiella pneumoniae. Treat with IV ceftriaxone. Discharged on March 25 to the [facility]. Patient now presents with increasing weakness tiredness fatigue. Decreased appetite. Some shortness of breath. Increasing lower extremity swelling. The patient running low. Occasional bowel movement. Feeling tired and rundown. Initial blood pressure was in the 80s. Admitted to ICU. Started on IV fluids and dobutamine. Denies any obvious fever and chills. Admitted with-hypotension, acute kidney injury from a cardiorenal syndrome, acute on chronic cor pulmonale exacerbation. Diagnosed with depression. Today-. Laying in bed. Remains on Lasix and debridement drip. Remains on negative fluid balance. Retired. Remains in negative fluid balance. Review of systems: Was done for constitutional, cardiovascular, GI, pulmonary. relevant finding as above Active Medications Amlodipine Besylate (Norvasc) 2.5 mg PO DAILY [facility] Last Admin: 04/08/19 08:41 Dose: 2.5 mg Documented by: Fluconazole (Diflucan) 100 mg PO DAILY [facility] Last Admin: 04/08/19 08:40 Dose: 100 mg Documented by: Heparin Sodium (Porcine) (Heparin) 5,000 unit SQ Q8HR [facility] Last Admin: 04/09/19 00:08 Dose: Not Given Documented by: Sodium Chloride (Saline 0.9%) 1,000 mls @ 20 mls/hr IV .Q24H [facility] Last Admin: 04/08/19 03:14 Dose: Not Given Documented by: Dobutamine HCl/Dextrose 500 mg (/ IV Solution) 250 mls @ 9.083 mls/hr IV .Q24H [facility] Last Admin: 04/08/19 06:33 Dose: 2.5 mcg/kg/min, 9.083 mls/hr Documented by: Furosemide 100 mg/ Sodium (Chloride) 100 mls @ 5 mls/hr IV .Q20H [facility] Last Admin: 04/08/19 18:13 Dose: 5 mg/hr, 5 mls/hr Documented by: Metoprolol Tartrate (Lopressor) 25 mg PO BID [facility] Last Admin: 04/08/19 21:00 Dose: 25 mg Documented by: Mirtazapine (Remeron) 7.5 mg PO HS [facility] Last Admin: 04/08/19 21:00 Dose: Not Given Documented by: Nitroglycerin (Nitrostat) 0.4 mg SUBLINGUAL Q5M PRN PRN Reason: Chest Pain Ondansetron HCl (Zofran) 4 mg IVP Q6HR PRN PRN Reason: Nausea And Vomiting Last Admin: 04/07/19 20:04 Dose: 4 mg Documented by: Pantoprazole Sodium (Protonix) 40 mg PO AC-BRKFST [facility] Last Admin: 04/08/19 06:33 Dose: 40 mg Documented by: Tramadol HCl (Ultram) 50 mg PO Q12HR PRN PRN Reason: Pain Last Admin: 04/08/19 08:40 Dose: 50 mg Documented by: Physical examination: VITAL SIGNS: 98.1, 91, 16, 107/67, 92% on 3 L GENERAL: Laying in bed, awake, tired EYES: Pupils equal. Conjunctiva pale HEENT: External appearance of nose and ears normal, oral cavity grossly normal. NECK: Short and thick, JVD unable to assess; masses not palpable. HEART: Heart sounds muffled; edema decreased LUNGS: Respiratory rate normal; distant breath sounds. ABDOMEN: Soft, tender, JESSIKA drain in the abdominal wall,, liver spleen not palpable, no masses palpable. Bowel sounds present PSYCH: Answering questions INVESTIGATIONS, reviewed in the clinical context: Potassium 3.9 bun 51 creatinine 1.8 Previous testing White count 10.8 hemoglobin 12.1 ProTime 14.4 potassium 4.8 BUN 50 creatinine 2 .25 Bun 27 creatinine 0.97 on March 23 Chest x-ray film personally reviewed by me-cardiomegaly, questionable right- sided infiltrate EKG tracing personally reviewed by -Prashant paced rhythm Previous testing Computed tomography scan of the abdomen-fluid collection of lower anterior abdominal wall Wound culture-Corynebacterium striatum, Klebsiella pneumoniae, Assessment: -Hypotension from acute cardiorenal syndrome -Acute lower abdominal wall fluid collection, JESSIKA drain in place, with cultures growing Klebsiella Pneumoniae and Corynebacterium Stratum., From last admission -Status post-incarcerated abdominal ventral wall hernia with small bowel, leading to repair of the same, -Acute on Chronic congestive heart failure from diastolic dysfunction EF 65- 70%,, remains on dobutamine and Lasix drip, slow to respond -Acute on Chronic cor pulmonale, exacerbation, slow to respond -Severe secondary pulmonary hypertension from CHF -Hypertensive heart disease -Moderate mitral regurgitation, severe tricuspid regurgitation, mitral valve prolapse, nontraumatic -GERD -Hyperlipidemia -Essential hypertension, history of -Primary osteoarthritis -Chronic diverticulosis -Morbid obesity BMI 54.5 -Possibly obesity hypoventilation syndrome -Biventricular pacemaker -Metabolic acidosis from acute kidney injury related -Depressive disorder unspecified, started on Remeron Plan: -Remains on Lasix drip and dobutamine. Continues to be negative fluid balance. We talked with the patient. Appears to be rather low.
[2019-04-09] MEDS: FUROSEMIDE 100 MG in SODIUM CHLORIDE 0.9% 90 ML IV SCH (06:06)
[2019-04-09] MEDS: PANTOPRAZOLE 40 MG TABLET PO SCH (06:07)
[2019-04-09] MEDS: SODIUM CHLORIDE 0.9% 1,000 ML IV SCH (06:07)
[2019-04-09 07:41] LABS: Calcium 8.3 mg/dL (8.4-10.2)
--- NOTE | 2019-04-09 09:13 | P.PN ---
Subjective Patient is seen in follow-up for acute kidney injury. Renal function is a little worse today which is due to diuresis. Creatinine 1.99 today. Still quite edematous. She is maintained on Lasix drip at 5 mL an hour along with dobutamine. She is nonoliguric. Oral intake is fair. Denies vomiting or diarrhea. Vital signs are stable. General: The patient appeared well nourished and normally developed. HEENT: Head exam is unremarkable. Neck is without jugular venous distension. LUNGS: Breath sounds decreased. HEART: Rate and Rhythm are regular. First and second heart sounds normal. No murmurs, rubs or gallops. ABDOMEN: Abdominal exam reveals normal bowel sounds. Non-tender and non- distended. EXTREMITITES: 2+ edema. Objective - Vital Signs Vital signs: Vital Signs Temp 98 F 04/09/19 00:00 Pulse 79 04/09/19 04:00 Resp 18 04/09/19 04:00 BP 114/76 04/09/19 04:00 Pulse Ox 96 04/09/19 04:00 Intake & Output 04/08/19 04/09/19 04/09/19 18:59 06:59 18:59 Intake Total 760 479.417 0 Output Total 0 750 Balance 760 -270.583 0 Weight 121.5 kg Intake: Intake, IV Titration 220 59.417 Amount Furosemide 100 mg In 100 59.417 Sodium Chloride 0.9% 90 ml @ 5 MG/HR 5 mls/hr IV .Q20H DOC Rx#:[id number] Sodium Chloride 0.9% 1, 120 000 ml @ 20 mls/hr IV . Q24H DOC Rx#:[id number] Oral 540 420 0 Output: Drainage 0 0 Left Upper Abdomen 0 0 Urine 750 Other: Voiding Method Indwelling Catheter Indwelling Catheter ABP, PAP, CO, CI - Last Documented Arterial Blood Pressure 100/71 - Labs CBC & Chem 7: 04/06/19 05:07 04/09/19 06:41 Labs: Abnormal Lab Results - Last 24 Hours (Table) 04/09/19 Range/Units 06:41 BUN 57 H (7-17) mg/dL Creatinine 1.99 H (0.52-1.04) mg/dL Calcium 8.3 L (8.4-10.2) mg/dL Microbiology - Last 24 Hours (Table) 04/04/19 11:45 Gram Stain - Final Aspirate Body Fluid Culture - Final Corynebacterium striatum Assessment and Plan Plan: Assessment: 1. Acute kidney injury mostly prerenal secondary to cardiorenal syndrome. Renal function a little worse due to diuresis. Creatinine 1.99 today. 2. Volume overload. 3. Acute on chronic diastolic CHF with severe mitral and tricuspid regurgitation. 4. Severe pulmonary hypertension. 5. Intra-abdominal abscess requiring tube drainage. Maintained on IV antibiotics. 6. Hypomagnesemia secondary to diuresis. Better. Plan: Maintain Lasix drip at 5 mL an hour. Add metolazone 5 mg once daily. Continue to monitor renal function and urine output. Repeat electrolytes in the morning. Hold amlodipine for systolic blood pressure less than 120. Check chest x-ray.
[2019-04-09] MEDS: amLODIPine 2.5 MG TAB PO SCH (09:56)
[2019-04-09] MEDS: METOPROLOL TARTRATE 25 MG TAB PO SCH ×2 (09:56→20:49)
[2019-04-09] MEDS: FLUCONAZOLE 100 MG TAB PO SCH (09:56)
[2019-04-09] MEDS: METOLAZONE 5 MG TAB PO SCH (10:12)
--- NOTE | 2019-04-09 10:51 | XR ---
EXAMINATION TYPE: XR chest 1V DATE OF EXAM: 04/09/2019 COMPARISON: 04/06/2019 HISTORY: Shortness of breath TECHNIQUE: Single frontal view of the chest is obtained. FINDINGS: Multiple cardiac leads are seen. Right-sided central line suggested. Heart is enlarged and there is bilateral consolidation and pleural effusion greater on the right with interstitial pattern . There is prominence or consolidation along the right margin of the heart border. IMPRESSION: 1. Diffuse pleural-parenchymal changes are stable related for CHF versus pneumonia.
--- NOTE | 2019-04-09 13:33 | P.PN ---
Subjective Progress Note Date: 04/09/19 Principal diagnosis: Acute exacerbation of diastolic congestive heart failure 68-year-old female patient of Dr. Cooper, with past medical history of chronic congestive heart failure with diastolic dysfunction, chronic A. fib not on chronic anticoagulation for history of GI bleeding, cardiomyopathy with permanent pacemaker implantation, anxiety, depression, GERD/reflux, hypert ension, hyperlipidemia, previous history of CVA, morbid obesity, gait dysfunction. In January 2019 patient was hospitalized for acute abdominal pain and was found to have an incarcerated umbilical hernia that contained multiple bowel loops. She underwent surgery for strangulated ventral hernia repair, patient had recovered and was sent to [facility] on Cipro and Flagyl for 1 week. In February while working with physical therapy there was any drainage noted from the abdominal wound, patient was hospitalized again, wound culture positive for Klebsiella pneumonia. She was treated with Unasyn, she underwent ultrasound guided continuous catheter placement for abdominal fluid collection, she was discharged back to [facility] with Rocephin infusions. On 04/01/2019 patient presented to the emergency department with low blood pressure readings, and she had been complaining of generalized weakness, fatigue 's been progressive. Patient is also admitted to shortness of breath when lying flat. She states that she had had some bilious vomiting, nausea, she had reached oral intake, denied any cough or congestion, no chest pain. Denied any diarrhea, denied any abdominal pain, umbilical percutaneous drain is still in place with small amount of bilious drainage. According to the nursing staff show blood pressures were acceptable however subsequently patient did become hypotensive with a systolic blood pressures as low as 50-80. Chest x-ray showed cardiomegaly, pulmonary venous hypertension and early interstitial edema, volume overload. EKG showed the ventricular paced rhythm, labs were reviewed showing low blood cell count of 10.8, hemoglobin of 12.1, INR 1.4, sodium is 138, potassium is 4.8, chloride is 108, CO2 17, BUN is 50 creatinine is 2.25, troponins were negative 2, proBNP was 53,200, urinalysis showed evidence of large amount of leuks, bacteria and white blood cells. Patient has received a dose of Rocephin, she has been started on dobutamine per cardiology recommendations, echocardiogram is pending, currently blood pressures have improved, 100/73, patient is in A. fib with a controlled rate, room air pulse ox is 99%. She is awaiting a bed in the intensive care unit Patient was reevaluated today on 04/02/2019, patient remains on Dobutrex, remains on Lasix drip which was recommended by cardiology. She is on 10 mg of Lasix per hour. And Dobutrex at 5 mcg/kg/m. Feeling better, breathing easier, she seems to have excellent urine output with the Lasix drip. Patient remains empirically on antibiotics, cultures are pending. Shortly after the patient arrived to the ICU yesterday, I placed a right subclavian central line, and a left brachial arterial line. Her labs today showed WBC count of 8.3 hemoglobin is 10.4, electrolytes are normal however she has slightly low bicarb of 18 and her renal functioning showed a BUN of 49 and creatinine 2.0. Slightly improved compared to yesterday, and I believe that's mostly with Dobutrex. Patient is not requiring any pressors, she is only on inotropic support. Echocardiogram showed good LV function. However she has significantly elevated right-sided ventricular systolic pressure of 1:15. She has severe mitral regurgitation and severe tricuspid regurgitation. Reevaluated today on 04/03/2019, patient remains on Lasix drip at 10 mg per hour remains on dobutamine at 5 mcg/kg/m. Continues to have excellent urine output, patient is negative over 3-1/2 L in the last 3 days. Her renal functioning is surprisingly better. Patient is on 2 L nasal cannula, comfortable, in no distress, blood pressure is marginal but not requiring any pressors. Remains mostly on inotropic support/dobutamine. WBC count is 7.5 hemoglobin is 10.3 left lites are normal BUN is down to 47 creatinine is down to 1.88. Blood cultures are negative. Urine is showing some Frida. Patient is being followed by infectious disease on the case. Reevaluated today on 04/04/2019, patient remains in the ICU, remains on dobutamine 5 mcg/kg/m, and remains on Lasix at 10 mg per hour. Patient continues to have significant negative fluid balance, her renal functioning is continuing to improve, remains on 2 L nasal cannula, breathing is easier, and she was seen by cardiology today, I recommended that she stays on the Peter X and Lasix drip at 10 mg per hour. Patient is hemodynamically stable, not requiring any pressors. Her PICC line was checked yesterday and seems to be functional. Her CBC today showed a hemoglobin of 10.3 stable WBC count is 7.7 and a crit are normal BUN is 46 and creatinine is improving down to 1.84 from 2.25 on admission Reevaluated today on 04/05/2019, remains in the ICU,remains on dobutamine at 5 mcg/kg/m, remains on Lasix at 10 mg per hour. Patient is feeling better, however her chest x-ray continues to show evidence of interstitial edema. Renal functioning seems to be improving. And that is mostly because of better renal perfusion while on Dobutrex. Remains in a negative fluid balance, she is over 6 L negative in the last few days. Hence I would recommend that we continue the same medications including dobutamine and Lasix drip.CBC is relatively normal electrodes are normal BUN is 49 creatinine is 1.71. Reevaluated today on 04/06/2019, patient remains in the ICU, remains on dobutamine and Lasix drip. However today I cut down the dose of dobutamine to 2.5 mcg/kg/m, and I cut down the Lasix to 5 mg per hour. Patient is clinically better, breathing easier, chest x-ray is showing improvement in her pulmonary edema, and her renal functioning seems to be steadily improving with Dobutrex. Patient remains in a negative fluid balance. On 04/07/2019 patient seen in follow-up on selective care unit, she is resting in bed, she is somnolent, but easily arousable, appears to be very fatigued, oral membranes are dry, patient has her lunch sitting in front of her she hasn't touched it, she states she is not feeling all that great, although she denies any specific complaints, is on 2 L of oxygen, her pulse ox is 98%, she appears to be quite fatigued, she is afebrile, hemodynamics are stable, she remains on dobutamine drip currently at 2-1/2 mics per kilo per minute, and he remains on Lasix drip at 10 mg per hour, is maintaining negative fluid balance, and -3916 mL over last 24 hours, lower extremity and abdominal wall edema improving, no nausea or vomiting, percutaneous drain in the abdomen draining minimal amount of bilious green drainage, fluid culture was positive for Corynebacterium striate him, urine culture showed Frida albicans. ID service is following, and patient is currently on cefepime and fluconazole for antibiotic coverage. On sounds are positive for fine rales and bilateral lower bases. On 04/09/2019 patient seen in follow-up on selective care unit, she is awake and alert, in no acute distress. Remains on dopamine drip at 20 half mics per kilo per minute, and Lasix drip has been cut back to 5 mg per hour. Denies any carlene rtness of breath, is currently on 3 L of oxygen with a pulse ox of 94-96%, afebrile, hemodynamically patient is stable. His chest x-ray has been reviewed showing diffuse pleural parenchymal changes, bilateral consolidation and pleural effusions greater on the right with interstitial pattern. Fluid volume status is improving, less edema in lower extremities, weight is down by 3.5 kg in the last 24 hours, today's labs have been reviewed, electrolytes are within normal limits, B1 is 57 creatinine is 1.9. No fever or chills. Complaints of abdominal pain, body fluid culture from the abdominal drain was positive for Corynebacterium striate him, ID service following a patient remains on Diflucan for antibiotic coverage. Objective - Vital Signs Vital signs: Vital Signs Temp 97.7 F 04/09/19 11:56 Pulse 82 04/09/19 11:56 Resp 14 04/09/19 11:56 BP 118/61 04/09/19 11:56 Pulse Ox 94 L 04/09/19 08:10 Intake & Output 04/08/19 04/09/19 04/09/19 18:59 06:59 18:59 Intake Total 760 479.417 0 Output Total 0 750 Balance 760 -270.583 0 Weight 121.5 kg Intake: Intake, IV Titration 220 59.417 Amount Furosemide 100 mg In 100 59.417 Sodium Chloride 0.9% 90 ml @ 5 MG/HR 5 mls/hr IV .Q20H DOC Rx#:[id number] Sodium Chloride 0.9% 1, 120 000 ml @ 20 mls/hr IV . Q24H DOC Rx#:[id number] Oral 540 420 0 Output: Drainage 0 0 Left Upper Abdomen 0 0 Urine 750 Other: Voiding Method Indwelling Catheter Indwelling Catheter Indwelling Catheter ABP, PAP, CO, CI - Last Documented Arterial Blood Pressure 100/71 - Exam GENERAL EXAM: pleasant, weak, 68-year-old obese white female, resting quietly in bed, with a room air pulse ox of 99% in no acute distress HEAD: Normocephalic/atraumatic. EYES: Normal reaction of pupils, equal size. Conjunctiva pink, sclera white. NOSE: Clear with pink turbinates. THROAT: No erythema or exudates. NECK: No masses, no JVD, no thyroid enlargement, no adenopathy. CHEST: No chest wall deformity. Symmetrical expansion. LUNGS: Equal air entry with no crackles, wheeze, rhonchi or dullness. CVS: Irregular rate and rhythm, normal S1 and S2, no gallops, no murmurs, no rubs ABDOMEN: Soft, nontender. No hepatosplenomegaly, normal bowel sounds, no guarding or rigidity. Abdomen is nontender, obese, there is intra umbilical drain with small amount of bilious drainage EXTREMITIES: No clubbing, chronic lower extremity edema involving bilateral low er extremities, with some wrinkles, 2+ pitting no cyanosis, 2+ pulses and upper and lower extremities. MUSCULOSKELETAL: Muscle strength and tone normal. SPINE: No scoliosis or deformity SKIN: No rashes CENTRAL NERVOUS SYSTEM: Alert and oriented -3. No focal deficits, tone is normal in all 4 extremities. PSYCHIATRIC: Alert and oriented -3. Appropriate affect. Intact judgment and insight. - Labs CBC & Chem 7: 04/06/19 05:07 04/09/19 06:41 Labs: Abnormal Lab Results - Last 24 Hours (Table) 04/09/19 Range/Units 06:41 BUN 57 H (7-17) mg/dL Creatinine 1.99 H (0.52-1.04) mg/dL Calcium 8.3 L (8.4-10.2) mg/dL Microbiology - Last 24 Hours (Table) 04/04/19 11:45 Gram Stain - Final Aspirate Body Fluid Culture - Final Corynebacterium striatum Assessment and Plan Plan: Assessment: #1. Hypotension, could be related to possibility of underlying sepsis, and acute exacerbation of chronic congestive heart failure with diastolic dysfunction #2. Acute kidney injury related to cardiorenal syndrome, improving with inotr opes #3. Acute urinary tract infection, urine cultures positive for Frida albicans #4. Recent hospitalization in February for intra-abdominal abscess, with placement of ultrasound-guided percutaneous drain, with wound cultures positive for Klebsiella pneumonia patient was discharged back to subacute rehab with Rocephin infusions. This was readjusted by interventional radiology 2 days ago, and the fluid culture from this admission is positive for Corynebacterium striata #5. Recent surgery in January 2019 for repair of incarcerated internal hernia with secondary peritonitis, status post resection of a portion of the bowel, at that time patient completed a course of Cipro and Flagyl for 1 week at the [facility] post discharge #6. Chronic A. fib, not on anticoagulation related to history of GI bleeding #7. Severe pulmonary hypertension #8. Morbid obesity #9. Non-rheumatic mitral regurgitation, moderate in severity and severe tricuspid regurgitation #10. Hypertension #11. Hyperlipidemia #12. GERD/reflux #13. Severe osteoarthritis #14. Suspect chronic obesity hypoventilation syndrome/obstructive sleep apnea #15. Chronic medical deconditioning #16. Chronic diverticulosis Plan: Patient remains on dobutamine and Lasix drip, fluid volume status continues to improve, breathing has improved, she denies any difficulty breathing, today's chest x-ray reviewed still showing bibasilar effusions and consolidation, patient remains on empiric antibiotics, she's been afebrile. Patient is maintaining negative fluid balance, she is very weak, her appetite is poor, overall prognosis is guarded. I performed a history & physical examination of the patient and discussed their management with my nurse practitioner, Ct Palomares. I reviewed the nurse practitioner's note and agree with the documented findings and plan of care. Lung sounds are positive for diminished breath sounds. The findings and the impression was discussed with the patient. I attest to the documentation by the nurse practitioner. Time with Patient: Less than 30
[2019-04-09] MEDS: MIRTAZAPINE 15 MG TAB PO SCH (20:49)
--- NOTE | 2019-04-09 22:20 | PN ---
PROGRESS NOTE DATE OF SERVICE: 04/09/2019. REASON FOR FOLLOWUP VISIT: 1. UTI. 2. Abdominal wall seroma. INTERVAL HISTORY: The patient is currently afebrile. She is breathing comfortably. Denies having any chest pain. No cough. No abdominal pain. No nausea, vomiting or diarrhea. PHYSICAL EXAMINATION: Blood pressure 109/70 with a pulse of 91. Temperature 98.5. She is 96% on 3 L nasal cannula. General description is an elderly female, lying in bed in no distress. Respiratory system: Unlabored breathing. Clear to auscultation anteriorly. Heart S1, S2. Regular rate and rhythm. ABDOMEN: Soft, no tenderness. The drainage catheter currently with no drainage. LABS: BUN of 57, creatinine is 1.99. DIAGNOSTIC IMPRESSION AND PLAN: 1. Patient with Frida albicans urinary tract infection adequately treated with Diflucan, will be discontinued on discharge. 2. Patient did have abdominal wall seroma, culture with coagulase negative Staph likely contamination as there is no output in the drainage catheter. Should be discontinued to decrease risk of any further infection. 3. Continue supportive care. MMODL / IJN: [id number] /
--- NOTE | 2019-04-10 01:13 | P.PN ---
Progress Note - Text Progress Note Date: 04/09/19 Chief Complaint: Feeling unwell Interval history: This is a 68-year-old patient who follows Dr. Cooper. test department helper Dr. SHELL Dawn. extensive medical history. Chronic stable medical conditions include GERD, hyperlipidemia, hypertension, osteoarthritis, had a stroke in 2017 left her with a slow speech, diverticulosis, PTSD ,depression, CHF EF of 65-70%, chronic cor pulmonale, severe secondary pulmonary hypertension and atrial fibrillation. 2 months ago-underwent small bowel resection, repair of strangulated ventral hernia and incarcerated umbilical hernia and partial omentectomy. On March 20 admitted with abdominal pain computed tomography scan-showed a large subcutaneous fluid collection on the lower anterior abdominal wall . Drain was placed. Cultures were positive for Corynebacterium stratum and Klebsiella pneumoniae. Treat with IV ceftriaxone. Discharged on March 25 to the [facility]. Patient now presents with increasing weakness tiredness fatigue. Decreased appetite. Some shortness of breath. Increasing lower extremity swelling. The patient running low. Occasional bowel movement. Feeling tired and rundown. Initial blood pressure was in the 80s. Admitted to ICU. Started on IV fluids and dobutamine. Denies any obvious fever and chills. Admitted with-hypotension, acute kidney injury from a cardiorenal syndrome, acute on chronic cor pulmonale exacerbation. Diagnosed with depression. Was started on Lasix and dobutamine drip. Today-. Remains a Lasix drip. Dobutamine drip was discontinued. Oral intake remains poor. Brothers is visiting.. Feels low. Review of systems: Was done for constitutional, cardiovascular, GI, pulmonary. relevant finding as above Active Medications Amlodipine Besylate (Norvasc) 2.5 mg PO DAILY [facility] Last Admin: 04/09/19 09:56 Dose: 2.5 mg Documented by: Fluconazole (Diflucan) 100 mg PO DAILY [facility] Last Admin: 04/09/19 09:56 Dose: 100 mg Documented by: Heparin Sodium (Porcine) (Heparin) 5,000 unit SQ Q8HR [facility] Last Admin: 04/09/19 16:32 Dose: 5,000 unit Documented by: Sodium Chloride (Saline 0.9%) 1,000 mls @ 20 mls/hr IV .Q24H [facility] Last Admin: 04/09/19 06:07 Dose: Not Given Documented by: Furosemide 100 mg/ Sodium (Chloride) 100 mls @ 5 mls/hr IV .Q20H [facility] Last Admin: 04/09/19 06:06 Dose: 5 mg/hr, 5 mls/hr Documented by: Metolazone (Zaroxolyn) 5 mg PO DAILY [facility] Last Admin: 04/09/19 10:12 Dose: 5 mg Documented by: Metoprolol Tartrate (Lopressor) 25 mg PO BID [facility] Last Admin: 04/09/19 20:49 Dose: 25 mg Documented by: Mirtazapine (Remeron) 7.5 mg PO HS [facility] Last Admin: 04/09/19 20:49 Dose: 7.5 mg Documented by: Nitroglycerin (Nitrostat) 0.4 mg SUBLINGUAL Q5M PRN PRN Reason: Chest Pain Ondansetron HCl (Zofran) 4 mg IVP Q6HR PRN PRN Reason: Nausea And Vomiting Last Admin: 04/07/19 20:04 Dose: 4 mg Documented by: Pantoprazole Sodium (Protonix) 40 mg PO AC-BRKFST [facility] Last Admin: 04/09/19 06:07 Dose: 40 mg Documented by: Tramadol HCl (Ultram) 50 mg PO Q12HR PRN PRN Reason: Pain Last Admin: 04/08/19 08:40 Dose: 50 mg Documented by: Physical examination: VITAL SIGNS: 97.7, 82, 14, 108/61, on 3 L GENERAL: Laying in bed, awake, tired EYES: Pupils equal. Conjunctiva pale HEENT: External appearance of nose and ears normal, oral cavity grossly normal. NECK: Short and thick, JVD unable to assess; masses not palpable. HEART: Heart sounds muffled; edema decreased LUNGS: Respiratory rate normal; distant breath sounds. ABDOMEN: Soft, tender, JESSIKA drain in the abdominal wall,, liver spleen not palpable, no masses palpable. Bowel sounds present PSYCH: AO 3, motor affect low INVESTIGATIONS, reviewed in the clinical context: Potassium 4 bun 57 and creatinine 1.99 Previous testing White count 10.8 hemoglobin 12.1 ProTime 14.4 potassium 4.8 BUN 50 creatinine 2.25 Bun 27 creatinine 0.97 on March 23 Chest x-ray film personally reviewed by -cardiomegaly, questionable right- sided infiltrate EKG tracing personally reviewed by me-Wendler paced rhythm Previous testing Computed tomography scan of the abdomen-fluid collection of lower anterior abdominal wall Wound culture-Corynebacterium striatum, Klebsiella pneumoniae, Assessment: -Hypotension from acute cardiorenal syndrome -Acute lower abdominal wall fluid collection, JESSIKA drain in place, with cultures growing Klebsiella Pneumoniae and Corynebacterium Stratum., From last admission -Status post-incarcerated abdominal ventral wall hernia with small bowel, leading to repair of the same, -Acute on Chronic congestive heart failure from diastolic dysfunction EF 65- 70%,, remains on dobutamine and Lasix drip, slow to respond -Acute on Chronic cor pulmonale, exacerbation, slow to respond -Severe secondary pulmonary hypertension from CHF -Hypertensive heart disease -Moderate mitral regurgitation, severe tricuspid regurgitation, mitral valve prolapse, nontraumatic -GERD -Hyperlipidemia -Essential hypertension, history of -Primary osteoarthritis -Chronic diverticulosis -Morbid obesity BMI 54.5 -Possibly obesity hypoventilation syndrome -Biventricular pacemaker -Metabolic acidosis from acute kidney injury related -Depressive disorder unspecified, started on Remeron Plan: -Remains on Lasix drip and dobutamine discontinued.. Continues to be negative fluid balance. Patient oral intake is poor. Did readdress again. Prognosis remains not to be good..
[2019-04-10] MEDS: PANTOPRAZOLE 40 MG TABLET PO SCH (06:09)
[2019-04-10] MEDS: FUROSEMIDE 100 MG in SODIUM CHLORIDE 0.9% 90 ML IV SCH (06:17)
[2019-04-10] MEDS: SODIUM CHLORIDE 0.9% 1,000 ML IV SCH (06:17)
[2019-04-10 08:18] LABS: Calcium 8.9 mg/dL (8.4-10.2); Magnesium 2.1 mg/dL (1.6-2.3)
[2019-04-10 08:22] LABS: Potassium 5.3 mmol/L (3.5-5.1)
[2019-04-10 09:59] LABS: Glucose,Whole Blood 67 mg/dL (75-99)
--- NOTE | 2019-04-10 10:26 | CT ---
EXAMINATION TYPE: CT brain wo con for TPA DATE OF EXAM: 04/10/2019 COMPARISON: 10/07/2016 HISTORY: Mental status changes CT DLP: 1099.[address] of the brain was performed. The ventricles, basal cisterns and sulci overlying the cerebral convexities demonstrate mild enlargem ent. Remote insult left frontal lobe. There is no evidence for intracranial hemorrhage or sulcal effacement. There is decreased attenuation about the periventricular white matter and deep white matter of both c erebral hemispheres, compatible with chronic small vessel ischemia. Differential diagnosis does inclu de demyelination. No mass effects are seen.No midline shift. Osseous calvarium is intact. If symptoms persist consider MRI. IMPRESSION: 1. Age related atrophic and chronic small vessel ischemic change without acute intracranial process s een at this time.
[2019-04-10 10:28] LABS: Glucose,Whole Blood 134 mg/dL (75-99)
--- NOTE | 2019-04-10 10:36 | P.PN ---
Subjective Patient is seen in follow-up for acute kidney injury. Renal function is worse which is due to diuresis. Creatinine 2.2 today. Still quite edematous. She is maintained on Lasix drip at 5 mL an hour. Dobutamine discontinued April 09. She is nonoliguric. Patient's mentation is more depressed today. She doesn't respond much to verbal commands. Blood pressure stable. Blood glucose was 62. Code stroke is being called. Vital signs are stable. General: The patient appeared well nourished and normally developed. HEENT: Head exam is unremarkable. Neck is without jugular venous distension. LUNGS: Breath sounds decreased. HEART: Rate and Rhythm are regular. First and second heart sounds normal. No murmurs, rubs or gallops. ABDOMEN: Abdominal exam reveals normal bowel sounds. Non-tender and non- distended. EXTREMITITES: 2+ edema. Objective - Vital Signs Vital signs: Vital Signs Temp 98.7 F 04/10/19 00:21 Pulse 64 04/10/19 00:21 Resp 16 04/10/19 04:19 BP 128/78 04/10/19 00:21 Pulse Ox 92 L 04/10/19 00:21 Intake & Output 04/09/19 04/10/19 04/10/19 18:59 06:59 18:59 Intake Total 240 Output Total 675 900 Balance -435 -900 Weight 119 kg Intake: Oral 240 Output: Urine 675 900 Other: Voiding Method Indwelling Catheter Indwelling Catheter ABP, PAP, CO, CI - Last Documented Arterial Blood Pressure 100/71 - Labs CBC & Chem 7: 04/06/19 05:07 04/10/19 06:15 Labs: Abnormal Lab Results - Last 24 Hours (Table) 04/10/19 04/10/19 04/10/19 Range/Units 06:15 09:57 10:17 Potassium 5.3 H (3.5-5.1) mmol/L BUN 63 H (7-17) mg/dL Creatinine 2.20 H (0.52-1.04) mg/dL Glucose 62 L (74-99) mg/dL POC Glucose (mg/dL) 67 L 134 H (75-99) mg/dL Assessment and Plan Plan: Assessment: 1. Acute kidney injury mostly prerenal secondary to cardiorenal syndrome. Renal function worse due to diuresis. Creatinine 2.2 today. 2. Volume overload. 3. Acute on chronic diastolic CHF with severe mitral and tricuspid regurgitation. 4. Severe pulmonary hypertension. 5. Intra-abdominal abscess requiring tube drainage. Maintained on IV antibiotics. 6. Hypomagnesemia secondary to diuresis. Better. Plan: Discontinue Lasix drip. Start IV Lasix 60 mg twice daily. Maintain metolazone. Continue to monitor renal function and urine output. Repeat electrolytes in the morning. Hold amlodipine for systolic blood pressure less than 120. Follow-up brain CT.
[2019-04-10] MEDS: FLUCONAZOLE 100 MG TAB PO SCH (10:38)
[2019-04-10] MEDS: amLODIPine 2.5 MG TAB PO SCH (10:38)
[2019-04-10] MEDS: METOPROLOL TARTRATE 25 MG TAB PO SCH ×2 (10:38→21:21)
[2019-04-10] MEDS: METOLAZONE 5 MG TAB PO SCH (10:38)
[2019-04-10] MEDS: HEPARIN SODIUM,PORCINE 5,000 UNIT/ML 1 ML VIAL SQ SCH ×4 (10:40→23:39)
[2019-04-10 12:10] LABS: Glucose,Whole Blood 91 mg/dL (75-99)
[2019-04-10] MEDS: FUROSEMIDE 10 MG/ML 10 ML VIAL IV SCH ×2 (12:16→21:20)
--- NOTE | 2019-04-10 12:39 | P.PN ---
Subjective Progress Note Date: 04/10/19 Principal diagnosis: Acute exacerbation of diastolic congestive heart failure 68-year-old female patient of Dr. Cooper, with past medical history of chronic congestive heart failure with diastolic dysfunction, chronic A. fib not on chronic anticoagulation for history of GI bleeding, cardiomyopathy with permanent pacemaker implantation, anxiety, depression, GERD/reflux, hypert ension, hyperlipidemia, previous history of CVA, morbid obesity, gait dysfunction. In January 2019 patient was hospitalized for acute abdominal pain and was found to have an incarcerated umbilical hernia that contained multiple bowel loops. She underwent surgery for strangulated ventral hernia repair, patient had recovered and was sent to [facility] on Cipro and Flagyl for 1 week. In February while working with physical therapy there was any drainage noted from the abdominal wound, patient was hospitalized again, wound culture positive for Klebsiella pneumonia. She was treated with Unasyn, she underwent ultrasound guided continuous catheter placement for abdominal fluid collection, she was discharged back to [facility] with Rocephin infusions. On 04/01/2019 patient presented to the emergency department with low blood pressure readings, and she had been complaining of generalized weakness, fatigue 's been progressive. Patient is also admitted to shortness of breath when lying flat. She states that she had had some bilious vomiting, nausea, she had reached oral intake, denied any cough or congestion, no chest pain. Denied any diarrhea, denied any abdominal pain, umbilical percutaneous drain is still in place with small amount of bilious drainage. According to the nursing staff show blood pressures were acceptable however subsequently patient did become hypotensive with a systolic blood pressures as low as 50-80. Chest x-ray showed cardiomegaly, pulmonary venous hypertension and early interstitial edema, volume overload. EKG showed the ventricular paced rhythm, labs were reviewed showing low blood cell count of 10.8, hemoglobin of 12.1, INR 1.4, sodium is 138, potassium is 4.8, chloride is 108, CO2 17, BUN is 50 creatinine is 2.25, troponins were negative 2, proBNP was 53,200, urinalysis showed evidence of large amount of leuks, bacteria and white blood cells. Patient has received a dose of Rocephin, she has been started on dobutamine per cardiology recommendations, echocardiogram is pending, currently blood pressures have improved, 100/73, patient is in A. fib with a controlled rate, room air pulse ox is 99%. She is awaiting a bed in the intensive care unit Patient was reevaluated today on 04/02/2019, patient remains on Dobutrex, remains on Lasix drip which was recommended by cardiology. She is on 10 mg of Lasix per hour. And Dobutrex at 5 mcg/kg/m. Feeling better, breathing easier, she seems to have excellent urine output with the Lasix drip. Patient remains empirically on antibiotics, cultures are pending. Shortly after the patient arrived to the ICU yesterday, I placed a right subclavian central line, and a left brachial arterial line. Her labs today showed WBC count of 8.3 hemoglobin is 10.4, electrolytes are normal however she has slightly low bicarb of 18 and her renal functioning showed a BUN of 49 and creatinine 2.0. Slightly improved compared to yesterday, and I believe that's mostly with Dobutrex. Patient is not requiring any pressors, she is only on inotropic support. Echocardiogram showed good LV function. However she has significantly elevated right-sided ventricular systolic pressure of 1:15. She has severe mitral regurgitation and severe tricuspid regurgitation. Reevaluated today on 04/03/2019, patient remains on Lasix drip at 10 mg per hour remains on dobutamine at 5 mcg/kg/m. Continues to have excellent urine output, patient is negative over 3-1/2 L in the last 3 days. Her renal functioning is surprisingly better. Patient is on 2 L nasal cannula, comfortable, in no distress, blood pressure is marginal but not requiring any pressors. Remains mostly on inotropic support/dobutamine. WBC count is 7.5 hemoglobin is 10.3 left lites are normal BUN is down to 47 creatinine is down to 1.88. Blood cultures are negative. Urine is showing some Frida. Patient is being followed by infectious disease on the case. Reevaluated today on 04/04/2019, patient remains in the ICU, remains on dobutamine 5 mcg/kg/m, and remains on Lasix at 10 mg per hour. Patient continues to have significant negative fluid balance, her renal functioning is continuing to improve, remains on 2 L nasal cannula, breathing is easier, and she was seen by cardiology today, I recommended that she stays on the Peter X and Lasix drip at 10 mg per hour. Patient is hemodynamically stable, not requiring any pressors. Her PICC line was checked yesterday and seems to be functional. Her CBC today showed a hemoglobin of 10.3 stable WBC count is 7.7 and a crit are normal BUN is 46 and creatinine is improving down to 1.84 from 2.25 on admission Reevaluated today on 04/05/2019, remains in the ICU,remains on dobutamine at 5 mcg/kg/m, remains on Lasix at 10 mg per hour. Patient is feeling better, however her chest x-ray continues to show evidence of interstitial edema. Renal functioning seems to be improving. And that is mostly because of better renal perfusion while on Dobutrex. Remains in a negative fluid balance, she is over 6 L negative in the last few days. Hence I would recommend that we continue the same medications including dobutamine and Lasix drip.CBC is relatively normal electrodes are normal BUN is 49 creatinine is 1.71. Reevaluated today on 04/06/2019, patient remains in the ICU, remains on dobutamine and Lasix drip. However today I cut down the dose of dobutamine to 2.5 mcg/kg/m, and I cut down the Lasix to 5 mg per hour. Patient is clinically better, breathing easier, chest x-ray is showing improvement in her pulmonary edema, and her renal functioning seems to be steadily improving with Dobutrex. Patient remains in a negative fluid balance. On 04/07/2019 patient seen in follow-up on selective care unit, she is resting in bed, she is somnolent, but easily arousable, appears to be very fatigued, oral membranes are dry, patient has her lunch sitting in front of her she hasn't touched it, she states she is not feeling all that great, although she denies any specific complaints, is on 2 L of oxygen, her pulse ox is 98%, she appears to be quite fatigued, she is afebrile, hemodynamics are stable, she remains on dobutamine drip currently at 2-1/2 mics per kilo per minute, and he remains on Lasix drip at 10 mg per hour, is maintaining negative fluid balance, and -3916 mL over last 24 hours, lower extremity and abdominal wall edema improving, no nausea or vomiting, percutaneous drain in the abdomen draining minimal amount of bilious green drainage, fluid culture was positive for Corynebacterium striate him, urine culture showed Frida albicans. ID service is following, and patient is currently on cefepime and fluconazole for antibiotic coverage. On sounds are positive for fine rales and bilateral lower bases. On 04/09/2019 patient seen in follow-up on selective care unit, she is awake and alert, in no acute distress. Remains on dopamine drip at 20 half mics per kilo per minute, and Lasix drip has been cut back to 5 mg per hour. Denies any carlene rtness of breath, is currently on 3 L of oxygen with a pulse ox of 94-96%, afebrile, hemodynamically patient is stable. His chest x-ray has been reviewed showing diffuse pleural parenchymal changes, bilateral consolidation and pleural effusions greater on the right with interstitial pattern. Fluid volume status is improving, less edema in lower extremities, weight is down by 3.5 kg in the last 24 hours, today's labs have been reviewed, electrolytes are within normal limits, B1 is 57 creatinine is 1.9. No fever or chills. Complaints of abdominal pain, body fluid culture from the abdominal drain was positive for Corynebacterium striate him, ID service following a patient remains on Diflucan for antibiotic coverage. On 04/10/2019 patient seen in follow-up on selective care unit, this morning code stroke was called in regards to acute mental status change, and brain CT was obtained showing age-related atrophic and chronic small vessel ischemic changes without acute intracranial process, she was found to be hypoglycemic at the time, with the blood glucose of 67, which was treated. and her mentation improved, and is back to baseline, no lateralizing deficits, patient is moving all 4 extremities, no sensory deficits. No aphasia. Dobutamine has been discontinued, patient remains on Lasix drip at 5 ML per hour which is being transitioned to intermittent doses of Lasix per nephrology, is maintaining negative fluid balance, -1335 ML over last 24 hours, fluid volume status contin ues to improve, still has quite severe lower extremity edema, which has improved in the last several days. Remains on antibiotics for intra-abdominal abscess, today's labs have been reviewed, BNP was done only, normal CBC, it shows sodium of 139, potassium is 5.3, the rest of electrolytes were within normal limits, BUN was 63 and creatinine is up to 2.2. Patient denies any shortness of breath, no cough or congestion, no complaints of chest pain. Objective - Vital Signs Vital signs: Vital Signs Temp 98.7 F 04/10/19 00:21 Pulse 64 04/10/19 00:21 Resp 16 04/10/19 04:19 BP 128/78 04/10/19 00:21 Pulse Ox 92 L 04/10/19 00:21 Intake & Output 04/09/19 04/10/19 04/10/19 18:59 06:59 18:59 Intake Total 240 Output Total 675 900 600 Balance -711 -891 -221 Weight 119 kg Intake: Oral 240 Output: Urine 675 900 600 Other: Voiding Method Indwelling Catheter Indwelling Catheter ABP, PAP, CO, CI - Last Documented Arterial Blood Pressure 100/71 - Exam GENERAL EXAM: pleasant, weak, 68-year-old obese white female, resting quietly in bed, pulse ox of 92% on 3 L in no acute distress HEAD: Normocephalic/atraumatic. EYES: Normal reaction of pupils, equal size. Conjunctiva pink, sclera white. NOSE: Clear with pink turbinates. THROAT: No erythema or exudates. NECK: No masses, no JVD, no thyroid enlargement, no adenopathy. CHEST: No chest wall deformity. Symmetrical expansion. LUNGS: Equal air entry with no crackles, wheeze, rhonchi or dullness. CVS: Irregular rate and rhythm, normal S1 and S2, no gallops, no murmurs, no rubs ABDOMEN: Soft, nontender. No hepatosplenomegaly, normal bowel sounds, no guarding or rigidity. Abdomen is nontender, obese, there is intra umbilical drain with small amount of bilious drainage EXTREMITIES: No clubbing, chronic lower extremity edema involving bilateral lower extremities, with some wrinkles, 2+ pitting no cyanosis, 2+ pulses and upper and lower extremities. MUSCULOSKELETAL: Muscle strength and tone normal. SPINE: No scoliosis or deformity SKIN: No rashes CENTRAL NERVOUS SYSTEM: Alert and oriented -3. No focal deficits, tone is normal in all 4 extremities. PSYCHIATRIC: Alert and oriented -3. Appropriate affect. Intact judgment and insight. - Labs CBC & Chem 7: 04/06/19 05:07 04/10/19 06:15 Labs: Abnormal Lab Results - Last 24 Hours (Table) 04/10/19 04/10/19 04/10/19 Range/Units 06:15 09:57 10:17 Potassium 5.3 H (3.5-5.1) mmol/L BUN 63 H (7-17) mg/dL Creatinine 2.20 H (0.52-1.04) mg/dL Glucose 62 L (74-99) mg/dL POC Glucose (mg/dL) 67 L 134 H (75-99) mg/dL Assessment and Plan Plan: Assessment: #1. Hypotension, could be related to possibility of underlying sepsis, and acute exacerbation of chronic congestive heart failure with diastolic dysfunction, improved, patient has been off dobutamine drip #2. Acute kidney injury related to cardiorenal syndrome, improving with inotropes #3. Acute urinary tract infection, urine cultures positive for Frida albicans #4. Recent hospitalization in February for intra-abdominal abscess, with placement of ultrasound-guided percutaneous drain, with wound cultures positive for Klebsiella pneumonia patient was discharged back to subacute rehab with Rocephin infusions. This was readjusted by interventional radiology 2 days ago, and the fluid culture from this admission is positive for Corynebacterium striata #5. Recent surgery in January 2019 for repair of incarcerated internal hernia with secondary peritonitis, status post resection of a portion of the bowel, at that time patient completed a course of Cipro and Flagyl for 1 week at the [facility] post discharge #6. Chronic A. fib, not on anticoagulation related to history of GI bleeding #7. Severe pulmonary hypertension #8. Morbid obesity #9. Non-rheumatic mitral regurgitation, moderate in severity and severe tricuspid regurgitation #10. Hypertension #11. Hyperlipidemia #12. GERD/reflux #13. Severe osteoarthritis #14. Suspect chronic obesity hypoventilation syndrome/obstructive sleep apnea #15. Chronic medical deconditioning #16. Chronic diverticulosis Plan: Continue diuretic therapy per nephrology, dobutamine drip has been discontinued, vital signs are stable, no hypotension, patient did have an episode of altered mentation which was thought to be related to hypoglycemia, brain scan showed no acute changes. Mentation is back to baseline, her affect is blunt and depressed. Antibiotics per ID service recommendations. Pulmonary service will sign off and follow on as-needed basis. I performed a history & physical examination of the patient and discussed their management with my nurse practitioner, Ct Palomares. I reviewed the nurse practitioner's note and agree with the documented findings and plan of care. Lung sounds are positive for diminished breath sounds. The findings and the impression was discussed with the patient. I attest to the documentation by the nurse practitioner. Time with Patient: Less than 30
[2019-04-10 13:02] LABS: Glucose,Whole Blood 91 mg/dL (75-99)
[2019-04-10 17:08] LABS: Glucose,Whole Blood 87 mg/dL (75-99)
--- NOTE | 2019-04-10 18:10 | P.PN ---
Sherrie Farrar is a 68-year-old female with a history of persistent atrial fibrillation, chronic diastolic heart failure, hypertension, and dyslipidemia who was admitted to the ICU heart failure. She was placed on the dobutamine and Lasix drip. Yesterday we discontinued her dobutamine drip. Today nephrology switched from a Lasix drip to IV Lasix. Her creatinine and BUNs have been rising. Last night she had altered mental status and there was a concern for stroke however head CT did not show any acute abnormalities. Patient seen and examined resting in bed. States she does not want to get up, not interested in sitting up or getting into a chair. States her breathing is a little better. No chest pain. No dizziness. Labs reviewed, potassium 5.3, BUN 63, creatinine 2.2 Patient is afebrile, pulse in the 70s, respirations, saturation 97% on 3 L nasal cannula, blood pressure in the 100s over 70s Patient seen and examined lying in bed, in no acute distress Bilateral breath sounds diminished Heart is irregular, systolic murmur noted 1+ pitting edema bilaterally Impression Acute on chronic diastolic CHF Nonischemic cardiomyopathy Hypotension, improved, blood pressure stable LEAH on CKD, BUN and creatinine rising Chronic atrial fibrillation, not on anticoagulation due to history of brain bleed Obesity Cor pulmonale with severe pulmonary hypertension and right-sided heart failure Moderate MR Severe TR Hypertension Dyslipidemia PAZ Plan Agree with switching to IV Lasix in view of worsening renal function Continue metoprolol for rate control Discontinue low dose amlodipine Objective - Vital Signs Vital signs: Vital Signs Temp 98.5 F 04/10/19 15:11 Pulse 103 H 04/10/19 15:11 Resp 18 04/10/19 15:11 BP 101/75 04/10/19 15:11 Pulse Ox 97 04/10/19 15:11 Intake & Output 04/09/19 04/10/19 04/10/19 18:59 06:59 18:59 Intake Total 240 Output Total 675 900 950 Balance -435 900 -387 Weight 119 kg Intake: Oral 240 Output: Urine 675 900 950 Other: Voiding Method Indwelling Catheter Indwelling Catheter Indwelling Catheter ABP, PAP, CO, CI - Last Documented Arterial Blood Pressure 100/71 - Labs CBC & Chem 7: 04/06/19 05:07 04/10/19 06:15 Labs: Abnormal Lab Results - Last 24 Hours (Table) 04/10/19 04/10/19 04/10/19 Range/Units 06:15 09:57 10:17 Potassium 5.3 H (3.5-5.1) mmol/L BUN 63 H (7-17) mg/dL Creatinine 2.20 H (0.52-1.04) mg/dL Glucose 62 L (74-99) mg/dL POC Glucose (mg/dL) 67 L 134 H (75-99) mg/dL
--- NOTE | 2019-04-10 18:29 | PN ---
PROGRESS NOTE DATE OF SERVICE: 04/10/2019 REASON FOR FOLLOWUP: 1. UTI. 2. Abdominal wall seroma. INTERVAL HISTORY: The patient is currently afebrile. The patient is breathing comfortably. The patient denies having any chest pain or any cough. No nausea, no vomiting, no abdominal pain or diarrhea. PHYSICAL EXAMINATION: Blood pressure 112/60 with a pulse of 93, temperature 98.1. He is 92% on 6 L oxygen. General description is an elderly female lying in bed in no distress. RESPIRATORY SYSTEM: Unlabored breathing. Clear to auscultation anteriorly. HEART: S1, S2. Regular rate and rhythm. ABDOMEN: Soft. No tenderness. Drainage catheter currently with no significant output. LABS: BUN of 63, creatinine is 2.20. DIAGNOSTIC IMPRESSION AND PLAN: 1. Patient with a urinary tract infection. Urine has been Frida albicans, adequately treated with diflucan. That can be discontinued. 2. Patient with abdominal wall seroma, status post readjustment of the drainage catheter, still with no output. Recommend discontinuing the same, with the culture negative. Recommend no further antibiotics. MMODL / IJN: [id number] /
[2019-04-10] MEDS: MIRTAZAPINE 15 MG TAB PO SCH (21:21)
[2019-04-11] MEDS: PANTOPRAZOLE 40 MG TABLET PO SCH (06:37)
[2019-04-11 07:19] LABS: Albumin 2.9 g/dL (3.5-5.0); Calcium 8.6 mg/dL (8.4-10.2); Potassium 4.2 mmol/L (3.5-5.1); Total Bilirubin 1.2 mg/dL (0.2-1.3); Total Protein 6.2 g/dL (6.3-8.2)
[2019-04-11] MEDS: METOPROLOL TARTRATE 25 MG TAB PO SCH ×2 (10:18→21:03)
[2019-04-11] MEDS: HEPARIN SODIUM,PORCINE 5,000 UNIT/ML 1 ML VIAL SQ SCH ×3 (10:18→21:04)
[2019-04-11] MEDS: FUROSEMIDE 10 MG/ML 10 ML VIAL IV SCH ×2 (10:18→20:58)
[2019-04-11] MEDS: FLUCONAZOLE 100 MG TAB PO SCH (10:18)
--- NOTE | 2019-04-11 10:19 | P.PN ---
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 extensive medical history. Chronic stable medical conditions include GERD, hyperlipidemia, hypertension, osteoarthritis, had a stroke in 2017 left her with a slow speech, diverticulosis, PTSD ,depression, CHF EF of 65-70%, chronic cor pulmonale, severe secondary pulmonary hypertension and atrial fibrillation. 2 months ago-underwent small bowel resection, repair of strangulated ventral hernia and incarcerated umbilical hernia and partial omentectomy. On March 20 admitted with abdominal pain computed tomography scan-showed a large subcutaneous fluid collection on the lower anterior abdominal wall . Drain was placed. Cultures were positive for Corynebacterium stratum and Klebsiella pneumoniae. Treat with IV ceftriaxone. Discharged on March 25 to the F. Patient now presents with increasing weakness tiredness fatigue. Decreased appetite. Some shortness of breath. Increasing lower extremity swelling. The patient running low. Occasional bowel movement. Feeling tired and rundown. Initial blood pressure was in the 80s. Admitted to ICU. Started on IV fluids and dobutamine. Denies any obvious fever and chills. Admitted with-hypotension, acute kidney injury from a cardiorenal syndrome, acute on chronic cor pulmonale exacerbation. Diagnosed with depression. Was started on Lasix and dobutamine drip. Today-. Patient on Lasix 60 mg every 12 bolus. Oral intake remains to be poor.. Remains in negative fluid balance. Sr. the bedside. Review of systems: Was done for constitutional, cardiovascular, GI, pulmonary. relevant finding as above Active Medications Fluconazole (Diflucan) 100 mg PO DAILY [facility] Last Admin: 04/10/19 10:38 Dose: 100 mg Documented by: Furosemide (Lasix) 60 mg IV Q12HR [facility] Last Admin: 04/10/19 21:20 Dose: 60 mg Documented by: Heparin Sodium (Porcine) (Heparin) 5,000 unit SQ Q8HR [facility] Last Admin: 04/10/19 23:39 Dose: 5,000 unit Documented by: Metolazone (Zaroxolyn) 5 mg PO DAILY [facility] Last Admin: 04/10/19 10:38 Dose: 5 mg Documented by: Metoprolol Tartrate (Lopressor) 25 mg PO BID [facility] Last Admin: 04/10/19 21:21 Dose: 25 mg Documented by: Mirtazapine (Remeron) 7.5 mg PO HS [facility] Last Admin: 04/10/19 21:21 Dose: 7.5 mg Documented by: Nitroglycerin (Nitrostat) 0.4 mg SUBLINGUAL Q5M PRN PRN Reason: Chest Pain Ondansetron HCl (Zofran) 4 mg IVP Q6HR PRN PRN Reason: Nausea And Vomiting Last Admin: 04/07/19 20:04 Dose: 4 mg Documented by: Pantoprazole Sodium (Protonix) 40 mg PO AC-BRKFST [facility] Last Admin: 04/11/19 06:37 Dose: 40 mg Documented by: Tramadol HCl (Ultram) 50 mg PO Q12HR PRN PRN Reason: Pain Last Admin: 04/08/19 08:40 Dose: 50 mg Documented by: Physical examination: VITAL SIGNS: 98.5, 78, 18, 102/50, 95% on 6 L GENERAL: Laying in bed, awake, tired EYES: Pupils equal. Conjunctiva pale HEENT: External appearance of nose and ears normal, oral cavity grossly normal. NECK: Short and thick, JVD unable to assess; masses not palpable. HEART: Heart sounds muffled; edema decreased LUNGS: Respiratory rate normal; distant breath sounds. ABDOMEN: Soft, tender, JESSIKA drain in the abdominal wall,, liver spleen not palpable, no masses palpable. PSYCH: AO 3, mood and affect low INVESTIGATIONS, reviewed in the clinical context: Potassium 4.2 bun 66 creatinine 2.42 Previous testing White count 10.8 hemoglobin 12.1 ProTime 14.4 potassium 4.8 BUN 50 creatinine 2.25 Bun 27 creatinine 0.97 on March 23 Chest x-ray film personally reviewed by me-cardiomegaly, questionable right- sided infiltrate EKG tracing personally reviewed by me-Prashant paced rhythm Previous testing Computed tomography scan of the abdomen-fluid collection of lower anterior abdominal wall Wound culture from the abdominal wall drain--Corynebacterium striatum, Assessment: -Hypotension from acute cardiorenal syndrome -Acute lower abdominal wall fluid collection, JESSIKA drain in place, with cultures growing Corynebacterium Stratum., From last admission -Status post-incarcerated abdominal ventral wall hernia with small bowel, leading to repair of the same, -Acute on Chronic congestive heart failure from diastolic dysfunction EF 65- 70%,, status post dobutamine and Lasix drip,. -Acute on Chronic cor pulmonale, exacerbation, slow to respond -Severe secondary pulmonary hypertension from CHF -Hypertensive heart disease -Moderate mitral regurgitation, severe tricuspid regurgitation, mitral valve prolapse, nontraumatic -GERD -Hyperlipidemia -Essential hypertension, history of -Primary osteoarthritis -Chronic diverticulosis -Morbid obesity BMI 54.5 -Possibly obesity hypoventilation syndrome -Biventricular pacemaker -Metabolic acidosis from acute kidney injury related -Depressive disorder unspecified, started on Remeron -Advancing medical debility Plan: -Patient on Lasix bolus 60 mg, every 12 hours. Remains in negative fluid balance. Oral intake poor. Tired rundown. Continue current medications.. Advanced care planning: Had a very lengthy discussion with the patient and assist at the bedside. Patient does live at her sister's house. Patient is barely been eating. Her quality of life has been tolerating the last few weeks. He will after several coaxing of the hospital is difficult for patient to eat. Her mobility status is not good. Patient and the sister both understand to call the .. I did bring up the topic of hospice. The patient will think about the same. At this point patient remains a full code. I also talked about DO NOT RESUSCITATE CODE STATUS given her condition. She will also think more about the same. Patient's sister. Will be the Decision-maker if the patient unable to do so. This to be further addressed at next day or so. About 25 minutes was spent on acp
[2019-04-11] MEDS: METOLAZONE 5 MG TAB PO SCH (10:25)
--- NOTE | 2019-04-11 10:33 | P.PN ---
Subjective Patient is seen in follow-up for acute kidney injury. Renal function is worse which is due to diuresis. Creatinine 2.42 today. Still quite edematous. She is maintained on IV Lasix 60 mg twice daily. Dobutamine discontinued April 09. She is nonoliguric. Patient's mentation is improved. She denies any active complaints. Vital signs are stable. General: The patient appeared well nourished and normally developed. HEENT: Head exam is unremarkable. Neck is without jugular venous distension. LUNGS: Breath sounds decreased. HEART: Rate and Rhythm are regular. First and second heart sounds normal. No murmurs, rubs or gallops. ABDOMEN: Abdominal exam reveals normal bowel sounds. Non-tender and non- distended. EXTREMITITES: 2+ edema. Objective - Vital Signs Vital signs: Vital Signs Temp 97.2 F L 04/11/19 03:39 Pulse 101 H 04/11/19 03:39 Resp 18 04/11/19 03:39 BP 117/68 04/11/19 03:39 Pulse Ox 95 04/11/19 03:39 Intake & Output 04/10/19 04/11/19 04/11/19 18:59 06:59 18:59 Intake Total 120 Output Total 950 850 Balance -950 -730 Weight 110 kg Intake: Oral 120 Output: Urine 950 850 Other: Voiding Method Indwelling Catheter Indwelling Catheter ABP, PAP, CO, CI - Last Documented Arterial Blood Pressure 100/71 - Labs CBC & Chem 7: 04/06/19 05:07 04/11/19 06:52 Labs: Abnormal Lab Results - Last 24 Hours (Table) 04/10/19 04/11/19 Range/Units 10:17 06:52 BUN 66 H (7-17) mg/dL Creatinine 2.42 H (0.52-1.04) mg/dL POC Glucose (mg/dL) 134 H (75-99) mg/dL Total Protein 6.2 L (6.3-8.2) g/dL Albumin 2.9 L (3.5-5.0) g/dL Assessment and Plan Plan: Assessment: 1. Acute kidney injury mostly prerenal secondary to cardiorenal syndrome. Renal function worse due to diuresis. Creatinine 2.42 today. 2. Volume overload. 3. Acute on chronic diastolic CHF with severe mitral and tricuspid regurgitation. 4. Severe pulmonary hypertension. 5. Intra-abdominal abscess requiring tube drainage. Maintained on IV antibiotics. 6. Hypomagnesemia secondary to diuresis. Better. Plan: Maintain IV Lasix 60 mg twice daily for another 24 hours. Will transition to oral diuretics tomorrow. Maintain metolazone. Continue to monitor renal function and urine output. Repeat electrolytes in the morning. Hold amlodipine for systolic blood pressure less than 120. Monitor volume status closely. Check chest x-ray tomorrow. Due to underlying cardiac status and comorbidities, she will not be an ideal candidate for renal replacement therapy.
[2019-04-11 12:25] LABS: Glucose,Whole Blood 75 mg/dL (75-99)
[2019-04-11] MEDS: traMADol 50 MG TAB PO PRN ×2 (12:30→23:48)
[2019-04-11 17:11] LABS: Glucose,Whole Blood 79 mg/dL (75-99)
--- NOTE | 2019-04-11 18:11 | P.PN ---
Subjective Progress Note Date: 04/11/19 Principal diagnosis: Acute cardiorenal syndrome/hypotension Acute exacerbation diastolic CHF Acute on chronic cor pulmonale Severe pulmonary hypertension Status post incarcerated abdominal ventral wall hernia with lower abdominal wall fluid collection 04/11/2019 Patient is seen and evaluated in room at bedside; remains quite lethargic; opens eyes to verbal stimulation and then falls right back to sleep; family is at bedside and reports that patient wishes to remain full code and family members are in process of visiting patient and talking to her so her CODE STATUS couldn't be changed; patient remains full code in the meantime; hospice care has been discussed already; no certain decisions made yet Objective - Vital Signs Vital signs: Vital Signs Temp 97.7 F 04/11/19 16:30 Pulse 84 04/11/19 16:30 Resp 18 04/11/19 16:30 BP 137/95 04/11/19 16:30 Pulse Ox 95 04/11/19 16:30 Intake & Output 04/10/19 04/11/19 04/11/19 18:59 06:59 18:59 Intake Total 120 25 Output Total 950 850 Balance -950 -730 25 Weight 110 kg 110 kg Intake: Oral 120 25 Output: Urine 950 850 Other: Voiding Method Indwelling Catheter Indwelling Catheter Indwelling Catheter # Voids 625 ABP, PAP, CO, CI - Last Documented Arterial Blood Pressure 100/71 - Exam GENERAL: Laying in bed, awake, tired EYES: Pupils equal. Conjunctiva pale HEENT: External appearance of nose and ears normal, oral cavity grossly normal. NECK: Short and thick, JVD unable to assess; masses not palpable. HEART: Heart sounds muffled; edema decreased LUNGS: Respiratory rate normal; distant breath sounds. ABDOMEN: Soft, tender, JESSIKA drain in the abdominal wall,, liver spleen not palpable, no masses palpable. - Labs CBC & Chem 7: 04/06/19 05:07 04/11/19 06:52 Labs: Abnormal Lab Results - Last 24 Hours (Table) 04/11/19 Range/Units 06:52 BUN 66 H (7-17) mg/dL Creatinine 2.42 H (0.52-1.04) mg/dL Total Protein 6.2 L (6.3-8.2) g/dL Albumin 2.9 L (3.5-5.0) g/dL Assessment and Plan Assessment: -Hypotension from acute cardiorenal syndrome -Acute lower abdominal wall fluid collection, JESSIKA drain in place, with cultures growing Corynebacterium Stratum., From last admission -Status post-incarcerated abdominal ventral wall hernia with small bowel, leading to repair of the same, -Acute on Chronic congestive heart failure from diastolic dysfunction EF 65- 70%,, status post dobutamine and Lasix drip,. -Acute on Chronic cor pulmonale, exacerbation, slow to respond -Severe secondary pulmonary hypertension from CHF -Hypertensive heart disease -Moderate mitral regurgitation, severe tricuspid regurgitation, mitral valve prolapse, nontraumatic -GERD -Hyperlipidemia -Essential hypertension, history of -Primary osteoarthritis -Chronic diverticulosis -Morbid obesity BMI 54.5 -Possibly obesity hypoventilation syndrome -Biventricular pacemaker -Metabolic acidosis from acute kidney injury related -Depressive disorder unspecified, started on Remeron -Advancing medical debility Plan: -Patient on Lasix bolus 60 mg, every 12 hours. Remains in negative fluid balance. Oral intake poor. Tired rundown. Continue current medications..
--- NOTE | 2019-04-11 19:41 | PN ---
PROGRESS NOTE DATE OF SERVICE: 04/11/2019 REASON FOR FOLLOWUP: 1. UTI, adequately treated. 2. Patient with abdominal wall seroma, question of infected. INTERVAL HISTORY: The patient is currently afebrile. The patient has been breathing comfortably. The patient denies having any chest pain or shortness of breath. Occasional cough. No abdominal pain. No diarrhea. The patient mentioned the drainage catheter was discontinued yesterday. PHYSICAL EXAMINATION: Blood pressure 106/63 with a pulse of 91, temperature 97.9. She is 94% on 5 L of oxygen. General description is an elderly female lying in bed in no distress. RESPIRATORY SYSTEM: Unlabored breathing. Clear to auscultation anteriorly. HEART: S1, S2. Regular rate and rhythm. ABDOMEN: Soft. No tenderness. LABS: Creatinine is up to 2.42. DIAGNOSTIC IMPRESSION AND PLAN: 1. Patient admitted to hospital with hypertension, multifactorial; possible component of urinary tract infection. Urine with Frida albicans, but has been adequately treated. Discontinue Diflucan. 2. Patient with an abdominal wall seroma. Initial concern was possible infection. Drainage catheter was adjusted. No output and it has been discontinued. Culture was corynebacterium, likely contamination. Off antibiotics. Will monitor the patient closely off antibiotic therapy. MMODL / IJN: [id number] /
[2019-04-11 20:45] LABS: Glucose,Whole Blood 81 mg/dL (75-99)
[2019-04-11] MEDS: MIRTAZAPINE 15 MG TAB PO SCH (21:02)
[2019-04-11] MEDS: ONDANSETRON 4 MG/2 ML VIAL IVP PRN (21:13)
[2019-04-12 06:30] LABS: Glucose,Whole Blood 83 mg/dL (75-99)
[2019-04-12] MEDS: PANTOPRAZOLE 40 MG TABLET PO SCH (06:37)
[2019-04-12 06:57] LABS: Anisocytosis Slight; Basophils # (A) 0.1 k/uL (0-0.2); Basophils % (A) 1 %; Eosinophils # (A) 0.2 k/uL (0-0.7); Eosinophils % (A) 3 %; HCT 38.3 % (34.0-46.0); HGB 11.4 gm/dL (11.4-16.0); Hypochromasia Marked; Lymphocytes # (A) 0.5 k/uL (1.0-4.8); Lymphocytes % (A) 7 %; MCH 28.4 pg (25.0-35.0); MCHC 29.6 g/dL (31.0-37.0); MCV 95.7 fL (80.0-100.0); Macrocytosis Slight; Mean Platelet Volume 12.4; Monocytes # (A) 0.5 k/uL (0-1.0); Monocytes % (A) 7 %; Neutrophils % (A) 80 %; Platelet Count 154 k/uL (150-450); Poikilocytosis Slight; RDW 17.7 % (11.5-15.5); WBC 7.5 k/uL (3.8-10.6)
[2019-04-12 07:34] LABS: Calcium 8.6 mg/dL (8.4-10.2); Potassium 4.1 mmol/L (3.5-5.1)
[2019-04-12] MEDS: ONDANSETRON 4 MG/2 ML VIAL IVP PRN (09:00)
[2019-04-12] MEDS: HEPARIN SODIUM,PORCINE 5,000 UNIT/ML 1 ML VIAL SQ SCH ×3 (10:54→20:23)
[2019-04-12] MEDS: METOLAZONE 5 MG TAB PO SCH (10:54)
[2019-04-12] MEDS: METOPROLOL TARTRATE 25 MG TAB PO SCH ×2 (10:54→20:19)
[2019-04-12] MEDS: FUROSEMIDE 10 MG/ML 10 ML VIAL IV SCH (10:55)
[2019-04-12 12:18] LABS: Glucose,Whole Blood 84 mg/dL (75-99)
--- NOTE | 2019-04-12 12:48 | P.PN ---
Subjective Progress Note Date: 04/12/19 The patient was examined resting comfortably in bed. She stated to me that she did not want to be bothered at this time as she is trying to rest. She denies any chest pain or shortness of breath, however did not answer additional ROS questions. Overnight her telemetry readings showed atrial fibrillation, rate controlled in the 70s to 80s. Vital signs stable overnight. Currently on 5 L nasal cannula maintaining saturations above 94%. GENERAL: Well-appearing, well-nourished and in no acute distress. NECK: Supple without JVD or thyromegaly. LUNGS: Breath sounds diminished bilaterally. Respiration equal and unlabored. No wheezes, rales or rhonchi. Currently on oxygen. HEART: Irregular rate and rhythm without rubs or gallops. Systolic murmur audible. S1 and S2 heard. EXTREMITIES: Normal range of motion. No clubbing or cyanosis. Peripheral pulses intact and strong. +1 lower extremity edema Impression: #1 acute on chronic diastolic heart failure #2 nonischemic cardiomyopathy #3 acute kidney injury, creatinine rising #4 persistent atrial fibrillation, not on anticoagulation due to history of brain bleed #5 cor pulmonale with severe pulmonary hypertension and right-sided heart failure #6 valvular heart disease, moderate mitral regurgitation and severe tricuspid regurgitation #7 hypertension #8 dyslipidemia Plan: Discontinue IV Lasix. We will start 40 mg twice daily by mouth. Continue metolazone. Continue to monitor BUN/creatinine. Objective - Vital Signs Vital signs: Vital Signs Temp 97.4 F L 04/12/19 08:00 Pulse 94 04/12/19 08:00 Resp 16 04/12/19 08:00 BP 149/68 04/12/19 08:00 Pulse Ox 94 L 04/12/19 08:00 Intake & Output 04/11/19 04/12/19 04/12/19 18:59 06:59 18:59 Intake Total 25 240 0 Output Total 900 Balance 25 -660 0 Weight 110 kg 108.5 kg Intake: Oral 25 240 0 Output: Urine 900 Other: Voiding Method Indwelling Catheter Indwelling Catheter # Voids 625 ABP, PAP, CO, CI - Last Documented Arterial Blood Pressure 100/71 - Labs CBC & Chem 7: 04/12/19 06:19 04/12/19 06:19 Labs: Abnormal Lab Results - Last 24 Hours (Table) 04/12/19 04/12/19 Range/Units 06:19 06:19 MCHC 29.6 L (31.0-37.0) g/dL RDW 17.7 H (11.5-15.5) % Lymphocytes # 0.5 L (1.0-4.8) k/uL BUN 69 H (7-17) mg/dL Creatinine 2.68 H (0.52-1.04) mg/dL
--- NOTE | 2019-04-12 12:53 | P.PN ---
Subjective Progress Note Date: 04/12/19 Follow-up for acute kidney injury. Objective - Vital Signs Vital signs: Vital Signs Temp 97.4 F L 04/12/19 08:00 Pulse 94 04/12/19 08:00 Resp 16 04/12/19 08:00 BP 149/68 04/12/19 08:00 Pulse Ox 94 L 04/12/19 08:00 Intake & Output 04/11/19 04/12/19 04/12/19 18:59 06:59 18:59 Intake Total 25 240 0 Output Total 900 Balance 25 -660 0 Weight 110 kg 108.5 kg Intake: Oral 25 240 0 Output: Urine 900 Other: Voiding Method Indwelling Catheter Indwelling Catheter # Voids 625 ABP, PAP, CO, CI - Last Documented Arterial Blood Pressure 100/71 - Exam No acute distress S1-S2 heard Decreased breath sounds Edema - Labs CBC & Chem 7: 04/12/19 06:19 04/12/19 06:19 Labs: Abnormal Lab Results - Last 24 Hours (Table) 04/12/19 04/12/19 Range/Units 06:19 06:19 MCHC 29.6 L (31.0-37.0) g/dL RDW 17.7 H (11.5-15.5) % Lymphocytes # 0.5 L (1.0-4.8) k/uL BUN 69 H (7-17) mg/dL Creatinine 2.68 H (0.52-1.04) mg/dL Assessment and Plan Assessment: #1 acute kidney injury secondary to cardiorenal syndrome/ischemic ATN #2 edema #3 diastolic CHF with pulmonary hypertension #4 intra-abdominal abscess requiring tube drainage Plan: #1 continue with Lasix, decreased to 40 twice a day. Continue with metolazone for now. #2 avoid nephrotoxic agents and hypotensive episodes. #3 no acute indication for renal replacement therapy at this time.
--- NOTE | 2019-04-12 15:58 | P.PN ---
Subjective Progress Note Date: 04/12/19 Principal diagnosis: Acute cardiorenal syndrome/hypotension Acute exacerbation diastolic CHF Acute on chronic cor pulmonale Severe pulmonary hypertension Status post incarcerated abdominal ventral wall hernia with lower abdominal wall fluid collection 04/11/2019 Patient is seen and evaluated in room at bedside; remains quite lethargic; opens eyes to verbal stimulation and then falls right back to sleep; family is at bedside and reports that patient wishes to remain full code and family members are in process of visiting patient and talking to her so her CODE STATUS couldn't be changed; patient remains full code in the meantime; hospice care has been discussed already; no certain decisions made yet 04/12/2019 Patient is seen and evaluated in room at bedside; will motivate compared to yesterday; denies any specific complaints Cardiology is following and IV Lasix has been discontinued and patient is transition to oral Lasix at 40 mg twice a day; patient will remain on current dose of metolazone; continue to monitor strict RONALD's and daily weights along with renal function and electrolytes; nephrology is consulted and agreeable to Lasix 40 mg twice a day; continue to avoid nephrotoxic agents and hypotension; no indication for renal replacement therapy at this time Objective - Vital Signs Vital signs: Vital Signs Temp 98.2 F 04/12/19 04:00 Pulse 88 04/12/19 04:00 Resp 20 04/12/19 04:00 BP 118/72 04/12/19 04:00 Pulse Ox 96 04/12/19 04:00 Intake & Output 04/11/19 04/12/19 04/12/19 18:59 06:59 18:59 Intake Total 25 240 Output Total 900 Balance 25 -660 Weight 110 kg 108.5 kg Intake: Oral 25 240 Output: Urine 900 Other: Voiding Method Indwelling Catheter Indwelling Catheter # Voids 625 ABP, PAP, CO, CI - Last Documented Arterial Blood Pressure 100/71 - Exam GENERAL: Laying in bed, awake, tired EYES: Pupils equal. Conjunctiva pale HEENT: External appearance of nose and ears normal, oral cavity grossly normal. NECK: Short and thick, JVD unable to assess; masses not palpable. HEART: Heart sounds muffled; edema decreased LUNGS: Respiratory rate normal; distant breath sounds. ABDOMEN: Soft, tender, JESSIKA drain in the abdominal wall,, liver spleen not palpable, no masses palpable. - Labs CBC & Chem 7: 04/12/19 06:19 04/12/19 06:19 Labs: Abnormal Lab Results - Last 24 Hours (Table) 04/12/19 04/12/19 Range/Units 06:19 06:19 MCHC 29.6 L (31.0-37.0) g/dL RDW 17.7 H (11.5-15.5) % Lymphocytes # 0.5 L (1.0-4.8) k/uL BUN 69 H (7-17) mg/dL Creatinine 2.68 H (0.52-1.04) mg/dL Assessment and Plan Assessment: -Hypotension from acute cardiorenal syndrome -Acute lower abdominal wall fluid collection, JESSIKA drain in place, with cultures growing Corynebacterium Stratum., From last admission -Status post-incarcerated abdominal ventral wall hernia with small bowel, leading to repair of the same, -Acute on Chronic congestive heart failure from diastolic dysfunction EF 65- 70%,, status post dobutamine and Lasix drip,. -Acute on Chronic cor pulmonale, exacerbation, slow to respond -Severe secondary pulmonary hypertension from CHF -Hypertensive heart disease -Moderate mitral regurgitation, severe tricuspid regurgitation, mitral valve prolapse, nontraumatic -GERD -Hyperlipidemia -Essential hypertension, history of -Primary osteoarthritis -Chronic diverticulosis -Morbid obesity BMI 54.5 -Possibly obesity hypoventilation syndrome -Biventricular pacemaker -Metabolic acidosis from acute kidney injury related -Depressive disorder unspecified, started on Remeron -Advancing medical debility Plan: -Patient on Lasix bolus 60 mg, every 12 hours. Remains in negative fluid balance. Oral intake poor. Tired rundown. Continue current medications..
[2019-04-12 17:22] LABS: Glucose,Whole Blood 73 mg/dL (75-99)
[2019-04-12] MEDS: FUROSEMIDE 40 MG TAB PO SCH (17:33)
[2019-04-12] MEDS: MIRTAZAPINE 15 MG TAB PO SCH (20:07)
[2019-04-12 20:13] LABS: Glucose,Whole Blood 74 mg/dL (75-99)
[2019-04-12] MEDS: traMADol 50 MG TAB PO PRN (20:19)
[2019-04-13 01:57] LABS: Glucose,Whole Blood 73 mg/dL (75-99)
[2019-04-13] MEDS: PANTOPRAZOLE 40 MG TABLET PO SCH (06:12)
[2019-04-13 06:15] LABS: Glucose,Whole Blood 75 mg/dL (75-99)
[2019-04-13 07:06] LABS: Anisocytosis Slight; Basophils # (A) 0.1 k/uL (0-0.2); Basophils % (A) 1 %; Eosinophils # (A) 0.2 k/uL (0-0.7); Eosinophils % (A) 3 %; HCT 39.8 % (34.0-46.0); HGB 11.5 gm/dL (11.4-16.0); Hypochromasia Marked; Lymphocytes # (A) 0.6 k/uL (1.0-4.8); Lymphocytes % (A) 8 %; MCH 27.7 pg (25.0-35.0); MCHC 28.8 g/dL (31.0-37.0); MCV 96.1 fL (80.0-100.0); Macrocytosis Slight; Mean Platelet Volume 12.9; Monocytes # (A) 0.5 k/uL (0-1.0); Monocytes % (A) 6 %; Neutrophils # (A) 6.1 k/uL (1.3-7.7); Neutrophils % (A) 80 %; Platelet Count 168 k/uL (150-450); Poikilocytosis Slight; RBC 4.14 m/uL (3.80-5.40); RDW 17.8 % (11.5-15.5); WBC 7.6 k/uL (3.8-10.6)
[2019-04-13 08:06] LABS: Large Platelets Present
[2019-04-13] MEDS: METOPROLOL TARTRATE 25 MG TAB PO SCH ×2 (09:08→20:32)
[2019-04-13] MEDS: HEPARIN SODIUM,PORCINE 5,000 UNIT/ML 1 ML VIAL SQ SCH ×3 (09:08→23:24)
[2019-04-13] MEDS: FUROSEMIDE 40 MG TAB PO SCH (09:08)
[2019-04-13] MEDS: METOLAZONE 5 MG TAB PO SCH (09:09)
[2019-04-13 10:49] LABS: Calcium 8.9 mg/dL (8.4-10.2); Potassium 4.5 mmol/L (3.5-5.1)
--- NOTE | 2019-04-13 11:57 | P.PN ---
Subjective Progress Note Date: 04/13/19 Follow-up for acute kidney injury. Objective - Vital Signs Vital signs: Vital Signs Temp 98.2 F 04/13/19 04:00 Pulse 102 H 04/13/19 08:00 Resp 18 04/13/19 08:00 BP 106/77 04/13/19 08:00 Pulse Ox 95 04/13/19 08:00 Intake & Output 04/12/19 04/13/19 04/13/19 18:59 06:59 18:59 Intake Total 20 120 Output Total 500 400 Balance -480 -400 120 Weight 107 kg Intake: Oral 20 120 Output: Urine 500 400 Other: Voiding Method Indwelling Catheter Indwelling Catheter Indwelling Catheter ABP, PAP, CO, CI - Last Documented Arterial Blood Pressure 100/71 - Exam No acute distress S1-S2 heard Decreased breath sounds Edema - Labs CBC & Chem 7: 04/13/19 05:58 04/13/19 05:58 Labs: Abnormal Lab Results - Last 24 Hours (Table) 04/12/19 04/12/19 04/13/19 Range/Units 16:58 20:12 01:54 MCHC (31.0-37.0) g/dL RDW (11.5-15.5) % Lymphocytes # (1.0-4.8) k/uL BUN (7-17) mg/dL Creatinine (0.52-1.04) mg/dL Glucose (74-99) mg/dL POC Glucose (mg/dL) 73 L 74 L 73 L (75-99) mg/dL 04/13/19 04/13/19 Range/Units 05:58 05:58 MCHC 28.8 L (31.0-37.0) g/dL RDW 17.8 H (11.5-15.5) % Lymphocytes # 0.6 L (1.0-4.8) k/uL BUN 75 H (7-17) mg/dL Creatinine 3.12 H (0.52-1.04) mg/dL Glucose 68 L (74-99) mg/dL POC Glucose (mg/dL) (75-99) mg/dL Assessment and Plan Assessment: #1 acute kidney injury secondary to cardiorenal syndrome/ischemic ATN. Creeping creatinine suspect overdiuresis #2 edema, with third spacing #3 diastolic CHF with pulmonary hypertension #4 intra-abdominal abscess requiring tube drainage Plan: #1 stop all diuretics. Add 0.9 saline at 75 ML's an hour. #2 avoid nephrotoxic agents and hypotensive episodes. #3 no acute indication for renal replacement therapy at this time. #4 labs in the morning
[2019-04-13 12:43] LABS: Glucose,Whole Blood 75 mg/dL (75-99)
[2019-04-13] MEDS: SODIUM CHLORIDE 0.9% 1,000 ML IV SCH ×2 (13:14→23:28)
--- NOTE | 2019-04-13 13:45 | P.PN ---
Subjective Progress Note Date: 04/13/19 The patient was resting comfortably in bed when evaluated. She is much more awake and alert today. She denies any chest pain, palpitations, dizziness, or vertigo. She states she would have some shortness of breath if she were to try to exert herself. Overnight her vital signs were stable. Temperature 96.9. Pulse 97, blood pressure 111/68, SpO2 greater then 92% on 5 L nasal cannula. 05/13/2019: The patient was examined resting comfortably in bed. She stated to me that she did not want to be bothered at this time as she is trying to rest. She denies any chest pain or shortness of breath, however did not answer additional ROS questions. Overnight her telemetry readings showed atrial fibrillation, rate controlled in the 70s to 80s. Vital signs stable overnight. Currently on 5 L nasal cannula maintaining saturations above 94%. GENERAL: Well-appearing, well-nourished and in no acute distress. NECK: Supple without JVD or thyromegaly. LUNGS: Breath sounds diminished bilaterally. Respiration equal and unlabored. No wheezes, rales or rhonchi. Currently on oxygen. HEART: Irregular rate and rhythm without rubs or gallops. Systolic murmur audible. S1 and S2 heard. EXTREMITIES: Normal range of motion. No clubbing or cyanosis. Peripheral pulses intact and strong. +1 lower extremity edema Impression: #1 acute on chronic diastolic heart failure #2 nonischemic cardiomyopathy #3 acute kidney injury, creatinine rising #4 persistent atrial fibrillation, not on anticoagulation due to history of brain bleed #5 cor pulmonale with severe pulmonary hypertension and right-sided heart failure #6 valvular heart disease, moderate mitral regurgitation and severe tricuspid regurgitation #7 hypertension #8 dyslipidemia Plan: Discontinue metolazone as BUN and creatinine continue to rise. Continue furosemide 40 mg twice daily by mouth, however we may have to reduce in the future. Continue to monitor BUN/creatinine. Outpatient follow-up as to decision regarding treatment of valvular heart disease, which is likely contributing to her congestive heart failure. Objective - Vital Signs Vital signs: Vital Signs Temp 96.9 F L 04/13/19 12:00 Pulse 97 04/13/19 12:00 Resp 19 04/13/19 12:00 BP 111/68 04/13/19 12:00 Pulse Ox 94 L 04/13/19 12:00 Intake & Output 04/12/19 04/13/19 04/13/19 18:59 06:59 18:59 Intake Total 20 120 Output Total 500 400 Balance -480 -400 120 Weight 107 kg Intake: Oral 20 120 Output: Urine 500 400 Other: Voiding Method Indwelling Catheter Indwelling Catheter Indwelling Catheter ABP, PAP, CO, CI - Last Documented Arterial Blood Pressure 100/71 - Labs CBC & Chem 7: 04/13/19 05:58 04/13/19 05:58 Labs: Abnormal Lab Results - Last 24 Hours (Table) 04/12/19 04/12/19 04/13/19 Range/Units 16:58 20:12 01:54 MCHC (31.0-37.0) g/dL RDW (11.5-15.5) % Lymphocytes # (1.0-4.8) k/uL BUN (7-17) mg/dL Creatinine (0.52-1.04) mg/dL Glucose (74-99) mg/dL POC Glucose (mg/dL) 73 L 74 L 73 L (75-99) mg/dL 04/13/19 04/13/19 Range/Units 05:58 05:58 MCHC 28.8 L (31.0-37.0) g/dL RDW 17.8 H (11.5-15.5) % Lymphocytes # 0.6 L (1.0-4.8) k/uL BUN 75 H (7-17) mg/dL Creatinine 3.12 H (0.52-1.04) mg/dL Glucose 68 L (74-99) mg/dL POC Glucose (mg/dL) (75-99) mg/dL
--- NOTE | 2019-04-13 14:46 | P.PN ---
Subjective Progress Note Date: 04/13/19 Principal diagnosis: Acute cardiorenal syndrome/hypotension Acute exacerbation diastolic CHF Acute on chronic cor pulmonale Severe pulmonary hypertension Status post incarcerated abdominal ventral wall hernia with lower abdominal wall fluid collection 04/11/2019 Patient is seen and evaluated in room at bedside; remains quite lethargic; opens eyes to verbal stimulation and then falls right back to sleep; family is at bedside and reports that patient wishes to remain full code and family members are in process of visiting patient and talking to her so her CODE STATUS couldn't be changed; patient remains full code in the meantime; hospice care has been discussed already; no certain decisions made yet 04/12/2019 Patient is seen and evaluated in room at bedside; will motivate compared to yesterday; denies any specific complaints Cardiology is following and IV Lasix has been discontinued and patient is transition to oral Lasix at 40 mg twice a day; patient will remain on current dose of metolazone; continue to monitor strict RONALD's and daily weights along with renal function and electrolytes; nephrology is consulted and agreeable to Lasix 40 mg twice a day; continue to avoid nephrotoxic agents and hypotension; no indication for renal replacement therapy at this time 04/13/2019; Patient is seen and evaluated in room resting comfortably in bed; according to nursing staff patient has been refusing her oral medications; vital sign review shows patient to be slightly tachycardic with SpO2 of 95% on 5 L; labs are reviewed and show a continued worsening of renal failure with creatinine rising from 2.68 yesterday after 3.12; Cardiology is following and recommending to continue with Lasix 40 mg by mouth twice a day and discontinue metolazone because of worsening renal failure; patient will have outpatient follow-up with treatment of valvular heart disease but is slightly contracted waiting to her CHF; nephrology has seen patient and is recommending to continue all diuretics and start patient on normal saline at a rate of 75 mL an hour I did discuss plan of care with patient and also with patient's daughter on Sunday; patient reports that she should still be treated as full code and she will have her brother make a decision on further plan of care; patient reports that her brother is coming in today Objective - Vital Signs Vital signs: Vital Signs Temp 98.2 F 04/13/19 04:00 Pulse 102 H 04/13/19 08:00 Resp 18 04/13/19 08:00 BP 106/77 04/13/19 08:00 Pulse Ox 95 04/13/19 08:00 Intake & Output 04/12/19 04/13/19 04/13/19 18:59 06:59 18:59 Intake Total 20 120 Output Total 500 400 Balance -480 -400 120 Weight 107 kg Intake: Oral 20 120 Output: Urine 500 400 Other: Voiding Method Indwelling Catheter Indwelling Catheter Indwelling Catheter ABP, PAP, CO, CI - Last Documented Arterial Blood Pressure 100/71 - Exam GENERAL: Laying in bed, awake, tired EYES: Pupils equal. Conjunctiva pale HEENT: External appearance of nose and ears normal, oral cavity grossly normal. NECK: Short and thick, JVD unable to assess; masses not palpable. HEART: Heart sounds muffled; edema decreased LUNGS: Respiratory rate normal; distant breath sounds. ABDOMEN: Soft, tender, JESSIKA drain in the abdominal wall,, liver spleen not palpable, no masses palpable. - Labs CBC & Chem 7: 04/13/19 05:58 04/13/19 05:58 Labs: Abnormal Lab Results - Last 24 Hours (Table) 04/12/19 04/12/19 04/13/19 Range/Units 16:58 20:12 01:54 MCHC (31.0-37.0) g/dL RDW (11.5-15.5) % Lymphocytes # (1.0-4.8) k/uL POC Glucose (mg/dL) 73 L 74 L 73 L (75-99) mg/dL 04/13/19 Range/Units 05:58 MCHC 28.8 L (31.0-37.0) g/dL RDW 17.8 H (11.5-15.5) % Lymphocytes # 0.6 L (1.0-4.8) k/uL POC Glucose (mg/dL) (75-99) mg/dL Assessment and Plan Assessment: -Hypotension from acute cardiorenal syndrome -Acute lower abdominal wall fluid collection, JESSIKA drain in place, with cultures growing Corynebacterium Stratum., From last admission -Status post-incarcerated abdominal ventral wall hernia with small bowel, leading to repair of the same, -Acute on Chronic congestive heart failure from diastolic dysfunction EF 65- 70%,, status post dobutamine and Lasix drip,. -Acute on Chronic cor pulmonale, exacerbation, slow to respond -Severe secondary pulmonary hypertension from CHF -Hypertensive heart disease -Moderate mitral regurgitation, severe tricuspid regurgitation, mitral valve prolapse, nontraumatic -GERD -Hyperlipidemia -Essential hypertension, history of -Primary osteoarthritis -Chronic diverticulosis -Morbid obesity BMI 54.5 -Possibly obesity hypoventilation syndrome -Biventricular pacemaker -Metabolic acidosis from acute kidney injury related -Depressive disorder unspecified, started on Remeron -Advancing medical debility Plan: -Patient on Lasix bolus 60 mg, every 12 hours. Remains in negative fluid balance. Oral intake poor. Tired rundown. Continue current medications..
[2019-04-13 16:57] LABS: Glucose,Whole Blood 78 mg/dL (75-99)
[2019-04-13] MEDS: traMADol 50 MG TAB PO PRN (17:15)
[2019-04-13 20:04] LABS: Glucose,Whole Blood 89 mg/dL (75-99)
[2019-04-13] MEDS: MIRTAZAPINE 15 MG TAB PO SCH (20:24)
[2019-04-14 02:04] LABS: Glucose,Whole Blood 77 mg/dL (75-99)
[2019-04-14 05:16] LABS: Glucose,Whole Blood 96 mg/dL (75-99)
[2019-04-14] MEDS ORDERED: LORazepam 2 MG/ML INJ IV STA ×2 (05:35→11:33)
[2019-04-14 06:01] LABS: Glucose,Whole Blood 96 mg/dL (75-99)
--- NOTE | 2019-04-14 06:05 | CT ---
EXAMINATION TYPE: CT brain wo con DATE OF EXAM: 04/14/2019 COMPARISON: 04/10/2019 HISTORY: AMS, Seizure CT DLP: 1094.4 mGycm Automated exposure control for dose reduction was used. Multiple axial sections were obtained of the brain without contrast. There is cerebral cortical atrophy. There is 4 x 2 cm area of hypodensity in the left frontal lobe re lated to old infarct. There is no midline shift. There is no sign of intracranial hemorrhage. Calvari um is intact. There is 5 mm lacunar infarct anterior right internal capsule. Skull base is intact. IMPRESSION: Chronic small vessel ischemia. 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 No acute intracranial abnormal ity.
[2019-04-14 06:11] LABS: ABG Base Excess 0.4 mmol/L; ABG HCO3 26 mmol/L (21-25); ABG Oxygen Saturation 98.9 % (94-97); ABG PCO2 47 mmHg (35-45); ABG PH 7.35 (7.35-7.45); ABG PO2 115 mmHg (83-108); ABG TCO2 27 mmol/L (19-24); Allen Test Performed? Yes
[2019-04-14 07:12] LABS: Anisocytosis Slight; Basophils # (A) 0.1 k/uL (0-0.2); Basophils % (A) 1 %; Eosinophils # (A) 0.1 k/uL (0-0.7); Eosinophils % (A) 1 %; HCT 39.5 % (34.0-46.0); HGB 11.6 gm/dL (11.4-16.0); Hypochromasia Marked; Lymphocytes # (A) 0.4 k/uL (1.0-4.8); Lymphocytes % (A) 5 %; MCH 27.9 pg (25.0-35.0); MCHC 29.2 g/dL (31.0-37.0); MCV 95.5 fL (80.0-100.0); Macrocytosis Slight; Mean Platelet Volume 11.9; Monocytes # (A) 0.5 k/uL (0-1.0); Monocytes % (A) 5 %; Neutrophils # (A) 8.1 k/uL (1.3-7.7); Neutrophils % (A) 88 %; Platelet Count 197 k/uL (150-450); Poikilocytosis Slight; RBC 4.14 m/uL (3.80-5.40); RDW 17.7 % (11.5-15.5); WBC 9.3 k/uL (3.8-10.6)
[2019-04-14 07:28] LABS: Calcium 8.8 mg/dL (8.4-10.2); Potassium 4.6 mmol/L (3.5-5.1)
[2019-04-14] MEDS: PANTOPRAZOLE 40 MG TABLET PO SCH (09:34)
[2019-04-14] MEDS: HEPARIN SODIUM,PORCINE 5,000 UNIT/ML 1 ML VIAL SQ SCH ×2 (09:35→15:16)
[2019-04-14 10:13] LABS: Amorphous Sediment,Urine Rare /hpf; Appearance,Urine Turbid (Clear); Bacteria,Urine Rare /hpf; Bilirubin,Urine Negative (Negative); Blood,Urine Moderate (Negative); Color,Urine Yellow; Glucose,Urine (UA) Negative (Negative); Ketones,Urine Trace (Negative); Leukocyte Esterase,Urine Large (Negative); Nitrite,Urine Negative (Negative); PH, Urine 5.5 (5.0-8.0); Protein,Urine 2+ (Negative); RBC,Urine 63 /hpf (0-5); Specific Gravity,Urine 1.016 (1.001-1.035); Squamous Epithelial Cell,Urine 16 /hpf (0-4); Urobilinogen,Urine <2.0 mg/dL (<2.0); WBC,Urine 157 /hpf (0-5)
[2019-04-14] MEDS ORDERED: levETIRAcetam IV 1,000 MG in SALINE 1 100ML.BAG IVPB SCH (11:30)
[2019-04-14] MEDS ORDERED: VALPROATE SODIUM 1,500 MG in SODIUM CHLORIDE 0.9% 100 ML IVPB STA (11:33)
[2019-04-14] MEDS: METOPROLOL TARTRATE 25 MG TAB PO SCH ×2 (12:22→20:31)
[2019-04-14 13:08] VITALS: BMI 45.8
--- NOTE | 2019-04-14 14:01 | PN ---
PROGRESS NOTE DATE OF SERVICE: 04/14/2019 HISTORY OF PRESENT ILLNESS: This is a 68-year-old woman initially admitted with incarcerated abdominal hernia with some drainage, also had CHF acute exacerbation. CHF was thought to be acute on chronic diastolic dysfunction, ejection fraction 65% to 70%. The patient had diuresis with Lasix. The patient has also had cardiogenic shock and hypotension treated with Dobutamine drips, but subsequently patient developed an episode of unresponsiveness and code stroke was called. Blood sugar was found to be 30, but; however, repeat CAT scan of the brain showed evidence of lacunar infarct in old left frontal lobe and cortical infarct was also noted. One of the most recent CAT scan showed no acute abnormality, so the stroke was considered to be at least subacute per Neurology. Last night, the patient also developed seizures, possibly generalized tonic-clonic seizures. Depakote IV was given by Neurology and the patient was admitted. The patient admitted to ICU and is being closely monitored. Patient is sedated at this time. The EEG showed possible status epilepticus and the patient is also given Ativan at this time. The patient is sedated, unable to give coherent history. Most of the history taken from my discussion with staff and review of chart and discussion with the family at the bedside. Of note also the most recent urine testing also showed possible UTI as well. The patient is being closely monitored. PAST MEDICAL HISTORY: Reviewed. REVIEW OF SYSTEMS: Could not be taken because of the above mentioned reasons. CURRENT MEDICATIONS: Reviewed include heparin 5 subcu q.8, Lopressor 25 mg p.o. b.i.d., Remeron 7.5 q.h.s., Nitrostat, Zofran, Protonix, Ultram, Depakote, valproic acid 1.5 g IV stat. PHYSICAL EXAM: Patient is stuporous, sedated at this time. Pulse 110. Blood pressure 106/76, respiration 16, temperature normal, pulse ox 94% on 5 L. HEENT: Conjunctivae normal. Oral mucosa moist. NECK: No jugular venous distention. No lymph node enlargement. CARDIOVASCULAR SYSTEM: S1, S2, muffled. RESPIRATION: Breath sounds diminished at the bases, a few scattered rhonchi, no crackles. ABDOMEN: Soft, nontender. LEGS: Bilateral leg edema. NERVOUS SYSTEM: Diffusely weak, could not be evaluated completely because of the change in the mental status. SKIN: No ulcer, rash or bleeding. LABS: WBC is 9.2, hemoglobin is 11.6 and sodium 139, potassium 4.6, creatinine 3.53. UA noted. The creatinine on admission was 2.2. ASSESSMENT: 1. Acute generalized tonic-clonic seizures possibly status epilepticus. 2. Change in mental status, metabolic encephalopathy, multifactorial, secondary to above as well. 3. Congestive heart failure acute exacerbation, acute on chronic diastolic dysfunction, ejection fraction 65% to 70%, status post dobutamine and Lasix drip. 4. Cardiogenic shock, secondary to above. possible rt pneumonia 5. Acute on chronic renal failure. 6. Chronic kidney stage 3 baseline. 7. Acute on chronic cor pulmonale. 8. Severe secondary pulmonary hypertension. 9. Hypertensive heart disease. 10.Moderate mitral regurgitation. Severe tricuspid regurgitation. Mitral valve prolapse and not traumatic. 11.Acute hypoxic respiratory failure, multifactorial. 12.Status post incarcerated ventral abdominal hernia surgery and recent discharge and status post JESSIKA drain by Interventional Radiology. 13.Hypertension. 14.Hyperlipidemia. 15.Degenerative joint disease. 16.Diverticulosis. 17.Morbid obesity, body mass index of 54.5. 18.Obesity hypoventilation syndrome. 19.Biventricular pacemaker. 20.Metabolic acidosis. 21.Depression. 22.Medical debility. 23.FULL CODE. 24.Mild hyperkalemia secondary to renal failure. RECOMMENDATION: This 68-year-old woman who presented with multiple complex medical issues, will monitor the patient closely, continue with the current management and symptomatic treatment, otherwise at this time I recommend continue with the Depakote. Otherwise, closely follow with Neurology. I would also recommend empiric antibiotics with acute UTI. Closely follow with multiple consultants and also had discussed the case with Dr. Pina, the internal medicine on-call for Artie Schrader at [phone]. She is willing to transfer after acceptance by a neuro applications support engineer or a neurologist to whom which, Dr. De La Cruz, the neurologist talked to the neurologist regarding possible transfer. Will continue to monitor, prognosis guarded as mentioned above and further recommendations to follow. Discussed with staff, discussed the family. MMODL / IJN: [id number] / MTDD
[2019-04-14] MEDS ORDERED: cefTRIAXone 2 GM VIAL IVPB SCH (14:30)
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
--- NOTE | 2019-04-14 15:01 | XR ---
EXAMINATION TYPE: XR chest 1V portable DATE OF EXAM: 04/14/2019 COMPARISON: 04/09/2019 HISTORY: Right-sided pneumonia. Shortness of breath. TECHNIQUE: Single frontal view of the chest is obtained. FINDINGS: Continued obscuration of the right hemidiaphragm and small to moderate right pleural effus ion. Right perihilar and right basilar airspace disease are again seen with air bronchograms. Multile ad left-sided cardiac device is noted. Blunting of the left costophrenic angle is suspected although the entirety of the left costophrenic angle is not included in the imaging. Cardiomediastinal silhoue tte is enlarged. Right-sided subclavian approach central venous catheter is similar in position. IMPRESSION: Small to moderate right and suspected trace pleural effusions with associated bibasilar airspace disease. Right perihilar airspace disease demonstrates air bronchograms and could represent atelectasis or pneumonia. Underlying neoplasm is possible. Follow-up to resolution recommended.
[2019-04-14] MEDS: SODIUM CHLORIDE 0.9% 1,000 ML IV SCH (15:15)
--- NOTE | 2019-04-14 16:32 | P.PN ---
Subjective This is Nadine Lowry PA-C dictating a progress note on this patient The patient was interviewed and examined by me as well as by Dr. Boo Case discussed with Dr. Boo and he agrees with the plan of care HPI/interval history Patient is a 68-year-old female with a history of persistent atrial fibrillation, chronic diastolic heart failure, hypertension and dyslipidemia who is admitted to the ICU for treatment of heart failure. She was initially back to the floor for a few days however overnight she was moved back to the ICU with mental status changes. Brain CT showed chronic small vessel ischemia and an old left frontal lobe cortical infarct but no acute intracranial abnormality. Today her diuretics were discontinued by nephrology secondary to worsening renal failure and she was started on fluids. Patient seen and examined in the ICU. Lethargic and not responding to questions at this time. EXAMINATION Pulse is in the 100s, respirations 16, blood pressure 106/76, oxygen saturation 94% on 5 L nasal cannula Patient seen and examined resting in bed in the ICU, lethargic Breath sounds diminished bilaterally Heart is irregular, systolic murmur audible 2-3+ pitting lower extremity edema REVIEW OF LABS, ECG WBC 9.3, hemoglobin 11.6, platelets 197, potassium 4.6, BUN 78, creatinine 3.5. IMPRESSION / ASSESSMENT: Altered mental status, possibly secondary to seizures, nephrology following Acute on chronic diastolic heart failure Nonischemic cardiomyopathy LEAH, nephrology following Persistent atrial fibrillation, not on anticoagulation secondary to history of brain Cor pulmonale with pulmonary hypertension valvular heart disease, severe MR and severe TR Hypertension Dyslipidemia Status post incarcerated abdominal ventral wall hernia with lower abdominal wall fluid collection PLAN: Continue with fluids until her blood pressure improves and renal function improves Continue cardiac medications as her blood pressure tolerates When her blood pressure improves we will gradually restart her cardiac medications Further evaluation of mitral regurgitation when she stabilizes Objective - Vital Signs Vital signs: Vital Signs Temp 98.6 F 04/14/19 10:00 Pulse 112 H 04/14/19 12:00 Resp 16 04/14/19 12:00 BP 106/76 04/14/19 12:00 Pulse Ox 94 L 04/14/19 12:00 Intake & Output 04/13/19 04/14/19 04/14/19 18:59 06:59 18:59 Intake Total 120 0 Output Total 400 120 70 Balance -280 -120 -70 Weight 106.6 kg 103.1 kg Intake: Oral 120 0 Output: Urine 400 120 70 Other: Voiding Method Indwelling Catheter Indwelling Catheter Indwelling Catheter ABP, PAP, CO, CI - Last Documented Arterial Blood Pressure 100/71 - Labs CBC & Chem 7: 04/14/19 06:25 04/14/19 06:25 Labs: Abnormal Lab Results - Last 24 Hours (Table) 04/14/19 04/14/19 04/14/19 Range/Units 06:09 06:25 06:25 MCHC 29.2 L (31.0-37.0) g/dL RDW 17.7 H (11.5-15.5) % Neutrophils # 8.1 H (1.3-7.7) k/uL Lymphocytes # 0.4 L (1.0-4.8) k/uL ABG pCO2 47 H (35-45) mmHg ABG pO2 115 H (83-108) mmHg ABG HCO3 26 H (21-25) mmol/L ABG Total CO2 27 H (19-24) mmol/L ABG O2 Saturation 98.9 H (94-97) % BUN 78 H (7-17) mg/dL Creatinine 3.53 H (0.52-1.04) mg/dL Urine Appearance (Clear) Urine Protein (Negative) Urine Ketones (Negative) Urine Blood (Negative) Ur Leukocyte Esterase (Negative) Urine RBC (0-5) /hpf Urine WBC (0-5) /hpf Urine WBC Clumps (None) /hpf Ur Squamous Epith Cells (0-4) /hpf Amorphous Sediment (None) /hpf Urine Bacteria (None) /hpf 04/14/19 Range/Units 09:30 MCHC (31.0-37.0) g/dL RDW (11.5-15.5) % Neutrophils # (1.3-7.7) k/uL Lymphocytes # (1.0-4.8) k/uL ABG pCO2 (35-45) mmHg ABG pO2 (83-108) mmHg ABG HCO3 (21-25) mmol/L ABG Total CO2 (19-24) mmol/L ABG O2 Saturation (94-97) % BUN (7-17) mg/dL Creatinine (0.52-1.04) mg/dL Urine Appearance Turbid H (Clear) Urine Protein 2+ H (Negative) Urine Ketones Trace H (Negative) Urine Blood Moderate H (Negative) Ur Leukocyte Esterase Large H (Negative) Urine RBC 63 H (0-5) /hpf Urine WBC 157 H (0-5) /hpf Urine WBC Clumps Moderate H (None) /hpf Ur Squamous Epith Cells 16 H (0-4) /hpf Amorphous Sediment Rare H (None) /hpf Urine Bacteria Rare H (None) /hpf
[2019-04-14] MEDS ORDERED: VALPROATE SODIUM 750 MG in SODIUM CHLORIDE 0.9% 50 ML IVPB SCH (20:00)
[2019-04-14] MEDS: MIRTAZAPINE 15 MG TAB PO SCH (20:31)
[2019-04-14 20:36] VITALS: BP 109/73; TEMP 99.1
--- NOTE | 2019-04-14 21:14 | PN ---
PROGRESS NOTE Patient is seen for followup for acute kidney injury. She is currently on IV fluids. S/p recent diuresis. Her urine output 24 hours was about 900 mL. The patient denies any significant complaints. EXAMINATION: This morning blood pressure was 91/55, heart rate of 110 per minute, patient is afebrile. Examination of the heart S1, S2. Examination of the lungs, bilateral breath sounds are heard. Decreased breath sounds bases. Abdomen is soft, nontender. Examination lower extremities shows edema bilaterally. [employer]NA[employer] exam grossly intact. LABS: Show sodium 139, potassium 4.6, chloride 100, BUN 78, creatinine 3.5, hemoglobin 11.6 g/dL. UA shows WBCs 157, 2+ protein, blood moderate. ASSESSMENT: 1. Acute kidney injury secondary to ischemic acute tubular necrosis/cardiorenal syndrome. Diuretics were held yesterday and was started on IV fluids. It is currently at 75 mL an hour. Creatinine has further increased today at 3.5. I will continue with the IV fluids and continue to hold off on the Lasix and repeat labs in a.m. along with a chest x-ray in a.m. 2. Congestive heart failure, volume overload, now improved. 3. Diastolic congestive heart failure. 4. Pulmonary hypertension. 5. Intraabdominal abscess, maintained on Rocephin. Fluid culture grew Corynebacterium striatum. PLAN: Continue with IV fluids, repeat labs in a.m. MMODL / IJN: [id number] / MTDD
[2019-04-14 21:24] VITALS: PULSE 121; RESP 26
--- NOTE | 2019-04-15 14:07 | CDI ---
Documentation Clarification Form Date: 04/15/19 From: Nasra Chakraborty Phone: If you have a question about this query, please contact Jimena Brewer, Medical Leader at [phone] between 8am and 5pm. Admit Date: 04/01/19 Discharge Date: 04/14/19 Patient Name: Ana Sheppard Visit Number: [id number] ATTENTION: The Clinical Documentation Specialists (CDI) and [facility] Coding Staff appreciate your assistance in clarifying documentation. Please respond to the clarification below the line at the bottom and electronically sign. The CDI & [facility] Coding staff will review the response and follow-up if needed. Please note: Queries are made part of the Legal Health Record. If you have any questions, please contact the author of this message via ITS. Dear Dr. Jason Pepper, The patient presented feeling unwell, SOB & increased lower extremity swelling. History/Risk Factors: HX of infection following a procedure w peritoneal abscess on IV antibiotics, HTN w CKD 3 and acute on chronic diastolic CHF and biventricular heart failure, s/p stroke with speech issue, morbid obesity, Clinical Indicators:04/[address] Aby Archuleta & Dr Karla Lassiter state possible sepsis. WBC: 10.8 Lactic acid: 1.7 Blood cultures: negative Vitals signs on admission: T-97.9, P-101, R-20, BP-110/68 Other Clinical Indicators: Neutrophils-9.29 Treatment: IV fluids, IV antibiotics, IV Dobutrex drip, ID Consult: Yes, see above Antibiotics: IV Rocephin, IVMaxipime, IV Bolus: yes In your professional opinion, please clarify if these findings signify one of the following conditions, whether the condition is POA, and cause, if known: Condition Sepsis ruled out Sepsis Sepsis due post op wound infection Sepsis due Candidal UTI Severe Sepsis Septic Shock Other, please specify Unable to determine Present on Admission Yes No SIRS Criteria (2 or more of the following may indicate SIRS): -Temperature < 96.8F (36C) or > 101.0F (38.3C) -Heart Rate > 90 bpm -Respiratory Rate > 20 breaths/min or PaCO2 < 32 mmHg -White Blood Cell Count > 12,000 or < 4,000 cells/mm3 or > 10% bands -Lactate >2.0 mmol/L (>4.0 is equivalent to septic shock) Sepsis present on admission MTDD
--- NOTE | 2019-04-16 07:41 | DS ---
DISCHARGE SUMMARY FINAL DIAGNOSES: 1. Acute generalized tonic clonic seizures with possible status epilepticus. 2. Change in mental status, metabolic encephalopathy, multifactorial secondary to above. 3. Congestive heart failure acute exacerbation with acute on chronic diastolic dysfunction, ejection fraction of 65%-70%, status post dobutamine and Lasix drip. 4. Cardiogenic shock secondary to above. 5. Possible right-sided pneumonia, possibly gram-negative. .. 6. Acute on chronic renal failure. 7. Chronic kidney disease stage III baseline. 8. Acute on chronic cor pulmonale. 9. Severe secondary pulmonary hypertension. 10.Hypertensive heart disease with moderate mitral regurgitation and severe tricuspid regurgitation and mitral valve prolapse and not traumatic. 11.Acute hypoxic respiratory failure, multifactorial. 12.Status post incarcerated ventral hernia surgery and recent discharge, status post JESSIKA drain by Interventional Radiology. 13.Hypertension. 14.Hyperlipidemia. 15.Degenerative joint disease. 16.Diverticulosis. 17.Morbid obesity, body mass index of 54.5. 18.Obesity hypoventilation syndrome. 19.Biventricular pacemaker. 20.Metabolic acidosis. 21.Depression. 22.Medical debility. 23.Mild hyperkalemia secondary to renal failure. 24.FULL CODE. DISCHARGE DISPOSITION: The patient will be transferred to [facility], Neurology Unit for further evaluation and treatment. HISTORY OF PRESENT ILLNESS: This is a 68-year-old woman with a past medical history of multiple medical problems, was admitted initially with a change in mental status, metabolic encephalopathy. Patient also had CHF also, but the patient recently had abdominal surgery and JESSIKA drain inserted by Interventional Radiology, but; however, the patient developed generalized tonic-clonic seizures and EEG showed possible status epilepticus. Neurology saw the patient. Per neurology recommendations, I contacted [facility] and was unable to transfer after several calls and because of that, we called [facility] Neurology team and the patient will be transferred for Neurology for a 24 hour EEG monitoring. Currently, the patient is stable. Please see the medication reconciliation sheet for list of medications. Patient was also seen by multiple consultants during the hospitalization and the prognosis is extremely guarded throughout the hospitalization which I discussed at length with the family. The patient is followed by Dr. Elieser Cooper in the outpatient setting. MMODL / IJN: [id number] /
== END 2019-04-14 20:30 | disposition short-term general hospital (02) | DRG 871 ==
LOC: EC 06:31 → 5NMEDONC 09:56 → 3SCARD 11:51 → 2SICU 13:53 → 3SCARD 04-06 17:03 → 2SICU 04-14 05:50
PROVIDERS: ADMIT Hospitalist; ATTEND Hospitalist
PROC: 4A133J1 Monitoring of Arterial Pulse, Peripheral, Percutaneous Approach (ICD-10-PCS; principal; 2019-04-01)
PROC: 05H533Z Insertion of Infusion Device into Right Subclavian Vein, Percutaneous Approach (ICD-10-PCS; principal; 2019-04-01)
PROC: 03HY32Z Insertion of Monitoring Device into Upper Artery, Percutaneous Approach (ICD-10-PCS; principal; 2019-04-01)
PROC: 4A133B1 Monitoring of Arterial Pressure, Peripheral, Percutaneous Approach (ICD-10-PCS; principal; 2019-04-01)
PROC: 0W9F30Z Drainage of Abdominal Wall with Drainage Device, Percutaneous Approach (ICD-10-PCS; 2019-04-04)
DX: A41.9 Sepsis, unspecified organism (principal); I50.33 Acute on chronic diastolic (congestive) heart failure; N17.0 Acute kidney failure with tubular necrosis; K65.1 Peritoneal abscess; J96.01 Acute respiratory failure with hypoxia; R57.0 Cardiogenic shock; G93.41 Metabolic encephalopathy; I63.81 Other cerebral infarction due to occlusion or stenosis of small artery; I13.0 Hypertensive heart and chronic kidney disease with heart failure and stage 1 through stage 4 chronic kidney disease, or unspecified chronic kidney disease; E66.2 Morbid (severe) obesity with alveolar hypoventilation; I48.11 Longstanding persistent atrial fibrillation; E87.2 Acidosis; B37.49 Other urogenital candidiasis; T81.43XA Infection following a procedure, organ and space surgical site, initial encounter; I42.8 Other cardiomyopathies; Z68.43 Body mass index [BMI] 50.0-59.9, adult; I27.29 Other secondary pulmonary hypertension; D63.8 Anemia in other chronic diseases classified elsewhere; N18.3 Chronic kidney disease, stage 3 (moderate); Z66 Do not resuscitate; L52 Erythema nodosum; G40.401 Other generalized epilepsy and epileptic syndromes, not intractable, with status epilepticus; I27.81 Cor pulmonale (chronic); I50.82 Biventricular heart failure; B96.1 Klebsiella pneumoniae [K. pneumoniae] as the cause of diseases classified elsewhere; B96.89 Other specified bacterial agents as the cause of diseases classified elsewhere; G47.33 Obstructive sleep apnea (adult) (pediatric); E87.5 Hyperkalemia; E83.42 Hypomagnesemia; T50.2X5A Adverse effect of carbonic-anhydrase inhibitors, benzothiadiazides and other diuretics, initial encounter; I08.1 Rheumatic disorders of both mitral and tricuspid valves; I69.928 Other speech and language deficits following unspecified cerebrovascular disease; R40.2142 Coma scale, eyes open, spontaneous, at arrival to emergency department; R40.2362 Coma scale, best motor response, obeys commands, at arrival to emergency department; R40.2252 Coma scale, best verbal response, oriented, at arrival to emergency department; K21.9 Gastro-esophageal reflux disease without esophagitis; R40.2364 Coma scale, best motor response, obeys commands, 24 hours or more after hospital admission; R40.2134 Coma scale, eyes open, to sound, 24 hours or more after hospital admission; R40.2254 Coma scale, best verbal response, oriented, 24 hours or more after hospital admission; R29.705 NIHSS score 5; F32.9 Major depressive disorder, single episode, unspecified; F43.10 Post-traumatic stress disorder, unspecified; I25.10 Atherosclerotic heart disease of native coronary artery without angina pectoris; E78.5 Hyperlipidemia, unspecified; I87.8 Other specified disorders of veins; M19.91 Primary osteoarthritis, unspecified site; K57.90 Diverticulosis of intestine, part unspecified, without perforation or abscess without bleeding; G89.29 Other chronic pain; M54.31 Sciatica, right side; H18.602 Keratoconus, unspecified, left eye; R29.6 Repeated falls; Z91.81 History of falling; Z79.2 Long term (current) use of antibiotics; Z79.899 Other long term (current) drug therapy; Z71.3 Dietary counseling and surveillance; Z87.442 Personal history of urinary calculi; Z95.0 Presence of cardiac pacemaker; Z86.010 Personal history of colon polyps; Z96.652 Presence of left artificial knee joint; Z87.440 Personal history of urinary (tract) infections; Z87.19 Personal history of other diseases of the digestive system; Z90.49 Acquired absence of other specified parts of digestive tract; Z86.79 Personal history of other diseases of the circulatory system; Z98.890 Other specified postprocedural states; Z88.6 Allergy status to analgesic agent; Z91.041 Radiographic dye allergy status; Z82.49 Family history of ischemic heart disease and other diseases of the circulatory system; Z81.8 Family history of other mental and behavioral disorders
CPT/HCPCS: 10030; 36415; 36600; 70450; 71045; 71046; 74176; 76942; 80048; 80053; 80061; 81001; 82570; 82805; 83605; 83735; 83880; 84300; 84484; 84540; 85025; 85027; 85610; 85730; 86140; 87040; 87070; 87086; 87205; 89050; 93005; 93306; 94760; 95816; 96365; 96366; 96372; 96375; 99285